=== PATIENT | male | born 1950 | race Caucasian/White ===

== ENCOUNTER 2018-06-24 17:09 | Emergency (ER) | payer MEDICARE, SELFPAY ==
--- NOTE | 2018-06-24 17:18 | DI.RPTCT_ITS ---
SYMPTOM/DIAGNOSIS: ABDOMINAL PAIN, R/O ACUTE PROCESS CT ABDOMEN AND PELVIS: Comparison is made with 29 May 2018. Images were performed from the lung bases through the ischial tuberosities without IV and following oral contrast. Oral contrast is seen in the stomach proximal to mid small bowel. The distal ileum and colon are not yet opacified. Again noted is mild dilatation of loops of small bowel in the right mid abdomen. The bowel is less distended when compared with the previous exam. No focal transition point is seen. No bowel wall thickening is seen. Diverticulosis is again noted in the sigmoid and lower descending colon. There is a small amount of fluid in the low pelvis. Fluid is also seen within a right inguinal hernia, unchanged from the previous exam. The lung bases are clear. Gallstones are noted. There is no gallbladder wall thickening or biliary dilatation. The liver, spleen, pancreas, kidneys and adrenals are unremarkable. The aorta is normal in diameter. Hardware is noted from L3 through L5. There are degenerative changes greatest at L2-3. IMPRESSION: Mild dilatation of loops of small bowel in the right and mid abdomen without definite transition point. The findings could represent continued mild partial small bowel obstruction.
--- NOTE | 2018-06-24 17:18 | DI.REPORT_ITS ---
SYMPTOM/DIAGNOSIS: ABD PAIN, R/O ACUTE DISEASE. AP AND LATERAL CHEST: Comparison is made with 12 Oct 2016. The heart size is normal. The lungs are clear. No infiltrate, effusion or pneumothorax is seen. Osteophytes are noted in the thoracic spine. IMPRESSION: No acute abnormality.
[2018-06-24 17:35] VITALS: BP 162/84; PULSE 84; RESP 18; TEMP 36.9; O2SAT 98
--- NOTE | 2018-06-24 17:58 | ED.GENADUL ---
Disposition Clinical Impression: Abdominal cramping, Epigastric pain Disposition: STILL A PATIENT Condition: Stable Medical Decision Making - Lab Data Laboratory Tests - EKG Data -: EKG Interpreted by Me 06/24/18 1724: 80 bpm. Sinus. Left anterior fascicular block. No acute change compared to previous. - Medical Decision Making 68-year-old male with history of hernia surgery, diabetes, chronic intermittent epigastric and periumbilical abdominal pain for the past few months who was admitted here a few weeks ago for small bowel obstruction and evaluated by surgery and eventually diet was advanced as tolerated and he was discharged home. Patient also has a history of GI bleeding and chronic iron deficiency anemia and had recommended a capsule endoscopy which patient has at [facility] next month. Patient denied any rectal bleeding today. Patient is still taking his MiraLAX and Nexium. Patient has mild distention and minimal epigastric tenderness palpation. He is declining pain medication. Will place an IV, labs and CT abdomen with p.o. contrast as we do not have IV contrast scan are available. 2000: Case endorsed to Dr. Vyas to f/u on labs and imaging. History of Present Illness - General Chief complaint: Abd Prob Stated complaint: SANCHEZ Time Seen by Provider: 06/24/18 17:15 Source: patient Mode of arrival: EMS Limitations: no limitations - History of Present Illness Initial comments: Patient is a 68-year-old male with history of diabetes, hypertension, hyperlipidemia, GERD with a history of chronic abdominal pain for several months who presents for acute worsening of his chronic epigastric abdominal pain today. Patient states the pain has been intermittent, sharp, no relief with Nexium and no aggravating factors. Patient denies fever. Patient states his last bowel movement was this morning and normal. He has been eating and drinking normally. He denies vomiting, diarrhea, shortness of breath, urinary symptoms or chest pain. - Related Data Blood Sugar Diagnostic [One Touch Ultra Test Strips] 1 strip MC DAILY #100 strip 02/05/13 Lancets [Onetouch Delica] 1 each ID DAILY #100 each 02/05/13 Albuterol Sulfate [Proventil Hfa] 2 puff IH QID PRN #1 inhaler 03/30/13 Fluticasone Propionate [Flonase] 2 sprays NS DAILY #3 script 07/12/17 Lisinopril [Prinivil] 20 mg PO DAILY #90 tab-cap 11/27/17 Metoprolol Succinate 50 mg AD HS #90 tab-cap 01/25/18 Esomeprazole [NexIUM] 40 mg PO DAILY #90 tab-cap 02/13/18 Acetaminophen with Codeine [Tylenol with Codeine #4 Tablet] 1 each PO TID #90 tab 04/25/18 Docusate Sodium [Colace] 100 mg PO BID PRN 05/10/18 Iron Polysaccharide Complex [Ferric X-150] 150 mg PO BID #60 cap 05/23/18 Polyethylene Glycol 3350 [Miralax] 17 gm PO DAILY #30 packet 06/01/18 Senna [Senokot] 1 each PO HS #30 tab 06/01/18 Allergies Allergy/AdvReac Type Severity Reaction Status Date / Time Influenza Virus Vaccines Allergy Severe ? allergic Unverified 06/24/18 17:44 reaction to flu vaccine pravastatin AdvReac Intermediate Muscle and Unverified 06/24/18 17:44 joint pain Review of Systems Constitutional: denies: chills, fever Eyes: denies: eye pain ENT: denies: ear pain, dental pain Respiratory: denies: cough, shortness of breath Cardiovascular: denies: chest pain, dyspnea on exertion Gastrointestinal: abdominal pain. denies: nausea, vomiting, diarrhea Genitourinary: denies: urgency, dysuria, frequency Musculoskeletal: denies: back pain Skin: denies: rash, lesions Neurological: denies: headache, weakness, numbness Past Medical History - Past Medical History Medical history: asthma, diabetes, GERD, hyperlipidemia, hypertension Carpal tunnel release Surgical history: herniorraphy, other (Back fusion, Left below the knee amputation ) - Social History Smoking status: never smoker Alcohol use: occasionally Drug use: none General Exam - General Limitations: no limitations General appearance: alert, in no apparent distress - Eye Eye exam: Present: EOMI - Respiratory Respiratory exam: Present: normal lung sounds bilaterally. Absent: respiratory distress, wheezes, rales, rhonchi, stridor - Cardiovascular Cardiovascular Exam: Present: regular rate, normal rhythm. Absent: bradycardia, tachycardia - GI/Abdominal GI/Abdominal exam: Present: soft, distended (Mild), tenderness (Minimal epigastric tenderness), normal bowel sounds. Absent: guarding, rebound, rigid - Extremities Exam Extremities exam: Present: other (Left BKA. Right leg no lower extremity edema) - Neurological Exam Neurological exam: Present: alert, oriented X3 - Psychiatric Psychiatric exam: Present: normal affect - Skin Skin exam: Present: warm, dry, intact Course Vital Signs - 24 hr 06/24/18 17:35 Temperature 98.4 F Pulse 84 Respiratory 18 Rate Blood Pressure 162/84 Pulse Oximetry 98
[2018-06-24] MEDS: Omnipaque 350 MG/ML 50 ML BTL PO (18:13)
[2018-06-24] MEDS: Breeza Beverage 473 ML BTL PO ×2 (18:14→18:15)
[2018-06-24 18:22] LABS: ALT 27 U/L (12-78); AST 25 U/L (15-37); Albumin 3.9 g/dL (3.4-5.0); Alkaline Phosphatase 91 U/L (46-116); Anion Gap 11.3 mmol/L (3-11); BUN 15 mg/dL (7-18); Bilirubin, Total 0.3 mg/dL (0.2-1.0); CO2 24.7 mmol/L (21.0-32.0); CREATININE 1.03 mg/dL (0.70-1.30); Chloride 104 mmol/L (98-107); Glucose 159 mg/dL (70-100); Potassium 4.2 mmol/L (3.5-5.1); Sodium 140 mmol/L (136-145); Total Protein 7.7 g/dL (6.4-8.2)
[2018-06-24 18:23] LABS: Abs Immature Grans 0.03 k/cumm (0.0-0.09); Absolute Basophil Count 0.01 k/cumm (0.0-0.2); Absolute Eosinophil Count 0.06 k/cumm (0.0-0.7); Absolute Lymphocyte Count 0.81 k/cumm (1.2-3.4); Absolute Monocyte Count 0.54 k/cumm (0.11-0.7); Absolute Neutrophil Count 12.35 k/cumm (1.2-6.7); Basophils % 0.1; Eosinophils % 0.4; HCT 36.7 % (40.0-50.0); HGB 11.3 g/dL (13.5-17.5); Immature Grans % 0.2; Lymphocytes % 5.9; Mean Corp. HGB Concentration 30.8 g/dL (32.0-36.0); Mean Corpuscular Hemoglobin 23.3 pg (27.0-33.0); Mean Corpuscular Volume 75.7 fL (80-95); Mean Platelet Volume 11.4 fL (8.0-11.0); Monocytes % 3.9; Neutrophils % 89.5; Platelet Count 323 x1000/uL (130-400); RBC 4.85 m/cumm (4.50-6.00); RBC Distribution Width 20.6 % (11.8-14.1)
[2018-06-24 18:33] LABS: Troponin I < 0.02 ng/mL (0.00-0.06)
[2018-06-24 19:01] LABS: Anisocytosis 3+; Diff Comment RBC Morph Reviewed; Hypochromasia 2+; Microcytosis 2+
[2018-06-24 19:04] LABS: Bilirubin Negative (Negative); Blood Negative (Negative); Clarity Clear; Glucose Negative (Negative); Ketones Negative (Negative); Leukocyte Esterase Negative (Negative); Nitrite Negative (Negative); Specific Gravity 1.015 (1.005-1.025); Urobilinogen 0.2 EU/dL (Up TO 0.2); pH 5.5 (5-8)
--- NOTE | 2018-06-24 19:57 | DI.VRAD_ITS ---
EXAM: XR Chest, 2 Views CLINICAL HISTORY: 68 years old, male; Pain; Chest pain; Type not specified; Additional info: R/O acute process TECHNIQUE: Frontal and lateral views of the chest. COMPARISON: CR - ABD FLAT UPRIGHT PA CHEST 2018-05-31 09:57 FINDINGS: Lungs: Unremarkable. No consolidation. Pleural space: Unremarkable. No pneumothorax. Heart: Unremarkable. No cardiomegaly. Mediastinum: Unremarkable. Bones/joints: Degenerative spondylosis of the thoracic spine. Degenerative arthrosis of both acromioclavicular joints. Soft tissues: Surgical clips within the right lower neck. IMPRESSION: No acute findings. Dictated and Authenticated by: Sinan Collado MD. Ordering:DREW MENDOZA MD
--- NOTE | 2018-06-24 20:11 | DI.VRAD_ITS ---
EXAM: CT Abdomen and Pelvis Without Intravenous Contrast CLINICAL HISTORY: 68 years old, male; Pain; Abdominal pain; Generalized; Prior surgery; Additional info: R/O acute process TECHNIQUE: Axial computed tomography images of the abdomen and pelvis without intravenous contrast. Coronal and sagittal reformatted images were created and reviewed. COMPARISON: CT - ABD PELVIS WITH CONTRAST 2018-05-29 21:31 FINDINGS: Lung bases: Minimal dependent atelectasis in the lung bases. ABDOMEN: Liver: Unremarkable. Gallbladder and bile ducts: Numerous tiny calcified stones within the gallbladder. No gallbladder wall thickening or pericholecystic inflammation. No ductal dilation. Pancreas: Unremarkable. No ductal dilation. Spleen: Unremarkable. No splenomegaly. Adrenals: Unremarkable. No mass. Kidneys and ureters: Unremarkable. No obstructing stones. No hydronephrosis. Stomach and bowel: Diverticulosis of the descending and sigmoid colon. No diverticulitis. No colitis. No obstruction. PELVIS: Appendix: No findings to suggest acute appendicitis. Bladder: Unremarkable. No stones. Reproductive: Unremarkable as visualized. ABDOMEN and PELVIS: Intraperitoneal space: Unremarkable. No free air. No significant fluid collection. Bones/joints: Degenerative spondylosis throughout the visualized spine. Posterior spinal decompression and posterior spinal fusion from L3-L5. No dislocation. Soft tissues: Bilateral inguinal hernias, right larger than left. The right hernia contains fat and a small amount of fluid and the left hernia contains a small amount of fat. Vasculature: Mild atherosclerosis of the abdominal aorta. No aneurysm. Lymph nodes: Unremarkable. No enlarged lymph nodes. IMPRESSION: 1. Cholelithiasis. 2. Colonic diverticulosis. Dictated and Authenticated by: Sinan Collado MD. Ordering:DREW MENDOZA MD
[2018-06-24 21:06] LABS: Troponin I < 0.02 ng/mL (0.00-0.06)
--- NOTE | 2018-06-24 21:27 | ED.FU ---
Disposition Clinical Impression: Abdominal cramping, Epigastric pain Disposition: HOME Condition: Stable Instructions: Epigastric Pain (ED) Additional Instructions: Follow up with your primary care provider this week if pain returns and doesn't go away, or is a lot worse, or you have persistent vomit or difficulty breathing return to the emergency department Prescriptions: Ondansetron ODT [Zofran Odt] 4 mg PO Q8H PRN PRN #30 tabef PRN Reason: Nausea / Vomiting Medical Decision Making - Lab Data Laboratory Tests 06/24/18 06/24/18 06/24/18 17:18 17:30 17:30 WBC 13.80 H RBC 4.85 Hgb 11.3 L Hct 36.7 L MCV 75.7 L MCH 23.3 L MCHC 30.8 L RDW 20.6 H Plt Count 323 MPV 11.4 H Immature Gran % 0.2 Neutrophils % 89.5 Lymphocytes % 5.9 Monocytes % 3.9 Eosinophils % 0.4 Basophils % 0.1 Absolute Neutrophils 12.35 H Absolute Lymphocytes 0.81 L Absolute Monocytes 0.54 Absolute Eosinophils 0.06 Absolute Basophils 0.01 Differential Comment Rbc morph reviewed RBC Morphology See below Hypochromasia 2+ Anisocytosis 3+ Microcytosis 2+ Sodium Cancelled 140 Potassium Cancelled 4.2 Chloride Cancelled 104 Carbon Dioxide Cancelled 24.7 Anion Gap Cancelled 11.3 H BUN Cancelled 15 Creatinine Cancelled 1.03 Estimated GFR/1.73 m2 Cancelled >= 60.00 Glucose Cancelled 159 H Calcium Cancelled 9.0 Magnesium 2.0 Total Bilirubin Cancelled 0.3 AST Cancelled 25 ALT Cancelled 27 Alkaline Phosphatase Cancelled 91 Troponin I < 0.02 Total Protein Cancelled 7.7 Albumin Cancelled 3.9 Urine Color Urine Clarity Urine pH Ur Specific [place] Urine Protein Urine Ketones Urine Blood Urine Nitrite Urine Bilirubin Urine Urobilinogen Ur Leukocyte Esterase Urine Glucose 06/24/18 06/24/18 18:35 20:22 WBC RBC Hgb Hct MCV MCH MCHC RDW Plt Count MPV Immature Gran % Neutrophils % Lymphocytes % Monocytes % Eosinophils % Basophils % Absolute Neutrophils Absolute Lymphocytes Absolute Monocytes Absolute Eosinophils Absolute Basophils Differential Comment RBC Morphology Hypochromasia Anisocytosis Microcytosis Sodium Potassium Chloride Carbon Dioxide Anion Gap BUN Creatinine Estimated GFR/1.73 m2 Glucose Calcium Magnesium Total Bilirubin AST ALT Alkaline Phosphatase Troponin I < 0.02 Total Protein Albumin Urine Color Yellow Urine Clarity Clear Urine pH 5.5 Ur Specific [place] 1.015 Urine Protein Negative Urine Ketones Negative Urine Blood Negative Urine Nitrite Negative Urine Bilirubin Negative Urine Urobilinogen 0.2 Ur Leukocyte Esterase Negative Urine Glucose Negative Results reviewed for labs ordered during visit: Yes - Radiology Data Radiology results: report reviewed, image reviewed Care Signed Out By:: Dr. Lyman - Vital Signs Recent Vitals - 8H: Vital Signs - 8 hr 06/24/18 17:35 Temperature 98.4 F Pulse 84 Respiratory 18 Rate Blood Pressure 162/84 Pulse Oximetry 98 - Continuation of Care Continuation of Care Plan: Pt's repeat troponin negative, hsi imaging showed no acute findings. He states his cramping adominal attack that was in the mid abdomen has resolved and he has no pain now and no n/v. Unclear what caused his symptoms earlier but given he has no symptoms now and has reassuring imaging and labs feel he is stable for d/c and will have him f/u with his pcp, return precautions given
[2018-06-24 21:50] VITALS: BP 162/84; PULSE 84; RESP 18; TEMP 36.9; O2SAT 98
--- NOTE | 2018-06-25 08:47 | PDOC.ERCMPRO ---
Care Management Progress Note 06/25-Yesica LYLES requested assistance with a PCP (Yin RUVALCABA) this week for epigastric pain. Referral faxed to [facility] this am.
[2018-06-26 10:55] LABS: Lyme Ab w Rflx to Lyme Confirm Negative
[2018-06-26 22:12] LABS: Anaplasma phagocytophilum Negative (Negative); B. miyamotoi PCR Negative (Negative); Babesia divergens/MO-1 Negative (Negative); Babesia duncani Negative (Negative); Babesia microti Negative (Negative); Ehrlichia chaffeensis Negative (Negative); Ehrlichia ewingii/canis Negative (Negative); Ehrlichia muris eauclairensis Negative (Negative)
== END 2018-06-24 21:48 | disposition still patient (30) ==
PROVIDERS: Physician Assistant; Emergency Provider Emergency Medicine; PCP Internal Medicine
DX: R10.13 Epigastric pain (principal); R10.33 Periumbilical pain; I10 Essential (primary) hypertension; E11.9 Type 2 diabetes mellitus without complications
CPT/HCPCS: 71046; 74176; 93005; 99285 ×2; Q9967; 36410; 36415; 80053; 81003; 83735; 84484; 85025; 86618; 87798; 93010

== ENCOUNTER 2018-07-01 06:08 | Inpatient (IN) | payer MEDICARE, SELFPAY ==
[2018-07-01] VITALS (7 sets, daily range): BP systolic 131–170; BP diastolic 71–104; PULSE 63–106; RESP 16–20; TEMP 36.5–37.2; O2SAT 97–98
--- NOTE | 2018-07-01 06:31 | ED.GENADUL ---
Disposition Disposition: STILL A PATIENT Medical Decision Making - Lab Data Laboratory Results - last 24 hr 07/01/18 07/01/18 06:35 06:35 WBC 11.37 H RBC 4.97 Hgb 11.8 L Hct 38.2 L MCV 76.9 L MCH 23.7 L MCHC 30.9 L RDW 20.2 H Plt Count 302 MPV 10.8 Immature Gran % 0.2 Neutrophils % 88.0 Lymphocytes % 6.8 Monocytes % 4.5 Eosinophils % 0.4 Basophils % 0.1 Absolute Neutrophils 10.01 H Absolute Lymphocytes 0.77 L Absolute Monocytes 0.51 Absolute Eosinophils 0.05 Absolute Basophils 0.01 Sodium 140 Potassium 4.1 Chloride 103 Carbon Dioxide 26.4 Anion Gap 10.6 BUN 18 Creatinine 1.03 Estimated GFR/1.73 m2 >= 60.00 Glucose 156 H Calcium 9.3 Magnesium 1.7 L Total Bilirubin 0.3 AST 26 ALT 28 Alkaline Phosphatase 89 Troponin I < 0.02 Total Protein 8.0 Albumin 4.1 Lipase 140 - EKG Data EKG shows normal: sinus rhythm 07/01/18 06:40 Normal sinus rhythm with intraventricular conduction delay and repolarization abnormality that is similar to that present on tracing from June 24. - Medical Decision Making 68-year-old male presents emergency department today complaining of the gradual onset over hours of abdominal distention and pain associated with nausea and vomiting. He is afebrile, mildly tachycardic and slightly hypertensive. His recent past medical history is notable for workup on June [address] scan that showed question partial small bowel obstruction. Review of records also reveals admission June 01 for partial small bowel obstruction. 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 Today differential diagnosis includes complete versus partial small bowel obstruction, ileus, enteritis. IV placed, patient given parenteral medications for pain and nausea, referred for laboratory testing CT with contrast. Labs: White count 11, hematocrit 38, platelets 302. Sodium 140, potassium 4.1, chloride 103, bicarb 26, BUN 18, creatinine 1.0. LFTs within normal limits, troponin negative, lipase 140. She has had some improvement with parenteral analgesic and antiemetic. At the time of dictation, he is awaiting CT imaging and the case will be signed out to Dr. Vyas pending review of the imaging studies and final disposition. Please see his note. History of Present Illness - General Chief complaint: Nausea/Vomit/Diar Stated complaint: STOMACH PAINS/CAMERA? Time Seen by Provider: 07/01/18 06:21 Source: patient, family, RN notes reviewed Mode of arrival: ambulatory Limitations: no limitations - History of Present Illness Initial comments: Abdominal pain: 68-year-old male states that he developed the gradual onset of abdominal distention, bloating, crampy moderate pain it is located in the mid abdomen. It was associated with nausea and one episode of emesis tonight. Similar to previous. No exacerbating or ameliorating factors. He states that this is been occurring intermittently over 3 months time since April. He has been worked up at [facility] including recent capsule endoscopy that he has yet the past. He states that 3 weeks ago he was admitted for partial small bowel obstruction. - Related Data Blood Sugar Diagnostic [One Touch Ultra Test Strips] 1 strip MC DAILY #100 strip 02/05/13 Lancets [Onetouch Delica] 1 each ID DAILY #100 each 02/05/13 Albuterol Sulfate [Proventil Hfa] 2 puff IH QID PRN #1 inhaler 03/30/13 Fluticasone Propionate [Flonase] 2 sprays NS DAILY #3 script 07/12/17 Lisinopril [Prinivil] 20 mg PO DAILY #90 tab-cap 11/27/17 Metoprolol Succinate 50 mg AD HS #90 tab-cap 01/25/18 Esomeprazole [NexIUM] 40 mg PO DAILY #90 tab-cap 02/13/18 Acetaminophen with Codeine [Tylenol with Codeine #4 Tablet] 1 each PO TID #90 tab 04/25/18 Docusate Sodium [Colace] 100 mg PO BID PRN 05/10/18 Polyethylene Glycol 3350 [Miralax] 17 gm PO DAILY #30 packet 06/01/18 Senna [Senokot] 1 each PO HS #30 tab 06/01/18 Allergies Allergy/AdvReac Type Severity Reaction Status Date / Time Influenza Virus Vaccines Allergy Severe ? allergic Unverified 07/01/18 06:15 reaction to flu vaccine pravastatin AdvReac Intermediate Muscle and Unverified 07/01/18 06:15 joint pain Review of Systems Other: 8 systems reviewed, otherwise negative Past Medical History - Past Medical History Medical history: asthma, diabetes, GERD, hyperlipidemia, hypertension Carpal tunnel release Surgical history: herniorraphy, other (Back fusion, Left below the knee amputation ) - Social History Alcohol use: occasionally Drug use: none General Exam - General Limitations: no limitations General appearance: alert, in no apparent distress - Head Head exam: Present: atraumatic, normocephalic - Eye Eye exam: Present: PERRL, EOMI - ENT ENT exam: Present: normal exam, mucous membranes dry - Neck Neck exam: Present: normal inspection, full ROM - Respiratory Respiratory exam: Present: normal lung sounds bilaterally. Absent: respiratory distress, chest wall tenderness - Cardiovascular Cardiovascular Exam: Present: regular rate, normal rhythm. Absent: systolic murmur - GI/Abdominal GI/Abdominal exam: Present: soft, distended, tenderness, diminished bowel sounds, other (Distended, tender, mildly tympanitic. There is no guarding or rebound) - Rectal Rectal exam: Present: deferred - Extremities Exam Extremities exam: Present: normal inspection, normal capillary refill - Neurological Exam Neurological exam: Present: alert, oriented X3 - Psychiatric Psychiatric exam: Present: normal affect, normal mood - Skin Skin exam: Present: warm, dry, intact Course Vital Signs - 24 hr 07/01/ 06:12 Temperature 36.5 C Pulse 106 H Respiratory 20 Rate Blood Pressure 156/104 Pulse Oximetry 97
[2018-07-01] MEDS: Normal Saline Flush 10 ML SYR IVP ×5 (06:44→22:59)
[2018-07-01] MEDS: Ondansetron 4 MG/2 ML VIAL IVP (06:44)
[2018-07-01] MEDS: MORPHine 10 MG/ML VIAL 4 MG IVP (06:44)
[2018-07-01 06:45] LABS: Abs Immature Grans 0.02 k/cumm (0.0-0.09); Absolute Basophil Count 0.01 k/cumm (0.0-0.2); Absolute Lymphocyte Count 0.77 k/cumm (1.2-3.4); Absolute Monocyte Count 0.51 k/cumm (0.11-0.7); Basophils % 0.1; Eosinophils % 0.4; HCT 38.2 % (40.0-50.0); HGB 11.8 g/dL (13.5-17.5); Immature Grans % 0.2; Lymphocytes % 6.8; Mean Corp. HGB Concentration 30.9 g/dL (32.0-36.0); Mean Corpuscular Hemoglobin 23.7 pg (27.0-33.0); Mean Corpuscular Volume 76.9 fL (80-95); Mean Platelet Volume 10.8 fL (8.0-11.0); Monocytes % 4.5; Platelet Count 302 x1000/uL (130-400); RBC 4.97 m/cumm (4.50-6.00); RBC Distribution Width 20.2 % (11.8-14.1); White Blood Cell Count 11.37 k/cumm (4.4-10.8)
[2018-07-01] MEDS: Normal Saline 1,000 ML 150 ML IV (06:45)
[2018-07-01 06:46] LABS: Absolute Eosinophil Count 0.05 k/cumm (0.0-0.7); Absolute Neutrophil Count 10.01 k/cumm (1.2-6.7)
[2018-07-01 07:01] LABS: ALT 28 U/L (12-78); AST 26 U/L (15-37); Albumin 4.1 g/dL (3.4-5.0); Alkaline Phosphatase 89 U/L (46-116); Anion Gap 10.6 mmol/L (3-11); BUN 18 mg/dL (7-18); Bilirubin, Total 0.3 mg/dL (0.2-1.0); CO2 26.4 mmol/L (21.0-32.0); CREATININE 1.03 mg/dL (0.70-1.30); Calcium 9.3 mg/dL (8.5-10.1); Chloride 103 mmol/L (98-107); Glucose 156 mg/dL (70-100); Lipase 140 U/L (73-393); Magnesium 1.7 mg/dL (1.8-2.4); Potassium 4.1 mmol/L (3.5-5.1); Sodium 140 mmol/L (136-145)
[2018-07-01 07:02] LABS: Troponin I < 0.02 ng/mL (0.00-0.06)
--- NOTE | 2018-07-01 07:02 | DI.RPTCT_ITS ---
SYMPTOMS/DIAGNOSIS: HX OF PARTIAL SMALL BOWEL OBSTRUCTION, DISTENTION AND PAIN , VOMITING CT OF THE ABDOMEN AND PELVIS: Comparison is made with [id number]. The liver again shows fatty infiltration. There is a tiny amount of ascites seen posterior to the liver, unchanged. There is no biliary dilatation. Stones are noted at the dependent portion of the gallbladder. There is no gallbladder wall thickening. The spleen is normal in size. The pancreas, adrenals and kidneys are unremarkable. There is diverticulosis but no evidence of diverticulitis. A metallic density is seen in the small bowel which is mildly dilated on the right side of the abdomen. There is no bowel wall thickening. IMPRESSION: Mild small bowel dilatation in the right side of the abdomen. Ingested electronic device. Clinical correlation is recommended.
[2018-07-01] MEDS: Omnipaque 350 MG/ML 50 ML BTL PO (07:08)
[2018-07-01] MEDS: Breeza Beverage 473 ML BTL PO ×2 (07:09→07:10)
[2018-07-01] MEDS: Omnipaque 350 MG/ML 100 ML BTL IJ (08:14)
[2018-07-01 08:38] LABS: Bilirubin Negative (Negative); Blood Negative (Negative); Clarity Clear; Glucose Negative (Negative); Ketones Negative (Negative); Leukocyte Esterase Negative (Negative); Nitrite Negative (Negative); Urobilinogen 0.2 EU/dL (Up TO 0.2); pH 5.5 (5-8)
--- NOTE | 2018-07-01 08:45 | DI.VRAD_ITS ---
EXAM: CT Abdomen and Pelvis With Intravenous Contrast EXAM DATE/TIME: Exam ordered 07/01/2018 7:03 AM CLINICAL HISTORY: 68 years old, male; Signs and symptoms; Other: History of partial small bowel obstruction, distention and pain, vomit; Additional info: Pt unable to tolerate all of oral contrast TECHNIQUE: Axial computed tomography images of the abdomen and pelvis with intravenous contrast. All CT scans at this facility use at least one of these dose optimization techniques: automated exposure control; mA and/or kV adjustment per patient size (includes targeted exams where dose is matched to clinical indication); or iterative reconstruction. Coronal and sagittal reformatted images were created and reviewed. CONTRAST: 100 mL of omnipaque 350 administered intravenously. COMPARISON: CT - ABD PELVIS WITH CONTRAST 2018-05-29 21:31 FINDINGS: Lung bases: Unremarkable. No mass. No consolidation. ABDOMEN: Liver: Enlarged, fatty liver. Gallbladder and bile ducts: Cholelithiasis. Pancreas: Unremarkable. Spleen: Unremarkable. Adrenals: Unremarkable. Kidneys and ureters: Stable left renal parapelvic cysts. No stones or hydronephrosis. Stomach and bowel: There are dilated loops of small bowel in the lower abdomen to 3 cm with a transition zone in the right lower quadrant consistent with obstruction. There is a 1.2 cm foreign body in the more proximal right lower quadrant small bowel which may be an endoscopic camera. Correlate clinically. Colonic diverticulosis. PELVIS: Appendix: No signs to suggest appendicitis. Bladder: Unremarkable. Reproductive: Unremarkable as visualized. ABDOMEN and PELVIS: Intraperitoneal space: No free air. Mild ascites. Bones/joints: Degenerative changes throughout the spine and post surgical changes in the lower lumbar region. Soft tissues: Small fat and fluid containing right inguinal hernia. Vasculature: Atherosclerotic aorta without aneurysm. Lymph nodes: No pathologic size nodes. IMPRESSION: Small bowel obstruction with transition zone in the right lower quadrant, possibly related to adhesions. Colonic diverticulosis. 1.2 cm metallic foreign body in the distal small bowel proximal to the site of obstruction which may be an endoscopic camera. Correlate clinically. Small fat and fluid containing right inguinal hernia. Cholelithiasis. Fatty, enlarged liver. Dictated and Authenticated by: Theresa Hernández MD. Ordering:CLARITZA SAMANIEGO MD
--- NOTE | 2018-07-01 09:04 | ED.FU ---
Disposition Clinical Impression: Small bowel obstruction Disposition: [facility]PAT[facility] Condition: Stable Medical Decision Making - Lab Data Laboratory Tests 07/01/18 07/01/18 07/01/18 06:35 06:35 08:32 WBC 11.37 H RBC 4.97 Hgb 11.8 L Hct 38.2 L MCV 76.9 L MCH 23.7 L MCHC 30.9 L RDW 20.2 H Plt Count 302 MPV 10.8 Immature Gran % 0.2 Neutrophils % 88.0 Lymphocytes % 6.8 Monocytes % 4.5 Eosinophils % 0.4 Basophils % 0.1 Absolute Neutrophils 10.01 H Absolute Lymphocytes 0.77 L Absolute Monocytes 0.51 Absolute Eosinophils 0.05 Absolute Basophils 0.01 Sodium 140 Potassium 4.1 Chloride 103 Carbon Dioxide 26.4 Anion Gap 10.6 BUN 18 Creatinine 1.03 Estimated GFR/1.73 m2 >= 60.00 Glucose 156 H Calcium 9.3 Magnesium 1.7 L Total Bilirubin 0.3 AST 26 ALT 28 Alkaline Phosphatase 89 Troponin I < 0.02 Total Protein 8.0 Albumin 4.1 Lipase 140 Urine Color Yellow Urine Clarity Clear Urine pH 5.5 Ur Specific [place] 1.020 Urine Protein Negative Urine Ketones Negative Urine Blood Negative Urine Nitrite Negative Urine Bilirubin Negative Urine Urobilinogen 0.2 Ur Leukocyte Esterase Negative Urine Glucose Negative Results reviewed for labs ordered during visit: Yes - Radiology Data Radiology results: report reviewed, image reviewed Care Signed Out By:: dr narayanan - Vital Signs Recent Vitals - 8H: Vital Signs - 8 hr 07/01/18 06:12 Temperature 97.7 F Pulse 106 H Respiratory 20 Rate Blood Pressure 156/104 Pulse Oximetry 97 - Continuation of Care Continuation of Care Plan: Patient remains stable at this time, still has some pain so given additional dose of morphine with good relief. He has an sbo on ct with transition piont in right lower quadrant, metallic foreign body is the endoscopic camera that he swallowed . Spoke with Dr. Casiano who is going to come in and admit the patient and asks an ng tube to be placed which nursing will place
--- NOTE | 2018-07-01 09:27 | DI.REPORT_ITS ---
SYMPTOM/DIAGNOSIS: CONFIRM NG TUBE PLACEMENT PORTABLE SEMI-ERECT CHEST: Comparison is made with 24 Jun 2018. Nasogastric tube has been inserted. The tip lies at the level of the diaphragm , at the G-E junction. The side hole is in the lower esophagus. The lungs appear clear. The heart size is within normal limits. IMPRESSION: Nasogastric tube lies in the distal esophagus.
[2018-07-01] MEDS: Benzocaine 20% 60 ML CAN (09:28)
[2018-07-01] MEDS: Lidocaine 2% Viscous 15 ML CUP (09:28)
--- NOTE | 2018-07-01 09:52 | PDOC.HP ---
Date of Service: 07/01/18 Time of Service: 09:45 Assessment/Plan - Assessment/Plan (1) Small bowel obstruction Assessment: SBO, status post capsule endoscopy. Capsule is above the obstruction. Minimal output from the Ng tube except air. Abdomen is soft, no guarding or rebound Plan: Awaiting call back from Gastroenterology regrading case. May benefit from transfer but will see what they recommend. GI recommends admission for 24 hours with NG decompression. AXR and CXR in am to see if things have improved. If no improvement then will need surgery to remove the small bowel and capsule. This was discussed with the patient and his . Their questions have been answered and they agree with the plan. Will discuss case with anesthesia tomorrow as well for possible surgery. (2) Cardiomyopathy Assessment: Mild Cardiomyopathy. Last ECHO done a few months ago showed EF of 40-45%. NO chest pain or shortness of breath at this time Plan: Continue Cardiac meds as soon as able to eat and drink. Will give IV Lopressor as needed for Hypertension History of Present Illness - History of Present Illness Chief Complaint: Small bowel obsruction after capsule endoscopy History of Present Illness: Mr. Ledezma is known to me from a few months ago. He developed a partial small bowel obstruction and was also noted to be anemic. After the obstruction resolved he underwent a Colonoscopy and Upper endoscopy which showed no source of bleeding. Patient was referred to Gastroenterology and he was set up for capsule endoscopy. He swallowed the capsule on . Last night he developed acute abdominal pain, nausea and vomiting and came to the ED. CT scan showed small bowel obstruction with transition zone in the RLQ as well as the capsule above it. NG tube was placed to decompress his abdomen. NO fluid from NG tube just air. He states his abdomen feels better since the NG tube was placed. Patient had soft BM at 4:30 this am - Past Medical History Cardiac: CAD, HTN, Hyperlipidemia, Other (EF 45%) Pulmonary: Asthma GRAPE GROWER: Carpal Tunnel Syndrome Gastrointestinal: Diverticulosis, GERD, Other (Hx of PSBO, Hx of colon polyp 2014) Heme/Onc: Iron deficiency anemia Musculoskeletal: Chronic low back pain Renal/: Benign prostatic enlarg. 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 Dyspnea, Edema, Light Headedness, Other Gastrointestinal: Nausea, Vomiting, Abdominal Pain. denies: Diarrhea, Constipation, Melena, Hematochezia, Other Genitourinary: denies: Dysuria, Frequency, Incontinence, Hematuria, Retention, Other Musculoskeletal: denies: Neck Pain, Shoulder Pain, Arm Pain, Back Pain, Hand Pain, Leg Pain, Foot Pain, Other Skin: denies: Rash, Lesions, Ted, Bruising, Other Neurological: denies: Weakness, Numbness, Incoordination, Change in Speech, Confusion, Seizures, Other - Medications/Allergies Allergies/Adverse Reactions: Allergies Allergy/AdvReac Type Severity Reaction Status Date / Time Influenza Virus Vaccines Allergy Severe ? allergic Unverified 07/01/18 06:15 reaction to flu vaccine pravastatin AdvReac Intermediate Muscle and Unverified 07/01/18 06:15 joint pain Medications: Current Medications Benzocaine (Hurricaine 20%) Confirm Administered Dose 60 ml .ROUTE .DM PRN Last Admin: 07/01/18 09:28 Dose: 2 sprays Sodium Chloride (Saline 1000ml Bag) 1,000 mls @ 150 mls/hr IV INFUSION [facility] Last Admin: 07/01/18 06:45 Dose: 150 mls/hr IV Miscellaneous Supplies () [address] [facility] Lidocaine HCl (Xylocaine Viscous 2%) Confirm Administered Dose 15 ml .ROUTE .DM PRN Last Admin: 07/01/18 09:28 Dose: 15 ml Miscellaneous Medication (Breeza Tropical Fruit Flavor) [address] [facility] Last Admin: 07/01/18 07:10 Dose: 473 ml Sodium Chloride (Saline Flush 10 Ml Syringe) 0 ml IVP PRN PRN Last Admin: 07/01/18 06:44 Dose: 30 ml Objective - Exam Vitals and I&O: Vital Signs Temp 36.5 C 08/19/18 06:12 Pulse 106 H 07/01/18 06:12 Resp 20 07/01/18 06:12 BP 156/104 07/01/18 06:12 Pulse Ox 97 07/01/18 06:12 Intake & Output 06/30/18 06/30/18 07/01/18 11:59 23:59 11:59 Weight 90.718 kg Other: Stool Size Moderate Stool Characteristics Soft Brown Emesis Description None General: Alert, Oriented x3, Cooperative, No acute distress HEENT: Atraumatic, PERRLA Neck: Supple Lungs: Clear to auscultation, Normal air movement Cardiovascular: Regular rate. denies: Murmurs, Gallops, Rubs Abdomen: Soft, Other (Non-tender, hyperactive BS) Psych/Mental Status: Mental status NL Results - Laboratory Data Result Diagrams: 07/01/18 06:35 07/01/18 06:35 Laboratory Results: Laboratory Tests 07/01/18 07/01/18 07/01/18 06:35 06:35 08:32 WBC 11.37 H RBC 4.97 Hgb 11.8 L Hct 38.2 L MCV 76.9 L MCH 23.7 L MCHC 30.9 L RDW 20.2 H Plt Count 302 MPV 10.8 Immature Gran % 0.2 Neutrophils % 88.0 Lymphocytes % 6.8 Monocytes % 4.5 Eosinophils % 0.4 Basophils % 0.1 Absolute Neutrophils 10.01 H Absolute Lymphocytes 0.77 L Absolute Monocytes 0.51 Absolute Eosinophils 0.05 Absolute Basophils 0.01 Sodium 140 Potassium 4.1 Chloride 103 Carbon Dioxide 26.4 Anion Gap 10.6 BUN 18 Creatinine 1.03 Estimated GFR/1.73 m2 >= 60.00 Glucose 156 H Calcium 9.3 Magnesium 1.7 L Total Bilirubin 0.3 AST 26 ALT 28 Alkaline Phosphatase 89 Troponin I < 0.02 Total Protein 8.0 Albumin 4.1 Lipase 140 Urine Color Yellow Urine Clarity Clear Urine pH 5.5 Ur Specific [place] 1.020 Urine Protein Negative Urine Ketones Negative Urine Blood Negative Urine Nitrite Negative Urine Bilirubin Negative Urine Urobilinogen 0.2 Ur Leukocyte Esterase Negative Urine Glucose Negative
--- NOTE | 2018-07-01 09:56 | PDOC.HP_ITS ---
Date of Service: 07/01/18 Time of Service: 09:45 Assessment/Plan - Assessment/Plan (1) Small bowel obstruction Assessment: SBO, status post capsule endoscopy. Capsule is above the obstruction. Minimal output from the Ng tube except air. Abdomen is soft, no guarding or rebound Plan: Awaiting call back from Gastroenterology regrading case. May benefit from transfer but will see what they recommend. GI recommends admission for 24 hours with NG decompression. AXR and CXR in am to see if things have improved. If no improvement then will need surgery to remove the small bowel and capsule. This was discussed with the patient and his . Their questions have been answered and they agree with the plan. Will discuss case with anesthesia tomorrow as well for possible surgery. (2) Cardiomyopathy Assessment: Mild Cardiomyopathy. Last ECHO done a few months ago showed EF of 40-45%. NO chest pain or shortness of breath at this time Plan: Continue Cardiac meds as soon as able to eat and drink. Will give IV Lopressor as needed for Hypertension History of Present Illness - History of Present Illness Chief Complaint: Small bowel obsruction after capsule endoscopy History of Present Illness: Mr. Ledezma is known to me from a few months ago. He developed a partial small bowel obstruction and was also noted to be anemic. After the obstruction resolved he underwent a Colonoscopy and Upper endoscopy which showed no source of bleeding. Patient was referred to Gastroenterology and he was set up for capsule endoscopy. He swallowed the capsule on . Last night he developed acute abdominal pain, nausea and vomiting and came to the ED. CT scan showed small bowel obstruction with transition zone in the RLQ as well as the capsule above it. NG tube was placed to decompress his abdomen. NO fluid from NG tube just air. He states his abdomen feels better since the NG tube was placed. 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 Dyspnea, Edema, Light Headedness, Other Gastrointestinal: Nausea, Vomiting, Abdominal Pain. denies: Diarrhea, Constipation, Melena, Hematochezia, Other Genitourinary: denies: Dysuria, Frequency, Incontinence, Hematuria, Retention, Other Musculoskeletal: denies: Neck Pain, Shoulder Pain, Arm Pain, Back Pain, Hand Pain, Leg Pain, Foot Pain, Other Skin: denies: Rash, Lesions, Ted, Bruising, Other Neurological: denies: Weakness, Numbness, Incoordination, Change in Speech, Confusion, Seizures, Other - Medications/Allergies Allergies/Adverse Reactions: Allergies Allergy/AdvReac Type Severity Reaction Status Date / Time Influenza Virus Vaccines Allergy Severe ? allergic Unverified 07/01/18 06:15 reaction to flu vaccine pravastatin AdvReac Intermediate Muscle and Unverified 07/01/18 06:15 joint pain Medications: Current Medications Benzocaine (Hurricaine 20%) Confirm Administered Dose 60 ml .ROUTE .DM PRN Last Admin: 07/01/18 09:28 Dose: 2 sprays Sodium Chloride (Saline 1000ml Bag) 1,000 mls @ 150 mls/hr IV [facility] Last Admin: 07/01/18 06:45 Dose: 150 mls/hr IV Miscellaneous Supplies () 1 each IV [facility] Lidocaine HCl (Xylocaine Viscous 2%) Confirm Administered Dose 15 ml .ROUTE .DM PRN Last Admin: 07/01/18 09:28 Dose: 15 ml Miscellaneous Medication (Breeza Tropical Fruit Flavor) 473 ml PO [facility] Last Admin: 07/01/18 07:10 Dose: 473 ml Sodium Chloride (Saline Flush 10 Ml Syringe) 0 ml IVP PRN PRN Last Admin: 07/01/18 06:44 Dose: 30 ml Objective - Exam Vitals and I&O: Vital Signs Temp 36.5 C 08/19/18 06:12 Pulse 106 H 07/01/18 06:12 Resp 20 07/01/18 06:12 BP 156/104 07/01/18 06:12 Pulse Ox 97 07/01/18 06:12 Intake & Output 06/30/18 06/30/18 07/01/18 11:59 23:59 11:59 Weight 90.718 kg Other: Stool Size Moderate Stool Characteristics Soft Brown Emesis Description None General: Alert, Oriented x3, Cooperative, No acute distress HEENT: Atraumatic, PERRLA Neck: Supple Lungs: Clear to auscultation, Normal air movement Cardiovascular: Regular rate. denies: Murmurs, Gallops, Rubs Abdomen: Soft, Other (Non-tender, hyperactive BS) Psych/Mental Status: Mental status NL Results - Laboratory Data Result Diagrams: 07/01/18 06:35 07/01/18 06:35 Laboratory Results: Laboratory Tests 07/01/18 07/01/18 07/01/18 06:35 06:35 08:32 WBC 11.37 H RBC 4.97 Hgb 11.8 L Hct 38.2 L MCV 76.9 L MCH 23.7 L MCHC 30.9 L RDW 20.2 H Plt Count 302 MPV 10.8 Immature Gran % 0.2 Neutrophils % 88.0 Lymphocytes % 6.8 Monocytes % 4.5 Eosinophils % 0.4 Basophils % 0.1 Absolute Neutrophils 10.01 H Absolute Lymphocytes 0.77 L Absolute Monocytes 0.51 Absolute Eosinophils 0.05 Absolute Basophils 0.01 Sodium 140 Potassium 4.1 Chloride 103 Carbon Dioxide 26.4 Anion Gap 10.6 BUN 18 Creatinine 1.03 Estimated GFR/1.73 m2 >= 60.00 Glucose 156 H Calcium 9.3 Magnesium 1.7 L Total Bilirubin 0.3 AST 26 ALT 28 Alkaline Phosphatase 89 Troponin I < 0.02 Total Protein 8.0 Albumin 4.1 Lipase 140 Urine Color Yellow Urine Clarity Clear Urine pH 5.5 Ur Specific [place] 1.020 Urine Protein Negative Urine Ketones Negative Urine Blood Negative Urine Nitrite Negative Urine Bilirubin Negative Urine Urobilinogen 0.2 Ur Leukocyte Esterase Negative Urine Glucose Negative
--- NOTE | 2018-07-01 10:59 | DI.VRAD_ITS ---
EXAM: XR Chest, 1 View EXAM DATE/TIME: 07/01/2018 9:29 AM CLINICAL HISTORY: 68 years old, male; Signs and symptoms; Other: Confirm ng tube placement TECHNIQUE: Frontal view of the chest. COMPARISON: CR - CHEST 2 VIEWS PA,LAT 2018-06-24 17:48 FINDINGS: Lungs: The lungs are clear. Pleural space: Unremarkable. No pneumothorax. Heart: Unremarkable. No cardiomegaly. Mediastinum: Unremarkable. Bones/joints: Surgical clips in the right neck.There is no evidence of acute fracture. Tubes, lines and devices: Tracheostomy tube in place. ET tube is at the EG junction with the proximal sidehole in the distal esophagus, 7 cm above the diaphragm. IMPRESSION: NG tube is high in position in the distal esophagus and tip at the EG junction. Dictated and Authenticated by: Marielos Scott MD. Ordering:AFTAB WISDOM MD
[2018-07-01] MEDS: Pantoprazole 40 MG VIAL IVP (12:03)
[2018-07-01] MEDS: Enoxaparin 30 MG/0.3 ML SYR SC (12:04)
[2018-07-01] MEDS: MAGNESIUM SULFATE 2 GM/50 ML BAG IVPB (12:05)
[2018-07-01] MEDS: Ketorolac 15 MG/ML VIAL IVP ×2 (12:42→19:21)
--- NOTE | 2018-07-01 12:54 | PDOC.CMIN ---
Date of Service: 07/01/18 Time of Service: 12:55 Care Management Initial Assess REASON FOR HOSPITALIZATION:: Small bowel obstruction, retained capsule. PAST MEDICAL HISTORY/PAST SURGICAL HISTORY:: Asthma, diabetes, hyperlipidemia, hypertension, carpal tunnel release. Surgical hernirraphy, back fusion, left BKA. PREVIOUS FUNCTIONAL STATUS/SOCIAL/FAMILY SUPPORTS:: Warren lives in his own home in [place] with his , Yoko. He has one adult child who resides locally. 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 He is independent with his ADLs and transportation. CURRENT FUNCTIONAL STATUS:: Warren is sitting at the edge of his bed when CM visits this afternoon. He is engaged in conversation, makes good eye contact and is talkative. Pt is familiar to CM as he was a patient on 05/30 for a SBO. He reports moderate pain and has a NG tube in place. He is NPO and recieving IV fluids. Warren reports that there is a question of whether he will have surgery at [facility] tomorrow or transfer to [facility]. ADVANCE DIRECTIVES:: On file at [facility]. Has patient been provided with information about the portal?: No Did the patient sign up for the portal?: No CODE STATUS:: Full Code INSURANCE COVERAGE / FINANCIAL ISSUES:: Medicare, Financial Asst. 100. CURRENT HOME/COMMUNITY SERVICES/EQUIPMENT:: No current services. Pt utilizes a cane and walker for ambulation at home. PRIMARY CARE PHYSICIAN:: Yoko Esqueda. POTENTIAL DISCHARGE NEEDS:: Follow up appointment with primary care provider. PATIENT/FAMILY EDUCATION NEEDS:: Discharge education, limitations and follow up plan of care. Ask Me Three discussion. ANTICIPATED BARRIERS TO DISCHARGE:: No anticipated barriers to discharge. TRANSPORTATION:: Warren will transport via private vehicle with , Yoko. PLAN:: Question regarding transfer to [facility] or OR at [facility]. CM will continue to provide support to patient, family and care team regarding discharge planning and disposition.
--- NOTE | 2018-07-01 13:18 | INITIAL_ITS ---
Date of Service: 07/01/18 Time of Service: 12:55 Care Management Initial Assess REASON FOR HOSPITALIZATION:: Small bowel obstruction, retained capsule. PAST MEDICAL HISTORY/PAST SURGICAL HISTORY:: Asthma, diabetes, hyperlipidemia, hypertension, carpal tunnel release. Surgical hernirraphy, back fusion, left BKA. PREVIOUS FUNCTIONAL STATUS/SOCIAL/FAMILY SUPPORTS:: Warren lives in his own home in [place] with his , Yoko. He has one adult child who resides locally. 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 He is independent with his ADLs and transportation. CURRENT FUNCTIONAL STATUS:: Warren is sitting at the edge of his bed when CM visits this afternoon. He is engaged in conversation, makes good eye contact and is talkative. Pt is familiar to CM as he was a patient on 05/30 for a SBO. He reports moderate pain and has a NG tube in place. He is NPO and recieving IV fluids. Warren reports that there is a question of whether he will have surgery at [facility] tomorrow or transfer to [facility]. ADVANCE DIRECTIVES:: On file at [facility]. Has patient been provided with information about the portal?: No Did the patient sign up for the portal?: No CODE STATUS:: Full Code INSURANCE COVERAGE / FINANCIAL ISSUES:: Medicare, Financial Asst. 100. CURRENT HOME/COMMUNITY SERVICES/EQUIPMENT:: No current services. Pt utilizes a cane and walker for ambulation at home. PRIMARY CARE PHYSICIAN:: Yoko Esqueda. POTENTIAL DISCHARGE NEEDS:: Follow up appointment with primary care provider. PATIENT/FAMILY EDUCATION NEEDS:: Discharge education, limitations and follow up plan of care. Ask Me Three discussion. ANTICIPATED BARRIERS TO DISCHARGE:: No anticipated barriers to discharge. TRANSPORTATION:: Warren will transport via private vehicle with , Yoko. PLAN:: Question regarding transfer to [facility] or OR at [facility]. CM will continue to provide support to patient, family and care team regarding discharge planning and disposition.
[2018-07-01] MEDS: ACETAMINOPHEN 1,000 MG/100 ML BTL 400 MG IVPB ×2 (15:14→22:59)
[2018-07-01] MEDS: Normal Saline 1,000 ML 125 ML IV (20:57)
[2018-07-02] VITALS (12 sets, daily range): BP systolic 145–174; BP diastolic 80–96; PULSE 61–77; RESP 16–18; TEMP 36.7–37; O2SAT 97–100
[2018-07-02] MEDS: Ondansetron 4 MG/2 ML VIAL IVP (02:47)
[2018-07-02] MEDS: Ketorolac 15 MG/ML VIAL IVP ×3 (02:47→15:34)
[2018-07-02] MEDS: Normal Saline Flush 10 ML SYR IVP ×3 (02:48→15:33)
[2018-07-02] MEDS: Normal Saline 1,000 ML 125 ML IV ×2 (05:02→13:23)
--- NOTE | 2018-07-02 06:00 | DI.REPORT_ITS ---
SYMPTOM/DIAGNOSIS: F/U SBO/RETAINED CAPSULE (SEE CT SCAN) PA CHEST, FLAT AND UPRIGHT VIEWS OF THE ABDOMEN: A nasogastric tube has been advanced slightly now with the tip in the fundus of the stomach. The side hole is positioned in the lower esophagus. The lungs are clear. No free air is seen. There is contrast in the colon as well as bladder related to previous CT scan. No significant bowel dilatation is seen. IMPRESSION: No acute abnormality.
[2018-07-02 06:59] LABS: Abs Immature Grans 0.02 k/cumm (0.0-0.09); Absolute Basophil Count 0.02 k/cumm (0.0-0.2); Absolute Monocyte Count 0.52 k/cumm (0.11-0.7); Basophils % 0.3; Eosinophils % 1.7; HCT 31.2 % (40.0-50.0); HGB 9.2 g/dL (13.5-17.5); Immature Grans % 0.3; Lymphocytes % 18.2; Mean Corp. HGB Concentration 29.5 g/dL (32.0-36.0); Mean Corpuscular Hemoglobin 23.4 pg (27.0-33.0); Mean Corpuscular Volume 79.4 fL (80-95); Mean Platelet Volume 11.8 fL (8.0-11.0); Monocytes % 8.6; Neutrophils % 70.9; Platelet Count 245 x1000/uL (130-400); RBC 3.93 m/cumm (4.50-6.00); RBC Distribution Width 19.8 % (11.8-14.1); White Blood Cell Count 6.06 k/cumm (4.4-10.8)
[2018-07-02 07:13] LABS: Anion Gap 3.9 mmol/L (3-11); BUN 16 mg/dL (7-18); CO2 26.1 mmol/L (21.0-32.0); CREATININE 0.92 mg/dL (0.70-1.30); Chloride 109 mmol/L (98-107); Glucose 101 mg/dL (70-100); Potassium 4.2 mmol/L (3.5-5.1); Sodium 139 mmol/L (136-145)
--- NOTE | 2018-07-02 07:18 | DI.VRAD_ITS ---
EXAM: XR Abdomen 2 Views with XR Chest 1 View EXAM DATE/TIME: 07/02/2018 12:00 AM CLINICAL HISTORY: 68 years old, male; Pain; Other: Anemia; Patient HX: F/u sbo - retained capsult see CT scan. Anemia psbo no surgery; Additional info: Must be done before 0630 so plan for possible surgery. TECHNIQUE: XR of the abdomen (2 views) with XR chest (1 view). COMPARISON: CR - CHEST 2 VIEWS PA,LAT 2018-06-24 17:48 FINDINGS: Tubes, lines and devices: Termination of feeding tube in the proximal stomach. Lungs: Mild interstitial prominence. Pleural space: No significant pleural effusion. Heart/Mediastinum: Borderline cardiomegaly. Gastrointestinal tract: Prominent stool without significant bowel dilatation. Enteric contrast in the right colon. Organs: Residual contrast in the bladder. Bones/joints: Postoperative change in the lumbar spine. Soft tissues: Surgical clips overlying the right thyroid. IMPRESSION: 1. Prominent stool without significant bowel dilatation. 2. No acute airspace or pleural disease. Dictated and Authenticated by: Rod Bermudez MD. Ordering:IZABEL GARNICA MD
[2018-07-02 07:34] LABS: Anisocytosis 2+; Diff Comment RBC Morph Reviewed
[2018-07-02 07:35] LABS: Hypochromasia 2+; Microcytosis 2+
[2018-07-02] MEDS: Calcium Carbonate *TUMS* 500 MG CHEW PO (07:37)
--- NOTE | 2018-07-02 08:19 | PDOC.PROG ---
Date of Service: 07/02/18 Time of Service: 07:00 Assessment/Plan - Assessment/Plan (1) Small bowel obstruction Assessment: Doing well. I think he is opening up Plan: XRAY showes no bowel dilatation but a lot of stool Will Clamp NG and if residuals are low then will remove and start patient on clears. (2) Anemia Assessment: Continued Anemia. S/P [place]?EGD and capsule endoscopy. NO bleeding source on [place]/EGD. Do not know results of Capsule endoscopy. Plan: Watch and follow up with PCP as outpatient History of Present Illness - History of Present Illness Chief Complaint: PAD #1 History of Present Illness: Doing OK this am. Complains of heart burn and the NG tube hurting. No abdominal pain. had some flatus last night. ? BM last night XRAY this am showes no bowel dilatation and they do not see the capsule. Review of Systems - Medications/Allergies Allergies/Adverse Reactions: Allergies Allergy/AdvReac Type Severity Reaction Status Date / Time Influenza Virus Vaccines Allergy Severe ? allergic Unverified 07/01/18 06:15 reaction to flu vaccine pravastatin AdvReac Intermediate Muscle and Unverified 07/01/18 06:15 joint pain Medications: Current Medications Albuterol Sulfate (Ventolin Hfa) 2 puff IH QID PRN PRN Benzocaine/Menthol (Cepacol Sugar Free) 1 each SUC Q6H PRN PRN Last Admin: 07/01/18 19:22 Dose: 1 each Calcium Carbonate (Tums) 500 mg PO QID PRN PRN Enoxaparin Sodium (Lovenox) 30 mg SC Q24H [facility] Last Admin: 07/01/18 12:04 Dose: 30 mg Fluticasone Propionate (Flonase) 0 gm NS DAILY [facility] Last Admin: 07/02/18 07:39 Dose: Not Given Sodium Chloride (Saline 1000ml Bag) 1,000 mls @ 125 mls/hr IV INFUSION [facility] Last Admin: 07/02/18 05:02 Dose: 125 mls/hr Acetaminophen (Ofirmev) 1,000 mg in 100 mls @ 400 mls/hr IVPB Q6H PRN PRN Last Admin: 07/01/18 22:59 Dose: 400 mls/hr IV Miscellaneous Supplies () 1 each IV DIRECTED [facility] Ketorolac Tromethamine (Toradol Injection) 15 mg IVP Q6H PRN PRN Stop: 07/06/18 11:04 Last Admin: 07/02/18 08:00 Dose: 15 mg Metoprolol Tartrate (Lopressor Injection) 5 mg IVP Q6H PRN PRN Ondansetron HCl (Zofran Injection) 0 mg IVP Q4H PRN PRN Last Admin: 07/02/18 02:47 Dose: 4 mg Pantoprazole Sodium (Protonix Injection) 40 mg IVP Q24H [facility] Last Admin: 07/01/18 12:03 Dose: 40 mg Sodium Chloride (Saline Flush 10 Ml Syringe) 0 ml IVP PRN PRN Last Admin: 07/02/18 02:48 Dose: 10 ml Objective - Exam Vitals and I&O: Vital Signs Temp 36.7 C 07/02/18 08:00 Pulse 77 07/02/18 08:00 Resp 18 07/02/18 08:00 BP 154/80 07/02/18 08:00 Pulse Ox 97 07/02/18 08:00 Intake & Output 07/01/18 07/01/18 07/02/18 11:59 23:59 11:59 Intake Total 1048 1046 Output Total 100 450 500 Balance -100 598 546 Weight 90.718 kg Intake: IV 1048 1036 Oral 10 Output: Gastric Drainage 100 300 Right Nare 300 Urine 450 200 Other: Urine Color Yellow Urine Appearance Clear Clear Comment pt voided independently in urinal. Voiding Methods Urinal Urinal General: Alert, Oriented x3, Cooperative, No acute distress Lungs: Clear to auscultation Cardiovascular: Regular rate Abdomen: Normal bowel sounds, Soft - Results Results: Laboratory Results WBC 6.06 k/cumm (4.4-10.8) D 07/02/18 06:25 RBC 3.93 m/cumm (4.50-6.00) L 07/02/18 06:25 Hgb 9.2 g/dL (13.5-17.5) L D 07/02/18 06:25 Hct 31.2 % (40.0-50.0) L 07/02/18 06:25 MCV 79.4 fL (80-95) L 07/02/18 06:25 MCH 23.4 pg (27.0-33.0) L 07/02/18 06:25 MCHC 29.5 g/dL (32.0-36.0) L 07/02/18 06:25 RDW 19.8 % (11.8-14.1) H 07/02/18 06:25 Plt Count 245 x1000/uL (130-400) 07/02/18 06:25 MPV 11.8 fL (8.0-11.0) H 07/02/18 06:25 Immature Gran % 0.3 07/02/18 06:25 Neutrophils % 70.9 07/02/18 06:25 Lymphocytes % 18.2 07/02/18 06:25 Monocytes % 8.6 07/02/18 06:25 Eosinophils % 1.7 07/02/18 06:25 Basophils % 0.3 07/02/18 06:25 Absolute Neutrophils 4.30 k/cumm (1.2-6.7) 07/02/18 06:25 Absolute Lymphocytes 1.10 k/cumm (1.2-3.4) L 07/02/18 06:25 Absolute Monocytes 0.52 k/cumm (0.11-0.7) 07/02/18 06:25 Absolute Eosinophils 0.10 k/cumm (0.0-0.7) 07/02/18 06:25 Absolute Basophils 0.02 k/cumm (0.0-0.2) 07/02/18 06:25 Differential Comment Rbc morph reviewed 07/02/18 06:25 RBC Morphology See below 07/02/18 06:25 Hypochromasia 2+ 07/02/18 06:25 Anisocytosis 2+ 07/02/18 06:25 Microcytosis 2+ 07/02/18 06:25 Sodium 139 mmol/L (136-145) 07/02/18 06:25 Potassium 4.2 mmol/L (3.5-5.1) 07/02/18 06:25 Chloride 109 mmol/L (98-107) H 07/02/18 06:25 Carbon Dioxide 26.1 mmol/L (21.0-32.0) 07/02/18 06:25 Anion Gap 3.9 mmol/L (3-11) 07/02/18 06:25 BUN 16 mg/dL (7-18) 07/02/18 06:25 Creatinine 0.92 mg/dL (0.70-1.30) 07/02/18 06:25 Estimated GFR/1.73 m2 >= 60.00 (mL/min/1.73m2) 07/02/18 06:25 Glucose 101 mg/dL (70-100) H D 07/02/18 06:25 Calcium 8.0 mg/dL (8.5-10.1) L 07/02/18 06:25 Magnesium 2.0 mg/dL (1.8-2.4) 07/02/18 06:25 Total Bilirubin 0.3 mg/dL (0.2-1.0) 07/01/18 06:35 AST 26 U/L (15-37) 07/01/18 06:35 ALT 28 U/L (12-78) 07/01/18 06:35 Alkaline Phosphatase 89 U/L (46-116) 07/01/18 06:35 Troponin I < 0.02 ng/mL (0.00-0.06) 07/01/18 06:35 Total Protein 8.0 g/dL (6.4-8.2) 07/01/18 06:35 Albumin 4.1 g/dL (3.4-5.0) 07/01/18 06:35 Lipase 140 U/L (73-393) 07/01/18 06:35 Urine Color Yellow (Yellow) 07/01/18 08:32 Urine Clarity Clear 07/01/18 08:32 Urine pH 5.5 (5-8) 07/01/18 08:32 Ur Specific [place] 1.020 (1.005-1.025) 07/01/18 08:32 Urine Protein Negative mg/dL (Negative) 07/01/18 08:32 Urine Ketones Negative mg/dL (Negative) 07/01/18 08:32 Urine Blood Negative (Negative) 07/01/18 08:32 Urine Nitrite Negative (Negative) 07/01/18 08:32 Urine Bilirubin Negative (Negative) 07/01/18 08:32 Urine Urobilinogen 0.2 EU/dL (Up TO 0.2) 07/01/18 08:32 Ur Leukocyte Esterase Negative (Negative) 07/01/18 08:32 Urine Glucose Negative mg/dL (Negative) 07/01/18 08:32
--- NOTE | 2018-07-02 08:22 | PDOC.PROG_ITS ---
Date of Service: 07/02/18 Time of Service: 07:00 Assessment/Plan - Assessment/Plan (1) Small bowel obstruction Assessment: Doing well. I think he is opening up Plan: XRAY showes no bowel dilatation but a lot of stool Will Clamp NG and if residuals are low then will remove and start patient on clears. (2) Anemia Assessment: Continued Anemia. S/P [place]?EGD and capsule endoscopy. NO bleeding source on [place]/EGD. Do not know results of Capsule endoscopy. Plan: Watch and follow up with PCP as outpatient History of Present Illness - History of Present Illness Chief Complaint: PAD #1 History of Present Illness: Doing OK this am. Complains of heart burn and the NG tube hurting. No abdominal pain. had some flatus last night. ? BM last night XRAY this am showes no bowel dilatation and they do not see the capsule. Review of Systems - Medications/Allergies Allergies/Adverse Reactions: Allergies Allergy/AdvReac Type Severity Reaction Status Date / Time Influenza Virus Vaccines Allergy Severe ? allergic Unverified 07/01/18 06:15 reaction to flu vaccine pravastatin AdvReac Intermediate Muscle and Unverified 07/01/18 06:15 joint pain Medications: Current Medications Albuterol Sulfate (Ventolin Hfa) 2 puff IH QID PRN PRN Benzocaine/Menthol (Cepacol Sugar Free) 1 each SUC Q6H PRN PRN Last Admin: 07/01/18 19:22 Dose: 1 each Calcium Carbonate (Tums) 500 mg PO QID PRN PRN Enoxaparin Sodium (Lovenox) 30 mg SC Q24H [facility] Last Admin: 07/01/18 12:04 Dose: 30 mg Fluticasone Propionate (Flonase) 0 gm NS DAILY [facility] Last Admin: 07/02/18 07:39 Dose: Not Given Sodium Chloride (Saline 1000ml Bag) 1,000 mls @ 125 mls/hr IV INFUSION [facility] Last Admin: 07/02/18 05:02 Dose: 125 mls/hr Acetaminophen (Ofirmev) 1,000 mg in 100 mls @ 400 mls/hr IVPB Q6H PRN PRN Last Admin: 07/01/18 22:59 Dose: 400 mls/hr IV Miscellaneous Supplies () 1 each IV DIRECTED [facility] Ketorolac Tromethamine (Toradol Injection) 15 mg IVP Q6H PRN PRN Stop: 07/06/18 11:04 Last Admin: 07/02/18 08:00 Dose: 15 mg Metoprolol Tartrate (Lopressor Injection) 5 mg IVP Q6H PRN PRN Ondansetron HCl (Zofran Injection) 0 mg IVP Q4H PRN PRN Last Admin: 07/02/18 02:47 Dose: 4 mg Pantoprazole Sodium (Protonix Injection) 40 mg IVP Q24H [facility] Last Admin: 07/01/18 12:03 Dose: 40 mg Sodium Chloride (Saline Flush 10 Ml Syringe) 0 ml IVP PRN PRN Last Admin: 07/02/18 02:48 Dose: 10 ml Objective - Exam Vitals and I&O: Vital Signs Temp 36.7 C 07/02/18 08:00 Pulse 77 07/02/18 08:00 Resp 18 07/02/18 08:00 BP 154/80 07/02/18 08:00 Pulse Ox 97 07/02/18 08:00 Intake & Output 07/01/18 07/01/18 07/02/18 11:59 23:59 11:59 Intake Total 1048 1046 Output Total 100 450 500 Balance -100 598 546 Weight 90.718 kg Intake: IV 1048 1036 Oral 10 Output: Gastric Drainage 100 300 Right Nare 300 Urine 450 200 Other: Urine Color Yellow Urine Appearance Clear Clear Comment pt voided independently in urinal. Voiding Methods Urinal Urinal General: Alert, Oriented x3, Cooperative, No acute distress Lungs: Clear to auscultation Cardiovascular: Regular rate Abdomen: Normal bowel sounds, Soft - Results Results: Laboratory Results WBC 6.06 k/cumm (4.4-10.8) D 07/02/18 06:25 RBC 3.93 m/cumm (4.50-6.00) L 07/02/18 06:25 Hgb 9.2 g/dL (13.5-17.5) L D 07/02/18 06:25 Hct 31.2 % (40.0-50.0) L 07/02/18 06:25 MCV 79.4 fL (80-95) L 07/02/18 06:25 MCH 23.4 pg (27.0-33.0) L 07/02/18 06:25 MCHC 29.5 g/dL (32.0-36.0) L 07/02/18 06:25 RDW 19.8 % (11.8-14.1) H 07/02/18 06:25 Plt Count 245 x1000/uL (130-400) 07/02/18 06:25 MPV 11.8 fL (8.0-11.0) H 07/02/18 06:25 Immature Gran % 0.3 07/02/18 06:25 Neutrophils % 70.9 07/02/18 06:25 Lymphocytes % 18.2 07/02/18 06:25 Monocytes % 8.6 07/02/18 06:25 Eosinophils % 1.7 07/02/18 06:25 Basophils % 0.3 07/02/18 06:25 Absolute Neutrophils 4.30 k/cumm (1.2-6.7) 07/02/18 06:25 Absolute Lymphocytes 1.10 k/cumm (1.2-3.4) L 07/02/18 06:25 Absolute Monocytes 0.52 k/cumm (0.11-0.7) 07/02/18 06:25 Absolute Eosinophils 0.10 k/cumm (0.0-0.7) 07/02/18 06:25 Absolute Basophils 0.02 k/cumm (0.0-0.2) 07/02/18 06:25 Differential Comment Rbc morph reviewed 07/02/18 06:25 RBC Morphology See below 07/02/18 06:25 Hypochromasia 2+ 07/02/18 06:25 Anisocytosis 2+ 07/02/18 06:25 Microcytosis 2+ 07/02/18 06:25 Sodium 139 mmol/L (136-145) 07/02/18 06:25 Potassium 4.2 mmol/L (3.5-5.1) 07/02/18 06:25 Chloride 109 mmol/L (98-107) H 07/02/18 06:25 Carbon Dioxide 26.1 mmol/L (21.0-32.0) 07/02/18 06:25 Anion Gap 3.9 mmol/L (3-11) 07/02/18 06:25 BUN 16 mg/dL (7-18) 07/02/18 06:25 Creatinine 0.92 mg/dL (0.70-1.30) 07/02/18 06:25 Estimated GFR/1.73 m2 >= 60.00 (mL/min/1.73m2) 07/02/18 06:25 Glucose 101 mg/dL (70-100) H D 07/02/18 06:25 Calcium 8.0 mg/dL (8.5-10.1) L 07/02/18 06:25 Magnesium 2.0 mg/dL (1.8-2.4) 07/02/18 06:25 Total Bilirubin 0.3 mg/dL (0.2-1.0) 07/01/18 06:35 AST 26 U/L (15-37) 07/01/18 06:35 ALT 28 U/L (12-78) 07/01/18 06:35 Alkaline Phosphatase 89 U/L (46-116) 07/01/18 06:35 Troponin I < 0.02 ng/mL (0.00-0.06) 07/01/18 06:35 Total Protein 8.0 g/dL (6.4-8.2) 07/01/18 06:35 Albumin 4.1 g/dL (3.4-5.0) 07/01/18 06:35 Lipase 140 U/L (73-393) 07/01/18 06:35 Urine Color Yellow (Yellow) 07/01/18 08:32 Urine Clarity Clear 07/01/18 08:32 Urine pH 5.5 (5-8) 07/01/18 08:32 Ur Specific [place] 1.020 (1.005-1.025) 07/01/18 08:32 Urine Protein Negative mg/dL (Negative) 07/01/18 08:32 Urine Ketones Negative mg/dL (Negative) 07/01/18 08:32 Urine Blood Negative (Negative) 07/01/18 08:32 Urine Nitrite Negative (Negative) 07/01/18 08:32 Urine Bilirubin Negative (Negative) 07/01/18 08:32 Urine Urobilinogen 0.2 EU/dL (Up TO 0.2) 07/01/18 08:32 Ur Leukocyte Esterase Negative (Negative) 07/01/18 08:32 Urine Glucose Negative mg/dL (Negative) 07/01/18 08:32
[2018-07-02] MEDS: ACETAMINOPHEN 1,000 MG/100 ML BTL 400 MG IVPB (09:02)
[2018-07-02] MEDS: Metoprolol 5 MG/5 ML VIAL IVP (09:17)
--- NOTE | 2018-07-02 10:08 | PDOC.CMPRO ---
Date of Service: 07/02/18 Time of Service: 10:09 Care Management Progress Note S/O: Warren was sitting at the edge of his bed when CM visited this morning. He is engaged in conversation and is talkative. Warren reports that he is feeling a little better today but wants the NG tube out. Plan is to clamp the tube this morning and discontinue later today. Warren remains NPO and will be started on clears today. A: 68 year old male admitted with small bowel obstruction and retained capsule. P: Warren will discharge home when medically ready per MD. Anticipate pt will discharge with no services and follow up with his PCP and plan of care. Warren will transport via private vehicle with , [facility]. CM will continue to provide support to patient, family and careteam regarding discharge planning and disposition.
[2018-07-02] MEDS: Enoxaparin 30 MG/0.3 ML SYR SC (11:24)
[2018-07-02] MEDS: Pantoprazole 40 MG VIAL IVP (11:24)
[2018-07-02] MEDS: Lisinopril 20 MG TAB PO (11:31)
--- NOTE | 2018-07-02 15:06 | PROG.BLANK ---
Progress Note PAD #1 S: Doing well. Passed some flatus and had a BM. No pain. No N/V O: VSS AFeb ABdo: soft, ND, NTTP, good BS XRAY- shows stool in the colon. No small bowel dilatation. Capsule is no longer visible A: SBO and retention of capsule Anemia P: Clear liquids, advance as tolerated Home meds restarted Repeat H/H tomorrow D/C home when tolerating a diet
--- NOTE | 2018-07-02 15:37 | PHARADMIT ---
Admission Pharmacy Clinical Review small bowel obstruction/ retained capsule Code Status Full Code Current Weight 90.718 kg Renally Cleared and Narrow Therapeutic Index Meds Crcl ~77.00 mL/min current meds okay QTc Value / Action Taken QTc 507 has ondansetron and albuterol ordered PRN BP Control, Fever BP 165/89 afebrile Electrolytes reviewed Cl 109 DVT Prophylaxis enoxaparin Opiate Usage / Scheduled Bowel Regimen Ordered prn/prn Plt/SCr for Heparin / Enoxaparin plt 245 SCr 0.92 INR for Warfarin n/a H/H stable, WBC/Bands h/h 9.2/31.2 WBC 6.06 Antibiotic appropriateness n/a Cultures and Sensitivities n/a Surgical ABX d/c within 24 hr n/a DM control / Insulin Dosing BG 101 n/a Heart Failure (Check EF%) (DEISI's, B-Block, Diuretics) lisinopril, metoprolol IV to PO Switch n/a Home Meds Reviewed yes Home Meds Not Ordered esomeprazole (has pantoprazole ordered) Comments
[2018-07-02] MEDS: Acetaminophen 325 MG TAB 650 MG PO (21:09)
[2018-07-02] MEDS: Senna TAB 1 TAB PO (21:09)
[2018-07-02] MEDS: Metoprolol CR 50 MG TABCR PO (21:09)
[2018-07-02] MEDS: Melatonin 3 MG TAB PO (21:09)
[2018-07-03 02:27] VITALS: BP 158/65; PULSE 58; RESP 18; TEMP 36.7; O2SAT 94
--- NOTE | 2018-07-03 07:01 | PDOC.PROG ---
Assessment/Plan - Assessment/Plan (1) Small bowel obstruction Assessment: resolved ? stricture Plan: Advance diet to soft. if he tolerates that then will D/C home (2) Anemia Assessment: recheck today H/H pending if decreased again then will talk to PCP about possible Hematology consult History of Present Illness - History of Present Illness Chief Complaint: PAD #2 History of Present Illness: Doing well. No complaints. Tolerated a clear liquid diet. Passing flatus and having soft BM's Review of Systems - Review of Systems Constitutional: denies: Fever, Chills, Sweats, Weakness, Malaise, Other - Medications/Allergies Allergies/Adverse Reactions: Allergies Allergy/AdvReac Type Severity Reaction Status Date / Time Influenza Virus Vaccines Allergy Severe ? allergic Unverified 07/01/18 06:15 reaction to flu vaccine pravastatin AdvReac Intermediate Muscle and Unverified 07/01/18 06:15 joint pain Medications: Current Medications Acetaminophen (Tylenol) 650 mg PO Q6H PRN PRN Last Admin: 07/02/18 21:09 Dose: 650 mg Acetaminophen/Codeine Phosphate (Tylenol W/Codeine #3 Tablet) 1 tab PO Q6H PRN PRN Albuterol Sulfate (Ventolin Hfa) 2 puff IH QID PRN PRN Calcium Carbonate (Tums) 500 mg PO QID PRN PRN Docusate Sodium (Colace) 100 mg PO BID PRN PRN Enoxaparin Sodium (Lovenox) 30 mg SC Q24H [facility] Last Admin: 07/02/18 11:24 Dose: 30 mg Fluticasone Propionate (Flonase) 0 gm NS DAILY [facility] Last Admin: 07/02/18 07:39 Dose: Not Given IV Miscellaneous Supplies () 1 each IV DIRECTED [facility] Ketorolac Tromethamine (Toradol Injection) 15 mg IVP Q6H PRN PRN Stop: 07/06/18 11:04 Last Admin: 07/02/18 15:34 Dose: 15 mg Lisinopril (Prinivil) 20 mg PO DAILY [facility] Last Admin: 07/02/18 11:31 Dose: 20 mg Melatonin () 3 mg PO [facility] Last Admin: 07/02/18 21:09 Dose: 3 mg Metoprolol Succinate (Toprol Xl) 50 mg PO [facility] Last Admin: 07/02/18 21:09 Dose: 50 mg Ondansetron HCl (Zofran Injection) 0 mg IVP Q4H PRN PRN Last Admin: 07/02/18 02:47 Dose: 4 mg Pantoprazole Sodium (Protonix Injection) 40 mg IVP Q24H [facility] Last Admin: 07/02/18 11:24 Dose: 40 mg Polyethylene Glycol (Miralax) 17 gm PO DAILY [facility] Sennosides (Senokot) 1 tab PO HS [facility] Last Admin: 07/02/18 21:09 Dose: 1 tab Sodium Chloride (Saline Flush 10 Ml Syringe) 0 ml IVP PRN PRN Last Admin: 07/02/18 15:33 Dose: 10 ml Objective - Exam Vitals and I&O: Vital Signs Temp 36.7 C 07/03/18 02:27 Pulse 58 L 07/03/18 02:27 Resp 18 07/03/18 02:27 BP 158/65 07/03/18 02:27 Pulse Ox 94 L 07/03/18 02:27 Intake & Output 07/02/18 07/02/18 07/03/18 11:59 23:59 11:59 Intake Total 1046 2318 Output Total 1503 250 750 Balance -457 2068 -750 Intake: IV 1036 1028 Oral 10 1290 Output: Gastric Drainage 303 Right Nare 303 Urine 1200 250 750 Other: Urine Color Yellow Yellow Yellow Urine Appearance Clear Clear Clear Urine Odor None Stool Size Small Stool Characteristics Soft Brown Voiding Methods Urinal Bedside Commode Urinal General: Alert, Oriented x3, Cooperative, No acute distress Lungs: Clear to auscultation Cardiovascular: Regular rate Abdomen: Normal bowel sounds, Soft - Results Results: Laboratory Results WBC 6.06 k/cumm (4.4-10.8) D 07/02/18 06:25 RBC 3.93 m/cumm (4.50-6.00) L 07/02/18 06:25 Hgb 9.2 g/dL (13.5-17.5) L D 07/02/18 06:25 Hct 31.2 % (40.0-50.0) L 07/02/18 06:25 MCV 79.4 fL (80-95) L 07/02/18 06:25 MCH 23.4 pg (27.0-33.0) L 07/02/18 06:25 MCHC 29.5 g/dL (32.0-36.0) L 07/02/18 06:25 RDW 19.8 % (11.8-14.1) H 07/02/18 06:25 Plt Count 245 x1000/uL (130-400) 07/02/18 06:25 MPV 11.8 fL (8.0-11.0) H 07/02/18 06:25 Immature Gran % 0.3 07/02/18 06:25 Neutrophils % 70.9 07/02/18 06:25 Lymphocytes % 18.2 07/02/18 06:25 Monocytes % 8.6 07/02/18 06:25 Eosinophils % 1.7 07/02/18 06:25 Basophils % 0.3 07/02/18 06:25 Absolute Neutrophils 4.30 k/cumm (1.2-6.7) 07/02/18 06:25 Absolute Lymphocytes 1.10 k/cumm (1.2-3.4) L 07/02/18 06:25 Absolute Monocytes 0.52 k/cumm (0.11-0.7) 07/02/18 06:25 Absolute Eosinophils 0.10 k/cumm (0.0-0.7) 07/02/18 06:25 Absolute Basophils 0.02 k/cumm (0.0-0.2) 07/02/18 06:25 Differential Comment Rbc morph reviewed 07/02/18 06:25 RBC Morphology See below 07/02/18 06:25 Hypochromasia 2+ 07/02/18 06:25 Anisocytosis 2+ 07/02/18 06:25 Microcytosis 2+ 07/02/18 06:25 Sodium 139 mmol/L (136-145) 07/02/18 06:25 Potassium 4.2 mmol/L (3.5-5.1) 07/02/18 06:25 Chloride 109 mmol/L (98-107) H 07/02/18 06:25 Carbon Dioxide 26.1 mmol/L (21.0-32.0) 07/02/18 06:25 Anion Gap 3.9 mmol/L (3-11) 07/02/18 06:25 BUN 16 mg/dL (7-18) 07/02/18 06:25 Creatinine 0.92 mg/dL (0.70-1.30) 07/02/18 06:25 Estimated GFR/1.73 m2 >= 60.00 (mL/min/1.73m2) 07/02/18 06:25 Glucose 101 mg/dL (70-100) H D 07/02/18 06:25 Calcium 8.0 mg/dL (8.5-10.1) L 07/02/18 06:25 Magnesium 2.0 mg/dL (1.8-2.4) 07/02/18 06:25 Total Bilirubin 0.3 mg/dL (0.2-1.0) 07/01/18 06:35 AST 26 U/L (15-37) 07/01/18 06:35 ALT 28 U/L (12-78) 07/01/18 06:35 Alkaline Phosphatase 89 U/L (46-116) 07/01/18 06:35 Troponin I < 0.02 ng/mL (0.00-0.06) 07/01/18 06:35 Total Protein 8.0 g/dL (6.4-8.2) 07/01/18 06:35 Albumin 4.1 g/dL (3.4-5.0) 07/01/18 06:35 Lipase 140 U/L (73-393) 07/01/18 06:35 Urine Color Yellow (Yellow) 07/01/18 08:32 Urine Clarity Clear 07/01/18 08:32 Urine pH 5.5 (5-8) 07/01/18 08:32 Ur Specific [place] 1.020 (1.005-1.025) 07/01/18 08:32 Urine Protein Negative mg/dL (Negative) 07/01/18 08:32 Urine Ketones Negative mg/dL (Negative) 07/01/18 08:32 Urine Blood Negative (Negative) 07/01/18 08:32 Urine Nitrite Negative (Negative) 07/01/18 08:32 Urine Bilirubin Negative (Negative) 07/01/18 08:32 Urine Urobilinogen 0.2 EU/dL (Up TO 0.2) 07/01/18 08:32 Ur Leukocyte Esterase Negative (Negative) 07/01/18 08:32 Urine Glucose Negative mg/dL (Negative) 07/01/18 08:32
--- NOTE | 2018-07-03 07:04 | PDOC.PROG_ITS ---
Assessment/Plan - Assessment/Plan (1) Small bowel obstruction Assessment: resolved ? stricture Plan: Advance diet to soft. if he tolerates that then will D/C home (2) Anemia Assessment: recheck today H/H pending if decreased again then will talk to PCP about possible Hematology consult History of Present Illness - History of Present Illness Chief Complaint: PAD #2 History of Present Illness: Doing well. No complaints. Tolerated a clear liquid diet. Passing flatus and having soft BM's Review of Systems - Review of Systems Constitutional: denies: Fever, Chills, Sweats, Weakness, Malaise, Other - Medications/Allergies Allergies/Adverse Reactions: Allergies Allergy/AdvReac Type Severity Reaction Status Date / Time Influenza Virus Vaccines Allergy Severe ? allergic Unverified 07/01/18 06:15 reaction to flu vaccine pravastatin AdvReac Intermediate Muscle and Unverified 07/01/18 06:15 joint pain Medications: Current Medications Acetaminophen (Tylenol) 650 mg PO Q6H PRN PRN Last Admin: 07/02/18 21:09 Dose: 650 mg Acetaminophen/Codeine Phosphate (Tylenol W/Codeine #3 Tablet) 1 tab PO Q6H PRN PRN Albuterol Sulfate (Ventolin Hfa) 2 puff IH QID PRN PRN Calcium Carbonate (Tums) 500 mg PO QID PRN PRN Docusate Sodium (Colace) 100 mg PO BID PRN PRN Enoxaparin Sodium (Lovenox) 30 mg SC Q24H [facility] Last Admin: 07/02/18 11:24 Dose: 30 mg Fluticasone Propionate (Flonase) 0 gm NS DAILY [facility] Last Admin: 07/02/18 07:39 Dose: Not Given IV Miscellaneous Supplies () 1 each IV DIRECTED [facility] Ketorolac Tromethamine (Toradol Injection) 15 mg IVP Q6H PRN PRN Stop: 07/06/18 11:04 Last Admin: 07/02/18 15:34 Dose: 15 mg Lisinopril (Prinivil) 20 mg PO DAILY [facility] Last Admin: 07/02/18 11:31 Dose: 20 mg Melatonin () 3 mg PO [facility] Last Admin: 07/02/18 21:09 Dose: 3 mg Metoprolol Succinate (Toprol Xl) 50 mg PO [facility] Last Admin: 07/02/18 21:09 Dose: 50 mg Ondansetron HCl (Zofran Injection) 0 mg IVP Q4H PRN PRN Last Admin: 07/02/18 02:47 Dose: 4 mg Pantoprazole Sodium (Protonix Injection) 40 mg IVP Q24H [facility] Last Admin: 07/02/18 11:24 Dose: 40 mg Polyethylene Glycol (Miralax) 17 gm PO DAILY [facility] Sennosides (Senokot) 1 tab PO HS [facility] Last Admin: 07/02/18 21:09 Dose: 1 tab Sodium Chloride (Saline Flush 10 Ml Syringe) 0 ml IVP PRN PRN Last Admin: 07/02/18 15:33 Dose: 10 ml Objective - Exam Vitals and I&O: Vital Signs Temp 36.7 C 07/03/18 02:27 Pulse 58 L 07/03/18 02:27 Resp 18 07/03/18 02:27 BP 158/65 07/03/18 02:27 Pulse Ox 94 L 07/03/18 02:27 Intake & Output 07/02/18 07/02/18 07/03/18 11:59 23:59 11:59 Intake Total 1046 2318 Output Total 1503 250 750 Balance -457 2068 -750 Intake: IV 1036 1028 Oral 10 1290 Output: Gastric Drainage 303 Right Nare 303 Urine 1200 250 750 Other: Urine Color Yellow Yellow Yellow Urine Appearance Clear Clear Clear Urine Odor None Stool Size Small Stool Characteristics Soft Brown Voiding Methods Urinal Bedside Commode Urinal General: Alert, Oriented x3, Cooperative, No acute distress Lungs: Clear to auscultation Cardiovascular: Regular rate Abdomen: Normal bowel sounds, Soft - Results Results: Laboratory Results WBC 6.06 k/cumm (4.4-10.8) D 07/02/18 06:25 RBC 3.93 m/cumm (4.50-6.00) L 07/02/18 06:25 Hgb 9.2 g/dL (13.5-17.5) L D 07/02/18 06:25 Hct 31.2 % (40.0-50.0) L 07/02/18 06:25 MCV 79.4 fL (80-95) L 07/02/18 06:25 MCH 23.4 pg (27.0-33.0) L 07/02/18 06:25 MCHC 29.5 g/dL (32.0-36.0) L 07/02/18 06:25 RDW 19.8 % (11.8-14.1) H 07/02/18 06:25 Plt Count 245 x1000/uL (130-400) 07/02/18 06:25 MPV 11.8 fL (8.0-11.0) H 07/02/18 06:25 Immature Gran % 0.3 07/02/18 06:25 Neutrophils % 70.9 07/02/18 06:25 Lymphocytes % 18.2 07/02/18 06:25 Monocytes % 8.6 07/02/18 06:25 Eosinophils % 1.7 07/02/18 06:25 Basophils % 0.3 07/02/18 06:25 Absolute Neutrophils 4.30 k/cumm (1.2-6.7) 07/02/18 06:25 Absolute Lymphocytes 1.10 k/cumm (1.2-3.4) L 07/02/18 06:25 Absolute Monocytes 0.52 k/cumm (0.11-0.7) 07/02/18 06:25 Absolute Eosinophils 0.10 k/cumm (0.0-0.7) 07/02/18 06:25 Absolute Basophils 0.02 k/cumm (0.0-0.2) 07/02/18 06:25 Differential Comment Rbc morph reviewed 07/02/18 06:25 RBC Morphology See below 07/02/18 06:25 Hypochromasia 2+ 07/02/18 06:25 Anisocytosis 2+ 07/02/18 06:25 Microcytosis 2+ 07/02/18 06:25 Sodium 139 mmol/L (136-145) 07/02/18 06:25 Potassium 4.2 mmol/L (3.5-5.1) 07/02/18 06:25 Chloride 109 mmol/L (98-107) H 07/02/18 06:25 Carbon Dioxide 26.1 mmol/L (21.0-32.0) 07/02/18 06:25 Anion Gap 3.9 mmol/L (3-11) 07/02/18 06:25 BUN 16 mg/dL (7-18) 07/02/18 06:25 Creatinine 0.92 mg/dL (0.70-1.30) 07/02/18 06:25 Estimated GFR/1.73 m2 >= 60.00 (mL/min/1.73m2) 07/02/18 06:25 Glucose 101 mg/dL (70-100) H D 07/02/18 06:25 Calcium 8.0 mg/dL (8.5-10.1) L 07/02/18 06:25 Magnesium 2.0 mg/dL (1.8-2.4) 07/02/18 06:25 Total Bilirubin 0.3 mg/dL (0.2-1.0) 07/01/18 06:35 AST 26 U/L (15-37) 07/01/18 06:35 ALT 28 U/L (12-78) 07/01/18 06:35 Alkaline Phosphatase 89 U/L (46-116) 07/01/18 06:35 Troponin I < 0.02 ng/mL (0.00-0.06) 07/01/18 06:35 Total Protein 8.0 g/dL (6.4-8.2) 07/01/18 06:35 Albumin 4.1 g/dL (3.4-5.0) 07/01/18 06:35 Lipase 140 U/L (73-393) 07/01/18 06:35 Urine Color Yellow (Yellow) 07/01/18 08:32 Urine Clarity Clear 07/01/18 08:32 Urine pH 5.5 (5-8) 07/01/18 08:32 Ur Specific [place] 1.020 (1.005-1.025) 07/01/18 08:32 Urine Protein Negative mg/dL (Negative) 07/01/18 08:32 Urine Ketones Negative mg/dL (Negative) 07/01/18 08:32 Urine Blood Negative (Negative) 07/01/18 08:32 Urine Nitrite Negative (Negative) 07/01/18 08:32 Urine Bilirubin Negative (Negative) 07/01/18 08:32 Urine Urobilinogen 0.2 EU/dL (Up TO 0.2) 07/01/18 08:32 Ur Leukocyte Esterase Negative (Negative) 07/01/18 08:32 Urine Glucose Negative mg/dL (Negative) 07/01/18 08:32
[2018-07-03 07:11] LABS: HCT 31.6 % (40.0-50.0); HGB 9.7 g/dL (13.5-17.5)
--- NOTE | 2018-07-03 07:14 | DISCHARGE ---
Discharge - Discharge Orders Referrals: Yoko Esqueda MD [Primary Care Provider] - 07/11/18 1:20 pm - Discharge Plan Disposition: HOME Condition: Stable Diet:: As Tolerated Equipment/Supplies:: No Equipment Needed Activity:: Activity as Tolerated - Instructions Micromedex Instructions: Soft Diet (DC), Bowel Obstruction (DC) Additional Instructions: Follow up with your PCP Diet: soft diet. Stay away from insoluble fibers for 1 week. Activity as tolerated Medications: Continue Home medications. No new Medications
--- NOTE | 2018-07-03 07:15 | PDOC.DCSUM ---
Mr. Noel was admitted on 07/01/18 with a SBo and retained capsule from an endoscopic capsule endoscopy. GI was called at [facility] and they recommended NG decompression and bowel rest with follow up XRAY. he started passing flatus on 07/01 and had a BM. XRAY the next day showed no dilated small bowel and no capsule was identified. He was started on a clear liquid diet and advanced to a soft diet which he tolerated. patient is discharged home. he was noted to be anemic again although this may be partly due to the hydration we gave him. Follow up with your PCP Diet: Soft diet. Stay away from insoluble fibers for 1 week. Activity as tolerated Medications: Continue Home medications. No new Medications Discharge Summary - Revised Admission Date: 07/01/18 Discharge Date: 07/03/18 Diagnosis: Small bowel obstruction/ retained capsule/ Anemia Procedure: none Admitting Physician: Corey Miles MD
--- NOTE | 2018-07-03 07:20 | PDOC.DCSUM_ITS ---
Mr. Noel was admitted on 07/01/18 with a SBo and retained capsule from an endoscopic capsule endoscopy. GI was [place] [facility] [place] they recommended NG decompression and bowel rest with follow up XRAY. he started passing flatus on 07/01 and had a BM. XRAY the next day showed no dilated small bowel and no capsule was identified. He was started on a clear liquid diet and advanced to a soft diet which he tolerated. patient is discharged home. he was noted to be anemic again although this may be partly due to the hydration we gave him. Follow up with your PCP Diet: Soft diet. Stay away from insoluble fibers for 1 week. Activity as tolerated Medications: Continue Home medications. No new Medications Discharge Summary - Revised Admission Date: 07/01/18 Discharge Date: 07/03/18 Diagnosis: Small bowel obstruction/ retained capsule/ Anemia Procedure: none Admitting Physician: Corey Miles MD
[2018-07-03 07:30] VITALS: BP 149/70; PULSE 61; RESP 18; TEMP 36.6; O2SAT 98
[2018-07-03 07:40] VITALS: O2SAT 96
[2018-07-03] MEDS: Lisinopril 20 MG TAB PO (08:28)
[2018-07-03] MEDS: Polyethylene Glycol 3350 17 GM PACKET PO (08:28)
[2018-07-03 11:30] VITALS: BP 162/78; PULSE 72; RESP 18; TEMP 37; O2SAT 97
--- NOTE | 2018-07-03 12:04 | PDOC.CMDIS ---
Date of Service: 07/03/18 Time of Service: 12:04 LACE Index Scoring Tool - Questions: Length of Stay (in days): 3 Acuity (Admit via E.D.?): Yes E.D. Visits: 4 - Answers: Total Score: 10 Risk of Readmission: High Risk Care Management Discharge Reason for Hospitalization: Small bowel obstruction, retained capsule. Discharge Plan: Warren will discharge home when medically clear per MD. Anticipate pt will discharge with no services and follow up with PCP and plan of care. Warren will transport via private vehicle with his , Yoko. Patient/Family Education Needs: Review discharge instructions, any limitations and follow up plan of care. Ask Me Three discussion.
[2018-07-03] MEDS: Pantoprazole 40 MG VIAL IVP (13:17)
[2018-07-03] MEDS: Normal Saline Flush 10 ML SYR IVP (13:17)
[2018-07-03] MEDS: Enoxaparin 30 MG/0.3 ML SYR SC (13:17)
--- NOTE | 2018-07-03 14:04 | CHAPLAIN ---
Warren was pleasant and engaged in a conversation telling me he anticipates being discharged home soon.
--- NOTE | 2018-07-03 14:57 | NS.NUTBLAN_ITS ---
Instructed pt on fiber restricted nutrition therapy. Provided written materials with my contact information. Pt. and his verbalized a very good understanding of the information.
== END 2018-07-03 14:46 | disposition home or self-care (01) | DRG 394 ==
LOC: ER 12-12 14:19 → MS 05-02 15:01
PROVIDERS: Emergency Medicine; Admitting Provider Surgery; Emergency Provider Emergency Medicine; PCP Internal Medicine; Visit Provider Surgery
DX: T18.3XXA Foreign body in small intestine, initial encounter (principal); K91.30 Postprocedural intestinal obstruction, unspecified as to partial versus complete; I42.9 Cardiomyopathy, unspecified; I10 Essential (primary) hypertension; I25.10 Atherosclerotic heart disease of native coronary artery without angina pectoris; E78.5 Hyperlipidemia, unspecified; D50.9 Iron deficiency anemia, unspecified
CPT/HCPCS: 36415 ×3; 80048; 80053; 83735 ×2; 83690; 84484; 85025 ×2; 85014; 85018; 81003; 74022; 71045; 74177; 99284; 96374; 96361 ×2; 96375; 96376; 93010; J1650 ×3; J1885 ×5; J2270; J2405; Q9967; 93005; 99223; 99232; 99238; 99285; J0131; J3490

== ENCOUNTER → 2018-07-10 14:49 | Outpatient (CLI) | payer MEDICARE, SELFPAY ==
[2018-07-10 15:15] LABS: Abs Immature Grans 0.01 k/cumm (0.0-0.09); Absolute Basophil Count 0.06 k/cumm (0.0-0.2); Absolute Eosinophil Count 0.16 k/cumm (0.0-0.7); Absolute Lymphocyte Count 1.75 k/cumm (1.2-3.4); Absolute Monocyte Count 0.66 k/cumm (0.11-0.7); Absolute Neutrophil Count 4.49 k/cumm (1.2-6.7); Basophils % 0.8; Eosinophils % 2.2; HCT 33.7 % (40.0-50.0); HGB 10.3 g/dL (13.5-17.5); Immature Grans % 0.1; Lymphocytes % 24.5; Mean Corp. HGB Concentration 30.6 g/dL (32.0-36.0); Mean Corpuscular Hemoglobin 23.7 pg (27.0-33.0); Mean Corpuscular Volume 77.5 fL (80-95); Mean Platelet Volume 10.8 fL (8.0-11.0); Monocytes % 9.3; Neutrophils % 63.1; Platelet Count 278 x1000/uL (130-400); RBC 4.35 m/cumm (4.50-6.00); RBC Distribution Width 18.7 % (11.8-14.1); White Blood Cell Count 7.13 k/cumm (4.4-10.8)
== END ==
PROVIDERS: PCP Internal Medicine; Visit Provider Internal Medicine
DX: D64.9 Anemia, unspecified (principal)
CPT/HCPCS: 36415; 85025

== ENCOUNTER 2018-07-18 18:54 | Observation (INO) | payer MEDICARE, SELFPAY ==
[2018-07-18] VITALS (39 sets, daily range): BP systolic 112–154; BP diastolic 51–80; PULSE 84–119; RESP 10–24; TEMP 36.8; O2SAT 89–99
--- NOTE | 2018-07-18 20:00 | DI.CT_ITS ---
SYMPTOMS/DIAGNOSIS: KNOWN STRICTURES, H/O OBSTRUCTIONS, NOW BLOATING CT OF THE ABDOMEN AND PELVIS: Comparison is made with June,. Images were performed from the lung bases through the ischial tuberosities after IV and oral contrast. The oral contrast is seen within the stomach and proximal to mid small bowel. The stomach and proximal small bowel are unremarkable. There is wall thickening and dilatation of loops of small bowel in the lower abdomen toward the left. There are a few loops of decompressed small bowel. Again noted is a metallic device causing some streak artifact. It appears to be located somewhat more distally in the small bowel, to the left of midline at the level of the umbilicus. There is dilatation of the bowel distal to this metallic device, which shows feculent material. There is an apparent transition point just distal to this area. The colon again shows diverticulosis. There are no inflammatory changes. The prostate again appears small, which could be status post prostatectomy. The bladder is unremarkable. Degenerative and postsurgical changes are again noted in the spine. Stones are noted in the dependent portion of the gallbladder. There is stable mild biliary dilatation. The pancreas is mildly atrophic. The spleen, kidneys and adrenals are unremarkable. IMPRESSION: Continued bowel obstruction, now with increased dilatation and wall thickening in loops of bowel in the left lower quadrant.
[2018-07-18 20:17] LABS: Abs Immature Grans 0.01 k/cumm (0.0-0.09); Absolute Basophil Count 0.03 k/cumm (0.0-0.2); Absolute Eosinophil Count 0.07 k/cumm (0.0-0.7); Absolute Lymphocyte Count 0.91 k/cumm (1.2-3.4); Absolute Monocyte Count 0.57 k/cumm (0.11-0.7); Basophils % 0.3; Eosinophils % 0.7; HCT 36.4 % (40.0-50.0); HGB 11.2 g/dL (13.5-17.5); Immature Grans % 0.1; Lymphocytes % 9.6; Mean Corp. HGB Concentration 30.8 g/dL (32.0-36.0); Mean Corpuscular Hemoglobin 23.6 pg (27.0-33.0); Mean Corpuscular Volume 76.8 fL (80-95); Mean Platelet Volume 11.6 fL (8.0-11.0); Neutrophils % 83.3; Platelet Count 299 x1000/uL (130-400); RBC 4.74 m/cumm (4.50-6.00); RBC Distribution Width 18.9 % (11.8-14.1); White Blood Cell Count 9.49 k/cumm (4.4-10.8)
[2018-07-18] MEDS: MORPHine 10 MG/ML VIAL 4 MG IVP (20:18)
[2018-07-18] MEDS: Ondansetron 4 MG/2 ML VIAL IVP (20:19)
[2018-07-18] MEDS: Normal Saline 1,000 ML 500 ML IV (20:19)
[2018-07-18 20:37] LABS: Diff Comment RBC Morph Reviewed; Lipase 105 U/L (73-393); Magnesium 1.8 mg/dL (1.8-2.4)
[2018-07-18 20:38] LABS: Anisocytosis 1+
[2018-07-18 20:40] LABS: ALT 27 U/L (12-78); AST 24 U/L (15-37); Albumin 3.9 g/dL (3.4-5.0); Alkaline Phosphatase 88 U/L (46-116); Anion Gap 7.6 mmol/L (3-11); BUN 18 mg/dL (7-18); Bilirubin, Total 0.3 mg/dL (0.2-1.0); CO2 24.4 mmol/L (21.0-32.0); CREATININE 0.91 mg/dL (0.70-1.30); Calcium 8.5 mg/dL (8.5-10.1); Chloride 104 mmol/L (98-107); Glucose 140 mg/dL (70-100); Potassium 3.9 mmol/L (3.5-5.1); Sodium 136 mmol/L (136-145)
--- NOTE | 2018-07-18 21:04 | W.ED.GENAD ---
Discharge Plan Discharge Details Chief Complaint: Abd Prob Clinical Impression: Partial small bowel obstruction Primary Care Provider: Yoko Esqueda ED Provider: Fermín Johnson Disposition Patient Disposition: [facility] Condition: Stable Home Meds and New Rx's Prescriptions: No Action blood sugar diagnostic [OneTouch Ultra Test] 1 EACH strip 1 strip Miscellaneous DAILY Qty: 100 RF: 4 lancets [OneTouch Delica Lancets] 1 EACH misc 1 ea Intradermal DAILY Qty: 100 RF: 4 albuterol sulfate [Proventil HFA] 6.7 GM HFA aerosol inhaler 2 puff Inhalation QID PRNQty: 1 RF: 11 fluticasone 16 GM spray,suspension 2 spry NS DAILY Qty: 3 RF: 3 lisinopril 20 MG tablet 20 mg PO DAILY Qty: 90 RF: 3 Metoprolol Succinate 50 MG TAB.ER.24H 50 mg AD HS Qty: 90 RF: 3 esomeprazole magnesium [Nexium] 40 MG capsule,delayed release(DR/EC) 40 mg PO DAILY Qty: 90 RF: 3 acetaminophen-codeine [Tylenol-Codeine #4] 1 EACH tablet 1 ea PO TID Qty: 90 RF: 0 sennosides [Senokot] 1 TAB tablet 1 ea PO HS Qty: 30 RF: 0 polyethylene glycol 3350 17 GM powder in packet 17 gm PO DAILY Qty: 30 RF: 0 Medical Decision Making MDM Narrative Medical decision making narrative: This is a 68-year-old male with a past medical history of multiple obstructions, who presents today for abdominal pain distention which he states feels like his previous obstructions. The patient has a history of a stricture which he has been seen at [facility] for and has surgery scheduled within the next 5 days. He was seen at [facility] today, however after he left he had some mild abdominal pain, and distention which continued to worsen throughout the day. He has not had any vomiting or diarrhea or bowel movement since early this morning. He has had no flatus since this morning. Physical exam demonstrates minimally distended abdomen with hypertympanic bowel sounds. We will get a CT scan with contrast to evaluate for any new or acute pathology, he did have an x-ray earlier this morning at [facility] which showed no signs of severe obstruction per the patient. We will control the patient's pain, give Zofran. 12:06 AM Laboratory workup has returned and is relatively benign. No significant potassium or severe electrolyte abnormality. No significant leukocytosis. The patient's pain is improved with morphine and Dilaudid as well as Zofran. CT scans have returned there is evidence per virtual radiology of a density that is identified in the lumen of the lower jejunal small intestinal tract in the left lower quadrant, this could possibly represent the capsular endoscopy. There is also mild mucosal wall edematous thickening and fluid-filled slightly dilated loops of small intestine are seen proximally this density which may indicate partial clinical obstruction. There is concern for mechanical obstruction with this secondary to this patient's stricture, I did contact [facility] and discussed the case with him, and they state that since the patient does not require immediate surgery that they do not have room for transfer. I did contact Dr. Akins and discussed the case with him, he agrees that the patient requires a NG tube, for his SBO. He is agreed to accept the patient for admission. NG tube will be placed. I have extensively reviewed the treatment plan with the patient. I have addressed all patient concerns at this time. I have also discussed the plan with the admitting physician and they agree with the current assessment and plan and have agreed to assume responsibility for the patient. All parties demonstrate verbal understanding and agreement with our assessment and plan at this time. Lab Data Lab Results 07/18/18 07/18/18 07/18/18 Range/Units 20:05 20:05 20:05 WBC 9.49 (4.4-10.8) k/cumm RBC 4.74 (4.50-6.00) m/cumm Hgb 11.2 L (13.5-17.5) g/dL Hct 36.4 L (40.0-50.0) % MCV 76.8 L (80-95) fL MCH 23.6 L (27.0-33.0) pg MCHC 30.8 L (32.0-36.0) g/dL RDW 18.9 H (11.8-14.1) % Plt Count 299 (130-400) x1000/uL MPV 11.6 H (8.0-11.0) fL Immature Gran % 0.1 Neutrophils % 83.3 Lymphocytes % 9.6 Monocytes % 6.0 Eosinophils % 0.7 Basophils % 0.3 Absolute Neutrophils 7.90 H (1.2-6.7) k/cumm Absolute Lymphocytes 0.91 L (1.2-3.4) k/cumm Absolute Monocytes 0.57 (0.11-0.7) k/cumm Absolute Eosinophils 0.07 (0.0-0.7) k/cumm Absolute Basophils 0.03 (0.0-0.2) k/cumm Differential Comment Rbc morph reviewed RBC Morphology See below Anisocytosis 1+ Sodium 136 (136-145) mmol/L Potassium 3.9 (3.5-5.1) mmol/L Chloride 104 (98-107) mmol/L Carbon Dioxide 24.4 (21.0-32.0) mmol/L Anion Gap 7.6 (3-11) mmol/L BUN 18 (7-18) mg/dL Creatinine 0.91 (0.70-1.30) mg/dL Estimated GFR/1.73 m2 >= 60.00 (mL/min/1.73m2) Glucose 140 H (70-100) mg/dL Calcium 8.5 (8.5-10.1) mg/dL Magnesium 1.8 (1.8-2.4) mg/dL Total Bilirubin 0.3 (0.2-1.0) mg/dL AST 24 (15-37) U/L ALT 27 (12-78) U/L Alkaline Phosphatase 88 (46-116) U/L Total Protein 8.0 (6.4-8.2) g/dL Albumin 3.9 (3.4-5.0) g/dL Lipase 105 (73-393) U/L HPI - General Adult General Date/Time Provider Initiated Documentation: 07/18/18 19:47. HPI Narrative: This is a 68-year-old male with a past medical history of left leg amputation, hyperlipidemia, and multiple small bowel obstructions. He was recently referred to department where he had a pill swallow study for evaluation of his SBO's. Unfortunately the pill got stuck in a stricture. He was seen and assessed at [facility] today with a set up for surgery on Monday which is in roughly 5 days. This morning he has had mild abdominal pain, he has had worsening abdominal pain throughout the day, as well as bloating and nausea but no vomiting or diarrhea. He has had no flatulence or bowel movement since early this morning. He called [facility] and described his symptoms and they recommended he come to the nearest ER for further evaluation. The patient has not been eating anything since then. He denies any aggravating or relieving factors. There is no radiation of his abdominal distention or nausea. He denies any other complaints. He denies any chest pain, shortness of breath, dysuria, vomiting or numbness, tingling, weakness. He denies any blood thinner use. Past surgical history is also positive for left lower inguinal surgery, he denies IV or illicit drug use. He denies a pertinent family history. Related Data Home Medications Medication Instructions Recorded Confirmed blood sugar diagnostic [OneTouch #100 strip 02/05/13 07/01/18 Ultra Test] lancets [OneTouch Delica Lancets] #100 ea 02/05/13 07/01/18 albuterol sulfate [Proventil HFA] 2 puff INHALATION QID PRN #1 03/30/13 07/18/18 inhaler Allergies Allergy/AdvReac Type Severity Reaction Status Date / Time Influenza Virus Vaccines Allergy Severe ? allergic Unverified 07/09/18 15:52 reaction to flu vaccine pravastatin AdvReac Intermediate Muscle and Unverified 07/09/18 15:52 joint pain General Stated Complaint: Abd Prob BRENT: 3 Review of Systems Review of Systems 10 point review of systems was performed, pertinent positives and negatives are noted in the history of present illness. PFSH Medical History Actinic keratosis Asthma BPH (benign prostatic hyperplasia) Carpal tunnel syndrome Chronic pain syndrome Depression GERD (gastroesophageal reflux disease) Hearing loss Hypercholesterolemia Hypertension Tubular adenoma of colon Social History Smoking/Tobacco Use Status: Former Tobacco Use Surgical History BACK/NECK SURGERY Colonoscopy - MAC EGD - MAC (05/14/18) left below knee amputation Exam Narrative Exam Narrative: 1.Const: Well-nourished, Well-developed, appearing stated age 2.Eyes: PERRL, no conjunctival injection, and symmetrical lids. 3.ENT: Atraumatic external nose and ears. Moist MM. Neck: Symmetric, trachea midline, No thyromegaly. 4.CVS: +S1/S2, No murmurs or gallops. Peripheral pulses 2+ and equal in all extremities. Brisk capillary refill in all extremities. 5.RESP: Unlabored respiratory effort. Clear to auscultation bilaterally. No wheezes rales or rhonchi 6.GI: Soft, Nontender minimal distention, No hepatosplenomegaly. No guarding or rebound. Bowel sounds are present. Hypertympanic. No pain at McBurney's point, negative Maurice sign 7.MSK: Normocephalic/Atraumatic, Extremities w/o deformity or ttp No cyanosis or clubbing, Normal movement of all extremities 8.Skin: Warm, Dry. No rashes or lesions. 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 Sensation grossly intact, no focal neurologic deficits. 10.Psych: (AAO) x3. Appropriate mood and affect Course Vital Signs Respiratory Rate 12 07/18/18 19:02 Pulse Oximetry 97 07/18/18 19:02 Temperature 36.8 C 07/18/18 19:03 Pulse 94 H 07/18/18 20:46 Respiratory Rate 21 07/18/18 20:50 Blood Pressure 132/51 L 07/18/18 20:46 Pulse Oximetry 98 07/18/18 20:50 Lab/Test Results Lab/Test Results: Laboratory Tests 07/18/18 07/18/18 07/18/18 20:05 20:05 20:05 WBC 9.49 RBC 4.74 Hgb 11.2 L Hct 36.4 L MCV 76.8 L MCH 23.6 L MCHC 30.8 L RDW 18.9 H Plt Count 299 MPV 11.6 H Immature Gran % 0.1 Neutrophils % 83.3 Lymphocytes % 9.6 Monocytes % 6.0 Eosinophils % 0.7 Basophils % 0.3 Absolute Neutrophils 7.90 H Absolute Lymphocytes 0.91 L Absolute Monocytes 0.57 Absolute Eosinophils 0.07 Absolute Basophils 0.03 Differential Comment Rbc morph reviewed RBC Morphology See below Anisocytosis 1+ Sodium 136 Potassium 3.9 Chloride 104 Carbon Dioxide 24.4 Anion Gap 7.6 BUN 18 Creatinine 0.91 Estimated GFR/1.73 m2 >= 60.00 Glucose 140 H Calcium 8.5 Magnesium 1.8 Total Bilirubin 0.3 AST 24 ALT 27 Alkaline Phosphatase 88 Total Protein 8.0 Albumin 3.9 Lipase 105
[2018-07-18] MEDS: Breeza Beverage 473 ML BTL PO ×2 (21:37→21:38)
[2018-07-18] MEDS: Omnipaque 350 MG/ML 50 ML BTL PO (21:38)
[2018-07-18] MEDS: Omnipaque 350 MG/ML 100 ML BTL IV (21:38)
[2018-07-18] MEDS: HYDROmorphone 2 MG/ML VIAL 1 MG IVP (22:22)
--- NOTE | 2018-07-18 22:46 | DI.VRAD_ITS ---
EXAM: CT Abdomen and Pelvis With Intravenous Contrast EXAM DATE/TIME: 07/18/2018 8:04 PM CLINICAL HISTORY: 68 years old, male; Signs and symptoms; Other: Bloating; H/o of obstructions; Known strictures TECHNIQUE: Axial computed tomography images of the abdomen and pelvis with intravenous contrast. All CT scans at this facility use at least one of these dose optimization techniques: automated exposure control; mA and/or kV adjustment per patient size (includes targeted exams where dose is matched to clinical indication); or iterative reconstruction. Coronal and sagittal reformatted images were created and reviewed. CONTRAST: 100 ml of omnipaque 350 administered intravenously. COMPARISON: CT - ABD PELVIS WITH CONTRAST 07/01/2018 8:00 AM FINDINGS: Lower thorax: No acute findings. ABDOMEN: Liver: There is some diffuse hepatic steatosis present. Gallbladder and bile ducts: There is tiny gravel collected within the dependent gallbladder lumen again demonstrated. Pancreas: Normal. No ductal dilation. Spleen: Normal. No splenomegaly. Adrenals: Normal. No mass. Kidneys and ureters: Normal. No hydronephrosis. Stomach and bowel: Streak artifact arises from a radiopaque density within the lumen of the small intestine in the left lower quadrant, thought possibly consistent with capsular endoscopy versus ingested radiopaque foreign body. Correlation with past known GI history is recommended. Some loops of fluid-filled small intestine in the left lower jejunum demonstrate mucosal edematous thickening, measuring up to 2.9 cm transversely. In fact, the described radiopaque density in the lumen of the small intestinal tract appears to be causing partial obstruction of the preceding small intestine. This finding is demonstrated in the coronal reconstructed series 9; specifically images #[id number]. Diverticulosis coli is present; most numerous within the sigmoid region. No associated acute diverticulitis is detected. Appendix: No evidence of appendicitis. PELVIS: Bladder: Unremarkable as visualized. Reproductive: Unremarkable as visualized. ABDOMEN and PELVIS: Intraperitoneal space: Normal. No free air. No significant fluid collection. Bones/joints: There has been previous surgical fusion at L3-L4-L5 utilizing bilateral pedicle screws. There is evidence of advanced degenerative disc disease at L1-2. Marginal osteophytic spurring is present throughout the lumbar vertebrae. Soft tissues: Small bilateral inguinal hernias are identified which each contain fat; slightly more prominent on the right. Vasculature: Moderate atherosclerotic vascular plaquing is present. Lymph nodes: Normal. No enlarged lymph nodes. IMPRESSION: 1. A radiopaque density is identified in the lumen of the lower jejunal small intestinal tract in the left lower quadrant. This could possibly represent capsular endoscopy or ingested foreign body. 2. Mild mucosal wall edematous thickening and fluid filled slightly dilated loops of small intestine are seen proximal to this density which may indicate partial conical obstruction. Dictated and Authenticated by: Dave Leigh MD. Ordering:LINSEY REAL MD
--- NOTE | 2018-07-18 23:54 | NUR.NOTE ---
Nursing Note: Education provided about NG tube insertion and rationale. Education given to pt and family. All questions answered at this time and pt and family updated about plan of care.
[2018-07-19] VITALS (26 sets, daily range): BP systolic 106–148; BP diastolic 50–115; PULSE 63–100; RESP 11–24; TEMP 36.2–37.1; O2SAT 90–136
[2018-07-19] MEDS: Ondansetron 4 MG/2 ML VIAL IVP ×2 (01:40→19:03)
[2018-07-19] MEDS: Lidocaine 2% Viscous 15 ML CUP PO (01:41)
--- NOTE | 2018-07-19 02:05 | DI.RAD_ITS ---
SYMPTOM/DIAGNOSIS: S/P NG TUBE PLACEMENT PORTABLE CHEST: Comparison is made with 07/01/18 and chest and abdomen of 07/02/18. A nasogastric tube is again noted in the stomach. The lungs are suboptimally inflated. No gross infiltrate or effusion is seen. The heart size remains normal. IMPRESSION: No acute abnormality. Nasogastric tube.
--- NOTE | 2018-07-19 02:17 | DI.VRAD_ITS ---
EXAM: XR Chest, 1 View EXAM DATE/TIME: 07/19/2018 1:59 AM CLINICAL HISTORY: 68 years old, male; Device placement; Ng tube; Patient HX: Ng tube placement TECHNIQUE: XR of the chest, 1 view. COMPARISON: CR - ABD FLAT UPRIGHT PA CHEST 07/02/2018 6:30 AM FINDINGS: Tubes, catheters and devices: A nasogastric tube is present with its distal tip in the left upper quadrant in the body of the stomach. A radiopaque density overlies the left lateral lower abdomen thought to represent an endoscopic capsule. Lungs: Unremarkable. No consolidation. Pleural space: Unremarkable. No pleural effusion. No pneumothorax. Heart/Mediastinum: Unremarkable. No cardiomegaly. Upper abdomen: Unremarkable. Bones/joints: Unremarkable for patient's age. IMPRESSION: 1. A nasogastric tube is present which has distal tip in the region of the body of the stomach. 2. A radiopaque density overlies the left lower abdomen thought to represent an endoscopic capsule. Dictated and Authenticated by: Dave Leigh MD. Ordering:LINSEY REAL MD
[2018-07-19] MEDS: Benzocaine 20% 60 ML CAN 10 ML TP (02:31)
[2018-07-19] MEDS: MORPHine 10 MG/ML VIAL IV ×3 (04:27→22:25)
[2018-07-19] MEDS: Pantoprazole 40 MG VIAL IVP (04:31)
[2018-07-19] MEDS: Metoprolol 5 MG/5 ML VIAL IVP ×2 (04:32→11:12)
[2018-07-19] MEDS: Normal Saline Flush 10 ML SYR IVP ×4 (04:38→19:04)
[2018-07-19 07:17] LABS: Platelet Count 301 x1000/uL (130-400)
--- NOTE | 2018-07-19 08:25 | RESPIRATORY ---
Breath sounds clear, declines MDI
[2018-07-19] MEDS: Enoxaparin 40 MG/0.4 ML SYR SC (08:50)
--- NOTE | 2018-07-19 12:08 | PHARADMIT ---
Admission Pharmacy Clinical Review Small Bowel Obstruction Code Status Full Code Current Weight Wgt- 92 kg Renally Cleared and Narrow Therapeutic Index Meds CrCl~ 75 mL/min Meds-OK QTc Value / Action Taken Program na BP Control, Fever BP-148/87 Tmax- 36.8C Electrolytes reviewed Na- 136 K+3.9 Mag-1.8 DVT Prophylaxis Lovenox Opiate Usage / Scheduled Bowel Regimen Ordered Yes No Plt/SCr for Heparin / Enoxaparin Plts- 301 SCr-0.91 INR for Warfarin na H/H stable, WBC/Bands H&H-11.2/36.4 WBC- 9.49 Antibiotic appropriateness none Cultures and Sensitivities none Surgical ABX d/c within 24 hr NA DM control / Insulin Dosing BG- 140 Heart Failure (Check EF%) (DEISI's, B-Block, Diuretics) Lopressor-IV, IV to PO Switch No Home Meds Reviewed Yes Home Meds Not Ordered Lisinopril, Miralax, Senna Comments
--- NOTE | 2018-07-19 15:05 | W.PM.HP.N ---
Assessment and Plan (1) Partial small bowel obstruction: Current visit: Yes Status: Acute A\\ SBO vs PSBO again. He is scheduled for surgery on Monday to look for a stricture and remove the small bowel that is affected. P\\ Patient is passing flatus NG: removed Diet: start sips of clears Ambulation: up and walking TID IV fluids : will reduce once taking good po Message left for Dr. High regarding patient. Mr. Noel is a pleasant 68 year old who was admitted early this am with a SBO again. He had a capsule endoscopy done a few weeks ago and the capsule it still in the distal small bowel. The patient is scheduled for surgery on Monday with Dr. High [place] [facility] [place] The ED attempted to transfer the patient to [facility] but were told there were no beds. Patient has had an NG tube in since admission. He is now passing flatus. NG out put is down to 100 cc in 8 hours. The discharge is bilious. He is feeling better, although frustrated. He has had no N/V this time around. No BM yet. Review of Systems Constitutional Reports system reviewed and no additional complaints, except as docu Cardiovascular Reports system reviewed and no additional complaints, except as docu Respiratory Reports system reviewed and no additional complaints, except as docu Gastrointestinal Reports as per [facility] Genitourinary Reports system reviewed and no additional complaints, except as docu Neurologic Reports system reviewed and no additional complaints, except as docu Endocrine Reports system reviewed and no additional complaints, except as docu Hematologic/Lymphatic Reports system reviewed and no additional complaints, except as docu PFSH Medical History Actinic keratosis Asthma BPH (benign prostatic hyperplasia) Carpal tunnel syndrome Chronic pain syndrome Depression GERD (gastroesophageal reflux disease) Hearing loss Hypercholesterolemia Hypertension Tubular adenoma of colon Social History Smoking/Tobacco Use Status: Former Tobacco Use Surgical History BACK/NECK SURGERY Colonoscopy - MAC EGD - MAC (05/14/18) left below knee amputation Meds Home Medications Medication Instructions Recorded Confirmed Type blood sugar diagnostic [OneTouch #100 strip 02/05/13 07/01/18 History Ultra Test] lancets [OneTouch Delica Lancets] #100 ea 02/05/13 07/01/18 History albuterol sulfate [Proventil HFA] 2 puff INHALATION QID PRN #1 03/30/13 07/18/18 History inhaler fluticasone 2 spry NS DAILY #3 script 07/12/17 07/18/18 Clinic lisinopril 20 mg PO DAILY #90 tab-cap 11/27/17 07/18/18 Clinic Metoprolol Succinate 50 mg AD HS #90 tab-cap 01/25/18 07/18/18 Clinic esomeprazole magnesium [Nexium] 40 mg PO DAILY #90 tab-cap 02/13/18 07/18/18 Clinic acetaminophen-codeine 1 ea PO TID #90 tab 04/25/18 07/18/18 Clinic [Tylenol-Codeine #4] polyethylene glycol 3350 17 gm PO DAILY #30 packet 07/09/18 07/18/18 Clinic sennosides [Senokot] 1 ea PO HS #30 tab 07/09/18 07/18/18 Clinic Allergies Allergy/AdvReac Type Severity Reaction Status Date / Time Influenza Virus Vaccines Allergy Severe ? allergic Unverified 07/09/18 15:52 reaction to flu vaccine pravastatin AdvReac Intermediate Muscle and Unverified 07/09/18 15:52 joint pain Exam Const General: healthy appearing and no acute distress Resp Auscultation: clear to auscultation bilaterally Cardio Rate: regular rate Rhythm: regular rhythm Heart Sounds: no gallops, no murmurs and no rubs GI Auscultation: normoactive bowel sounds Results Labs : 07/19/18 06:24 07/18/18 20:05 Abnormal lab results 07/18/18 07/18/18 Range/Units 20:05 20:05 Hgb 11.2 L (13.5-17.5) g/dL Hct 36.4 L (40.0-50.0) % MCV 76.8 L (80-95) fL MCH 23.6 L (27.0-33.0) pg MCHC 30.8 L (32.0-36.0) g/dL RDW 18.9 H (11.8-14.1) % MPV 11.6 H (8.0-11.0) fL Absolute Neutrophils 7.90 H (1.2-6.7) k/cumm Absolute Lymphocytes 0.91 L (1.2-3.4) k/cumm Glucose 140 H (70-100) mg/dL Diabetes panel 07/18/18 Range/Units 20:05 Sodium 136 (136-145) mmol/L Potassium 3.9 (3.5-5.1) mmol/L Chloride 104 (98-107) mmol/L Carbon Dioxide 24.4 (21.0-32.0) mmol/L BUN 18 (7-18) mg/dL Creatinine 0.91 (0.70-1.30) mg/dL Glucose 140 H (70-100) mg/dL Calcium 8.5 (8.5-10.1) mg/dL AST 24 (15-37) U/L ALT 27 (12-78) U/L Alkaline Phosphatase 88 (46-116) U/L Total Protein 8.0 (6.4-8.2) g/dL Albumin 3.9 (3.4-5.0) g/dL Calcium panel 07/18/18 Range/Units 20:05 Calcium 8.5 (8.5-10.1) mg/dL Albumin 3.9 (3.4-5.0) g/dL Pituitary panel 07/18/18 Range/Units 20:05 Sodium 136 (136-145) mmol/L Potassium 3.9 (3.5-5.1) mmol/L Chloride 104 (98-107) mmol/L Carbon Dioxide 24.4 (21.0-32.0) mmol/L BUN 18 (7-18) mg/dL Creatinine 0.91 (0.70-1.30) mg/dL Glucose 140 H (70-100) mg/dL Calcium 8.5 (8.5-10.1) mg/dL Adrenal panel 07/18/18 Range/Units 20:05 Sodium 136 (136-145) mmol/L Potassium 3.9 (3.5-5.1) mmol/L Chloride 104 (98-107) mmol/L Carbon Dioxide 24.4 (21.0-32.0) mmol/L BUN 18 (7-18) mg/dL Creatinine 0.91 (0.70-1.30) mg/dL Glucose 140 H (70-100) mg/dL Calcium 8.5 (8.5-10.1) mg/dL Total Bilirubin 0.3 (0.2-1.0) mg/dL AST 24 (15-37) U/L ALT 27 (12-78) U/L Alkaline Phosphatase 88 (46-116) U/L Total Protein 8.0 (6.4-8.2) g/dL Albumin 3.9 (3.4-5.0) g/dL Laboratory Tests 07/18/18 07/18/18 07/18/18 20:05 20:05 20:05 WBC 9.49 RBC 4.74 Hgb 11.2 L Hct 36.4 L MCV 76.8 L MCH 23.6 L MCHC 30.8 L RDW 18.9 H Plt Count 299 MPV 11.6 H Immature Gran % 0.1 Neutrophils % 83.3 Lymphocytes % 9.6 Monocytes % 6.0 Eosinophils % 0.7 Basophils % 0.3 Absolute Neutrophils 7.90 H Absolute Lymphocytes 0.91 L Absolute Monocytes 0.57 Absolute Eosinophils 0.07 Absolute Basophils 0.03 Differential Comment Rbc morph reviewed RBC Morphology See below Anisocytosis 1+ Sodium 136 Potassium 3.9 Chloride 104 Carbon Dioxide 24.4 Anion Gap 7.6 BUN 18 Creatinine 0.91 Estimated GFR/1.73 m2 >= 60.00 Glucose 140 H Calcium 8.5 Magnesium 1.8 Total Bilirubin 0.3 AST 24 ALT 27 Alkaline Phosphatase 88 Total Protein 8.0 Albumin 3.9 Lipase 105 07/19/18 06:24 WBC RBC Hgb Hct MCV MCH MCHC RDW Plt Count 301 MPV Immature Gran % Neutrophils % Lymphocytes % Monocytes % Eosinophils % Basophils % Absolute Neutrophils Absolute Lymphocytes Absolute Monocytes Absolute Eosinophils Absolute Basophils Differential Comment RBC Morphology Anisocytosis Sodium Potassium Chloride Carbon Dioxide Anion Gap BUN Creatinine Estimated GFR/1.73 m2 Glucose Calcium Magnesium Total Bilirubin AST ALT Alkaline Phosphatase Total Protein Albumin Lipase
--- NOTE | 2018-07-19 15:08 | HPE_ITS ---
Assessment and Plan (1) Partial small bowel obstruction: Current visit: Yes Status: Acute A\\ SBO vs PSBO again. He is scheduled for surgery on Monday to look for a stricture and remove the small bowel that is affected. P\\ Patient is passing flatus NG: removed Diet: start sips of clears Ambulation: up and walking TID IV fluids : will reduce once taking good po Message left for Dr. High regarding patient. Mr. Noel is a pleasant 68 year old who was admitted early this am with a SBO again. He had a capsule endoscopy done a few weeks ago and the capsule it still in the distal small bowel. The patient is scheduled for [place] on Monday with [place]. [place] [facility] [place] ED attempted to [place] the patient [place] [facility] [place] were told [place] were no beds. Patient has had an NG tube in since admission. He is now passing flatus. NG out put is down to 100 cc in 8 hours. The discharge is bilious. He is feeling better, although frustrated. He has had no N/V this time around. No BM yet. Review of Systems Constitutional Reports system reviewed and no additional complaints, except as docu Cardiovascular Reports system reviewed and no additional complaints, except as docu Respiratory Reports system reviewed and no additional complaints, except as docu Gastrointestinal Reports as per [facility] Genitourinary Reports system reviewed and no additional complaints, except as docu Neurologic Reports system reviewed and no additional complaints, except as docu Endocrine Reports system reviewed and no additional complaints, except as docu Hematologic/Lymphatic Reports system reviewed and no additional complaints, except as docu PFSH Medical History Actinic keratosis Asthma BPH (benign prostatic hyperplasia) Carpal tunnel syndrome Chronic pain syndrome Depression GERD (gastroesophageal reflux disease) Hearing loss Hypercholesterolemia Hypertension Tubular adenoma of colon Social History Smoking/Tobacco Use Status: Former Tobacco Use Surgical History BACK/NECK SURGERY Colonoscopy - MAC EGD - MAC (05/14/18) left below knee amputation Meds Home Medications Medication Instructions Recorded Confirmed Type blood sugar diagnostic [OneTouch #100 strip 02/05/13 07/01/18 History Ultra Test] lancets [OneTouch Delica Lancets] #100 ea 02/05/13 07/01/18 History albuterol sulfate [Proventil HFA] 2 puff INHALATION QID PRN #1 03/30/13 History inhaler fluticasone 2 spry NS DAILY #3 script 07/12/17 07/18/18 Clinic lisinopril 20 mg PO DAILY #90 tab-cap 11/27/17 07/18/18 Clinic Metoprolol Succinate 50 mg AD HS #90 tab-cap 01/25/18 07/18/18 Clinic esomeprazole magnesium [Nexium] 40 mg PO DAILY #90 tab-cap 02/13/18 07/18/18 Clinic acetaminophen-codeine 1 ea PO TID #90 tab 04/25/18 07/18/18 Clinic [Tylenol-Codeine #4] polyethylene glycol 3350 17 gm PO DAILY #30 packet 07/09/18 07/18/18 Clinic sennosides [Senokot] 1 ea PO HS #30 tab 07/09/18 07/18/18 Clinic Allergies Allergy/AdvReac Type Severity Reaction Status Date / Time Influenza Virus Vaccines Allergy Severe ? allergic Unverified 07/09/18 15:52 reaction to flu vaccine pravastatin AdvReac Intermediate Muscle and Unverified 07/09/18 15:52 joint pain Exam Const General: healthy appearing and no acute distress Resp Auscultation: clear to auscultation bilaterally Cardio Rate: regular rate Rhythm: regular rhythm Heart Sounds: no gallops, no murmurs and no rubs GI Auscultation: normoactive bowel sounds Results Labs : 07/19/18 06:24 07/18/18 20:05 Abnormal lab results 07/18/18 07/18/18 Range/Units 20:05 20:05 Hgb 11.2 L (13.5-17.5) g/dL Hct 36.4 L (40.0-50.0) % MCV 76.8 L (80-95) fL MCH 23.6 L (27.0-33.0) pg MCHC 30.8 L (32.0-36.0) g/dL RDW 18.9 H (11.8-14.1) % MPV 11.6 H (8.0-11.0) fL Absolute Neutrophils 7.90 H (1.2-6.7) k/cumm Absolute Lymphocytes 0.91 L (1.2-3.4) k/cumm Glucose 140 H (70-100) mg/dL Diabetes panel 07/18/18 Range/Units 20:05 Sodium 136 (136-145) mmol/L Potassium 3.9 (3.5-5.1) mmol/L Chloride 104 (98-107) mmol/L Carbon Dioxide 24.4 (21.0-32.0) mmol/L BUN 18 (7-18) mg/dL Creatinine 0.91 (0.70-1.30) mg/dL Glucose 140 H (70-100) mg/dL Calcium 8.5 (8.5-10.1) mg/dL AST 24 (15-37) U/L ALT 27 (12-78) U/L Alkaline Phosphatase 88 (46-116) U/L Total Protein 8.0 (6.4-8.2) g/dL Albumin 3.9 (3.4-5.0) g/dL Calcium panel 07/18/18 Range/Units 20:05 Calcium 8.5 (8.5-10.1) mg/dL Albumin 3.9 (3.4-5.0) g/dL Pituitary panel 07/18/18 Range/Units 20:05 Sodium 136 (136-145) mmol/L Potassium 3.9 (3.5-5.1) mmol/L Chloride 104 (98-107) mmol/L Carbon Dioxide 24.4 (21.0-32.0) mmol/L BUN 18 (7-18) mg/dL Creatinine 0.91 (0.70-1.30) mg/dL Glucose 140 H (70-100) mg/dL Calcium 8.5 (8.5-10.1) mg/dL Adrenal panel 07/18/18 Range/Units 20:05 Sodium 136 (136-145) mmol/L Potassium 3.9 (3.5-5.1) mmol/L Chloride 104 (98-107) mmol/L Carbon Dioxide 24.4 (21.0-32.0) mmol/L BUN 18 (7-18) mg/dL Creatinine 0.91 (0.70-1.30) mg/dL Glucose 140 H (70-100) mg/dL Calcium 8.5 (8.5-10.1) mg/dL Total Bilirubin 0.3 (0.2-1.0) mg/dL AST 24 (15-37) U/L ALT 27 (12-78) U/L Alkaline Phosphatase 88 (46-116) U/L Total Protein 8.0 (6.4-8.2) g/dL Albumin 3.9 (3.4-5.0) g/dL Laboratory Tests 07/18/18 07/18/18 07/18/18 20:05 20:05 20:05 WBC 9.49 RBC 4.74 Hgb 11.2 L Hct 36.4 L MCV 76.8 L MCH 23.6 L MCHC 30.8 L RDW 18.9 H Plt Count 299 MPV 11.6 H Immature Gran % 0.1 Neutrophils % 83.3 Lymphocytes % 9.6 Monocytes % 6.0 Eosinophils % 0.7 Basophils % 0.3 Absolute Neutrophils 7.90 H Absolute Lymphocytes 0.91 L Absolute Monocytes 0.57 Absolute Eosinophils 0.07 Absolute Basophils 0.03 Differential Comment Rbc morph reviewed RBC Morphology See below Anisocytosis 1+ Sodium 136 Potassium 3.9 Chloride 104 Carbon Dioxide 24.4 Anion Gap 7.6 BUN 18 Creatinine 0.91 Estimated GFR/1.73 m2 >= 60.00 Glucose 140 H Calcium 8.5 Magnesium 1.8 Total Bilirubin 0.3 AST 24 ALT 27 Alkaline Phosphatase 88 Total Protein 8.0 Albumin 3.9 Lipase 105 07/19/18 06:24 WBC RBC Hgb Hct MCV MCH MCHC RDW Plt Count 301 MPV Immature Gran % Neutrophils % Lymphocytes % Monocytes % Eosinophils % Basophils % Absolute Neutrophils Absolute Lymphocytes Absolute Monocytes Absolute Eosinophils Absolute Basophils Differential Comment RBC Morphology Anisocytosis Sodium Potassium Chloride Carbon Dioxide Anion Gap BUN Creatinine Estimated GFR/1.73 m2 Glucose Calcium Magnesium Total Bilirubin AST ALT Alkaline Phosphatase Total Protein Albumin Lipase
--- NOTE | 2018-07-19 16:42 | PDOC.CMIN ---
Care Management Initial Assess REASON FOR HOSPITALIZATION:: SBO PAST MEDICAL HISTORY/PAST SURGICAL HISTORY:: Actinic keratosis. Asthma. BPH (benign prostatic hyperplasia). Carpal tunnel syndrome. Chronic pain syndrome. Depression. GERD (gastroesophageal reflux disease). Hearing loss, Hypercholesterolemia, Hypertension, Tubular adenoma of colon, BACK/NECK SURGERY, Colonoscopy - MAC, EGD - MAC (05/14/18), left below knee amputation PREVIOUS FUNCTIONAL STATUS/SOCIAL/FAMILY SUPPORTS:: Warren resides in [place] with his , Yoko. He reports his adult daughter also resides locally. 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 He is independent with his ADLs and transportation. CURRENT FUNCTIONAL STATUS:: Warren is washing up and brushing his teeth when CM meets with him. He reports being tired, but is pleasant in interaction and open to conversation. ADVANCE DIRECTIVES:: On file at [facility]. Has patient been provided with information about the portal?: Yes Did the patient sign up for the portal?: No CODE STATUS:: Full Code INSURANCE COVERAGE / FINANCIAL ISSUES:: Medicare, Financial Asst. 100. CURRENT HOME/COMMUNITY SERVICES/EQUIPMENT:: No current services. Pt utilizes a cane and walker for ambulation at home. PRIMARY CARE PHYSICIAN:: Yoko Esqueda. POTENTIAL DISCHARGE NEEDS:: Follow up appointment with primary care provider, Warren reports f/u at [facility] on Monday; CM notified Lluvia; RNCC. PATIENT/FAMILY EDUCATION NEEDS:: Review of discharge instructions, discuss Ask Me Three. ANTICIPATED BARRIERS TO DISCHARGE:: None identified. TRANSPORTATION:: Via private vehicle with his , Yoko. PLAN:: CM will continue to monitor clincial progress and support discharge planning considerations. Warren is scheduled for surgical intervention at [facility] on Monday, he is currently be monitored-undetermined if he will discharge or remain inpatient until surgical appt at [facility]. Readmission - Within the Past 30 Days Yes or No: Y - Date of First Admission Date of 1st Admission: 08/01/18 - Date of this Admission Date of Admission: 07/19/18 This admission was: Through ED - Office Visit Since 1st Admission Have you seen your PCP in the office since discharge?: No Had an appointment Been Scheduled?: Yes Date of Scheduled Appointment: 07/10/18 - Speicalist Appointments Have you seen any other specialist since your 1st Admission?: No - I. Interview patient and/or Family Difficulty reaching your doctor or getting an office appt?: No Have you had trouble purchasing/ or taking medication?: No Have you had trouble with getting meals at home?: No Did you feel ready for discharge when you left the last time: Yes - If the patient had a VNA ordered Did the patient have a VNA order?: No - Ask the Care Team Members: What do you think caused the patient to be readmitted: Recurrent SBO while awaiting surgical intervention at [facility] scheduled for 07/23/18. - ED visits How many ED visits in the past 12 months: 5 - Assessment for Readmission Summary of readmission circumstances, based upon interviews: Recurrent SBO while awaiting surgical intervention at [facility] scheduled for 07/23/18.
--- NOTE | 2018-07-19 16:58 | INITIAL_ITS ---
Care Management Initial Assess REASON FOR HOSPITALIZATION:: SBO PAST MEDICAL HISTORY/PAST SURGICAL HISTORY:: Actinic keratosis. Asthma. BPH ( benign prostatic hyperplasia). Carpal tunnel syndrome. Chronic pain syndrome. Depression. GERD (gastroesophageal reflux disease). Hearing loss, Hypercholesterolemia, Hypertension, Tubular adenoma of colon, BACK/NECK SURGERY , Colonoscopy - MAC, EGD - MAC (05/14/18), left below knee amputation PREVIOUS FUNCTIONAL STATUS/SOCIAL/FAMILY SUPPORTS:: Warren resides in [place] with his , Yoko. He reports his adult daughter also resides locally. 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 He is independent with his ADLs and transportation. CURRENT FUNCTIONAL STATUS:: Warren is washing up and brushing his teeth when CM meets with him. He reports being tired, but is pleasant in interaction and open to conversation. ADVANCE DIRECTIVES:: On file at [facility]. Has patient been provided with information about the portal?: Yes Did the patient sign up for the portal?: No CODE STATUS:: Full Code INSURANCE COVERAGE / FINANCIAL ISSUES:: Medicare, Financial Asst. 100. CURRENT HOME/COMMUNITY SERVICES/EQUIPMENT:: No current services. Pt utilizes a cane and walker for ambulation at home. PRIMARY CARE PHYSICIAN:: Yoko Esqueda. POTENTIAL DISCHARGE NEEDS:: Follow up appointment with primary care provider, Warren reports f/u at [facility] on Monday; CM notified Lluvia; RNCC. PATIENT/FAMILY EDUCATION NEEDS:: Review of discharge instructions, discuss Ask Me Three. ANTICIPATED BARRIERS TO DISCHARGE:: None identified. TRANSPORTATION:: Via private vehicle with his , Yoko. PLAN:: CM will continue to monitor clincial progress and support discharge planning considerations. Warren is scheduled for surgical intervention at [facility] on Monday, he is currently be monitored-undetermined if he will discharge or remain inpatient until surgical appt at [facility]. Readmission - Within the Past 30 Days Yes or No: Y - Date of First Admission Date of 1st Admission: 08/01/18 - Date of this Admission Date of Admission: 07/19/18 This admission was: Through ED - Office Visit Since 1st Admission Have you seen your PCP in the office since discharge?: No Had an appointment Been Scheduled?: Yes Date of Scheduled Appointment: 07/10/18 - Speicalist Appointments Have you seen any other specialist since your 1st Admission?: No - I. Interview patient and/or Family Difficulty reaching your doctor or getting an office appt?: No Have you had trouble purchasing/ or taking medication?: No Have you had trouble with getting meals at home?: No Did you feel ready for discharge when you left the last time: Yes - If the patient had a VNA ordered Did the patient have a VNA order?: No - Ask the Care Team Members: What do you think caused the patient to be readmitted: Recurrent SBO while awaiting surgical intervention at [facility] scheduled for . - ED visits How many ED visits in the past 12 months: 5 - Assessment for Readmission Summary of readmission circumstances, based upon interviews: Recurrent SBO while awaiting surgical intervention at [facility] scheduled for .
[2018-07-19] MEDS: Metoprolol CR 50 MG TABCR PO (22:28)
[2018-07-20 02:31] VITALS: BP 128/60; PULSE 71; RESP 16; TEMP 36.2; O2SAT 98
[2018-07-20] MEDS: MORPHine 10 MG/ML VIAL IV ×2 (02:36→09:14)
[2018-07-20] MEDS: Pantoprazole 40 MG VIAL IVP (03:52)
[2018-07-20 08:06] VITALS: BP 114/63; PULSE 94; RESP 17; TEMP 37.3; O2SAT 98
[2018-07-20] MEDS: Lisinopril 20 MG TAB PO (08:17)
[2018-07-20] MEDS: Enoxaparin 40 MG/0.4 ML SYR SC (08:18)
[2018-07-20] MEDS: Normal Saline Flush 10 ML SYR IVP (09:14)
[2018-07-20 09:41] VITALS: PULSE 95
--- NOTE | 2018-07-20 11:30 | W.PM.DS.N ---
DS: Diagnosis Discharge Diagnosis (1) Partial small bowel obstruction: Status: Resolved Asessment and Plan: 68 y/o male with recurrent intermittent PSBO (partial small bowel obstruction). He has a retained endoscopy capsule in his small bowel and a reported stricture. He is scheduled for surgery at [facility] on 07/23/[address] High. His symptoms have resolved at this time. He is instructed to stay on a liquid and low residue diet until his surgery on 07/23/18. Exam Const General: cooperative, healthy appearing, comfortable, no acute distress and well developed Nutritional Appearance: well nourished Orientation: alert and oriented x3 HENMT Head: normal to inspection and no acral cyanosis Eyes Sclera: sclerae normal Resp Effort & Inspection: normal respiratory effort and able to speak in complete sentences GI Inspection: non-distended Palpation: soft, no guarding and nontender Skin General skin exam: no rashes or lesions noted and no jaundice Neuro General: alert, awake and oriented x3 Speech: speech normal DS: Data Completed studies during hospitalization [Text1]: Vital Signs Temp 37.3 C 07/20/18 08:06 Pulse 95 H 07/20/18 09:41 Resp 17 07/20/18 08:06 BP 114/63 07/20/18 08:06 Pulse Ox 98 07/20/18 08:06 Intake & Output 07/19/18 07/19/18 07/20/18 11:59 23:59 11:59 Intake Total 80 / 80 490 / 490 600 / 600 Output Total 800 / 800 Balance -720 / -720 490 / 490 600 / 600 Weight 92.079 kg Intake: IV 80 / 80 40 / 40 20 / 20 Oral 450 / 450 580 / 580 Output: Gastric Drainage 600 / 600 Right Nare 600 / 600 Urine 200 / 200 Other: Urine Color Yellow Yellow Urine Appearance Clear Clear Urine Odor Normal Normal Comment Void x1 in the toilet. Stool Size Small Stool Characteristics Soft Formed Brown Gastric Occult Blood Right Nare Negative Voiding Methods Urinal Toilet Toilet Date of service: 07/20/18 Time of Service: 11:31
[2018-07-20 11:31] VITALS: PULSE 97
--- NOTE | 2018-07-20 11:31 | PDOC.CMDIS ---
- If Service Date Differs Date of service: 07/20/18 Time of Service: 11:31 LACE Index Scoring Tool - Questions: Length of Stay (in days): 2 Acuity (Admit via E.D.?): Yes E.D. Visits: 5 - Answers: Total Score: 9 Risk of Readmission: Low Risk Care Management Discharge Reason for Hospitalization: SBO Discharge Plan: Warren will return home when ready per MD. Pt will discharge with no services and follow up with [facility] per MD on 07/23. He will transport via private vehicle with his , Yoko. Patient/Family Education Needs: Review discharge instructions and any limitations. Ask Me Three discussion.
--- NOTE | 2018-07-20 11:34 | CMDISCH_ITS ---
- If Service Date Differs Date of service: 07/20/18 Time of Service: 11:31 LACE Index Scoring Tool - Questions: Length of Stay (in days): 2 Acuity (Admit via E.D.?): Yes E.D. Visits: 5 - Answers: Total Score: 9 Risk of Readmission: Low Risk Care Management Discharge Reason for Hospitalization: SBO Discharge Plan: Warren will return home when ready per MD. Pt will discharge with no services and follow up with [facility] per MD on 07/23. He will transport via private vehicle with his , Yoko. Patient/Family Education Needs: Review discharge instructions and any limitations. Ask Me Three discussion.
--- NOTE | 2018-07-20 11:39 | DSE_ITS ---
DS: Diagnosis Discharge Diagnosis (1) Partial small bowel obstruction: Status: Resolved Asessment and Plan: 68 y/o male with recurrent intermittent PSBO (partial small bowel obstruction). He has a retained endoscopy capsule in his small bowel and a reported stricture. He is scheduled for surgery at [facility] on 08/[address] High. His symptoms have resolved at this time. He is instructed to stay on a liquid and low residue diet until his surgery on . Exam Const General: cooperative, healthy appearing, comfortable, no acute distress and well developed Nutritional Appearance: well nourished Orientation: alert and oriented x3 HENMT Head: normal to inspection and no acral cyanosis Eyes Sclera: sclerae normal Resp Effort & Inspection: normal respiratory effort and able to speak in complete sentences GI Inspection: non-distended Palpation: soft, no guarding and nontender Skin General skin exam: no rashes or lesions noted and no jaundice Neuro General: alert, awake and oriented x3 Speech: speech normal DS: Data Completed studies during hospitalization [Text1]: Vital Signs Temp 37.3 C 07/20/18 08:06 Pulse 95 H 07/20/18 09:41 Resp 17 07/20/18 08:06 BP 114/63 07/20/18 08:06 Pulse Ox 98 07/20/18 08:06 Intake & Output 07/19/18 07/19/18 07/20/18 11:59 23:59 11:59 Intake Total 80 / 80 490 / 490 600 / 600 Output Total 800 / 800 Balance -720 / -720 490 / 490 600 / 600 Weight 92.079 kg Intake: IV 80 / 80 40 / 40 20 / 20 Oral 450 / 450 580 / 580 Output: Gastric Drainage 600 / 600 Right Nare 600 / 600 Urine 200 / 200 Other: Urine Color Yellow Yellow Urine Appearance Clear Clear Urine Odor Normal Normal Comment Void x1 in the toilet. Stool Size Small Stool Characteristics Soft Formed Brown Gastric Occult Blood Right Nare Negative Voiding Methods Urinal Toilet Toilet Date of service: 07/20/18 Time of Service: 11:31
[2018-07-20 11:43] VITALS: BP 158/65; PULSE 97; RESP 18; TEMP 38.1; O2SAT 98
[2018-07-20 12:46] VITALS: BP 148/57; PULSE 60; TEMP 37
== END 2018-07-20 14:10 | disposition home or self-care (01) ==
LOC: ER 07-19 01:44 → MS 07-19 02:42
PROVIDERS: Surgery; Admitting Provider Surgery; Emergency Provider Student in an Organized Health Care Education/Training Program; PCP Internal Medicine; Visit Provider Surgery
DX: K56.690 Other partial intestinal obstruction (principal); T18.3XXA Foreign body in small intestine, initial encounter; Y83.8 Other surgical procedures as the cause of abnormal reaction of the patient, or of later complication, without mention of misadventure at the time of the procedure
CPT/HCPCS: 36415; 71045; 77001; 80053; 83690; 96361; 96374; 96375; 96376; 99217; 99219; 99222; 99285; J1650; 74177; 83735; 85025; 85049; G0378; J2270; J2405; J3490; Q9967

== ENCOUNTER 2018-08-23 14:27 | Outpatient (CLI) | payer MEDICARE, SELFPAY ==
[2018-08-23 15:20] LABS: HCT 32.8 % (40.0-50.0); HGB 10.3 g/dL (13.5-17.5); Mean Corp. HGB Concentration 31.4 g/dL (32.0-36.0); Mean Corpuscular Hemoglobin 24.1 pg (27.0-33.0); Mean Corpuscular Volume 76.8 fL (80-95); Mean Platelet Volume 11.4 fL (8.0-11.0); Platelet Count 218 x1000/uL (130-400); RBC 4.27 m/cumm (4.50-6.00); RBC Distribution Width 16.2 % (11.8-14.1); White Blood Cell Count 7.34 k/cumm (4.4-10.8)
[2018-08-23 17:05] LABS: Iron 25 ug/dL (50-175); Total Iron Binding Capacity 382 ug/dL (250-450); Transferrin Sat 7 % (20-55)
[2018-08-23 17:44] LABS: Folate 18.8 ng/mL (8.6-20.0); Vitamin B12 373 pg/mL (193-986)
== END 2018-08-23 14:47 ==
PROVIDERS: PCP Internal Medicine; Visit Provider Internal Medicine
DX: D64.9 Anemia, unspecified (principal)
CPT/HCPCS: 36415; 85027; 82607; 82746; 83540; 83550

== ENCOUNTER 2018-09-06 00:56 | Outpatient (RCR) | payer MEDICARE, SELFPAY ==
[2018-09-06] MEDS: Normal Saline Flush 10 ML SYR IVP (13:06)
[2018-09-06] MEDS: IRON SUCROSE COMPLEX 200 MG in Normal Saline 100 ML 110 MG IVPB (13:06)
== END 2018-09-12 23:59 | disposition home or self-care (01) ==
LOC: INF 00:56
PROVIDERS: PCP Internal Medicine; Visit Provider Internal Medicine
DX: D50.9 Iron deficiency anemia, unspecified (principal)
CPT/HCPCS: 96365; J1756

== ENCOUNTER 2018-09-26 01:20 | Outpatient (RCR) | payer MEDICARE, SELFPAY ==
[2018-09-13] MEDS: IRON SUCROSE COMPLEX 200 MG in Normal Saline 100 ML 110 MG IVPB (13:37)
[2018-09-13] MEDS: Normal Saline Flush 10 ML SYR IVP (13:37)
[2018-09-19] MEDS: Normal Saline Flush 10 ML SYR IVP (13:40)
[2018-09-19] MEDS: IRON SUCROSE COMPLEX 200 MG in Normal Saline 100 ML 110 MG IVPB (13:57)
[2018-09-26] MEDS: Normal Saline Flush 10 ML SYR IVP (13:30)
[2018-09-26] MEDS: IRON SUCROSE COMPLEX 200 MG in Normal Saline 100 ML 110 MG IVPB (13:36)
== END 2018-10-12 23:59 | disposition home or self-care (01) ==
LOC: INF 01:20
PROVIDERS: PCP Internal Medicine; Visit Provider Internal Medicine
DX: D50.9 Iron deficiency anemia, unspecified (principal)
CPT/HCPCS: 96365; J1756

== ENCOUNTER 2018-10-10 14:27 | Outpatient (CLI) | payer MEDICARE, SELFPAY ==
[2018-10-10 14:53] LABS: HCT 43.9 % (40.0-50.0); HGB 14.1 g/dL (13.5-17.5); Mean Corp. HGB Concentration 32.1 g/dL (32.0-36.0); Mean Corpuscular Hemoglobin 26.5 pg (27.0-33.0); Mean Corpuscular Volume 82.5 fL (80-95); Mean Platelet Volume 11.7 fL (8.0-11.0); Platelet Count 257 x1000/uL (130-400); RBC 5.32 m/cumm (4.50-6.00); RBC Distribution Width 20.9 % (11.8-14.1); White Blood Cell Count 8.49 k/cumm (4.4-10.8)
[2018-10-10 15:39] LABS: Hemoglobin A1C 5.6 % (4.5-6.2)
[2018-10-10 15:42] LABS: Iron 77 ug/dL (50-175); Total Iron Binding Capacity 359 ug/dL (250-450); Transferrin Sat 21 % (20-55)
[2018-10-10 15:53] LABS: ALT 24 U/L (12-78); AST 21 U/L (15-37); Albumin 4.1 g/dL (3.4-5.0); Alkaline Phosphatase 91 U/L (46-116); BUN 22 mg/dL (7-18); Bilirubin, Total 0.5 mg/dL (0.2-1.0); CREATININE 1.23 mg/dL (0.70-1.30); Calcium 9.4 mg/dL (8.5-10.1); Chloride 105 mmol/L (98-107); Estimated GFR 58.17 (mL/min/1.73m2); Ferritin 111 ng/mL (8-388); Glucose 120 mg/dL (70-100); Potassium 4.6 mmol/L (3.5-5.1); Sodium 141 mmol/L (136-145); Total Protein 7.6 g/dL (6.4-8.2)
== END 2018-10-10 14:47 ==
PROVIDERS: PCP Internal Medicine; Visit Provider Internal Medicine
DX: D50.9 Iron deficiency anemia, unspecified (principal); R73.9 Hyperglycemia, unspecified; K56.600 Partial intestinal obstruction, unspecified as to cause
CPT/HCPCS: 36415; 80053; 85027; 82728; 83036; 83540; 83550

== ENCOUNTER → 2018-12-19 10:24 | Outpatient (BNVA) | payer MEDICARE, SELFPAY | PROVIDERS: PCP Internal Medicine; Visit Provider Student in an Organized Health Care Education/Training Program | DX: R69 Illness, unspecified (principal) ==

== ENCOUNTER 2018-12-19 11:14 | Outpatient (CLI) | payer MEDICARE, SELFPAY | END 2018-12-19 11:34 | PROVIDERS: PCP Internal Medicine; Visit Provider Student in an Organized Health Care Education/Training Program | DX: I20.9 Angina pectoris, unspecified (principal); I42.9 Cardiomyopathy, unspecified; I48.92 Unspecified atrial flutter; I10 Essential (primary) hypertension | CPT/HCPCS: 36415; 80048; 80076; 85027; 99205; 99215; 83735; 84443; 93005; 93010 ==

== ENCOUNTER 2018-12-19 11:55 | Outpatient (CLI) | payer MEDICARE, SELFPAY ==
[2018-12-19 12:42] LABS: HCT 43.5 % (40.0-50.0); HGB 14.2 g/dL (13.5-17.5); Mean Corp. HGB Concentration 32.6 g/dL (32.0-36.0); Mean Corpuscular Hemoglobin 27.2 pg (27.0-33.0); Mean Corpuscular Volume 83.2 fL (80-95); Mean Platelet Volume 11.2 fL (8.0-11.0); Platelet Count 238 x1000/uL (130-400); RBC 5.23 m/cumm (4.50-6.00); White Blood Cell Count 7.02 k/cumm (4.4-10.8)
[2018-12-19 13:16] LABS: ALT 34 U/L (12-78); AST 33 U/L (15-37); Albumin 4.1 g/dL (3.4-5.0); Alkaline Phosphatase 89 U/L (46-116); Anion Gap 10.7 mmol/L (3-11); BUN 17 mg/dL (7-18); Bilirubin, Direct 0.11 mg/dL (0.00-0.20); Bilirubin, Total 0.4 mg/dL (0.2-1.0); CO2 26.3 mmol/L (21.0-32.0); CREATININE 1.08 mg/dL (0.70-1.30); Calcium 9.8 mg/dL (8.5-10.1); Chloride 104 mmol/L (98-107); Glucose 110 mg/dL (70-100); Magnesium 1.6 mg/dL (1.8-2.4); Potassium 4.6 mmol/L (3.5-5.1); Sodium 141 mmol/L (136-145); Total Protein 7.9 g/dL (6.4-8.2)
== END 2018-12-19 12:15 ==
PROVIDERS: PCP Internal Medicine; Visit Provider Student in an Organized Health Care Education/Training Program
DX: I42.9 Cardiomyopathy, unspecified (principal); I10 Essential (primary) hypertension; I48.92 Unspecified atrial flutter; I20.9 Angina pectoris, unspecified
CPT/HCPCS: 36415; 80048; 80076; 85027; 83735; 84443

== ENCOUNTER 2018-12-24 00:30 | Outpatient (CLI) | payer MEDICARE, SELFPAY ==
--- NOTE | 2018-12-24 07:09 | MERGEMPI_ITS ---
*[facility]* *[facility]* [address] [place] [address] Myocardial Perfusion Imaging - SPECT Regadenoson Date of study: 12/24/2018 *PATIENT PRESENTATION* Height: 1780.5cm (701in) Blood Pressure: Weight: 95.5kg (210lb) BSA: 5.47m^2 Referring physician: Gurvinder Gordillo Ordering physician: Marcus Bautista Impressions: - Normal perfusion by Tc99m Sestamibi Imaging. - Abnormal contraction consistent with cardiomyopathy. Summary: 1. Myocardial perfusion imaging: No myocardial perfusion defects noted. 2. The calculated left ventricular ejection fraction after stress: 34%. LV global systolic function is moderate to severely reduced. There is hypokinesis involving the septal wall(s) of the left ventricle. Recommendations: Correlate EF with echo. Indication: R07.89, I42.9. History: REASON FOR TESTING: PATIENT HAS BEEN HAVING CHEST PRESSURE SINCE APRIL OF 2018. HE DESCRIBES HAVING CHEST PRESSURE MOST OF THE TIME. TODAY HE REPORTS MILD CHEST PRESSURE. SIGNIFICANT PAST MEDICAL HISTORY: CARDIOMYOPATHY, PAROXYSMAL ATRIAL FLUTTER. SMOKING STATUS: QUIT 1978. SMOKED FOR 20 YEARS, ONE PPD HISTORY. EXERCISE ROUTINE: NO DAILY EXERCISE. PMH: Asthma. Risk factors: Family history of coronary artery disease. Hypertension. Dyslipidemia. Cholesterol: 197mg/dl. HDL: 55mg/dl. LDL: 129mg/dl. Triglycerides: 73mg/dl. ALLERGIES: INFLUENZA VIRUS VACCINE, PRAVASTATIN. MEDICATIONS: ACETAMINOPHEN/CODEINE PRN, AMLODIPINE 5 MG DAILY, NEXIUM 40 MG DAILY, FLUTICASONE NASAL SPRAY DAILY, LISINOPRIL 20 MG DAILY, METOPROLOL SUCCINATE 50 MG DAILY, POLYETHYLENE GLYCOL 17 GM DAILY, TRAMADOL 40 MG PRN. Imaging Technique: Protocol: Regadenoson. Acquisition: Gated SPECT; 1 day - rest/stress. The patient was imaged in the supine position. Attenuation correction used. Isotope administration: - Rest. Tc[99m]-sestamibi. Dose: 10.3mCi. Injection time: 09:20 AM. Injection to stress time: 00:45. - Stress. Tc[99m]-sestamibi. Dose: 31.7mCi. Injection time: 11:47 AM. 1-2 min before end of exercise Baseline ECG: FIRST DEGREE HEART BLOCK. HR 84. LEFT BBB. Stress protocol: +--------+---+ + + !Stage !HR !BP (mmHg) !Comments ! +--------+---+ + + !Baseline!84 !160/96 (117)! ! +--------+---+ + + !1 min !108!170/70 (103)!Inject Regadenoson.! +--------+---+ + + !3 min !103!150/80 (103)! ! +--------+---+ + + !6 min !99 !170/90 (117)! ! +--------+---+ + + * Stress results: LEXISCAN STRESS TEST ENDED IN 7 MINUTES 4 SECONDS. NORMAL HEART RATE AND BLOOD PRESSURE RESPONSE TO LEXISCAN INJECTION. FREQUENT PVC'S THROUGHOUT TEST, WITH OCCASIONAL VENTRICULAR COUPLETS. CHEST PRESSURE 1 MINUTES POST LEXISCAN INJECTION. CHEST JABBING PAIN AT 3 MINUTES POST LEXISCAN INJECTION. CHEST PRESSURE/JABBING SUBSIDED BY 7 MINUTES POST LEXISCAN INJECTION. LEFT BBB AT BASELINE, DIFFICULT TO ASSESS ANY ST SEGMENT CHANGES. The rate-pressure product for the peak heart rate and blood pressure was 18533sc Hg/min. Myocardial perfusion: Imaging information: gated. Left ventricular size is normal. No myocardial perfusion defects noted. Ventricular Function (Wall Motion): The calculated left ventricular ejection fraction after stress: 34%. LV global systolic function is moderate to severely reduced. There is hypokinesis involving the septal wall(s) of the left ventricle. Study data: Gurvinder Gordillo MD supervised and was readily available during the procedure. This study was interpreted by [facility]. Study status: Routine. Consent: The risks, benefits, and alternatives to the procedure were explained to the patient and informed consent was obtained. Procedure: Initial setup. A baseline ECG was recorded. Surface ECG leads and manual cuff blood pressure measurements were monitored. Heart sounds: Normal. Lung sounds: Normal. Regadenoson stress test. Stress testing was performed, with regadenoson by intravenous bolus, for a total dose of 0.4mgover 10.00sec, followed by a 5ml saline flush. The infusion was terminated due to per protocol. The patient was unable to exercise due to left bundle branch block. The patient was unable to exercise due to BKA. Study completion: All catheters inserted during the procedure were removed. The patient tolerated the procedure well and was discharged from the lab. Discharge: The patient left the laboratory in stable condition. Birthdate: Patient birthdate: 1950. Sex: Gender: male. Study date: Study date: 12/24/2018. Study time: 00:01 AM. Signature Documentation: - The imaging portion of this study was interpreted by Nuclear Asbestos Brake Lining Finisher Gurvinder Gordillo MD. - The imaging portion of this study was interpreted by Nuclear Radiologist Sean Chinchilla MD. - The Stress ECG portion of this study was interpreted by Gurvinder Gordillo MD. Electronically signed by Gurvinder Gordillo 12/24/2018 15:07
[2018-12-24] MEDS: Regadenoson 0.4 MG/5 ML SYR IVP (12:31)
== END 2018-12-24 00:50 ==
PROVIDERS: PCP Internal Medicine; Visit Provider Student in an Organized Health Care Education/Training Program
DX: R07.89 Other chest pain (principal); I42.9 Cardiomyopathy, unspecified; I48.0 Paroxysmal atrial fibrillation; I10 Essential (primary) hypertension; E78.5 Hyperlipidemia, unspecified; Z87.891 Personal history of nicotine dependence; Z82.49 Family history of ischemic heart disease and other diseases of the circulatory system
CPT/HCPCS: 78452; 93016; 93018; 93017; J2785

== ENCOUNTER → 2018-12-26 13:39 | Outpatient (BNVA) | payer MEDICARE, SELFPAY | PROVIDERS: PCP Internal Medicine; Visit Provider Student in an Organized Health Care Education/Training Program | DX: I20.8 Other forms of angina pectoris (principal); I42.9 Cardiomyopathy, unspecified; I48.0 Paroxysmal atrial fibrillation; I10 Essential (primary) hypertension | CPT/HCPCS: 99214 ==

== ENCOUNTER 2018-12-26 18:37 | Observation (INO) | payer MEDICARE, SELFPAY ==
[2018-12-26] VITALS (43 sets, daily range): BP systolic 150–198; BP diastolic 72–91; PULSE 64–96; RESP 11–27; TEMP 36.9; O2SAT 92–100
[2018-12-26] MEDS: Normal Saline Flush 10 ML SYR IVP (19:10)
[2018-12-26] MEDS: Aspirin 81 MG CHEW (19:29)
[2018-12-26 19:34] LABS: Abs Immature Grans 0.01 k/cumm (0.0-0.09); Absolute Basophil Count 0.03 k/cumm (0.0-0.2); Absolute Eosinophil Count 0.07 k/cumm (0.0-0.7); Absolute Monocyte Count 0.79 k/cumm (0.11-0.7); Basophils % 0.4; Eosinophils % 0.8; HCT 41.2 % (40.0-50.0); HGB 13.7 g/dL (13.5-17.5); Immature Grans % 0.1; Lymphocytes % 16.9; Mean Corp. HGB Concentration 33.3 g/dL (32.0-36.0); Mean Corpuscular Hemoglobin 27.7 pg (27.0-33.0); Mean Corpuscular Volume 83.2 fL (80-95); Mean Platelet Volume 11.2 fL (8.0-11.0); Monocytes % 9.5; Neutrophils % 72.3; Platelet Count 234 x1000/uL (130-400); RBC 4.95 m/cumm (4.50-6.00); RBC Distribution Width 14.6 % (11.8-14.1)
[2018-12-26] MEDS: Metoprolol 50 MG TAB (19:38)
[2018-12-26 19:50] LABS: PTT Activated 23.8 sec (21.0-31.4); Prothrombin Time 9.9 sec (9.3-11.0)
--- NOTE | 2018-12-26 19:54 | DI.RAD_ITS ---
SYMPTOM/DIAGNOSIS: CHEST PAIN PA AND LATERAL CHEST: The heart is normal in size. The lungs are clear. The mediastinal structures and pleura appear intact. CONCLUSION: Normal chest.
[2018-12-26 19:55] LABS: ALT 25 U/L (12-78); AST 22 U/L (15-37); Albumin 3.7 g/dL (3.4-5.0); Alkaline Phosphatase 90 U/L (46-116); Anion Gap 7.5 mmol/L (3-11); BUN 21 mg/dL (7-18); Bilirubin, Total 0.2 mg/dL (0.2-1.0); CO2 28.5 mmol/L (21.0-32.0); CREATININE 1.14 mg/dL (0.70-1.30); Chloride 103 mmol/L (98-107); Glucose 132 mg/dL (70-100); Magnesium 1.8 mg/dL (1.8-2.4); NT-proBNP 641 pg/mL; Potassium 4.1 mmol/L (3.5-5.1); Sodium 139 mmol/L (136-145); Total Protein 7.9 g/dL (6.4-8.2)
[2018-12-26 19:56] LABS: Troponin I < 0.02 ng/mL (0.00-0.06)
--- NOTE | 2018-12-26 20:19 | DI.VRAD_ITS ---
EXAM: XR Chest, 2 Views EXAM DATE/TIME: 12/26/2018 7:55 PM CLINICAL HISTORY: 68 years old, male; Pain; Chest pain; Type not specified TECHNIQUE: XR of the chest, 2 views. COMPARISON: SC XR line placement PICC/CVA 07/19/2018 2:02 AM FINDINGS: Lungs: Surgical clips project superior to the right lung apex. Pleural space: Unremarkable. No pleural effusion. No pneumothorax. Heart/Mediastinum: Unremarkable. No cardiomegaly. Bones/joints: Multilevel degenerative changes of the thoracic spine are noted. No acute skeletal abnormality. IMPRESSION: Negative for acute thoracic pathology. Dictated and Authenticated by: Jim Ricketts MD. Ordering:ELICEO Sweeney MD
--- NOTE | 2018-12-26 21:12 | ED.GENADUL_ITS ---
Discharge Plan Disposition Patient Disposition: [facility] INPATIENT Condition: Stable Discharge Details Chief Complaint: Chest Pain Clinical Impression: Angina pectoris, unstable Primary Care Provider: Yoko Esqueda ED Provider: Shahriar Vyas Home Meds and New Rx's Prescriptions: No Action fluticasone 50 mcg/actuation spray,suspension 2 spray NS DAILY Qty: 3 RF: 3 metoprolol succinate 50 mg tablet extended release 24 hr 50 mg PO DAILY Qty: 90 RF: 3 amlodipine 10 mg tablet 10 mg PO DAILY Qty: 90 RF: 3 OneTouch Ultra Test 1 EACH strip 1 strip Miscellaneous DAILY Qty: 100 RF: 4 lancets [OneTouch Delica Lancets] 1 EACH misc 1 ea Intradermal DAILY Qty: 100 RF: 4 lisinopril 20 mg tablet 20 mg PO DAILY Qty: 90 RF: 3 esomeprazole magnesium [Nexium] 40 mg capsule,delayed release(DR/EC) 40 mg PO DAILY Qty: 90 RF: 3 Proventil HFA 90 mcg/actuation HFA aerosol inhaler 2 puff Inhalation QID PRN (Reason: shortness of breath or wheezing) Qty: 1 RF: 4 acetaminophen-codeine [Tylenol-Codeine #4] 300-60 mg tablet 1 tab PO TID Qty: 90 RF: 0 tramadol 50 mg tablet 50 mg PO QID PRN (Reason: pain) Qty: 60 RF: 0 polyethylene glycol 3350 17 gram powder in packet 17 gm PO DAILY PRNRF: 0 Medical Decision Making <Patel Nicole NP - Last Filed: 12/27/18 00:07> Patient reports approximately 2 hours prior to arrival he was sitting in a chair reading when he began having significant chest pressure, near syncope, and flushness to his face. He states this persisted causing him to have his bring him to the emergency department just prior to arrival to the emergency department he states that the chest pressure seemed to let up but is still present. He states some mild nausea which is also resolved. Patient denies any focal weakness, headache, numbness or tingling. Physical exam is nondiagnostic except for noting some generalized weakness. Concern for ACS versus arrhythmia. Stat EKG performed and reviewed with Dr. Santos. Shows left bundle branch block with elevation in V2 V3 V4 that is been present on previous EKGs. Patient states recent stress test and perfusion testing and was recommended during today's visit with cardiology for cardiac catheterization at [facility] next week. Pending results patient given his nightly metoprolol which he normally takes but has not had yet along with 324mg of aspirin Initial labs were reviewed and show no significant electrolyte abnormalities, negative troponin, no worrisome findings on CBC. Patient also has negative chest x-ray. Pending second troponin I spoke with [facility] Cardiology Dr. May. After extensive review of previous EKGs recent stress test labs and patient condition, which is improving, she does not feel that this is an acute STEMI but patient would benefit from cardiac catheterization. She did recommend that if patient has elevated troponin or become symptomatic for patient to receive 300 of Plavix along with heparin drip and to consult them on a emergent basis. Otherwise she did recommend patient to receive morning echo, EKG in the a.m. as long as asymptomatic, q. 6-hour troponins, and for provider to call back tomorrow [facility] for arrangement of transportation and accepting physician. Patient was informed that [facility] would not be able to accept patient this evening and that we had no beds at [facility] which [facility] was also aware of. Patient is agreeable along with Dr. Ken to continue to observe patient in emergency department pending transfer to [facility] cardiology. Second troponin was reviewed. Pending further observation and repeat troponins patient was signed out to Dr. Ken. Patient in stable condition with no active symptoms currently. Lab Data Lab results reviewed: Yes I reviewed the patient's lab results. ECG Data Attestation: I personally reviewed and interpreted this ECG (s) as follows: Prior ECG tracings: available for review Interpretation: Sinus rhythm, rate of 85, findings consistent with left bundle branch block that does not seem to be significantly changed from previous EKG. <Shahriar Vyas MD - Last Filed: 12/27/18 17:11> ECG Data Attestation: I personally reviewed and interpreted this ECG (s) as follows: Prior ECG tracings: available for review Interpretation: ekg on 12/27/18 at 1706 shows rate of 102, pr 200, pvc's, no acute st t wave ischemic findings HPI <Patel Nicole NP - Last Filed: 12/27/18 00:07> General Date/Time Provider Initiated Documentation: 12/26/18 19:04 . Limitations to Documentation: no limitations . Information obtained by: patient, family and RN notes reviewed . History of Present Illness 68 year old M presents to the emergency department with the chief complaint of Chest pain, near sink, described as moderate, with intensity rated at 5. Quality is described as other (Pressure), and is localized to the chest. Patient neck. Patient started experiencing this hour(s) (2) and it has been constant. No relieving factors improve symptom(s), No exacerbating factors reported . Patient notes no other symptoms.. Patient did receive the following treatments prior to arrival, none Related Data Home Medications Medication Instructions Recorded Confirmed [place] [employer] Ultra Test #100 strip 02/05/13 12/26/18 lancets [OneTouch Delica Lancets] #100 ea 02/05/13 12/26/18 fluticasone 50 mcg/actuation nasal 2 spray NS DAILY #3 gm 08/23/18 12/26/18 spray,suspension acetaminophen 300 mg-codeine 60 mg 1 tab PO TID #90 tab 11/23/18 12/26/18 tablet albuterol sulfate HFA 90 2 puff INHALATION QID PRN #1 11/23/18 12/26/18 mcg/actuation aerosol inhaler inhaler esomeprazole magnesium 40 mg 40 mg PO DAILY #90 tab-cap 11/23/18 12/26/18 capsule,delayed release lisinopril 20 mg tablet 20 mg PO DAILY #90 tab-cap 11/23/18 12/26/18 tramadol 50 mg tablet 50 mg PO QID PRN #60 tab 11/23/18 12/26/18 amlodipine 10 mg tablet 10 mg PO DAILY #90 tab 12/26/18 12/26/18 metoprolol succinate ER 50 mg 50 mg PO DAILY #90 tab 12/26/18 12/26/18 tablet,extended release 24 hr polyethylene glycol 3350 17 gm PO DAILY PRN 12/26/18 12/26/18 Previous Rx's Medication Instructions Recorded fluticasone 50 mcg/actuation nasal 2 spray NS DAILY #3 gm 08/23/18 spray,suspension acetaminophen 300 mg-codeine 60 mg 1 tab PO TID #90 tab 11/23/18 tablet albuterol sulfate HFA 90 2 puff INHALATION QID PRN #1 11/23/18 mcg/actuation aerosol inhaler inhaler esomeprazole magnesium 40 mg 40 mg PO DAILY #90 tab-cap 11/23/18 capsule,delayed release lisinopril 20 mg tablet 20 mg PO DAILY #90 tab-cap 11/23/18 tramadol 50 mg tablet 50 mg PO QID PRN #60 tab 11/23/18 amlodipine 10 mg tablet 10 mg PO DAILY #90 tab 12/26/18 metoprolol succinate ER 50 mg 50 mg PO DAILY #90 tab 12/26/18 tablet,extended release 24 hr Allergies Allergy/AdvReac Type Severity Reaction Status Date / Time Influenza Virus Vaccines Allergy Severe ? allergic Unverified 12/26/18 19:25 reaction to flu vaccine pravastatin AdvReac Intermediate Muscle and Unverified 12/26/18 19:25 joint pain General Stated Complaint: Chest Pain BRENT: 2 Review of Systems <Patel Nicole NP - Last Filed: 12/27/18 00:07> Constitutional Denies chills, Denies fever(s), Reports malaise and Reports weakness Cardiovascular Reports as per HPI, Reports chest pain, Reports chest pain at rest, Reports diaphoresis, Denies syncope, Denies irregular heart rhythm, Denies palpitations and Denies dyspnea Respiratory Denies cough, Denies hemoptysis and Denies dyspnea Gastrointestinal Denies abdominal pain, Denies nausea and Denies vomiting Neurologic Denies syncope and Reports weakness Psychiatric Denies anxiety Endocrine Denies cold intolerance, Denies heat intolerance and Denies palpitations PFSH <Patel Nicole NP - Last Filed: 12/27/18 00:07> Medical History Actinic keratosis Asthma BPH (benign prostatic hyperplasia) Carpal tunnel syndrome Chronic pain syndrome Depression GERD (gastroesophageal reflux disease) Hearing loss Hypercholesterolemia Hypertension Tubular adenoma of colon Surgical History BACK/NECK SURGERY Colonoscopy - MAC EGD - MAC (05/14/18) left below knee amputation Social History household members: significant other Smoking and Tabacco status: Former Tobacco Use alcohol intake: current alcohol intake frequency: a few times a month substance use type: does not use Exam <Patel Nicole NP - Last Filed: 12/27/18 00:07> Const General: cooperative, healthy appearing, comfortable, no acute distress, not diaphoretic and not ill appearing Nutritional Appearance: average body habitus Orientation: alert, awake and oriented x3 Limitations: mental status not altered Neck Neck: normal visual inspection, full ROM, trachea midline, supple and no anterior neck swelling Thyroid: thyroid normal Carotids: normal carotid upstroke and no bruits Chest Chest: normal inspection of the chest Resp Effort & Inspection: normal respiratory effort and able to speak in complete sentences Auscultation: clear to auscultation bilaterally Cardio Jugular venous pressure: no JVD Palpation: normal PMI Rate: regular rate Rhythm: regular rhythm Heart Sounds: S1 normal, S2 normal, no click, no gallops, no murmurs and no rubs Bruits: no abdominal aortic bruits and no carotid bruits Pulses: radial pulses present bilaterally 3+ GI Inspection: normal to inspection Palpation: soft, no aortic enlargement, no pulsatile masses and nontender Auscultation: normal bowel sounds Skin General skin exam: no rashes or lesions noted Neuro General: alert, awake, oriented x3, tone normal and moves all extremities Course <Patel Nicole NP - Last Filed: 12/27/18 00:07> Vital Signs Pulse 79 12/26/18 19:01 Respiratory Rate 15 12/26/18 19:01 Blood Pressure 183/82 H 12/26/18 19:01 Pulse Oximetry 97 12/26/18 19:01 Temperature 36.9 C 12/26/18 19:02 Temperature Source Skin 12/26/18 19:02 Pulse 77 12/26/18 20:31 Pulse 74 12/26/18 20:40 Respiratory Rate 14 12/26/18 20:40 Respiratory Effort Non-Labored 12/26/18 20:46 Blood Pressure 154/77 H 12/26/18 20:31 Blood Pressure Mean 94 12/26/18 20:31 Blood Pressure Position Sitting 12/26/18 19:02 Pulse Oximetry 97 12/26/18 20:40 Oxygen Delivery Method Room Air 12/26/18 19:02 Oxygen Flow Rate 0 12/26/18 19:02 Pain Level 5 12/26/18 19:02 Comment 12/26/18 19:02 Lab/Test Results Lab/Test Results: Laboratory Tests Range/Units 12/26/18 12/26/18 12/26/18 19:10 19:10 19:10 WBC (4.4-10.8) k/cumm 8.30 RBC (4.50-6.00) m/cumm 4.95 Hgb (13.5-17.5) g/dL 13.7 Hct (40.0-50.0) % 41.2 MCV (80-95) fL 83.2 MCH (27.0-33.0) pg 27.7 MCHC (32.0-36.0) g/dL 33.3 RDW (11.8-14.1) % 14.6 H Plt Count (130-400) x1000/uL 234 MPV (8.0-11.0) fL 11.2 H Immature Gran % 0.1 Neutrophils % 72.3 Lymphocytes % 16.9 Monocytes % 9.5 Eosinophils % 0.8 Basophils % 0.4 Absolute Neutrophils (1.2-6.7) k/cumm 6.00 Absolute Lymphocytes (1.2-3.4) k/cumm 1.40 Absolute Monocytes (0.11-0.7) k/cumm 0.79 H Absolute Eosinophils (0.0-0.7) k/cumm 0.07 Absolute Basophils (0.0-0.2) k/cumm 0.03 PT (9.3-11.0) sec 9.9 INR (0.9-1.1) 1.0 APTT (21.0-31.4) sec 23.8 Sodium (136-145) mmol/L 139 Potassium (3.5-5.1) mmol/L 4.1 Chloride (98-107) mmol/L 103 Carbon Dioxide (21.0-32.0) mmol/L 28.5 Anion Gap (3-11) mmol/L 7.5 BUN (7-18) mg/dL 21 H Creatinine (0.70-1.30) mg/dL 1.14 Estimated GFR/1.73 m2 (mL/min/1.73m2) >= 60.00 Glucose (70-100) mg/dL 132 H Calcium (8.5-10.1) mg/dL 9.0 Magnesium (1.8-2.4) mg/dL 1.8 Total Bilirubin (0.2-1.0) mg/dL 0.2 AST (15-37) U/L 22 ALT (12-78) U/L 25 Alkaline Phosphatase (46-116) U/L 90 Troponin I (0.00-0.06) ng/mL < 0.02 NT-Pro-B Natriuret Pep ( - 299) pg/mL 641 H Total Protein (6.4-8.2) g/dL 7.9 Albumin (3.4-5.0) g/dL 3.7 Sign Out <Patel Nicole NP - Last Filed: 12/27/18 00:07> Sign Out Data: Sign Out Comment: Patient signed out to Dr. Ken pending further observation, repeat troponins, any interventions as needed and disposition with plan of care for patient to be transferred to [facility] cardiology team for cardiac catheterization tomorrow. Last updated by Patel Nicole NP at 12/27/18 00:00 Sign Out Comment: Followup transfer to [facility] Last updated by Schuyler Ken MD at 12/27/18 07:42 Post-Handoff Eval: pt pending transfer to [facility], remains stable here. [facility] expects a bed to likely open today and accepting provider is Dr. Melendez. Will remain in ED until bed opens up and if none today and bed opens up here will admit patient remains well, [facility] [place] today but likely tomorrow, will admit here on tele until bed becomes avaiable for his catherization
[2018-12-26 23:29] LABS: Troponin I < 0.02 ng/mL (0.00-0.06)
[2018-12-26] MEDS: amLODIPine 10 MG TAB PO (23:36)
[2018-12-26] MEDS: Esomeprazole 40 MG CAPCR PO (23:36)
[2018-12-27] VITALS (212 sets, daily range): BP systolic 111–168; BP diastolic 58–114; PULSE 52–133; RESP 10–33; TEMP 36.6; O2SAT 92–100
--- NOTE | 2018-12-27 02:24 | NUR.NOTE ---
Nursing Note: Pt awake and complaining of pain, has chronic pain and takes Tylenol #4 at home. Has not had any pain medications today. Pt medicated with 2 tabs of Tylenol #3, resting quietly at this time.
[2018-12-27 05:38] LABS: Troponin I < 0.02 ng/mL (0.00-0.06)
--- NOTE | 2018-12-27 05:48 | W.ED.GENAD ---
Discharge Plan Disposition Patient Disposition: [facility] INPATIENT Condition: Stable Discharge Details Chief Complaint: Chest Pain Clinical Impression: Angina pectoris, unstable Primary Care Provider: Yoko Esqueda ED Provider: Shahriar Vyas Home Meds and New Rx's Prescriptions: No Action fluticasone 50 mcg/actuation spray,suspension 2 spray NS DAILY Qty: 3 RF: 3 metoprolol succinate 50 mg tablet extended release 24 hr 50 mg PO DAILY Qty: 90 RF: 3 amlodipine 10 mg tablet 10 mg PO DAILY Qty: 90 RF: 3 OneTouch Ultra Test 1 EACH strip 1 strip Miscellaneous DAILY Qty: 100 RF: 4 lancets [OneTouch Delica Lancets] 1 EACH misc 1 ea Intradermal DAILY Qty: 100 RF: 4 lisinopril 20 mg tablet 20 mg PO DAILY Qty: 90 RF: 3 esomeprazole magnesium [Nexium] 40 mg capsule,delayed release(DR/EC) 40 mg PO DAILY Qty: 90 RF: 3 Proventil HFA 90 mcg/actuation HFA aerosol inhaler 2 puff Inhalation QID PRN (Reason: shortness of breath or wheezing) Qty: 1 RF: 4 acetaminophen-codeine [Tylenol-Codeine #4] 300-60 mg tablet 1 tab PO TID Qty: 90 RF: 0 tramadol 50 mg tablet 50 mg PO QID PRN (Reason: pain) Qty: 60 RF: 0 polyethylene glycol 3350 17 gram powder in packet 17 gm PO DAILY PRNRF: 0 Medical Decision Making <Schuyler Ken MD - Last Filed: 12/27/18 05:50> Received signout from Mr. Nicole. Please see his note regarding details of the history, presentation, plan of care. 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 He will be signed out to Dr. Vyas pending final disposition to [facility] as per the previous plan. HPI <Schuyler Ken MD - Last Filed: 12/27/18 05:50> General Date/Time Provider Initiated Documentation: 12/26/18 19:04. Limitations to Documentation: no limitations. Information obtained by: patient, family and RN notes reviewed. History of Present Illness with intensity rated at 5. Quality is described as other (Pressure), and is localized to the chest. No relieving factors improve symptom(s), No exacerbating factors reported . Patient notes no other symptoms.. Patient did receive the following treatments prior to arrival, none Related Data Home Medications Medication Instructions Recorded Confirmed OneTouch Ultra Test #100 strip 02/05/13 12/26/18 lancets [OneTouch Delica Lancets] #100 ea 02/05/13 12/26/18 fluticasone 50 mcg/actuation nasal 2 spray NS DAILY #3 gm 08/23/18 12/26/18 spray,suspension acetaminophen 300 mg-codeine 60 mg 1 tab PO TID #90 tab 11/23/18 12/26/18 tablet albuterol sulfate HFA 90 2 puff INHALATION QID PRN #1 11/23/18 12/26/18 mcg/actuation aerosol inhaler inhaler esomeprazole magnesium 40 mg 40 mg PO DAILY #90 tab-cap 11/23/18 12/26/18 capsule,delayed release lisinopril 20 mg tablet 20 mg PO DAILY #90 tab-cap 11/23/18 12/26/18 tramadol 50 mg tablet 50 mg PO QID PRN #60 tab 11/23/18 12/26/18 amlodipine 10 mg tablet 10 mg PO DAILY #90 tab 12/26/18 12/26/18 metoprolol succinate ER 50 mg 50 mg PO DAILY #90 tab 12/26/18 12/26/18 tablet,extended release 24 hr polyethylene glycol 3350 17 gm PO DAILY PRN 12/26/18 12/26/18 Previous Rx's Medication Instructions Recorded fluticasone 50 mcg/actuation nasal 2 spray NS DAILY #3 gm 08/23/18 spray,suspension acetaminophen 300 mg-codeine 60 mg 1 tab PO TID #90 tab 11/23/18 tablet albuterol sulfate HFA 90 2 puff INHALATION QID PRN #1 11/23/18 mcg/actuation aerosol inhaler inhaler esomeprazole magnesium 40 mg 40 mg PO DAILY #90 tab-cap 11/23/18 capsule,delayed release lisinopril 20 mg tablet 20 mg PO DAILY #90 tab-cap 11/23/18 tramadol 50 mg tablet 50 mg PO QID PRN #60 tab 11/23/18 amlodipine 10 mg tablet 10 mg PO DAILY #90 tab 12/26/18 metoprolol succinate ER 50 mg 50 mg PO DAILY #90 tab 12/26/18 tablet,extended release 24 hr Allergies Allergy/AdvReac Type Severity Reaction Status Date / Time Influenza Virus Vaccines Allergy Severe ? allergic Unverified 12/26/18 19:25 reaction to flu vaccine pravastatin AdvReac Intermediate Muscle and Unverified 12/26/18 19:25 joint pain General Stated Complaint: Chest Pain BRENT: 2 PFSH <Schuyler Ken MD - Last Filed: 12/27/18 05:50> Medical History Actinic keratosis Asthma BPH (benign prostatic hyperplasia) Carpal tunnel syndrome Chronic pain syndrome Depression GERD (gastroesophageal reflux disease) Hearing loss Hypercholesterolemia Hypertension Tubular adenoma of colon Surgical History BACK/NECK SURGERY Colonoscopy - MAC EGD - MAC (05/14/18) left below knee amputation Social History household members: significant other Smoking and Tabacco status: Former Tobacco Use alcohol intake: current alcohol intake frequency: a few times a month substance use type: does not use Course <Schuyler Ken MD - Last Filed: 12/27/18 05:50> Vital Signs Pulse 79 12/26/18 19:01 Respiratory Rate 15 12/26/18 19:01 Blood Pressure 183/82 H 12/26/18 19:01 Pulse Oximetry 97 12/26/18 19:01 Temperature 36.9 C 12/26/18 19:02 Temperature Source Skin 12/26/18 19:02 Pulse 57 L 12/27/18 04:01 Pulse 57 L 12/27/18 04:20 Respiratory Rate 15 12/27/18 04:20 Respiratory Effort Non-Labored 12/26/18 20:46 Respiratory Depth Normal 12/26/18 19:15 Respiratory Pattern Normal 12/26/18 19:15 Blood Pressure 120/58 L 12/27/18 04:01 Blood Pressure Mean 75 12/27/18 04:01 Blood Pressure Position Sitting 12/26/18 19:02 Pulse Oximetry 96 12/27/18 04:20 Oxygen Delivery Method Room Air 12/26/18 19:02 Oxygen Flow Rate 0 12/26/18 19:02 Pain Level 5 12/26/18 19:02 Comment 12/26/18 19:02 Lab/Test Results Lab/Test Results: Laboratory Tests Range/Units 12/26/18 12/26/18 12/26/18 19:10 19:10 19:10 WBC (4.4-10.8) k/cumm 8.30 RBC (4.50-6.00) m/cumm 4.95 Hgb (13.5-17.5) g/dL 13.7 Hct (40.0-50.0) % 41.2 MCV (80-95) fL 83.2 MCH (27.0-33.0) pg 27.7 MCHC (32.0-36.0) g/dL 33.3 RDW (11.8-14.1) % 14.6 H Plt Count (130-400) x1000/uL 234 MPV (8.0-11.0) fL 11.2 H Immature Gran % 0.1 Neutrophils % 72.3 Lymphocytes % 16.9 Monocytes % 9.5 Eosinophils % 0.8 Basophils % 0.4 Absolute Neutrophils (1.2-6.7) k/cumm 6.00 Absolute Lymphocytes (1.2-3.4) k/cumm 1.40 Absolute Monocytes (0.11-0.7) k/cumm 0.79 H Absolute Eosinophils (0.0-0.7) k/cumm 0.07 Absolute Basophils (0.0-0.2) k/cumm 0.03 PT (9.3-11.0) sec 9.9 INR (0.9-1.1) 1.0 APTT (21.0-31.4) sec 23.8 Sodium (136-145) mmol/L 139 Potassium (3.5-5.1) mmol/L 4.1 Chloride (98-107) mmol/L 103 Carbon Dioxide (21.0-32.0) mmol/L 28.5 Anion Gap (3-11) mmol/L 7.5 BUN (7-18) mg/dL 21 H Creatinine (0.70-1.30) mg/dL 1.14 Estimated GFR/1.73 m2 (mL/min/1.73m2) >= 60.00 Glucose (70-100) mg/dL 132 H Calcium (8.5-10.1) mg/dL 9.0 Magnesium (1.8-2.4) mg/dL 1.8 Total Bilirubin (0.2-1.0) mg/dL 0.2 AST (15-37) U/L 22 ALT (12-78) U/L 25 Alkaline Phosphatase (46-116) U/L 90 Troponin I (0.00-0.06) ng/mL < 0.02 NT-Pro-B Natriuret Pep ( - 299) pg/mL 641 H Total Protein (6.4-8.2) g/dL 7.9 Albumin (3.4-5.0) g/dL 3.7 Range/Units 12/26/18 12/26/18 12/27/18 22:07 23:09 05:15 WBC (4.4-10.8) k/cumm RBC (4.50-6.00) m/cumm Hgb (13.5-17.5) g/dL Hct (40.0-50.0) % MCV (80-95) fL MCH (27.0-33.0) pg MCHC (32.0-36.0) g/dL RDW (11.8-14.1) % Plt Count (130-400) x1000/uL MPV (8.0-11.0) fL Immature Gran % Neutrophils % Lymphocytes % Monocytes % Eosinophils % Basophils % Absolute Neutrophils (1.2-6.7) k/cumm Absolute Lymphocytes (1.2-3.4) k/cumm Absolute Monocytes (0.11-0.7) k/cumm Absolute Eosinophils (0.0-0.7) k/cumm Absolute Basophils (0.0-0.2) k/cumm PT (9.3-11.0) sec INR (0.9-1.1) APTT (21.0-31.4) sec Sodium (136-145) mmol/L Potassium (3.5-5.1) mmol/L Chloride (98-107) mmol/L Carbon Dioxide (21.0-32.0) mmol/L Anion Gap (3-11) mmol/L BUN (7-18) mg/dL Creatinine (0.70-1.30) mg/dL Estimated GFR/1.73 m2 (mL/min/1.73m2) Glucose (70-100) mg/dL Calcium (8.5-10.1) mg/dL Magnesium (1.8-2.4) mg/dL Total Bilirubin (0.2-1.0) mg/dL AST (15-37) U/L ALT (12-78) U/L Alkaline Phosphatase (46-116) U/L Troponin I (0.00-0.06) ng/mL Cancelled < 0.02 < 0.02 NT-Pro-B Natriuret Pep ( - 299) pg/mL Total Protein (6.4-8.2) g/dL Albumin (3.4-5.0) g/dL Sign Out <Schuyler Ken MD - Last Filed: 12/27/18 05:50> Sign Out Data: Sign Out Comment: Patient signed out to Dr. Ken pending further observation, repeat troponins, any interventions as needed and disposition with plan of care for patient to be transferred to [facility] cardiology team for cardiac catheterization tomorrow. Last updated by Patel Nicole NP at 12/27/18 00:00 Sign Out Comment: Followup transfer [place] [facility] [place] Last updated by Schuyler Ken MD at 12/27/18 07:42 Post-Handoff Eval: pt pending transfer to [facility] [place], remains stable here. [facility] expects a bed to likely open today and accepting provider is Dr. Melendez. Will remain in ED until bed opens up and if none today and bed opens up here will admit patient remains well, [facility] [place] today but likely tomorrow, will admit here on tele until bed becomes avaiable for his catherization
--- NOTE | 2018-12-27 08:45 | MERGE_ITS ---
*[facility]* *[facility]* [address] [place] [address] Date of study: 12/27/2018 Transthoracic Echocardiography M-mode, complete 2D, complete spectral Doppler, and color Doppler *STUDY CONCLUSIONS* Summary: 1. Left ventricle: The cavity size was normal. Wall thickness was increased in a pattern of mild LVH. Systolic function was mildly reduced. The estimated ejection fraction was 45-50%. Hypokinesis of the inferior and inferoseptal myocardium. 2. Right ventricle: The cavity size was normal. Systolic function was normal. 3. Ventricular septum: Septal motion showed paradoxical motion consistent with Bundle Branch Block. 4. Left atrium: The atrium was mildly dilated. 5. Inferior vena cava: The vessel was normal in size. The respirophasic diameter changes were in the normal range (greater than or equal to 50%), consistent with normal central venous pressure. *PATIENT PRESENTATION* Height: 177.8cm ((70in) ) S/D Pressure: 125 / 65 Weight: 98kg ((215.5lb) ) BSA: 2.23m^2 Test start time: 09:00 AM. Test stop time: 10:00 AM. PERFORMING Unknown PERFORMING Nv CONSULTING Yoko Esqueda [employer] Whit Matos RT (R)(CT), [facility] ORDERING Patel Nicole REFERRING Patel Nicole *PROCEDURE DATA* Procedure information: The patient was identified by two identifiers. This study was interpreted by [facility]. Pertinent images and digital data are archived for permanent storage and are available for subsequent review. Comparison was made to the study of 05/09/2018. Study status: STAT. Transthoracic echocardiography. M-mode, complete 2D, complete spectral Doppler, and color Doppler. A Transthoracic Echocardiogram was performed. Scanning was performed from the parasternal, apical, subcostal, and suprasternal notch acoustic windows. Images were obtained using an [id number] cardiac ultrasound machine. Image quality was adequate. Study completion: The patient tolerated the procedure well. There were no complications. History: PMH: Chest pain. *CARDIAC ANATOMY* Left ventricle: The cavity size was normal. Wall thickness was increased in a pattern of mild LVH. Systolic function was mildly reduced. The estimated ejection fraction was 45-50%. Regional wall motion abnormalities: Hypokinesis of the inferior and inferoseptal myocardium. Findings consistent with diastolic dysfunction. There was no evidence of elevated ventricular filling pressure by Doppler parameters. Aortic valve: Trileaflet; normal thickness leaflets. Mobility was not restricted. Doppler: Transvalvular velocity was within the normal range. There was no stenosis. There was no significant regurgitation. VTI ratio of LVOT to aortic valve: 0.83. Valve area (VTI): 3.1cm^2. Indexed valve area (VTI): 1.4cm^2/m^2. Peak velocity ratio of LVOT to aortic valve: 0.73. Valve area (Vmax): 2.7cm^2. Indexed valve area (Vmax): 1.2cm^2/m^2. Mean velocity ratio of LVOT to aortic valve: 0.74. Valve area (Vmean): 2.7cm^2. Indexed valve area (Vmean): 1.2cm^2/m^2. Mean gradient (S): 3.4mm Hg. Peak gradient (S): 6mm Hg. Aorta: Aortic root: The aortic root was normal in size. Ascending aorta: The ascending aorta was normal in size. Mitral valve: Mildly thickened leaflets. Mobility was not restricted. Doppler: Transvalvular velocity was within the normal range. There was no evidence for stenosis. There was mild regurgitation. Valve area by pressure half-time: 4.1cm^2. Indexed valve area by pressure half-time: 1.8cm^2/m^2. Peak gradient (D): 2.1mm Hg. Left atrium: The atrium was mildly dilated. Right ventricle: The cavity size was normal. Systolic function was normal. Ventricular septum: Septal motion showed paradoxical motion consistent with Bundle Branch Block. Pulmonic valve: Poorly visualized. Doppler: Transvalvular velocity was within the normal range. There was no evidence for stenosis. There was trivial regurgitation. Tricuspid valve: Structurally normal valve. Doppler: Transvalvular velocity was within the normal range. There was no evidence for stenosis. There was no significant regurgitation. Pulmonary artery: Poorly visualized. Systolic pressure could not be accurately estimated. Right atrium: The atrium was normal in size. Pericardium: There was no pericardial effusion. Systemic veins: Inferior vena cava: Well visualized. The vessel was normal in size. The respirophasic diameter changes were in the normal range (greater than or equal to 50%), consistent with normal central venous pressure. Measurements Left ventricle Value 05/07/2018 Reference LV ID, ED, PLAX 5.8 cm 5.2 3.5 - 6.0 LV ID, ES, PLAX (H) 4.3 cm 4.1 2.1 - 4.0 LV PW thickness, ED, PLAX 1.2 cm 1.2 LV end-diastolic volume, 101 ml 108 1-p A2C LV ejection fraction, 1-p 48 % 45 A2C LV end-diastolic volume, 116 ml 122 1-p A4C LV ejection fraction, 1-p 42 % 37 A4C LV e', lateral 0.083 m/sec 0.137 LV E/e', lateral 9 10 LV e', medial 0.059 m/sec 0.121 LV E/e', medial 12 12 LV e', average 0.071 m/sec 0.129 LV E/e', average 10 11 Ventricular septum Value 05/07/2018 Reference IVS thickness, ED, PLAX 1.2 cm 1.2 LVOT Value 05/07/2018 Reference LVOT ID, A-P 2.2 cm 2.1 LVOT area 3.7 cm^2 3.6 LVOT peak velocity, S 0.89 m/sec 0.87 LVOT mean velocity, S 0.66 m/sec 0.65 LVOT VTI, S 18.3 cm 19.2 LVOT peak gradient, S 3.1 mm Hg 3 LVOT mean gradient, S 1.9 mm Hg 1.9 Stroke volume (SV), LVOT 67 ml 68 DP Stroke index (SV/bsa), 30 ml/m^2 33 LVOT DP Aortic valve Value 05/07/2018 Reference Aortic valve peak 1.2 m/sec 1.5 velocity, S Aortic valve mean 0.89 m/sec 1.09 velocity, S Aortic valve VTI, S 22.0 cm 28.9 Aortic mean gradient, S 3.4 mm Hg 5.3 Aortic peak gradient, S 6 mm Hg 9.3 VTI ratio, LVOT/AV 0.83 0.66 Aortic valve area, VTI 3.1 cm^2 2.4 Velocity ratio, peak, 0.73 0.57 LVOT/AV Aortic valve area, peak 2.7 cm^2 2 velocity Velocity ratio, mean, 0.74 0.6 LVOT/AV Aortic valve area, mean 2.7 cm^2 2.1 velocity Aortic valve area/bsa, 1.2 cm^2/m^2 1 mean velocity Aorta Value 05/07/2018 Reference Aortic root ID, ED 3.1 cm 3.2 Ascending aorta ID, A-P, S 3.4 cm 3.4 Left atrium Value 05/07/2018 Reference LA ID, A-P, ES 3.8 cm 4.5 LA ID/bsa, A-P 1.7 cm/m^2 2.1 <=2.2 LA area, ES, A4C (H) 24.7 cm^2 22.4 8.8 - 23.4 LA area, ES, A2C 22 cm^2 24 LA volume/bsa, ES, 1-p A4C 39 ml/m^2 36 LA volume, ES, 2-p 77 ml 72 LA volume/bsa, ES, 2-p 35 ml/m^2 35 LA/aortic root ratio 1.25 1.4 Mitral valve Value 05/07/2018 Reference Mitral E-wave peak 0.73 m/sec 1.41 velocity Mitral A-wave peak 1.23 m/sec velocity Mitral deceleration time 185 ms 129 150 - 230 Mitral pressure half-time 54 ms 37 Mitral peak gradient, D 2.1 mm Hg 7.9 Mitral E/A ratio, peak 0.59 Mitral valve area, PHT, DP 4.1 cm^2 5.9 Pulmonary veins Value 05/07/2018 Reference Pulmonary vein peak 0.61 m/sec 0.6 velocity, S Pulmonary vein peak 0.41 m/sec 0.4 velocity, D Pulmonary vein velocity 1.48 1.52 ratio, peak, S/D Pulmonary vein A-wave 0.36 m/sec reversal peak velocity Tricuspid valve Value 05/07/2018 Reference Tricuspid regurg peak 2.5 m/sec 2.2 velocity Tricuspid peak RV-RA 24.1 mm Hg 19.6 gradient Right atrium Value 05/07/2018 Reference RA area, ES, A4C 16.6 cm^2 16.5 8.3 - 19.5 Legend: (L) and (H) adam values outside specified reference range. I have personally reviewed the images and have reviewed and edited the reported findings. Electronically signed by Gurvinder Gordillo 12/27/2018 11:32
--- NOTE | 2018-12-27 11:26 | NUR.NOTE ---
Nursing Note: Spoke with TO Norris from the unit at [facility] [place] that the patient is being transferred to. She stated that if the patient was stable, the troponin was flat, and there was no guarantee of when the patient will be transferred. Asked if we could feed the patient and she stated that it would fine. Dr. Vyas aware and if the patient asks we will feed the patient. Chelsea Motta.
[2018-12-27] MEDS: Acetaminophen 500 MG TAB (11:45)
--- NOTE | 2018-12-27 12:00 | NUR.NOTE ---
Nursing Note: Assumed care of patient. Pt is chest pain free at this time. pending [place] [facility] [place]. no further needs. will continue to monitor.
--- NOTE | 2018-12-27 14:05 | NUR.NOTE ---
Nursing Note:Pt continues to wait in bed for placement to [facility] [place]. no acute changes. family at bedside. will continue to monitor.
--- NOTE | 2018-12-27 15:18 | NUR.NOTE ---
Nursing Note: Pt able to eat food. still awaiting bed placement. no new changes. no pain. pleasant and cooperative with care.
[2018-12-27 16:51] LABS: Troponin I < 0.02 ng/mL (0.00-0.06)
[2018-12-27] MEDS: amLODIPine 10 MG TAB PO (17:26)
[2018-12-27] MEDS: Lisinopril 20 MG TAB PO (17:26)
[2018-12-27] MEDS: Esomeprazole 40 MG CAPCR PO (17:26)
--- NOTE | 2018-12-27 17:34 | NUR.NOTE ---
Nursing Note: Per family and patient request daily po meds of lisinopril, nexium and amlodipine given. Pt resting in bed, possible bed placement upstairs in patient . will continue to monitor.
--- NOTE | 2018-12-27 18:10 | NUR.NOTE ---
Nursing Note: Awaiting call for report. no further needs.
[2018-12-27] MEDS: Metoprolol CR 50 MG TABCR (18:50)
[2018-12-27] MEDS: traMADol 50 MG TAB PO (20:50)
[2018-12-27] MEDS: Aspirin E.C. 325 MG TABEC PO (20:50)
[2018-12-27] MEDS: Enoxaparin 40 MG/0.4 ML SYR SC (20:50)
[2018-12-27] MEDS: Atorvastatin 40 MG TAB PO (22:12)
--- NOTE | 2018-12-27 22:15 | W.PM.HP.N ---
Date of service: 12/27/18 Time of Service: 22:15 Assessment and Plan (1) Unstable angina pectoris: Current visit: Yes Status: Acute Patient's sx of stable class 2 angina has progressed to the point that he says that he can not walk 10 feet w/out dysnea and chest tightness. His presenting sx of CP at rest are concerning and his recent echo showing mild LVD w/ LVEF 45-50% along w/ regional wall motion abnormalities of inferior and inferoseptal hypokinesis are concerning for ischemic basis of his cardiomyopathy and progression of CAD (although his pharmacologic stress MPI did not show ischemia). The patient needs definitive evaluation for CAD including cardiac catheterization. I spoke w/ Dr. Shahriar Vyas about heparinizing and plavix and he indicated that per Patel Nicole's discussion w/ [facility] rebrander they did not recommend heparinizing or beginning plavix unless he shows ischemic EKG changes w/ chest pain or his troponins start to rise. I did not add nitrates to his regimen tonght as he has been pain free. I continued his metoprolol XL and ASA and added a statin (atorvastatin) with the understanding with the patient that we would watch for any signs of intolerance. If he can not tolerate atorvastatin then crestor (rosuvastatin) should be tried and if he is still intolerant then he ought to be put on Repatha. (2) Cardiomyopathy: Current visit: No Status: Chronic His repeat echo today actually shows improvement over his calculated LVEF from his MPI study (LVEF 34%), patient on DEISI inhibitor (lisinopril 20 mg daily), BB (metoprolol XL 50 mg daily) but not currently on any spironolactone or other diuretics (he appears to be euvolemic). Cardiac cath is needed to determine if his CM is on an ischemic basis or not as revascularization may improve his LVEF further. Qualifiers: Cardiomyopathy type: ischemic Qualified Code(s): I25.5 - Ischemic cardiomyopathy (3) Hypercholesterolemia: Current visit: No Status: Chronic Patient is not currently on a statin. His allergy list included pravachol and he believes that other statins have been tried. He will be put on atorvastatin and if he is intolerant to this then one other statin should be tried before going to Repatha. (4) Paroxysmal atrial flutter: Current visit: No Status: Chronic no sx of palpitations with his admission symtoms however prior outpatient workup has shown sustained flutter up to 6 hrs. It is concerning that he is not anticoagulated. According to Dr. Bautista's note he calculated the patient with a [id number] score of 2 however by my calculation his score should be 3 which is high risk w/ 3.2% annual risk of stroke and ought to be on oral anticoagulation. However, I will await his cardiac cath before starting anticoagulation. I did put him on DVT prophylaxis lovenox 40 mg SC daily. (5) Gastroesophageal reflux disease with esophagitis: Current visit: No Status: Chronic continue PPI particularly in light of prior GI bleeds. (6) Hypertension: Current visit: No Status: Chronic BP has not historically been well controlled. HIs outpatient readings have been 150-160/90's. His lisinopril dose could be increased to 40 mg daily. He is on norvasc 10 mg daily. If a long acting nitrate is added then his bp will probably come down further. However, I will await his cardiac cath. also addition of spironolactone may bring this down further but again I will await cath results and allow his rebrander to decide his course of treatment. Qualifiers: Hypertension type: essential hypertension Qualified Code(s): I10 - Essential (primary) hypertension (7) Asthma: Current visit: No Status: Chronic stable. no sx of cough or wheezing. History of Present Illness Chief Complaint: chest pain Narrative: 68 yr old male w/ PMH asthma, HTN, paroxysmal atrial flutter, cardiomyopathy (probably ischemic basis) stage B CHF, HLD, GERD, tubular adenoma, prior GI bleed of undetermined origin (negative EGD, c-scope, capsule endoscopy) and stable exertional angina CCS II who has had recent pharmacologic stress MPI demonstrating moderate to severely depressed LV function w/ global systolic dysfunction w/ LVEF 34%, but no regional ischemia but hypokinesis of septal LV (however the patient has a LBBB on his EKG). The patient recently saw Dr. Bautista, cardiology for follow up on 12/26/2018 who recommended cardiac catheterization to evaluate his cardiomyopathy as he suspected ischemic basis due to patient's symptoms of exertional angina that had been improved w/ adjustment of his metoprolol. However, after leaving Dr. Bautista's office the patient developed severe substernal chest tightness along w/ nausea, dizziness and flushing and headache. This lasted for couple hours but subsided when his finallly convinced him to come to the ER. In the ER serial EKG and troponins were obtained. The EKG showed NSR w/ LBBB (not new), occasional PVC, J poiint elevation and peaked T waves across the precordial chest leads which were unchanged compared to prior ECG from Dec.19. Troponin levels were negative x 4 sets. Patel Nicole NP saw the patient and spoke w/ Dr. May from cardiology at [facility] who after review of the hx, labs, EKG's and prior echo and stress MPI agreed that the patient needed a cardiac cath however, [facility] had no open beds yesterday but Dr. May recommended hospitalizing overnight and indicated that they would probably take the patient in the morning. Because [facility] had no beds available on the night of 12/26 and no other [facility] the patient was housed in the ER. However, [facility] still did not take the patient today and now the patient is admitted to ICU as med/surg overflow telemetry bed patient on an observation status awaiting transfer to tertiary care facility for cardiac cath. Patient has remained pain free since admission although he had some fleeting sharp chest pains in the afternoon on 12/27 while in the ER necessitating repeat EKG and troponin levels which were negative and no changes on his EKG. Review of Systems Review of Systems All systems reviewed & are unremarkable except as noted in HPI and below PFSH Medical History Exertional angina (Chronic) Statin intolerance (Chronic) Impaired glucose tolerance (Chronic) Paroxysmal atrial flutter (Chronic) Tubular adenoma of colon (Chronic) Numbness and tingling in right hand (Chronic 04/18/16) Hypertension (Chronic 07/09/14) Hyperplasia of prostate (Chronic) Hypercholesterolemia (Chronic 04/01/13) Hearing loss (Chronic 10/04/13) Gastroesophageal reflux disease with esophagitis (Chronic 04/01/13) Depressive disorder (Chronic 04/01/13) Chronic pain syndrome (Chronic 04/01/13) Carpal tunnel syndrome (Chronic 10/16/12) Asthma (Chronic 10/04/13) Actinic keratosis (Chronic) Partial small bowel obstruction (Resolved) Constipation (Chronic) Iron deficiency anemia (Chronic) Cardiomyopathy (Chronic) Actinic keratosis Asthma BPH (benign prostatic hyperplasia) Carpal tunnel syndrome Chronic pain syndrome Depression GERD (gastroesophageal reflux disease) Hearing loss Hypercholesterolemia Hypertension Tubular adenoma of colon Surgical History 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) BACK/NECK SURGERY Colonoscopy - MAC EGD - MAC (05/14/18) left below knee amputation Social History household members: significant other Smoking and Tabacco status: Former Tobacco Use alcohol intake: current alcohol intake frequency: a few times a month substance use type: does not use Meds Home Medications Medication Instructions Recorded Confirmed Type [employer] Ultra Test #100 strip 02/05/13 12/26/18 History lancets [[employer] Delica Lancets] #100 ea 02/05/13 12/26/18 History fluticasone 50 mcg/actuation nasal 2 spray NS DAILY #3 gm 08/23/18 12/26/18 Rx spray,suspension acetaminophen 300 mg-codeine 60 mg 1 tab PO TID #90 tab 11/23/18 12/26/18 Rx tablet albuterol sulfate HFA 90 2 puff INHALATION QID PRN #1 11/23/18 12/26/18 Rx mcg/actuation aerosol inhaler inhaler esomeprazole magnesium 40 mg 40 mg PO DAILY #90 tab-cap 11/23/18 12/26/18 Rx capsule,delayed release lisinopril 20 mg tablet 20 mg PO DAILY #90 tab-cap 11/23/18 12/26/18 Rx tramadol 50 mg tablet 50 mg PO QID PRN #60 tab 11/23/18 12/26/18 Rx amlodipine 10 mg tablet 10 mg PO DAILY #90 tab 12/26/18 12/26/18 Rx metoprolol succinate ER 50 mg 50 mg PO DAILY #90 tab 12/26/18 12/26/18 Rx tablet,extended release 24 hr polyethylene glycol 3350 17 gm PO DAILY PRN 12/26/18 12/26/18 History Allergies Allergy/AdvReac Type Severity Reaction Status Date / Time Influenza Virus Vaccines Allergy Severe ? allergic Unverified 12/26/18 19:25 reaction to flu vaccine pravastatin AdvReac Intermediate Muscle and Unverified 12/26/18 19:25 joint pain Exam Const General: cooperative, healthy appearing and no acute distress Orientation: alert, awake and oriented x3 [facility] Head: normal to inspection, normocephalic and atraumatic Mouth: oral mucosae normal Eyes General: appearance normal, both eyes and all related structures Visual Wan: normal visual wan by confrontation Alignment and Position: alignment normal and position normal Eyelids: eyelids normal Sclera: sclerae normal Cornea: corneas normal Pupils: PERRL EOM: EOM intact bilaterally Neck Neck: normal visual inspection, full ROM, no lymphadenopathy, trachea midline, supple and no JVD Thyroid: thyroid normal Carotids: normal carotid upstroke Lymphatic: no lymphadenopathy noted Chest Chest: normal inspection of the chest and normal palpation of entire chest wall Resp Effort & Inspection: normal respiratory effort and able to speak in complete sentences Auscultation: clear to auscultation bilaterally Percussion: percussion normal Cardio Jugular venous pressure: no JVD Palpation: normal PMI Rate: regular rate Rhythm: regular rhythm Heart Sounds: S1 normal, S2 normal and normal, physiologic split S2 Bruits: no abdominal aortic bruits, no carotid bruits, no femoral bruits and no renal bruits GI Inspection: normal to inspection Palpation: soft and no hepatosplenomegaly Percussion: normal to percussion Auscultation: normal bowel sounds Skin General skin exam: no rashes or lesions noted and turgor normal Lesions: no lesions Rashes: no rashes Wounds: no wounds Hair: normal Nails: normal Neuro General: alert, awake, oriented x3, gait normal, tone normal, moves all extremities and no focal motor deficits Cognition: normal cognition Speech: speech normal Gait: normal gait Motor: muscle tone normal throughout Sensory Exam: no sensory deficits noted Extrem General: normal to inspection, full ROM, normal capillary refill, no joint enlargement, no clubbing, cyanosis or edema and no calf tenderness Left lower extremity: lower leg Details: other (s/p BKA) Psych Appearance: grossly normal and well kempt Mental Status: mental status grossly normal Speech and Movement: speech and movement normal Mood: congruent mood Affect: normal affect Attitude: cooperative Thought Process: normal Thought Content: normal Insight: insight good Judgment: judgment good Results Imaging Chest x-ray: report reviewed (Exam(s) a RAD:XR chest 2V PA & lateral SYMPTOM/DIAGNOSIS: CHEST PAIN PA AND LATERAL CHEST: The heart is normal in size. The lungs are clear. The mediastinal structures and pleura appear intact. CONCLUSION: Normal chest. Ordered By: Patel Nicole NP CC: ) EKG: image reviewed Labs : 12/26/18 19:10 12/26/18 19:10 Laboratory Results - last 24 hr 12/26/18 12/26/18 12/27/18 22:07 23:09 05:15 Troponin I Cancelled < 0.02 < 0.02 12/27/18 16:25 Troponin I < 0.02 Last Vital Signs Temp 36.6 C 12/27/18 20:17 Pulse 110 H 12/27/18 20:17 Resp 19 12/27/18 20:30 BP 145/91 H 12/27/18 19:39 Pulse Ox 96 12/27/18 20:17
--- NOTE | 2018-12-27 22:32 | HPE_ITS ---
Date of service: 12/27/18 Time of Service: 22:15 Assessment and Plan (1) Unstable angina pectoris: Current visit: Yes Status: Acute Patient's sx of stable class 2 angina has progressed to the point that he says that he can not walk 10 feet w/out dysnea and chest tightness. His presenting sx of CP at rest are concerning and his recent echo showing mild LVD w/ LVEF 45-50% along w/ regional wall motion abnormalities of inferior and inferoseptal hypokinesis are concerning for ischemic basis of his cardiomyopathy and progression of CAD (although his pharmacologic stress MPI did not show ischemia). The patient needs definitive evaluation for CAD including cardiac catheterization. I spoke w/ Dr. Shahriar Vyas about heparinizing and plavix and he indicated that per Patel Nicole's discussion w/ [facility] impregnator operator they did not recommend heparinizing or beginning plavix unless he shows ischemic EKG changes w/ chest pain or his troponins start to rise. I did not add nitrates to his regimen tonght as he has been pain free. I continued his metoprolol XL and ASA and added a statin (atorvastatin) with the understanding with the patient that we would watch for any signs of intolerance. If he can not tolerate atorvastatin then crestor (rosuvastatin) should be tried and if he is still intolerant then he ought to be put on Repatha. (2) Cardiomyopathy: Current visit: No Status: Chronic His repeat echo today actually shows improvement over his calculated LVEF from his MPI study (LVEF 34%), patient on DEISI inhibitor (lisinopril 20 mg daily), BB (metoprolol XL 50 mg daily) but not currently on any spironolactone or other diuretics (he appears to be euvolemic). Cardiac cath is needed to determine if his CM is on an ischemic basis or not as revascularization may improve his LVEF further. Qualifiers: Cardiomyopathy type: ischemic Qualified Code(s): I25.5 - Ischemic cardiomyopathy (3) Hypercholesterolemia: Current visit: No Status: Chronic Patient is not currently on a statin. His allergy list included pravachol and he believes that other statins have been tried. He will be put on atorvastatin and if he is intolerant to this then one other statin should be tried before going to Repatha. (4) Paroxysmal atrial flutter: Current visit: No Status: Chronic no sx of palpitations with his admission symtoms however prior outpatient workup has shown sustained flutter up to 6 hrs. It is concerning that he is not anticoagulated. According to Dr. Bautista's note he calculated the patient with a [id number] score of 2 however by my calculation his score should be 3 which is high risk w/ 3.2% annual risk of stroke and ought to be on oral anticoagulation. However, I will await his cardiac cath before starting anticoagulation. I did put him on DVT prophylaxis lovenox 40 mg SC daily. (5) Gastroesophageal reflux disease with esophagitis: Current visit: No Status: Chronic continue PPI particularly in light of prior GI bleeds. (6) Hypertension: Current visit: No Status: Chronic BP has not historically been well controlled. HIs outpatient readings have been 150-160/90's. His lisinopril dose could be increased to 40 mg daily. He is on norvasc 10 mg daily. If a long acting nitrate is added then his bp will probably come down further. However, I will await his cardiac cath. also addition of spironolactone may bring this down further but again I will await cath results and allow his impregnator operator to decide his course of treatment. Qualifiers: Hypertension type: essential hypertension Qualified Code(s): I10 - Essential (primary) hypertension (7) Asthma: Current visit: No Status: Chronic stable. no sx of cough or wheezing. History of Present Illness Chief Complaint: chest pain Narrative: 68 yr old male w/ PMH asthma, HTN, paroxysmal atrial flutter, cardiomyopathy (probably ischemic basis) stage B CHF, HLD, GERD, tubular adenoma, prior GI bleed of undetermined origin (negative EGD, c-scope, capsule endoscopy) and stable exertional angina CCS II who has had recent pharmacologic stress MPI demonstrating moderate to severely depressed LV function w/ global systolic dysfunction w/ LVEF 34%, but no regional ischemia but hypokinesis of septal LV (however the patient has a LBBB on his EKG). The patient recently saw Dr. Bautista, cardiology for follow up on 12/26/2018 who recommended cardiac catheterization to evaluate his cardiomyopathy as he suspected ischemic basis due to patient's symptoms of exertional angina that had been improved w/ adjustment of his metoprolol. However, after leaving Dr. Jonathan reyes's office the patient developed severe substernal chest tightness along w/ nausea, dizziness and flushing and headache. This lasted for couple hours but subsided when his finallly convinced him to come to the ER. In the ER serial EKG and troponins were obtained. The EKG showed NSR w/ LBBB (not new), occasional PVC, J poiint elevation and peaked T waves across the precordial chest leads which were unchanged compared to prior ECG from Dec.19. Troponin levels were negative x 4 sets. Patel Nicole NP saw the patient and spoke w/ Dr. May from cardiology at [facility] who after review of the hx, labs, EKG's and prior echo and stress MPI agreed that the patient needed a cardiac cath however, [facility] had no open beds yesterday but Dr. May recommended hospitalizing overnight and indicated that they would probably take the patient in the morning. Because [facility] had no beds available on the night of 12/26 and no other [facility] had any open beds the patient was housed in the ER. However, [facility] still did not take the patient today and now the patient is admitted to ICU as med/surg overflow telemetry bed patient on an observation status awaiting transfer to tertiary care facility for cardiac cath. Patient has remained pain free since admission although he had some fleeting sharp chest pains in the afternoon on 12/27 while in the ER necessitating repeat EKG and troponin levels which were negative and no changes on his EKG. Review of Systems Review of Systems All systems reviewed & are unremarkable except as noted in HPI and below PFSH Medical History Exertional angina (Chronic) Statin intolerance (Chronic) Impaired glucose tolerance (Chronic) Paroxysmal atrial flutter (Chronic) Tubular adenoma of colon (Chronic) Numbness and tingling in right hand (Chronic 04/18/16) Hypertension (Chronic 07/09/14) Hyperplasia of prostate (Chronic) Hypercholesterolemia (Chronic 04/01/13) Hearing loss (Chronic 10/04/13) Gastroesophageal reflux disease with esophagitis (Chronic 04/01/13) Depressive disorder (Chronic 04/01/13) Chronic pain syndrome (Chronic 04/01/13) Carpal tunnel syndrome (Chronic 10/16/12) Asthma (Chronic 10/04/13) Actinic keratosis (Chronic) Partial small bowel obstruction (Resolved) Constipation (Chronic) Iron deficiency anemia (Chronic) Cardiomyopathy (Chronic) Actinic keratosis Asthma BPH (benign prostatic hyperplasia) Carpal tunnel syndrome Chronic pain syndrome Depression GERD (gastroesophageal reflux disease) Hearing loss Hypercholesterolemia Hypertension Tubular adenoma of colon Surgical History 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) BACK/NECK SURGERY Colonoscopy - MAC EGD - MAC (05/14/18) left below knee amputation Social History household members: significant other Smoking and Tabacco status: Former Tobacco Use alcohol intake: current alcohol intake frequency: a few times a month substance use type: does not use Meds Home Medications Medication Instructions Recorded Confirmed Type Tab [employer] Ultra Test #100 strip 02/05/13 12/26/18 History lancets [[employer] Delica Lancets] #100 ea 02/05/13 12/26/18 History fluticasone 50 mcg/actuation nasal 2 spray NS DAILY #3 gm 08/23/18 12/26/18 Rx spray,suspension acetaminophen 300 mg-codeine 60 mg 1 tab PO TID #90 tab 11/23/18 12/26/18 Rx tablet albuterol sulfate HFA 90 2 puff INHALATION QID PRN #1 11/23/18 12/26/18 Rx mcg/actuation aerosol inhaler inhaler esomeprazole magnesium 40 mg 40 mg PO DAILY #90 tab-cap 11/23/18 12/26/18 Rx capsule,delayed release lisinopril 20 mg tablet 20 mg PO DAILY #90 tab-cap 11/23/18 12/26/18 Rx tramadol 50 mg tablet 50 mg PO QID PRN #60 tab 11/23/18 12/26/18 Rx amlodipine 10 mg tablet 10 mg PO DAILY #90 tab 12/26/18 12/26/18 Rx metoprolol succinate ER 50 mg 50 mg PO DAILY #90 tab 12/26/18 12/26/18 Rx tablet,extended release 24 hr polyethylene glycol 3350 17 gm PO DAILY PRN 12/26/18 12/26/18 History Allergies Allergy/AdvReac Type Severity Reaction Status Date / Time Influenza Virus Vaccines Allergy Severe ? allergic Unverified 12/26/18 19:25 reaction to flu vaccine pravastatin AdvReac Intermediate Muscle and Unverified 12/26/18 19:25 joint pain Exam Const General: cooperative, healthy appearing and no acute distress Orientation: alert, awake and oriented x3 [facility] Head: normal to inspection, normocephalic and atraumatic Mouth: oral mucosae normal Eyes General: appearance normal, both eyes and all related structures Visual Wan: normal visual wan by confrontation Alignment and Position: alignment normal and position normal Eyelids: eyelids normal Sclera: sclerae normal Cornea: corneas normal Pupils: PERRL EOM: EOM intact bilaterally Neck Neck: normal visual inspection, full ROM, no lymphadenopathy, trachea midline, supple and no JVD Thyroid: thyroid normal Carotids: normal carotid upstroke Lymphatic: no lymphadenopathy noted Chest Chest: normal inspection of the chest and normal palpation of entire chest wall Resp Effort & Inspection: normal respiratory effort and able to speak in complete sentences Auscultation: clear to auscultation bilaterally Percussion: percussion normal Cardio Jugular venous pressure: no JVD Palpation: normal PMI Rate: regular rate Rhythm: regular rhythm Heart Sounds: S1 normal, S2 normal and normal, physiologic split S2 Bruits: no abdominal aortic bruits, no carotid bruits, no femoral bruits and no renal bruits GI Inspection: normal to inspection Palpation: soft and no hepatosplenomegaly Percussion: normal to percussion Auscultation: normal bowel sounds Skin General skin exam: no rashes or lesions noted and turgor normal Lesions: no lesions Rashes: no rashes Wounds: no wounds Hair: normal Nails: normal Neuro General: alert, awake, oriented x3, gait normal, tone normal, moves all extremities and no focal motor deficits Cognition: normal cognition Speech: speech normal Gait: normal gait Motor: muscle tone normal throughout Sensory Exam: no sensory deficits noted Extrem General: normal to inspection, full ROM, normal capillary refill, no joint enlargement, no clubbing, cyanosis or edema and no calf tenderness Left lower extremity: lower leg Details: other (s/p BKA) Psych Appearance: grossly normal and well kempt Mental Status: mental status grossly normal Speech and Movement: speech and movement normal Mood: congruent mood Affect: normal affect Attitude: cooperative Thought Process: normal Thought Content: normal Insight: insight good Judgment: judgment good Results Imaging Chest x-ray: report reviewed (Exam(s) a RAD:XR chest 2V PA & lateral SYMPTOM/DIAGNOSIS: CHEST PAIN PA AND LATERAL CHEST: The heart is normal in size. The lungs are clear. The mediastinal structures and pleura appear intact. CONCLUSION: Normal chest. Ordered By: Patel Nicole NP CC: ) EKG: image reviewed Labs : 12/26/18 19:10 12/26/18 19:10 Laboratory Results - last 24 hr 12/26/18 12/26/18 12/27/18 22:07 23:09 05:15 Troponin I Cancelled < 0.02 < 0.02 12/27/18 16:25 Troponin I < 0.02 Last Vital Signs Temp 36.6 C 12/27/18 20:17 Pulse 110 H 12/27/18 20:17 Resp 19 12/27/18 20:30 BP 145/91 H 12/27/18 19:39 Pulse Ox 96 12/27/18 20:17
[2018-12-28] VITALS (58 sets, daily range): BP systolic 103–150; BP diastolic 49–76; PULSE 54–92; RESP 12–36; TEMP 36.5–37.3; O2SAT 96–98
[2018-12-28] MEDS: Normal Saline Flush 10 ML SYR IVP (04:00)
[2018-12-28] MEDS: Acetaminophen 325 MG TAB PO ×2 (04:32→13:38)
[2018-12-28 07:30] LABS: Cholesterol 222 mg/dL (50-200); HDL Cholesterol 40 mg/dL (40-60); LDL CHOLESTEROL 161 mg/dL (<100); Triglyceride 128 mg/dL (30-150)
[2018-12-28 07:47] LABS: Hemoglobin A1C 6.5 % (4.5-6.2)
[2018-12-28] MEDS: amLODIPine 10 MG TAB PO (09:14)
[2018-12-28] MEDS: Esomeprazole 40 MG CAPCR PO (09:14)
[2018-12-28] MEDS: Lisinopril 20 MG TAB PO (09:15)
[2018-12-28] MEDS: Metoprolol CR 50 MG TABCR PO (09:15)
[2018-12-28] MEDS: Aspirin E.C. 325 MG TABEC PO (09:15)
--- NOTE | 2018-12-28 09:17 | PDOC.CMIN ---
- If Service Date Differs Date of service: 12/28/18 Time of Service: 09:17 Care Management Initial Assess REASON FOR HOSPITALIZATION:: Chest Pain PAST MEDICAL HISTORY/PAST SURGICAL HISTORY:: Actinic keratosis. Asthma. BPH (benign prostatic hyperplasia). Carpal tunnel syndrome. Chronic pain syndrome. Depression. GERD (gastroesophageal reflux disease). Hearing loss, Hypercholesterolemia, Hypertension, Tubular adenoma of colon, BACK/NECK SURGERY, Colonoscopy - MAC, EGD - MAC (05/14/18), left below knee amputation PREVIOUS FUNCTIONAL STATUS/SOCIAL/FAMILY SUPPORTS:: Warren resides in [place] with his , Yoko. He reports his adult daughter also resides locally. 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 He is independent with his ADLs and transportation. CURRENT FUNCTIONAL STATUS:: Warren is sitting up on the side of the bed he states he currently is not having chest pain. Warren's is present they have questions related to benefits and hospital transfer which CM reviewed. Warren makes good eye contact he is engaged with CM during assessment. ADVANCE DIRECTIVES:: On file Has patient been provided with information about the portal?: Yes Did the patient sign up for the portal?: No (Already enrolled) CODE STATUS:: Full Code INSURANCE COVERAGE / FINANCIAL ISSUES:: Medicare, Financial asst 100 CURRENT HOME/COMMUNITY SERVICES/EQUIPMENT:: [employer]. No current services at this time. PRIMARY CARE PHYSICIAN:: Yoko Esqueda POTENTIAL DISCHARGE NEEDS:: [place] [facility] [place] [facility] pending bed availability. PATIENT/FAMILY EDUCATION NEEDS:: Eduation related to transition to [facility]. ANTICIPATED BARRIERS TO DISCHARGE:: Bed availability at [facility]. TRANSPORTATION:: [facility] at time of transfer coordinated by RN non destructive testing supervisor. PLAN:: Warren was admitted to observation related to chest pain. Warren is awaiting transfer to [facility]. CM to continue to provide support to patient and family.
--- NOTE | 2018-12-28 09:37 | INITIAL_ITS ---
- If Service Date Differs Date of service: 12/28/18 Time of Service: 09:17 Care Management Initial Assess REASON FOR HOSPITALIZATION:: Chest Pain PAST MEDICAL HISTORY/PAST SURGICAL HISTORY:: Actinic keratosis. Asthma. BPH (benign prostatic hyperplasia). Carpal tunnel syndrome. Chronic pain syndrome. Depression. GERD (gastroesophageal reflux disease). Hearing loss, Hypercholesterolemia, Hypertension, Tubular adenoma of colon, BACK/NECK SURGERY, Colonoscopy - MAC, EGD - MAC (05/14/18), left below knee amputation PREVIOUS FUNCTIONAL STATUS/SOCIAL/FAMILY SUPPORTS:: Warren resides in [place] with his , Yoko. He reports his adult daughter also resides locally. 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 He is independent with his ADLs and transportation. CURRENT FUNCTIONAL STATUS:: Warren is sitting up on the side of the bed he states he currently is not having chest pain. Warren's is present they have questions related to benefits and hospital transfer which CM reviewed. Warren makes good eye contact he is engaged with CM during assessment. ADVANCE DIRECTIVES:: On file Has patient been provided with information about the portal?: Yes Did the patient sign up for the portal?: No (Already enrolled) CODE STATUS:: Full Code INSURANCE COVERAGE / FINANCIAL ISSUES:: Medicare, Financial asst 100 CURRENT HOME/COMMUNITY SERVICES/EQUIPMENT:: [employer]. No current services at this time. PRIMARY CARE PHYSICIAN:: Yoko Esqueda POTENTIAL DISCHARGE NEEDS:: Warren will be transfered [place] tertiary [place] [facility] [place] [facility] pending bed availability. PATIENT/FAMILY EDUCATION NEEDS:: Eduation related to transition to [facility]. ANTICIPATED BARRIERS TO DISCHARGE:: Bed availability at [facility]. TRANSPORTATION:: [facility] at time of transfer coordinated by RN coremaker supervisor. PLAN:: Warren was admitted to observation related to chest pain. Warren is awaiting transfer to [facility]. CM to continue to provide support to patient and family.
--- NOTE | 2018-12-28 11:46 | PHARADMIT ---
Admission Pharmacy Clinical Review CHEST PAIN Code Status Full Code Current Weight Wgt- 98.2 kg Renally Cleared and Narrow Therapeutic Index Meds CrCl~62 mL/min Meds-OK QTc Value / Action Taken QTc-498 ( Tramadol, Nexium (home meds) BP Control, Fever BP- 150/65 Tmax-37C Electrolytes reviewed Na- 139 K+4.1 Mag-1.8 DVT Prophylaxis Lovenox Opiate Usage / Scheduled Bowel Regimen Ordered Yes Yes Plt/SCr for Heparin / Enoxaparin Plts- 234 SCr-1.14 INR for Warfarin inr-1.0 H/H stable, WBC/Bands H&H- 13.7/41.2 WBC- 8.30 Antibiotic appropriateness none Cultures and Sensitivities none Surgical ABX d/c within 24 hr na DM control / Insulin Dosing BG- 132 JaP3d-8.5 Heart Failure (Check EF%) (DEISI's, B-Block, Diuretics) Norvasc, Lisinopril, NTG, Toprol-XL IV to PO Switch No Home Meds Reviewed Yes Home Meds Not Ordered Senna, Comments
--- NOTE | 2018-12-28 13:51 | DSE_ITS ---
Date of service: 12/28/18 Time of Service: 13:49 DS: Diagnosis Discharge Diagnosis (1) Unstable angina pectoris: Status: Acute (2) Cardiomyopathy: Status: Chronic (3) Hypercholesterolemia: Status: Chronic (4) Paroxysmal atrial flutter: Status: Chronic (5) Gastroesophageal reflux disease with esophagitis: Status: Chronic (6) Hypertension: Status: Chronic (7) Asthma: Status: Chronic Discharge Plan Disposition Patient Disposition: [facility] Condition: Stable Discharge Details Reason For Visit: chest pain Admit Date/Time: 12/27/18 17:53 Admit Provider: Bharat Simeon Attending Provider: Bharat Simeon Primary Care Provider: Yoko Esqueda Hospital Course Hospital Course: 68 yr old male w/ PMH asthma, HTN, paroxysmal atrial flutter, cardiomyopathy (probably ischemic basis) stage B CHF, HLD, GERD, tubular adenoma, prior GI bleed of undetermined origin (negative EGD, c-scope, capsule endoscopy) and stable exertional angina CCS II who has had recent pharmacologic stress MPI demonstrating moderate to severely depressed LV function w/ global systolic dysfunction w/ LVEF 34%, but no regional ischemia but hypokinesis of septal LV (however the patient has a LBBB on his EKG). The patient recently saw Dr. Bautista, cardiology for follow up on 12/26/2018 who recommended cardiac catheterization to evaluate his cardiomyopathy as he suspected ischemic basis due to patient's symptoms of exertional angina that had been improved w/ adjustment of his metoprolol. However, after leaving Dr. Bautista's office the patient developed severe substernal chest tightness along w/ nausea, dizziness and flushing and headache. This lasted for couple hours but subsided when his finallly convinced him to come to the ER. In the ER serial EKG and troponins were obtained. The EKG showed NSR w/ LBBB (not new), occasional PVC, J poiint elevation and peaked T waves across the precordial chest leads which were unchanged compared to prior ECG from Dec.19. Troponin levels were negative x 4 sets. Patel Nicole NP saw the patient and spoke w/ Dr. May [place] [facility] [place] after review of the hx, labs, EKG's and prior echo and stress MPI agreed that the patient needed a cardiac cath however, [facility] [place] no open beds yesterday but Dr. May recommended hospitalizing overnight and indicated that they would probably take the patient in the morning. Because [facility] had no beds available on the night of 12/26 and no other [facility] had any [facility] beds the patient was housed in the ER. However, [facility] [place] not [place] the patient on 12/27 due to ongoing bed issues, he was admitted to ICU as med/surg overflow telemetry bed patient on an observation status awaiting transfer to tertiary care facility for cardiac cath. Patient has remained pain free since admission although he had some fleeting sharp chest pains in the afternoon on 12/27 while in the ER necessitating repeat EKG and troponin levels which were negative and no changes on his EKG. Hospital Course: (1) Unstable angina pectoris: Current visit: Yes Status: Acute Patient's sx of stable class 2 angina has progressed to the point that he says that he can not walk 10 feet w/out dysnea and chest tightness. His presenting sx of CP at rest are concerning and his recent echo showing mild LVD w/ LVEF 45-50% along w/ regional wall motion abnormalities of inferior and inferoseptal hypokinesis are concerning for ischemic basis of his cardiomyopathy and progression of CAD (although his pharmacologic stress MPI did not show ischemia). The patient needs definitive evaluation for CAD including cardiac catheterization. I spoke w/ Dr. Shahriar Vyas about heparinizing and plavix and he indicated that per Patel Nicole's discussion w/ [facility] glue jointer operator they did not recommend heparinizing or beginning plavix unless he shows ischemic EKG changes w/ chest pain or his troponins start to rise. Nitrates were not added to his regimen as he has been chest pain free. He was maintained on his metoprolol XL and ASA, with added statin (atorvastatin) with the understanding with the patient that we would watch for any signs of intolerance. If he can not tolerate atorvastatin then crestor (rosuvastatin) should be tried and if he is still intolerant then he ought to be put on Repatha. (2) Cardiomyopathy: Current visit: No Status: Chronic His repeat echo today actually shows improvement over his calculated LVEF from his MPI study (LVEF 34%), patient on DEISI inhibitor (lisinopril 20 mg daily), BB (metoprolol XL 50 mg daily) but not currently on any spironolactone or other diuretics (he appears to be euvolemic). Cardiac cath is needed to determine if his CMP is on an ischemic basis or not as revascularization may improve his LVEF further. (3) Hypercholesterolemia: Current visit: No Status: Chronic Patient is not currently on a statin. His allergy list included pravachol and he believes that other statins have been tried. Placed on Atorvastatin as above. (4) Paroxysmal atrial flutter: No sx of palpitations with his admission symtoms however prior outpatient workup has shown sustained flutter up to 6 hrs. It is concerning that he is not anticoagulated. According to Dr. Bautista's note he calculated the patient with a [id number] score of 2, but may be as high as 3. Anticoagulation will pend on results of cardiac cath. Also with history of GI Bleed with unknown source that may alter decision. (5) Gastroesophageal reflux disease with esophagitis: Current visit: No Status: Chronic continue PPI particularly in light of prior GI bleeds. (6) Hypertension: Current visit: No Status: Chronic BP has not historically been well controlled. HIs outpatient readings have been 150-160/90's. His lisinopril dose could be increased to 40 mg daily. He is on norvasc 10 mg daily. If a long acting nitrate is added then his bp will probably come down further. Further med management will wait for results of cardiac cad. May also consider spironolactone given cardiomyopathy, although wit h LVEF >35%. (7) Asthma: Appears Quiescent. Home Meds and New Rx's Prescriptions: No Action fluticasone 50 mcg/actuation spray,suspension 2 spray NS DAILY Qty: 3 RF: 3 metoprolol succinate 50 mg tablet extended release 24 hr 50 mg PO DAILY Qty: 90 RF: 3 amlodipine 10 mg tablet 10 mg PO DAILY Qty: 90 RF: 3 OneTouch Ultra Test 1 EACH strip 1 strip Miscellaneous DAILY Qty: 100 RF: 4 lancets [OneTouch Delica Lancets] 1 EACH misc 1 ea Intradermal DAILY Qty: 100 RF: 4 lisinopril 20 mg tablet 20 mg PO DAILY Qty: 90 RF: 3 esomeprazole magnesium [Nexium] 40 mg capsule,delayed release(DR/EC) 40 mg PO DAILY Qty: 90 RF: 3 Proventil HFA 90 mcg/actuation HFA aerosol inhaler 2 puff Inhalation QID PRN (Reason: shortness of breath or wheezing) Qty: 1 RF: 4 acetaminophen-codeine [Tylenol-Codeine #4] 300-60 mg tablet 1 tab PO TID Qty: 90 RF: 0 tramadol 50 mg tablet 50 mg PO QID PRN (Reason: pain) Qty: 60 RF: 0 polyethylene glycol 3350 17 gram powder in packet 17 gm PO DAILY PRNRF: 0 Discharge Instructions Activity:: bedrest Equipment/Supplies:: No Equipment Needed Diet:: Heart Healthy Discharge Orders Discharge Orders: Discharge Order (Routine); Ordered 12/28/18 Ordered By: Manuel Pratt DS: Data Vitals/I&O Vitals and I&O: Vital Signs Temperature 37.3 C 12/28/18 12:55 Temperature Source Temporal Artery Scan 12/28/18 12:55 Pulse 80 12/28/18 12:31 Pulse 85 12/28/18 12:31 Respiratory Rate 14 12/28/18 10:33 Respiratory Effort Non-Labored 12/28/18 12:55 Respiratory Depth Normal 12/28/18 12:55 Respiratory Pattern Normal 12/28/18 12:55 Blood Pressure 145/67 H 12/28/18 12:31 Blood Pressure Mean 86 12/28/18 12:31 Blood Pressure Position Sitting 12/28/18 12:55 Pulse Oximetry 97 12/28/18 12:55 Oxygen Delivery Method Room Air 12/28/18 12:55 Oxygen Flow Rate 0 12/28/18 12:55 Pain Level 0 12/28/18 07:38 Comment 12/26/18 19:02 Intake & Output 12/27/18 12/28/18 12/28/18 23:59 11:59 23:59 Output Total 250 / 250 210 / 210 Balance -250 / -250 -210 / -210 Weight 98 kg Output: Urine 250 / 250 210 / 210 Other: Urine Color Light Candida Yellow Urine Appearance Clear Clear Urine Odor Normal Normal Stool Occult Blood Negative Stool Size Large Stool Characteristics Soft Completed studies during hospitalization [Text1]: Exam(s) a NM:NM MPI rest & stress grp Myocardial Perfusion Imaging - SPECT Regadenoson Date of study: 12/24/2018 *PATIENT PRESENTATION* Height: 1780.5cm (701in) Blood Pressure: Weight: 95.5kg (210lb) BSA: 5.47m^2 Referring physician: Gurvinder Gordillo Ordering physician: Marcus Bautista Impressions: - Normal perfusion by Tc99m Sestamibi Imaging. - Abnormal contraction consistent with cardiomyopathy. Summary: 1. Myocardial perfusion imaging: No myocardial perfusion defects noted. 2. The calculated left ventricular ejection fraction after stress: 34%. LV global systolic function is moderate to severely reduced. There is hypokinesis involving the septal wall(s) of the left ventricle. Recommendations: Correlate EF with echo. Exam(s) 12/26 a RAD:XR chest 2V PA & lateral SYMPTOM/DIAGNOSIS: CHEST PAIN PA AND LATERAL CHEST: The heart is normal in size. The lungs are clear. The mediastinal structures and pleura appear intact. CONCLUSION: Normal chest. Exam(s) a US:US echocardiogram Date of study: 12/27/2018 Transthoracic Echocardiography M-mode, complete 2D, complete spectral Doppler, and color Doppler *STUDY CONCLUSIONS* Summary: 1. Left ventricle: The cavity size was normal. Wall thickness was increased in a pattern of mild LVH. Systolic function was mildly reduced. The estimated ejection fraction was 45-50%. Hypokinesis of the inferior and inferoseptal myocardium. 2. Right ventricle: The cavity size was normal. Systolic function was normal. 3. Ventricular septum: Septal motion showed paradoxical motion consistent with Bundle Branch Block. 4. Left atrium: The atrium was mildly dilated. 5. Inferior vena cava: The vessel was normal in size. The respirophasic diameter changes were in the normal range (greater than or equal to 50%), consistent with normal central venous pressure. Labs on day of discharge: Labs from last 24 hours 12/28/18 12/28/18 02 06:15 06:15 16:25 Hemoglobin A1c 6.5 H Troponin I < 0.02 Triglycerides 128 Total Cholesterol 222 H LDL Cholesterol Direct 161 H HDL Cholesterol 40 PFSH Medical History Exertional angina (Chronic) Statin intolerance (Chronic) Impaired glucose tolerance (Chronic) Paroxysmal atrial flutter (Chronic) Tubular adenoma of colon (Chronic) Numbness and tingling in right hand (Chronic 04/18/16) Hypertension (Chronic 07/09/14) Hyperplasia of prostate (Chronic) Hypercholesterolemia (Chronic 04/01/13) Hearing loss (Chronic 10/04/13) Gastroesophageal reflux disease with esophagitis (Chronic 04/01/13) Depressive disorder (Chronic 04/01/13) Chronic pain syndrome (Chronic 04/01/13) Carpal tunnel syndrome (Chronic 10/16/12) Asthma (Chronic 10/04/13) Actinic keratosis (Chronic) Partial small bowel obstruction (Resolved) Constipation (Chronic) Iron deficiency anemia (Chronic) Cardiomyopathy (Chronic) Actinic keratosis Asthma BPH (benign prostatic hyperplasia) Carpal tunnel syndrome Chronic pain syndrome Depression GERD (gastroesophageal reflux disease) Hearing loss Hypercholesterolemia Hypertension Tubular adenoma of colon Surgical History 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) BACK/NECK SURGERY Colonoscopy - MAC EGD - MAC (05/14/18) left below knee amputation Social History household members: significant other Smoking and Tabacco status: Former Tobacco Use alcohol intake: current alcohol intake frequency: a few times a month substance use type: does not use
== END 2018-12-28 14:50 | disposition short-term general hospital (02) ==
LOC: ER 12-27 18:52 → ICU 12-28 13:51
PROVIDERS: Nurse Practitioner Family; Admitting Provider Internal Medicine; Emergency Provider Emergency Medicine; PCP Internal Medicine; Visit Provider Internal Medicine
DX: I20.0 Unstable angina (principal); I42.9 Cardiomyopathy, unspecified; I50.41 Acute combined systolic (congestive) and diastolic (congestive) heart failure; I48.92 Unspecified atrial flutter; I11.0 Hypertensive heart disease with heart failure; I44.7 Left bundle-branch block, unspecified; E78.00 Pure hypercholesterolemia, unspecified; K21.0 Gastro-esophageal reflux disease with esophagitis; J45.909 Unspecified asthma, uncomplicated; Z75.1 Person awaiting admission to adequate facility elsewhere
CPT/HCPCS: 36415; 80053; 80061; 83721; 93005; 93306; 99214; 99220; 99238; 99285; J1650; 71046; 83036; 83735; 83880; 84484; 85025; 85610; 85730; 93010; 99217; G0378

== ENCOUNTER 2019-01-17 14:13 | Outpatient (CLI) | payer MEDICARE, SELFPAY ==
[2019-01-17 14:34] LABS: Abs Immature Grans 0.02 k/cumm (0.0-0.09); Absolute Basophil Count 0.03 k/cumm (0.0-0.2); Absolute Eosinophil Count 0.19 k/cumm (0.0-0.7); Absolute Lymphocyte Count 1.28 k/cumm (1.2-3.4); Absolute Monocyte Count 0.55 k/cumm (0.11-0.7); Absolute Neutrophil Count 4.15 k/cumm (1.2-6.7); Basophils % 0.5; Eosinophils % 3.1; HCT 36.7 % (40.0-50.0); HGB 12.3 g/dL (13.5-17.5); Immature Grans % 0.3; Lymphocytes % 20.6; Mean Corp. HGB Concentration 33.5 g/dL (32.0-36.0); Mean Corpuscular Hemoglobin 28.3 pg (27.0-33.0); Mean Corpuscular Volume 84.6 fL (80-95); Mean Platelet Volume 11.1 fL (8.0-11.0); Monocytes % 8.8; Neutrophils % 66.7; Platelet Count 269 x1000/uL (130-400); RBC 4.34 m/cumm (4.50-6.00); RBC Distribution Width 13.8 % (11.8-14.1); White Blood Cell Count 6.22 k/cumm (4.4-10.8)
[2019-01-17 15:32] LABS: Iron 69 ug/dL (50-175); Total Iron Binding Capacity 258 ug/dL (250-450); Transferrin Sat 27 % (20-55)
[2019-01-17 15:45] LABS: ALT 23 U/L (12-78); AST 23 U/L (15-37); Albumin 3.8 g/dL (3.4-5.0); Alkaline Phosphatase 86 U/L (46-116); Anion Gap 6.9 mmol/L (3-11); BUN 19 mg/dL (7-18); Bilirubin, Total 0.4 mg/dL (0.2-1.0); CO2 29.1 mmol/L (21.0-32.0); CREATININE 1.06 mg/dL (0.70-1.30); Calcium 9.3 mg/dL (8.5-10.1); Chloride 104 mmol/L (98-107); Cholesterol 137 mg/dL (50-200); Ferritin 47 ng/mL (8-388); Glucose 106 mg/dL (70-100); HDL Cholesterol 39 mg/dL (40-60); LDL CHOLESTEROL 78 mg/dL (<100); Potassium 4.3 mmol/L (3.5-5.1); Sodium 140 mmol/L (136-145); Triglyceride 118 mg/dL (30-150)
== END 2019-01-17 14:33 ==
PROVIDERS: PCP Internal Medicine; Visit Provider Internal Medicine
DX: D50.9 Iron deficiency anemia, unspecified (principal); E78.00 Pure hypercholesterolemia, unspecified; I10 Essential (primary) hypertension; R73.02 Impaired glucose tolerance (oral); I20.8 Other forms of angina pectoris; I48.92 Unspecified atrial flutter
CPT/HCPCS: 36415; 80053; 80061; 83721; 82728; 83540; 83550; 85025

== ENCOUNTER → 2019-02-20 13:06 | Outpatient (BNVA) | payer MEDICARE, SELFPAY | PROVIDERS: PCP Internal Medicine; Visit Provider Student in an Organized Health Care Education/Training Program | DX: I20.8 Other forms of angina pectoris (principal); I25.5 Ischemic cardiomyopathy; I48.92 Unspecified atrial flutter; I10 Essential (primary) hypertension; M79.10 Myalgia, unspecified site; D50.9 Iron deficiency anemia, unspecified | CPT/HCPCS: 99215 ==

== ENCOUNTER 2019-02-20 14:22 | Outpatient (CLI) | payer MEDICARE, SELFPAY ==
[2019-02-20 14:56] LABS: Abs Immature Grans 0.01 k/cumm (0.0-0.09); Absolute Basophil Count 0.03 k/cumm (0.0-0.2); Absolute Lymphocyte Count 1.47 k/cumm (1.2-3.4); Absolute Monocyte Count 0.63 k/cumm (0.11-0.7); Absolute Neutrophil Count 4.53 k/cumm (1.2-6.7); Basophils % 0.4; Eosinophils % 2.9; HCT 34.2 % (40.0-50.0); HGB 11.4 g/dL (13.5-17.5); Immature Grans % 0.1; Lymphocytes % 21.4; Mean Corp. HGB Concentration 33.3 g/dL (32.0-36.0); Mean Corpuscular Hemoglobin 29.4 pg (27.0-33.0); Mean Corpuscular Volume 88.1 fL (80-95); Monocytes % 9.2; Platelet Count 200 x1000/uL (130-400); RBC 3.88 m/cumm (4.50-6.00); RBC Distribution Width 15.5 % (11.8-14.1); White Blood Cell Count 6.87 k/cumm (4.4-10.8)
[2019-02-20 16:12] LABS: ALT 48 U/L (12-78); AST 43 U/L (15-37); Albumin 3.5 g/dL (3.4-5.0); Alkaline Phosphatase 86 U/L (46-116); Anion Gap 9.6 mmol/L (3-11); BUN 18 mg/dL (7-18); Bilirubin, Total 0.5 mg/dL (0.2-1.0); CO2 26.4 mmol/L (21.0-32.0); Calcium 8.7 mg/dL (8.5-10.1); Chloride 107 mmol/L (98-107); Estimated GFR 59.86 (mL/min/1.73m2); Ferritin 24 ng/mL (8-388); Glucose 129 mg/dL (70-100); Magnesium 1.7 mg/dL (1.8-2.4); Potassium 4.2 mmol/L (3.5-5.1); Sodium 143 mmol/L (136-145); TSH (W/Ref FT4) 1.25 uIU/mL (0.358-3.74); Total Protein 6.5 g/dL (6.4-8.2); Vitamin B12 420 pg/mL (193-986)
[2019-02-20 16:29] LABS: Bilirubin, Direct 0.15 mg/dL (0.00-0.20); Creatine Kinase 706 U/L (39-308)
[2019-02-21 06:10] LABS: Vitamin D 25 Total 14.3 ng/ml (30-100)
[2019-02-21 12:18] LABS: Transferrin 207 mg/dL (201-352)
== END 2019-02-20 14:42 ==
PROVIDERS: PCP Internal Medicine; Visit Provider Student in an Organized Health Care Education/Training Program
DX: I25.10 Atherosclerotic heart disease of native coronary artery without angina pectoris (principal); D50.9 Iron deficiency anemia, unspecified; I10 Essential (primary) hypertension; I42.9 Cardiomyopathy, unspecified; I20.8 Other forms of angina pectoris; I25.5 Ischemic cardiomyopathy; I48.92 Unspecified atrial flutter; M79.10 Myalgia, unspecified site
CPT/HCPCS: 80048; 80076; 82306; 82550; 99215; 82607; 82728; 83735; 84443; 84466; 85025

== ENCOUNTER 2019-03-02 12:55 | Emergency (ER) | payer MEDICARE, SELFPAY ==
[2019-03-02] VITALS (43 sets, daily range): BP systolic 129–181; BP diastolic 41–94; PULSE 37–48; RESP 11–22; TEMP 36.7; O2SAT 94–100
--- NOTE | 2019-03-02 13:22 | W.ED.GENAD ---
Discharge Plan Discharge Details Chief Complaint: Palpitatns Primary Care Provider: Yoko Esqueda ED Provider: Kit Hayden Home Meds and New Rx's Prescriptions: No Action fluticasone propionate 50 mcg/actuation spray,suspension 2 spray NS DAILY Qty: 3 RF: 3 clopidogrel [Plavix] 75 mg tablet 75 mg PO DAILY RF: 0 nitroglycerin 0.4 mg tablet, sublingual 0.4 mg SL Q5-15M PRNRF: 0 tramadol 50 mg tablet 50 mg PO QID PRN (Reason: pain) Qty: 120 RF: 0 acetaminophen-codeine [Tylenol-Codeine #4] 300-60 mg tablet 1 tab PO TID Qty: 90 RF: 0 metoprolol succinate 50 mg tablet extended release 24 hr 25 mg PO DAILY Qty: 90 RF: 3 amlodipine 10 mg tablet 10 mg PO DAILY Qty: 90 RF: 3 OneTouch Ultra Test 1 EACH strip 1 strip Miscellaneous DAILY Qty: 100 RF: 4 lancets [OneTouch Delica Lancets] 1 EACH misc 1 ea Intradermal DAILY Qty: 100 RF: 4 lisinopril 20 mg tablet 20 mg PO DAILY Qty: 90 RF: 3 esomeprazole magnesium [Nexium] 40 mg capsule,delayed release(DR/EC) 40 mg PO DAILY Qty: 90 RF: 3 albuterol sulfate [Proventil HFA] 90 mcg/actuation HFA aerosol inhaler 2 puff Inhalation QID PRN (Reason: shortness of breath or wheezing) Qty: 1 RF: 4 Eliquis 5 mg tablet 5 mg PO BID Qty: 60 RF: 11 cholecalciferol (vitamin D3) 5,000 unit capsule 5,000 unit PO DAILY Qty: 30 RF: 11 polyethylene glycol 3350 17 gram powder in packet 17 gm PO DAILY PRNRF: 0 Discharge Data Discharge Date/Time-TO BE ENTERED AT DEPARTURE: 03/02/19 17:05 Medical Decision Making 13:28 -- 68-year-old male with chemical chemo cardia myopathy, paroxysmal atrial flutter, here with symptomatic bradycardia, worse despite decreased dose of metoprolol 10 days ago. ECG reviewed and interpreted by me: Atrial fibrillation with presumed heart block with ventricular escape rhythm of 48 bpm. Patient is currently hypertensive. Pacer pads placed. Will check electrolytes and TSH. -- Labs reviewed. Mild hypomag noted. Will give mag 1g IV. 14:20 -- Called [facility] [place] center to request transfer. Cardiology not immediately available and backed up with multiple calls. Transfer center also notes likely no bed availability. Call to [facility]. Awaiting return call. 14:28 -- Spoke with Dr. Rand at [facility]. He will accept patient in transfer. HPI General Mode of arrival: ambulatory. Date/Time Provider Initiated Documentation: 03/02/19 13:12. Limitations to Documentation: no limitations. Information obtained by: patient. HPI Narrative: 68yo m with history of ischemic cardiomyopathy, heart failure with mid range ejection fraction stage B, LV function improved after revascularization with EF 50% as of December 2018, paroxysmal atrial flutter, hypertension, currently on metoprolol 25 mg that was decreased from 50 mg 10 days ago for bradycardia in the 50s noted at cardiology visit, here with concern that his heart rate is slow. Patient notes his heart rates been slow over the past 3 days. He notes worsening fatigue amd winded especially with any exertion over the past few days. Patient notes his heart rate has been as low as in the 30s. Symptoms are moderate to severe. His heart rate stays in the 30s or 40s and does not elevate further. He feels like it should be going faster. No associated chest pain. Related Data Home Medications Medication Instructions Recorded Confirmed Ruby RibbonTouch Ultra Test #100 strip 02/05/13 02/20/19 lancets [OneTouch Delica Lancets] #100 ea 02/05/13 02/20/19 fluticasone propionate 50 2 spray NS DAILY #3 gm 08/23/18 03/02/19 mcg/actuation nasal spray,suspension albuterol sulfate HFA 90 2 puff INHALATION QID PRN #1 11/23/18 02/20/19 mcg/actuation aerosol inhaler inhaler esomeprazole magnesium 40 mg 40 mg PO DAILY #90 tab-cap 11/23/18 03/02/19 capsule,delayed release lisinopril 20 mg tablet 20 mg PO DAILY #90 tab-cap 11/23/18 03/02/19 amlodipine 10 mg tablet 10 mg PO DAILY #90 tab 12/26/18 03/02/19 polyethylene glycol 3350 17 gm PO DAILY PRN 12/26/18 03/02/19 acetaminophen 300 mg-codeine 60 mg 1 tab PO TID #90 tab 01/09/19 03/02/19 tablet clopidogrel 75 mg tablet 75 mg PO DAILY 01/09/19 03/02/19 nitroglycerin 0.4 mg sublingual 0.4 mg SL Q5-15M PRN 01/09/19 03/02/19 tablet tramadol 50 mg tablet 50 mg PO QID PRN #120 tab 01/09/19 03/02/19 metoprolol succinate ER 50 mg 25 mg PO DAILY #90 tab 02/20/19 03/02/19 tablet,extended release 24 hr apixaban 5 mg tablet 5 mg PO BID #60 tab 02/22/19 03/02/19 cholecalciferol (vitamin D3) 5,000 5,000 unit PO DAILY #30 cap 02/22/19 03/02/19 unit capsule Previous Rx's Medication Instructions Recorded fluticasone propionate 50 2 spray NS DAILY #3 gm 08/23/18 mcg/actuation nasal spray,suspension albuterol sulfate HFA 90 2 puff INHALATION QID PRN #1 11/23/18 mcg/actuation aerosol inhaler inhaler esomeprazole magnesium 40 mg 40 mg PO DAILY #90 tab-cap 11/23/18 capsule,delayed release lisinopril 20 mg tablet 20 mg PO DAILY #90 tab-cap 11/23/18 amlodipine 10 mg tablet 10 mg PO DAILY #90 tab 12/26/18 acetaminophen 300 mg-codeine 60 mg 1 tab PO TID #90 tab 01/09/19 tablet tramadol 50 mg tablet 50 mg PO QID PRN #120 tab 01/09/19 metoprolol succinate ER 50 mg 25 mg PO DAILY #90 tab 02/20/19 tablet,extended release 24 hr apixaban 5 mg tablet 5 mg PO BID #60 tab 02/22/19 cholecalciferol (vitamin D3) 5,000 5,000 unit PO DAILY #30 cap 02/22/19 unit capsule Allergies Allergy/AdvReac Type Severity Reaction Status Date / Time Influenza Virus Vaccines Allergy Severe ? allergic Unverified 03/02/19 13:12 reaction to flu vaccine pravastatin AdvReac Intermediate Muscle and Unverified 03/02/19 13:12 joint pain General Stated Complaint: Palpitatns BRENT: 2 Review of Systems Review of Systems All systems reviewed & are unremarkable except as noted in HPI and below Constitutional Denies body ache(s) and Denies fever(s) Cardiovascular Denies chest pain, Denies syncope, Denies edema and Reports dyspnea on exertion Respiratory Denies cough and Reports dyspnea on exertion Neurologic Denies syncope [facility] Medical History Exertional angina (Chronic) Statin intolerance (Chronic) Impaired glucose tolerance (Chronic) Paroxysmal atrial flutter (Chronic) Tubular adenoma of colon (Chronic) Numbness and tingling in right hand (Chronic 04/18/16) Hypertension (Chronic 07/09/14) Hyperplasia of prostate (Chronic) Hypercholesterolemia (Chronic 04/01/13) Hearing loss (Chronic 10/04/13) Gastroesophageal reflux disease with esophagitis (Chronic 04/01/13) Depressive disorder (Chronic 04/01/13) Chronic pain syndrome (Chronic 04/01/13) Carpal tunnel syndrome (Chronic 10/16/12) Asthma (Chronic 10/04/13) Actinic keratosis (Chronic) Partial small bowel obstruction (Resolved) Constipation (Chronic) Iron deficiency anemia (Chronic) Cardiomyopathy (Chronic) Actinic keratosis Asthma BPH (benign prostatic hyperplasia) Carpal tunnel syndrome Chronic pain syndrome Depression GERD (gastroesophageal reflux disease) Hearing loss Hypercholesterolemia Hypertension Tubular adenoma of colon Surgical History 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) BACK/NECK SURGERY Colonoscopy - MAC EGD - MAC (05/14/18) left below knee amputation Social History Smoking/Tobacco Use Status: Former Tobacco Use Alcohol Intake: current Alcohol Intake frequency: a few times a month Drug use: Never Substance use type: does not use Household members: significant other Do you feel safe at home: Yes Do you feel safe in your relationship?: Yes Exam Const General: cooperative and no acute distress HENMT Head: normocephalic Mouth: moist mucous membranes Eyes Conjunctivae: normal conjunctivae Sclera: normal sclerae Neck Neck: trachea midline, supple and no JVD Resp Auscultation: clear to auscultation bilaterally, no rales, no rhonchi and no wheezes Cardio Jugular venous pressure: no JVD Rate: bradycardic and not tachycardic Rhythm: regular rhythm GI Palpation: soft, not firm, no guarding, no masses, not rigid and nontender Skin General skin exam: no rashes or lesions noted Neuro General: alert, awake, oriented x3 and tone normal Extrem General: no calf tenderness bilaterally (right) and no edema Left lower extremity: lower leg (BKA) Psych Appearance: grossly normal Course Vital Signs Temperature 36.7 C 03/02/19 13:08 Pulse 40 L 03/02/19 13:08 Respiratory Rate 14 03/02/19 13:08 Blood Pressure 173/60 H 03/02/19 13:08 Pulse Oximetry 97 03/02/19 13:08 Temperature 36.7 C 03/02/19 13:08 Temperature Source Temporal Artery Scan 03/02/19 13:08 Pulse 40 L 03/02/19 13:08 Respiratory Rate 14 03/02/19 13:08 Blood Pressure 173/60 H 03/02/19 13:08 Pulse Oximetry 97 03/02/19 13:08 Oxygen Delivery Method Room Air 03/02/19 13:08 Oxygen Flow Rate 0 03/02/19 13:08
--- NOTE | 2019-03-02 13:30 | ED.GENADUL_ITS ---
Discharge Plan Discharge Details Chief Complaint: Palpitatns Primary Care Provider: Yoko Esqueda ED Provider: Kit Hayden Home Meds and New Rx's Prescriptions: No Action fluticasone propionate 50 mcg/actuation spray,suspension 2 spray NS DAILY Qty: 3 RF: 3 clopidogrel [Plavix] 75 mg tablet 75 mg PO DAILY RF: 0 nitroglycerin 0.4 mg tablet, sublingual 0.4 mg SL Q5-15M PRNRF: 0 tramadol 50 mg tablet 50 mg PO QID PRN (Reason: pain) Qty: 120 RF: 0 acetaminophen-codeine [Tylenol-Codeine #4] 300-60 mg tablet 1 tab PO TID Qty: 90 RF: 0 metoprolol succinate 50 mg tablet extended release 24 hr 25 mg PO DAILY Qty: 90 RF: 3 amlodipine 10 mg tablet 10 mg PO DAILY Qty: 90 RF: 3 OneTouch Ultra Test 1 EACH strip 1 strip Miscellaneous DAILY Qty: 100 RF: 4 lancets [OneTouch Delica Lancets] 1 EACH misc 1 ea Intradermal DAILY Qty: 100 RF: 4 lisinopril 20 mg tablet 20 mg PO DAILY Qty: 90 RF: 3 esomeprazole magnesium [Nexium] 40 mg capsule,delayed release(DR/EC) 40 mg PO DAILY Qty: 90 RF: 3 albuterol sulfate [Proventil HFA] 90 mcg/actuation HFA aerosol inhaler 2 puff Inhalation QID PRN (Reason: shortness of breath or wheezing) Qty: 1 RF: 4 Eliquis 5 mg tablet 5 mg PO BID Qty: 60 RF: 11 cholecalciferol (vitamin D3) 5,000 unit capsule 5,000 unit PO DAILY Qty: 30 RF: 11 polyethylene glycol 3350 17 gram powder in packet 17 gm PO DAILY PRNRF: 0 Discharge Data Discharge Date/Time-TO BE ENTERED AT DEPARTURE: 03/02/19 17:05 Medical Decision Making 13:28 -- 68-year-old male with chemical chemo cardia myopathy, paroxysmal atrial flutter, here with symptomatic bradycardia, worse despite decreased dose of metoprolol 10 days ago. ECG reviewed and interpreted by me: Atrial fibrillation with presumed heart block with ventricular escape rhythm of 48 bpm. Patient is currently hypertensive. Pacer pads placed. Will check electrolytes and TSH. -- Labs reviewed. Mild hypomag noted. Will give mag 1g IV. 14:20 -- Called [facility] [place] transfer center to request transfer. Cardiology not immediately available and backed up with multiple calls. Transfer center also notes likely no bed availability. Call to [facility]. Awaiting return call. 14:28 -- Spoke with Dr. Rand at [facility]. He will accept patient in transfer. HPI General Mode of arrival: ambulatory . Date/Time Provider Initiated Documentation: 03/02/19 13:12 . Limitations to Documentation: no limitations . Information obtained by: patient . HPI Narrative: 68yo m with history of ischemic cardiomyopathy, heart failure with mid range ejection fraction stage B, LV function improved after revascularization with EF 50% as of December 2018, paroxysmal atrial flutter, hypertension, currently on metoprolol 25 mg that was decreased from 50 mg 10 days ago for bradycardia in the 50s noted at cardiology visit, here with concern that his heart rate is slow. Patient notes his heart rates been slow over the past 3 days. He notes worsening fatigue amd winded especially with any exertion over the past few days. Patient notes his heart rate has been as low as in the 30s. Symptoms are moderate to severe. His heart rate stays in the 30s or 40s and does not elevate further. He feels like it should be going faster. No associated chest pain. Related Data Home Medications Medication Instructions Recorded Confirmed IMayGouTouch Ultra Test #100 strip 02/05/13 02/20/19 lancets [OneTouch Delica Lancets] #100 ea 02/05/13 02/20/19 fluticasone propionate 50 2 spray NS DAILY #3 gm 08/23/18 03/02/19 mcg/actuation nasal spray,suspension albuterol sulfate HFA 90 2 puff INHALATION QID PRN #1 11/23/18 02/20/19 mcg/actuation aerosol inhaler inhaler esomeprazole magnesium 40 mg 40 mg PO DAILY #90 tab-cap 11/23/18 03/02/19 capsule,delayed release lisinopril 20 mg tablet 20 mg PO DAILY #90 tab-cap 11/23/18 03/02/19 amlodipine 10 mg tablet 10 mg PO DAILY #90 tab 12/26/18 03/02/19 polyethylene glycol 3350 17 gm PO DAILY PRN 12/26/18 03/02/19 acetaminophen 300 mg-codeine 60 mg 1 tab PO TID #90 tab 01/09/19 03/02/19 tablet clopidogrel 75 mg tablet 75 mg PO DAILY 01/09/19 03/02/19 nitroglycerin 0.4 mg sublingual 0.4 mg SL Q5-15M PRN 01/09/19 03/02/19 tablet tramadol 50 mg tablet 50 mg PO QID PRN #120 tab 01/09/19 03/02/19 metoprolol succinate ER 50 mg 25 mg PO DAILY #90 tab 02/20/19 03/02/19 tablet,extended release 24 hr apixaban 5 mg tablet 5 mg PO BID #60 tab 02/22/19 03/02/19 cholecalciferol (vitamin D3) 5,000 5,000 unit PO DAILY #30 cap 02/22/19 03/02/19 unit capsule Previous Rx's Medication Instructions Recorded fluticasone propionate 50 2 spray NS DAILY #3 gm 08/23/18 mcg/actuation nasal spray,suspension albuterol sulfate HFA 90 2 puff INHALATION QID PRN #1 11/23/18 mcg/actuation aerosol inhaler inhaler esomeprazole magnesium 40 mg 40 mg PO DAILY #90 tab-cap 11/23/18 capsule,delayed release lisinopril 20 mg tablet 20 mg PO DAILY #90 tab-cap 11/23/18 amlodipine 10 mg tablet 10 mg PO DAILY #90 tab 12/26/18 acetaminophen 300 mg-codeine 60 mg 1 tab PO TID #90 tab 01/09/19 tablet tramadol 50 mg tablet 50 mg PO QID PRN #120 tab 01/09/19 metoprolol succinate ER 50 mg 25 mg PO DAILY #90 tab 02/20/19 tablet,extended release 24 hr apixaban 5 mg tablet 5 mg PO BID #60 tab 02/22/19 cholecalciferol (vitamin D3) 5,000 5,000 unit PO DAILY #30 cap 02/22/19 unit capsule Allergies Allergy/AdvReac Type Severity Reaction Status Date / Time Influenza Virus Vaccines Allergy Severe ? allergic Unverified 03/02/19 13:12 reaction to flu vaccine pravastatin AdvReac Intermediate Muscle and Unverified 03/02/19 13:12 joint pain General Stated Complaint: Palpitatns BRENT: 2 Review of Systems Review of Systems All systems reviewed & are unremarkable except as noted in HPI and below Constitutional Denies body ache(s) and Denies fever(s) Cardiovascular Denies chest pain, Denies syncope, Denies edema and Reports dyspnea on exertion Respiratory Denies cough and Reports dyspnea on exertion Neurologic Denies syncope [facility] Medical History Exertional angina (Chronic) Statin intolerance (Chronic) Impaired glucose tolerance (Chronic) Paroxysmal atrial flutter (Chronic) Tubular adenoma of colon (Chronic) Numbness and tingling in right hand (Chronic 04/18/16) Hypertension (Chronic 07/09/14) Hyperplasia of prostate (Chronic) Hypercholesterolemia (Chronic 04/01/13) Hearing loss (Chronic 10/04/13) Gastroesophageal reflux disease with esophagitis (Chronic 04/01/13) Depressive disorder (Chronic 04/01/13) Chronic pain syndrome (Chronic 04/01/13) Carpal tunnel syndrome (Chronic 10/16/12) Asthma (Chronic 10/04/13) Actinic keratosis (Chronic) Partial small bowel obstruction (Resolved) Constipation (Chronic) Iron deficiency anemia (Chronic) Cardiomyopathy (Chronic) Actinic keratosis Asthma BPH (benign prostatic hyperplasia) Carpal tunnel syndrome Chronic pain syndrome Depression GERD (gastroesophageal reflux disease) Hearing loss Hypercholesterolemia Hypertension Tubular adenoma of colon Surgical History 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) BACK/NECK SURGERY Colonoscopy - MAC EGD - MAC (05/14/18) left below knee amputation Social History Smoking/Tobacco Use Status: Former Tobacco Use Alcohol Intake: current Alcohol Intake frequency: a few times a month Drug use: Never Substance use type: does not use Household members: significant other Do you feel safe at home: Yes Do you feel safe in your relationship?: Yes Exam Const General: cooperative and no acute distress HENMT Head: normocephalic Mouth: moist mucous membranes Eyes Conjunctivae: normal conjunctivae Sclera: normal sclerae Neck Neck: trachea midline, supple and no JVD Resp Auscultation: clear to auscultation bilaterally, no rales, no rhonchi and no wheezes Cardio Jugular venous pressure: no JVD Rate: bradycardic and not tachycardic Rhythm: regular rhythm GI Palpation: soft, not firm, no guarding, no masses, not rigid and nontender Skin General skin exam: no rashes or lesions noted Neuro General: alert, awake, oriented x3 and tone normal Extrem General: no calf tenderness bilaterally (right) and no edema Left lower extremity: lower leg (BKA) Psych Appearance: grossly normal Course Vital Signs Temperature 36.7 C 03/02/19 13:08 Pulse 40 L 03/02/19 13:08 Respiratory Rate 14 03/02/19 13:08 Blood Pressure 173/60 H 03/02/19 13:08 Pulse Oximetry 97 03/02/19 13:08 Temperature 36.7 C 03/02/19 13:08 Temperature Source Temporal Artery Scan 03/02/19 13:08 Pulse 40 L 03/02/19 13:08 Respiratory Rate 14 03/02/19 13:08 Blood Pressure 173/60 H 03/02/19 13:08 Pulse Oximetry 97 03/02/19 13:08 Oxygen Delivery Method Room Air 03/02/19 13:08 Oxygen Flow Rate 0 03/02/19 13:08
[2019-03-02 13:47] LABS: Absolute Basophil Count 0.02 k/cumm (0.0-0.2); Absolute Eosinophil Count 0.11 k/cumm (0.0-0.7); Absolute Lymphocyte Count 1.07 k/cumm (1.2-3.4); Absolute Monocyte Count 0.55 k/cumm (0.11-0.7); Absolute Neutrophil Count 5.31 k/cumm (1.2-6.7); Basophils % 0.3; Eosinophils % 1.6; HCT 34.3 % (40.0-50.0); HGB 11.3 g/dL (13.5-17.5); Lymphocytes % 15.2; Mean Corp. HGB Concentration 32.9 g/dL (32.0-36.0); Mean Corpuscular Hemoglobin 29.3 pg (27.0-33.0); Mean Corpuscular Volume 88.9 fL (80-95); Mean Platelet Volume 12.9 fL (8.0-11.0); Monocytes % 7.8; Neutrophils % 75.1; Platelet Count 196 x1000/uL (130-400); RBC 3.86 m/cumm (4.50-6.00); RBC Distribution Width 15.1 % (11.8-14.1); White Blood Cell Count 7.06 k/cumm (4.4-10.8)
[2019-03-02 13:49] LABS: Bilirubin Negative (Negative); Blood Negative (Negative); Clarity Clear; Glucose Negative (Negative); Ketones Negative (Negative); Leukocyte Esterase Negative (Negative); Nitrite Negative (Negative); Specific Gravity <= 1.005 (1.005-1.025); Urobilinogen 0.2 EU/dL (Up TO 0.2)
[2019-03-02 14:14] LABS: ALT 57 U/L (12-78); AST 36 U/L (15-37); Albumin 3.7 g/dL (3.4-5.0); Alkaline Phosphatase 99 U/L (46-116); Anion Gap 9.2 mmol/L (3-11); BUN 15 mg/dL (7-18); Bilirubin, Total 0.7 mg/dL (0.2-1.0); CO2 24.8 mmol/L (21.0-32.0); CREATININE 0.91 mg/dL (0.70-1.30); Calcium 8.9 mg/dL (8.5-10.1); Chloride 105 mmol/L (98-107); Glucose 123 mg/dL (70-100); Magnesium 1.7 mg/dL (1.8-2.4); NT-proBNP 3348 pg/mL; Potassium 3.9 mmol/L (3.5-5.1); Sodium 139 mmol/L (136-145); TSH (W/Ref FT4) 2.18 uIU/mL (0.358-3.74); Total Protein 7.1 g/dL (6.4-8.2); Troponin I 0.02 ng/mL (0.00-0.06)
[2019-03-02] MEDS: MAGNESIUM SULFATE 1 GM/100 ML BAG IVPB (14:39)
== END 2019-03-02 17:05 ==
LOC: ER 14:00
PROVIDERS: Emergency Provider Student in an Organized Health Care Education/Training Program; PCP Internal Medicine
DX: R00.1 Bradycardia, unspecified (principal); I48.92 Unspecified atrial flutter; I11.0 Hypertensive heart disease with heart failure; I42.2 Other hypertrophic cardiomyopathy; E83.42 Hypomagnesemia; I50.9 Heart failure, unspecified
CPT/HCPCS: 36415; 80053; 93005; 96365; 96366; 99285; 81003; 83735; 83880; 84443; 84484; 85025; 93010; 99284; J3475

== ENCOUNTER → 2019-03-19 11:23 | Outpatient (BNVA) | payer MEDICARE, SELFPAY | PROVIDERS: PCP Internal Medicine; Visit Provider Nurse Practitioner Family | DX: Z48.89 Encounter for other specified surgical aftercare (principal); Z95.0 Presence of cardiac pacemaker; I10 Essential (primary) hypertension | CPT/HCPCS: 99212 ==

== ENCOUNTER 2019-04-02 13:40 | Outpatient (CLI) | payer MEDICARE, SELFPAY ==
[2019-04-02 14:07] LABS: HCT 35.5 % (40.0-50.0); HGB 11.6 g/dL (13.5-17.5); Mean Corp. HGB Concentration 32.7 g/dL (32.0-36.0); Mean Corpuscular Volume 85.5 fL (80-95); Mean Platelet Volume 11.9 fL (8.0-11.0); Platelet Count 209 x1000/uL (130-400); RBC 4.15 m/cumm (4.50-6.00); RBC Distribution Width 13.6 % (11.8-14.1); White Blood Cell Count 7.35 k/cumm (4.4-10.8)
[2019-04-02 15:23] LABS: Iron 37 ug/dL (50-175); Total Iron Binding Capacity 323 ug/dL (250-450); Transferrin Sat 11 % (20-55)
[2019-04-02 15:46] LABS: Ferritin 25 ng/mL (8-388)
== END 2019-04-02 14:00 ==
PROVIDERS: PCP Internal Medicine; Visit Provider Internal Medicine
DX: D50.9 Iron deficiency anemia, unspecified (principal); I48.92 Unspecified atrial flutter; I10 Essential (primary) hypertension; I25.10 Atherosclerotic heart disease of native coronary artery without angina pectoris; Z45.010 Encounter for checking and testing of cardiac pacemaker pulse generator [battery]
CPT/HCPCS: 36415; 85027; 93288; 93289; 82728; 83540; 83550; 99213

== ENCOUNTER → 2019-05-02 08:44 | Outpatient (BNVA) | payer MEDICARE, SELFPAY | PROVIDERS: PCP Internal Medicine; Visit Provider Student in an Organized Health Care Education/Training Program | DX: I20.8 Other forms of angina pectoris (principal); Z95.5 Presence of coronary angioplasty implant and graft; I48.92 Unspecified atrial flutter; R00.1 Bradycardia, unspecified; Z95.0 Presence of cardiac pacemaker; I10 Essential (primary) hypertension; D50.9 Iron deficiency anemia, unspecified; I25.10 Atherosclerotic heart disease of native coronary artery without angina pectoris | CPT/HCPCS: 99214 ==

== ENCOUNTER 2019-05-13 14:06 | Outpatient (CLI) | payer MEDICARE, SELFPAY ==
[2019-05-13 15:21] LABS: Abs Immature Grans 0.01 k/cumm (0.0-0.09); Absolute Basophil Count 0.03 k/cumm (0.0-0.2); Absolute Lymphocyte Count 1.51 k/cumm (1.2-3.4); Absolute Monocyte Count 0.67 k/cumm (0.11-0.7); Basophils % 0.4; Eosinophils % 1.4; HCT 32.8 % (40.0-50.0); HGB 10.7 g/dL (13.5-17.5); Immature Grans % 0.1; Lymphocytes % 21.5; Mean Corp. HGB Concentration 32.6 g/dL (32.0-36.0); Mean Corpuscular Hemoglobin 27.2 pg (27.0-33.0); Mean Corpuscular Volume 83.5 fL (80-95); Mean Platelet Volume 11.7 fL (8.0-11.0); Monocytes % 9.5; Neutrophils % 67.1; Platelet Count 248 x1000/uL (130-400); RBC 3.93 m/cumm (4.50-6.00); RBC Distribution Width 13.3 % (11.8-14.1); White Blood Cell Count 7.02 k/cumm (4.4-10.8)
[2019-05-13 16:09] LABS: Iron 26 ug/dL (50-175); Total Iron Binding Capacity 376 ug/dL (250-450); Transferrin Sat 7 % (20-55)
[2019-05-13 16:22] LABS: Ferritin 14 ng/mL (8-388)
== END 2019-05-13 14:26 ==
PROVIDERS: PCP Internal Medicine; Visit Provider Internal Medicine
DX: D45 Polycythemia vera (principal); R50.9 Fever, unspecified; D50.9 Iron deficiency anemia, unspecified
CPT/HCPCS: 36415; 82728; 83540; 83550; 85025

== ENCOUNTER 2019-06-06 01:42 | Outpatient (RCR) | payer MEDICARE, SELFPAY ==
[2019-05-23] MEDS: IRON SUCROSE COMPLEX 200 MG in Normal Saline 100 ML 110 MG IVPB (13:13)
[2019-05-23] MEDS: Normal Saline Flush 10 ML SYR IVP (13:14)
[2019-05-30] MEDS: IRON SUCROSE COMPLEX 200 MG in Normal Saline 100 ML 220 MG IVPB (13:10)
[2019-05-30] MEDS: Normal Saline Flush 10 ML SYR IVP (13:11)
[2019-06-06] MEDS: IRON SUCROSE COMPLEX 200 MG in Normal Saline 100 ML 220 MG IVPB (13:18)
[2019-06-06] MEDS: Normal Saline Flush 10 ML SYR IVP (13:19)
== END 2019-06-12 23:59 | disposition home or self-care (01) ==
LOC: INF 01:42
PROVIDERS: PCP Internal Medicine; Visit Provider Internal Medicine
DX: D50.9 Iron deficiency anemia, unspecified (principal)
CPT/HCPCS: 96365; J1756

== ENCOUNTER 2019-06-14 03:37 | Outpatient (RCR) | payer MEDICARE, SELFPAY ==
[2019-06-14] MEDS: Normal Saline Flush 10 ML SYR IVP (13:24)
== END 2019-07-13 23:59 | disposition home or self-care (01) ==
LOC: INF 03:37
PROVIDERS: PCP Internal Medicine; Visit Provider Internal Medicine
DX: D50.9 Iron deficiency anemia, unspecified (principal)
CPT/HCPCS: 96365; J1756

== ENCOUNTER → 2019-06-25 12:47 | Outpatient (BNVA) | payer MEDICARE, SELFPAY | PROVIDERS: PCP Internal Medicine; Visit Provider Nurse Practitioner Primary Care | DX: I48.92 Unspecified atrial flutter (principal); E78.00 Pure hypercholesterolemia, unspecified; Z45.010 Encounter for checking and testing of cardiac pacemaker pulse generator [battery]; I10 Essential (primary) hypertension; I25.10 Atherosclerotic heart disease of native coronary artery without angina pectoris | CPT/HCPCS: 93280; 99214 ==

== ENCOUNTER 2019-07-03 13:29 | Outpatient (CLI) | payer MEDICARE, SELFPAY ==
[2019-07-03 14:08] LABS: Abs Immature Grans 0.01 k/cumm (0.0-0.09); Absolute Basophil Count 0.03 k/cumm (0.0-0.2); Absolute Eosinophil Count 0.08 k/cumm (0.0-0.7); Absolute Monocyte Count 0.59 k/cumm (0.11-0.7); Absolute Neutrophil Count 4.67 k/cumm (1.2-6.7); Basophils % 0.4; Eosinophils % 1.1; HCT 38.2 % (40.0-50.0); HGB 12.4 g/dL (13.5-17.5); Immature Grans % 0.1; Mean Corp. HGB Concentration 32.5 g/dL (32.0-36.0); Mean Corpuscular Hemoglobin 27.8 pg (27.0-33.0); Mean Corpuscular Volume 85.7 fL (80-95); Mean Platelet Volume 11.5 fL (8.0-11.0); Monocytes % 8.3; Neutrophils % 66.1; Platelet Count 270 x1000/uL (130-400); RBC 4.46 m/cumm (4.50-6.00); RBC Distribution Width 17.1 % (11.8-14.1); White Blood Cell Count 7.08 k/cumm (4.4-10.8)
[2019-07-03 14:41] LABS: Iron 71 ug/dL (50-175); Total Iron Binding Capacity 302 ug/dL (250-450); Transferrin Sat 24 % (20-55)
[2019-07-03 14:56] LABS: Ferritin 104 ng/mL (8-388)
== END 2019-07-03 13:49 ==
PROVIDERS: PCP Internal Medicine; Visit Provider Internal Medicine
DX: D45 Polycythemia vera (principal); R50.9 Fever, unspecified; D50.9 Iron deficiency anemia, unspecified
CPT/HCPCS: 36415; 82728; 83540; 83550; 85025

== ENCOUNTER → 2019-07-30 13:14 | Outpatient (BNVA) | payer MEDICARE, SELFPAY | PROVIDERS: PCP Internal Medicine; Visit Provider Nurse Practitioner Primary Care | DX: I25.10 Atherosclerotic heart disease of native coronary artery without angina pectoris (principal); Z95.0 Presence of cardiac pacemaker; I48.92 Unspecified atrial flutter; I10 Essential (primary) hypertension | CPT/HCPCS: 99213 ==

== ENCOUNTER 2019-08-05 13:36 | Outpatient (CLI) | payer MEDICARE, SELFPAY ==
[2019-08-05 14:07] LABS: Abs Immature Grans 0.02 k/cumm (0.0-0.09); Absolute Basophil Count 0.05 k/cumm (0.0-0.2); Absolute Eosinophil Count 0.15 k/cumm (0.0-0.7); Absolute Lymphocyte Count 1.59 k/cumm (1.2-3.4); Absolute Monocyte Count 0.53 k/cumm (0.11-0.7); Absolute Neutrophil Count 3.79 k/cumm (1.2-6.7); Basophils % 0.8; Eosinophils % 2.4; HCT 36.3 % (40.0-50.0); Immature Grans % 0.3; Lymphocytes % 25.9; Mean Corp. HGB Concentration 33.1 g/dL (32.0-36.0); Mean Corpuscular Hemoglobin 28.2 pg (27.0-33.0); Mean Corpuscular Volume 85.2 fL (80-95); Mean Platelet Volume 11.1 fL (8.0-11.0); Monocytes % 8.6; Platelet Count 267 x1000/uL (130-400); RBC 4.26 m/cumm (4.50-6.00); RBC Distribution Width 15.9 % (11.8-14.1); White Blood Cell Count 6.13 k/cumm (4.4-10.8)
[2019-08-05 14:55] LABS: Iron 67 ug/dL (50-175); Total Iron Binding Capacity 306 ug/dL (250-450); Transferrin Sat 22 % (20-55)
[2019-08-05 14:58] LABS: ALT 25 U/L (16-63); AST 20 U/L (15-37); Albumin 3.8 g/dL (3.4-5.0); Alkaline Phosphatase 82 U/L (46-116); BUN 15 mg/dL (7-18); Bilirubin, Total 0.4 mg/dL (0.2-1.0); CREATININE 1.17 mg/dL (0.70-1.30); Chloride 104 mmol/L (98-107); Ferritin 29 ng/mL (8-388); Glucose 113 mg/dL (70-100); Potassium 4.2 mmol/L (3.5-5.1); Sodium 140 mmol/L (136-145)
== END 2019-08-05 13:56 ==
PROVIDERS: PCP Internal Medicine; Visit Provider Internal Medicine
DX: D45 Polycythemia vera (principal); D50.9 Iron deficiency anemia, unspecified; R50.9 Fever, unspecified; I10 Essential (primary) hypertension; K92.2 Gastrointestinal hemorrhage, unspecified; Z95.0 Presence of cardiac pacemaker
CPT/HCPCS: 80053; 82728; 83540; 83550; 85025

== ENCOUNTER → 2019-09-05 10:05 | Outpatient (BNVA) | payer MEDICARE, SELFPAY | PROVIDERS: PCP Internal Medicine; Referring Provider Internal Medicine; Visit Provider Internal Medicine Cardiovascular Disease | DX: I25.10 Atherosclerotic heart disease of native coronary artery without angina pectoris (principal); I48.92 Unspecified atrial flutter; Z95.0 Presence of cardiac pacemaker; Z78.9 Other specified health status; I10 Essential (primary) hypertension; Z79.01 Long term (current) use of anticoagulants | CPT/HCPCS: 99204; 99215 ==

== ENCOUNTER 2019-10-02 14:01 | Outpatient (CLI) | payer MEDICARE, SELFPAY ==
[2019-10-02 14:26] LABS: Abs Immature Grans 0.01 k/cumm (0.0-0.09); Absolute Basophil Count 0.03 k/cumm (0.0-0.2); Absolute Eosinophil Count 0.09 k/cumm (0.0-0.7); Absolute Lymphocyte Count 1.95 k/cumm (1.2-3.4); Absolute Monocyte Count 0.73 k/cumm (0.11-0.7); Absolute Neutrophil Count 5.54 k/cumm (1.2-6.7); Basophils % 0.4; Eosinophils % 1.1; HGB 12.9 g/dL (13.5-17.5); Immature Grans % 0.1; Lymphocytes % 23.4; Mean Corp. HGB Concentration 33.1 g/dL (32.0-36.0); Mean Corpuscular Hemoglobin 28.1 pg (27.0-33.0); Monocytes % 8.7; Neutrophils % 66.3; Platelet Count 261 x1000/uL (130-400); RBC 4.59 m/cumm (4.50-6.00); White Blood Cell Count 8.35 k/cumm (4.4-10.8)
[2019-10-02 15:20] LABS: Iron 82 ug/dL (65-175); Total Iron Binding Capacity 340 ug/dL (250-450); Transferrin Sat 24 % (20-55)
== END 2019-10-02 14:21 ==
PROVIDERS: PCP Internal Medicine; Visit Provider Internal Medicine
DX: D50.9 Iron deficiency anemia, unspecified (principal); R50.9 Fever, unspecified
CPT/HCPCS: 36415; 83540; 83550; 85025

== ENCOUNTER 2019-11-27 14:45 | Outpatient (CLI) | payer MEDICARE, SELFPAY ==
[2019-11-27 16:03] LABS: Abs Immature Grans 0.01 k/cumm (0.0-0.09); Absolute Basophil Count 0.05 k/cumm (0.0-0.2); Absolute Lymphocyte Count 2.13 k/cumm (1.2-3.4); Absolute Monocyte Count 0.77 k/cumm (0.11-0.7); Absolute Neutrophil Count 5.25 k/cumm (1.2-6.7); Basophils % 0.6; Eosinophils % 1.2; HCT 37.4 % (40.0-50.0); HGB 12.3 g/dL (13.5-17.5); Immature Grans % 0.1 %; Lymphocytes % 25.6; Mean Corp. HGB Concentration 32.9 g/dL (32.0-36.0); Mean Corpuscular Volume 85.2 fL (80-95); Mean Platelet Volume 11.5 fL (8.0-11.0); Monocytes % 9.3; Neutrophils % 63.2; Platelet Count 285 x1000/uL (130-400); RBC 4.39 m/cumm (4.50-6.00); RBC Distribution Width 13.6 % (11.8-14.1); White Blood Cell Count 8.31 k/cumm (4.4-10.8)
[2019-11-27 16:13] LABS: Iron 52 ug/dL (65-175); Total Iron Binding Capacity 365 ug/dL (250-450); Transferrin Sat 14 % (20-55)
== END 2019-11-27 15:05 ==
PROVIDERS: PCP Internal Medicine; Visit Provider Internal Medicine
DX: D50.9 Iron deficiency anemia, unspecified (principal); R50.9 Fever, unspecified
CPT/HCPCS: 36415; 83540; 83550; 85025

== ENCOUNTER 2020-01-23 14:01 | Outpatient (CLI) | payer MEDICARE, SELFPAY ==
[2020-01-23 14:38] LABS: Abs Immature Grans 0.02 k/cumm (0.0-0.09); Absolute Basophil Count 0.05 k/cumm (0.0-0.2); Absolute Lymphocyte Count 1.51 k/cumm (1.2-3.4); Absolute Monocyte Count 0.59 k/cumm (0.11-0.7); Absolute Neutrophil Count 4.18 k/cumm (1.2-6.7); Basophils % 0.8; Eosinophils % 1.6; HCT 33.9 % (40.0-50.0); HGB 10.8 g/dL (13.5-17.5); Immature Grans % 0.3 %; Lymphocytes % 23.4; Mean Corp. HGB Concentration 31.9 g/dL (32.0-36.0); Mean Corpuscular Hemoglobin 26.7 pg (27.0-33.0); Mean Corpuscular Volume 83.9 fL (80-95); Monocytes % 9.1; Neutrophils % 64.8; Platelet Count 279 x1000/uL (130-400); RBC 4.04 m/cumm (4.50-6.00); RBC Distribution Width 13.2 % (11.8-14.1); White Blood Cell Count 6.45 k/cumm (4.4-10.8)
[2020-01-23 15:05] LABS: Iron 30 ug/dL (65-175); Total Iron Binding Capacity 396 ug/dL (250-450); Transferrin Sat 8 % (20-55)
[2020-01-23 15:19] LABS: Ferritin 14 ng/mL (26-388)
== END 2020-01-23 14:21 ==
PROVIDERS: PCP Internal Medicine; Visit Provider Internal Medicine
DX: D45 Polycythemia vera (principal); R50.9 Fever, unspecified; K92.2 Gastrointestinal hemorrhage, unspecified
CPT/HCPCS: 36415; 82728; 83540; 83550; 85025

== ENCOUNTER 2020-02-07 03:51 | Outpatient (RCR) | payer MEDICARE, SELFPAY ==
[2020-02-07] MEDS: IRON SUCROSE COMPLEX 200 MG in Normal Saline 100 ML 440 MG IVPB (13:22)
[2020-02-07] MEDS: Normal Saline Flush 10 ML SYR IVP (13:22)
== END 2020-02-11 23:59 | disposition home or self-care (01) ==
LOC: INF 03:51
PROVIDERS: PCP Family Medicine; Visit Provider Internal Medicine
DX: D50.9 Iron deficiency anemia, unspecified (principal)
CPT/HCPCS: 96365; J1756

== ENCOUNTER 2020-02-28 13:00 | Outpatient (RCR) | payer MEDICARE, SELFPAY ==
[2020-02-14] MEDS: IRON SUCROSE COMPLEX 200 MG in Normal Saline 100 ML 440 MG IVPB (13:05)
[2020-02-14] MEDS: Normal Saline Flush 10 ML SYR IVP (13:05)
[2020-02-21] MEDS: Normal Saline Flush 10 ML SYR IVP (13:03)
[2020-02-21] MEDS: IRON SUCROSE COMPLEX 200 MG in Normal Saline 100 ML 440 MG IVPB (13:03)
[2020-02-28] MEDS: Normal Saline Flush 10 ML SYR IVP (13:12)
[2020-02-28] MEDS: IRON SUCROSE COMPLEX 200 MG in Normal Saline 100 ML 440 MG IVPB (13:12)
== END 2020-03-12 23:59 | disposition home or self-care (01) ==
LOC: INF 13:00
PROVIDERS: PCP Family Medicine; Visit Provider Family Medicine
DX: D50.9 Iron deficiency anemia, unspecified (principal)
CPT/HCPCS: 96365; 96374; J1756

== ENCOUNTER → 2020-03-05 14:36 | Outpatient (BNVA) | payer MEDICARE, SELFPAY | PROVIDERS: PCP Family Medicine; Referring Provider Internal Medicine; Visit Provider Internal Medicine Cardiovascular Disease | DX: I25.10 Atherosclerotic heart disease of native coronary artery without angina pectoris (principal); I48.92 Unspecified atrial flutter; E78.00 Pure hypercholesterolemia, unspecified; I10 Essential (primary) hypertension | CPT/HCPCS: 99442; 99213 ==

== ENCOUNTER → 2020-04-15 13:48 | Outpatient (BNVA) | payer MEDICARE, SELFPAY | PROVIDERS: PCP Family Medicine; Referring Provider Internal Medicine; Visit Provider Internal Medicine Cardiovascular Disease | DX: I48.0 Paroxysmal atrial fibrillation (principal); Z45.018 Encounter for adjustment and management of other part of cardiac pacemaker | CPT/HCPCS: 93280; 99212 ==

== ENCOUNTER 2020-04-15 14:21 | Outpatient (CLI) | payer MEDICARE, SELFPAY | END 2020-04-15 14:41 | PROVIDERS: PCP Family Medicine; Visit Provider Internal Medicine Cardiovascular Disease | DX: I25.10 Atherosclerotic heart disease of native coronary artery without angina pectoris (principal); I48.0 Paroxysmal atrial fibrillation; Z95.0 Presence of cardiac pacemaker | CPT/HCPCS: 93280; 99212; 93005; 93010 ==

== ENCOUNTER 2020-05-21 01:34 | Outpatient (CLI) | payer MEDICARE, SELFPAY ==
[2020-05-21 09:32] LABS: HCT 39.7 % (40.0-50.0); HGB 13.4 g/dL (13.5-17.5); Mean Corp. HGB Concentration 33.8 g/dL (32.0-36.0); Mean Corpuscular Hemoglobin 28.8 pg (27.0-33.0); Mean Corpuscular Volume 85.4 fL (80-95); Mean Platelet Volume 10.5 fL (8.0-11.0); Platelet Count 243 x1000/uL (130-400); RBC 4.65 m/cumm (4.50-6.00); RBC Distribution Width 15.2 % (11.8-14.1); White Blood Cell Count 6.91 k/cumm (4.4-10.8)
[2020-05-21 10:00] LABS: Hemoglobin A1C 5.9 % (3.8-5.6)
[2020-05-21 10:45] LABS: ALT 30 U/L (16-63); AST 23 U/L (15-37); Albumin 3.9 g/dL (3.4-5.0); Alkaline Phosphatase 82 U/L (46-116); Anion Gap 10.6 mmol/L (3-11); BUN 15 mg/dL (7-18); Bilirubin, Total 0.5 mg/dL (0.2-1.0); CO2 25.4 mmol/L (21.0-32.0); CREATININE 0.93 mg/dL (0.70-1.30); Calcium 9.4 mg/dL (8.5-10.1); Calculated LDL 161 mg/dL (<100); Chloride 104 mmol/L (98-107); Cholesterol 244 mg/dL (<200); Glucose 110 mg/dL (74-106); HDL Cholesterol 54 mg/dL (40-60); Potassium 4.2 mmol/L (3.5-5.1); Sodium 140 mmol/L (136-145); Total Protein 7.4 g/dL (6.4-8.2); Triglyceride 149 mg/dL (<150)
== END 2020-05-21 01:54 ==
PROVIDERS: PCP Family Medicine; Visit Provider Family Medicine
DX: E78.00 Pure hypercholesterolemia, unspecified (principal); R73.02 Impaired glucose tolerance (oral); I10 Essential (primary) hypertension
CPT/HCPCS: 36415; 80053; 80061; 85027; 83036

== ENCOUNTER → 2020-09-01 11:03 | Outpatient (BNVA) | payer MEDICARE, MEDICAID, SELFPAY | PROVIDERS: PCP Family Medicine; Referring Provider Family Medicine; Visit Provider Internal Medicine Cardiovascular Disease | DX: I25.10 Atherosclerotic heart disease of native coronary artery without angina pectoris (principal); Z95.0 Presence of cardiac pacemaker; I10 Essential (primary) hypertension | CPT/HCPCS: 99214 ==

== ENCOUNTER 2020-10-17 11:04 | Emergency (ER) | payer MEDICARE, MEDICAID, SELFPAY ==
[2020-10-17] VITALS (21 sets, daily range): BP systolic 94–131; BP diastolic 63–101; PULSE 70–131; RESP 12–27; TEMP 36.4; O2SAT 96–99
--- NOTE | 2020-10-17 11:23 | ED.GENADUL_ITS ---
Discharge Plan Disposition Patient Disposition: HOME Condition: Stable Discharge Details Clinical Impression: Urinary tract infection, Fall, Acute hip pain, Dehydration Primary Care Provider: Monica Hooker ED Provider: Shahriar Vyas Home Meds and New Rx's Prescriptions: New levofloxacin 750 mg tablet 750 mg PO DAILY Qty: 5 RF: 0 Continued nitroglycerin 0.4 mg tablet, sublingual 0.4 mg SL Q5-15M PRNRF: 0 lisinopril 20 mg tablet 20 mg PO DAILY Qty: 90 RF: 3 metoprolol succinate 25 mg tablet extended release 24 hr 25 mg PO DAILY Qty: 90 RF: 6 (DME) blood sugar diagnostic [[employer] Ultra Test] 1 EACH strip 1 strip Miscellaneous DAILY Qty: 100 RF: 4 (DME) lancets [[employer] Delica Lancets] 1 EACH misc 1 ea Intradermal DAILY Qty: 100 RF: 4 albuterol sulfate [Proventil HFA] 90 mcg/actuation HFA aerosol inhaler 2 puff Inhalation QID PRN (Reason: shortness of breath or wheezing) Qty: 1 RF: 4 Eliquis 5 mg tablet 5 mg PO BID Qty: 60 RF: 11 polyethylene glycol 3350 17 gram powder in packet 17 gm PO DAILY PRN (Reason: constipation) Qty: 30 RF: 0 fluticasone propionate 50 mcg/actuation spray,suspension 2 spray NS DAILY Qty: 3 RF: 3 amlodipine 10 mg tablet 10 mg PO DAILY Qty: 90 RF: 3 Venofer 200 mg iron/10 mL solution 200 mg IV QWEEK Qty: 50 RF: 3 cholecalciferol (vitamin D3) 125 mcg (5,000 unit) capsule 5,000 unit PO DAILY Qty: 90 RF: 3 esomeprazole magnesium 40 mg capsule,delayed release(DR/EC) 40 mg PO DAILY Qty: 90 RF: 3 rosuvastatin 5 mg tablet 5 mg PO DAILY Qty: 90 RF: 3 acetaminophen-codeine 300-60 mg tablet 1 tab PO TID PRN (Reason: pain) Qty: 90 RF: 0 tramadol 50 mg tablet 50 mg PO Q6H PRN (Reason: pain) Qty: 120 RF: 5 aspirin 81 mg Tablet 81 mg PO DAILY RF: 0 Discharge Instructions Instructions: Dehydration (ED), Urinary Tract Infection in Men (ED) Additional Instructions: your workup showed dehydration and a urinary tract infection, no bones were broken follow up as scheduled with your primary care provider and you should be contacted with an appointment with urology if you feel more ill, have severe worsening pain or fevers return to the emergency department Medical Decision Making 70 yo male with hx of htn, aflutter on eliquis, hld, pacemaker, who comes in after he fell on Monday on his way to the bathroom. He states he has been having general weakness for months now and gets iron infusions intermittently. He states he tripped and couldn't catch himself, no head trauma or loc. He has had left hip and flank pain so came here for an evaluation. He also notes blood in his urine that has been going on weeks now, no dysuria . He does have b ruising over the left hip and can fully range the hip. No distal leg pain and normal sensation and pulses. Suspect contusion but will image to evaluate for fx and given the hematuria obtain renal colic ct to evaluate for kidney stone vs possible kidney tumor. No headache and no midline neck pain and full rom. He has no chest pain, dyspnea or abdominal pain. He declines pain meds at this time, took tylenol with codeine prior to arrival. labs show mild increase in anion gap and creatinine likely from dehydration. His ct shows no fracture does have nonspecific inflammation of anterior bladder wall which could be from a uti. He has no ruq pain or tenderness. Advised of ct findings and he feels well enough to be discharged and has f/u with pcp . Also will refer to urology for bladder findings and reported blood in his urine though has none here. Return precautions given Differential Diagnosis Differential Diagnosis: contusion, hematuria, kidney stone Medical Records Medical records reviewed: Yes I reviewed the patient's medical records. Imaging Data Radiologic Study: Attestation: I personally reviewed and interpreted this imaging study as follows: Imaging: CT Scan Radiologist's impression: IMPRESSION: 1. Multiple gallstones in the gallbladder. 2. There is no evidence of renal or ureteral calcifications.. 3. Diverticulosis of the rectosigmoid. No diverticulitis.. 4. Anterior bladder wall measures 14 mm. This is nonspecific and may represent inflammation or infection. Neoplastic process and neurogenic bladder are included in the differential. 5. Umbilical hernia contains bowel. Series 2, image 89. No bowel obstruction.. Lab Data Lab results reviewed: Yes I reviewed the patient's lab results. HPI General Mode of arrival: ambulatory . Date/Time Provider Initiated Documentation: 10/17/20 11:06 . Limitations to Documentation: no limitations . Information obtained by: patient . History of Present Illness 70 year old M presents to the emergency department with the chief complaint of left hip pain, described as moderate, Patient started experiencing this day(s) (3) and it has been constant. No relieving factors improve symptom(s), No exacerbating factors reported . Related Data Home Medications Medication Instructions Recorded Confirmed blood sugar diagnostic [OneTouch #100 strip 02/05/13 05/12/20 Ultra Test] lancets [[employer] Lancets] #100 ea 02/05/13 05/12/20 albuterol sulfate 90 mcg/actuation 2 puff INHALATION QID PRN #1 11/23/18 10/17/20 aerosol inhaler inhaler nitroglycerin 0.4 mg sublingual 0.4 mg SL Q5-15M PRN 01/09/19 10/17/20 tablet apixaban 5 mg tablet 5 mg PO BID #60 tab 02/22/19 10/17/20 polyethylene glycol 3350 17 gram 17 gm PO DAILY PRN #30 each 08/08/19 10/17/20 oral powder packet fluticasone propionate 50 2 spray NS DAILY #3 gm 10/16/19 10/17/20 mcg/actuation nasal spray,suspension lisinopril 20 mg tablet 20 mg PO DAILY #90 tab-cap 11/11/19 10/17/20 amlodipine 10 mg tablet 10 mg PO DAILY #90 tab 12/24/19 10/17/20 iron sucrose 200 mg iron/10 mL 200 mg IV QWEEK #50 ml 01/29/20 10/17/20 intravenous solution cholecalciferol (vitamin D3) 125 5,000 unit PO DAILY #90 cap 02/21/20 10/17/20 mcg (5,000 unit) capsule esomeprazole magnesium 40 mg 40 mg PO DAILY #90 cap 03/04/20 10/17/20 capsule,delayed release metoprolol succinate 25 mg 25 mg PO DAILY #90 tab 03/05/20 10/17/20 tablet,extended release 24 hr rosuvastatin 5 mg tablet 5 mg PO DAILY #90 tab 06/02/20 10/17/20 acetaminophen 300 mg-codeine 60 mg 1 tab PO TID PRN #90 tab 08/05/20 10/17/20 tablet tramadol 50 mg tablet 50 mg PO Q6H PRN #120 tab 08/05/20 10/17/20 aspirin 81 mg PO DAILY 10/17/20 10/17/20 levofloxacin 750 mg PO DAILY #5 tab 10/17/20 Previous Rx's Medication Instructions Recorded albuterol sulfate 90 mcg/actuation 2 puff INHALATION QID PRN #1 11/23/18 aerosol inhaler inhaler apixaban 5 mg tablet 5 mg PO BID #60 tab 02/22/19 polyethylene glycol 3350 17 gram 17 gm PO DAILY PRN #30 each 08/08/19 oral powder packet fluticasone propionate 50 2 spray NS DAILY #3 gm 10/16/19 mcg/actuation nasal spray,suspension lisinopril 20 mg tablet 20 mg PO DAILY #90 tab-cap 11/11/19 amlodipine 10 mg tablet 10 mg PO DAILY #90 tab 12/24/19 iron sucrose 200 mg iron/10 mL 200 mg IV QWEEK #50 ml 01/29/20 intravenous solution cholecalciferol (vitamin D3) 125 5,000 unit PO DAILY #90 cap 02/21/20 mcg (5,000 unit) capsule esomeprazole magnesium 40 mg 40 mg PO DAILY #90 cap 03/04/20 capsule,delayed release metoprolol succinate 25 mg 25 mg PO DAILY #90 tab 03/05/20 tablet,extended release 24 hr rosuvastatin 5 mg tablet 5 mg PO DAILY #90 tab 06/02/20 acetaminophen 300 mg-codeine 60 mg 1 tab PO TID PRN #90 tab 08/05/20 tablet tramadol 50 mg tablet 50 mg PO Q6H PRN #120 tab 08/05/20 levofloxacin 750 mg PO DAILY #5 tab 10/17/20 Allergies Allergy/AdvReac Type Severity Reaction Status Date / Time Influenza Virus Vaccines Allergy Severe ? allergic Verified 10/17/20 11:14 reaction to flu vaccine pravastatin AdvReac Intermediate Muscle and Verified 10/17/20 11:14 joint pain atorvastatin AdvReac myalgias Verified 10/17/20 11:14 General Stated Complaint: GenMedical BRENT: 3 Review of Systems All systems reviewed & are unremarkable except as noted in HPI and below Constitutional Constitutional: Denies chills, Denies fever(s) and Denies weakness Cardiovascular Cardiovascular: Denies chest pain and Denies dyspnea Respiratory Respiratory: Denies cough and Denies dyspnea Gastrointestinal Gastrointestinal: Denies abdominal pain, Denies nausea and Denies vomiting Genitourinary Genitourinary: Denies dysuria Musculoskeletal Musculoskeletal: Denies joint swelling Neurologic Neurologic: Denies weakness Psychiatric Psychiatric: Denies depression [facility] Medical History (Updated 10/17/20 @ 12:39 by Shahriar Vyas MD) Actinic keratosis Actinic keratosis Asthma Asthma (10/04/13) BPH (benign prostatic hyperplasia) Cardiomyopathy Echocardiogram April 2018 Lvef 40-45%, (was 45-50% in 2016), mild LVH, severe hypokinesis of inferior septal and inferior edwards, mild to moderate mitral regurgitation, LA enlargement, normal RV size and function, possible very small PFO, pulm. systolic pressure 15-25 mm. Pharmacologic stress MPI Dec 2018 normal perfusion but depressed LVEF 34% Carpal tunnel syndrome Carpal tunnel syndrome (10/16/12) Chronic pain syndrome Chronic pain syndrome (04/01/13) s/p neck surgery s/p back surgery CONTRACT 04/13/15 07/26/17-CONTROLLED SUBSTANCE AGREEMENT~RENEWED Constipation Depression Depressive disorder (04/01/13) Exertional angina CCS class II, stable, improved on higher dose metoprolol Gastroesophageal reflux disease with esophagitis (04/01/13) GERD (gastroesophageal reflux disease) Hearing loss Hearing loss (10/04/13) This is chronic and nothing to do about it Hypercholesterolemia Hypercholesterolemia (04/01/13) statin intolerance Hyperplasia of prostate Hypertension Hypertension (07/09/14) He does not need a refill on his pain meds today Impaired glucose tolerance Iron deficiency anemia secondary to GI bleed of unknown source April 2018 (negative EGD, capsule endoscopy, colonoscopy) we will check new iron level and may need re-infusion with iron.. Still undetermined source for GI bleed. Numbness and tingling in right hand (04/18/16) suspected carpal tunnel Paroxysmal atrial flutter Zio patch Jul 2018 2% atrial flutter w/ longest episode at 6 hr. Partial small bowel obstruction s/p resection 2017 Statin intolerance Tubular adenoma of colon Tubular adenoma of colon 12/08/14; DR. DUONG Surgical History Amputated left leg (07/09/14) BACK/NECK SURGERY Colonoscopy - MAC 12/08/14 EGD - MAC (05/14/18) left below knee amputation at age 16 Social History Smoking/Tobacco Use Status: Former Tobacco Use Quit Date: 11/13/80 Smoking risk assessment performed?: Yes Alcohol Intake: current Alcohol Intake frequency: a few times a month Drug use: Never Substance use type: does not use Household members: significant other Do you feel safe at home: Yes Do you feel safe in your relationship?: Yes Exam Const General: no acute distress Orientation: alert HENMT Head: normal to inspection Ears: external ears normal General nose exam: external nose normal Mouth: moist mucous membranes Eyes General: appearance normal, both eyes and all related structures Neck Neck: normal visual inspection Resp Effort & Inspection: normal respiratory effort and able to speak in complete sentences Cardio Rate: regular rate Skin General skin exam: no rashes or lesions noted Neuro General: patient alert and patient oriented x3 Extrem General: full ROM and capillary refill normal Psych Mental Status: mental status grossly normal Course Vital Signs Vital signs: Vital Signs Temperature 36.4 C L 10/17/20 11:08 Pulse 96 H 10/17/20 11:08 Respiratory Rate 22 10/17/20 11:08 Blood Pressure 131/66 10/17/20 11:08 Pulse Oximetry 98 10/17/20 11:08 Temperature 36.4 C L 10/17/20 11:08 Temperature Source Skin 10/17/20 11:08 Pulse 96 H 10/17/20 11:08 Respiratory Rate 22 10/17/20 11:08 Respiratory Effort Non-Labored 10/17/20 11:19 Blood Pressure 131/66 10/17/20 11:08 Blood Pressure Position Sitting 10/17/20 11:08 Pulse Oximetry 98 10/17/20 11:08 Oxygen Delivery Method Room Air 10/17/20 11:08 Oxygen Flow Rate 0 10/17/20 11:08 Pain Level 6 10/17/20 11:08
[2020-10-17 11:33] LABS: Bilirubin Moderate (Negative); Blood Negative (Negative); Clarity Clear (Clear); Glucose Negative (Negative); Ketones 15 mg/dL (Negative); Leukocyte Esterase Negative (Negative); Nitrite Negative (Negative); Specific Gravity 1.025 (1.005-1.025); pH 5.5 (5-8)
[2020-10-17 11:39] LABS: Abs Immature Grans 0.04 10^3/uL (0.0-0.06); Absolute Basophil Count 0.07 10^3/uL (0.0-0.2); Absolute Eosinophil Count 0.04 10^3/uL (0.0-0.7); Absolute Lymphocyte Count 1.45 10^3/uL (1.2-3.4); Absolute Monocyte Count 0.65 10^3/uL (0.1-0.8); Basophils % 0.6; Eosinophils % 0.3; HCT 42.1 % (40.0-50.0); HGB 13.9 g/dL (13.5-17.5); Immature Grans % 0.3; Lymphocytes % 12.1; MCH 29.3 pg (27.0-33.0); MCV 88.8 fL (80-95); MPV 11.6 fL (8.0-11.0); Monocytes % 5.4; Neutrophils % 81.3; Nucleated RBC 0 %; Platelet Count 256 10^3/uL (130-400); RBC 4.74 10^6/uL (4.36-5.78); RDW-SD 45.1 fL; WBC 11.95 10^3/uL (4.4-10.8)
[2020-10-17 11:45] LABS: Absolute Neutrophil Count 9.72 10^3/uL (1.2-6.7)
[2020-10-17 11:50] LABS: Bacteria Moderate HPF (Negative); Casts 5-10 Hyaline LPF (Negative); Crystals Negative HPF (Negative); Epithelial Cells Few HPF (Negative); Mucus Moderate (Negative); RBC Negative HPF (0-2)
[2020-10-17 11:51] LABS: C & S Indicated? Yes
--- NOTE | 2020-10-17 11:52 | DI.CT_ITS ---
EXAM: CT RENAL COLIC WO INDICATION: left flank pain and hip pain. TECHNIQUE: CT examination was performed without contrast administration. FINDINGS: There are probable left parapelvic renal cysts. Images obtained through the lung bases are unremarka ble. Prior lower lumbar laminectomy and fusion noted with Davison rods in place from L3 through L5. Gomez rdware appears intact. Cardiac pacer wires noted in position. Prior small bowel anastomosis noted in the right lower quadrant. Visualized portions of the liver and spleen appear intact except for nonspecific splenic calcificatio ns.. Visualized portions of the pancreas are unremarkable. There are apparent gallstones without evidence of biliary dilatation. No gallbladder wall thickening or pericholecystic fluid collection. Abdominal aorta is of normal diameter. There is an umbilical hernia with a widely patent orifice which contains loop of unremarkable appeari ng small bowel. No significant abdominal or pelvic adenopathy. Adrenals appear normal bilaterally. The kidneys are normal in size and shape. There is no evidence of a renal mass, hydronephrosis, or n ephrolithiasis. No ureteral dilatation or calcification identified. Urinary bladder is essentially empty and cannot be adequately evaluated. Questionable wall thickening of urinary bladder. Appendix appears normal. There is no evidence of diverticulitis or bowel obstruction. IMPRESSION: No evidence of acute intra-abdominal process. Cholelithiasis noted. RADIATION DOSE DELIVERED: 1,001mGy.cm Total DLP
[2020-10-17 11:54] LABS: INR 1.1 (0.9-1.1); PTT Activated 29.2 sec (21.0-27.5); Prothrombin Time 11.5 sec (9.3-11.0)
[2020-10-17 12:00] LABS: ALT 28 U/L (16-63); AST 40 U/L (15-37); Alkaline Phosphatase 86 U/L (46-116); Anion Gap 12.9 mmol/L (3-11); BUN 17 mg/dL (7-18); Bilirubin, Total 1.4 mg/dL (0.2-1.0); CO2 23.1 mmol/L (21.0-32.0); CREATININE 1.55 mg/dL (0.70-1.30); Calcium 9.5 mg/dL (8.5-10.1); Chloride 99 mmol/L (98-107); Glucose 141 mg/dL (74-106); Potassium 3.4 mmol/L (3.5-5.1); Sodium 135 mmol/L (136-145); Total Protein 7.9 g/dL (6.4-8.2)
--- NOTE | 2020-10-17 12:17 | DI.VRAD_ITS ---
PROCEDURE INFORMATION: Exam: CT Abdomen And Pelvis Without Contrast Exam date and time: 10/17/2020 11:23 AM Age: 70 years old Clinical indication: Abdominal pain; Patient HX: Left flank pain TECHNIQUE: Imaging protocol: Computed tomography of the abdomen and pelvis without contrast. Radiation optimization: All CT scans at this facility use at least one of these dose optimization techniques: automated exposure control; mA and/or kV adjustment per patient size (includes targeted exams where dose is matched to clinical indication); or iterative reconstruction. COMPARISON: CT Abdomen^ROUTINE ABDOMEN PELVIS WITH CONTRAST (Adult) 07/18/2018 9:29 PM FINDINGS: Tubes, catheters and devices: Transvenous pacemaker leads in the heart Liver: Normal. No mass. Gallbladder and bile ducts: Multiple gallstones in the gallbladder. Pancreas: Normal. No ductal dilation. Spleen: Normal. No splenomegaly. Adrenal glands: Normal. No mass. Kidneys and ureters: Simple pararenal cysts in the left kidney There is no evidence of renal or ureteral calcifications.. Stomach and bowel: Diverticulosis of the rectosigmoid. No diverticulitis.. Appendix: No evidence of appendicitis. Intraperitoneal space: Unremarkable. No free air. No significant fluid collection. Vasculature: Unremarkable. No abdominal aortic aneurysm. Lymph nodes: Unremarkable. No enlarged lymph nodes. Urinary bladder: Anterior bladder wall measures 14 mm. This is nonspecific and may represent inflammation or infection. Neoplastic process and neurogenic bladder are included in the differential. Reproductive: Unremarkable as visualized. Bones/joints: Internal fixation device L3 through L5 Soft tissues: Umbilical hernia contains bowel. Series 2, image 89. No bowel obstruction.. IMPRESSION: 1. Multiple gallstones in the gallbladder. 2. There is no evidence of renal or ureteral calcifications.. 3. Diverticulosis of the rectosigmoid. No diverticulitis.. 4. Anterior bladder wall measures 14 mm. This is nonspecific and may represent inflammation or infection. Neoplastic process and neurogenic bladder are included in the differential. 5. Umbilical hernia contains bowel. Series 2, image 89. No bowel obstruction.. Dictated and Authenticated by: Noelle James MD. Ordering:AFTAB Bess MD
[2020-10-17] MEDS: Normal Saline 1,000 ML 1000 ML IV (12:24)
[2020-10-17] MEDS: Normal Saline Flush 10 ML SYR IVP (12:34)
[2020-10-17] MEDS: Ketorolac 15 MG/ML VIAL IVP (12:34)
[2020-10-17] MEDS: levoFLOXacin 500 MG, levoFLOXacin 250 MG 750 MG PO (12:35)
--- NOTE | 2020-10-17 12:39 | NUR.NOTE ---
Referral faxed to [facility].Nursing Note:
== END 2020-10-17 13:07 | disposition home or self-care (01) ==
PROVIDERS: Emergency Provider Emergency Medicine; PCP Family Medicine
DX: E86.0 Dehydration (principal); N39.0 Urinary tract infection, site not specified; M25.552 Pain in left hip; W19.XXXA Unspecified fall, initial encounter; Z79.01 Long term (current) use of anticoagulants; I10 Essential (primary) hypertension
CPT/HCPCS: 36415; 80053; 96361; 96374; 99284; 74176; 81003; 81015; 85025; 85610; 85730; 87086; 99285; J1885

== ENCOUNTER → 2020-11-18 10:43 | Outpatient (BNVA) | payer MEDICARE, MEDICAID, SELFPAY | PROVIDERS: PCP Family Medicine; Referring Provider Family Medicine; Visit Provider Nurse Practitioner Gerontology | DX: N40.0 Benign prostatic hyperplasia without lower urinary tract symptoms (principal); R31.0 Gross hematuria; I10 Essential (primary) hypertension; Z87.891 Personal history of nicotine dependence | CPT/HCPCS: 99204; 99215 ==

== ENCOUNTER 2020-11-18 18:41 | Outpatient (REF) | payer MEDICARE, MEDICAID, SELFPAY ==
[2020-11-18 22:00] LABS: PSA, Screening 0.3 ng/mL (0.0-6.5)
== END 2020-11-18 19:01 ==
LOC: LBN 18:41
PROVIDERS: PCP Family Medicine; Visit Provider Nurse Practitioner Gerontology
DX: N40.0 Benign prostatic hyperplasia without lower urinary tract symptoms (principal); Z12.5 Encounter for screening for malignant neoplasm of prostate
CPT/HCPCS: 84153

== ENCOUNTER → 2020-11-23 10:40 | Outpatient (BNVA) | payer MEDICARE, MEDICAID, SELFPAY | PROVIDERS: PCP Family Medicine; Referring Provider Family Medicine; Visit Provider Urology | DX: R31.0 Gross hematuria (principal); Z79.01 Long term (current) use of anticoagulants | CPT/HCPCS: 52000; 99213 ==

== ENCOUNTER → 2021-03-09 12:55 | Outpatient (BNVA) | payer MEDICARE, MEDICAID, SELFPAY | PROVIDERS: PCP Family Medicine; Referring Provider Family Medicine; Visit Provider Internal Medicine Cardiovascular Disease | DX: I25.10 Atherosclerotic heart disease of native coronary artery without angina pectoris (principal); I48.92 Unspecified atrial flutter; I10 Essential (primary) hypertension; Z79.01 Long term (current) use of anticoagulants; Z95.0 Presence of cardiac pacemaker | CPT/HCPCS: 99214; 99213 ==

== ENCOUNTER 2021-04-14 12:58 | Outpatient (CLI) | payer MEDICARE, MEDICAID, SELFPAY ==
--- NOTE | 2021-04-14 13:15 | RT.EKG_ITS ---
APPROVED REPORT Exam: Resting ECG Reason for Exam: device Patient Location: O HR:108 bpm ECG Measurements Heart Rate 108 AXIS OK 156 P [id number] QRSd 137 QRS -23 QT 379 T 214 QTc 508 Conclusion A-V dual-paced complexes w/ some inhibition...other complexes also detected No further analysis attempted due to paced rhythm
== END 2021-04-14 12:59 | disposition home or self-care (01) ==
PROVIDERS: PCP Family Medicine; Referring Provider Family Medicine; Visit Provider Internal Medicine Cardiovascular Disease
DX: I20.0 Unstable angina (principal)
CPT/HCPCS: 93010

== ENCOUNTER → 2021-04-14 12:58 | Outpatient (BNVA) | payer MEDICARE, MEDICAID, SELFPAY | PROVIDERS: PCP Family Medicine; Referring Provider Family Medicine; Visit Provider Internal Medicine Cardiovascular Disease | DX: I42.9 Cardiomyopathy, unspecified (principal); Z45.018 Encounter for adjustment and management of other part of cardiac pacemaker | CPT/HCPCS: 93005; 93280 ==

== ENCOUNTER 2021-04-26 16:16 | Outpatient (REF) | payer MEDICARE, MEDICAID, SELFPAY ==
[2021-04-26 18:41] LABS: ALT 22 U/L (16-63); AST 20 U/L (15-37); Albumin 3.9 g/dL (3.4-5.0); Alkaline Phosphatase 75 U/L (46-116); Anion Gap 7.8 mmol/L (3-11); BUN 17 mg/dL (7-18); Bilirubin, Total 0.5 mg/dL (0.2-1.0); CO2 27.2 mmol/L (21.0-32.0); Calculated LDL 80 mg/dL (<100); Chloride 106 mmol/L (98-107); Cholesterol 163 mg/dL (<200); Glucose 117 mg/dL (74-106); HDL Cholesterol 62 mg/dL (40-60); Potassium 4.5 mmol/L (3.5-5.1); Sodium 141 mmol/L (136-145); Triglyceride 107 mg/dL (<150)
== END 2021-04-26 16:17 | disposition home or self-care (01) ==
LOC: LBN 16:16
PROVIDERS: PCP Family Medicine; Visit Provider Family Medicine
DX: I25.10 Atherosclerotic heart disease of native coronary artery without angina pectoris (principal); I10 Essential (primary) hypertension
CPT/HCPCS: 80053; 80061

== ENCOUNTER → 2021-07-14 12:52 | Outpatient (BNVA) | payer MEDICARE, MEDICAID, SELFPAY | PROVIDERS: PCP Family Medicine; Visit Provider Internal Medicine Cardiovascular Disease | DX: I20.0 Unstable angina (principal); R00.0 Tachycardia, unspecified; R53.83 Other fatigue; Z45.018 Encounter for adjustment and management of other part of cardiac pacemaker | CPT/HCPCS: 93280; 99213 ==

== ENCOUNTER 2021-07-22 18:18 | Outpatient (REF) | payer MEDICARE, MEDICAID, SELFPAY ==
[2021-07-22 19:54] LABS: HCT 37.6 % (40.0-50.0); HGB 12.3 g/dL (13.5-17.5); MCH 28.1 pg (27.0-33.0); MCHC 32.7 % (32.0-36.0); MPV 12.1 fL (8.0-11.0); Platelet Count 220 10^3/uL (130-400); RBC 4.37 10^6/uL (4.36-5.78); RDW 15.8 % (11.8-14.1); RDW-SD 49.6 fL; WBC 6.08 10^3/uL (4.4-10.8)
[2021-07-22 20:41] LABS: Magnesium 1.8 mg/dL (1.8-2.4)
[2021-07-22 20:52] LABS: ALT 28 U/L (16-63); AST 28 U/L (15-37); Albumin 3.6 g/dL (3.4-5.0); Alkaline Phosphatase 80 U/L (46-116); Anion Gap 9.9 mmol/L (3-11); BUN 19 mg/dL (7-18); Bilirubin, Total 0.4 mg/dL (0.2-1.0); CO2 25.1 mmol/L (21.0-32.0); Calcium 8.7 mg/dL (8.5-10.1); Chloride 107 mmol/L (98-107); Glucose 88 mg/dL (74-106); Potassium 4.1 mmol/L (3.5-5.1); Sodium 142 mmol/L (136-145); TSH (W/Ref FT4) 2.13 uIU/mL (0.36-3.74); Total Protein 6.8 g/dL (6.4-8.2)
== END 2021-07-22 18:19 | disposition home or self-care (01) ==
LOC: LBN 18:18
PROVIDERS: PCP Family Medicine; Visit Provider Family Medicine
DX: R00.0 Tachycardia, unspecified (principal)
CPT/HCPCS: 80053; 85027; 83735; 84443

== ENCOUNTER → 2021-09-06 12:58 | Outpatient (BNVA) | payer MEDICARE, MEDICAID, SELFPAY | PROVIDERS: PCP Family Medicine; Referring Provider Family Medicine; Visit Provider Internal Medicine Cardiovascular Disease | DX: I25.10 Atherosclerotic heart disease of native coronary artery without angina pectoris (principal); I48.92 Unspecified atrial flutter; I25.5 Ischemic cardiomyopathy; Z95.0 Presence of cardiac pacemaker | CPT/HCPCS: 99214; 99213 ==

== ENCOUNTER → 2022-01-12 12:56 | Outpatient (BNVA) | payer MEDICARE, MEDICAID, SELFPAY | PROVIDERS: PCP Family Medicine; Referring Provider Family Medicine; Visit Provider Internal Medicine Cardiovascular Disease | DX: Z95.0 Presence of cardiac pacemaker (principal); I20.0 Unstable angina | CPT/HCPCS: 93280 ==

== ENCOUNTER → 2022-03-11 13:53 | Outpatient (BNVA) | payer MEDICARE, MEDICAID, SELFPAY | PROVIDERS: PCP Family Medicine; Visit Provider Internal Medicine Cardiovascular Disease | DX: I25.10 Atherosclerotic heart disease of native coronary artery without angina pectoris (principal); I25.5 Ischemic cardiomyopathy; I48.92 Unspecified atrial flutter; Z95.0 Presence of cardiac pacemaker | CPT/HCPCS: 99214; 99213 ==

== ENCOUNTER → 2022-07-20 12:52 | Outpatient (BNVA) | payer MEDICARE, MEDICAID, SELFPAY | PROVIDERS: PCP Family Medicine; Visit Provider Internal Medicine Cardiovascular Disease | DX: Z95.0 Presence of cardiac pacemaker (principal); I20.0 Unstable angina | CPT/HCPCS: 93280 ==

== ENCOUNTER → 2022-09-06 13:35 | Outpatient (BNVA) | payer MEDICARE, MEDICAID, SELFPAY | PROVIDERS: PCP Family Medicine; Visit Provider Internal Medicine Cardiovascular Disease | DX: I25.10 Atherosclerotic heart disease of native coronary artery without angina pectoris (principal); I25.5 Ischemic cardiomyopathy; I10 Essential (primary) hypertension; Z95.0 Presence of cardiac pacemaker | CPT/HCPCS: 99214 ==

== ENCOUNTER 2022-11-03 12:27 | Emergency (ER) | payer MEDICARE, MEDICAID, SELFPAY ==
[2022-11-03 12:26] VITALS: BP 130/67; PULSE 63; RESP 16; TEMP 36.6; O2SAT 95
--- NOTE | 2022-11-03 12:37 | ED.GENADUL_ITS ---
Discharge Plan Disposition Patient Disposition: Home Condition: Improving Discharge Details Clinical Impression: Cellulitis of right lower extremity Primary Care Provider: Monica Hooker ED Provider: Bharat Cano Home Meds and New Rx's Prescriptions: New cephalexin 500 mg capsule 500 mg PO Q6H 10 Days Qty: 40 0RF oxycodone-acetaminophen [Percocet] 5-325 mg tablet 1 tab PO Q8H PRNQty: 8 0RF Continued albuterol sulfate [Proventil HFA] 90 mcg/actuation HFA aerosol inhaler 2 puff Inhalation QID PRN (Reason: shortness of breath or wheezing) Qty: 1 4RF Rx Instructions: SWITCH TO ALTERNATIVE IF COVERED BY INSURANCE,PRO AIR,XOPENEX, ETC amlodipine 10 mg tablet 10 mg PO DAILY Qty: 90 3RF fluticasone propionate 50 mcg/actuation spray,suspension 2 spray NS DAILY Qty: 15.8 8RF tramadol 50 mg tablet 50 mg PO DAILY PRN (Reason: pain) Qty: 90 3RF lorazepam 1 mg tablet 1 mg PO QHS PRN (Reason: sleep) Qty: 90 1RF metoprolol succinate 25 mg tablet extended release 24 hr 25 mg PO DAILY Qty: 90 6RF nitroglycerin 0.4 mg tablet, sublingual 0.4 mg SL Q5-15M PRN (Reason: angina) Qty: 25 10RF Rx Instructions: sildenafil 100 mg tablet 100 mg PO DAILY PRN (Reason: sexual activity) Qty: 7 4RF Rx Instructions: administer 30 minutes to 4 hours before activity gabapentin 100 mg capsule 100 mg PO TID Qty: 90 4RF naloxone [Narcan] 4 mg/actuation spray,non-aerosol 1 spray intranasal Q2-3M PRN (Reason: opioid overdose) Qty: 2 0RF Rx Instructions: spray 1 dose into ONE nostril; alternate nostrils w each dose until help arrives. Use if you are somnolent after taking tramadol and lorazepam cholecalciferol (vitamin D3) 125 mcg (5,000 unit) capsule 5,000 unit PO DAILY Qty: 90 3RF esomeprazole magnesium 40 mg capsule,delayed release(DR/EC) 40 mg PO DAILY Qty: 90 3RF rosuvastatin 5 mg tablet 5 mg PO DAILY Qty: 90 3RF Eliquis 5 mg tablet 5 mg PO BID Qty: 180 11RF lisinopril 20 mg Tablet 20 mg PO DAILY aspirin 81 mg Tablet 81 mg PO DAILY Discharge Instructions Instructions: Cellulitis (ED) Additional Instructions: Keflex as directed. Rest, elevate, cool and/or warm compresses every 2 hours for 20 minutes. As we discussed your uric acid level is normal but this does not exclude the diagnosis of gout. Plenty of fluids as this could potentially help with any uric acid crystals. I am providing you 8 tablets of Percocet for your breakthrough pain, take sparingly, this medication can cause drowsiness and can compound the drowsiness with tramadol. It may also cause constipation, you may want to consider [id number] stool softeners while on this medication. Please watch for new or worsening symptoms and return to the ER for any concerns. Lastly, please contact your primary care provider later today or t omorrow to discuss your ER visit need for outpatient reevaluation as we discussed if symptoms or not improving then needle aspiration of your ankle may eventually be indicated. Discharge Data Discharge Date/Time-TO BE ENTERED AT DEPARTURE: 11/03/22 15:57 Medical Decision Making This is a 72-year-old gentleman, past medical history of cardiomyopathy, left below the knee amputation, chronic pain syndrome, GERD, hypertension, proximal atrial fibrillation, on apixaban, CAD, asthma, depression, no history of gout, presents to the ER for right lower extremity redness and pain. Patient states that this began as a small dot to the inside of his right ankle and over the past 3 days has now expanded. Denies fever. Denies calf pain. Denies chest pain or shortness of breath. Denies any obvious injury. Clinically this appears to be cellulitis. Extremely low suspicion for toxicity, DVT, gout, septic joint. This appears to be soft tissue in nature and extends well outside of the joint space range. Patient does report significant discomfort. Will obtain IV access, laboratory values including a uric acid, and an x-ray. We will provide 4 mg IV morphine Pt does have a pain contract for his chronic pain. He is prescribed tramadol. He states he is been taking his tramadol without relief of his new right leg pain. Given 4 of IV morphine moderate improvement of the symptoms. Laboratory values reveal mild leukocytosis of 12.37. Absolute neutrophils of 10.58. Electrolytes unremarkable, creatinine 1.1 with a GFR of 70.44. Uric acid within normal range of 7.2. X-ray reveals soft tissue swelling, no acute bony abnormality. Discussed work-up with patient and family. Diagnosis most likely is that of cellulitis. We did discuss that definitive diagnosis of gout would be with joint aspiration. At this time no evidence of septic joint. I see no clear indication for joint aspiration at this time especially in the setting of needing to go through cellulitis and potentially infecting the joint. I did explain to the patient and family that if symptoms not improving with conservative measures that this may eventually become indicated. Plan to provide a single dose of antibiotics now. I will also provide 8 tablets of Percocet for his acute pain in his right leg as the tramadol is not helping. We did discuss that he is on a pain contract and that any additional pain medication would need to be provided through his PCP. Standard discharge and return precautions were provided. Patient understands, is agreeable to this plan, and has no additional questions or concerns upon discharge. This documentation was generated using [employer] system, please disregard any oddities of phrase or misspellings. Medical Records Medical records reviewed: Yes I reviewed the patient's medical records. Imaging Data Radiologic Study: Attestation: I personally reviewed and interpreted this imaging study as follows: Imaging: X-Ray Radiologist's impression: Exam(s) XR ANKLE RT COMPLETE EXAM: XR ANKLE RT COMPLETE CLINICAL HISTORY: pain. TECHNIQUE: 2D digital imaging was performed. Three views. COMPARISON: CR LEFT TIB/FIB from 11/16/2009 FINDINGS: BONES: No acute fracture is present. No bony destructive lesion is seen. Smoothly marginated bony densities are noted beneath the tip of the medial malleolus. JOINTS: The ankle mortise is normally aligned. SOFT TISSUE: Marked swelling. IMPRESSION: Soft tissue swelling around the malleoli. Lab Data Lab results reviewed: Yes I reviewed the patient's lab results. Labs: Laboratory Tests Range/Units 11/03/22 11/03/22 11/03/22 12:57 12:57 12:57 WBC (4.4-10.8) 10^3/uL 12.37 H RBC (4.36-5.78) 10^6/uL 4.79 Hgb (13.5-17.5) g/dL 13.8 Hct (40.0-50.0) % 42.2 MCV (80-95) fL 88 MCH (27.0-33.0) pg 28.8 MCHC (32.0-36.0) % 32.7 RDW (11.8-14.1) % 13.1 Plt Count (130-400) 10^3/uL 236 MPV (8.0-11.0) fL 11.1 H Immature Gran % 0.4 Neutrophils % 84.7 Lymphocytes % 5.7 Monocytes % 8.7 Eosinophils % 0.1 Basophils % 0.4 Nucleated RBC % (0.0-0.3) % 0.0 Absolute Neutrophils (1.2-6.7) 10^3/uL 10.48 H Absolute Lymphocytes (1.2-3.4) 10^3/uL 0.71 L Absolute Monocytes (0.1-0.8) 10^3/uL 1.08 H Absolute Eosinophils (0.0-0.7) 10^3/uL 0.01 Absolute Basophils (0.0-0.2) 10^3/uL 0.05 Sodium (136-145) mmol/L 136 Potassium (3.5-5.1) mmol/L 4.2 Chloride (98-107) mmol/L 100 Carbon Dioxide (21.0-32.0) mmol/L 26.1 Anion Gap (3-11) mmol/L 9.9 BUN (7-18) mg/dL 14 Creatinine (0.70-1.30) mg/dL 1.1 Est GFR (CKD-EPI 2020) (mL/min/1.73m2) 70.44 Glucose (74-106) mg/dL 136 H Hemoglobin A1c (<5.7) % Uric Acid (3.5-7.2) mg/dL 7.2 Calcium (8.5-10.1) mg/dL 9.3 Total Bilirubin (0.2-1.0) mg/dL 0.9 AST (15-37) U/L 24 ALT (16-63) U/L 26 Alkaline Phosphatase (46-116) U/L 73 Total Protein (6.4-8.2) g/dL 8.0 Albumin (3.4-5.0) g/dL 3.8 Triglycerides (<150) mg/dL 66 Total Cholesterol (<200) mg/dL 155 LDL Cholesterol, Calc (<100) mg/dL 64 HDL Cholesterol (40-60) mg/dL 78 Vitamin B12 (193-986) pg/mL 293 Range/Units 11/03/22 12:57 WBC (4.4-10.8) 10^3/uL RBC (4.36-5.78) 10^6/uL Hgb (13.5-17.5) g/dL Hct (40.0-50.0) % MCV (80-95) fL MCH (27.0-33.0) pg MCHC (32.0-36.0) % RDW (11.8-14.1) % Plt Count (130-400) 10^3/uL MPV (8.0-11.0) fL Immature Gran % Neutrophils % Lymphocytes % Monocytes % Eosinophils % Basophils % Nucleated RBC % (0.0-0.3) % Absolute Neutrophils (1.2-6.7) 10^3/uL Absolute Lymphocytes (1.2-3.4) 10^3/uL Absolute Monocytes (0.1-0.8) 10^3/uL Absolute Eosinophils (0.0-0.7) 10^3/uL Absolute Basophils (0.0-0.2) 10^3/uL Sodium (136-145) mmol/L Potassium (3.5-5.1) mmol/L Chloride (98-107) mmol/L Carbon Dioxide (21.0-32.0) mmol/L Anion Gap (3-11) mmol/L BUN (7-18) mg/dL Creatinine (0.70-1.30) mg/dL Est GFR (CKD-EPI 2020) (mL/min/1.73m2) Glucose (74-106) mg/dL Hemoglobin A1c (<5.7) % 6.0 H Uric Acid (3.5-7.2) mg/dL Calcium (8.5-10.1) mg/dL Total Bilirubin (0.2-1.0) mg/dL AST (15-37) U/L ALT (16-63) U/L Alkaline Phosphatase (46-116) U/L Total Protein (6.4-8.2) g/dL Albumin (3.4-5.0) g/dL Triglycerides (<150) mg/dL Total Cholesterol (<200) mg/dL LDL Cholesterol, Calc (<100) mg/dL HDL Cholesterol (40-60) mg/dL Vitamin B12 (193-986) pg/mL HPI General Mode of arrival: EMS . Date/Time Provider Initiated Documentation: 11/03/22 12:31 . Limitations to Documentation: no limitations . Information obtained by: patient and family . History of Present Illness 72 year old M presents to the emergency department with the chief complaint of R ankle pain, described as severe, with intensity rated at 8. Quality is described as aching, and is localized to the right and lower extremity. Patient reports no radiation. Patient started experiencing this day(s) (3) and it has been other (worsening). No relieving factors improve symptom(s), Movement worsens symptoms . Patient notes no other symptoms.. Patient did receive the following treatments prior to arrival, none Related Data Home Medications Medication Instructions Recorded Confirmed aspirin 81 mg tablet 81 mg PO DAILY 10/17/20 11/03/22 nitroglycerin 0.4 mg sublingual 0.4 mg sublingual Q5-15M PRN 10/22/20 11/03/22 tablet angina #25 tabs sildenafil 100 mg tablet 100 mg PO DAILY PRN sexual 10/14/21 09/06/22 activity #7 tabs naloxone 4 mg/actuation nasal 1 spray intranasal Q2-3M PRN 11/16/21 09/06/22 spray (Narcan) opioid overdose #2 ea albuterol sulfate 90 mcg/actuation 2 puff inhalation QID PRN 12/07/21 09/06/22 aerosol inhaler (Proventil HFA) shortness of breath or wheezing ##1 cholecalciferol (vitamin D3) 125 5,000 unit PO DAILY #90 caps 03/07/22 11/03/22 mcg (5,000 unit) capsule esomeprazole magnesium 40 mg 40 mg PO DAILY #90 caps 03/07/22 11/03/22 capsule,delayed release gabapentin 100 mg capsule 100 mg PO TID #90 caps 05/23/22 09/06/22 rosuvastatin 5 mg tablet 5 mg PO DAILY #90 tabs 09/08/22 11/03/22 apixaban 5 mg tablet (Eliquis) 5 mg PO BID #180 tabs 09/28/22 11/03/22 amlodipine 10 mg tablet 10 mg PO DAILY #90 tabs 10/11/22 11/03/22 fluticasone propionate 50 2 spray NS DAILY #15.8 mL 10/11/22 11/03/22 mcg/actuation nasal spray,suspension lorazepam 1 mg tablet 1 mg PO QHS PRN sleep #90 tabs 10/11/22 11/03/22 metoprolol succinate 25 mg 25 mg PO DAILY #90 tabs 10/11/22 11/03/22 tablet,extended release 24 hr tramadol 50 mg tablet 50 mg PO DAILY PRN pain #90 tabs 10/11/22 11/03/22 cephalexin 500 mg capsule 500 mg PO Q6H 10 days #40 caps 11/03/22 lisinopril 20 mg tablet 20 mg PO DAILY 11/03/22 11/03/22 oxycodone-acetaminophen 5 mg-325 1 tab PO Q8H PRN #8 tabs 11/03/22 mg tablet (Percocet) Previous Rx's Medication Instructions Recorded nitroglycerin 0.4 mg sublingual 0.4 mg sublingual Q5-15M PRN 10/22/20 tablet angina #25 tabs sildenafil 100 mg tablet 100 mg PO DAILY PRN sexual 10/14/21 activity #7 tabs naloxone 4 mg/actuation nasal 1 spray intranasal Q2-3M PRN 11/16/21 spray (Narcan) opioid overdose #2 ea albuterol sulfate 90 mcg/actuation 2 puff inhalation QID PRN 12/07/21 aerosol inhaler (Proventil HFA) shortness of breath or wheezing ##1 cholecalciferol (vitamin D3) 125 5,000 unit PO DAILY #90 caps 03/07/22 mcg (5,000 unit) capsule esomeprazole magnesium 40 mg 40 mg PO DAILY #90 caps 03/07/22 capsule,delayed release gabapentin 100 mg capsule 100 mg PO TID #90 caps 05/23/22 rosuvastatin 5 mg tablet 5 mg PO DAILY #90 tabs 09/08/22 apixaban 5 mg tablet (Eliquis) 5 mg PO BID #180 tabs 09/28/22 amlodipine 10 mg tablet 10 mg PO DAILY #90 tabs 10/11/22 fluticasone propionate 50 2 spray NS DAILY #15.8 mL 10/11/22 mcg/actuation nasal spray,suspension lorazepam 1 mg tablet 1 mg PO QHS PRN sleep #90 tabs 10/11/22 metoprolol succinate 25 mg 25 mg PO DAILY #90 tabs 10/11/22 tablet,extended release 24 hr tramadol 50 mg tablet 50 mg PO DAILY PRN pain #90 tabs 10/11/22 cephalexin 500 mg capsule 500 mg PO Q6H 10 days #40 caps 11/03/22 oxycodone-acetaminophen 5 mg-325 1 tab PO Q8H PRN #8 tabs 11/03/22 mg tablet (Percocet) Allergies Allergy/AdvReac Type Severity Reaction Status Date / Time Influenza Virus Vaccines Allergy Severe ? allergic Verified 11/03/22 12:31 reaction to flu vaccine pravastatin AdvReac Intermediate Muscle and Verified 11/03/22 12:31 joint pain atorvastatin AdvReac myalgias Verified 11/03/22 12:31 General Stated Complaint: Cellulitis BRENT: 3 Review of Systems Constitutional Constitutional: Denies fever(s) and Denies weakness Cardiovascular Cardiovascular: Denies chest pain and Denies dyspnea Respiratory Respiratory: Denies dyspnea Musculoskeletal Musculoskeletal: Reports arthralgias, Reports joint swelling, Denies numbness, Reports stiffness and Denies tingling Integumentary/Breasts Skin/Breast: Reports erythema Neurologic Neurologic: Denies numbness, Denies tingling and Denies weakness Hematologic/Lymphatic Hematologic/Lymphatic: Reports easy bleeding and Reports easy bruising PFSH All Active Problems (Updated 11/03/22 @ 15:15 by RAFAL Cardenas) Cellulitis of right lower extremity (Acute) Actinic keratosis (Acute) Erectile disorder due to medical condition in male (Acute) Tachycardia (Acute) Sensorineural hearing loss of both ears (Acute) Gross hematuria (Acute) DNR (do not resuscitate) (Acute) Physician orders for life-sustaining treatment (POLST) form indicates patient wish for [id number] status (Acute) GI bleed (Chronic) CAD (coronary artery disease) (Chronic) Pacemaker (Acute) Biotronic Amputated left leg (Acute 10/04/13) History of neck surgery (Acute) History of spinal surgery (Acute) Unstable angina pectoris (Acute) Exertional angina (Chronic) CCS class II, stable, improved on higher dose metoprolol Statin intolerance (Chronic) Impaired glucose tolerance (Chronic) Paroxysmal atrial flutter (Chronic) Zio patch Jul 2018 2% atrial flutter w/ longest episode at 6 hr. Tubular adenoma of colon (Chronic) 12/08/14; DR. DUONG Numbness and tingling in right hand (Chronic 04/18/16) suspected carpal tunnel Hypertension (Chronic 07/09/14) He does not need a refill on his pain meds today Hyperplasia of prostate (Chronic) Hypercholesterolemia (Chronic 04/01/13) statin intolerance Hearing loss (Chronic 10/04/13) Gastroesophageal reflux disease with esophagitis (Chronic 04/01/13) Depressive disorder (Chronic 04/01/13) Chronic pain syndrome (Chronic 04/01/13) s/p neck surgery s/p back surgery CONTRACT 04/13/15 07/26/17-CONTROLLED SUBSTANCE AGREEMENT~RENEWED Carpal tunnel syndrome (Chronic 10/16/12) Asthma (Chronic 10/04/13) 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) Actinic keratosis (Chronic) Constipation (Chronic) Iron deficiency anemia (Chronic) secondary to GI bleed of unknown source April 2018 (negative EGD, capsule endoscopy, colonoscopy) we will check new iron level and may need re-infusion with iron.. Still undetermined source for GI bleed. Cardiomyopathy (Chronic) Echocardiogram April 2018 Lvef 40-45%, (was 45-50% in 2016), mild LVH, severe hypokinesis of inferior septal and inferior edwards, mild to moderate mitral regurgitation, LA enlargement, normal RV size and function, possible very small PFO, pulm. systolic pressure 15-25 mm. Pharmacologic stress MPI Dec 2018 normal perfusion but depressed LVEF 34% Medical History Actinic keratosis Asthma BPH (benign prostatic hyperplasia) Carpal tunnel syndrome Chronic pain syndrome Depression GERD (gastroesophageal reflux disease) Hearing loss Hypercholesterolemia Hypertension Tubular adenoma of colon Surgical History BACK/NECK SURGERY Colonoscopy - [facility] 12/08/14 EGD - [facility] (05/14/18) left below knee amputation at age 16 Social History Smoking/Tobacco Use Status: Never Smoking risk assessment performed?: Yes Alcohol Intake: current Alcohol Intake frequency: a few times a month Alcohol type: beer Drug use: Never Substance use type: does not use Household members: significant other What type of physical activity do you participate in: additional Details: yard work Do you feel safe at home: Yes Do you feel safe in your relationship?: Yes Exam Const General: cooperative, healthy appearing, comfortable and no acute distress Orientation: alert, awake and oriented x3 HENMT Head: normal to inspection, normocephalic and atraumatic Face and sinus: normal facial exam Mouth: moist mucous membranes Eyes General: appearance normal, both eyes and all related structures Conjunctivae: conjunctivae normal Neck Neck: normal visual inspection, full ROM, no meningeal signs, trachea midline and supple Resp Effort & Inspection: normal respiratory effort and able to speak in complete sentences Auscultation: clear to auscultation bilaterally Cardio Rate: regular rate Rhythm: regular rhythm Skin General skin exam: erythema Neuro General: patient alert, patient awake, patient oriented x3, moves all extremities and no focal motor deficits Cognition: normal cognition Speech: speech normal Gait: antalgic Motor: muscle tone normal throughout Sensory Exam: no sensory deficits noted Extrem Ankle/foot/toe images: 1. None circumferential tender macular erythema with warmth. It extends to superior of the malleolus and into the mid foot. Skin is intact. Neuro, vascular, tendon intact. Noncircumferential. Negative Homans' sign. Other: Left below the knee amputation. Right pedal pulse and capillary refill unremarkable. Psych Appearance: grossly normal Mental Status: mental status grossly normal Course Vital Signs Vital signs: Vital Signs Temperature 36.6 C 11/03/22 12:26 Pulse 63 11/03/22 12:26 Respiratory Rate 16 11/03/22 12:26 Blood Pressure 130/67 11/03/22 12:26 Pulse Oximetry 95 11/03/22 12:26 Temperature 36.6 C 11/03/22 12:26 Temperature Source Oral 11/03/22 12:26 Pulse 63 11/03/22 12:26 Respiratory Rate 16 11/03/22 12:26 Respiratory Effort Non-Labored 11/03/22 12:34 Blood Pressure 130/67 11/03/22 12:26 Blood Pressure Position Supine 11/03/22 12:26 Pulse Oximetry 95 11/03/22 12:26 Oxygen Delivery Method Room Air 11/03/22 12:26 Oxygen Flow Rate 0 11/03/22 12:26 Pain Level 9 11/03/22 12:26 PAWSS Have you Been Recently Intoxicated or Drunk Within the Last 30 days?: No Have you Ever Experienced Previous Episodes of Alcohol Withdrawal?: No Have you ever Experienced Withdrawal Seizures?: No Have you ever Experienced Delirium Tremens(DT)s?: No Have you ever undergone Alcohol Rehabilitation Treatment (i.e, inpt ot outpatient treatment programs)?: No Have you ever Experienced Blackouts?: No Have you ever Combined Alcohol with other Downers within the last 90 days?: No Have you ever Combined Alcohol with any other Substance of Abuse during the last 90 days?: No Positive Blood Alcohol level on Presentation? [PCS.BAL]: No Evidence of Increased Autonomic Activity (i.e. HR>120, tremor, sweating, agitation, nausea)?: No Result: 0
[2022-11-03 13:05] LABS: Abs Immature Grans 0.05 10^3/uL (0.0-0.06); Absolute Basophil Count 0.05 10^3/uL (0.0-0.2); Absolute Eosinophil Count 0.01 10^3/uL (0.0-0.7); Absolute Monocyte Count 1.08 10^3/uL (0.1-0.8); Absolute Neutrophil Count 10.48 10^3/uL (1.2-6.7); Basophils % 0.4; Eosinophils % 0.1; HCT 42.2 % (40.0-50.0); HGB 13.8 g/dL (13.5-17.5); Immature Grans % 0.4; Lymphocytes % 5.7; MCH 28.8 pg (27.0-33.0); MCHC 32.7 % (32.0-36.0); MCV 88 fL (80-95); MPV 11.1 fL (8.0-11.0); Monocytes % 8.7; Neutrophils % 84.7; Platelet Count 236 10^3/uL (130-400); RBC 4.79 10^6/uL (4.36-5.78); RDW 13.1 % (11.8-14.1); RDW-SD 42.5 fL; WBC 12.37 10^3/uL (4.4-10.8)
[2022-11-03 13:08] LABS: Absolute Lymphocyte Count 0.71 10^3/uL (1.2-3.4)
[2022-11-03 13:47] LABS: ALT 26 U/L (16-63); AST 24 U/L (15-37); Albumin 3.8 g/dL (3.4-5.0); Alkaline Phosphatase 73 U/L (46-116); Anion Gap 9.9 mmol/L (3-11); BUN 14 mg/dL (7-18); Bilirubin, Total 0.9 mg/dL (0.2-1.0); CO2 26.1 mmol/L (21.0-32.0); CREATININE 1.1 mg/dL (0.70-1.30); Calcium 9.3 mg/dL (8.5-10.1); Chloride 100 mmol/L (98-107); Estimated GFR 70.44 (mL/min/1.73m2); Glucose 136 mg/dL (74-106); Potassium 4.2 mmol/L (3.5-5.1); Sodium 136 mmol/L (136-145); Uric Acid 7.2 mg/dL (3.5-7.2)
[2022-11-03 14:13] LABS: Calculated LDL 64 mg/dL (<100); Cholesterol 155 mg/dL (<200); HDL Cholesterol 78 mg/dL (40-60); Triglyceride 66 mg/dL (<150); Vitamin B12 293 pg/mL (193-986)
--- NOTE | 2022-11-03 14:26 | DI.RAD_ITS ---
Exam(s) XR ANKLE RT COMPLETE EXAM: XR ANKLE RT COMPLETE CLINICAL HISTORY: pain. TECHNIQUE: 2D digital imaging was performed. Three views. COMPARISON: CR LEFT TIB/FIB from 11/16/2009 FINDINGS: BONES: No acute fracture is present. No bony destructive lesion is seen. Smoothly marginated bony de nsities are noted beneath the tip of the medial malleolus. JOINTS: The ankle mortise is normally aligned. SOFT TISSUE: Marked swelling. IMPRESSION: Soft tissue swelling around the malleoli. DATA REPOSITORY: RADIATION DOSE DELIVERED:
[2022-11-03] MEDS: MORPHine 4 MG/ML SYR IVP (14:34)
[2022-11-03] MEDS: Cephalexin 500 MG CAP PO (15:34)
[2022-11-03 15:46] VITALS: BP 152/82; PULSE 64; RESP 18; TEMP 37; O2SAT 93
== END 2022-11-03 15:57 | disposition home or self-care (01) ==
PROVIDERS: Emergency Provider Physician Assistant; PCP Family Medicine
DX: L03.115 Cellulitis of right lower limb (principal); I10 Essential (primary) hypertension; I48.91 Unspecified atrial fibrillation; I25.10 Atherosclerotic heart disease of native coronary artery without angina pectoris; J45.909 Unspecified asthma, uncomplicated; D72.829 Elevated white blood cell count, unspecified; G89.4 Chronic pain syndrome; Z79.82 Long term (current) use of aspirin; Z79.01 Long term (current) use of anticoagulants; Z89.512 Acquired absence of left leg below knee; Z79.899 Other long term (current) drug therapy
CPT/HCPCS: 80053; 80061; 96374; 99284; 73610; 82607; 83036; 84550; 85025; J2270

== ENCOUNTER 2023-02-02 03:53 | Outpatient (CLI) | payer MEDICARE, SELFPAY ==
--- NOTE | 2023-02-02 10:30 | DI.US_ITS ---
APPROVED REPORT EXAM: Comprehensive 2D, Doppler, and color-flow Echocardiogram Patient Location: Out-Patient Roofer: Susan Shahid RDCS (AE) Indications: Check LV function, Cardiomyopathy, HTN, Pacer Other Information Study Quality: Adequate Conclusion Normal left ventricular wall thickness and chamber size. Estimated ejection fraction is 40%. There is global hypokinesis Normal right ventricular size and systolic function Both atria are normal in size Device lead noted in the right heart Aortic valve is sclerotic without stenosis or regurgitation Mildly thickened mitral leaflets, mild mitral regurgitation Normal tricuspid valve with mild regurgitation. Estimated right ventricular systolic pressure is 33 mmHg Wall motion Left Ventricle The left ventricle is upper normal size. Left ventricular systolic function is moderately decreased. There is normal left ventricular wall thickness. There is global hypokinesis of the left ventricle. T here is no ventricular septal defect visualized. LVEF is 40%. Right Ventricle The right ventricle is normal size. The right ventricular systolic function is normal. The RVSP is 33 .2 mmHg. Pacemaker lead is present in the right ventricle. Atria The left atrium size is normal. The right atrium size is normal. The interatrial septum is intact wit h no evidence for an atrial septal defect. Aortic Valve The Aortic valve is sclerotic. Aortic valve is trileaflet. There is no aortic valvular stenosis. No a ortic regurgitation is present. Mitral Valve Mildly thickened mitral leaflets No evidence of mitral valve stenosis. Mild mitral regurgitation. Tricuspid Valve The tricuspid valve is normal in structure. There is no tricuspid valve stenosis. Mild tricuspid regu rgitation. Pulmonic Valve The pulmonary valve is normal in structure. There is no pulmonic valvular stenosis. Trace pulmonic re gurgitation. Great Vessels The aortic root is normal in size. The ascending aorta is normal in size. Aortic arch is not well vis ualized. IVC is normal in size and collapses >50% with inspiration. Pericardium There is no pericardial effusion. 2D Dimensions IVSD d PLAX 0.95 cm M: 0.6-1.2 LV Vol A2C d MOD 133.6 mL LVPW d PLAX 0.96 cm M: 0.6 - 1.2 LV Vol A4C d MOD 158.1 mL LVID d PLAX 5.68 cm M: 4.2 - 5.8 LA vol/ BSA A2C s A-L 31.6 mL/m2 LVDs 4.45 cm M: 2.5 - 4.0 LA vol/ BSA A4C s A-L 35.3 mL/m2 Ao Root d 3.16 cm M: 3.1 - 3.7 LA Vol/ BSA Biplane s A-L 34.9 mL/m2 RA Area A4C 10.56 cm2 LA Area A4C s MOD 23.57 cm2 RA Vol/ BSA A4C s A-L 10.6 mL/m2 LA Area A2C s MOD 21.40 cm2 Ao Asc Diam d 3.45 cm M: 2.6 - 3.4 LV EF A4C MOD 40.1 % LV EF Teichholz 42.5 % LV EF A2C MOD 40.7 % LVEF (Borrego's) 41.61 % M: 52 - 72 LV EF Biplane MOD 41.6 % LV Volume 109.49 mL M: 62 - 150 SV 61.93 mL LV Volume Index 51.64 mL/m2 M: 34 - 74 SV Index 29.18 mL/m2 LV Vol Biplane MOD 148.8 mL FS 21.20 % M-Mode TAPSE 2.75 cm (M/F) >1.7 LV Diastology MV E' medial 0.056 (>0.07 m/s) E/A Ratio 0.9 LV E/e MED 15.10 (<14) MV E Vmax 0.85 (0.4-1.3 m/s) MV E' lateral 0.087 (>0.1 m/s) MV A Vmax 1.00 (0.4-1.3 m/s) LV E/e LAT 9.75 (<14) MV E/A Ratio 0.83 MV E/E' medial 15.11 MV E/E' lateral 9.79 Aortic Valve LVOT Area 3.67 cm2 AoV Area Vmax 2.74 cm2 LVOT Vmax 1.09 m/s AoV Area/ BSA (Vmax) 1.29 cm2/m2 LVOT Mean Carlos. 0.70 m/s JOE Mean Carlos. 2.41 cm2 LVOT Peak Grad 4.8 mmHg JOE Mean Carlos. Index 1.13 cm2/m2 LVOT Mean Grad 2.3 mmHg LVOT VTI 0.198 m LVOT Diam s 2.15 cm AoV Vmax 1.46 m/s Velocity Ratio 0.75 AoV Mean Carlos. 1.07 m/s AoV Peak Grad 8.5 mmHg LVOT SV 72.77 mL AoV Mean Grad 5.2 mmHg AoV VTI 0.291 m AoV Area VTI 2.50 cm2 AoV Area/ BSA (VTI) 1.18 cm/m2 Mitral Valve MV DT 217 (160-240 msec) MV PHT 63 msec MV Area PHT 3.50 cm2 MV VTI 0.353 m MV Area VTI 2.06 (4.0-6.0 cm2) Pulmonary Valve PV Vmax 1.11 (0.5-1.5 m/s) RVOT Peak Gr. 3.66 mmHg PV Peak Grad 4.9 mmHg RVOT Mean Gr. 1.75 mmHg PV Mean Grad 2.3 mmHg RVOT VTI 0.185 m PV VTI 0.192 m RVOT Vmax 0.96 m/s Tricuspid Valve TR Peak Grad 30.2 mmHg TR Vmax 2.75 m/s RA Pressure 3.00 mmHg RVSP (TR) 33.2 mmHg
== END 2023-02-02 04:13 ==
PROVIDERS: PCP Family Medicine; Visit Provider Internal Medicine Cardiovascular Disease
DX: I42.9 Cardiomyopathy, unspecified (principal); I10 Essential (primary) hypertension
CPT/HCPCS: 93306

== ENCOUNTER 2023-03-07 07:59 | Outpatient (CLI) | payer MEDICARE, SELFPAY ==
--- NOTE | 2023-03-07 07:45 | RT.EKG_ITS ---
APPROVED REPORT Exam: Resting ECG Reason for Exam: afib, tachycardia Patient Location: O HR:86 bpm ECG Measurements Heart Rate 86 AXIS OR 241 P 62 QRSd 134 QRS -86 QT 411 T 75 QTc 492 Conclusion Sinus rhythm...normal P axis, V-rate 50- 99 Multiple ventricular premature complexes...V complexes w/ short R-R intervls Prolonged OR interval...OR >220, V-rate 50- 90 Probable left atrial enlargement...P >50mS, <-0.10mV V1 LBBB
== END 2023-03-07 08:00 | disposition home or self-care (01) ==
LOC: DI.CARD 08:00
PROVIDERS: PCP Family Medicine; Visit Provider Internal Medicine Cardiovascular Disease
DX: I25.10 Atherosclerotic heart disease of native coronary artery without angina pectoris (principal); I48.92 Unspecified atrial flutter; R00.0 Tachycardia, unspecified
CPT/HCPCS: 93010

== ENCOUNTER → 2023-03-07 13:27 | Outpatient (BNVA) | payer MEDICARE, SELFPAY | PROVIDERS: PCP Family Medicine; Visit Provider Internal Medicine Cardiovascular Disease | DX: I25.10 Atherosclerotic heart disease of native coronary artery without angina pectoris (principal); Z95.0 Presence of cardiac pacemaker; I25.5 Ischemic cardiomyopathy; I48.92 Unspecified atrial flutter; Z79.01 Long term (current) use of anticoagulants; I10 Essential (primary) hypertension | CPT/HCPCS: 93005; 99214 ==

== ENCOUNTER 2023-07-19 12:45 | Outpatient (CLI) | payer MEDICARE, SELFPAY ==
--- NOTE | 2023-07-19 13:00 | RT.EKG_ITS ---
APPROVED REPORT Exam: Resting ECG Reason for Exam: arrhythmia, atrial fibrillation Patient Location: O HR:99 bpm ECG Measurements Heart Rate 99 AXIS IL 133 P 0 QRSd 140 QRS -16 QT 408 T 161 QTc 524 Conclusion Artifact Probably atrial and ventricular paced rhythm with PVC Baseline wander in lead(s) V1,V2,V5,V6
== END 2023-07-19 12:46 | disposition home or self-care (01) ==
LOC: DI.CARD 13:08
PROVIDERS: PCP Family Medicine; Visit Provider Internal Medicine Cardiovascular Disease
DX: I20.8 Other forms of angina pectoris (principal); I42.9 Cardiomyopathy, unspecified
CPT/HCPCS: 93005; 93010; 93280

== ENCOUNTER → 2023-07-19 12:45 | Outpatient (BNVA) | payer MEDICARE, SELFPAY | PROVIDERS: PCP Family Medicine; Visit Provider Internal Medicine Cardiovascular Disease | DX: I20.8 Other forms of angina pectoris (principal); I25.5 Ischemic cardiomyopathy; Z95.0 Presence of cardiac pacemaker | CPT/HCPCS: 93005; 93280 ==

== ENCOUNTER → 2023-09-04 13:04 | Outpatient (BNVA) | payer MEDICARE, SELFPAY | PROVIDERS: PCP Family Medicine; Visit Provider Internal Medicine Cardiovascular Disease | DX: I48.91 Unspecified atrial fibrillation (principal); Z79.01 Long term (current) use of anticoagulants; I25.5 Ischemic cardiomyopathy; Z95.0 Presence of cardiac pacemaker; I10 Essential (primary) hypertension | CPT/HCPCS: 99214 ==

== ENCOUNTER → 2024-02-27 03:05 | Outpatient (CLI) | payer MEDICARE, SELFPAY ==
--- NOTE | 2024-02-27 12:30 | DI.US_ITS ---
APPROVED REPORT EXAM: Comprehensive 2D, Doppler, and color-flow Echocardiogram Patient Location: Out-Patient [facility] Worker: Susan Shahid RDCS (AE) Indications: Check LV function, Cardiomyopathy, Atrial fibrillation, Pacemaker Other Information Study Quality: Adequate. Technically limited study due to body habitus. Conclusion Normal left ventricular wall thickness, top normal chamber size. EF 35-40% with moderately dysynchron ous contraction Normal right ventricular size and function Both atria are mildly dilated Device lead in the right heart Aortic valve sclerosis without stenosis or regurgitation RVSP is 26 mmHg Wall motion Left Ventricle The left ventricle is normal size. Left ventricular systolic function is moderately decreased. There is normal left ventricular wall thickness. There is global hypokinesis of the left ventricle. There i s no ventricular septal defect visualized. LVEF is 35- 40%. Right Ventricle The right ventricle is normal size. The right ventricular systolic function is normal. Pacemaker lead is present in the right ventricle. Atria Left atrium is mildly dilated. Right atrium is mildly dilated. The interatrial septum is intact with no evidence for an atrial septal defect. Aortic Valve The Aortic valve is sclerotic. Aortic valve is trileaflet. There is no aortic valvular stenosis. No a ortic regurgitation is present. Mitral Valve The mitral valve is normal in structure. No evidence of mitral valve stenosis. Trace to mild mitral r egurgitation. Tricuspid Valve The tricuspid valve is normal in structure. There is no tricuspid valve stenosis. Mild tricuspid regu rgitation. The RVSP is 25.7 mmHg. Pulmonic Valve The pulmonary valve is normal in structure. There is no pulmonic valvular stenosis. Trace pulmonic re gurgitation. Great Vessels The aortic root is normal in size. The ascending aorta is normal in size. Aortic arch is not well vis ualized. IVC is normal in size and collapses >50% with inspiration. Pericardium There is no pericardial effusion. 2D Dimensions IVSD d PLAX 0.90 cm M: 0.6-1.2 Ao Root d 2.98 cm M: 3.1 - 3.7 LVPW d PLAX 0.90 cm M: 0.6 - 1.2 Ao Asc Diam d 2.88 cm M: 2.6 - 3.4 LVID d PLAX 5.47 cm M: 4.2 - 5.8 LVDs 4.38 cm M: 2.5 - 4.0 LV EF Teichholz 40.3 % FS 19.88 % LV EDV (Teich) 145.6 mL LV ESV (Teich) 86.9 mL Auto EF LV EDV A4C 102.2 mL LV EDV A2C 123.9 mL LV EDV BP 112.7 mL LV ESV A4C 64.3 mL LV ESV A2C 70.2 mL LV ESV BP 68.1 mL LVEF(%) A4C 37.1 % LVEF(%) A2C 43.3 % LVEF(%) BP 39.6 % LV SV A4C 37.9 ml LV SV A2C 53.7 ml LV SV BP 44.6 ml LV CO A4C 2.6 L/min LV CO A2C 3.7 L/min LV CO BP 3.2 L/min HR A4C 69.10 BPM HR A2C 69.36 BPM LV EDV Index (BP) LV Strain Long Pk Overal Avg (s) 12.17 LA Volume LA Length A4C 5.4 cm LA Length A2C 5.1 cm LA Area A4C s 17.12 cm2 LA Area A2C s 18.27 cm2 LA Vol A4C A-L 45.88 mL LA Vol A2C A-L 55.34 mL LA Vol Biplane A-L 51.8 mL LA Vol/BSA A4C A-L LA Vol/BSA A2C A-L LA Vol/BSA BP A-L 25.5 mL/m2 LA Vol A4C MOD 40.5 mL LA Vol A2C MOD 53.5 mL LA Vol BP MOD 47.6 mL RA Volume RA Area A4C 15.5 cm2 RA ESV A4C (A-L) 43.2mL RA Vol/BSA A4C A-L RA Length A4C 4.7 cm RA ESV A4C (MOD) 41.4mL LV Diastology MV E' medial 0.097 (>0.07 m/s) MV E Vmax 1.07 (0.4-1.3 m/s) MV E/E' MED 10.96 (<14) MV A Vmax 0.50 (0.4-1.3 m/s) MV E' lateral 0.113 (>0.1 m/s) E/A Ratio 2.1 MV E/E' LAT 9.41 (<14) MV E' Average 0.105 m/s MV E/E'(average) 10.12 Aortic Valve AoV Vmax 1.15 m/s LVOT Vmax 0.83 m/s AoV Peak Grad 5.3 mmHg LVOT Peak Grad 2.7 mmHg AoV Area (Vmax) 2.22 cm2 LVOT VTI 0.178 m AoV VTI 0.257 m LVOT Mean Grad 1.5 mmHg AoV Mean Carlos. 0.80 m/s LVOT SV 55.10 mL AoV Mean Grad 3.0 mmHg LVOT Diam s 1.95 cm AoV Area (VTI) 2.14 cm2 Velocity Ratio 0.72 Mitral Valve MV DT 124 (160-240 msec) MV Vmax TIPS 1.03 m/s MV Mean Grad 1.8 (<2mmHg) MV VTI 0.323 m Pulmonary Valve PV Vmax 0.87 (0.5-1.5 m/s) RVOT Vmax 0.68 m/s PV Peak Grad 3.0 mmHg RVOT Peak Gr. 1.8 mmHg PV Mean Carlos 0.55 m/s RVOT VTI 0.139 m PV Mean Grad 1.5 mmHg RVOT Mean Gr. 1.0 mmHg Tricuspid Valve RA Pressure 3.00 mmHg TR Vmax 2.38 m/s TV S' 0.15 m/s TR Peak Grad 22.7 mmHg RVSP (TR) 25.7 mmHg
== END ==
PROVIDERS: PCP Family Medicine; Visit Provider Internal Medicine Cardiovascular Disease
DX: I48.91 Unspecified atrial fibrillation (principal); I42.9 Cardiomyopathy, unspecified
CPT/HCPCS: 93306

== ENCOUNTER 2024-02-27 13:23 | Outpatient (CLI) | payer MEDICARE, SELFPAY ==
[2024-02-27 12:58] LABS: HCT 47.7 % (40.0-50.0); MCH 30.9 pg (27.0-33.0); MCHC 33.5 % (32.0-36.0); MCV 92 fL (80-95); MPV 10.8 fL (8.0-11.0); Platelet Count 258 10^3/uL (130-400); RBC 5.18 10^6/uL (4.36-5.78); RDW 13.4 % (11.8-14.1); WBC 9.56 10^3/uL (4.4-10.8)
[2024-02-27 13:56] LABS: ALT 41 U/L (16-63); AST 34 U/L (15-37); Albumin 4.1 g/dL (3.4-5.0); Alkaline Phosphatase 97 U/L (46-116); BUN 16 mg/dL (7-18); CREATININE 1.1 mg/dL (0.70-1.30); Chloride 105 mmol/L (98-107); Estimated GFR 70.01 (mL/min/1.73m2); Glucose 118 mg/dL (74-106); Sodium 144 mmol/L (136-145); Total Protein 8.3 g/dL (6.4-8.2)
[2024-02-27 13:59] LABS: Hemoglobin A1C 5.8 % (<5.7)
[2024-02-27 14:07] LABS: Calcium 9.2 mg/dL (8.5-10.1)
== END 2024-02-27 13:24 | disposition home or self-care (01) ==
LOC: LBO 13:24
PROVIDERS: PCP Family Medicine; Visit Provider Family Medicine
DX: I10 Essential (primary) hypertension (principal); Z79.01 Long term (current) use of anticoagulants; E11.9 Type 2 diabetes mellitus without complications
CPT/HCPCS: 36415; 80053; 85027; 93306; 83036

== ENCOUNTER → 2024-03-07 13:11 | Outpatient (BNVA) | payer MEDICARE, SELFPAY | PROVIDERS: PCP Family Medicine; Visit Provider Internal Medicine Cardiovascular Disease | DX: I48.0 Paroxysmal atrial fibrillation (principal); I25.5 Ischemic cardiomyopathy; Z95.0 Presence of cardiac pacemaker | CPT/HCPCS: 99213 ==

== ENCOUNTER → 2024-04-17 12:46 | Outpatient (BNVA) | payer MEDICARE, SELFPAY | PROVIDERS: PCP Family Medicine; Referring Provider Family Medicine; Visit Provider Internal Medicine Cardiovascular Disease | DX: Z95.810 Presence of automatic (implantable) cardiac defibrillator (principal) | CPT/HCPCS: 93280 ==

== ENCOUNTER → 2024-09-05 13:31 | Outpatient (BNVA) | payer MEDICARE, SELFPAY | PROVIDERS: PCP Family Medicine; Visit Provider Internal Medicine Cardiovascular Disease | DX: I48.0 Paroxysmal atrial fibrillation (principal); I25.5 Ischemic cardiomyopathy | CPT/HCPCS: 99213 ==

== ENCOUNTER 2024-12-13 01:00 | Outpatient (CLI) | payer MEDICARE, SELFPAY ==
--- OUTSIDE RECORDS SUMMARY | 2024-12-13 01:21 | XMS_ITS | Encounter Summary ---
[place] [address] Care Team Providers Care Dryland Farmer Name Role Phone Yoko Dhaliwal MD Primary Care Provider Elias virk Encounter Details Date Type Department Care Team (Latest Contact Info) Description 06/17/2023 10:00 AM EDT - 06/17/2023 11:59 PM EDT Hospital Encounter [place] [address] Discharge Disposition: Home Social History Tobacco Use Types Packs/Day Years Used Date Smoking Tobacco: Former Cigarettes Q uit: 07/18/1983 Smokeless Tobacco: Never Alcohol Use Standard Drinks/Week Comments Yes 0 (1 standard drink = 0.6 oz pur e alcohol) social Sex and Gender Information Value Date Recorded Sex Assigned at Not on file Gender Identity Not on file Sexual Orientation Not on file documented as of this encounter Medications at Time of Discharge Medication Sig Dispensed Refills Start Date End Date traMADol (ULTRAM) 50 mg Tablet 05/13/2019 albuterol 90 mcg/actuation HFA Aerosol Inhaler Inhale 2 puffs into the lungs Every 6 hours as needed. UNABLE TO FIND Besylate 10 mg daily ELIQUIS 5 mg Tablet 05/23/2019 aspirin 81 mg Tablet, Delayed Release (E.C.) Take 1 tablet by mouth daily. 30 tablet 3 01/01/2019 atorvastatin (LIPITOR) 80 mg Tablet Take 1 tablet by mouth every evening. 90 tablet 3 01/01/2019 clopidogrel (PLAVIX) 75 mg Tablet Take 1 tablet by mouth daily. 90 tablet 3 01/01/2019 nitroGLYcerin (NITROSTAT) 0.4 mg Tablet, Sublingual Place 1 tablet under the tongue every 5 minutes as needed for Chest pain. 90 tablet 12 01/01/2019 amLODIPine (NORVASC) 10 mg Tablet Take 10 mg by mouth daily. pediatric multivitamin with iron Tablet, Chewable Take 1 tablet by mouth daily. acetaminophen-codeine (TYLENOL #3) 300-30 mg Tablet Take 2 tablets by mouth every 6 hours as needed for Pain. 40 tablet 07/25/2018 polyethylene glycol (MIRALAX) 17 gram Powder in Packet Take 17 g by mouth daily. docusate sodium (COLACE) 100 mg Capsule TAKE ONE CAPSULE BY MOUTH TWICE A DAY 0 04/28/2018 esomeprazole (NEXIUM) 40 mg Capsule, Delayed Release(E.C.) TAKE ONE CAPSULE BY MOUTH EVERY DAY 3 05/17/2018 SENNA LAXATIVE 8.6 mg Tablet TAKE 1 TABLET BY MOUTH AT BEDTIME 0 06/02/2018 fluticasone (FLONASE) 50 mcg/actuation [place], Suspension USE 2 SPRAYS NASALLY DAILY 3 04/27/2018 lisinopril (PRINIVIL;ZESTRIL) 20 mg Tablet Take 20 mg by mouth daily. CIS Free Text Med - Albuterol 2 Puff(s), Inh, Four times daily PRN 06/22/2006 metoprolol succinate (TOPROL-XL) 50 mg Tablet Sustained Release 24 hr TAKE ONE TABLET BY MOUTH AT BEDTIME 3 04/27/2018 07/19/2023 documented as of this encounter Plan of Treatment Upcoming Encounters Date Type Department Care Team (Late st Contact Info) Description 03/08/2025 10:00 AM EDT Hospital Encounter [place] [address] Arrived documented as of this encounter Procedures Procedure Name Priority Date/Time Associated Diagnosis Comments PRO PM INTERROGATION REMOTE UP TO 90 DAYS Routine 04/19/2023 3:57 AM EDT documented in this encounter Results * Cardiac Device Check - Remote (04/19/2023 3:57 AM EDT) Anatomical Region Laterality Modality Other 04/19/2023 3:57 AM EDT Pk Darnell MD IMPLANTABLE CARDIAC DEVICE documented in this encounter Visit Diagnoses Not on filedocumented in this encounter Care Teams Dryland Farmer Relationship Specialty Start Date End Date Yoko Dhaliwal MD PCP - General Internal Medicine 06/25/18 11/21/24 documented as of this encounter
--- OUTSIDE RECORDS SUMMARY | 2024-12-13 01:21 | XMS_ITS | Encounter Summary ---
Author Organization [place] [id number] Care Team Providers Care Supervisor Home Restoration Service Name Role Phone Yoko Dhaliwal MD Primary Care Provider Elias virk Encounter Details Date Type Department Care Team (Late st Contact Info) Description 08/21/2023 Telephone Cardiology at [address] [phone] Rachell Turpin Social History Tobacco Use Types Packs/Day Years [...] on file documented as of this encounter Miscellaneous Notes * Telephone Encounter - Rachell Turpin - 08/21/2023 9:37 AM EDT Pt is followed by Dr. Pk Darnell (EP) at [facility]. Last appt with Dr. Darnell was 07/19/23. Rachell Turpin Sr. Clinical Procedure Associate Engineer/Force Adjustment Supervisor documented in this encounter Plan of Treatment Upcoming Encounters Date Type Department Care Team (Late st Contact Info) Description 03/08/2025 10:00 AM EDT Hospital Encounter Non-Invasive [place] [phone] Arrived documented as of this encounter Visit Diagnoses Not on filedocumented in this encounter Care Teams Supervisor Home Restoration Service Relationship Specialty Start Date End Date Yoko Dhaliwal MD PCP - General Internal Medicine 06/25/18 11/21/24 documented as of this encounter
--- OUTSIDE RECORDS SUMMARY | 2024-12-13 01:21 | XMS_ITS | Encounter Summary ---
[place] [address] Care Team Providers Care Burial Vault Deliverer And Installer Name Role Phone Yoko Dhaliwal MD Primary Care Provider Elias virk Encounter Details Date Type Department Care Team (Latest Contact Info) Description 03/19/2023 10:00 AM EDT - 03/19/2023 11:59 PM EDT Hospital Encounter Non-Invasive [place] [address] Discharge Disposition: Home Social History [...] BEDTIME 0 06/02/2018 fluticasone (FLONASE) 50 mcg/actuation [place], Suspension USE 2 SPRAYS NASALLY DAILY 3 [...] AM EDT Hospital Encounter Non-Invasive [place] [address] Arrived documented as of this encounter Procedures Procedure Name Priority Date/Time Associated Diagnosis Comments PRO PM INTERROGATION REMOTE UP TO 90 DAYS Routine 01/19/2023 3:31 AM EST documented in this encounter Results * Cardiac Device Check - Remote (01/19/2023 3:31 AM EST) Anatomical Region Laterality Modality Other 01/19/2023 3:31 AM EST Mikhail Florence MD IMPLANTABLE CARDIAC DEVICE documented in this encounter Visit Diagnoses Not on filedocumented in this encounter Care Teams Burial Vault Deliverer And Installer Relationship Specialty Start Date End Date Yoko Dhaliwal MD PCP - General Internal Medicine 06/25/18 11/21/24 documented as of this encounter
--- OUTSIDE RECORDS SUMMARY | 2024-12-13 01:21 | XMS_ITS | Encounter Summary ---
[place] [address] Care Team Providers Care Principal Developer Name Role Phone Inactive, Pcp External Primary Care Provider Nunu vailable Encounter Details Date Type Department Care Team (Latest Contact Info) Description 12/08/2024 10:00 AM EST - 12/08/2024 11:59 PM EST Hospital Encounter Non-[place] [address] Arrived Discharge Disposition: Home Social History Tobacco Use [...] Sig Dispensed Refills Start Date End Date metoprolol succinate XL (Toprol-XL) 50 mg ER 24 hr tabletIndications:Cardiom yopathy, unspecified type Take 1 tablet by mouth nightly. 90 tablet 2 07/19/2023 traMADol (ULTRAM) 50 mg Tablet 05/13/2019 albuterol [...] BEDTIME 0 06/02/2018 fluticasone (FLONASE) 50 mcg/actuation [place], Suspension USE 2 SPRAYS NASALLY DAILY 3 04/27/2018 lisinopril (PRINIVIL;ZESTRIL) 20 mg Tablet Take 20 mg by mouth daily. CIS Free Text Med - Albuterol 2 Puff(s), Inh, Four times daily PRN 06/22/2006 documented as of this encounter Plan of Treatment Upcoming Encounters Date Type Department Care Team (Late st Contact Info) Description 03/08/2025 10:00 AM EDT Hospital Encounter Non-[place] [address] Arrived documented as of this encounter Procedures Procedure Name Priority Date/Time Associated Diagnosis Comments PRO PM INTERROGATION REMOTE UP TO 90 DAYS Routine 10/14/2024 3:30 AM EST documented in this encounter Results * Cardiac Device Check - Remote (10/14/2024 3:30 AM EST) Anatomical Region Laterality Modality Other 10/14/2024 3:30 AM EST Sean Mclaughlin MD IMPLANTABLE CARDIAC DEVICE documented in this encounter Visit Diagnoses Not on filedocumented in this encounter Care Teams Principal Developer Relationship Specialty Start Date End Date Inactive, Pcp External PCP - General 11/29/24 documented as of this encounter
--- OUTSIDE RECORDS SUMMARY | 2024-12-13 01:21 | XMS_ITS | Encounter Summary ---
[place] [address] Care Team Providers Care Methods Study Analyst Name Role Phone Yoko Dhaliwal MD Primary Care Provider Elias virk Encounter Details Date Type Department Care Team (Latest Contact Info) Description 09/09/2024 10:00 AM EDT - 09/09/2024 11:59 PM EDT Hospital Encounter Non-Invasive [place] [address] Discharge Disposition: Home Social History [...] BEDTIME 0 06/02/2018 fluticasone (FLONASE) 50 mcg/actuation [place], Suspension USE 2 SPRAYS NASALLY DAILY 3 04/27/2018 lisinopril (PRINIVIL;ZESTRIL) 20 mg Tablet Take 20 mg by mouth daily. CIS Free Text Med - Albuterol 2 Puff(s), Inh, Four times daily PRN 06/22/2006 documented as of this encounter Plan of Treatment Upcoming Encounters Date Type Department Care Team (Late st Contact Info) Description 03/08/2025 10:00 AM EDT Hospital Encounter Non-Invasive [place] [phone] Arrived documented as of this encounter Procedures Procedure Name Priority Date/Time Associated Diagnosis Comments PRO PM INTERROGATION REMOTE UP TO 90 DAYS Routine 07/15/2024 5:06 AM EDT documented in this encounter Results * Cardiac Device Check - Remote (07/15/2024 5:06 AM EDT) Anatomical Region Laterality Modality Other 07/15/2024 5:06 AM EDT Mikhail Florence MD IMPLANTABLE CARDIAC DEVICE documented in this encounter Visit Diagnoses Not on filedocumented in this encounter Care Teams Methods Study Analyst Relationship Specialty Start Date End Date Yoko Dhaliwal MD PCP - General Internal Medicine 06/25/18 11/21/24 documented as of this encounter
--- OUTSIDE RECORDS SUMMARY | 2024-12-13 01:21 | XMS_ITS | Encounter Summary ---
Author Organization [facility] [place] [address] Care Team Providers Care Condenser Winder Name Role Phone Yoko Dhaliwal MD Primary Care Provider Unavaila ble Encounter Details Date Type Department Care Team (Late st Contact Info) Description 09/27/2022 Orders Only Cardiology at [address] [phone] Dontrell Vickers PA [facility] [place] [address] Social History Tobacco Use Types Packs/Day Years [...] on file documented as of this encounter Plan of Treatment Upcoming Encounters Date Type Department Care Team (Late st Contact Info) Description 03/08/2025 10:00 AM EDT Hospital Encounter [place] [phone] Arrived documented as of this encounter Procedures Procedure Name Priority Date/Time Associated Diagnosis Comments PRO PM INTERROGATION REMOTE UP TO 90 DAYS Routine 10/21/2022 4:06 AM EST CARDIAC DEVICE CHECK - REMOTE Routine 09/27/2022 4:15 AM EST documented in this encounter Results * Cardiac Device Check - Remote (10/21/2022 4:06 AM EST) Anatomical Region Laterality Modality Other 10/21/2022 4:06 AM EST Pk Darnell MD IMPLANTABLE CARDIAC DEVICE * Cardiac Device Check - Remote (09/27/2022 4:15 AM EST) Anatomical Region Laterality Modality Other 09/27/2022 4:15 AM EST Dontrell LYLES IMPLANTABLE CARDIAC DEVICE documented in this encounter Visit Diagnoses Not on filedocumented in this encounter Care Teams Condenser Winder Relationship Specialty Start Date End Date Yoko Dhaliwal MD PCP - General Internal Medicine 06/25/18 11/21/24 documented as of this encounter
--- OUTSIDE RECORDS SUMMARY | 2024-12-13 01:21 | XMS_ITS | Encounter Summary ---
[place] [address] Care Team Providers Care Lithograph Press Operator Tinware Name Role Phone Yoko Dhaliwal MD Primary Care Provider Elias virk Encounter Details Date Type Department Care Team (Latest Contact Info) Description 12/19/2022 10:00 AM EST - 12/19/2022 11:59 PM EST Hospital Encounter Non-[place] [address] Discharge Disposition: Home Social History [...] BEDTIME 0 06/02/2018 fluticasone (FLONASE) 50 mcg/actuation [place], Suspension USE 2 SPRAYS NASALLY DAILY 3 [...] AM EDT Hospital Encounter Non-[place]vasive [place] [address] Arrived documented as of this encounter Procedures Procedure Name Priority Date/Time Associated Diagnosis Comments CARDIAC DEVICE CHECK - REMOTE Routine 11/19/2022 3:54 AM EST documented in this encounter Results * Cardiac Device Check - Remote (11/19/2022 3:54 AM EST) Anatomical Region Laterality Modality Other 11/19/2022 3:54 AM EST Yoko Francisco APRN IMPLANTABLE CARDIAC DEVICE documented in this encounter Visit Diagnoses Not on filedocumented in this encounter Care Teams Lithograph Press Operator Tinware Relationship Specialty Start Date End Date Yoko Dhaliwal MD PCP - General Internal Medicine 06/25/18 11/21/24 documented as of this encounter
--- OUTSIDE RECORDS SUMMARY | 2024-12-13 01:21 | XMS_ITS | Encounter Summary ---
[place] [address] Care Team Providers Care Clinical Education Assistant Name Role Phone Yoko Dhaliwal MD Primary Care Provider Elias virk Encounter Details Date Type Department Care Team (Late st Contact Info) Description 12/27/2023 Telephone Cardiology at [address] [phone] Rachell Turpin Social History Tobacco [...] * Telephone Encounter - Rachell Turpin - 12/27/2023 8:54 AM EST Message sent to Arian Smallwood RN at [facility] with pt cherry and 12/18/23 remote download. She will begetting pt scheduled with Dr. Carie bernard at [facility]. Rachell Turpin Sr. Clinical Procedure Lincoln/Welder Fabricator documented in this encounter Plan of Treatment Upcoming Encounters Date Type Department Care Team (Late st Contact Info) Description 03/08/2025 10:00 AM EDT Hospital Encounter Non-[place] [address] Arrived documented as of this encounter Visit Diagnoses Not on filedocumented in this encounter Care Teams Clinical Education Assistant Relationship Specialty Start Date End Date Yoko Dhaliwal MD PCP - General Internal Medicine 06/25/18 11/21/24 documented as of this encounter
--- OUTSIDE RECORDS SUMMARY | 2024-12-13 01:21 | XMS_ITS | Encounter Summary ---
[place] [address] Care Team Providers Care Live Hanger Name Role Phone Yoko Dhaliwal MD Primary Care Provider Unavaila ble Encounter Details Date Type Department Care Team (Late st Contact Info) Description 01/24/2023 Telephone Cardiology at [address] [phone] Rachell Turpin Social History Tobacco [...] * Telephone Encounter - Rachell Turpin - 01/24/2023 11:07 AM EDT 01/19/23 remote pacemaker download faxed to Dr. Yoko Dhaliwal (PCP) at [phone]. Rachell Turpin EP Scheduling/Rod Mill Tender documented in this encounter Plan of Treatment Upcoming Encounters Date Type Department Care Team (Late st Contact Info) Description 03/08/2025 10:00 AM EDT Hospital Encounter Non-[place] [address] Arrived documented as of this encounter Visit Diagnoses Not on filedocumented in this encounter Care Teams Live Hanger Relationship Specialty Start Date End Date Yoko Dhaliwal MD PCP - General Internal Medicine 06/25/18 11/21/24 documented as of this encounter
--- OUTSIDE RECORDS SUMMARY | 2024-12-13 01:21 | XMS_ITS | Encounter Summary ---
Author Organization [facility] [place] [address] Care Team Providers Care Microwave Engineer Name Role Phone Yoko Dhaliwal MD Primary Care Provider Sona ble Encounter Details Date Type Department Care Team (Late st Contact Info) Description 07/19/2023 Orders Only Cardiology at [address] [phone] Pk Darnell MD [facility] [place] [address] Cardiomyopathy, unspecified type Social History Tobacco Use Types Packs/Day Years [...] AM EDT Hospital Encounter Non-Invasive [place] [phone] Arrived documented as of this encounter Visit Diagnoses Diagnosis Cardiomyopathy, unspecified type documented in this encounter Care Teams Microwave Engineer Relationship Specialty Start Date End Date Yoko Dhaliwal MD PCP - General Internal Medicine 06/25/18 11/21/24 documented as of this encounter
--- OUTSIDE RECORDS SUMMARY | 2024-12-13 01:21 | XMS_ITS | Encounter Summary ---
[place] [address] Care Team Providers Care Warehouse Lead Name Role Phone Yoko Dhaliwal MD Primary Care Provider Elias virk Encounter Details Date Type Department Care Team (Latest Contact Info) Description 06/11/2024 10:00 AM EDT - 06/11/2024 11:59 PM EDT Hospital Encounter Non[place] [address] Discharge Disposition: Home Social History [...] BEDTIME 0 06/02/2018 fluticasone (FLONASE) 50 mcg/actuation [place], Suspension USE 2 SPRAYS NASALLY DAILY 3 04/27/2018 lisinopril (PRINIVIL;ZESTRIL) 20 mg Tablet Take 20 mg by mouth daily. CIS Free Text Med - Albuterol 2 Puff(s), Inh, Four times daily PRN 06/22/2006 documented as of this encounter Plan of Treatment Upcoming Encounters Date Type Department Care Team (Late st Contact Info) Description 03/08/2025 10:00 AM EDT Hospital Encounter Non-[place] [phone] Arrived documented as of this encounter Procedures Procedure Name Priority Date/Time Associated Diagnosis Comments PRO PM INTERROGATION REMOTE UP TO 90 DAYS Routine 04/15/2024 3:57 AM EDT documented in this encounter Results * Cardiac Device Check - Remote (04/15/2024 3:57 AM EDT) Anatomical Region Laterality Modality Other 04/15/2024 3:57 AM EDT Fabian Nieves MD IMPLANTABLE CARDIAC DEVICE documented in this encounter Visit Diagnoses Not on filedocumented in this encounter Care Teams Warehouse Lead Relationship Specialty Start Date End Date Yoko Dhaliwal MD PCP - General Internal Medicine 06/25/18 11/21/24 documented as of this encounter
--- OUTSIDE RECORDS SUMMARY | 2024-12-13 01:21 | XMS_ITS | Clinical Summary ---
Author Organization [facility] Address [facility] [place] [address] Care Team Providers Care Barge Master Name Role Phone Inactive, Pcp External Primary Care Provider Nunu vailable Allergies Active Allergy Reactions Criticality Noted Date Comments Influenza Virus Vaccine Bivalent Anaphylaxis High Medications Medication Sig Dispensed Refills Start Date End Date Status CIS Free Text Med - Albuterol 2 Puff(s), Inh, Four times daily PRN 06/22/2006 Active docusate sodium (COLACE) 100 mg Capsule TAKE ONE CAPSULE BY MOUTH TWICE A DAY 0 04/28/2018 Active esomeprazole (NEXIUM) 40 mg Capsule, Delayed Release(E.C.) TAKE ONE CAPSULE BY MOUTH EVERY DAY 3 05/17/2018 Active SENNA LAXATIVE 8.6 mg Tablet TAKE 1 TABLET BY MOUTH AT BEDTIME 0 06/02/2018 Active fluticasone (FLONASE) 50 mcg/actuation [place], Suspension USE 2 SPRAYS NASALLY DAILY 3 04/27/2018 Active lisinopril (PRINIVIL;ZESTRIL) 20 mg Tablet Take 20 mg by mouth daily. Active polyethylene glycol (MIRALAX) 17 gram Powder in Packet Take 17 g by mouth daily. Active acetaminophen-codein e (TYLENOL #3) 300-30 mg Tablet Take 2 tablets by mouth every 6 hours as needed for Pain. 40 tablet 07/25/2018 Active pediatric multivitamin with iron Tablet, Chewable Take 1 tablet by mouth daily. Active amLODIPine (NORVASC) 10 mg Tablet Take 10 mg by mouth daily. Active aspirin 81 mg Tablet, Delayed Release (E.C.) Take 1 tablet by mouth daily. 30 tablet 3 01/01/2019 Active atorvastatin (LIPITOR) 80 mg Tablet Take 1 tablet by mouth every evening. 90 tablet 3 01/01/2019 Active clopidogrel (PLAVIX) 75 mg Tablet Take 1 tablet by mouth daily. 90 tablet 3 01/01/2019 Active nitroGLYcerin (NITROSTAT) 0.4 mg Tablet, Sublingual Place 1 tablet under the tongue every 5 minutes as needed for Chest pain. 90 tablet 12 01/01/2019 Active Additional Information Patient not taking.Reported on 06/03/2019 traMADol (ULTRAM) 50 mg Tablet 05/13/2019 Active albuterol 90 mcg/actuation HFA Aerosol Inhaler Inhale 2 puffs into the lungs Every 6 hours as needed. Active UNABLE TO FIND Besylate 10 mg daily Active ELIQUIS 5 mg Tablet 05/23/2019 Activ e metoprolol succinate XL (Toprol-XL) 50 mg ER 24 hr tabletIndications:Ca rdiomyopathy, unspecified type Take 1 tablet by mouth nightly. 90 tablet 2 07/19/2023 Active Active Problems Problem Noted Date Diagnosed Date Pacemaker - Biotronik dual lead pacemaker 2020 Overview (01/28/2021): Biotronik Gina 8 KEZNIE #[id number] RA RV Unstable angina 12/31/2018 Angina pectoris 12/28/2018 Overview (12/28/2018): CCS III (20 feet) Started in Fall of 12/2018: NST at OSH without ischemia 12/2018: TTE at OSH LVEF 45-50% with inferoseptal/inferior HK Essential hypertension 12/28/2018 HLD (hyperlipidemia) 12/28/2018 Gastroesophageal reflux 12/28/2018 GIB (gastrointestinal bleeding), history of 12/14 Overview (12/28/2018): Workup: negative EGD, colonoscopy, capsule endoscopy Typical atrial flutter 12/28/2018 Overview (12/28/2018): 6 hours on prior workup. No palpitations in a while Not on OAC per outpatient visual c developer, awaiting cath Chest pain 12/28/2018 Foreign body in small intestine 07/18/2018 Encounters Date Type Department Care Team Description 12/08/2024 10:00 AM EST - 12/08/2024 11:59 PM EST Hospital Encounter Non-Invasive [place] [phone] Arrived Discharge Disposition: Home from Last 3 Months Immunizations Name Administration Dates Next Due Influenza Vaccine, Whole 09/15/2005 Social History Tobacco Use Types Packs/Day Years Used Date Smoking Tobacco: Former Cigarettes Q uit: 07/18/1983 Smokeless Tobacco: Never Alcohol Use Standard Drinks/Week Comments Yes 0 (1 standard drink = 0.6 oz pur e alcohol) social Sex and Gender Information Value Date Recorded Sex Assigned at Not on file Gender Identity Not on file Sexual Orientation Not on file Last Filed Vital Signs Vital Sign Reading Time Taken Comments Blood Pressure 132/58 06/03/2019 2:03 PM EDT Pulse 89 06/03/2019 2:03 PM EDT Temperature 37 ??C (98.6 ??F) 06/03/2019 2:03 PM EDT Respiratory Rate 16 06/03/2019 2:03 PM EDT Oxygen Saturation 98% 06/03/2019 2:03 PM EDT Inhaled Oxygen Concentration - - Weight 90.2 kg (198 lb 12.8 oz) 06/03/2019 2:03 PM EDT Height 172.8 cm (5' 8.03) 06/03/2019 2:03 PM ED T Body Mass Index 30.2 06/03/2019 2:03 PM EDT Plan of Treatment Upcoming Encounters Date Type Department Care Team (Late st Contact Info) Description 03/08/2025 10:00 AM EDT Hospital Encounter Non-Invasive [place] [address] Arrived Health Maintenance Due Date Last Done Comments Hepatitis C Screening 1968 Tetanus/Diphtheria/Pertussis Vaccines (1 - Tdap) 05/09 Pneumoccocal Vaccine: 50+ (1 of 1 - PCV) 1998 Zoster vaccine (1 of 2) 1998 RSV Vaccine (1 - 1-dose 75+ series) 2023 Covid-19 Vaccine ( season) 2024 Influenza (Flu) vaccine (1 o f 1 - Influenza standard series) 07/14/2024 09/15/2005 Procedures Procedure Name Priority Date/Time Associated Diagnosis Comments PRO PM INTERROGATION REMOTE UP TO 90 DAYS Routine 10/14/2024 3:30 AM EST from Last 3 Months Results * Cardiac Device Check - Remote (10/14/2024 3:30 AM EST) Anatomical Region Laterality Modality Other 10/14/2024 3:30 AM EST Sean Mclaughlin MD IMPLANTABLE CARDIAC DEVICE from Last 3 Months Advance Directives Documents on File Type Date Recorded Patient Lawn Mower Repairer Expl anation Personal Lawn Mower Repairer 07/24/2018 10:07 AM yoko frias Advance Directives and Livin g Will 01/11/2011 4:18 PM * Full Code (Latest Code Status on File) Date Activated Date Inactivated Comments 12/28/2018 6:28 PM 01/01/2019 4:23 PM Question Answer Comments Does patient have capacity to make decision: Yes * Full Code Date Activated Date Inactivated Comments 07/23/2018 11:46 AM 07/25/2018 3:32 PM Question Answer Comments Does patient have capacity to make decision: Yes * Full Code Date Activated Date Inactivated Comments 07/23/2018 7:21 AM 07/23/2018 11:46 AM Question Answer Comments Does patient have capacity to make decision: Yes Healthcare Agents on File Name Relationship Healthcare Agent Relationshi p Communication Yoko Frias Spouse Health Care Agent Care Teams Barge Master Relationship Specialty Start Date End Date Inactive, Pcp External PCP - General 11/29/24
--- OUTSIDE RECORDS SUMMARY | 2024-12-13 01:21 | XMS_ITS | Encounter Summary ---
[place] [address] Care Team Providers Care Alligator Shear Operator Name Role Phone Yoko Dhaliwal MD Primary Care Provider Elias virk Encounter Details Date Type Department Care Team (Latest Contact Info) Description 09/15/2023 10:00 AM EDT - 09/15/2023 11:59 PM EDT Hospital Encounter Non-Invasive [place] [address] Discharge Disposition: Home Social History [...] BEDTIME 0 06/02/2018 fluticasone (FLONASE) 50 mcg/actuation [place], Suspension USE 2 SPRAYS NASALLY DAILY 3 04/27/2018 lisinopril (PRINIVIL;ZESTRIL) 20 mg Tablet Take 20 mg by mouth daily. CIS Free Text Med - Albuterol 2 Puff(s), Inh, Four times daily PRN 06/22/2006 documented as of this encounter Plan of Treatment Upcoming Encounters Date Type Department Care Team (Late st Contact Info) Description 03/08/2025 10:00 AM EDT Hospital Encounter Non-Invasive [place] [phone] Arrived documented as of this encounter Procedures Procedure Name Priority Date/Time Associated Diagnosis Comments PRO PM INTERROGATION REMOTE UP TO 90 DAYS Routine 07/19/2023 3:22 AM EDT documented in this encounter Results * Cardiac Device Check - Remote (07/19/2023 3:22 AM EDT) Anatomical Region Laterality Modality Other 07/19/2023 3:22 AM EDT Glory Cardona MD IMPLANTABLE CARDIAC DEVICE documented in this encounter Visit Diagnoses Not on filedocumented in this encounter Care Teams Alligator Shear Operator Relationship Specialty Start Date End Date Yoko Dhaliwal MD PCP - General Internal Medicine 06/25/18 11/21/24 documented as of this encounter
--- OUTSIDE RECORDS SUMMARY | 2024-12-13 01:21 | XMS_ITS | Encounter Summary ---
[place] [address] Care Team Providers Care Belt And Link Shop Supervisor Name Role Phone Yoko Dhaliwal MD Primary Care Provider Elias virk Encounter Details Date Type Department Care Team (Latest Contact Info) Description 12/14/2023 10:00 AM EST - 12/14/2023 11:59 PM EST Hospital Encounter Non-Invasive [place] [address] Discharge Disposition: Home Social History [...] BEDTIME 0 06/02/2018 fluticasone (FLONASE) 50 mcg/actuation [place], Suspension USE 2 SPRAYS NASALLY DAILY 3 04/27/2018 lisinopril (PRINIVIL;ZESTRIL) 20 mg Tablet Take 20 mg by mouth daily. CIS Free Text Med - Albuterol 2 Puff(s), Inh, Four times daily PRN 06/22/2006 documented as of this encounter Plan of Treatment Upcoming Encounters Date Type Department Care Team (Late st Contact Info) Description 03/08/2025 10:00 AM EDT Hospital Encounter Non-Invasive [place] [address] Arrived documented as of this encounter Procedures Procedure Name Priority Date/Time Associated Diagnosis Comments PRO PM INTERROGATION REMOTE UP TO 90 DAYS Routine 10/16/2023 4:07 AM EST documented in this encounter Results * Cardiac Device Check - Remote (10/16/2023 4:07 AM EST) Anatomical Region Laterality Modality Other 10/16/2023 4:07 AM EST Fabian Nieves MD IMPLANTABLE CARDIAC DEVICE documented in this encounter Visit Diagnoses Not on filedocumented in this encounter Care Teams Belt And Link Shop Supervisor Relationship Specialty Start Date End Date Yoko Dhaliwal MD PCP - General Internal Medicine 06/25/18 11/21/24 documented as of this encounter
--- OUTSIDE RECORDS SUMMARY | 2024-12-13 01:21 | XMS_ITS | Encounter Summary ---
[place] [address] Care Team Providers Care Analytics Developer Name Role Phone Yoko Dhaliwal MD Primary Care Provider Elias virk Encounter Details Date Type Department Care Team (Latest Contact Info) Description 03/13/2024 10:00 AM EDT - 03/13/2024 11:59 PM EDT Hospital Encounter Non[place] [address] Discharge Disposition: Home Social History [...] BEDTIME 0 06/02/2018 fluticasone (FLONASE) 50 mcg/actuation [place], Suspension USE 2 SPRAYS NASALLY DAILY 3 04/27/2018 lisinopril (PRINIVIL;ZESTRIL) 20 mg Tablet Take 20 mg by mouth daily. CIS Free Text Med - Albuterol 2 Puff(s), Inh, Four times daily PRN 06/22/2006 documented as of this encounter Plan of Treatment Upcoming Encounters Date Type Department Care Team (Late st Contact Info) Description 03/08/2025 10:00 AM EDT Hospital Encounter Non-[place] [phone] Arrived documented as of this encounter Procedures Procedure Name Priority Date/Time Associated Diagnosis Comments PRO PM INTERROGATION REMOTE UP TO 90 DAYS Routine 01/17/2024 3:31 AM EST CARDIAC DEVICE CHECK - REMOTE Routine 12/18/2023 3:42 AM EST documented in this encounter Results * Cardiac Device Check - Remote (01/17/2024 3:31 AM EST) Anatomical Region Laterality Modality Other 01/17/2024 3:31 AM EST Pk Darnell MD IMPLANTABLE CARDIAC DEVICE * Cardiac Device Check - Remote (12/18/2023 3:42 AM EST) Anatomical Region Laterality Modality Other 12/18/2023 3:42 AM EST Jennifer LYLES IMPLANTABLE CARDIAC DEVICE documented in this encounter Visit Diagnoses Not on filedocumented in this encounter Care Teams Analytics Developer Relationship Specialty Start Date End Date Yoko Dhaliwal MD PCP - General Internal Medicine 06/25/18 11/21/24 documented as of this encounter
--- OUTSIDE RECORDS SUMMARY | 2024-12-13 01:22 | XMS_ITS | Encounter Summary ---
[place] [address] Care Team Providers Care Ventilating Equipment Installer Name Role Phone Yoko Dhaliwal MD Primary Care Provider Elias virk Encounter Details Date Type Department Care Team (Late st Contact Info) Description 11/15/2019 External Results Cardiology at [address] [phone] Social History Tobacco Use Types Packs/Day Years [...] AM EDT Hospital Encounter [place] [address] Arrived documented as of this encounter Procedures Procedure Name Priority Date/Time Associated Diagnosis Comments EP DEVICE SCAN Routine 09/23/2019 documented in this encounter Results * Scan Doc: EP Device (09/23/2019) Anatomical Region Laterality Modality Other Historical Provider MD MEDIA MGR SCAN EX T ORDR/RSLT documented in this encounter Visit Diagnoses Not on filedocumented in this encounter Care Teams Ventilating Equipment Installer Relationship Specialty Start Date End Date Yoko Dhaliwal MD PCP - General Internal Medicine 06/25/18 11/21/24 documented as of this encounter
--- OUTSIDE RECORDS SUMMARY | 2024-12-13 01:22 | XMS_ITS | Encounter Summary ---
Author Organization [facility] [place] [address] Care Team Providers Care Channel Program Manager Name Role Phone Yoko Dhaliwal MD Primary Care Provider Elias virk Encounter Details Date Type Department Care Team (Latest Contact Info) Description 02/02/2021 2:38 PM EDT - 02/02/2021 11:59 PM EDT Hospital Encounter Non[place] [phone] Pk Darnell MD [facility] ELECTROPHYSI[place] [address] Atrial fibrillation, unspecified type Discharge Disposition: Home Social History Tobacco Use [...] BEDTIME 0 06/02/2018 fluticasone (FLONASE) 50 mcg/actuation [place], Suspension USE 2 SPRAYS NASALLY DAILY 3 [...] AM EDT Hospital Encounter Non-[place] [address] Arrived documented as of this encounter Procedures Procedure Name Priority Date/Time Associated Diagnosis Comments PCM INTERROGATION 3 MONTH Routine 02/02/2021 2:38 PM EDT Atrial fibrillation, unspecified type documented in this encounter Results * PCM INTERROGATION 3 MONTH (02/02/2021 2:38 PM EDT) Anatomical Region Laterality Modality Other Narrative 02/04/2021 2:20 PM EDT BTK DDD PPM remote reviewed. Normal device function. Pk Darnell MD [facility] Cardiac Electrophysiology 02/04/2021 2:18 PM Pk Darnell MD IMPLANTABLE CARDIAC DEVICE documented in this encounter Visit Diagnoses Diagnosis Atrial fibrillation, unspecified type documented in this encounter Care Teams Channel Program Manager Relationship Specialty Start Date End Date Yoko Dhaliwal MD PCP - General Internal Medicine 06/25/18 11/21/24 documented as of this encounter
--- OUTSIDE RECORDS SUMMARY | 2024-12-13 01:22 | XMS_ITS | Encounter Summary ---
[place] [address] Care Team Providers Care Environmental Intern Name Role Phone Yoko Dhaliwal MD Primary Care Provider Unavaila ble Encounter Details Date Type Department Care Team (Late st Contact Info) Description 03/13/2019 Telephone [place] [phone] Felicitas Alfaro Social History Tobacco Use Types Packs/Day Years [...] AM EDT Hospital Encounter Non[place] [address] Arrived documented as of this encounter Visit Diagnoses Not on filedocumented in this encounter Care Teams Environmental Intern Relationship Specialty Start Date End Date Yoko Dhaliwal MD PCP - General Internal Medicine 06/25/18 11/21/24 documented as of this encounter
--- OUTSIDE RECORDS SUMMARY | 2024-12-13 01:22 | XMS_ITS | Encounter Summary ---
Author Organization [facility] Address [facility] [place] [address] Care Team Providers Care Homogenizer Operator Name Role Phone Yoko Dhaliwal MD Primary Care Provider Elias virk Encounter Details Date Type Department Care Team (Late st Contact Info) Description 08/14/2020 Notes Only Cardiology at [address] [phone] Dave Vargas PA [facility] [place] [address] Social History Tobacco Use Types Packs/Day Years [...] on file documented as of this encounter Progress Notes * Dave Vargas PA - 08/14/2020 8:04 AM EDT Cardiac Electrophysiology Cardiac Implantable Electronic Device Remote Monitoring Interpretation Warren Noel [id number] Transmission Date: 08/14/2020 Device Type: Pacemaker Generator: Biotronik [id number] Gina ESPINO Implanted: 03/04/2019 Battery Status: OK, 80% Atrial lead status: Amplitude: 0.4 / 0.3 mV Impedance: 468 ? Threshold: Not measured Right ventricular lead status: Amplitude: 12.4 / 8.4 mV Impedance: 351 ? Threshold: Not measured Atrial Pacin% Ventricular Pacin% Alerts: RA sensing amplitude (daily mean) below limit (0.5mV) Physiologic Monitoring: Patient activity level 16% Impression: Patient is in and out of AF. Low amplitude readings over the last month have been concurrent with mode switched events. It is likely that these low amplitudes are being measured when there are no good p-waves to measure due to atrial fibrillation. Normally functioning device Dave Vargas PA-C 08/14/2020 Pager [phone] documented in this encounter Plan of Treatment Upcoming Encounters Date Type Department Care Team (Late st Contact Info) Description 03/08/2025 10:00 AM EDT Hospital Encounter Non[place] [phone] Arrived documented as of this encounter Visit Diagnoses Not on filedocumented in this encounter Care Teams Homogenizer Operator Relationship Specialty Start Date End Date Yoko Dhaliwal MD PCP - General Internal Medicine 06/25/18 11/21/24 documented as of this encounter
--- OUTSIDE RECORDS SUMMARY | 2024-12-13 01:22 | XMS_ITS | Encounter Summary ---
Author Organization [facility] Address [facility] [place] [address] Care Team Providers Care Disability Insurance Claim Examiner Name Role Phone Yoko Dhaliwal MD Primary Care Provider Elias virk Encounter Details Date Type Department Care Team (Late st Contact Info) Description 01/28/2021 Notes Only Cardiology at [address] [phone] Dave Mcnulty PA [facility] [place] [address] Social History Tobacco Use Types Packs/Day Years [...] of this encounter Progress Notes * Dave Mcnulty PA - 01/28/2021 8:12 AM EDT Cardiac Electrophysiology Cardiac Implantable Electronic Device Remote Monitoring Interpretation Transmission Date: 01/28/2021 Device Piano Mechanic Apprentice and Type: Biotronik Gina ESPINO #[id number] Battery Status: OK; 75% Atrial lead status: good Right ventricular lead status: good Pacin% Atrial pacing 89% Ventricular pacing Events/Arrhythmias noted since last reset : 01/27 NSVT, 11 beats, 2s @ [id number] Impression: Normally functioning dual lead Biotronik pacemaker LVEF 50% 01/01/2019 Taking metoprolol 50mg daily Provider: RAFAL Franco EP Consult attending physician: Jose J Darnell MD documented in this encounter Plan of Treatment Upcoming Encounters Date Type Department Care Team (Late st Contact Info) Description 03/08/2025 10:00 AM EDT Hospital Encounter Non-[place] [address] Arrived documented as of this encounter Visit Diagnoses Diagnosis Pacemaker - Biotronik dual lead pacemaker Cardiac pacemaker in situ documented in this encounter Care Teams Disability Insurance Claim Examiner Relationship Specialty Start Date End Date Yoko Dhaliwal MD PCP - General Internal Medicine 06/25/18 11/21/24 documented as of this encounter
--- OUTSIDE RECORDS SUMMARY | 2024-12-13 01:22 | XMS_ITS | Encounter Summary ---
Author Organization Counts Include [facility] At [facility] [address] Care Team Providers Care Business Operations Director Name Role Phone Yoko Dhaliwal MD Primary Care Provider Elias virk Encounter Details Date Type Department Care Team (Late st Contact Info) Description 03/02/2019 [place] [phone] Sumit Dunaway MD [facility] [place] [address] Social History Tobacco Use Types Packs/Day Years [...] encounter Miscellaneous Notes * Telephone Encounter - Sumit Dunaway - 03/02/2019 3:21 PM EDT Patient followed by Dr. Clay; history of flutter on metoprolol - has been having bradycardia so metoprolol halved, now having symptoms of lightheadedness and not feeling like his HR is getting up. In flutter with bradycardic ventricular response. Stable. Recommended stopping metoprolol - we have no beds right now but patient would prefer transfer here; we will accept if a bed becomes available. Sumit Dunaway MD Char Filter Operator documented in this encounter Plan of Treatment Upcoming Encounters Date Type Department Care Team (Late st Contact Info) Description 03/08/2025 10:00 AM EDT Hospital Encounter Non-Invasive [place] [address] Arrived documented as of this encounter Visit Diagnoses Not on filedocumented in this encounter Care Teams Business Operations Director Relationship Specialty Start Date End Date Yoko Dhaliwal MD PCP - General Internal Medicine 06/25/18 11/21/24 documented as of this encounter
--- OUTSIDE RECORDS SUMMARY | 2024-12-13 01:22 | XMS_ITS | Encounter Summary ---
[place] [address] Care Team Providers Care Frozen Meat Cutter Name Role Phone Yoko Dhaliwal MD Primary Care Provider Sona ble Encounter Details Date Type Department Care Team (Late st Contact Info) Description 03/02/2019 External Results [facility] [address] [place] [phone] Social History Tobacco Use Types Packs/Day Years [...] AM EDT Hospital Encounter Non-Invasive [place] [address] Arrived documented as of this encounter Procedures Procedure Name Priority Date/Time Associated Diagnosis Comments ECG SCAN Routine 03/02/2019 ECG SCAN Routine 03/02/2019 documented in this encounter Results * Scan Doc: ECG (03/02/2019) Historical Provider MD MEDIA MGR SCAN EX T ORDR/RSLT * Scan Doc: ECG (03/02/2019) Historical Provider MEDIA MGR SCAN EX T ORDR/RSLT documented in this encounter Visit Diagnoses Not on filedocumented in this encounter Care Teams Frozen Meat Cutter Relationship Specialty Start Date End Date Yoko Dhaliwal MD PCP - General Internal Medicine 06/25/18 11/21/24 documented as of this encounter
--- OUTSIDE RECORDS SUMMARY | 2024-12-13 01:22 | XMS_ITS | Encounter Summary ---
Author Organization [facility] [place] [address] Care Team Providers Care Machine Operator Picker Name Role Phone Yoko Dhaliwal MD Primary Care Provider Elias virk Encounter Details Date Type Department Care Team (Latest Contact Info) Description 06/08/2022 5:54 PM EDT - 06/08/2022 11:59 PM EDT Hospital Encounter Non-[place] [phone] Pk Darnell MD [facility] ELECTROP[place] [address] Atrial fibrillation, unspecified type Discharge Disposition: Home [...] BEDTIME 0 06/02/2018 fluticasone (FLONASE) 50 mcg/actuation [place], Suspension USE 2 SPRAYS NASALLY DAILY 3 [...] AM EDT Hospital Encounter Non-[place] [address] Arrived Pending Results Name Type Priority Associated Diagnoses Date /Time Cardiac Device Check - Remote Scheduled Implantable Cardiac Device Routine Atrial fibrillation, unspecified type 06/13/2022 3:28 PM EDT Scheduled Orders Name Type Priority Associated Diagnoses Order Schedule Cardiac Device Check - Remote Scheduled Implantable Cardiac Device Routine Atrial fibrillation, unspecified type 1 Occurrences starting 06/13/2022 until 06/13/2022 documented as of this encounter Visit Diagnoses Diagnosis Atrial fibrillation, unspecified type documented in this encounter Care Teams Machine Operator Picker Relationship Specialty Start Date End Date Yoko Dhaliwal MD PCP - General Internal Medicine 06/25/18 11/21/24 documented as of this encounter
--- OUTSIDE RECORDS SUMMARY | 2024-12-13 01:22 | XMS_ITS | Encounter Summary ---
Author Organization [facility] [place] [address] Care Team Providers Care Price Checker Name Role Phone Luis Dhaliwal MD Primary Care Provider Unavaila ble Reason for Visit * Auth/Cert Specialty Diagnoses / Procedures Referred By Contleena t Referred To Contact Diagnoses Chest pain CP Referral ID Status Reason Start Date Expiration Date Visits Re quested Visits Authorized [id number] 1 1 Encounter Details Date Type Department Care Team (Latest Contact Info) Description 12/28/2018 4:11 PM EST - 01/01/2019 2:22 PM [facility] Hospital Encounter Intermediate [place] [address] Gurvinder Melendez MD [facility] [place] [address] Francisco Javier Whitaker MD [facility] [place] [address] Chest pain, unspecified type Discharge Disposition: Home Social History [...] on file documented as of this encounter Last Filed Vital Signs Vital Sign Reading Time Taken Comments Blood Pressure 140/75 01/01/2019 12:21 PM EST Pulse 73 01/01/2019 4:50 AM EST Temperature 36.6 ??C (97.9 ??F) 01/01/2019 12:[address] Respiratory Rate 17 01/01/2019 12:21 PM EST Oxygen Saturation 99% 01/01/2019 12:21 PM EST Inhaled Oxygen Concentration - - Weight 88.5 kg (195 lb 1.7 oz) 01/01/2019 5:47 A M EST Height 177.8 cm (5' 10) 12/28/2018 4:22 PM EST Body Mass Index 27.99 12/28/2018 4:22 PM EST documented in this encounter Discharge Summaries * Chey Locke - 01/01/2019 12:22 PM EST Inpatient - Discharge Summary Patient Name: Bindu Perla Patient Age: 68 y.o. Birthdate: 1950 Admit date: 12/28/2018 Discharge date and time: 01/01/2019 Attending Physician: Francisco Javier Whitaker MD Code Status: Full Code ID: Bindu Perla is a 68 y.o. man with a history of hypertension, hyperlipidemia, gastric esophageal reflux disease, gastrointestinal bleed (thought to be secondary to inflammatory bowel disease),remote history of atrial flutter who presents in transfer from [facility] for further evaluation of unstable angina and new cardiomyopathy. Follow-up Recommendations for Providers: ?? Received DESx1 to proximal OM1 on 12/31/2018. Please ensure patient continues DAPT with ASA81 andclopidogrel for at least 1 year. ?? Up-titrate lisinopril and metoprolol as able to maximize cardiac benefits. New Medications: ASA81 Clopidogrel 75 mg daily Atorvastatin 80 mg daily SL NTG Medications Stopped: None New dosing of prior medications: None Discharge Diagnoses (Hospital Problems) and Secondary Diagnoses (Chronic Problems): Active Hospital Problems Diagnosis ??? Unstable angina ??? Angina pectoris CCS III (20 feet) Started in Fall of 12/2018: NST at OSH without ischemia 12/2018: TTE at OSH LVEF 45-50% with inferoseptal/inferior HK ??? Essential hypertension ??? HLD (hyperlipidemia) ??? Gastroesophageal reflux ??? GIB (gastrointestinal bleeding), history of Workup: negative EGD, colonoscopy, capsule endoscopy ??? Typical atrial flutter 6 hours on prior workup. No palpitations in a while Not on OAC per outpatient safety leader, awaiting cath ??? Chest pain Resolved Hospital Problems No resolved problems to display. Active Non-Hospital Problems Diagnosis ??? Foreign body in small intestine Procedures: Procedure(s) with comments: CARDIAC CATHETERIZATION - Procedure: Coronary Angiography +/- PCI History of Presentation (per 12/28/2018 Admission H&P): 68 M with hx as above presents on transfer from [facility] with chest pain that occurred at rest on Monday whilst reading a newspaper. Of note, he had an NST 12/24 which demonstrated an LVEF of 34%, without e/o ischemia. Of note, he had recently increased the norvasc to 10 and toprol to 50. He followedup with Dr. Bautista on 12/26, and discussed possibility of cardiac cath. Shortly after leaving the office, he developed SSCP elephant on chest, n/v, diaphoresis, and presyncope. It lasted until the patient was situated in their ED. EKG demonstrated LBBB without Sgarbossa's criteria, and serial enzymes were negative. An echo obtained demonstrated LVEF 45% and wmas in the inferior/inferoseptum. Because of this and continued chest pain not relieved with OMT, he was arranged for transfer for cardiac cath. ?? He has been having exertional angina since the Fall, and states he develops chest pain at about 20 feet of walking, goes away with rest in a minute. ?? It appears he had a GIB in April 2018, but with an unremarkable evaluation as above. He had a colonoscopy in 2014 which demonstrated diverticulosis and a rectal polyp. He reports no further bleeding since Summer 2017. Hospital Course: # Unstable Angina # Undifferentiated Cardiomyopathy # History of GI bleeding Aspirin was continued, but due to significant history of GI bleeding, plavix and heparin were held in the absence of chest pain. GI was consulted regarding safety for catheterization and felt given the absence of bleeding on recent workup (negative EGD and colonoscopy in summer 2017, stable hemoglobin while admitted) that benefits outweighed risks. Cardiac cath on 12/31/2018 revealed high grade proximal OM1 lesion for which DESx1 was placed and LVEDP 9 (rest of report below). The procedure went without complications. Post cath, patient was treated with goal directed therapy including ASA81, clopidogrel, atorvastatin, metoprolol, and lisinopril. TTE performed post cath showed LVEF 50% with mild concentric LVH, normal RVH, and no hemodynamically significant valvular disease (see report below). # Hypertension Home lisinopril and amlodipine were continued. ?? # GERD Home esomeprazole was substituted with pantoprazole while admitted. ?? # Reactive Airway Disease Home fluticasone was continued. Important Studies and Lab Data: Recent Labs 01/01/19 0450 12/31/18 0844 12/30/18 0423 WBC 7.8 7.0 7.7 HGB 12.9* 13.5* 14.0 HCT 39.0* 40.6 41.9 PLATELET 211 240 233 Recent Labs 01/01/19 0450 12/31/18 0844 12/30/18 0423 NA 144 143 140 K 3.7 3.9 4.0 CL 110* 108* 105 CO2 19* 21* 22 BUN 19 23* 21* CREATININE 0.84 0.89 1.03 No results for input(s): BILITOT, BILIDIR, AST, ALT, ALKPHOS in the last 168 hours. No results for input(s): INR, PTT in the last 168 hours. Pertinent radiology/diagnostic studies: 12/31/2018 Cardiac Catheterization: Formal report pending at time of discharge. Preliminary findings: high grade proximal OM1 lesion, moderate mid LAD lesion, otherwise minor/non-obstructive CAD with co-dominant circulation. LVEDP 9. Single stent to OM1 without difficulty. ?? The patient tolerated the procedures smoothly and was transferred from the cardiac catheterization lab to the next level of care in stable condition. No evident early complications. Loaded with clopidogrel on table. ?? Full report to follow. 01/01/2019 TTE: SUMMARY: ?? 1. The left ventricular chamber size is normal. Mild concentric left ventricular hypertrophy is observed. There are left ventricular segmental wall motion abnormalities present, as shown in the diagram below. Global left ventricular systolic function is mildly reduced. Ejection fraction is estimated to be 50%. 2. Right ventricular chamber size, wall thickness, and systolic function are within normal limits. 3. There is no hemodynamically significant valve disease. 4. See remainder of report for additional findings. Discharge Conditions/Prognosis: Stable; Good Functional and Cognitive Status: Upon discharge the patient is hemodynamically stable, fully ambulatory without requiring supplemental oxygen, afebrile and pain free. Discharge to: home Discharge Medications: Your Medications New Medications Dose Details aspirin 81 mg Tbec Take 1 tablet by mouth daily. 81 mg Quantity: 30 tablet Refills: 3 atorvastatin 80 mg Tab Commonly known as: LIPITOR Take 1 tablet by mouth every evening. 80 mg Quantity: 90 tablet Refills: 3 clopidogrel 75 mg Tab Commonly known as: PLAVIX Take 1 tablet by mouth daily. 75 mg Quantity: 90 tablet Refills: 3 nitroGLYcerin 0.4 mg Subl Commonly known as: NITROSTAT Place 1 tablet under the tongue every 5 minutes as needed for Chest pain. 0.4 mg Quantity: 90 tablet Refills: 12 Continued medications, unchanged Dose Details acetaminophen-codeine 300-30 mg Tab Commonly known as: TYLENOL #3 Take 2 tablets by mouth every 6 hours as needed for Pain. 2 tablet Quantity: 40 tablet Refills: 0 amLODIPine 10 mg Tab Commonly known as: NORVASC Take 10 mg by mouth daily. 10 mg Refills: 0 CIS FREE TEXT MED 2 Puff(s), Inh, Four times daily PRN Refills: 0 docusate sodium 100 mg Cap Commonly known as: COLACE TAKE ONE CAPSULE BY MOUTH TWICE A DAY Refills: 0 esomeprazole 40 mg Cpdr Commonly known as: NexIUM TAKE ONE CAPSULE BY MOUTH EVERY DAY Refills: 3 fluticasone 50 mcg/actuation Spsn Commonly known as: FLONASE USE 2 SPRAYS NASALLY DAILY Refills: 3 lisinopril 20 mg Tab Commonly known as: PRINIVIL;ZESTRIL Take 20 mg by mouth daily. 20 mg Refills: 0 metoprolol succinate 50 mg Tablet sr Commonly known as: TOPROL-XL TAKE ONE TABLET BY MOUTH AT BEDTIME Refills: 3 pediatric multivitamin with iron Chew Take 1 tablet by mouth daily. 1 tablet Refills: 0 polyethylene glycol 17 gram Pwpk Commonly known as: MIRALAX Take 17 g by mouth daily. 17 g Refills: 0 SENNA LAXATIVE 8.6 mg Tab TAKE 1 TABLET BY MOUTH AT BEDTIME Generic drug: senna Refills: 0 Updated Allergies/ADRs: Allergies Allergen Reactions ??? Influenza Virus Vaccine Bivalent Anaphylaxis Instructions Given to Patient at Discharge: Patient Instructions Instructions after leaving the hospital Why you were hospitalized: Chest pain. You were found to have a blockage in one of the blood vessels supplying blood to your heart and had 1 stent placed to open that blockage. Call your doctor or seek medical attention if you develop the following: chest pain, shortness of breath, feeling dizzy upon standing, passing out, diarrhea, constipation lasting longer than 2 days, fevers (temperature over 100.3), chills, abdominal pain, vomiting, difficulty or discomfort when urinating, bloody or black bowel movements, or any other acute or concerning symptom. Activity level: as tolerated Diet: low sodium (<2 grams daily) Shower/Bath: no restrictions Specific instructions related to your condition: New important heart medications: ?? Aspirin 81 mg daily (blood thinning medication known as an anti-platelet; important to continue to prevent stent from clotting off) ?? Clopidogrel 75 mg daily (blood thinning medication known as an anti- platelet; important to continue to prevent stent from clotting off) ?? Atorvastatin 80 mg daily (cholesterol lowering medication) ?? Nitroglycerin 0.4 mg (1 tablet) under the tongue every 5 minutes as needed if you have chest pain. If you use this medication, please seek medical attention. Follow-Up Appointments 01/09/2019 1:[address] Dhaliwal (PCP) Hospital follow up appointment (your original previously scheduled appointment with Dr. Dhaliwal at 10:40am on 01/09 was cancelled to allow for a longer appointment time at 1:20pm) Please ensure you see your safety leader (heart doctor), Dr. Bautista, within 4-6 weeks of discharge.Please call their office at [phone] to schedule an appointment. Your Inpatient Doctor(s) at [facility]: Francisco Javier Whitaker MD Attending Physician General Instructions None Provider Contact Information: Luis Dhaliwal MD [place] [address] / [place] [address] Discharge References/Attachments: Discharge References/Attachments None documented in this encounter Discharge Instructions * Patient Instructions* Chey Locke - 01/01/2019 7:45 AM EST Instructions after leaving the hospital Why you were hospitalized: Chest pain. You were found to have a blockage in one of the blood vessels supplying blood to your heart and had 1 stent placed to open that blockage. Call your doctor or seek medical attention if you develop the following: chest pain, shortness of breath, feeling dizzy upon standing, passing out, diarrhea, constipation lasting longer than 2 days, fevers (temperature over 100.3), chills, abdominal pain, vomiting, difficulty or discomfort when urinating, bloody or black bowel movements, or any other acute or concerning symptom. Activity level: as tolerated Diet: low sodium (<2 grams daily) Shower/Bath: no restrictions Specific instructions related to your condition: New important heart medications: ?? Aspirin 81 mg daily (blood thinning medication known as an anti-platelet; important to continue to prevent stent from clotting off) ?? Clopidogrel 75 mg daily (blood thinning medication known as an anti- platelet; important to continue to prevent stent from clotting off) ?? Atorvastatin 80 mg daily (cholesterol lowering medication) ?? Nitroglycerin 0.4 mg (1 tablet) under the tongue every 5 minutes as needed if you have chest pain. If you use this medication, please seek medical attention. Follow-Up Appointments 01/09/2019 1:[address] Dhaliwal (PCP) Hospital follow up appointment (your original previously scheduled appointment with Dr. Dhaliwal at 10:40am on 01/09 was cancelled to allow for a longer appointment time at 1:20pm) Please ensure you see your safety leader (heart doctor), Dr. Bautista, within 4-6 weeks of discharge.Please call their office at [phone] to schedule an appointment. Your Inpatient Doctor(s) at [facility]: Francisco Javier Whitaker MD Attending Physician documented in this encounter Medications at Time of Discharge Medication Sig Dispensed Refills Start Date End Date aspirin 81 mg Tablet, Delayed Release (E.C.) [...] BEDTIME 0 06/02/2018 fluticasone (FLONASE) 50 mcg/actuation Eleanor, Suspension USE 2 SPRAYS NASALLY DAILY 3 04/27/2018 lisinopril (PRINIVIL;ZESTRIL) 20 mg Tablet Take 20 mg by mouth daily. CIS Free Text Med - Albuterol 2 Puff(s), Inh, Four times daily PRN 06/22/2006 metoprolol succinate (TOPROL-XL) 50 mg Tablet Sustained Release 24 hr TAKE ONE TABLET BY MOUTH AT BEDTIME 3 04/27/2018 07/19/2023 documented as of this encounter Progress Notes * Jenna Smith, RN - 01/01/2019 1:58 PM EST Pt had a good day. A+O. Ambulated around unit independently. No complaints of chest pain or sob. 5 bt run of vta, team aware. Discharge teaching provided. Discontinued IVs and tele. No further questions at this time. DC to home with . * Chey Locke - 01/01/2019 5:21 AM EST Inpatient Cardiology Progress Note Patient Name: Bindu Perla Date of Admission: 12/28/2018 ( Hospital Day 1 day ) Service: S1 ID: Bindu Perla is a 68 y.o. male with a history of hypertension, hyperlipidemia, gastric esophageal reflux disease, gastrointestinal bleed (thought to be secondary to inflammatory bowel disease), remote history of atrial flutter who presents with unstable angina and new cardiomyopathy. Active Problems: Unstable angina Undifferentiated cardiomyopathy 24 hr events: NAEO Cath yday with DESx1 to high grade lesion of proximal OM1. Post cath check unremarkable. ROS: No CP, palpitations, LE swelling or pain, n/v, abd pain Telemetry: SR 66-105 Meds: Continuous Infusions: Scheduled Meds: ??? clopidogrel 75 mg Oral Daily ??? atorvastatin 80 mg Oral QPM ??? pantoprazole 40 mg Oral Daily ??? fluticasone 1 spray Each Nare Daily ??? lisinopril 20 mg Oral Daily ??? metoprolol succinate 50 mg Oral Daily ??? amLODIPine 10 mg Oral Daily ??? aspirin 81 mg Oral Daily ??? sodium chloride 0.9 % 5 mL Intravenous BID ??? enoxaparin 40 mg Subcutaneous Nightly PRN Meds:.calcium carbonate, sodium chloride 0.9 %, lidocaine, nitroGLYcerin, acetaminophen Physical Exam: Last value Range last 24 hrs Temperature Temp: 36.8 ??C (98.2 ??F) Temp: [36.3 ??C (97.3 ??F)-36.8 ??C (98.2 ??F)] Heart Rate Heart Rate: 73 Heart Rate: [73-104] Blood Pressure BP: 135/57 BP: (119-161)/(57-90) Respiratory Rate Resp: 16 Resp: [13-21] SpO2 SpO2: 90 % SpO2: [90 %-99 %] Intake/Output Summary (Last 24 hours) at 01/01/2019 05 Last data filed at 01/01/2019 0451 Gross per 24 hour Intake 600 ml Output 950 ml Net -350 ml cumulative I/O's since admission: +645 cc Patient Vitals for the past 168 hrs: Weight 12/31/18 0555 92.4 kg (203 lb 11.3 oz) 12/30/18 0646 92 kg (202 lb 13.2 oz) 12/29/18 0647 92.6 kg (204 lb 2.3 oz) 12/28/18 1622 93.3 kg (205 lb 11 oz) Admit wt: 93.3 kg (205 lbs) Gen: sitting up in bed in NAD; alert, oriented, interactive CV: RRR, S1S2, no m/r/g Resp: CTAB, no crackles Abd: nondistended, soft, NT, +BS, Ext: LLL prosthesis, WWP, 2+ DP pulses, no LE edema, R wrist cath site benign appearing, no bruising/hematoma Neuro: grossly intact Labs Recent Labs 01/01/19 0450 12/31/18 0844 12/30/18 0423 WBC 7.8 7.0 7.7 HGB 12.9* 13.5* 14.0 HCT 39.0* 40.6 41.9 PLATELET 211 240 233 Recent Labs 12/31/18 0844 12/30/18 0423 12/29/18 0643 NA 143 140 139 K 3.9 4.0 3.9 CL 108* 105 104 CO2 21* 22 20* BUN 23* 21* 25* CREATININE 0.89 1.03 0.90 Recent Labs 12/31/18 0844 12/30/18 0423 12/29/18 0643 CALCIUM 9.1 9.6 9.2 No results for input(s): INR, PT, PTT in the last 168 hours. Recent Labs 12/29/18 0643 12/29/18 0027 12/28/18 1730 TROPONINT <0.01 <0.01 <0.01 Imaging/Studies: No new in last 24 hours Cardiac Catheterization: Report pending DESx1 to high grade lesion of proximal OM1 TTE: pending Assessment: 68 y.o. man with a history of hypertension, hyperlipidemia, gastric esophageal reflux disease, gastrointestinal bleed (thought to be secondary to inflammatory bowel disease), remote history of atrial flutter who presents with unstable angina and new cardiomyopathy. Cardiac cath yday with DESx1. Will check TTE today for cardiac function s/p cath. Otherwise will make appropriate f/u, discharge with GDMT and work on discharge planning. Plan: # Unstable Angina # Undifferentiated Cardiomyopathy # CAD s/p ABELARDO x1 to high grade lesion of proximal OM1 (12/31) - Continue Aspirin - Hold Clopidogrel - Hold Heparin - Continue Atorvastatin - Continue Metoprolol succinate - Continue Lisinopril 20 mg - Cardiac Catheterization on 12/31 # Hypertension - Continue Lisinopril - Continue Amlodipine # GERD - Continue Pantoprazole # Reactive Airway Disease - Continue Fluticasone - Continue Albuterol PRN # Routine - DVT ppx: - GI ppx: Pantoprazole - Diet: Daily Healthy Menu Choices/Cardiac diet ([facility]-Diet) - Access: PIV - Consults: None - Dispo:Home today - Code status: Full Code Chey Locke MD, PGY-1 Cardiology S1, Pager [phone] Associated attestation - Francisco Javier Whitaker MD - 01/01/2019 12:32 PM EST Cardiology Attending Note I interviewed and examined the patient during comprehensive bedside rounds. I concur with the summary of interval events, active hospital-focused problem list and plan of care as described in the note below. I personally reviewed the medications, laboratory results, treatment decisions and updated the patient. Francisco Javier Whitaker MD, FACP, FACC Section of Cardiovascular Medicine [facility] [employer] or blood bank technician [facility] This patient meets or has met medical criteria to require an inpatient level of care, i.e. a minimum of two midnights in the hospital with multiple complex problems. * ChuckyChey Yaz - 12/31/2018 5:04 PM EST Post Cath Note S: No chest pain, dyspnea. Has chronic numbness of R hand due to carpal tunnel that feels no different than usual. No new weakness or tremor of R hand. Dressing clean and dry, no signs of infection, no bleeding from R radial access site. O: Most Recent Vitals: 12/31/18 1604 BP: 119/59 Pulse: Resp: 18 Temp: 36.7 ??C (98.1 ??F) SpO2: 98% General: Sitting up in bed in NAD. Ext: R radial access site covered with dressing c/d/i, warm, normal finger movement and sensation, 2+ radial pulse proximal and distal to cath site. A/P: s/p cath with benign appearing right radial access site. * Cynthia Stiles RN - 12/31/2018 3:52 PM EST 12/31/18 1500 Vascular Hematoma Assessment Extremity Right;Arm Hematoma present No Excessive bleeding No Hemostasis method (dressing intact, ++ pulse, wnl) Care assumed 6500-7702, patient a+O x4, denies cp, no difficulty voiding. * Wade Hernández RN - 12/31/2018 2:19 PM EST TR band off per protocol * Nicholas Gonzalez - 12/31/2018 7:42 AM EST Pre Cardiac Catheterization Note 68 y.o. male presents with chest pain at rest > 48 hours prior to arrival. None since. History of stable angina pectoris, uptitrating medications without effect on angina. Outpatient safety leader (Michele) desires cath Has been on ASA here- no up-front second anti-platelet. GI commented that reasonable to pursue cath(hx of GIB in 04/2018, none since), no issues with bleeding as they can foresee Denies planned upcoming surgeries. Denies recent or ongoing bleeding events. BP 132/80 (BP Location (NBP): Left arm) Pulse 77 Temp 36.6 ??C (97.9 ??F) (Oral) Resp 18 Ht177.8 cm (5' 10) Wt 92.4 kg (203 lb 11.3 oz) SpO2 97% BMI 29.23 kg/m?? Gen: Pleasant male in no apparent distress, able to lay flat Cor: rrr, s1/s2 of nl character and amplitude, no m/r/g. jvp not elevated Pulm: CTAB Ext: Bilateral Glynn's Test positive (both the radial and ulnar arteries alone provide ample circulation to the hand arcade). Femoral arteries are with adequate upstroke and without overlying evidence of infection. DP/PT ++ Neuro: sans focal deficit ASA: II Mallampati: II Last 3 wbc, hgb, hct plt Recent Labs 12/30/18 0423 12/29/18 0643 08/13/18 1442 WBC 7.7 8.6 7.1 HGB 14.0 13.8 11.0* HCT 41.9 42.7 36.7* PLATELET 233 224 286 Last 3 Lytes Recent Labs 12/30/18 0423 12/29/18 0643 07/25/18 0442 NA 140 139 141 K 4.0 3.9 3.9 CL 105 104 105 CO2 22 20* 24 BUN 21* 25* 19 CREATININE 1.03 0.90 0.97 Previous Catheterization: none The indications, expected benefits, and potential risks of heart catheterization were reviewed in detail with the patient. The potential for , heart attack, stroke, kidney failure, hemorrhage, allergic reaction, vascular complications and infection were reviewed in detail. The possibility of stenting and other percutaneous intervention, with associated risk, was reviewed. The possible need for emergent coronary artery bypass surgery was reviewed. Alternatives were discussed and the patient's questions were answered in full. Following this discussion, the patient consented to the procedure and signed a form attesting to this, which is in the chart. Plan/ Coronary Angio via RRA or RFA, per glue spreading machine operator preference No C/I to long-term DAPT Moderate Sedation OK Nicholas Gonzalez MD * Chey Locke - 12/31/2018 6:05 AM EST Inpatient Cardiology Progress Note Patient Name: Bindu Perla Date of Admission: 12/28/2018 ( Hospital Day 0 days ) Service: S1 ID: Bindu Perla is a 68 y.o. male with a history of hypertension, hyperlipidemia, gastric esophageal reflux disease, gastrointestinal bleed (thought to be secondary to inflammatory bowel disease), remote history of atrial flutter who presents with unstable angina and new cardiomyopathy. Active Problems: Unstable angina Undifferentiated cardiomyopathy 24 hr events: YEHUDA Feels well this morning. ROS: No palpitations, LE swelling or pain, n/v, abd pain Telemetry: SR 56-91, some PVCs/PACs Meds: Continuous Infusions: Scheduled Meds: ??? pantoprazole 40 mg Oral Daily ??? fluticasone 1 spray Each Nare Daily ??? lisinopril 20 mg Oral Daily ??? metoprolol succinate 50 mg Oral Daily ??? amLODIPine 10 mg Oral Daily ??? aspirin 81 mg Oral Daily ??? sodium chloride 0.9 % 5 mL Intravenous BID ??? enoxaparin 40 mg Subcutaneous Nightly PRN Meds:.sodium chloride 0.9 %, lidocaine, nitroGLYcerin, acetaminophen Physical Exam: Last value Range last 24 hrs Temperature Temp: 36.9 ??C (98.4 ??F) Temp: [36.6 ??C (97.9 ??F)-37 ??C (98.6 ??F)] Heart Rate Heart Rate: 70 Heart Rate: [70-87] Blood Pressure BP: 147/76 BP: (126-147)/(65-83) Respiratory Rate Resp: 18 Resp: [17-19] SpO2 SpO2: 97 % SpO2: [96 %-98 %] Intake/Output Summary (Last 24 hours) at 12/31/2018 0606 Last data filed at 12/31/2018 0555 Gross per 24 hour Intake 0 ml Output 200 ml Net -200 ml cumulative I/O's since admission: +645 cc Patient Vitals for the past 168 hrs: Weight 12/31/18 0555 92.4 kg (203 lb 11.3 oz) 12/30/18 0646 92 kg (202 lb 13.2 oz) 12/29/18 0647 92.6 kg (204 lb 2.3 oz) 12/28/18 1622 93.3 kg (205 lb 11 oz) Admit wt: 93.3 kg (205 lbs) Gen: sitting up in bed in NAD; alert, oriented, interactive CV: RRR, S1S2, no m/r/g Resp: CTAB, no crackles Abd: nondistended, soft, NT, +BS, Ext: LLL prosthesis, WWP, 2+ DP pulses, no LE edema Neuro: grossly intact Labs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 chronic low back pain. Pt has refused heating pad to low back. TR band site WNL. 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 Surveillance [continuous indirect monitoring]: hourly purposeful rounding, telemetry Patient-specific fall prevention interventions for sensory deficits provided, if applicable: n/a CPG GOAL OUTCOME EVALUATION: Goal: Individualization & Mutuality Outcome: Ongoing (Interventions Implemented as Appropriate) 01/01/19 0022 Individualization Patient Specific Goals I'd like to get to sleep!. Patient Specific Interventions Care clustered to minimizeawakenings. Goal: Fall Prevention-Safe Patient Handling Outcome: Ongoing (Interventions Implemented as Appropriate) 12/30/18202912/31/18 0255 12/31/18 1950 Daily Care Interventions Self-Care Promotion -- independence encouraged -- Pimentel Fall Risk History of Falling -- -- 25 Secondary Diagnosis -- -- 15 Ambulatory Aids -- -- 15 Intravenous Therapy/Heparin/Saline Lock -- -- 20 Gait/Transferring -- -- 10 Mental Status -- -- 0 Score -- -- 85 OTHER Pimentel Fall Risk -- -- High Restraint Interventions Safety Promotion/Fall Prevention -- -- -- Positioning Body Position -- -- independent Activity Activity Type -- -- ambulated in room Activity Assistance Provided -- -- independent Assistive Device Utilized none -- -- 01/01/19 0005 Daily Care Interventions Self-Care Promotion -- Pimentel Fall Risk History of Falling -- Secondary Diagnosis -- Ambulatory Aids -- Intravenous Therapy/Heparin/Saline Lock -- Gait/Transferring -- Mental Status -- Score -- OTHER Pimentel Fall Risk -- Restraint Interventions Safety Promotion/Fall Prevention safety round/check completed;fall prevention program maintained Positioning Body Position -- Activity Activity Type -- Activity Assistance Provided -- Assistive Device Utilized -- Goal: Infection Control Outcome: Ongoing (Interventions Implemented as Appropriate) 12/31/18 1950 01/01/19 0005 Safety Interventions Isolation Precautions -- standard precautions maintained Infection Prevention -- environmental surveillance performed;personal protective equipment utilized;rest/sleep promoted Coping Strategies Supportive Measures active listening utilized;decision-making supported;positive reinforcement provided;self-care encouraged;self-responsibility promoted;verbalization of feelings encouraged -- Goal: Discharge Needs Assessment Outcome: Ongoing (Interventions Implemented as Appropriate) 01/01/19 0022 Discharge Needs Assessment Concerns To Be Addressed denies needs/concerns at this time Readmission Within The Last 30 Days no previous admission in last 30 days Equipment Needed After Discharge prosthesis Current Discharge Risk chronically ill Discharge Disposition still a patient Current Health Anticipated Changes Related to Illness none Activity/Self Care Review of Systems Equipment Currently Used at Home prosthesis Goal: Interdisciplinary Rounds/Family Conf Outcome: Ongoing (Interventions Implemented as Appropriate) 12/29/18 0541 Interdisciplinary Rounds/Family Conf Participants nursing;patient;physician * Initial Assessments - Jennifer Inman RN - 12/31/2018 3:38 PM EST Office of Care Management Initial Assessment Jennifer Inman, TO reviewed record and discussed patient with Care Team. Source of Information: Cardiology Team, bedside nurse, chart review, interviewing patient and theirfamily. Introduced self/reviewed role; services accepted. Reason for Hospitalization: chest pain No past medical history on file. Hospitalizations Within the Past 30 Days: no Anticipated Length Of Stay (If known): 1-2 days Current Decision-Making Capacity: alert and oriented, able to make independent decisions. Advance Care Planning: on file. Spouse Luis is DPOA Current Coping/Education/Information Needs: feels updated on the current plan of care from the medical team Current Functional Ability: SBA, ambulated in the room Functional Status Prior to Admission: SBA, uses cane to ambulate, has artificial leg. Patient is independent with ADLs, driving, retired. Home Environment: lives in one level house with 2 steps to enter, no issues with stairs per patient. Social & Family Supports/Community Resources: lives with Spouse luis who identified herself asa caregiver, have several family members who live nearby. Behavioral Health History: denies Substance Use/Abuse: denies Other Pertinent/Service Specific Information: Health/Prescription Coverage: Primary Insurance: MEDICARE Secondary Insurance: FINANCIAL ASSISTANCE Prescription Coverage: Yes Preferred Pharmacy: [facility] [place] Other: Primary Care Provider: Luis Dhaliwal MD [phone] Patient/Caregiver Goals of Treatment: Return home when medically ready Potential Needs for Transition of Care: Rehab/SNF: no Home Health: no DME: owns cane and walker Dialysis: no Community Resources: n/a Transportation: car. family Other: Anticipated Barriers to Discharge/Special Considerations: none Assessment: patient is admitted to cardiology service for chest pain, anticipated to dc home when medically ready, no needs anticipated at discharge. Plan: A member of the Care Management team will continue to monitor progress, follow for continuity of care and assist with transition of care planning. Jennifer Inman RN Pager: [phone] * Brief Op Note - Reagan Medina MD - 12/31/2018 11:37 AM EST Preliminary Cardiac Catheterization Procedure Note: Patient Name: Bindu Perla : [id number] MR#: [id number] Case Date: 12/31/2018 Operators: * Reagan Medina MD - Primary * Jairo Drake MD - Fellow-Interventional Preoperative diagnosis: unstable angina Postoperative diagnosis: same Procedure(s) performed: coronary angiography, left heart cath, PCI with drug- eluting stent to OM1 Access: 6 SL R radial => TR band A time-out was conducted prior to the start of the procedure to verify the correct patient and procedure, procedure location, and all relevant critical information. Preliminary findings: high grade proximal OM1 lesion, moderate mid LAD lesion, otherwise minor/non-obstructive CAD with co-dominant circulation. LVEDP 9. Single stent to OM1 without difficulty. The patient tolerated the procedures smoothly and was transferred from the cardiac catheterization lab to the next level of care in stable condition. No evident early complications. Loaded with clopidogrel on table. Full report to follow. REAGAN MEDINA MD * Plan of Care - Calvin Dubois RN - 12/31/2018 3:08 AM EST Problem: Skin Integrity Impairment, Risk/Actual (Adult) Goal: Identify Related Risk Factors and Signs and Symptoms Related risk factors and signs and symptoms are identified upon initiation of Human Response Clinical Practice Guideline (CPG) Outcome: Ongoing (Interventions Implemented as Appropriate) 12/31/18254 Skin Integrity Impairment, Risk/Actual Skin Integrity Impairment, Risk/Actual: Related Risk Factors traumatic injury Signs and Symptoms (Skin Integrity Impairment) other (see comments) (BKA) Goal: Skin Integrity/Wound Healing Patient will demonstrate the desired outcomes by discharge/transition of care. Outcome: Ongoing (Interventions Implemented as Appropriate) 12/31/18254 Skin Integrity Impairment, Risk/Actual (Adult) Skin Integrity/Wound Healing making progress toward outcome Problem: Patient Care Overview Goal: Plan of Care Review Outcome: Ongoing (Interventions Implemented as Appropriate) 12/31/18254 Coping/Psychosocial Plan Of Care Reviewed With patient Plan of Care Review Progress progress toward functional goals as expected OUTCOME EVALUATION NOTE: OUTCOME SUMMARY: Pt had uneventful night. A&O. No c/o CP or dyspnea. Pt had c/o low back pain (chronic issue; relieved with rest and med; pt awaiting heating pad). Pt has baseline numbness/tingling R leg (L leg prosthesis BKA). See tele and v/s reports PLAN MOVING FORWARD: NPO for cath today INDIVIDUALIZED FALL PREVENTION INTERVENTIONS: Patient-specific fall risk factors per assessment: [current deficits]: IV sites, tele cords, BKA L leg Assistance [level of assistance required for transfers and ambulation]: SBA Supervision [direct monitoring required during toileting and ADLs]: Eyes/hands on, callbell within reach Surveillance [continuous indirect monitoring]: Telemetry, rounding Patient-specific fall prevention interventions for sensory deficits provided, if applicable: [X] Yes CPG GOAL OUTCOME EVALUATION: Goal: Fall Prevention-Safe Patient Handling Outcome: Ongoing (Interventions Implemented as Appropriate) 12/30/18202912/31/18 0255 Daily Care Interventions Self-Care Promotion -- independence encouraged Pimentel Fall Risk History of Falling 25 -- Secondary Diagnosis 15 -- Ambulatory Aids 15 -- Intravenous Therapy/Heparin/Saline Lock 20 -- Gait/Transferring 10 -- Mental Status 0 -- Score 85 -- OTHER Pimentel Fall Risk High -- Restraint Interventions Safety Promotion/Fall Prevention activity supervised;fall prevention program maintained;nonskid shoes/slippers when out of bed;safety round/check completed -- Positioning Body Position independent -- Activity Activity Type activity adjusted per tolerance -- Activity Assistance Provided assistance, stand-by -- Assistive Device Utilized none -- Goal: Infection Control Outcome: Ongoing (Interventions Implemented as Appropriate) 12/30/182029 Safety Interventions Isolation Precautions standard precautions maintained Infection Prevention environmental surveillance performed;rest/sleep promoted Coping Strategies Supportive Measures active listening utilized;self-care encouraged;positive reinforcement provided * Plan of Care - Amanda Vang RN - 12/30/2018 5:39 PM EST Problem: Patient Care Overview Goal: Plan of Care Review 12/30/18 9362 Coping/Psychosocial Plan Of Care Reviewed With patient OUTCOME EVALUATION NOTE: OUTCOME SUMMARY: Pt up ad prerna in room and in porras, tolerated well. Good appetite. Complained of some hip and back pain after sitting in bed during a visit by his and sister in law, ambulated around the unit and stated that his discomfort was relieved by walking. 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 Encouraged pt to take tylenol as ordered in order to maintain comfort. PLAN MOVING FORWARD: Possible cath tomorrow. INDIVIDUALIZED FALL PREVENTION INTERVENTIONS: Patient-specific fall risk factors per assessment: [current deficits]: BKA. Assistance [level of assistance required for transfers and ambulation]: Independent, steady on feet. Supervision [direct monitoring required during toileting and ADLs]: Hourly rounding. Surveillance [continuous indirect monitoring]: Telemetry. Patient-specific fall prevention interventions for sensory deficits provided, if applicable: [X] Yes CPG GOAL OUTCOME EVALUATION: * Plan of Care - Marina Brown RN - 12/30/2018 3:44 AM EST Problem: Patient Care Overview Goal: Plan of Care Review Outcome: Ongoing (Interventions Implemented as Appropriate) 12/29/18 0542 Coping/Psychosocial Plan Of Care Reviewed With patient Plan of Care Review Progress progress toward functional goals as expected OUTCOME EVALUATION NOTE: OUTCOME SUMMARY: A&Ox4. VSS. Pt was complaining of 6/10 lower back pain. PRN tylenol was given- had no effect. After attempts of repositioning and rest. Md was notified and 25mg Tramadol was ordered as a one-timedose. Medication worked with good effect. Pt was able to then get some sleep. Pt's HR went from NSRto A flutter and was elevated when going to the restroom in beginning of shift- MD was notified. HR dropped back to regular rate with rest but remained in a fib. Pt has been NPO since 1 am per orders. Clarified with night MD- pretty sure cardiac cath wont be until Monday- but will remain NPO until clarified by Day time team. No acute events. Will continue to monitor. PLAN MOVING FORWARD: NPO Cardiac cath 12/30 or 12/31 Pain management INDIVIDUALIZED FALL PREVENTION INTERVENTIONS: Patient-specific fall risk factors per assessment: [current deficits]: Prosthetic LLE, generalized weakness Assistance [level of assistance required for transfers and ambulation]: SBA Supervision [direct monitoring required during toileting and ADLs]: Eyes on Surveillance [continuous indirect monitoring]: Room near unit station, purposeful rounding, call renner in reach Patient-specific fall prevention interventions for sensory deficits provided, if applicable: [X] Yes CPG GOAL OUTCOME EVALUATION: * Plan of Care - Opal Cannon RN - 12/29/2018 5:44 AM EST Problem: Patient Care Overview Goal: Plan of Care Review Outcome: Revised Date Met: 12/29/18 12/29/18 0542 Coping/Psychosocial Plan Of Care Reviewed With patient Plan of Care Review Progress progress toward functional goals as expected OUTCOME EVALUATION NOTE: OUTCOME SUMMARY: A/OX4. Calm and cooperative. Appeared to rest comfortably between care. C/O 03/22 chronic low back pain. PRN Tylenol given X2 (see MAR). Good effect. VSS. SBA. Will cont to monitor and report w/ changes. 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 INDIVIDUALIZED FALL PREVENTION INTERVENTIONS: Patient-specific fall risk factors per assessment: [current deficits]: Lines/tubing. Unfamiliar environment. Assistance [level of assistance required for transfers and ambulation]: SBA. Supervision [direct monitoring required during toileting and ADLs]: Able to make needs known. Surveillance [continuous indirect monitoring]: Purposeful rounding, room near nurses' station. Patient-specific fall prevention interventions for sensory deficits provided, if applicable: [X] N/A CPG GOAL OUTCOME EVALUATION: documented in this encounter Plan of Treatment Upcoming Encounters Date Type Department Care Team (Late st Contact Info) Description 03/08/2025 10:00 AM EDT Hospital Encounter Non-[place] [address] Arrived documented as of this encounter Procedures Procedure Name Priority Date/Time Associated Diagnosis Comments ECHO COMPLETE W CONTRAST Routine 01/01/2019 12:07 PM EST Chest pain, unspecified type HEMOGRAM Routine 01/01/2019 4:50 AM EST DIFFERENTIAL, AUTOMATED Routine 01/01/20 4:50 AM EST CBC (WITH DIFF) Routine 01/01/2019 4:50 AM EST BASIC METABOLIC PANEL Routine 01/01/2019 4:50 AM EST EKG 12-LEAD Routine 12/31/2018 11:55 AM EST Chest pain, unspecified type CARDIAC CATHETERIZATION Routine 12/31/19 11:32 AM EST HEMOGRAM Routine 12/31/2018 8:44 AM EST DIFFERENTIAL, AUTOMATED Routine 12/31/19 8:44 AM EST CBC (WITH DIFF) Routine 12/31/2018 8:44 AM EST BASIC METABOLIC PANEL Routine 12/31/2018 8:44 AM EST EKG 12-LEAD STAT 12/30/2018 7:36 AM EST Chest pain, unspecified type HEMOGRAM Routine 12/30/2018 4:23 AM EST DIFFERENTIAL, AUTOMATED Routine 12/30/19 4:23 AM EST CBC (WITH DIFF) Routine 12/30/2018 4:23 AM EST BASIC METABOLIC PANEL Routine 12/30/2018 4:23 AM EST HEMOGRAM Routine 12/29/2018 6:43 AM EST DIFFERENTIAL, AUTOMATED Routine 12/29/19 6:43 AM EST CBC (WITH DIFF) Routine 12/29/2018 6:43 AM EST TROPONIN STAT 12/29/2018 6:43 AM EST BASIC METABOLIC PANEL Routine 12/29/2018 6:43 AM EST TROPONIN STAT 12/29/2018 12:27 AM EST TROPONIN STAT 12/28/2018 5:30 PM EST EKG 12-LEAD Routine 12/28/2018 4:47 PM EST Chest pain, unspecified type documented in this encounter Results * ECHO COMPLETE W CONTRAST (01/01/2019 12:07 PM EST) EF 50 HEARTLAB SYSTEM Anatomical Region Laterality Modality Other 01/01/2019 Narrative 01/01/2019 12:16 PM EST Procedure: ?Transthoracic Echocardiogram Patient: ?MINDA Guevara ? (Age): 1950(68y) Med Rec#: ? [id number] ?Sex: ?M ? [place] Loc: ? [facility] [place]Ht / Wt: ??178(cm)/89(kg) Pt. Loc: ?Adult Floor ? BSA: ?2.07 Study Date: ?? 01/01/2019 ?Pt. Type: Inpatient Tape: ? Referring: Francisco Javier Whitaker ([id number]) Referring: ROBERTA Reading: Bindu Aragon ([id number]) Superintendent Sales: Lluvia George BA, [facility] Diagnosis: *Chest pain, unspecified (R07.9) Rhythm: ? A-Flutter BP: ? 135/57 SUMMARY: 1. The left ventricular chamber size is normal. Mild concentric left ventricular hypertrophy is observed. There are left ventricular segmental wall motion abnormalities present, as shown in the diagram below. ??Global left ventricular systolic function is mildly reduced. Ejection fraction is estimated to be 50%. 2. Right ventricular chamber size, wall thickness, and systolic function are within normal limits. 3. There is no hemodynamically significant valve disease. 4. See remainder of report for additional findings. Findings ? : Study Quality: ? Technically limited Left Ventricle: ? The left ventricular chamber size is normal. ?Mild concentric left ventricular hypertrophy is observed. ?There is no evidence of LVOT obstruction. ?Global left ventricular systolic function is mildly reduced. Ejection fraction is estimated to be 50%. ?There are left ventricular segmental wall motion abnormalities present, as shown in the diagram below. ?Left sided filling pressure could not be assessed by Doppler. ?The ??mid inferior, mid inferoseptal, and ??apical inferior wall segments are hypokinetic (score 2). ?The ??basal inferior, and ??basal inferoseptal wall segments are akinetic (score 3). ?Overall wallmotion score index is ??1.44 Left Atrium: ? The left atrium is normal in size. (26 ml/m2 by volume index) Right Ventricle: ? Right ventricular chamber size, wall thickness, and systolic function are within normal limits. ?Pulmonary artery hypertension could not be assessed due to inadequate tricuspid regurgitation jet. Right Atrium: ? The right atrium appears normal. Aortic Valve: ? The aortic valve is tricuspid. ?The non coronary cusp of the aortic valve is thickened. ?There is aortic annular calcification. ?There is no evidence of aortic valve stenosis. ?There is no evidence of aortic regurgitation. Mitral Valve: ? The mitral valve appears normal in structure and function. ?There is trace mitral regurgitation present. Tricuspid Valve: ? The tricuspid valve appears normal in structure and function. ?There is trace tricuspid regurgitation present. Pulmonic Valve: ? The pulmonic valve appears normal in structure and function. Pericardium: ? The pericardium appears normal and there is no evidence of a pericardial effusion. Aorta: ? The aortic root is normal in size. Pulmonary Artery: ? The main pulmonary artery appears normal. Venous: ? The inferior vena cava appears normal in size. ?There is a greater than 50% respiratory change in the inferior vena cava dimension. Misc: ? Two-dimensional echo, spectral Doppler and color Doppler performed. ?Optison contrast (one 3 ml vial) was used to enhance endocardial definition. Excess contrast was discarded. Chambers 2D ?Value ?Units (Range) ? IVSd (2D) ? 1.3 ?cm ? LVPWd (2D) ?1.3 ?cm ? IVS:LVPW ratio (2D) 1 ?ratio ? RWT (2D) ?0.6 ?ratio ? RWT PW (2D) ? 0.6 ?ratio ? LVIDd (2D) ?4.4 ?cm ? LVIDs (2D) ?2.9 ?cm ? LVIDd (2D) index ?2.1 ?cm/m2 ? LVIDs (2D) index ?1.4 ?cm/m2 ? LV FS (2D) ?34 ? % ? EF Teichholz (2D) ?? 63 ? % ? Ao root diameter (2D3.3 ?cm (2.1 - 3.6) ? Ascending Ao ?2.9 ?cm (2 - 3.5) ? Volumes/Mass ?Value ?Units (Range) ? LA Area 4 CH ?16.2 ? cm2 (<21) ? RA AREA 4CH ? 15 ? cm2 ? LA ESV BP (MOD) inde25.5 ? ml/m2 ? LV ESV SP 4CH (MOD) 36.3 ? ml ? LV ESV SP 2CH (MOD) 58.1 ? ml ? LV EDV BP ? 90.9 ? ml ? LV ESV BP ? 48.8 ? ml ? LV EDV BP index ? 43.9 ? ml/m2 ? LV ESV BP index ? 23.6 ? ml/m2 ? BP EF (MOD) ? 46 ? % ? LV mass (2D) ?211.7 ?g ? LV mass (2D) index ??102.3 ?g/m2 ? Diastolic/Systolic Function ?Value ?Units (Range) ? MV E-wave Vmax ?0.5 ?m/sec ? LV E:e' septal ratio8.8 ?ratio ? Tricuspid Valve ?Value ?Units (Range) ? TAPSE ? 2.5 ?cm ? Wall Motion: Segment Name ?Rest ? Base-Anteroseptal ?? Normal ? Base-Anterior ? Normal ? Base-Anterolateral ??Normal ? Base-Posterolateral Normal ? Base-Inferior ? Akinetic ? Base-Inferoseptal ?? Akinetic ? Mid-Anteroseptal ?Normal ? Mid-Anterior ?Normal ? Mid-Anterolateral ?? Normal ? Mid-Posterolateral ??Normal ? Mid-Inferior ?Hypokinetic ? Mid-Inferoseptal ?Hypokinetic ? [place]-Septal ? Normal ? [place]-Anterior ? Normal ? [place]-Lateral ?Normal ? [place]-Inferior ? Hypokinetic ? [place]-Tip ?Normal ? This report has been electronically signed by: Bindu Aragon MD ? 01/01/2019 12:15:50 Images reviewed and interpretation verified [facility] Cardiac Ultrasound Laboratory Procedure Note Bindu Aragon MD - 01/01/2019 Procedure: Transthoracic Echocardiogram Patient: MINDA Guevara (Age): 1950(68y) Med Rec#: [id number] Sex: M [place] Loc[place] [facility] [place] Ht / Wt: 178(cm)/89(kg) Pt. Loc: Adult Floor BSA: 2.07 Study Date: 01/01/2019 Pt. Type: Inpatient Tape: Referring: Francisco Javier Whitaker ([id number]) Referring: ROBERTA Reading: Bindu Aragon ([id number]) Superintendent Sales: Lluvia George BA, [facility] Diagnosis: *Chest pain, unspecified (R07.9) Rhythm: A-Flutter BP: 135/57 SUMMARY: 1. The left ventricular chamber size is normal. Mild concentric left ventricular hypertrophy is observed. There are left ventricular segmental wall motion abnormalities present, as shown in the diagram below. Global left ventricular systolic function is mildly reduced. Ejection fraction is estimated to be 50%. 2. Right ventricular chamber size, wall thickness, and systolic function are within normal limits. 3. There is no hemodynamically significant valve disease. 4. See remainder of report for additional findings. Findings : Study Quality: Technically limited Left Ventricle: The left ventricular chamber size is normal. Mild concentric left ventricular hypertrophy is observed. There is no evidence of LVOT obstruction. Global left ventricular systolic function is mildly reduced. Ejection fraction is estimated to be 50%. There are left ventricular segmental wall motion abnormalities present, as shown in the diagram below. Left sided filling pressure could not be assessed by Doppler. The mid inferior, mid inferoseptal, and apical inferior wall segments are hypokinetic (score 2). The basal inferior, and basal inferoseptal wall segments are akinetic (score 3). Overall wallmotion score index is 1.44 Left Atrium: The left atrium is normal in size. (26 ml/m2 by volume index) Right Ventricle: Right ventricular chamber size, wall thickness, and systolic function are within normal limits. Pulmonary artery hypertension could not be assessed due to inadequate tricuspid regurgitation jet. Right Atrium: The right atrium appears normal. Aortic Valve: The aortic valve is tricuspid. The non coronary cusp of the aortic valve is thickened. There is aortic annular calcification. There is no evidence of aortic valve stenosis. There is no evidence of aortic regurgitation. Mitral Valve: The mitral valve appears normal in structure and function. There is trace mitral regurgitation present. Tricuspid Valve: The tricuspid valve appears normal in structure and function. There is trace tricuspid regurgitation present. Pulmonic Valve: The pulmonic valve appears normal in structure and function. Pericardium: The pericardium appears normal and there is no evidence of a pericardial effusion. Aorta: The aortic root is normal in size. Pulmonary Artery: The main pulmonary artery appears normal. Venous: The inferior vena cava appears normal in size. There is a greater than 50% respiratory change in the inferior vena cava dimension. Misc: Two-dimensional echo, spectral Doppler and color Doppler performed. Optison contrast (one 3 ml vial) was used to enhance endocardial definition. Excess contrast was discarded. Chambers 2D Value Units (Range) IVSd (2D) 1.3 cm LVPWd (2D) 1.3 cm IVS:LVPW ratio (2D) 1 ratio RWT (2D) 0.6 ratio RWT PW (2D) 0.6 ratio LVIDd (2D) 4.4 cm LVIDs (2D) 2.9 cm LVIDd (2D) index 2.1 cm/m2 LVIDs (2D) index 1.4 cm/m2 LV FS (2D) 34 % EF Teichholz (2D) 63 % Ao root diameter (2D3.3 cm (2.1 - 3.6) Ascending Ao 2.9 cm (2 - 3.5) Volumes/Mass Value Units (Range) LA Area 4 CH 16.2 cm2 (<21) RA AREA 4CH 15 cm2 LA ESV BP (MOD) inde25.5 ml/m2 LV ESV SP 4CH (MOD) 36.3 ml LV ESV SP 2CH (MOD) 58.1 ml LV EDV BP 90.9 ml LV ESV BP 48.8 ml LV EDV BP index 43.9 ml/m2 LV ESV BP index 23.6 ml/m2 BP EF (MOD) 46 % LV mass (2D) 211.7 g LV mass (2D) index 102.3 g/m2 Diastolic/Systolic Function Value Units (Range) MV E-wave Vmax 0.5 m/sec LV E:e' septal ratio8.8 ratio Tricuspid Valve Value Units (Range) TAPSE 2.5 cm Wall Motion: Segment Name Rest Base-Anteroseptal Normal Base-Anterior Normal Base-Anterolateral Normal Base-Posterolateral Normal Base-Inferior Akinetic Base-Inferoseptal Akinetic Mid-Anteroseptal Normal Mid-Anterior Normal Mid-Anterolateral Normal Mid-Posterolateral Normal Mid-Inferior Hypokinetic Mid-Inferoseptal Hypokinetic [place]-Septal Normal [place]-Anterior Normal [place]-Lateral Normal [place]-Inferior Hypokinetic [place]-Tip Normal This report has been electronically signed by: Bindu Aragon MD 01/01/2019 12:15:50 Images reviewed and interpretation verified [facility] Cardiac Ultrasound Laboratory Francisco Javier Whitaker MD ECHO ORDERABLES * Differential, Automated (01/01/2019 4:50 AM EST) Neutrophil % 66.0 % [facility] Neutrophil Absolute 5.17 1.70 - 6.10 x10(3)/[facility] Lymph % 22.8 % [facility] Lymphocytes Abs 1.8 0.9 - 3.2 x10(3)/[facility] Monocyte % 9.0 % [facility] Monocyte Abs 0.7 0.3 - 0.9 x10(3)/[facility] Eos % 1.2 % [facility] Eosinophils Abs 0.1 0.0 - 0.4 x10(3)/[facility] Basophil % 0.6 % [facility] Baso Absolute 0.0 0.0 - 0.1 x10(3)/[facility] Immature Gran % 0.40 % [facility] Comment: Immature granulocytes(IG's)percentage and absolute count will include metamyelocytes, myelocytes, and promyelocytes. Blood smears from CBCs yielding IG's will be scanned manually for concordance. If this scan disagrees with the automated IG or if promyelocytes are noted, a manual differential will be performed. Immature Gran Absolute 0.03 0.00 - 0.04 x10(3)/[facility] Blood specimen (specimen) 01/01/2019 4:50 AM EST 01/01/2019 4:57 AM EST Narrative Resulting Agency Comment Spec In Lab Nicholas Gonzalez MD HEMATOLOGY ORDERABLE S [facility] [place] [address] * (ABNORMAL) Hemogram (01/01/2019 4:50 AM EST) White Blood Cell 7.8 4.0 - 9.5 x10(3)/mc L [facility] Red Blood Cell 4.73 4.58 - 5.54 x10(6)/mc L [facility] Hemoglobin 12.9(L) 13.7 - 16.5 gm/dL [facility] Hematocrit 39.0(L) 40.5 - 48.5 % [facility] Mean Cell Volume 82.5(L) 82.9 - 93.1 fL [facility] Mean Cell Hemoglobin 27.3(L) 27.5 - 32.1 pg [facility] Mean Cell Hemoglobin Concentration 33.1 32.0 - 35.7 gm/dL [facility] Platelet 211 145 - 357 x10(3)/mc L [facility] RDW Standard Deviation 41.1 36.0 - 45.0 [facility] RDW coefficient of variation 13.8 11.4 - 13.8 % [facility] Mean Platelet Volume 10.7 7.6 - 12.9 fL [facility] NRBC% auto 0.0 % [facility] NRBC Absolute 0.000 0.000 - 0.000 x10(3)/mc L [facility] Blood specimen (specimen) 01/01/2019 4:50 AM EST 01/01/2019 4:57 AM EST Narrative Resulting Agency Comment Spec In Lab Nicholas Gonzalez MD HEMATOLOGY ORDERABLE S [facility] [place] [address] * (ABNORMAL) Basic Metabolic Panel (non-fasting) (01/01/2019 4:50 AM EST) Glucose 112 65 - 199 mg/dL [facility] Comment:Diabetes: >=200 mg/d L plus symptoms Blood Urea Nitrogen 19 10 - 20 mg/dL [facility] Creatinine 0.84 0.80 - 1.50 mg/dL [facility] Sodium 144 135 - 145 mmol/L [facility] Potassium 3.7 3.5 - 5.0 mmol/L [facility] Comment: Please note: ??Patients with WBC >100,000 may have falsely elevated Potassium levels. ??For accurate Potassium quantification in these patients send serum separator tube (gold top) for subsequent determinations. ??Contact the Clinical Chemistry Laboratory if there are any questions. Chloride 110(H) 98 - 107 mmol/L [facility] Carbon Dioxide 19(L) 22 - 31 mmol/L [facility] Anion Gap 15 5 - 15 mmol/L [facility] Calcium 9.3 8.5 - 10.5 mg/dL [facility] Est Glomerular Filtration Rate 89 >=60 mL/min/1. 73 m?? [facility] Comment: The eGFR was calculated using the CKD-EPI equation. As with all creatinine based estimates of kidney function, eGFR values calculated with the CKD-EPI equation are not accurate in patients with acute kidney failure, extremes of body mass or the acutely ill. [email or web address] eGFR 103 >=60 mL/min/1. 73 m?? [facility] Comment: The eGFR was calculated using the CKD-EPI equation. As with all creatinine based estimates of kidney function, eGFR values calculated with the CKD-EPI equation are not accurate in patients with acute kidney failure, extremes of body mass or the acutely ill. [email or web address] Blood specimen (specimen) 01/01/2019 4:50 AM EST 01/01/2019 4:57 AM EST Narrative Resulting Agency Comment Spec In Lab Gurvinder Melendez MD CHEMISTRY ORDERABLES Performing Organization Address [facility] Co de Phone Number [facility] [place] [address] * EKG 12 Lead (12/31/2018 11:55 AM EST) Ventricular rate 75 BPM MUSE SYSTEM Atrial Rate 75 BPM MUSE SYSTEM P-R Interval 198 ms MUSE SYSTEM QRS Duration 142 ms MUSE SYSTEM Q-T Interval 442 ms MUSE SYSTEM QTC Calculated (Bezet) 493 ms MUSE SYSTEM Calculated P Hiram 58 degrees MUSE SYSTEM Calculated R Hiram -94 degrees MUSE SYSTEM Calculated T Hiram 89 degrees MUSE SYSTEM INTERPRETATION Normal sinus rhythm Non-specific intra-ventricu lar conduction block Anterolateral infarct (cited on or before 28-DEC-2018) Abnormal ECG When compared with ECG of 30-DEC-2018 07:36, No significant change was found Confirmed by MD CARLOTA, ABDELRAHMAN ([id number]) on 12/31/2018 6:07:14 PM MUSE SYSTEM 12/31/2018 11:5 5 AM EST 12/31/2018 6:07 PM EST Reagan Medina MD ECG ORDERABLES Performing Organization Address [facility] Co de Phone Number MUSE SYSTEM * CARDIAC CATHETERIZATION (12/31/2018 11:32 AM EST) Anatomical Region Laterality Modality Other Narrative 01/10/2019 4:09 PM EST ?[facility] ? Cardiac Catheterization/Intervention Report ? Patient Name: MINDA, JASON. ? Procedure Date: 12/31/2018 ? A #: [id number] ? Primary Physician: Reagan Medina ? Case #: [id number] ? File Name: [id number] ? Catheterization Order Number: [id number] ? [facility] ? Final Report [place], [place] ? Patient Name: ? JASON. MINDA ? ID#: ?[id number] ? : ?1950 ? Procedure Date: ? December 31, 2018 ?Case #: ? [id number] ? Room: ? 5 ? Case Physician: ? Reagan Medina M.D. ? Start: ?10:10 ?Fellow: ? Jairo Drake M.D. ?Admission: ??12/28/2018 ? Discharge: ??01/01/2019 ? Referring Physician: ??Marcus Bautista M.D. ? Procedures: ?* Coronary Angiography ?* Left Heart Catheterization ?* Coronary Stent Insertion ? History ?BINDU PERLA is a 68 year old man. The patient's smoking status is ?Former. The patient also has a history of atrial fibrillation/atrial ?flutter. Prior to the initiation of this procedure, the patient was ?designated as ASA Class III. The CSHA clinical frailty scale is 4: ?Vulnerable. ? Diagnostic Tests: ?Prior Coronary Angiography: ? LV ejection fraction within 6 months is 45%. ?Electrocardiography: ? EKG was assessed by ECG. EKG was Abnormal. EKG showed other ? abnormality. ?Medications Prior to Procedure: ? ASA, Beta Sis and Calcium Channel Blocking Agent. ? Indications for Diagnostic Cath: ?The priority of the diagnostic procedure was Urgent. 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 Chest pain symptom assessment was: ?Atypical Angina. ? Technique: ?A 6 SLFr sheath was inserted in the right radial artery utilizing the ?Seldinger technique. The right coronary artery was injected utilizing a ?6Fr JR 4 catheter. A 6Fr JL 3.5 catheter was used to inject the left ?coronary artery. Left ventricular pressure was performed with a 6Fr JR 4 ?catheter. Coronary stent insertion was performed and the equipment ?utilized will be described in the intervention summary section. 5,000 ?units of heparin were administered. A total of 200cc of Omnipaque were ?opened, 135cc of Omnipaque were administered and 65cc of Omnipaque were ?wasted. Radiation: Fluoro time was 13.8 minutes, dose area product was ?77,241 mGYcm2 and air kerma was 1,935 mGY. See the case log for ?additional details. ?The patient received the following medications prior to and during the ?procedure: ? Low Molecular Weight Heparin, Unfractionated Heparin and ? Clopidogrel. ? Hemodynamics: ?Left Heart Pressures ? Resting: ? Syst Diast ? EDP ?a ?v ? m ?Ao 136 ?? 68 ?96 ?LV 128 ? 9 ? Coronary Angiography: ?Dominance: Co-dominant ?Left Main ? The left main was normal, free of disease. ?Left Anterior Descending ? There was a 40% long segmental stenosis of the mid segment of the ? left anterior descending artery (LAD). ??This lesion involved ? bifurcation. ?Left Circumflex ? There was mild diffuse (<=25% stenosis) disease of the ostial ? segment of the left circumflex artery (LCX). ? There was an 85% eccentric single discrete stenosis of the proximal ? segment of the first obtuse marginal branch (OM1) of the LCX. ??The ? OM1 was moderate in size. ??The mid 1 segment of the OM1 had mild ? diffuse (<=25% stenosis) disease. ??There also was a 40% long ? segmental stenosis of the mid 2 segment of the OM1. ?Right Coronary Artery ? There was mild diffuse (<=25% stenosis) disease of the proximal ? segment of the right coronary artery (RCA). ??The mid segment of the ? RCA had mild diffuse (<=25% stenosis) disease and it was also ? tortuous. ? Indication for Intervention: ?Coronary intervention was indicated for treatment of unstable angina. The ?priority for the procedure was Urgent. The NCDR indication for the ?procedure was NSTE-ACS. LVEF within one week was 45%. Syntax Score was ?Low. ? Intervention Summary: ?First Obtuse Marginal Branch of the LCX ? Proximal 85% ? Stent insertion was performed on the 85% stenosis in the ? proximal segment of the OM1. This was a de meron lesion. ? According to the ACC/AHA classification system, this lesion ? was a type B1 moderate risk lesion. Primary prevention of ? restenosis was the indication for stent insertion. This was ? the culprit lesion. A guidewire was placed across this lesion. ? Vessel flow pre intervention was ALLIE 3. Lesion length was ? 10mm. ? Stent insertion was accomplished through a 6 Fr. EBU 3.5 ? guide. ??The lesion was predilated with a 2.00mm EUPHORA 15 MM ? balloon with a maximum inflation pressure of 8 atmospheres. ??A ? premounted 2.50 x 18 mm Resolute THA ??(ABELARDO) was deployed with ? a maximum inflation pressure of 14 atmospheres. ??Following ? stent deployment, the lesion was dilated using a 2.50mm NC ? EUPHORA 08 MM balloon with a maximum inflation pressure of 18 ? atmospheres. ? The final outcome was defined as successful. There was no ? residual stenosis following this intervention. The final ALLIE ? flow was 3. ? Vascular Access: ?Vascular Access Management: ? Mechanical Compression of the right radial artery access site was ? performed. ? Dual Antiplatelet (DAPT) Recommendations: ?Drug eluting stent (ABELARDO) inserted. ?P2Y12 Loading dose Clopidogrel 600 mg PO given in lab. ?Recommend continuing clopidogrel 75 mg PO daily for 12 months. ??Recommend ?continuing aspirin 81 mg unless intolerant. ? Conclusions: ?* One vessel coronary artery disease (LCX) ?* Successful stent insertion of the proximal OM1 lesion ?* Recommend continuing clopidogrel 75 mg PO daily for 12 months (see DAPT ?Recommendations above for more information.) ? Complications/Events: ?The patient had no complications during these procedures. ?The attending physician was present for the entire procedure. ?Dr. Reagan Medina M.D. was present during the moderate sedation ?intraservice time as documented by the sedation nurse. ??Case time = 01:16. ?Dr. Reagan Medina M.D. performed the coronary angiography, left heart ?catheterization and stent insertion-coronary. ? Reagan Medina M.D. ? Electronically Signed by: Reagan Medina M.D. ? Report Finalized: 12/31/2018 ??11:52 ? Report Last Ammended: 10/24/2019 ??13:22 ? Procedure Note Reagan Medina MD - 10/24/2019 [facility] Cardiac Catheterization/Intervention Report Patient Name: BINDU PERLA Procedure Date: 12/31/2018 A #: [id number] Primary Physician: Reagan Medina Case #: [id number] File Name: [id number] Catheterization Order Number: [id number] [facility] FinalReport [place], [place] Patient Name: BINDU PERLA ID#:[id number] :1950 Procedure Date: December 31, 2018 Case #: [id number] Room: 5 Case Physician: Reagan Medina M.D. Start: 10:10 Fellow: Jairo Drake M.D. Admission:12/28/2018 Discharge:01/01/2019 Referring Physician: Marcus Bautista M.D. Procedures: * Coronary Angiography * Left Heart Catheterization * Coronary Stent Insertion History BINDU PERLA is a 68 year old man. The patient's smoking statusis Former. The patient also has a history of atrial fibrillation/atrial flutter. Prior to the initiation of this procedure, the patient was designated as ASA Class III. The [facility] clinical frailty scale is 4: Vulnerable. Diagnostic Tests: Prior Coronary Angiography: LV ejection fraction within 6 months is 45%. Electrocardiography: EKG was assessed by ECG. EKG was Abnormal. EKG showed other abnormality. Medications Prior to Procedure: ASA, Beta Sis and Calcium Channel Blocking Agent. Indications for Diagnostic Cath: The priority of the diagnostic procedure was Urgent. 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 Chest pain symptom assessment was: Atypical Angina. Technique: A 6 SLFr sheath was inserted in the right radial artery utilizingthe Seldinger technique. The right coronary artery was injectedutilizing a 6Fr JR 4 catheter. A 6Fr JL 3.5 catheter was used to inject the left coronary artery. Left ventricular pressure was performed with a 6FrJR 4 catheter. Coronary stent insertion was performed and the equipment utilized will be described in the intervention summary section.5,000 units of heparin were administered. A total of 200cc of Omnipaquewere opened, 135cc of Omnipaque were administered and 65cc of Omnipaquewere wasted. Radiation: Fluoro time was 13.8 minutes, dose area productwas 77,241 mGYcm2 and air kerma was 1,935 mGY. See the case log for additional details. The patient received the following medications prior to and duringthe procedure: Low Molecular Weight Heparin, Unfractionated Heparin and Clopidogrel. Hemodynamics: Left Heart Pressures Resting: Syst Diast EDP a v m Ao 136 68 96 LV 128 9 Coronary Angiography: Dominance: Co-dominant Left Main The left main was normal, free of disease. Left Anterior Descending There was a 40% long segmental stenosis of the mid segment ofthe left anterior descending artery (LAD). This lesion involved bifurcation. Left Circumflex There was mild diffuse (<=25% stenosis) disease of the ostial segment of the left circumflex artery (LCX). There was an 85% eccentric single discrete stenosis of theproximal segment of the first obtuse marginal branch (OM1) of the LCX.The OM1 was moderate in size. The mid 1 segment of the OM1 hadmild diffuse (<=25% stenosis) disease. There also was a 40% long segmental stenosis of the mid 2 segment of the OM1. Right Coronary Artery There was mild diffuse (<=25% stenosis) disease of the proximal segment of the right coronary artery (RCA). The mid segment ofthe RCA had mild diffuse (<=25% stenosis) disease and it was also tortuous. Indication for Intervention: Coronary intervention was indicated for treatment of unstableangina. The priority for the procedure was Urgent. The NCDR indication for the procedure was NSTE-ACS. LVEF within one week was 45%. Syntax Scorewas Low. Intervention Summary: First Obtuse Marginal Branch of the LCX Proximal 85% Stent insertion was performed on the 85% stenosis in the proximal segment of the OM1. This was a de meron lesion. According to the ACC/AHA classification system, thislesion was a type B1 moderate risk lesion. Primary prevention of restenosis was the indication for stent insertion. Thiswas the culprit lesion. A guidewire was placed across thislesion. Vessel flow pre intervention was ALLIE 3. Lesion lengthwas 10mm. Stent insertion was accomplished through a 6 Fr. EBU 3.5 guide. The lesion was predilated with a 2.00mm [id number] MM balloon with a maximum inflation pressure of 8atmospheres. A premounted 2.50 x 18 mm Resolute THA (ABELARDO) was deployedwith a maximum inflation pressure of 14 atmospheres.Following stent deployment, the lesion was dilated using a 2.50mmNC EUPHORA 08 MM balloon with a maximum inflation pressureof 18 atmospheres. The final outcome was defined as successful. There was no residual stenosis following this intervention. The finalTIMI flow was 3. Vascular Access: Vascular Access Management: Mechanical Compression of the right radial artery access sitewas performed. Dual Antiplatelet (DAPT) Recommendations: Drug eluting stent (ABELARDO) inserted. P2Y12 Loading dose Clopidogrel 600 mg PO given in lab. Recommend continuing clopidogrel 75 mg PO daily for 12 months.Recommend continuing aspirin 81 mg unless intolerant. Conclusions: * One vessel coronary artery disease (LCX) * Successful stent insertion of the proximal OM1 lesion * Recommend continuing clopidogrel 75 mg PO daily for 12 months (seeDAPT Recommendations above for more information.) Complications/Events: The patient had no complications during these procedures. The attending physician was present for the entire procedure. Dr. Reagan Medina M.D. was present during the moderate sedation intraservice time as documented by the sedation nurse. Case time =01:16. Dr. Reagan Medina M.D. performed the coronary angiography, left heart catheterization and stent insertion-coronary. Reagan Medina M.D. Electronically Signed by: Reagan Medina M.D. Report Finalized: 12/31/2018 11:52 Report Last Ammended: 10/24/2019 13:22 Francisco Javier Whitaker MD CARDIAC CATH ORDER ADRIEN * Differential, Automated (12/31/2018 8:44 AM EST) Neutrophil % 67.7 % [facility] Neutrophil Absolute 4.76 1.70 - 6.10 x10(3)/[facility] Lymph % 22.2 % [facility] Lymphocytes Abs 1.6 0.9 - 3.2 x10(3)/[facility] Monocyte % 8.0 % [facility] Monocyte Abs 0.6 0.3 - 0.9 x10(3)/[facility] Eos % 1.0 % [facility] Eosinophils Abs 0.1 0.0 - 0.4 x10(3)/[facility] Basophil % 0.7 % [facility] Baso Absolute 0.0 0.0 - 0.1 x10(3)/[facility] Immature Gran % 0.40 % [facility] Comment: Immature granulocytes(IG's)percentage and absolute count will include metamyelocytes, myelocytes, and promyelocytes. Blood smears from CBCs yielding IG's will be scanned manually for concordance. If this scan disagrees with the automated IG or if promyelocytes are noted, a manual differential will be performed. Immature Gran Absolute 0.03 0.00 - 0.04 x10(3)/[facility] Blood specimen (specimen) 12/31/2018 8:44 AM EST 12/31/2018 9:00 AM EST Narrative Resulting Agency Comment Spec In Lab Nicholas Gonzalez MD HEMATOLOGY ORDERABLE S Performing Organization Address City/State/[facility] Co de Phone Number [facility] [place] [address] * (ABNORMAL) Hemogram (12/31/2018 8:44 AM EST) White Blood Cell 7.0 4.0 - 9.5 x10(3)/mc L [facility] Red Blood Cell 4.95 4.58 - 5.54 x10(6)/mc L [facility] Hemoglobin 13.5(L) 13.7 - 16.5 gm/dL [facility] Hematocrit 40.6 40.5 - 48.5 % [facility] Mean Cell Volume 82.0(L) 82.9 - 93.1 fL [facility] Mean Cell Hemoglobin 27.3(L) 27.5 - 32.1 pg [facility] Mean Cell Hemoglobin Concentration 33.3 32.0 - 35.7 gm/dL [facility] Platelet 240 145 - 357 x10(3)/mc L [facility] RDW Standard Deviation 40.7 36.0 - 45.0 fL [facility] RDW coefficient of variation 13.8 11.4 - 13.8 % [facility] Mean Platelet Volume 11.0 7.6 - 12.9 fL [facility] NRBC% auto 0.0 % [facility] NRBC Absolute 0.000 0.000 - 0.000 x10(3)/mc L [facility] Blood specimen (specimen) 12/31/2018 8:44 AM EST 12/31/2018 9:00 AM EST Narrative Resulting Agency Comment Spec In Lab Nicholas Gonzalez MD HEMATOLOGY ORDERABLE S [facility] [place] [address] * (ABNORMAL) Basic Metabolic Panel (non-fasting) (12/31/2018 8:44 AM EST) Glucose 127 65 - 199 mg/dL [facility] Comment:Diabetes: >=200 mg/d L plus symptoms Blood Urea Nitrogen 23(H) 10 - 20 mg/dL [facility] Creatinine 0.89 0.80 - 1.50 mg/dL [facility] Sodium 143 135 - 145 mmol/L [facility] Potassium 3.9 3.5 - 5.0 mmol/L [facility] Comment: Please note: ??Patients with WBC >100,000 may have falsely elevated Potassium levels. ??For accurate Potassium quantification in these patients send serum separator tube (gold top) for subsequent determinations. ??Contact the Clinical Chemistry Laboratory if there are any questions. Chloride 108(H) 98 - 107 mmol/L [facility] Carbon Dioxide 21(L) 22 - 31 mmol/L [facility] Anion Gap 14 5 - 15 mmol/L [facility] Calcium 9.1 8.5 - 10.5 mg/dL [facility] Est Glomerular Filtration Rate 87 >=60 mL/min/1. 73 m?? [facility] Comment: The eGFR was calculated using the CKD-EPI equation. As with all creatinine based estimates of kidney function, eGFR values calculated with the CKD-EPI equation are not accurate in patients with acute kidney failure, extremes of body mass or the acutely ill. [email or web address] eGFR 100 >=60 mL/min/1. 73 m?? [facility] Comment: The eGFR was calculated using the CKD-EPI equation. As with all creatinine based estimates of kidney function, eGFR values calculated with the CKD-EPI equation are not accurate in patients with acute kidney failure, extremes of body mass or the acutely ill. [email or web address] Blood specimen (specimen) 12/31/2018 8:44 AM EST 12/31/2018 9:00 AM EST Narrative Resulting Agency Comment Spec In Lab Gurvinder Melendez MD CHEMISTRY ORDERABLES Performing Organization Address City/State/[facility] Co de Phone Number [facility] [place] [address] * EKG 12 Lead (12/30/2018 7:36 AM EST) Ventricular rate 83 BPM MUSE SYSTEM Atrial Rate 83 BPM MUSE SYSTEM P-R Interval 208 ms MUSE SYSTEM QRS Duration 134 ms MUSE SYSTEM Q-T Interval 420 ms MUSE SYSTEM QTC Calculated (Bezet) 493 ms MUSE SYSTEM Calculated P Hiram 65 degrees MUSE SYSTEM Calculated R Hiram -101 degrees MUSE SYSTEM Calculated T Hiram 79 degrees MUSE SYSTEM INTERPRETATION Sinus rhythm with PVC Possible Left atrial enlargement Non-specific intra-ventricu lar conduction block Anterolateral infarct (cited on or before 28-DEC-2018) Abnormal ECG When compared with ECG of 28-DEC-2018 16:47, (unconfirmed) Premature ventricular complexes are no longer Present Aberrant conduction is now Present Confirmed by MD Carie, Pk ([id number]) on 01/02/2019 10:55:36 AM MUSE SYSTEM 12/30/2018 7:36 AM EST 01/02/2019 10:55 AM EST Francisco Javier Whitaker MD ECG ORDERABLES MUSE SYSTEM * Differential, Automated (12/30/2018 4:23 AM EST) Neutrophil % 59.3 % [facility] Neutrophil Absolute 4.56 1.70 - 6.10 x10(3)/[facility] Lymph % 29.0 % [facility] Lymphocytes Abs 2.2 0.9 - 3.2 x10(3)/[facility] Monocyte % 9.4 % [facility] Monocyte Abs 0.7 0.3 - 0.9 x10(3)/[facility] Eos % 1.2 % [facility] Eosinophils Abs 0.1 0.0 - 0.4 x10(3)/[facility] Basophil % 0.7 % [facility] Baso Absolute 0.0 0.0 - 0.1 x10(3)/[facility] Immature Gran % 0.40 % [facility] Comment: Immature granulocytes(IG's)percentage and absolute count will include metamyelocytes, myelocytes, and promyelocytes. Blood smears from CBCs yielding IG's will be scanned manually for concordance. If this scan disagrees with the automated IG or if promyelocytes are noted, a manual differential will be performed. Immature Gran Absolute 0.03 0.00 - 0.04 x10(3)/[facility] Blood specimen (specimen) 12/30/2018 4:23 AM EST 12/30/2018 4:34 AM EST Narrative Resulting Agency Comment Spec In Lab Nicholas Gonzalez MD HEMATOLOGY ORDERABLE S Performing Organization Address City/[facility]/ZIP Co de Phone Number [facility] [place] [address] * (ABNORMAL) Hemogram (12/30/2018 4:23 AM EST) White Blood Cell 7.7 4.0 - 9.5 x10(3)/mc L [facility] Red Blood Cell 5.12 4.58 - 5.54 x10(6)/mc L [facility] Hemoglobin 14.0 13.7 - 16.5 gm/dL [facility] Hematocrit 41.9 40.5 - 48.5 % [facility] Mean Cell Volume 81.8(L) 82.9 - 93.1 fL [facility] Mean Cell Hemoglobin 27.3(L) 27.5 - 32.1 pg [facility] Mean Cell Hemoglobin Concentration 33.4 32.0 - 35.7 gm/dL [facility] Platelet 233 145 - 357 x10(3)/mc L [facility] RDW Standard Deviation 40.5 36.0 - 45.0 [facility] RDW coefficient of variation 13.8 11.4 - 13.8 % [facility] Mean Platelet Volume 11.0 7.6 - 12.9 fL [facility] NRBC% auto 0.0 % [facility] NRBC Absolute 0.000 0.000 - 0.000 x10(3)/mc L [facility] Blood specimen (specimen) 12/30/2018 4:23 AM EST 12/30/2018 4:34 AM EST Narrative Resulting Agency Comment Spec In Lab Nicholas Gonzalez MD HEMATOLOGY ORDERABLE S Performing Organization Address City/[facility]/ZIP Co de Phone Number [facility] [place] [address] * (ABNORMAL) Basic Metabolic Panel (non-fasting) (12/30/2018 4:23 AM EST) Glucose 124 65 - 199 mg/dL [facility] Comment:Diabetes: >=200 mg/d L plus symptoms Blood Urea Nitrogen 21(H) 10 - 20 mg/dL [facility] Creatinine 1.03 0.80 - 1.50 mg/dL [facility] Sodium 140 135 - 145 mmol/L [facility] Potassium 4.0 3.5 - 5.0 mmol/L [facility] Comment: Please note: ??Patients with WBC >100,000 may have falsely elevated Potassium levels. ??For accurate Potassium quantification in these patients send serum separator tube (gold top) for subsequent determinations. ??Contact the Clinical Chemistry Laboratory if there are any questions. Chloride 105 98 - 107 mmol/L [facility] Carbon Dioxide 22 22 - 31 mmol/L [facility] Anion Gap 13 5 - 15 mmol/L [facility] Calcium 9.6 8.5 - 10.5 mg/dL [facility] Est Glomerular Filtration Rate 73 >=60 mL/min/1. 73 m?? [facility] Comment: The eGFR was calculated using the CKD-EPI equation. As with all creatinine based estimates of kidney function, eGFR values calculated with the CKD-EPI equation are not accurate in patients with acute kidney failure, extremes of body mass or the acutely ill. [email or web address] eGFR 85 >=60 mL/min/1. 73 m?? [facility] Comment: The eGFR was calculated using the CKD-EPI equation. As with all creatinine based estimates of kidney function, eGFR values calculated with the CKD-EPI equation are not accurate in patients with acute kidney failure, extremes of body mass or the acutely ill. [email or web address] Blood specimen (specimen) 12/30/2018 4:23 AM EST 12/30/2018 4:34 AM EST Narrative Resulting Agency Comment Spec In Lab Gurvinder Melendez MD CHEMISTRY ORDERABLES Performing Organization Address [facility]/ZIP Co de Phone Number [facility] [place] [address] * Troponin (12/29/2018 6:43 AM EST) [facility] Troponin-T <0.01 0.00 - 0.00 ng/mL [facility] Comment: The 99th percentile for Troponin T is less than 0.01 ng/mL, any detectable cTnT concentration using this assay should be considered elevated. According to the third universal definition of myocardial infarction the following criteria with a clinical presentation consistent with acute myocardial ischemia meets the diagnosis for a myocardial infarction ([place]). Detection of a rise and/or fall of cTnT, with at least one value greater than the 99th percentile (> or = 0.01) and with at least one of the following ?? Symptoms of ischemia ?? New or presumed new significant LR-zfgspqd-U wave (ST-T) changes or new left bundle branch block (LBBB) ?? Development of pathologic Q waves in the ECG ?? Imaging evidence of new loss of viable myocardium or new regional wall motion abnormality ?? Identification of an intracoronary thrombus by angiography or autopsy Samples for cTnT testing should be obtained serially upon first assessment and again 3 to 6 hours later. If the clinical suspicion is high and previous samples have been negative an additional sample may be indicated. Reference: Third [place] Definition of Myocardial Infarction. Journal of the [place] [employer] 2012;60:1581-98 Blood specimen (specimen) 12/29/2018 6:43 AM EST 12/29/2018 7:23 AM EST Narrative Resulting Agency Comment Spec In Lab Francisco Javier Whitaker MD CHEMISTRY ORDERABL ES Performing Organization Address [facility]/ZIP Co de Phone Number [facility] [place] [address] * Differential, Automated (12/29/2018 6:43 AM EST) [facility] Neutrophil % 67.0 % [facility] Neutrophil Absolute 5.74 1.70 - 6.10 x10(3)/mcL [facility] Lymph % 21.5 % [facility] Lymphocytes Abs 1.8 0.9 - 3.2 x10(3)/[facility] Monocyte % 9.2 % [facility] Monocyte Abs 0.8 0.3 - 0.9 x10(3)/[facility] Eos % 1.1 % [facility] Eosinophils Abs 0.1 0.0 - 0.4 x10(3)/[facility] Basophil % 0.7 % [facility] Baso Absolute 0.1 0.0 - 0.1 x10(3)/[facility] Immature Gran % 0.50 % [facility] Comment: Immature granulocytes(IG's)percentage and absolute count will include metamyelocytes, myelocytes, and promyelocytes. Blood smears from CBCs yielding IG's will be scanned manually for concordance. If this scan disagrees with the automated IG or if promyelocytes are noted, a manual differential will be performed. Immature Gran Absolute 0.04 0.00 - 0.04 x10(3)/[facility] Blood specimen (specimen) 12/29/2018 6:43 AM EST 12/29/2018 7:23 AM EST Narrative Resulting Agency Comment Spec In Lab Nicholas Gonzalez MD HEMATOLOGY ORDERABLE S [facility] [place] [place] [address] * (ABNORMAL) Hemogram (12/29/2018 6:43 AM EST) White Blood Cell 8.6 4.0 - 9.5 x10(3)/[facility] Red Blood Cell 5.10 4.58 - 5.54 x10(6)/[facility] Hemoglobin 13.8 13.7 - 16.5 gm/dL [facility] Hematocrit 42.7 40.5 - 48.5 % [facility] Mean Cell Volume 83.7 82.9 - 93.1 fL [facility] Mean Cell Hemoglobin 27.1(L) 27.5 - 32.1 pg [facility] Mean Cell Hemoglobin Concentration 32.3 32.0 - 35.7 gm/dL [facility] Platelet 224 145 - 357 x10(3)/mc L [facility] RDW Standard Deviation 41.9 36.0 - 45.0 fL [facility] RDW coefficient of variation 13.8 11.4 - 13.8 % [facility] Mean Platelet Volume 11.3 7.6 - 12.9 fL [facility] NRBC% auto 0.0 % [facility] NRBC Absolute 0.000 0.000 - 0.000 x10(3)/mc L [facility] Blood specimen (specimen) 12/29/2018 6:43 AM EST 12/29/2018 7:23 AM EST Narrative Resulting Agency Comment Spec In Lab Nicholas Gonzalez MD HEMATOLOGY ORDERABLE S [facility] [place] [address] * (ABNORMAL) Basic Metabolic Panel (non-fasting) (12/29/2018 6:43 AM EST) Glucose 133 65 - 199 mg/dL [facility] Comment:Diabetes: >=200 mg/d L plus symptoms Blood Urea Nitrogen 25(H) 10 - 20 mg/dL [facility] Creatinine 0.90 0.80 - 1.50 mg/dL [facility] Sodium 139 135 - 145 mmol/L [facility] Potassium 3.9 3.5 - 5.0 mmol/L [facility] Comment: Please note: ??Patients with WBC >100,000 may have falsely elevated Potassium levels. ??For accurate Potassium quantification in these patients send serum separator tube (gold top) for subsequent determinations. ??Contact the Clinical Chemistry Laboratory if there are any questions. Chloride 104 98 - 107 mmol/L [facility] Carbon Dioxide 20(L) 22 - 31 mmol/L [facility] Anion Gap 15 5 - 15 mmol/L [facility] Calcium 9.2 8.5 - 10.5 mg/dL [facility] Est Glomerular Filtration Rate 86 >=60 mL/min/1. 73 m?? [facility] Comment: The eGFR was calculated using the CKD-EPI equation. As with all creatinine based estimates of kidney function, eGFR values calculated with the CKD-EPI equation are not accurate in patients with acute kidney failure, extremes of body mass or the acutely ill. [email or web address] eGFR 100 >=60 mL/min/1. 73 m?? [facility] Comment: The eGFR was calculated using the CKD-EPI equation. As with all creatinine based estimates of kidney function, eGFR values calculated with the CKD-EPI equation are not accurate in patients with acute kidney failure, extremes of body mass or the acutely ill. [email or web address] Blood specimen (specimen) 12/29/2018 6:43 AM EST 12/29/2018 7:23 AM EST Narrative Resulting Agency Comment Spec In Lab Gurvinder Melendez MD CHEMISTRY ORDERABLES [facility] [place] [address] * Troponin (12/29/2018 12:27 AM EST) Troponin-T <0.01 0.00 - 0.00 ng/mL [facility] Comment: The 99th percentile for Troponin T is less than 0.01 ng/mL, any detectable cTnT concentration using this assay should be considered elevated. According to the third universal definition of myocardial infarction the following criteria with a clinical presentation consistent with acute myocardial ischemia meets the diagnosis for a myocardial infarction ([place]). Detection of a rise and/or fall of cTnT, with at least one value greater than the 99th percentile (> or = 0.01) and with at least one of the following ?? Symptoms of ischemia ?? New or presumed new significant UF-bakjmdy-F wave (ST-T) changes or new left bundle branch block (LBBB) ?? Development of pathologic Q waves in the ECG ?? Imaging evidence of new loss of viable myocardium or new regional wall motion abnormality ?? Identification of an intracoronary thrombus by angiography or autopsy Samples for cTnT testing should be obtained serially upon first assessment and again 3 to 6 hours later. If the clinical suspicion is high and previous samples have been negative an additional sample may be indicated. Reference: Third [place] Definition of Myocardial Infarction. Journal of the [place] [employer] 2012;60:1581-98 Blood specimen (specimen) 12/29/2018 12:27 AM EST 12/29/2018 12:48 AM EST Narrative Resulting Agency Comment Spec In Lab Francisco Javier Whitaker MD CHEMISTRY ORDERABL ES [facility] [place] [address] * Troponin (12/28/2018 5:30 PM EST) Troponin-T <0.01 0.00 - 0.00 ng/mL [facility] Comment: The 99th percentile for Troponin T is less than 0.01 ng/mL, any detectable cTnT concentration using this assay should be considered elevated. According to the third universal definition of myocardial infarction the following criteria with a clinical presentation consistent with acute myocardial ischemia meets the diagnosis for a myocardial infarction ([place]). Detection of a rise and/or fall of cTnT, with at least one value greater than the 99th percentile (> or = 0.01) and with at least one of the following ?? Symptoms of ischemia ?? New or presumed new significant ZR-aapdkol-X wave (ST-T) changes or new left bundle branch block (LBBB) ?? Development of pathologic Q waves in the ECG ?? Imaging evidence of new loss of viable myocardium or new regional wall motion abnormality ?? Identification of an intracoronary thrombus by angiography or autopsy Samples for cTnT testing should be obtained serially upon first assessment and again 3 to 6 hours later. If the clinical suspicion is high and previous samples have been negative an additional sample may be indicated. Reference: Third [place] Definition of Myocardial Infarction. Journal of the [place] [employer] 2012;60:1581-98 Blood specimen (specimen) 12/28/2018 5:30 PM EST 12/28/2018 5:42 PM EST Narrative Resulting Agency Comment Spec In Lab Francisco Javier Whitaker MD CHEMISTRY ORDERABL ES Performing Organization Address City/[facility]/ZIP Co de Phone Number [facility] [place] [address] * EKG 12 Lead (12/28/2018 4:47 PM EST) Ventricular rate 75 BPM MUSE SYSTEM Atrial Rate 75 BPM MUSE SYSTEM P-R Interval 196 ms MUSE SYSTEM QRS Duration 132 ms MUSE SYSTEM Q-T Interval 432 ms MUSE SYSTEM QTC Calculated (Bezet) 482 ms MUSE SYSTEM Calculated P Hiram 62 degrees MUSE SYSTEM Calculated R Hiram -85 degrees MUSE SYSTEM Calculated T Hiram 92 degrees MUSE SYSTEM INTERPRETATION Sinus rhythm Occasional Premature ventricular complexes Possible Left atrial enlargement Left axis deviation Non-specific intra-ventricul ar conduction block Anterior infarct Abnormal ECG When compared with ECG of 29-JAN-1993 16:07, Premature ventricular complexes are now Present Questionable change in QRS duration Minimal criteria for Anteroseptal infarct are now Present Confirmed by MD Sherman, Francisco Javier Barney ([id number]) on 12/30/2018 3:24:11 PM MUSE SYSTEM 12/28/2018 4:47 PM EST 12/30/2018 3:24 PM EST Francisco Javier Whitaker MD ECG ORDERABLES Performing Organization Address City/[facility]/ZIP Co de Phone Number MUSE SYSTEM documented in this encounter Visit Diagnoses Diagnosis Chest pain, unspecified type Angina pectoris Other and unspecified angina pectoris Essential hypertension Unspecified essential hypertension HLD (hyperlipidemia) Other and unspecified hyperlipidemia Gastroesophageal reflux Esophageal reflux GIB (gastrointestinal bleeding), history of Hemorrhage of gastrointestinal tract, unspecified Typical atrial flutter Atrial flutter Chest pain Chest pain, unspecified Unstable angina Intermediate coronary syndrome documented in this encounter Admitting Diagnoses Diagnosis Chest pain Chest pain, unspecified Unstable angina Intermediate coronary syndrome documented in this encounter Administered Medications Inactive Administered Medications - up to 3 most recent administrations Medication Order MAR Action Action Date Dose Rate Site acetaminophen (TYLENOL) tablet 650 mg 650 mg, Oral, EVERY 4 HOURS PRN, Starting on Mon12/28/18 at 2019, Until Mon01/01/19 at 1623, Pain, for back pain, Maximum dose of acetaminophen is 4000 mg from all sources in 24 hours., Routine Given 12/31/2018 8:38 PM EST 650 mg Given 12/30/2018 8:48 PM EST 650 mg Given 12/30/2018 4:29 PM EST 650 mg amLODIPine (NORVASC) tablet 10 mg 10 mg, Oral, DAILY, First dose on Mon12/29/18 at 0900, Until Discontinued, Routine Given 01/01/2019 9:28 AM EST 10 mg Given 12/31/2018 8:07 AM EST 10 mg Given 12/30/2018 9:25 AM EST 10 mg aspirin EC tablet 81 mg 81 mg, Oral, DAILY, First dose on Mon12/29/18 at 0900, Until Discontinued, Routine Given 01/01/2019 9:28 AM EST 81 mg Given 12/31/2018 8:07 AM EST 81 mg Given 12/30/2018 9:25 AM EST 81 mg atorvastatin (LIPITOR) tablet 80 mg 80 mg, Oral, EVERY EVENING, First dose on Mon12/31/18 at 1700, Until Discontinued, Routine Given 12/31/2018 4:32 PM EST 80 mg calcium carbonate (TUMS) chewable tablet 500 mg 500 mg, Oral, 3 TIMES DAILY PRN, Starting on Mon12/31/18 at 1346, Until Mon01/01/19 at 1623, Heartburn, Routine Given 12/31/2018 6:50 PM EST 500 mg Given 12/31/2018 2:00 PM EST 500 mg clopidogrel (PLAVIX) tablet 75 mg 75 mg, Oral, DAILY, First dose on Mon01/01/19 at 0900, Until Discontinued, Recovery (Recovery-Hospital Unit), Routine Given 01/01/2019 9:28 AM EST 75 mg enoxaparin (LOVENOX) injection 40 mg 40 mg, Subcutaneous, NIGHTLY, First dose on Mon12/28/18 at 2100, Until Discontinued, Routine Given 12/31/2018 8:38 PM EST 40 mg Given 12/30/2018 8:47 PM EST 40 mg Given 12/29/2018 8:37 PM EST 40 mg fluticasone (FLONASE) 50 mcg/actuation nasal spray 1 spray 1 spray, Each Nare, DAILY, First dose on 12/29/18 at 0900, Until Discontinued, Routine Given 01/01/2019 9:26 AM EST 1 spray Given 12/31/2018 8:06 AM EST 1 spray Given 12/30/2018 9:27 AM EST 1 spray lisinopril (PRINIVIL;ZESTRIL) tablet 20 mg 20 mg, Oral, DAILY, First dose on Mon12/29/18 at 0900, Until Discontinued, Routine Given 01/01/2019 9:28 AM EST 20 mg Given 12/31/2018 8:06 AM EST 20 mg Given 12/30/2018 9:25 AM EST 20 mg metoprolol succinate (TOPROL-XL) XL tablet 50 mg 50 mg, Oral, DAILY, First dose on 12/29/18 at 0900, Until Discontinued, DO NOT CRUSH OR OPEN, Routine Given 01/01/2019 9:28 AM EST 50 mg Given 12/31/2018 8:07 AM EST 50 mg Given 12/30/2018 9:25 AM EST 50 mg pantoprazole (PROTONIX) tablet 40 mg 40 mg, Oral, DAILY, First dose on Mon12/28/18 at 2000, Until Discontinued Given 01/01/2019 9:28 AM EST 40 mg Given 12/31/2018 8:07 AM EST 40 mg Given 12/30/2018 9:25 AM EST 40 mg perflutren protein-A microspheres (OPTISON) 0.22 mg/mL injection 0.3 mL 0.3 mL, Intravenous, ONCE PRN, 1 dose, Starting on Mon01/01/19 at 1207, Until Mon01/01/19 at 1207, for enhancement of sub-optimal echo images, Echo Lab (Intra-Procedure), Routine Given 01/01/2019 12:07 PM EST 0.3 mLs potassium chloride (K-DUR/KLOR-CON) extended release tablet 30 mEq 30 mEq, Oral, ONCE, 1 dose, On Mon01/01/19 at 0600, Routine Given 01/01/2019 6:29 AM EST 30 mEq sodium chloride 0.9 % flush 5 mL 5 mL, Intravenous, 2 TIMES DAILY, First dose on Mon12/28/18 at 2100, Until Discontinued, Routine Given 01/01/2019 9:30 AM EST 5 mLs Given 12/31/2018 8:38 PM EST 5 mLs Given 12/31/2018 9:00 AM EST 5 mLs sodium chloride 0.9% infusion 100 mL/hr, Intravenous, CONTINUOUS, Starting on Mon12/31/18 at 1200, Until Mon12/31/18 at 1459, Recovery (Recovery-Hospital Unit) New Bag 12/31/2018 12:00 PM EST 100 mL/hr 100 m L/hr traMADol (ULTRAM) tablet 25 mg 25 mg, Oral, ONCE, 1 dose, On 12/30/18 at 0030, Routine Given 12/30/2018 12:30 AM EST 25 mg documented in this encounter Active and Recently Administered Medications Times are shown in EST. Scheduled Medication Order 12/30/2018 12/31/2018 01/01/2019 amLODIPine (NORVASC) tablet 10 mg 10 mg, Oral, DAILY, First dose on 12/29/18 at 0900, Until Discontinued, Routine 0925 (Given - Provider: Amanda Vang RN) 0807 (Given - Provider: Wade Hernández RN)0946 (JAN Hold - Provider: Admin Adt - Reason: Transfer to a Procedural area)1249 (JAN Unhold - Provider: Admin Adt) 0928 (Given - Provider: Jenna Smith RN) aspirin EC tablet 81 mg 81 mg, Oral, DAILY, First dose on 12/29/18 at 0900, Until Discontinued, Routine 0925 (Given - Provider: Amanda Vang RN) 0807 (Given - Provider: Wade Hernández, TO)0946 (JAN Hold - Provider: Admin Adt - Reason: Transfer to a Procedural area)1249 (JAN Unhold - Provider: Admin Adt) 0928 (Given - Provider: Jenna Smith, TO) atorvastatin (LIPITOR) tablet 80 mg 80 mg, Oral, EVERY EVENING, First dose on Mon12/31/18 at 1700, Until Discontinued, Routine 1632 (Given - Provider: Cynthia Stiles RN) clopidogrel (PLAVIX) tablet 75 mg 75 mg, Oral, DAILY, First dose on 01/01/19 at 0900, Until Discontinued, Recovery (Recovery-Hospital Unit), Routine 0928 (Given - Provider: Jenna M Luis, RN) enoxaparin (LOVENOX) injection 40 mg 40 mg, Subcutaneous, NIGHTLY, First dose on Mon12/28/18 at 2100, Until Discontinued, Routine 2046 (Given - Provider: Calvin Dubois RN) 0946 (JAN Hold - Provider: Admin Adt - Reason: Transfer to a Procedural area)1249 ([facility] Unhold - Provider: Admin Adt)2037 (Given - Provider: Ashlyn Prado RN) fluticasone (FLONASE) 50 mcg/actuation nasal spray 1 spray 1 spray, Each Nare, DAILY, First dose on 12/29/18 at 0900, Until Discontinued, Routine 926 (Given - Provider: Amanda Vang RN) 08 (Given - Provider: Wade Hernández, TO)0946 (JAN Hold - Provider: Admin Adt - Reason: Transfer to a Procedural area)124 ([facility] Unhold - Provider: Admin Adt) 09 (Given - Provider: Jenna Smith, RN) lisinopril (PRINIVIL;ZESTRIL) tablet 20 mg 20 mg, Oral, DAILY, First dose on 12/29/18 at 0900, Until Discontinued, Routine 924 (Given - Provider: Amanda Vang RN) 0806 (Given - Provider: Wade Hernández, TO)0946 (JAN Hold - Provider: Admin Adt - Reason: Transfer to a Procedural area)124 ([facility] Unhold - Provider: Admin Adt) 0928 (Given - Provider: Jenna Smith, RN) metoprolol succinate (TOPROL-XL) XL tablet 50 mg 50 mg, Oral, DAILY, First dose on 12/29/18 at 0900, Until Discontinued, DO NOT CRUSH OR OPEN, Routine 09 (Given - Provider: Amanda Vang RN) 0807 (Given - Provider: Wade Hernández, TO)0946 (JAN Hold - Provider: Admin Adt - Reason: Transfer to a Procedural area)124 ([facility] Unhold - Provider: Admin Adt) 0928 (Given - Provider: Jenna Smith, TO) pantoprazole (PROTONIX) tablet 40 mg 40 mg, Oral, DAILY, First dose on Mon12/28/18 at 2000, Until Discontinued 09 (Given - Provider: Amanda Vang RN) 0807 (Given - Provider: Wade Hernández, TO)0946 (JAN Hold - Provider: Admin Adt - Reason: Transfer to a Procedural area)1249 (JAN Unhold - Provider: Admin Adt) 0928 (Given - Provider: Jenna Smith, TO) potassium chloride (K-DUR/KLOR-CON) extended release tablet 30 mEq (COMPLETED) 30 mEq, Oral, ONCE, 1 dose, On Mon01/01/19 at 0600, Routine 0629 (Given - Provider: Ashlyn Prado, TO) sodium chloride 0.9 % flush 5 mL 5 mL, Intravenous, 2 TIMES DAILY, First dose on Mon12/28/18 at 2100, Until Discontinued, Routine 0929 (Given - Provider: Amanda Vang RN)2051 (Given - Provider: Calvin Dubois RN) 0900 (Given - Provider: Wade Hernández, TO)0946 (JAN Hold - Provider: Admin Adt - Reason: Transfer to a Procedural area)1249 (JAN Unhold - Provider: Admin Adt)2037 (Given - Provider: Ashlyn Prado, TO) 0930 (Given - Provider: Jenna Smith, TO) traMADol (ULTRAM) tablet 25 mg (COMPLETED) 25 mg, Oral, ONCE, 1 dose, On Mon12/30/18 at 0030, Routine 0030 (Given - Provider: Marina Brown RN) Continuous Medication Order 12/30/2018 12/31/2018 01/01/2019 sodium chloride 0.9% infusion () 100 mL/hr, Intravenous, CONTINUOUS, Starting on Mon12/31/18 at 1200, Until Mon12/31/18 at 1459, Recovery (Recovery-Hospital Unit) 1200 (New Bag - Provider: Wesley Hernández, TO) PRN Medication Order 12/30/2018 12/31/2018 01/01/2019 acetaminophen (TYLENOL) tablet 650 mg 650 mg, Oral, EVERY 4 HOURS PRN, Starting on Mon12/28/18 at 2019, Until Mon01/01/19 at 1623, Pain, for back pain, Maximum dose of acetaminophen is 4000 mg from all sources in 24 hours., Routine 0054 (Given - Provider: Marina Brown RN)1246 (Given - Provider: Amanda Vang RN)1629 (Given - Provider: Amanda Vang RN)2048 (Given - Provider: Calvin Dubois RN) 0946 (JAN Hold - Provider: Admin Adt - Reason: Transfer to a Procedural area)1249 (JAN Unhold - Provider: Admin Adt)2037 (Given - Provider: Ashlyn Prado RN - Comment: low back pain) alum-mag hydroxide-simeth (MAALOX) 200-200-20 mg/5 mL oral suspension (CANCELED) ONCE PRN, Starting on Mon12/31/18 at 1134, Until Mon12/31/18 at 1142, Cath (Intra-Procedure), Routine 1134 (Given - Provider: Kaylen Valencia RN) calcium carbonate (TUMS) chewable tablet 500 mg 500 mg, Oral, 3 TIMES DAILY PRN, Starting on Mon12/31/18 at 1346, Until Mon01/01/19 at 1623, Heartburn, Routine 1400 (Given - Provider: Wade Hernández RN)1850 (Given - Provider: Cynthia Stiles RN) clopidogrel (PLAVIX) tablet (CANCELED) ONCE PRN, Starting on Mon12/31/18 at 1059, Until Mon12/31/18 at 1249, Intra-Operative (Intra-Procedure), Routine 1059 (Given - Provider: Kaylen Valencia RN) fentaNYL 50 mcg/mL multi-dose injection (CANCELED) ONCE PRN, Starting on Mon12/31/18 at 1003, Until Mon12/31/18 at 1142, Cath (Intra-Procedure), Routine 1003 (Given - Provider: Susan De La Cruz RN)1018 (Given - Provider: Kaylen Valencia RN)1048 (Given - Provider: Kaylen Valencia RN) heparin (porcine) injection (CANCELED) ONCE PRN, Starting on Mon12/31/18 at 1031, Until Mon12/31/18 at 1142, Cath (Intra-Procedure), Routine 1031 (Given - Provider: Kaylen Valencia RN)1100 (Given - Provider: Susan De La Cruz RN) lidocaine (XYLOCAINE) 10 mg/mL (1 %) injection 3 mg 3 mg (0.3 mL), Subcutaneous, ONCE PRN, 1 dose, Starting on Mon12/28/18 at 1828, Until Mon01/01/19 at 1623, for discomfort with PIV insertion, Routine 0946 ([facility] Hold - Provider: Admin Adt - Reason: Transfer to a Procedural area)1249 ([facility] Unhold - Provider: Admin Adt) midazolam (PF) (VERSED) multi-dose injection (CANCELED) ONCE PRN, Starting on Mon12/31/18 at 1003, Until Mon12/31/18 at 1142, Cath (Intra-Procedure), Routine 1003 (Given - Provider: Susan De La Cruz RN)1018 (Given - Provider: Kaylen Valencia RN) nitroGLYcerin (NITROSTAT) SL tablet 0.4 mg 0.4 mg, Sublingual, EVERY 5 MIN PRN, Starting on Mon12/28/18 at 1828, Until Mon01/01/19 at 1623, Chest pain, May repeat every 5 minutes for a total of three doses. Notify provider if chest pain not relieved with nitroglycerin. Do not administer nitroglycerin if the patient has received or taken phosphodiesterase (PDE-5) inhibitors such as sildenafil, tadalafil or vardenafil within the last 24 to 72 hours., Routine 0946 ([facility] Hold - Provider: Admin Adt - Reason: Transfer to a Procedural area)1249 ([facility] Unhold - Provider: Admin Adt) nitroGLYcerin 100 mcg/mL intracoronary dilution (CANCELED) ONCE PRN, Starting on Mon12/31/18 at 1029, Until Mon12/31/18 at 1142, Cath (Intra-Procedure), Routine 1029 (Given - Provider: Reagan Medina MD)1118 (Given - Provider: Reagan Medina MD) perflutren protein-A microspheres (OPTISON) 0.22 mg/mL injection 0.3 mL (COMPLETED) 0.3 mL, Intravenous, ONCE PRN, 1 dose, Starting on Mon01/01/19 at 1207, Until Mon01/01/19 at 1207, for enhancement of sub-optimal echo images, Echo Lab (Intra-Procedure), Routine 1207 (Given - Provider: Lluvia George) sodium chloride 0.9 % flush 5-20 mL 5-20 mL, Intravenous, EVERY 1 MIN PRN, Starting on Mon12/28/18 at 1828, Until Mon01/01/19 at 1623, flush, Flush pertains to all indwelling lines. Flush per protocol found in the job aid using the link provided on this medication record., Routine 0946 (JAN Hold - Provider: Admin Adt - Reason: Transfer to a Procedural area)1249 (JAN Unhold - Provider: Admin Adt) verapamil (ISOPTIN) injection (CANCELED) ONCE PRN, Starting on Mon12/31/18 at 1029, Until Mon12/31/18 at 1138, Administer over 2 Minutes, Cath (Intra-Procedure) 1029 (Given - Provider: Reagan Medina MD) documented in this encounter Care Teams Price Checker Relationship 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
--- OUTSIDE RECORDS SUMMARY | 2024-12-13 01:22 | XMS_ITS | Encounter Summary ---
Author Organization [facility] Address [facility] [place] [address] Care Team Providers Care Clinical Application Consultant Name Role Phone Yoko Dhaliwal MD Primary Care Provider Sona ble Encounter Details Date Type Department Care Team (Late st Contact Info) Description 03/24/2020 Notes Only Cardiology at [address] [phone] Pk Darnell MD [facility] [place] [address] Social History Tobacco Use Types Packs/Day Years [...] as of this encounter Progress Notes * Pk Darnell MD - 03/24/2020 4:31 PM EDT Biotronik DDD PPM remote reviewed. AF detected with 16 hour episode. Elevated, stable RV pace threshold. documented in this encounter Plan of Treatment Upcoming Encounters Date Type Department Care Team (Late st Contact Info) Description 03/08/2025 10:00 AM EDT Hospital Encounter Non[place] [address] Arrived documented as of this encounter Visit Diagnoses Not on filedocumented in this encounter Care Teams Clinical Application Consultant Relationship Specialty Start Date End Date Yoko Dhaliwal MD PCP - General Internal Medicine 06/25/18 11/21/24 documented as of this encounter
--- OUTSIDE RECORDS SUMMARY | 2024-12-13 01:22 | XMS_ITS | Encounter Summary ---
Author Organization [facility] [address] Care Team Providers Care Clay Artisan Name Role Phone Yoko Dhaliwal MD Primary Care Provider Elias virk Encounter Details Date Type Department Care Team (Latest Contact Info) Description 11/08/2021 2:29 PM EST - 11/08/2021 11:59 PM EST Hospital Encounter Non-[place] [phone] Glory Cardona MD [facility] [place] [address] Atrial fibrillation, unspecified type Discharge Disposition: Home [...] BEDTIME 0 06/02/2018 fluticasone (FLONASE) 50 mcg/actuation [place], Suspension USE 2 SPRAYS NASALLY DAILY 3 [...] AM EDT Hospital Encounter Non-[place]vasive [place] [address] Arrived documented as of this encounter Procedures Procedure Name Priority Date/Time Associated Diagnosis Comments PCM INTERROGATION 3 MONTH Routine 11/08/2021 2:29 PM EST Atrial fibrillation, unspecified type documented in this encounter Results * PCM INTERROGATION 3 MONTH (11/08/2021 2:29 PM EST) Anatomical Region Laterality Modality Other Narrative 11/10/2021 3:49 PM EST Outpatient remote interrogation report: See full report as a linked pdf document Date of transmission: 11/08/2021 Device forms designer: BTK Device type: DC PM Pacing: AP 7% ANIMAL CONTROL SUPERVISOR 8% Battery: OK, 70% Episodes: 12% AT/AF Stable lead trends. Activity OK Glory Cardona MD 11/10/2021 3:47 PM Glory Cardona MD IMPLANTABLE CARDIAC DEVICE documented in this encounter Visit Diagnoses Diagnosis Atrial fibrillation, unspecified type documented in this encounter Care Teams Clay Artisan Relationship Specialty Start Date End Date Yoko Dhaliwal MD PCP - General Internal Medicine 06/25/18 11/21/24 documented as of this encounter
--- OUTSIDE RECORDS SUMMARY | 2024-12-13 01:22 | XMS_ITS | Encounter Summary ---
[place] [address] Care Team Providers Care Superannuation Clerk Name Role Phone Yoko Dhaliwal MD Primary Care Provider Unavaila ble Encounter Details Date Type Department Care Team (Late st Contact Info) Description 02/11/2020 External Results Cardiology at [address] [phone] Yoko Dhaliwal MD Social History Tobacco Use Types Packs/Day Years [...] AM EDT Hospital Encounter Non-[place] [address] Arrived documented as of this encounter Procedures Procedure Name Priority Date/Time Associated Diagnosis Comments EP DEVICE SCAN Routine 01/30/2020 documented in this encounter Results * Scan Doc: EP Device (01/30/2020) Anatomical Region Laterality Modality Other Yoko Dhaliwal MD MEDIA MGR SCAN EXT O RDR/RSLT documented in this encounter Visit Diagnoses Not on filedocumented in this encounter Care Teams Superannuation Clerk Relationship Specialty Start Date End Date Yoko Dhaliwal MD PCP - General Internal Medicine 06/25/18 11/21/24 documented as of this encounter
--- OUTSIDE RECORDS SUMMARY | 2024-12-13 01:22 | XMS_ITS | Encounter Summary ---
Author Organization [place] [id number] Care Team Providers Care Operations Intelligence Superintendent Name Role Phone Yoko Dhaliwal MD Primary Care Provider Unavaila ble Encounter Details Date Type Department Care Team (Late st Contact Info) Description 03/13/2019 Telephone [place] [phone] Felicitas Alfaro Social History Tobacco [...] encounter Miscellaneous Notes * Telephone Encounter - Felicitas Alfaro - 03/13/2019 10:[address] Yoko Hemphill contacted the office this morning requesting to schedule a colonoscopy for the patient VICENTE stating he is actively bleeding again. There is a referral in the system for the patient tohave an office visit. Per Stoney Alcaraz, the patient is safe to come into the office for a colonoscopy prior to having an office visit. Clinic team will be informed. I contacted Dr. Hemphill's office to confirm the procedure. Prescription and prep instructions have been faxed to [facility] per the patient's request documented in this encounter Plan of Treatment Upcoming Encounters Date Type Department Care Team (Late st Contact Info) Description 03/08/2025 10:00 AM EDT Hospital Encounter Non-Invasive [place] [phone] Arrived documented as of this encounter Visit Diagnoses Not on filedocumented in this encounter Care Teams Operations Intelligence Superintendent Relationship Specialty Start Date End Date Yoko Dhaliwal MD PCP - General Internal Medicine 06/25/18 11/21/24 documented as of this encounter
--- OUTSIDE RECORDS SUMMARY | 2024-12-13 01:22 | XMS_ITS | Encounter Summary ---
Author Organization [facility] Address [facility] [place] [address] Care Team Providers Care Field Examiner Name Role Phone Yoko Dhaliwal MD Primary Care Provider Elias virk Encounter Details Date Type Department Care Team (Late st Contact Info) Description 04/23/2021 Notes Only Cardiology at [address] [phone] Dave Vargas PA [facility] [place] [address] Social History Tobacco Use Types Packs/Day Years [...] Progress Notes * Dave Vargas PA - 04/23/2021 4:33 PM EDT Cardiac Electrophysiology Cardiac Implantable Electronic Device Remote Monitoring Interpretation Warren Noel [id number] Transmission Date: 04/23/2021 Device Type: Pacemaker Generator: Biotronik Gina ESPINO #[id number] Battery Status: OK, 70% Atrial Pacin% Ventricular Pacin% Alerts: AT episode April 22, 2021; 08:37 AT 2h 53 min 58 sec Impression: Mr Noel experienced three hours of possible atrial flutter today. His overall burden is 7% sinceApril 15. He has a history of flutter and is anticoagulated on apixaban. Normally functioning device Dave Vargas PA-C 04/23/2021 Pager [phone] documented in this encounter Plan of Treatment Upcoming Encounters Date Type Department Care Team (Late st Contact Info) Description 03/08/2025 10:00 AM EDT Hospital Encounter Non-[place]vasive [place] [phone] Arrived documented as of this encounter Visit Diagnoses Not on filedocumented in this encounter Care Teams Field Examiner Relationship Specialty Start Date End Date Yoko Dhaliwal MD PCP - General Internal Medicine 06/25/18 11/21/24 documented as of this encounter
--- OUTSIDE RECORDS SUMMARY | 2024-12-13 01:22 | XMS_ITS | Encounter Summary ---
Author Organization [facility] [place] [address] Care Team Providers Care Nipple Maker Name Role Phone Yoko Dhaliwal MD Primary Care Provider Elias virk Encounter Details Date Type Department Care Team (Late st Contact Info) Description 07/31/2020 Notes [place] [phone] Dontrell Vickers PA [facility] [place] [address] Social History Tobacco Use Types Packs/Day Years [...] as of this encounter Progress Notes * Dontrell Vickers PA - 07/31/2020 11:59 PM EDT REMOTE DEVICE DOWNLOAD 07/31/2020 DEVICE: BIOTRONIK EDORA PACEMAKER BATTERY: OK ALERTS: RA sensing amplitude below limit EVENTS: 12% AF burden since April 16, 2020 with mostly rate-controlled ventricular response; in AFib at time of download IMPRESSION: Normal device function. Low RA sensing amplitude in setting of atrial fibrillation. Chronically elevated RV pacing threshold. 12% AF burden with acceptable rate control on metoprolol; anticoagulated on Eliquis. PLAN: Follow-up in device clinic as previously arranged. documented in this encounter Plan of Treatment Upcoming Encounters Date Type Department Care Team (Late st Contact Info) Description 03/08/2025 10:00 AM EDT Hospital Encounter [place] [address] Arrived documented as of this encounter Visit Diagnoses Not on filedocumented in this encounter Care Teams Nipple Maker Relationship Specialty Start Date End Date Yoko Dhaliwal MD PCP - General Internal Medicine 06/25/18 11/21/24 documented as of this encounter
--- OUTSIDE RECORDS SUMMARY | 2024-12-13 01:22 | XMS_ITS | Encounter Summary ---
Author Organization [facility] [place] [address] Care Team Providers Care Courtesy Clerk Name Role Phone Yoko Dhaliwal MD Primary Care Provider Elias virk Encounter Details Date Type Department Care Team (Latest Contact Info) Description 10/28/2020 10:47 AM EST - 10/28/2020 11:59 PM EST Hospital Encounter [place] [phone] Mikhail Florence MD [facility] [place] [address] Atrial fibrillation, unspecified type Discharge Disposition: Home [...] BEDTIME 0 06/02/2018 fluticasone (FLONASE) 50 mcg/actuation [place], Suspension USE 2 SPRAYS NASALLY DAILY 3 [...] AM EDT Hospital Encounter Non[place] [address] Arrived documented as of this encounter Procedures Procedure Name Priority Date/Time Associated Diagnosis Comments PCM INTERROGATION 3 MONTH Routine 10/28/2020 10:48 AM EST Atrial fibrillation, unspecified type documented in this encounter Results * PCM INTERROGATION 3 MONTH (10/28/2020 10:48 AM EST) Anatomical Region Laterality Modality Other Narrative 10/29/2020 8:55 AM EST Cardiac Device Remote Monitoring Report Summary [employer] [facility] 10/29/20 Device: Pacemaker Model: EDORA Battery: Okay, 80% Pacing percentage: Atrial paced 5%, ventricular paced 88% Events: 3 atrial tachycardia/atrial fibrillation episodes, reasonable ventricular rates Impression Normal device function Follow Up As per schedule - in-clinic and remote MIKHAIL FLORENCE MD Mikhail Florence MD IMPLANTABLE CARDIAC DEVICE documented in this encounter Visit Diagnoses Diagnosis Atrial fibrillation, unspecified type documented in this encounter Care Teams Courtesy Clerk Relationship Specialty Start Date End Date Yoko Dhaliwal MD PCP - General Internal Medicine 06/25/18 11/21/24 documented as of this encounter
--- OUTSIDE RECORDS SUMMARY | 2024-12-13 01:22 | XMS_ITS | Encounter Summary ---
[place] [address] Care Team Providers Care Manager Event Name Role Phone Yoko Dhaliwal MD Primary Care Provider Elias virk Encounter Details Date Type Department Care Team (Late st Contact Info) Description 05/22/2019 Telephone Gastroenterology at [place] [phone] Holly Burrows Social History Tobacco Use Types Packs/Day Years [...] encounter Miscellaneous Notes * Telephone Encounter - Holly Burrows - 05/22/2019 12:04 PM EDT Warren Noel [id number] Diagnosis: [place] 1. Have you ever had a colonoscopy before? [x] YES [] NO If Yes, Date of Last [place]:__06/07/18 ([facility]) If yes, did you have any problems with the procedure? [] YES [x] NO Explain: What type of sedation was used: 2. Do you take any Blood Thinners? [x] YES [] NO If Yes, type: _Eliquis & Plavix 3. Do you have a Pacemaker or Defibrillator device? [x] YES [] No Pacemaker If Yes send inSoCloz message to [facility] DEVICE CHECK 4. Are you a diabetic? [] YES [x] NO If yes, controlled by meds or diet? 5. Do you have any Allergies to Eggs, Latex or Medications? [x] YES [] NO If Yes, what:See ED 6. Do you take any Oral Iron Supplements (Including multi vitamins)? [x] YES [] NO Iron Infusions 7. Do you have a history of three or more abdominal surgeries? [] YES [x] NO 8. Have you had a problem with sedation or anesthesia? [] YES [x] NO 9. Do you have a c-pap machine or oxygen tank? [] C-PAP [] Oxygen [] NO 10. Do you take prescription narcotic pain medications? [x] YES [] NO Tyenol 4 & tramadol 11. You must have a responsible democrat stay at the facility during your procedure and drive you home? [x] YES 12. Is there any other information you would like to give us to aid in scheduling? Height: _5'10__ Weight:_200__ BMI: _28.7___ Age:69 y.o. documented in this encounter Plan of Treatment Upcoming Encounters Date Type Department Care Team (Late st Contact Info) Description 03/08/2025 10:00 AM EDT Hospital Encounter Non[place] [address] Arrived documented as of this encounter Visit Diagnoses Not on filedocumented in this encounter Care Teams Manager Event Relationship Specialty Start Date End Date Yoko Dhaliwal MD PCP - General Internal Medicine 06/25/18 11/21/24 documented as of this encounter
--- OUTSIDE RECORDS SUMMARY | 2024-12-13 01:22 | XMS_ITS | Encounter Summary ---
[place] [address] Care Team Providers Care Table Keeper Name Role Phone Yoko Dhaliwal MD Primary Care Provider Elias virk Encounter Details Date Type Department Care Team (Late st Contact Info) Description 12/02/2019 External Results Cardiology at [address] [phone] Social History Tobacco Use Types Packs/Day Years [...] AM EDT Hospital Encounter Non-[place]vasive [place] [address] Arrived documented as of this encounter Procedures Procedure Name Priority Date/Time Associated Diagnosis Comments EP DEVICE SCAN Routine 11/14/2019 documented in this encounter Results * Scan Doc: EP Device (11/14/2019) Anatomical Region Laterality Modality Other Historical Provider MD MEDIA MGR SCAN EX T ORDR/RSLT documented in this encounter Visit Diagnoses Not on filedocumented in this encounter Care Teams Table Keeper Relationship Specialty Start Date End Date Yoko Dhaliwal MD PCP - General Internal Medicine 06/25/18 11/21/24 documented as of this encounter
--- OUTSIDE RECORDS SUMMARY | 2024-12-13 01:22 | XMS_ITS | Encounter Summary ---
[place] [address] Care Team Providers Care Boarding Room Fixer Name Role Phone Yoko Dhaliwal MD Primary Care Provider Elias ble Encounter Details Date Type Department Care Team (Late st Contact Info) Description 01/27/2020 Telephone [place] [phone] Concetta Retana Social History Tobacco Use Types Packs/Day Years [...] encounter Miscellaneous Notes * Telephone Encounter - Concetta Retana - 01/27/2020 1:[address] Yoko Dhaliwal called to speak to someone about pt who is currently out pt. She has a concern due to iron levels. Would like to speak to someone. She would like a call back on her cell [phone] documented in this encounter Plan of Treatment Upcoming Encounters Date Type Department Care Team (Late st Contact Info) Description 03/08/2025 10:00 AM EDT Hospital Encounter Non-[place]vasive [place] [phone] Arrived documented as of this encounter Visit Diagnoses Not on filedocumented in this encounter Care Teams Boarding Room Fixer Relationship Specialty Start Date End Date Yoko Dhaliwal MD PCP - General Internal Medicine 06/25/18 11/21/24 documented as of this encounter
--- OUTSIDE RECORDS SUMMARY | 2024-12-13 01:22 | XMS_ITS | Encounter Summary ---
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 Name Role Phone Luis Dhaliwal MD Primary Care Provider Unavaila ble Reason for Visit * Auth/Cert Specialty Diagnoses / Procedures Referred By Eric t Referred To Contact Diagnoses Chest pain CP Referral ID Status Reason Start Date Expiration Date Visits Re quested Visits Authorized [id number] 1 1 Encounter Details Date Type Department Care Team (Late st Contact Info) Description 12/31/2018 1:00 PM EST - 12/31/2018 2:00 PM EST Surgery [place] [phone] Reagan Medina MD [facility] [place] [address] CARDIAC CATHETERIZATION Social History Tobacco Use Types Packs/Day Years [...] Sign Reading Time Taken Comments Blood Pressure 136/70 12/31/2018 12:51 PM EST Pulse 104 12/31/2018 12:30 PM EST Temperature 36.3 ??C (97.3 ??F) 12/31/2018 1 2:51 PM EST Respiratory Rate 18 12/31/2018 12:5 1 PM EST Oxygen Saturation 96% 12/31/2018 12: 51 PM EST Inhaled Oxygen Concentration - - Weight 92.4 kg (203 lb 11.3 oz) 12/31/2018 5:55 AM EST Height 177.8 cm (5' 10) 12/28/2018 [...] atrial flutter who presents in transfer from [facility] for further evaluation of unstable angina and [...] a while Not on OAC per outpatient furnace repairer helper, awaiting cath ??? Chest pain Resolved Hospital Problems No resolved problems to display. Active Non-Hospital Problems Diagnosis ??? Foreign body in small intestine Procedures: Procedure(s) with comments: CARDIAC CATHETERIZATION - Procedure: Coronary Angiography +/- PCI History of Presentation (per 12/28/2018 Admission H&P): 68 M with hx as above presents on transfer from [facility] with chest pain that occurred at rest [...] at 1:20pm) Please ensure you see your furnace repairer helper (heart doctor), Dr. Bautista, within 4-6 weeks of discharge.Please call their office at [phone] to schedule an appointment. Your Inpatient Doctor(s) at [facility]: Francisco Javier Whitaker MD Attending Physician General Instructions None Provider Contact Information: Luis Dhaliwal MD [address] / [place] [address] Discharge References/Attachments: Discharge References/Attachments None documented in [...] at 1:20pm) Please ensure you see your furnace repairer helper (heart doctor), Dr. Bautista, within 4-6 weeks of discharge.Please call their office at [phone] to schedule an appointment. Your Inpatient Doctor(s) at [facility]: Francisco Javier Whitaker MD Attending Physician documented [...] BEDTIME 0 06/02/2018 fluticasone (FLONASE) 50 mcg/actuation [place], Suspension USE 2 SPRAYS NASALLY DAILY 3 [...] pain or sob. 5 bt run of [facility], team aware. Discharge teaching provided. Discontinued IVs [...] Intake/Output Summary (Last 24 hours) at 01/01/2019 0522 Last data filed at 01/01/2019 0451 Gross [...] - Diet: Daily Healthy Menu Choices/Cardiac diet ([facility]-Diet) - Access: PIV - Consults: None - Dispo:Home today - Code status: Full Code Chey Locke MD, PGY-1 Cardiology S1, Pager [phone] Associated attestation - Francisco Javier Whitaker MD [...] MD, FACP, FACC Section of Cardiovascular Medicine [facility] [employer] Processor[employer] truing inspector [facility] This patient meets or has met medical criteria to require an inpatient level of care, i.e. a minimum of two midnights in the hospital with multiple complex problems. * Chey Locke Yaz - 12/31/2018 5:04 PM EST Post [...] (dressing intact, ++ pulse, wnl) Care assumed [id number], patient a+O x4, denies cp, no difficulty voiding. * Wade Hernández RN - 12/31/2018 2:19 PM EST TR band off per protocol * Nicholas Gonzalez - 12/31/2018 7:42 AM EST Pre Cardiac Catheterization Note 68 y.o. male presents with chest pain at rest > 48 hours prior to arrival. None since. History of stable angina pectoris, uptitrating medications without effect on angina. 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 ROS: No palpitations, [...] Chey Locke MD, PGY-1 Cardiology S1, Pager [phone] Associated attestation - Francisco Javier Whitaker MD [...] MD, FACP, FACC Section of Cardiovascular Medicine [facility] [employer] truing inspector [facility] This patient meets or has met medical criteria to require an inpatient level of care, i.e. a minimum of two midnights in the hospital with multiple complex problems. * Verna Hernández RN - 12/30/2018 3:32 PM EST Office of Care Management Progress Note Notified by [facility] Utilization Management (UM) Department that the patient's [...] patient. The couple was offered copies of [facility] publications; Are You a Hospital Inpatient or Outpatient? and Medicare Rights and Protections. Copy of letter to be scanned into patient's medical record. The team was notified that the notification was completed. Alana Hernández RNCM Pager: [phone] * Chey Locke - 12/30/2018 6:51 AM [...] 21* 25* CREATININE 1.03 0.90 Recent Labs 12/30/183 12/29/18 0643 CALCIUM 9.6 9.2 No results [...] (Give Meds) Daily Healthy Menu Choices/Cardiac diet ([facility]Diet) - Access: PIV - Consults: None - Dispo:Home - Code status: Full Code Chey Locke MD, PGY-1 Cardiology S1, Pager [phone] Associated attestation - Francisco Javier Whitaker MD [...] transferred for coronary angiography by his local furnace repairer helper. Unfortunately, the on-call interventional team has been extremely busy doing emergent cases. Therefore, given his clinical stability, his cardiac cath will likely happen during the week. We will continue to treat him medically and will reconsider the timing of angiography should his clinicalsituation change. Francisco Javier Whitaker MD, FACP, FACC Section of Cardiovascular Medicine [facility] [employer] truing inspector [facility] This patient meets or has met medical [...] Nicholas Lopez DO, PGY-2 Cardiology S1, Pager [phone] Associated attestation - Francisco Javier Whitaker MD [...] MD, FACP, FACC Section of Cardiovascular Medicine [facility] [employer] truing inspector [facility] This patient meets or has met medical criteria to require an inpatient level of care, i.e. a minimum of two midnights in the hospital with multiple complex problems. documented in this encounter H&P Notes * Nicholas Gonzalez - 12/28/2018 5:34 PM EST Cardiology Admission [...] a while Not on OAC per outpatient furnace repairer helper, awaiting cath ??? Chest pain Resolved Hospital Problems No resolved problems to display. History of Present Illness: HPI 68 M with hx as above presents on transfer from [facility] with chest pain that occurred at rest [...] 0.17) performed by Eliza High MD at [facility] MAIN OR ? ? PRG GI TRACT IMAGING, INTRALUMINAL, ESOPHAGUS THROUGH ILEUM, W INTERP & REPORT N/A 06/28/2018 VIDEO CAPSULE ENDOSCOPY performed by Rafa Leslie MD at [facility] ENDOSCOPY ? ? PRO LAP, SURG, ENTERECTOMY, RESECT & ANAST N/A 07/23/2018 @LAPAROSCOPIC ASSISTED SM. BOWEL RESECTION, SINGLE (WRVU 23.39) performed by Eliza High MDat [facility] MA[facility] Significant Family History: No family [...] 0 Taking ??? 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 Participation in an outpatient cardiac rehabilitation program at [facility] was discussed. Patient declines a referral to [...] Review Outcome: Ongoing (Interventions Implemented as Appropriate) 12/31/1825412/31/18 0700 Coping/Psychosocial Plan Of Care Reviewed With [...] Handling Outcome: Ongoing (Interventions Implemented as Appropriate) 12/30/18202912/31/1825412/31/18 1950 Daily Care Interventions Self-Care Promotion -- independence encouraged -- Margarito Fall Risk History of Falling -- -- [...] of Care Management Initial Assessment Jennifer Inman, RN reviewed record and discussed patient with Care [...] Other: Primary Care Provider: Luis Dhaliwal MD [phone] Patient/Caregiver Goals of Treatment: Return home when [...] of care planning. Jennifer Inman RN Pager: [phone] * Brief Op Note - Reagan Medina MD - 12/31/2018 11:37 AM EST Preliminary Cardiac Catheterization Procedure Note: Patient Name: Bindu Perla : [id number] MR#: [id number] Case Date: 12/31/2018 Operators: * Reagan Medina [...] Ongoing (Interventions Implemented as Appropriate) 12/31/18 0255 Coping/Psychosocial Plan Of Care Reviewed With patient [...] Overview Goal: Plan of Care Review 12/30/18 3683 Coping/Psychosocial Plan Of Care Reviewed With patient [...] concern regarding ability to sleep well tonight, validation intern aware, heating pad ordered. Encouraged pt to [...] Appeared to rest comfortably between care. C/O 5/10 chronic low back pain. PRN Tylenol given X2 (see MAR). Good effect. VSS. SBA. Will cont to monitor and report w/ changes. PLAN MOVING FORWARD: NPO for laboratory technical specialist today. Q6h trops/AM labs. INDIVIDUALIZED FALL PREVENTION [...] AM EDT Hospital Encounter Non-[place] [phone] Arrived documented as of this encounter Procedures [...] Guevara ? (Age): 1950(68y) Med Rec#: ? [id number] ?Sex: ?M ? Site Loc: ? [facility] ?Ht / Wt: ??178(cm)/89(kg) Pt. Loc: ?Adult Floor ? BSA: ?2.07 Study Date: ?? 01/01/2019 ?Pt. Type: Inpatient Tape: ? Referring: Francisco Javier Whitaker ([id number]) Referring: ROBERTA Reading: Bindu Aragon ([id number]) Size Tester: Lluvia George BA, [facility] Diagnosis: *Chest pain, unspecified (R07.9) Rhythm: ? [...] ? Mid-Inferior ?Hypokinetic ? Mid-Inferoseptal ?Hypokinetic ? Doucette-Septal ? Normal ? Doucette-Anterior ? Normal ? Doucette-Lateral ?Normal ? Doucette-Inferior ? Hypokinetic ? Doucette-Tip ?Normal ? This report has been electronically signed by: Bindu Aragon MD ? 01/01/2019 12:15:50 Images reviewed and interpretation verified [facility] Procedure Note Bindu Aragon MD - 01/01/2019 Procedure: Transthoracic Echocardiogram Patient: MINDA BINDU Guevara (Age): 1950(68y) Med Rec#: [id number] Sex: M Site Loc: [facility] Ht / Wt: 178(cm)/89(kg) Pt. Loc: Adult Floor BSA: 2.07 Study Date: 01/01/2019 Pt. Type: Inpatient Tape: Referring: Francisco Javier Whitaker ([id number]) Referring: ROBERTA Reading: Bindu Aragon ([id number]) Size Tester: Lluvia George BA [facility] Diagnosis: *Chest pain, unspecified (R07.9) Rhythm: A-Flutter [...] Normal Mid-Posterolateral Normal Mid-Inferior Hypokinetic Mid-Inferoseptal Hypokinetic Doucette-Septal Normal Doucette-Anterior Normal Doucette-Lateral Normal Doucette-Inferior Hypokinetic Doucette-Tip Normal This report has been electronically signed by: Miriam Aragon MD 01/01/2019 12:15:50 Images reviewed and interpretation verified [facility] Francisco Javier Whitaker MD ECHO ORDERABLES * Differential, Automated (01/01/2019 4:50 AM EST) Neutrophil % 66.0 % [facility] Neutrophil Absolute 5.17 1.70 - 6.10 x10(3)/[facility] LABORATORY Lymph % 22.8 % [facility] Lymphocytes Abs 1.8 0.9 - 3.2 x10(3)/[facility] LABORATORY Monocyte % 9.0 % [facility] Monocyte Abs 0.7 0.3 - 0.9 x10(3)/[facility] LABORATORY Eos % 1.2 % [facility] Eosinophils Abs 0.1 0.0 - 0.4 x10(3)/[facility] LABORATORY Basophil % 0.6 % [facility] Baso Absolute 0.0 0.0 - 0.1 x10(3)/[facility] LABORATORY Immature Gran % 0.40 % [facility] Comment: Immature granulocytes(IG's)percentage and absolute count will include metamyelocytes, myelocytes, and promyelocytes. Blood smears from CBCs yielding IG's will be scanned manually for concordance. If this scan disagrees with the automated IG or if promyelocytes are noted, a manual differential will be performed. Immature Gran Absolute 0.03 0.00 - 0.04 x10(3)/[facility] LABORATORY Blood specimen (specimen) 01/01/2019 4:50 AM EST 01/01/2019 4:57 AM EST Narrative Resulting Agency Comment Spec In Lab Nicholas Gonzalez MD HEMATOLOGY ORDERABLE S [facility] [place] [id number] * (ABNORMAL) Hemogram (01/01/2019 4:50 AM EST) [facility] White Blood Cell 7.8 4.0 - 9.5 x10(3)/[facility] LABOR[facility] Red Blood Cell 4.73 4.58 - 5.54 x10(6)/[facility] LAB[facility]ORY Hemoglobin 12.9(L) 13.7 - 16.5 gm/dL [facility] Hematocrit 39.0(L) 40.5 - 48.5 % [facility] Mean Cell Volume 82.5(L) 82.9 - 93.1 fL [facility] Mean Cell Hemoglobin 27.3(L) 27.5 - 32.1 pg [facility] Mean Cell Hemoglobin Concentration 33.1 32.0 - 35.7 gm/dL [facility] Platelet 211 145 - 357 x10(3)/[facility] LABORATORY RDW Standard Deviation 41.1 36.0 - 45.0 [facility] LABORATORY RDW coefficient of variation 13.8 11.4 - 13.8 % [facility] Mean Platelet Volume 10.7 7.6 - 12.9 [facility] LABORATORY NRBC% auto 0.0 % [facility] NRBC Absolute 0.000 0.000 - 0.000 x10(3)/[facility] LAB[facility] Blood specimen (specimen) 01/01/2019 4:50 AM EST 01/01/2019 4:57 AM EST Narrative Resulting Agency Comment Spec In Lab Nicholas Gonzalez MD HEMATOLOGY ORDERABLE S [facility] [place] [address] * (ABNORMAL) Basic Metabolic Panel (non-fasting) (01/01/2019 4:50 AM EST) [facility] Glucose 112 65 - 199 mg/dL [facility] Comment:Diabetes: >=200 mg/d L plus symptoms Blood Urea Nitrogen 19 10 - 20 mg/dL [facility] Creatinine 0.84 0.80 - 1.50 mg/dL [facility] Sodium 144 135 - 145 mmol/L [facility] Potassium 3.7 3.5 - 5.0 mmol/L [facility] Comment: Please note: ??Patients with WBC >100,000 may have falsely elevated Potassium levels. ??For accurate Potassium quantification in these patients send serum separator tube (gold top) for subsequent determinations. ??Contact the Clinical Chemistry Laboratory if there are any questions. Chloride 110(H) 98 - 107 mmol/L [facility] Carbon Dioxide 19(L) 22 - 31 mmol/L [facility] Anion Gap 15 5 - 15 mmol/L [facility] Calcium 9.3 8.5 - 10.5 mg/dL [facility] Est Glomerular Filtration Rate 89 >=60 mL/min/1. 73 m?? [facility] Comment: The eGFR was calculated using the CKD-EPI equation. As with all creatinine based estimates of kidney function, eGFR values calculated with the CKD-EPI equation are not accurate in patients with acute kidney failure, extremes of body mass or the acutely ill. [email or web address]/[facility] eGFR 103 >=60 mL/min/1. 73 m?? [facility] Comment: The eGFR was calculated using the CKD-EPI equation. As with all creatinine based estimates of kidney function, eGFR values calculated with the CKD-EPI equation are not accurate in patients with acute kidney failure, extremes of body mass or the acutely ill. [email or web address] Blood specimen (specimen) 01/01/2019 4:50 AM EST 01/01/2019 4:57 AM EST Narrative Resulting Agency Comment Spec In Lab Gurvinder Melnedez MD CHEMISTRY ORDERABLES [facility] [place] [address] * EKG 12 Lead (12/31/2018 11:55 AM EST) Ventricular rate 75 BPM MUSE SYSTEM Atrial Rate 75 BPM MUSE SYSTEM P-R Interval 198 ms MUSE SYSTEM QRS Duration 142 ms MUSE SYSTEM Q-T Interval 442 ms MUSE SYSTEM QTC Calculated (Bezet) 493 ms MUSE SYSTEM Calculated P [place] 58 degrees MUSE SYSTEM Calculated R [place] -94 degrees MUSE SYSTEM Calculated T [place] 89 degrees MUSE SYSTEM INTERPRETATION Normal sinus rhythm Non-specific intra-ventricu lar conduction block Anterolateral infarct (cited on or before 28-DEC-2018) Abnormal ECG When compared with ECG of 30-DEC-2018 07:36, No significant change was found Confirmed by MD CARLOTA, ABDELRAHMAN ([id number]) on 12/31/2018 6:07:14 PM MUSE SYSTEM 12/31/2018 11:5 5 AM EST 12/31/2018 6:07 PM EST Reagan Medina MD ECG ORDERABLES MUSE SYSTEM * CARDIAC CATHETERIZATION (12/31/2018 11:32 AM EST) Anatomical Region Laterality Modality Other Narrative 01/10/2019 4:09 PM EST ?[facility] ? Cardiac Catheterization/Intervention Report ? Patient Name: MINDA, BINDU Guevara. ? Procedure Date: 12/31/2018 ? A #: [id number] ? Primary Physician: Reagan Medina ? Case #: [id number] ? File Name: [id number] ? Catheterization Order Number: [id number] ? [facility] ? Final Report [place], [place] ? Patient Name: ? JASON. MINDA ? ID#: ?[id number] ? : ?1950 ? Procedure Date: ? December 31, 2018 ?Case #: ? [id number] ? Room: ? 5 ? Case Physician: [...] was ?designated as ASA Class III. The [facility] clinical frailty scale is 4: ?Vulnerable. ? [...] procedure was Urgent. The indication for ?the laboratory technical specialist visit is new onset angina less than [...] Procedure Note Reagan Medina MD - 10/24/2019 [facility] Cardiac Catheterization/Intervention Report Patient Name: BINDU PERLA Procedure Date: 12/31/2018 A #: [id number] Primary Physician: Reagan Medina Case #: [id number] File Name: [id number] Catheterization Order Number: [id number] [facility] FinalReport [place], [place] Patient Name: BINDU PERLA ID#:[id number] :1950 Procedure Date: December 31, 2018 Case [...] was designated as ASA Class III. The [facility] clinical frailty scale is 4: Vulnerable. Diagnostic Tests: Prior Coronary Angiography: LV ejection fraction within 6 months is 45%. Electrocardiography: EKG was assessed by ECG. EKG was Abnormal. EKG showed other abnormality. Medications Prior to Procedure: ASA, Beta Sis and Calcium Channel Blocking Agent. Indications for Diagnostic Cath: The priority of the diagnostic procedure was Urgent. The indicationfor the laboratory technical specialist visit is new onset angina less than [...] The lesion was predilated with a 2.00mm YAKDEAC10 MM balloon with a maximum inflation pressure [...] 8:44 AM EST) Neutrophil % 67.7 % [facility] Neutrophil Absolute 4.76 1.70 - 6.10 x10(3)/[facility] LABORATORY Lymph % 22.2 % [facility] Lymphocytes Abs 1.6 0.9 - 3.2 x10(3)/[facility] LABORATORY Monocyte % 8.0 % [facility] Monocyte Abs 0.6 0.3 - 0.9 x10(3)/[facility] LABORATORY Eos % 1.0 % [facility] Eosinophils Abs 0.1 0.0 - 0.4 x10(3)/[facility] LABORATORY Basophil % 0.7 % [facility] Baso Absolute 0.0 0.0 - 0.1 x10(3)/[facility] LABORATORY Immature Gran % 0.40 % [facility] Comment: Immature granulocytes(IG's)percentage and absolute count will include metamyelocytes, myelocytes, and promyelocytes. Blood smears from CBCs yielding IG's will be scanned manually for concordance. If this scan disagrees with the automated IG or if promyelocytes are noted, a manual differential will be performed. Immature Gran Absolute 0.03 0.00 - 0.04 x10(3)/[facility] LABORATORY Blood specimen (specimen) 12/31/2018 8:44 AM EST 12/31/2018 9:00 AM EST Narrative Resulting Agency Comment Spec In Lab Nicholas Gonzalez MD HEMATOLOGY ORDERABLE S [facility] [place] [address] * (ABNORMAL) Hemogram (12/31/2018 8:44 AM EST) White Blood Cell 7.0 4.0 - 9.5 x10(3)/mc L [facility] Red Blood Cell 4.95 4.58 - 5.54 x10(6)/mc L [facility] Hemoglobin 13.5(L) 13.7 - 16.5 gm/dL [facility] Hematocrit 40.6 40.5 - 48.5 % [facility] Mean Cell Volume 82.0(L) 82.9 - 93.1 fL [facility] Mean Cell Hemoglobin 27.3(L) 27.5 - 32.1 pg [facility] Mean Cell Hemoglobin Concentration 33.3 32.0 - 35.7 gm/dL [facility] Platelet 240 145 - 357 x10(3)/mc L [facility] RDW Standard Deviation 40.7 36.0 - 45.0 [facility] LABORATORY RDW coefficient of variation 13.8 11.4 - 13.8 % [facility] Mean Platelet Volume 11.0 7.6 - 12.9 [facility] LABORATORY NRBC% auto 0.0 % [facility] NRBC Absolute 0.000 0.000 - 0.000 x10(3)/mc L [facility] Blood specimen (specimen) 12/31/2018 8:44 AM EST 12/31/2018 9:00 AM EST Narrative Resulting Agency Comment Spec In Lab Nicholas Gonzalez MD HEMATOLOGY ORDERABLE S Performing Organization Address City/State/[facility] Co de Phone Number [facility] [place] [address] * (ABNORMAL) Basic Metabolic Panel (non-fasting) (12/31/2018 8:44 AM EST) Glucose 127 65 - 199 mg/dL [facility] Comment:Diabetes: >=200 mg/d L plus symptoms Blood Urea Nitrogen 23(H) 10 - 20 mg/dL [facility] Creatinine 0.89 0.80 - 1.50 mg/dL [facility] Sodium 143 135 - 145 mmol/L [facility] Potassium 3.9 3.5 - 5.0 mmol/L [facility] Comment: Please note: ??Patients with WBC >100,000 may have falsely elevated Potassium levels. ??For accurate Potassium quantification in these patients send serum separator tube (gold top) for subsequent determinations. ??Contact the Clinical Chemistry Laboratory if there are any questions. Chloride 108(H) 98 - 107 mmol/L [facility] Carbon Dioxide 21(L) 22 - 31 mmol/L [facility] Anion Gap 14 5 - 15 mmol/L [facility] Calcium 9.1 8.5 - 10.5 mg/dL [facility] Est Glomerular Filtration Rate 87 >=60 mL/min/1. 73 m?? [facility] Comment: The eGFR was calculated using the CKD-EPI equation. As with all creatinine based estimates of kidney function, eGFR values calculated with the CKD-EPI equation are not accurate in patients with acute kidney failure, extremes of body mass or the acutely ill. http://SeeToo/[facility] eGFR 100 >=60 mL/min/1. 73 m?? [facility] Comment: The eGFR was calculated using the CKD-EPI equation. As with all creatinine based estimates of kidney function, eGFR values calculated with the CKD-EPI equation are not accurate in patients with acute kidney failure, extremes of body mass or the acutely ill. [email or web address] Blood specimen (specimen) 12/31/2018 8:44 AM EST 12/31/2018 9:00 AM EST Narrative Resulting Agency Comment Spec In Lab Gurvinder Melendez MD CHEMISTRY ORDERABLES [facility] [place] [address] * EKG 12 Lead (12/30/2018 7:36 AM EST) Ventricular rate 83 BPM MUSE SYSTEM Atrial Rate 83 BPM MUSE SYSTEM P-R Interval 208 ms MUSE SYSTEM QRS Duration 134 ms MUSE SYSTEM Q-T Interval 420 ms MUSE SYSTEM QTC Calculated (Bezet) 493 ms MUSE SYSTEM Calculated P [place] 65 degrees MUSE SYSTEM Calculated R [place] -101 degrees MUSE SYSTEM Calculated T [place] 79 degrees MUSE SYSTEM INTERPRETATION Sinus rhythm [...] 4:23 AM EST) Neutrophil % 59.3 % [facility] Neutrophil Absolute 4.56 1.70 - 6.10 x10(3)/[facility] LAB[facility]ATORY Lymph % 29.0 % [facility] Lymphocytes Abs 2.2 0.9 - 3.2 x10(3)/[facility]ORATORY Monocyte % 9.4 % [facility] Monocyte Abs 0.7 0.3 - 0.9 x10(3)/[facility]ORATORY Eos % 1.2 % [facility] Eosinophils Abs 0.1 0.0 - 0.4 x10(3)/[facility]ORATORY Basophil % 0.7 % [facility] Baso Absolute 0.0 0.0 - 0.1 x10(3)/[facility] LABORATORY Immature Gran % 0.40 % [facility] Comment: Immature granulocytes(IG's)percentage and absolute count will include metamyelocytes, myelocytes, and promyelocytes. Blood smears from CBCs yielding IG's will be scanned manually for concordance. If this scan disagrees with the automated IG or if promyelocytes are noted, a manual differential will be performed. Immature Gran Absolute 0.03 0.00 - 0.04 x10(3)/[facility] LABORATORY Blood specimen (specimen) 12/30/2018 4:23 AM EST 12/30/2018 4:34 AM EST Narrative Resulting Agency Comment Spec In Lab Nicholas Gonzalez MD HEMATOLOGY ORDERABLE S Performing Organization Address City/[facility]/ZIP Co de Phone Number [facility] [place] [address] * (ABNORMAL) Hemogram (12/30/2018 4:23 AM EST) White Blood Cell 7.7 4.0 - 9.5 x10(3)/[facility] LAB[facility] Red Blood Cell 5.12 4.58 - 5.54 x10(6)/ L [facility] Hemoglobin 14.0 13.7 - 16.5 gm/dL [facility] Hematocrit 41.9 40.5 - 48.5 % [facility] Mean Cell Volume 81.8(L) 82.9 - 93.1 [facility]ORY Mean Cell Hemoglobin 27.3(L) 27.5 - 32.1 pg [facility] Mean Cell Hemoglobin Concentration 33.4 32.0 - 35.7 gm/dL [facility] Platelet 233 145 - 357 x10(3)/[facility] LABOR[facility]ORY RDW Standard Deviation 40.5 36.0 - 45.0 [facility]ORY RDW coefficient of variation 13.8 11.4 - 13.8 % [facility] Mean Platelet Volume 11.0 7.6 - 12.9 [facility] LABORATORY NRBC% auto 0.0 % [facility] NRBC Absolute 0.000 0.000 - 0.000 x10(3)/[facility] LAB[facility]ORY Blood specimen (specimen) 12/30/2018 4:23 AM EST 12/30/2018 4:34 AM EST Narrative Resulting Agency Comment Spec In Lab Nicholas Gonzalez MD HEMATOLOGY ORDERABLE S [facility] [place] [address] * (ABNORMAL) Basic Metabolic Panel (non-fasting) (12/30/2018 4:23 AM EST) Glucose 124 65 - 199 mg/dL [facility] Comment:Diabetes: >=200 mg/d L plus symptoms Blood Urea Nitrogen 21(H) 10 - 20 mg/dL [facility] Creatinine 1.03 0.80 - 1.50 mg/dL [facility] Sodium 140 135 - 145 mmol/L [facility] Potassium 4.0 3.5 - 5.0 mmol/L [facility] Comment: Please note: ??Patients with WBC >100,000 may have falsely elevated Potassium levels. ??For accurate Potassium quantification in these patients send serum separator tube (gold top) for subsequent determinations. ??Contact the Clinical Chemistry Laboratory if there are any questions. Chloride 105 98 - 107 mmol/L [facility] Carbon Dioxide 22 22 - 31 mmol/L [facility] Anion Gap 13 5 - 15 mmol/L [facility] Calcium 9.6 8.5 - 10.5 mg/dL [facility] Est Glomerular Filtration Rate 73 >=60 mL/min/1. 73 m?? [facility] Comment: The eGFR was calculated using the CKD-EPI equation. As with all creatinine based estimates of kidney function, eGFR values calculated with the CKD-EPI equation are not accurate in patients with acute kidney failure, extremes of body mass or the acutely ill. http://[email or web address] eGFR 85 >=60 mL/min/1. 73 m?? [facility] Comment: The eGFR was calculated using the CKD-EPI equation. As with all creatinine based estimates of kidney function, eGFR values calculated with the CKD-EPI equation are not accurate in patients with acute kidney failure, extremes of body mass or the acutely ill. [email or web address] Blood specimen (specimen) 12/30/2018 4:23 AM EST 12/30/2018 4:34 AM EST Narrative Resulting Agency Comment Spec In Lab Gurvinder Melendez MD CHEMISTRY ORDERABLES [facility] [place] [address] * Troponin (12/29/2018 6:43 AM EST) [facility] Troponin-T <0.01 0.00 - 0.00 ng/mL [facility] Comment: The 99th percentile for Troponin T is less than 0.01 ng/mL, any detectable cTnT concentration using this assay should be considered elevated. According to the third universal definition of myocardial infarction the following criteria with a clinical presentation consistent with acute myocardial ischemia meets the diagnosis for a myocardial infarction (CO). Detection of a rise and/or fall of cTnT, with at least one value greater than the 99th percentile (> or = 0.01) and with at least one of the following ?? Symptoms of ischemia ?? New or presumed new significant TQ-bloqqeh-E wave (ST-T) changes or new left bundle [...] additional sample may be indicated. Reference: Third [place] Definition of Myocardial Infarction. Journal of the [place] [employer] 2012;60:1581-98 Blood specimen (specimen) 12/29/2018 6:43 AM EST 12/29/2018 7:23 AM EST Narrative Resulting Agency Comment Spec In Lab Francisco Javier Whitaker MD CHEMISTRY ORDERABL ES [facility] [place] [address] * Differential, Automated (12/29/2018 6:43 AM EST) [facility] Neutrophil % 67.0 % [facility] Neutrophil Absolute 5.74 1.70 - 6.10 x10(3)/[facility] LABORATORY Lymph % 21.5 % [facility] Lymphocytes Abs 1.8 0.9 - 3.2 x10(3)/[facility]ORATORY Monocyte % 9.2 % [facility] Monocyte Abs 0.8 0.3 - 0.9 x10(3)/[facility]ORATORY Eos % 1.1 % [facility] Eosinophils Abs 0.1 0.0 - 0.4 x10(3)/[facility]ORY Basophil % 0.7 % [facility] Baso Absolute 0.1 0.0 - 0.1 x10(3)/[facility] LABORATORY Immature Gran % 0.50 % [facility] Comment: Immature granulocytes(IG's)percentage and absolute count will include metamyelocytes, myelocytes, and promyelocytes. Blood smears from CBCs yielding IG's will be scanned manually for concordance. If this scan disagrees with the automated IG or if promyelocytes are noted, a manual differential will be performed. Immature Gran Absolute 0.04 0.00 - 0.04 x10(3)/[facility]ORY Blood specimen (specimen) 12/29/2018 6:43 AM EST 12/29/2018 7:23 AM EST Narrative Resulting Agency Comment Spec In Lab Nicholas Gonzalez MD HEMATOLOGY ORDERABLE S [facility] [place] [address] * (ABNORMAL) Hemogram (12/29/2018 6:43 AM EST) White Blood Cell 8.6 4.0 - 9.5 x10(3)/mc L [facility] Red Blood Cell 5.10 4.58 - 5.54 x10(6)/mc L [facility] Hemoglobin 13.8 13.7 - 16.5 gm/dL [facility] Hematocrit 42.7 40.5 - 48.5 % [facility] Mean Cell Volume 83.7 82.9 - 93.1 fL [facility] Mean Cell Hemoglobin 27.1(L) 27.5 - 32.1 pg [facility] Mean Cell Hemoglobin Concentration 32.3 32.0 - 35.7 gm/dL [facility] Platelet 224 145 - 357 x10(3)/mc L [facility] RDW Standard Deviation 41.9 36.0 - 45.0 fL [facility] RDW coefficient of variation 13.8 11.4 - 13.8 % [facility] Mean Platelet Volume 11.3 7.6 - 12.9 fL [facility] NRBC% auto 0.0 % [facility] NRBC Absolute 0.000 0.000 - 0.000 x10(3)/mc L [facility] Blood specimen (specimen) 12/29/2018 6:43 AM EST 12/29/2018 7:23 AM EST Narrative Resulting Agency Comment Spec In Lab Nicholas Gonzalez MD HEMATOLOGY ORDERABLE S [facility] [place] [address] * (ABNORMAL) Basic Metabolic Panel (non-fasting) (12/29/2018 6:43 AM EST) Glucose 133 65 - 199 mg/dL [facility] Comment:Diabetes: >=200 mg/d L plus symptoms Blood Urea Nitrogen 25(H) 10 - 20 mg/dL [facility] Creatinine 0.90 0.80 - 1.50 mg/dL [facility] Sodium 139 135 - 145 mmol/L [facility] Potassium 3.9 3.5 - 5.0 mmol/L [facility] Comment: Please note: ??Patients with WBC >100,000 may have falsely elevated Potassium levels. ??For accurate Potassium quantification in these patients send serum separator tube (gold top) for subsequent determinations. ??Contact the Clinical Chemistry Laboratory if there are any questions. Chloride 104 98 - 107 mmol/L [facility] Carbon Dioxide 20(L) 22 - 31 mmol/L [facility] Anion Gap 15 5 - 15 mmol/L [facility] Calcium 9.2 8.5 - 10.5 mg/dL [facility] Est Glomerular Filtration Rate 86 >=60 mL/min/1. 73 m?? [facility] Comment: The eGFR was calculated using the CKD-EPI equation. As with all creatinine based estimates of kidney function, eGFR values calculated with the CKD-EPI equation are not accurate in patients with acute kidney failure, extremes of body mass or the acutely ill. [email or web address] eGFR 100 >=60 mL/min/1. 73 m?? [facility] Comment: The eGFR was calculated using the CKD-EPI equation. As with all creatinine based estimates of kidney function, eGFR values calculated with the CKD-EPI equation are not accurate in patients with acute kidney failure, extremes of body mass or the acutely ill. [email or web address] Blood specimen (specimen) 12/29/2018 6:43 AM EST 12/29/2018 7:23 AM EST Narrative Resulting Agency Comment Spec In Lab Gurvinder Melendez MD CHEMISTRY ORDERABLES [facility] [place] [address] * Troponin (12/29/2018 12:27 AM EST) Troponin-T <0.01 0.00 - 0.00 ng/mL [facility] Comment: The 99th percentile for Troponin T is less than 0.01 ng/mL, any detectable cTnT concentration using this assay should be considered elevated. According to the third universal definition of myocardial infarction the following criteria with a clinical presentation consistent with acute myocardial ischemia meets the diagnosis for a myocardial infarction (CO). Detection of a rise and/or fall of cTnT, with at least one value greater than the 99th percentile (> or = 0.01) and with at least one of the following ?? Symptoms of ischemia ?? New or presumed new significant GL-nwtbwgo-K wave (ST-T) changes or new left bundle [...] additional sample may be indicated. Reference: Third [place] Definition of Myocardial Infarction. Journal of the [place] [employer] 2012;60:1581-98 Blood specimen (specimen) 12/29/2018 12:27 AM EST 12/29/2018 12:48 AM EST Narrative Resulting Agency Comment Spec In Lab Francisco Javier Whitaker MD CHEMISTRY ORDERABL ES [facility] [place] [address] * Troponin (12/28/2018 5:30 PM EST) Troponin-T <0.01 0.00 - 0.00 ng/mL [facility] Comment: The 99th percentile for Troponin T is less than 0.01 ng/mL, any detectable cTnT concentration using this assay should be considered elevated. According to the third universal definition of myocardial infarction the following criteria with a clinical presentation consistent with acute myocardial ischemia meets the diagnosis for a myocardial infarction (CO). Detection of a rise and/or fall of cTnT, with at least one value greater than the 99th percentile (> or = 0.01) and with at least one of the following ?? Symptoms of ischemia ?? New or presumed new significant QU-rhccdec-Y wave (ST-T) changes or new left bundle [...] additional sample may be indicated. Reference: Third [place] Definition of Myocardial Infarction. Journal of the [place] [employer] 2012;60:1581-98 Blood specimen (specimen) 12/28/2018 5:30 PM EST 12/28/2018 5:42 PM EST Narrative Resulting Agency Comment Spec In Lab Francisco Javier Whitaker MD CHEMISTRY ORDERABL ES [facility] [place] [address] * EKG 12 Lead (12/28/2018 4:47 PM EST) Ventricular rate 75 BPM MUSE SYSTEM Atrial Rate 75 BPM MUSE SYSTEM P-R Interval 196 ms MUSE SYSTEM QRS Duration 132 ms MUSE SYSTEM Q-T Interval 432 ms MUSE SYSTEM QTC Calculated (Bezet) 482 ms MUSE SYSTEM Calculated P [place] 62 degrees MUSE SYSTEM Calculated R [place] -85 degrees MUSE SYSTEM Calculated T [place] 92 degrees MUSE SYSTEM INTERPRETATION Sinus rhythm Occasional Premature ventricular complexes Possible Left atrial enlargement Left axis deviation Non-specific intra-ventricul ar conduction block Anterior infarct Abnormal ECG When compared with ECG of 29-JAN-1993 16:07, Premature ventricular complexes are now Present Questionable change in QRS duration Minimal criteria for Anteroseptal infarct are now Present Confirmed by MD Sherman, Francisco Javier Barney ([id number]) on 12/30/2018 3:24:11 PM MUSE SYSTEM 12/28/2018 4:47 PM EST 12/30/2018 3:24 PM EST Francisco Javier Whitaker MD ECG ORDERABLES Performing Organization Address [facility] Co de Phone Number MUSE SYSTEM documented in this encounter Visit Diagnoses Not on filedocumented in this encounter Admitting Diagnoses Diagnosis Chest [...] Given 12/30/2018 4:29 PM EST 650 mg alum-mag hydroxide-simeth (MAALOX) 200-200-20 mg/5 mL oral suspension ONCE PRN, Starting on Mon12/31/18 at 1134, Until Mon12/31/18 at 1142, Cath (Intra-Procedure), Routine Given 12/31/2018 11:34 AM EST 10 mLs amLODIPine (NORVASC) tablet 10 mg 10 mg, [...] Unit), Routine Given 01/01/2019 9:28 AM EST 7 5 mg clopidogrel (PLAVIX) tablet ONCE PRN, Starting on Mon12/31/18 at 1059, Until Mon12/31/18 at 1249, Intra-Operative (Intra-Procedure), Routine Given 12/31/2018 10:59 AM EST 600 mg enoxaparin (LOVENOX) injection 40 mg 40 mg, Subcutaneous, NIGHTLY, First dose on Mon12/28/18 at 2100, Until Discontinued, Routine Given 12/31/2018 8:38 PM EST 40 mg Given 12/30/2018 8:47 PM EST 40 mg Given 12/29/2018 8:37 PM EST 40 mg fentaNYL 50 mcg/mL multi-dose injection ONCE PRN, Starting on Mon12/31/18 at 1003, Until Mon12/31/18 at 1142, Cath (Intra-Procedure), Routine Given 12/31/2018 10:48 AM EST 25 mcg Given 12/31/2018 10:18 AM EST 25 mcg Given 12/31/2018 10:03 AM EST 25 mcg fluticasone (FLONASE) 50 mcg/actuation nasal spray 1 spray 1 spray, Each Nare, DAILY, First dose on 12/29/18 at 0900, Until Discontinued, Routine Given 01/01/2019 9:26 AM EST 1 spray Given 12/31/2018 8:06 AM EST 1 spray Given 12/30/2018 9:27 AM EST 1 spray heparin (porcine) injection ONCE PRN, Starting on Mon12/31/18 at 1031, Until Mon12/31/18 at 1142, Cath (Intra-Procedure), Routine Given 12/31/2018 11:00 AM EST 3,500 Units Given 12/31/2018 10:31 AM EST 5,000 Units lisinopril (PRINIVIL;ZESTRIL) tablet 20 mg 20 mg, [...] Given 12/30/2018 9:25 AM EST 50 mg midazolam (PF) (VERSED) multi-dose injection ONCE PRN, Starting on Mon12/31/18 at 1003, Until Mon12/31/18 at 1142, Cath (Intra-Procedure), Routine Given 12/31/2018 10:18 AM EST 1 mg Given 12/31/2018 10:03 AM EST 1 mg nitroGLYcerin 100 mcg/mL intracoronary dilution ONCE PRN, Starting on Mon12/31/18 at 1029, Until Mon12/31/18 at 1142, Cath (Intra-Procedure), Routine Given 12/31/2018 11:18 AM EST 200 mcg Given 12/31/2018 10:29 AM EST 200 mcg pantoprazole (PROTONIX) tablet 40 mg 40 mg, Oral, DAILY, First dose on Mon12/28/18 at 2000, Until Discontinued Given 01/01/2019 9:28 AM EST 40 mg Given 12/31/2018 8:07 AM EST 40 mg Given 12/30/2018 9:25 AM EST 40 mg sodium chloride 0.9 % flush 5 mL 5 mL, Intravenous, 2 TIMES DAILY, First dose on Mon12/28/18 at 2100, Until Discontinued, Routine Given 01/01/2019 9:30 AM EST 5 mLs Given 12/31/2018 8:38 PM EST 5 mLs Given 12/31/2018 9:00 AM EST 5 mLs verapamil (ISOPTIN) injection ONCE PRN, Starting on Mon12/31/18 at 1029, Until Mon12/31/18 at 1138, Administer over 2 Minutes, Cath (Intra-Procedure) Given 12/31/2018 10:29 AM EST 2.5 mg documented in this encounter Active and Recently Administered Medications Times are shown in EST. Scheduled Medication Order 12/30/2018 12/31/2018 01/01/2019 amLODIPine (NORVASC) tablet 10 mg 10 mg, Oral, DAILY, First dose on 12/29/18 at 0900, Until Discontinued, Routine 0925 (Given - Provider: Amanda Vang RN) 0807 (Given - Provider: Wade Hernández, TO)0946 ([facility] Hold - Provider: Admin Adt - Reason: Transfer to a Procedural area)1249 ([facility] Unhold - Provider: Admin Adt) 0928 (Given - Provider: Jenna Smith, RN) aspirin EC tablet 81 mg 81 mg, Oral, DAILY, First dose on 12/29/18 at 0900, Until Discontinued, Routine 0925 (Given - Provider: Amanda Vang RN) 0807 (Given - Provider: Wade Hernández, RN)0946 ([facility] Hold - Provider: Admin Adt - Reason: Transfer to a Procedural area)1249 ([facility] Unhold - Provider: Admin Adt) 0928 (Given - Provider: Jenna Smith, RN) atorvastatin (LIPITOR) tablet 80 mg 80 mg, Oral, EVERY EVENING, First dose on Mon12/31/18 at 1700, Until Discontinued, Routine 1632 (Given - Provider: Cynthia Stiles RN) clopidogrel (PLAVIX) tablet 75 mg 75 mg, Oral, DAILY, First dose on Tu01/01/19 at 0900, Until Discontinued, Recovery (Recovery-Hospital Unit), Routine 09 (Given - Provider: Jenna Smith, TO) enoxaparin (LOVENOX) injection 40 mg 40 mg, [...] on 12/29/18 at 0900, Until Discontinued, Routine 09 (Given - Provider: Amanda Vang RN) 0806 (Given - Provider: Wade Hernández, RN)0946 ([facility] Hold - Provider: Admin Adt - Reason: Transfer to a Procedural area)1249 ([facility] Unhold - Provider: Admin Adt) 0926 (Given - Provider: Jenna Smith, TO) lisinopril (PRINIVIL;ZESTRIL) tablet 20 mg 20 mg, Oral, DAILY, First dose on 12/29/18 at 0900, Until Discontinued, Routine 0925 (Given - Provider: Amanda Vang RN) 0806 (Given - Provider: Wade Hernández, RN)0946 ([facility] Hold - Provider: Admin Adt - Reason: Transfer to a Procedural area)1249 ([facility] Unhold - Provider: Admin Adt) 0928 (Given - Provider: Jenna Smith, TO) metoprolol succinate (TOPROL-XL) XL tablet 50 mg 50 mg, Oral, DAILY, First dose on 12/29/18 at 0900, Until Discontinued, DO NOT CRUSH OR OPEN, Routine 0925 (Given - Provider: Amanda Vang RN) 0807 (Given - Provider: Wade Hernández, TO)0946 ([facility] Hold - Provider: Admin Adt - Reason: Transfer to a Procedural area)1249 ([facility] Unhold - Provider: Admin Adt) 0928 (Given - Provider: Jenna Smith, TO) pantoprazole (PROTONIX) tablet 40 mg 40 mg, Oral, DAILY, First dose on Mon12/28/18 at 2000, Until Discontinued 0925 (Given - Provider: Amanda Vang RN) [...] 0600, Routine 0629 (Given - Provider: Ashlyn Prado RN) sodium chloride 0.9 % flush 5 mL 5 mL, Intravenous, 2 TIMES DAILY, First dose on Mon12/28/18 at 2100, Until Discontinued, Routine 0929 (Given - Provider: Amanda Vang RN)205 (Given - Provider: Calvin Dubois RN) 0900 (Given - Provider: Wade Hernández, TO)0946 ([facility] Hold - Provider: Admin Adt - Reason: Transfer to a Procedural area)1249 ([facility] Unhold - Provider: Admin Adt)2037 (Given - Provider: Ashlyn Prado RN) 0930 (Given - Provider: Jenna Smith, TO) [...] - Reason: Transfer to a Procedural area)1249 ([facility] Unhold - Provider: Admin Adt)2037 (Given - [...] RN)1100 (Given - Provider: Susan De La Cruz, TO) lidocaine (XYLOCAINE) 10 mg/mL (1 %) injection 3 mg 3 mg (0.3 mL), Subcutaneous, ONCE PRN, 1 dose, Starting on Mon12/28/18 at 1828, Until Mon01/01/19 at 1623, for discomfort with PIV insertion, Routine 0946 ([facility] Hold - Provider: Admin Adt - Reason: Transfer to a Procedural area)1249 ([facility] Unhold - Provider: Admin Adt) midazolam (PF) [...] last 24 to 72 hours., Routine 0946 ([facility] Hold - Provider: Admin Adt - Reason: Transfer to a Procedural area)1249 ([facility] Unhold - Provider: Admin Adt) nitroGLYcerin 100 [...] provided on this medication record., Routine 0946 ([facility] Hold - Provider: Admin Adt - Reason: Transfer to a Procedural area)1249 ([facility] Unhold - Provider: Admin Adt) verapamil (ISOPTIN) injection (CANCELED) ONCE PRN, Starting on Mon12/31/18 at 1029, Until Mon12/31/18 at 1138, Administer over 2 Minutes, Cath (Intra-Procedure) 1029 (Given - Provider: Reagan Medina MD) documented in this encounter 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
--- OUTSIDE RECORDS SUMMARY | 2024-12-13 01:22 | XMS_ITS | Encounter Summary ---
Author Organization [facility] Address [facility] [place] [address] Care Team Providers Care Director Athletic Name Role Phone Yoko Dhaliwal MD Primary Care Provider Unavaila ble Reason for Visit * Reason Comments Advice Only * Consultation (Routine) - Closed Specialty Diagnoses / Procedures Referred By Contleena t Referred To Contact Hematology and Oncology Diagnoses Iron deficiency anemia, unspecified IRON DEFICIENCY Yoko Dhaliwal MD [address] [place] [address] [place] [address] [facility] [address] [place] [address] Referral ID Status Reason Start Date Expiration Date V isits Requested Visits Authorized [id number] Closed Consult, [facility] PCP Updated and/or Approved 05/20/2019 05/19/2020 1 1 Encounter Details Date Type Department Care Team (Late st Contact Info) Description 06/03/2019 2:15 PM EDT Office Visit [place]ology [place] [address] Dominik Stubbs MD [facility] [address] HEMATOLOGY [place] [address] Jennifer Fraga, TERRITORY REPRESENTATIVE Iron deficiency anemia due to chronic blood loss Social History Tobacco Use Types Packs/Day Years [...] Mass Index 30.2 06/03/2019 2:03 PM EDT documented in this encounter Progress Notes * Dominik Stubbs MD - 06/03/2019 2:15 PM EDT Subjective: Patient ID: Bindu Perla is a 69 y.o. male. HPI The patient is a 69-year-old man referred by Dr. Hemphill for consultation regarding iron deficiency anemia. I have had a chance to review his records both here at [facility] and the ones provided by Dr. Hemphill. He did have a history of a GI bleed last year and became anemic. He received red cell transfusionsacutely and then iron infusions afterwards and he did normalize his hemoglobin. This year he again developed anemia with a ferritin of 14. He has started on iron infusions and feels like he is improving. Of note he did have a GI work-up which did not reveal a source of blood loss. He did have stents placed and is currently on 2 blood thinners. He has not seen active blood loss. He is scheduled for a colonoscopy but it may need to be delayed because he is not supposed to stop his blood thinners. I am unclear as to how much IV iron he is currently receiving as those records were not provided tous. In review of his blood counts from last year he was anemic but normalized his hemoglobin after ironadministration. His white count and platelet count were essentially normal. Patient Active Problem List Diagnosis Code ??? Foreign body in small intestine T18.3XXA ??? Angina pectoris I20.9 ??? Essential hypertension I10 ??? HLD (hyperlipidemia) E78.5 ??? Gastroesophageal reflux K21.9 ??? GIB (gastrointestinal bleeding), history of K92.2 ??? Typical atrial flutter I48.3 ??? Chest pain R07.9 ??? Unstable angina I20.0 Current Outpatient Medications: ??? traMADol (ULTRAM) 50 mg Tablet, , Disp: , Rfl: ??? albuterol 90 mcg/actuation HFA Aerosol Inhaler, Inhale 2 puffs into the lungs Every 6 hours as needed., Disp: , Rfl: ??? UNABLE TO FIND, Besylate 10 mg daily, Disp: , Rfl: ??? ELIQUIS 5 mg Tablet, , Disp: , Rfl: ??? aspirin 81 mg Tablet, Delayed Release (E.C.), Take 1 tablet by mouth daily., Disp: 30 tablet, Rfl: 3 ??? atorvastatin (LIPITOR) 80 mg Tablet, Take 1 tablet by mouth every evening., Disp: 90 tablet, Rfl: 3 ??? clopidogrel (PLAVIX) 75 mg Tablet, Take 1 tablet by mouth daily., Disp: 90 tablet, Rfl: 3 ??? amLODIPine (NORVASC) 10 mg Tablet, Take 10 mg by mouth daily., Disp: , Rfl: ??? pediatric multivitamin with iron Tablet, Chewable, Take 1 tablet by mouth daily., Disp: , Rfl: ??? acetaminophen-codeine (TYLENOL #3) 300-30 mg Tablet, Take 2 tablets by mouth every 6 hours as needed for Pain., Disp: 40 tablet, Rfl: 0 ??? esomeprazole (NEXIUM) 40 mg Capsule, Delayed Release(E.C.), TAKE ONE CAPSULE BY MOUTH EVERY DAY, Disp: , Rfl: 3 ??? fluticasone (FLONASE) 50 mcg/actuation [place], Suspension, USE 2 SPRAYS NASALLY DAILY, Disp: , Rfl: 3 ??? metoprolol succinate (TOPROL-XL) 50 mg Tablet Sustained Release 24 hr, TAKE ONE TABLET BY MOUTHAT BEDTIME, Disp: , Rfl: 3 ??? lisinopril (PRINIVIL;ZESTRIL) 20 mg Tablet, Take 20 mg by mouth daily., Disp: , Rfl: ??? CIS Free Text Med - Albuterol, 2 Puff(s), Inh, Four times daily PRN, Disp: , Rfl: ??? nitroGLYcerin (NITROSTAT) 0.4 mg Tablet, Sublingual, Place 1 tablet under the tongue every 5 minutes as needed for Chest pain. (Patient not taking: Reported on 06/03/2019), Disp: 90 tablet, Rfl: 12 ??? polyethylene glycol (MIRALAX) 17 gram Powder in Packet, Take 17 g by mouth daily., Disp: , Rfl: ??? docusate sodium (COLACE) 100 mg Capsule, TAKE ONE CAPSULE BY MOUTH TWICE A DAY, Disp: , Rfl: 0 ??? SENNA LAXATIVE 8.6 mg Tablet, TAKE 1 TABLET BY MOUTH AT BEDTIME, Disp: , Rfl: 0 Allergies Allergen Reactions ??? Influenza Virus Vaccine Bivalent Anaphylaxis Social History Socioeconomic History ??? Marital status: Spouse name: Not on file ??? Number of children: Not on file ??? Years of education: Not on file ??? Highest education level: Not on file Occupational History ??? Not on file Social Needs ??? Financial resource strain: Not on file ??? Food insecurity: Worry: Not on file Inability: Not on file ??? Transportation needs: Medical: Not on file Non-medical: Not on file Tobacco Use ??? Smoking status: Former Smoker Types: Cigarettes Last attempt to quit: 07/18/1983 Years since quittin.9 ??? Smokeless tobacco: Never Used Substance and Sexual Activity ??? Alcohol use: Yes Comment: social ??? Drug use: No ??? Sexual activity: Not on file Lifestyle ??? Physical activity: Days per week: Not on file Minutes per session: Not on file ??? Stress: Not on file Relationships ??? Social connections: Talks on phone: Not on file Gets together: Not on file Attends alevism service: Not on file Active member of club or organization: Not on file Attends meetings of clubs or organizations: Not on file Relationship status: Not on file ??? Intimate partner violence: Fear of current or ex partner: Not on file Emotionally abused: Not on file Physically abused: Not on file Forced sexual activity: Not on file Other Topics Concern ??? Not on file Social History Narrative ??? Not on file No family history on file. Review of Systems Constitutional: Positive for fatigue. Negative for fever and unexpected weight change. HENT: Negative for nosebleeds. Respiratory: Negative for cough and shortness of breath. Cardiovascular: Negative for chest pain and palpitations. Gastrointestinal: Negative for abdominal pain and diarrhea. Musculoskeletal: Negative for back pain. Skin: Negative for rash. Neurological: Negative for speech difficulty. Hematological: Negative for adenopathy. Does not bruise/bleed easily. All other systems reviewed and are negative. Objective: Physical Exam Constitutional: He is oriented to person, place, and time. He appears well- nourished. No distress. HENT: Head: Normocephalic. Eyes: Conjunctivae are normal. No scleral icterus. Cardiovascular: Normal rate and regular rhythm. Pulmonary/Chest: Effort normal. Musculoskeletal: He exhibits deformity (L AKA). He exhibits no edema. Neurological: He is oriented to person, place, and time. Skin: No rash noted. Psychiatric: He has a normal mood and affect. Results for BINDU PERLA J ( ) as of 06/04/2019 07:54 Ref. Range 07/24/2018 05:33 07/25/2018 04:42 08/13/2018 14:42 12/29/2018 06:43 12/30/2018 04:23 12/31/2018 08:44 01/01/2019 04:50 WBC Latest Ref Range: 4.0 - 9.5 x10(3)/mcL 10.8 (H) 8.7 7.1 8.6 7.7 7.0 7.8 Hemoglobin Latest Ref Range: 13.7 - 16.5 gm/dL 9.1 (L) 9.0 (L) 11.0 (L) 13.8 14.0 13.5 (L) 12.9 (L) Hematocrit Latest Ref Range: 40.5 - 48.5 % 29.6 (L) 29.9 (L) 36.7 (L) 42.7 41.9 40.6 39.0 (L) Platelets Latest Ref Range: 145 - 357 x10(3)/mcL 288 304 286 224 233 240 211 Assessment and Plan: This 69-year-old man has a pure iron deficiency anemia. I do not see any other contributing factorsto his recurrent anemia. His white count and platelet count have remained normal and when he was provided adequate iron he completely normalized his hemoglobin. I suspect that he does have intermittent GI blood loss which is likely worsened over the last 6 months since he has had his stents placed and has required anticoagulation. I agree with intravenous iron. He will likely need 4329-3484 total milligrams of intravenous iron to normalize his hemoglobin and provide adequate storage iron as reflected by a ferritin. I would recommend continuing his iron infusions until he normalizes his hemoglobin and gets his ferritin up around 100 or so. Subsequent follow-up should include CBCs with a ferritin and if his ferritin gets below 30 he should be treated again with more intravenous iron. The question is whether his losses can be stopped. It is not uncommon for patients with GI blood loss to have intermittent bleeding and at the time of scopes they do not see any active bleeding. Thisdoes not mean that the GI tract is not the source of the blood loss. My own practice has been to be sure a patient like this does not have a GI malignancy by scoping and then only get more aggressive with scoping if it difficult to keep up with the iron losses and we need to try to cauterize some lesion, typically an AVM, to decrease the losses. If he only needs iron infusions once a year or twice a year it may be reasonable just to keep up with it with intermittent iron infusions until he can get off his blood thinners at which time his losses will probably decrease. I did discuss these issues with the patient and his . I reassured them that I saw no signs of any other issue other than the iron deficiency. I did offer continued follow-up here in the hematology clinic but they are comfortable returning to the primary care doctor. Thank you for allowing me to care for this pleasant gentleman. documented in this encounter Plan of Treatment Upcoming Encounters Date Type Department Care Team (Late st Contact Info) Description 03/08/2025 10:00 AM EDT Hospital Encounter Non[place] [address] Arrived documented as of this encounter Visit Diagnoses Diagnosis Iron deficiency anemia due to chronic blood loss Iron deficiency anemia secondary to blood loss (chronic) documented in this encounter Care Teams Director Athletic Relationship Specialty Start Date End Date Yoko Dhaliwal MD PCP - General Internal Medicine 06/25/18 11/21/24 documented as of this encounter
--- OUTSIDE RECORDS SUMMARY | 2024-12-13 01:22 | XMS_ITS | Encounter Summary ---
[place] [address] Care Team Providers Care Film Historian Name Role Phone Yoko Dhaliwal MD Primary Care Provider Unavaila ble Reason for Visit * Reason Comments Medication Refill Encounter Details Date Type Department Care Team (Late st Contact Info) Description 12/23/2019 Refill Intermediate [place] [phone] Nicholas Lopez DO Social History Tobacco Use Types Packs/Day Years [...] AM EDT Hospital Encounter Non[place] [phone] Arrived documented as of this encounter Visit Diagnoses Not on filedocumented in this encounter Care Teams Film Historian Relationship Specialty Start Date End Date Yoko Dhaliwal MD PCP - General Internal Medicine 06/25/18 11/21/24 documented as of this encounter
--- OUTSIDE RECORDS SUMMARY | 2024-12-13 01:22 | XMS_ITS | Encounter Summary ---
Author Organization [facility] Address [facility] [place] [address] Care Team Providers Care Imaging Account Manager Name Role Phone Yoko Dhaliwal MD Primary Care Provider Unavaila ble Encounter Details Date Type Department Care Team (Late st Contact Info) Description 01/24/2022 Notes Only Cardiology at [address] [phone] Jennifer Michael PA [facility] [place] [address] Social History Tobacco Use Types Packs/Day Years [...] as of this encounter Progress Notes * Jennifer Michael PA - 01/24/2022 10:40 AM EDT Outpatient remote interrogation report: See full report as a linked pdf document Date of transmission: 01/24/22 Device instructional design consultant: [employer] Device type: PPM AP 5% PULP HOUSE SUPERVISOR 7% Battery: 65% Episodes: 1 AF 01/21/22 AT Episode of AT. Anticoagulated with Eliquis RAFAL Stewart 01/24/2022 10:40 AM documented in this encounter Plan of Treatment Upcoming Encounters Date Type Department Care Team (Late st Contact Info) Description 03/08/2025 10:00 AM EDT Hospital Encounter Non-Invasive [place] [phone] Arrived documented as of this encounter Visit Diagnoses Not on filedocumented in this encounter Care Teams Imaging Account Manager Relationship Specialty Start Date End Date Yoko Dhaliwal MD PCP - General Internal Medicine 06/25/18 11/21/24 documented as of this encounter
--- OUTSIDE RECORDS SUMMARY | 2024-12-13 01:23 | XMS_ITS | Encounter Summary ---
Author Organization [place] [id number] Care Team Providers Care Wireless Retail Manager Name Role Phone Yoko Dhaliwal MD Primary Care Provider Elias virk Encounter Details Date Type Department Care Team (Late st Contact Info) Description 07/27/2018 Telephone [place] [address] Maisha José, RN Social History Tobacco Use Types Packs/Day Years [...] encounter Miscellaneous Notes * Telephone Encounter - Maisha Escamilla RN - 07/27/2018 9:59 AM EDT Patient is S/P hospital stay including Hospital Course: Warren Noel is a 68 y.o. male who was admitted on 07/23/2018 for laparoscopic assisted small bowel resection with fluoroscopy. The operative course was uneventful. On POD#1 he wasstarted on sips and chips. When he tolerated that he was advanced to a clear liquid diet later in the day, and on POD# 2 he was advanced to a regular diet. He was changed to oral pain medications andthe I O PSYCHOLOGIST was discontinued on POD# 1. He was voiding small amounts without difficulty, and stated this is his normal. Later in the day of POD# 1 the urine output volume increased appropriately. On POD#1 -2 the dressings were dry and intact and the wounds were benign. He did have a bowel movement prior to discharge and was passing flatus and taking PO without difficulty. Prior to discharge on POD# 2 Warren Noel was afebrile, with stable vital signs. On POD# 2, he was discharged to home in stable condition. Phoned patient to check in after recent hospitalization. Patient is doing very well. Pain is wellcontrolled, eating and drinking, bowel and bladder are at baseline. Afebrile with no S/S of infection. Patient and are aware of the on-call contact information if they need anything over the weekend. documented in this encounter Plan of Treatment Upcoming Encounters Date Type Department Care Team (Late st Contact Info) Description 03/08/2025 10:00 AM EDT Hospital Encounter Non[place] [address] Arrived documented as of this encounter Visit Diagnoses Not on filedocumented in this encounter Care Teams Wireless Retail Manager Relationship Specialty Start Date End Date Yoko Dhaliwal MD PCP - General Internal Medicine 06/25/18 11/21/24 documented as of this encounter
--- OUTSIDE RECORDS SUMMARY | 2024-12-13 01:23 | XMS_ITS | Encounter Summary ---
Author Organization [facility] [place] [address] Care Team Providers Care Ecommerce Merchandising Manager Name Role Phone Yoko Dhaliwal MD Primary Care Provider Unavaila ble Reason for Visit * Reason Comments Establish Care * Consultation (Routine) - Closed Specialty Diagnoses / Procedures Referred By Eric jackson Referred To Contact Gastroenterology Diagnoses Small bowel stricture Eliza High MD [facility] [place] [address] [facility] [address] [place] [address] Referral ID Status Reason Start Date Expiration Date V isits Requested Visits Authorized [id number] Closed Consult, Test & Treat 07/30/2018 07/30/2019 1 1 Encounter Details Date Type Department Care Team (Late st Contact Info) Description 08/13/2018 1:00 PM EDT Office Visit [place] [address] Yaz Ferrera MD [facility] [place] [address] Anemia, unspecified type Social History Tobacco Use Types [...] Sign Reading Time Taken Comments Blood Pressure 120/68 08/13/2018 12:58 PM EDT Pulse 93 08/13/2018 12:58 PM EDT Temperature - - Respiratory Rate - - Oxygen Saturation - - Inhaled Oxygen Concentration - - Weight 93 kg (205 lb) 08/13/2018 12:58 PM EDT with shoes Height 177.8 cm (5' 10) 08/13/2018 12: 58 PM EDT patient reported Body Mass Index 29.41 08/13/2018 12:58 PM EDT documented in this encounter Patient Instructions * Patient Instructions* Susi Olivia MD - 08/13/2018 1:00 PM EDT # obtain upper endoscopy report # CBC, iron studies, TTG/IgA to evaluate for causes of low iron # If iron deficiency on labs from today, then would recommend IV Iron infusions # Colonoscopy in approximately 5 months to look at the surgical site # Avoiding foods with a lot of roughage. Low residue diet to help prevent blockages documented in this encounter Progress Notes * Susi Olivia MD - 08/13/2018 1:00 PM EDT [facility] Division of Gastroenterology and Hepatology Outpatient Consultation Reason for Visit: ? New diagnosis of Crohn's disease Referred by Eliza High History of Present Illness: Warren Noel is a 68 y.o. male with PMH significant for HTN, reflux who is seen in consultation for possible new diagnosis of Crohn's disease. When he was younger, he always felt like he needed to be close to a bathroom. These change in bowelhabits came about when he was about 48 years old. Hamburger and georgian fries or other greasy foods would also worsening his symptoms about 1 hour later. He would have gas, bloating, distended and diarrhea. He was then prescribed tylenol codeine for his back pain and that significantly improved his symptoms of diarrhea. Sometimes, this would cause constipation if he took too much codeine. He did not have any weight loss. He feels like he has seen rectal bleeding off and on thought to be related to hemorrhoids. It was back earlier in April that he was told he was anemic. He went for a routine check up. His yoko noted that he was more tired over the winter and he had a routine blood draw that informed him that he was anemia. He saw rectal bleeding once or twice, but he cannot contribute the amount of blood that he saw to requiring two units of PRBC. In April, he required two transfusions. This is what prompted further evaluation. He underwent a colonoscopy and endoscopy that were unremarkable for causes of anemia. Therefore he was referred for a capsule endoscopy. The capsule was unremarkable, but it was an unremarkable study other than not reaching the cecum. He had multiple obstructions, his mentions 3 admissions to [facility]. He then was transferred here and subsequently underwent a small bowel resection. He has never had radiation therapy to his abdomen. He has not had any travel recently. He does not take any significant amount of NSAIDs. He has not taking them for a very long time. He takes a children's multivitamin with iron. Regular iron made him feel worse. Overall, he is recovering from surgery well. Review of Systems: Constitutional: No weight loss HEENT: No visual changes, URI symptoms Cardio: No chest pain Resp: No cough, no SOB Hem/Lymph: no new lumps or bumps on body GI: see HPI : no dysuria Skin: no new rashes Musculoskeletal: no new joint pains Neuro: no new numbness, weakness in extremities All other systems negative except as above in HPI PMH: HTN GERD Patient Active Problem List Diagnosis ??? Foreign body in small intestine No past medical history on file. Past Surgical History: Procedure Laterality Date ??? PRG FLUOROSCOPE EXAMINATION N/A 07/23/2018 FLUROSCOPY:UP TO ONE HOUR (WRVU 0.17) performed by Eliza High MD at [facility] ? ? PRG GI TRACT IMAGING, INTRALUMINAL, ESOPHAGUS THROUGH ILEUM, W INTERP & REPORT N/A 06/28/2018 VIDEO CAPSULE ENDOSCOPY performed by Rafa Leslie MD at [facility] ENDOSCOPY ? ? PRO LAP, SURG, ENTERECTOMY, RESECT & ANAST N/A 07/23/2018 @LAPAROSCOPIC ASSISTED SM. BOWEL RESECTION, SINGLE (WRVU 23.39) performed by Eliza High MDat [facility] Social History: reports that he quit smoking about 35 years ago. His smoking use included Cigarettes. He has never used smokeless tobacco. He reports that he drinks alcohol. He reports that he does not use illicit drugs. 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 Family History: No FH of Crohn's disease. No FH of celiac disease. No FH of GI malignancies. Current Outpatient Prescriptions Medication Sig Dispense Refill ??? pediatric multivitamin with iron Tablet, Chewable Take 1 tablet by mouth daily. ??? acetaminophen-codeine (TYLENOL #3) 300-30 mg Tablet Take 2 tablets by mouth every 6 hours as needed for Pain. 40 tablet 0 ??? polyethylene glycol (MIRALAX) 17 gram Powder in Packet Take 17 g by mouth daily. ??? esomeprazole (NEXIUM) 40 mg Capsule, Delayed Release(E.C.) TAKE ONE CAPSULE BY MOUTH EVERY DAY 3 ??? SENNA LAXATIVE 8.6 mg Tablet TAKE 1 TABLET BY MOUTH AT BEDTIME 0 ??? fluticasone (FLONASE) 50 mcg/actuation [place], Suspension USE 2 SPRAYS NASALLY DAILY 3 ??? metoprolol succinate (TOPROL-XL) 50 mg Tablet Sustained Release 24 hr TAKE ONE TABLET BY MOUTH AT BEDTIME 3 ??? lisinopril (PRINIVIL;ZESTRIL) 20 mg Tablet Take 20 mg by mouth daily. ??? docusate sodium (COLACE) 100 mg Capsule TAKE ONE CAPSULE BY MOUTH TWICE A DAY 0 ??? CIS Free Text Med - Albuterol 2 Puff(s), Inh, Four times daily PRN (Patient not taking: No sig reported) No current facility-administered medications for this visit. Allergies Allergen Reactions ??? Influenza Virus Vaccine Bivalent Anaphylaxis Physical Examination: BP 120/68 Pulse 93 Ht 177.8 cm (5' 10) Comment: patient reported Wt 93 kg (205 lb) Comment: with shoes BMI 29.41 kg/m2 General:Pleasant, cooperative, NAD HEENT: NC/AT, MMM Eyes: anicteric sclera Labs: Reviewed in EDH/Scan Docs Lab Results Component Value Date WBC 8.7 07/25/2018 HGB 9.0 (L) 07/25/2018 HCT 29.9 (L) 07/25/2018 MCV 78.7 (L) 07/25/2018 PLATELET 304 07/25/2018 Chemistry Component Value Date/Time NA 141 07/25/2018 0442 K 3.9 07/25/2018 0442 CL 105 07/25/2018 0442 CO2 24 07/25/2018 0442 BUN 19 07/25/2018 0442 CREATININE 0.97 07/25/2018 0442 Component Value Date/Time CALCIUM 8.9 07/25/2018 0442 No results found for: ALT, AST, GGT, ALKPHOS, BILITOT Additional Testing: Reviewed available labs, imaging and endoscopy results in EDH/CIS as well as Scan Docs tab. IMPRESSION: Warren Noel is a 68 y.o. 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 His case is challenging to give him a diagnosis of Crohn's disease as he had 2 focal strictures found on surgical pathology without any evidence of active inflammation. From reading the operative note, does not appear that there was significant creeping fat that was suggestive of active inflammation. Additionally, his capsule endoscopy and colonoscopy performed by Dr. Miles did not show any evidence of inflammation suggestive of IBD. The differential for diagnoses that cause focal stricturingis limited. He does not have a history of prior NSAID use, radiation exposure, or infectious causesi.e. TB, Crohn's disease. Regardless, if he were to have a diagnosis of Crohn's disease, he presented at age 68 with stricturing phenotype. Therefore he has a low risk and would not start him on Crohn's directed therapy at this time. Would recommend close monitoring with a colonoscopy in 4-6 monthspostoperatively to assess for disease recurrence at the surgical site. The results of this procedure would be helpful in determining whether or not to pursue Crohn's directed therapy. In terms of his anemia, he had a upper endoscopy (report not available so unknown whether or not duodenal biopsies for celiac disease were obtained) and unremarkable colonoscopy. The limited view on the capsule endoscopy did not show a reason for iron deficiency. He has been taking children's multivitamin with iron. This most likely is not sufficient to replace his iron. We will check iron studies and hemoglobin today. If this still shows iron deficiency anemia would recommend IV iron. RECOMMENDATIONS:These recommendations were printed out for the patient: # obtain upper endoscopy report # CBC, iron studies, TTG/IgA # If iron deficiency on labs from today, then would recommend IV Iron infusions # Colonoscopy with anesthesia in approximately 5 months to look at the surgical site # Avoiding foods with a lot of roughage. Low residue diet Follow up after colonoscopy. He was seen with Dr. Ferrera. Susi Olivia [place] [address] P: [phone] F: [phone] ATTENDING ADDENDUM I interviewed and examined Warren Noel with Dr. Olivia in clinic today. Please see her note for details. In short, he had some diarrhea dating back 20 years, but this is been relatively mild and stable. This past summer, he developed paroxysms of pain consistent with obstructive episodes.Eventually, he came to laparotomy and was found to have 2 discrete stenoses with fibrosis but a relative lack of inflammation. There is not a significant history of NSAID use. There is no family history of intestinal disease, including IBD and celiac disease. There is no dysplasia seen on the pathology specimen nor any evidence of neoplasia PHYSICAL EXAMINATION: Most Recent Vitals: 08/13/18 1258 BP: 120/68 Pulse: 93 PainSc: 0 - No pain Wt Readings from Last 3 Encounters: 08/13/18 93 kg (205 lb) 07/23/18 93 kg (205 lb) 07/18/18 93 kg (205 lb) Body mass index is 29.41 kg/(m^2). GEN: Healthy-appearing in no acute distress. Appears stated age. Cooperative and answers questions appropriately. SKIN: No rashes or abnormal lesions. NECK: No adenopathy and no thyromegaly. HEENT: PERRL, EOMI, MANAGER LEGAL and OP clear without ulceration or lesions. LUNGS: Clear to auscultation bilaterally. COR: Regular, normal S1 and S2 without murmurs ABD: Normal active bowel sounds. Soft and non-distended. No tenderness to deep palpation in all 4 quadrants. No hepatosplenomegaly. Healed midline incision and small laparoscopic incision in the right upper quadrant. EXT: No cyanosis, clubbing or edema. This is a very atypical presentation for ileal fibrostenosis. While Crohn's disease of the possibilities seems most likely, fibrosis without any evidence of chronic inflammation is an atypical initial presentation. However, this is most likely parsimonious explanation for the obstruction as well asiron deficiency anemia. To be thorough, we will obtain a TTG IgA antibody today to evaluate for celiac disease with the low likelihood of ulcerative enteritis. We discussed repeating colonoscopy in approximately 5 months to evaluate for recurrent small bowel inflammation. In the meantime, he will avoid NSAIDs and stick to a low residue diet. Also recommended considering IV iron infusions given his degree of anemia and intolerance of oral supplements. He will follow-up with Dr. Dhaliwal to discuss this as it could be done locally. Isaac Ferrera MD Data Architect Managermuffle worker Co-Director, [facility] Section of Gastroenterology and [place] [address] documented in this encounter Plan of Treatment Upcoming Encounters Date Type Department Care Team (Late st Contact Info) Description 03/08/2025 10:00 AM EDT Hospital Encounter Non-[place] [address] Arrived documented as of this encounter Results * Tissue transglutaminase, IgA (08/13/2018 2:42 PM EDT) TTG IgA Ab <1.2 <4.0 (Negative) unit/mL [facility] Comment: Test Performed by: [address] [address] Blood specimen (specimen) 08/13/2018 2:42 PM EDT 08/14/2018 8:39 AM EDT Narrative Resulting Agency Comment Spec In Lab Susi Olivia MD IMMUNOLOGY ORDER ADRIEN Performing Organization Address City/[facility]/ZIP Co de Phone Number [facility] [place] [address] * IgA (08/13/2018 2:42 PM EDT) IgA 139 70 - 400 mg/dL [facility] Blood specimen (specimen) 08/13/2018 2:42 PM EDT 08/13/2018 2:57 PM EDT Narrative Resulting Agency Comment Spec In Lab Susi Olivia MD CHEMISTRY ORDERA BLES Performing Organization Address [facility] Co de Phone Number [facility] [place] [address] * (ABNORMAL) Ferritin (08/13/2018 2:42 PM EDT) [facility] Ferritin 18(L) 30 - 400 ng/mL [facility] Comment: Pediatric reference ranges not verified at [facility], interpret with caution. Reference ranges for females greater than 50 years of age approach values for men, i.e., 30-400 ng/mL. Blood specimen (specimen) 08/13/2018 2:42 PM EDT 08/13/2018 2:57 PM EDT Narrative Resulting Agency Comment Spec In Lab Susi Olivia MD CHEMISTRY ORDERA BLES Performing Organization Address [facility] Co de Phone Number [facility] [place] [address] * (ABNORMAL) Iron and TIBC (08/13/2018 2:42 PM EDT) Iron 40(L) 45 - 160 mcg/dL [facility] TIBC 374 250 - 450 mcg/dL [facility] Iron Saturation 11(L) 20 - 50 % [facility] Blood specimen (specimen) 08/13/2018 2:42 PM EDT 08/13/2018 2:57 PM EDT Narrative Resulting Agency Comment Spec In Lab Susi Olivia MD CHEMISTRY ORDERA BLES Performing Organization Address City/[facility]/[place] [address] * (ABNORMAL) Hemogram (08/13/2018 2:42 PM EDT) White Blood Cell 7.1 4.0 - 9.5 x10(3)/[facility] Red Blood Cell 4.70 4.58 - 5.54 x10(6)/[facility] Hemoglobin 11.0(L) 13.7 - 16.5 gm/dL [facility] Hematocrit 36.7(L) 40.5 - 48.5 % [facility] Mean Cell Volume 78.1(L) 82.9 - 93.1 fL [facility] Mean Cell Hemoglobin 23.4(L) 27.5 - 32.1 pg [facility] Mean Cell Hemoglobin Concentration 30.0(L) 32.0 - 35.7 gm/dL [facility] Platelet 286 145 - 357 x10(3)/[facility] RDW Standard Deviation 45.0 36.0 - 45.0 [facility] RDW coefficient of variation 15.9(H) 11.4 - 13.8 % [facility] Mean Platelet Volume 11.4 7.6 - 12.9 [facility] NRBC% auto 0.0 % [facility] NRBC Absolute 0.000 0.000 - 0.000 x10(3)/[facility] Blood specimen (specimen) 08/13/2018 2:42 PM EDT 08/13/2018 2:57 PM EDT Narrative Resulting Agency Comment Spec In Lab Susi Olivia MD HEMATOLOGY ORDER ADRIEN Performing Organization Address City/[facility]/ZIP Co de [place] [address] documented in this encounter Visit Diagnoses Diagnosis Anemia, unspecified type documented in this encounter Care Teams Ecommerce Merchandising Manager Relationship Specialty Start Date End Date Yoko Dhaliwal MD PCP - General Internal Medicine 06/25/18 11/21/24 documented as of this encounter
--- OUTSIDE RECORDS SUMMARY | 2024-12-13 01:23 | XMS_ITS | Encounter Summary ---
[place] [address] Care Team Providers Care Joint Setter Name Role Phone Yoko Dhaliwal MD Primary Care Provider Unavaila ble Encounter Details Date Type Department Care Team (Late st Contact Info) Description 06/28/2018 7:30 AM EDT - 06/28/2018 8:00 AM EDT Surgery [place] [id number] Rafa Leslie MD [facility] [place] [address] VIDEO CAPSULE ENDOSCOPY (WRVU 2.24) Social History Tobacco Use Types Packs/Day Years Used Date Smoking Tobacco: Never Assessed Sex and Gender Information Value Date Recorded Sex Assigned at Not on file Gender Identity Not on file Sexual Orientation Not on file documented as of this encounter Medications at Time of Discharge Medication Sig Dispensed Refills Start Date End Date docusate sodium (COLACE) 100 mg Capsule TAKE ONE CAPSULE BY MOUTH TWICE A DAY 0 04/28/2018 esomeprazole (NEXIUM) 40 mg Capsule, Delayed Release(E.C.) TAKE ONE CAPSULE BY MOUTH EVERY DAY 3 05/17/2018 SENNA LAXATIVE 8.6 mg Tablet TAKE 1 TABLET BY MOUTH AT BEDTIME 0 06/02/2018 fluticasone (FLONASE) 50 mcg/actuation [place], Suspension USE 2 SPRAYS NASALLY DAILY 3 04/27/2018 CIS Free Text Med - Albuterol 2 Puff(s), Inh, Four times daily PRN 06/22/2006 metoprolol succinate (TOPROL-XL) 50 mg Tablet Sustained Release 24 hr TAKE ONE TABLET BY MOUTH AT BEDTIME 3 04/27/2018 07/19/2023 sildenafil (VIAGRA) 50 mg tablet 10/31/2006 07/18/2018 simvastatin (ZOCOR) 80 mg tablet 80MG, PO, Once daily 06/22/2006 018 terbinafine (LAMISIL) 1 % cream 1 Appl(s), Top, TID 06/22/2006 07/18/20 18 naproxen sodium (ALEVE) 220 mg tablet 06/22/2006 08/13/2018 acetaminophen-codeine (TYLENOL-CODEINE #4) 300-60 mg per tablet 1 Tablet(s), PO, Twice daily 06/22/2006 07/25/2018 documented as of this encounter Plan of Treatment Upcoming Encounters Date Type Department Care Team (Late st Contact Info) Description 03/08/2025 10:00 AM EDT Hospital Encounter Non[place] [address] Arrived documented as of this encounter Procedures Procedure Name Priority Date/Time Associated Diagnosis Comments VIDEO CAPSULE ENDOSCOPY Routine 06/28/2018 12:47 PM EDT VIDEO CAPSULE ENDOSCOPY (WRVU 2.24) 06/28/2018 7:30 AM EDT anemia documented in this encounter Results * VIDEO CAPSULE ENDOSCOPY (06/28/2018 12:47 PM EDT) VIDEO CAPSULE ENDOSCOPY [facility] Endoscopy Procedure Date: 06/28/2018 12:47 PM ? Patient Name: Warren Noel ? Date of : 1950 ? Age: 68 ? Order #: [id number] ? Instrument Name: ? Procedure: ? Video capsule endoscopy Indications: ? GI bleeding source not documented by ? previous EGD and colonoscopy Providers: ? Rafa Leslie MD Referring : ?Yoko Dhaliwal MD Medicines: ? None Complications: ? No immediate complications. ? Potential retained capsule Procedure: ? The video capsule endoscopy was ? accomplished without difficulty. The ? SensorArray was applied to the ? patient's abdomen with adhesive pads ? and connected to the DataRecorder ? around the waist. The DataRecorder ? was checked to ensure green light was ? flashing. The patient was then ? instructed to ingest the M2A capsule ? and provided a glass of water. This ? was accomplished without difficulty. ? The patient was then given ? instructions for eating and drinking ? and was instructed to periodically ? monitor the DataRecorder throughout ? the day to insure proper transmission. ? Approximately eight hours later the ? patient returned for removal of the ? SensorArray. ? Findings: ? The gastric passage time was 50 minutes. ? At the end of the 8 hour video the capsule was still ? within the small bowel, it did not reach cecum. ? No intrinsic abnormalities noted ? Images of the esophagus, stomach and small bowel were ? obtained from the swallowed capsule and reviewed. ? The duodenum was normal. ? The jejunum was normal. ? The portion of visualized ileum was normal. ? Moderate Sedation: ? Not applicable, no sedation required. Impression: ?- Normal duodenum. ? - Normal jejunum. ? - Normal ileum, portion of ileum not ? visualized. Recommendation: ?check KUB in two weeks to assure ? passage of the capsule ? Attending Participation: ? I personally performed the entire procedure. ? __ Rafa Leslie MD 06/29/2018 12:54:05 PM This report has been signed electronically. Number of Addenda: 0 Note Initiated On: 06/29/2018 12:47 PM PROVATION 06/28/2018 12:4 7 PM EDT Yoko Dhaliwal MD [facility] documented in this encounter Visit Diagnoses Not on filedocumented in this encounter Care Teams Joint Setter Relationship Specialty Start Date End Date Yoko Dhaliwal MD PCP - General Internal Medicine 06/25/18 11/21/24 documented as of this encounter
--- OUTSIDE RECORDS SUMMARY | 2024-12-13 01:23 | XMS_ITS | Encounter Summary ---
Author Organization [facility] [place] [address] Care Team Providers Care Monitor Car Operator Name Role Phone Yoko Dhaliwal MD Primary Care Provider Unavaila ble Reason for Visit * Auth/Cert Specialty Diagnoses / Procedures Referred By Eric jackson Referred To Contact Diagnoses Foreign body in small intestine RETAINED ENDOSCOPIC CAPSULE unk Procedures PRO LAP, SURG, ENTERECTOMY, RESECT & ANAST PRO REMOVE FOREIGN BODY COMPLICATED @LAPAROSCOPIC ASSISTED SM. BOWEL RESECTION, SINGLE (WRVU 23.39) FOREIGN BODY REMOVAL, DEEP, ABDOMEN (WRVU 2.74) Referral ID Status Reason Start Date Expiration Date Visits Re quested Visits Authorized [id number] 1 Encounter Details Date Type Department Care Team (Late st Contact Info) Description 07/23/2018 7:30 AM EDT - 07/23/2018 10:28 AM EDT Surgery [place] [address] Rochelle High MD [facility] [place] [address] @LAPAROSCOPIC ASSISTED SM. BOWEL RESECTION, SINGLE (WRVU 23.39) Social History Tobacco Use Types Packs/Day Years [...] Sign Reading Time Taken Comments Blood Pressure 148/66 07/23/2018 6:16 AM EDT Pulse 92 07/23/2018 6:16 AM EDT Temperature 36.7 ??C (98.1 ??F) 07/23/2018 6:16 AM ED T Respiratory Rate 18 07/23/2018 6:16 AM EDT Oxygen Saturation 100% 07/23/2018 6:16 AM EDT Inhaled Oxygen Concentration - - Weight 93 kg (205 lb) 07/23/2018 6:16 AM EDT Height 174 cm (5' 8.5) 07/23/2018 6:16 AM EDT Body Mass Index 30.72 07/23/2018 6:16 AM EDT documented in this encounter Discharge Summaries * Maisha Melendez PA - 07/24/2018 11:02 AM EDT General Surgery Discharge Summary Patient Name: Warren Noel Patient Age: 68 y.o. Birthdate: 1950 Admit date: 07/23/2018 Discharge date and time: 07/25/2018 Attending Physician: Rochelle High MD Primary Diagnosis: Retained Endoscopic Capsule Secondary Diagnosis: Asthma; HTN Operations and Procedures: Laparoscopic Assisted Small Bowel Resection with Fluoroscopy Surgeons: Surgeon(s) and Role: * Rochelle High MD - Primary * Svitlana Crockett MD - Resident-Chlorobutadiene Scrubber Operator History of Present Illness: Warren Noel is a 68 y.o. male referred by Yoko Dhaliwal MD for andDr. Leslie for abdominal pain and recurrent SBO. Mr. Noel presented in April 2018 with a GI bleedwith a hemoglobin down to 7 requiring transfusion of 2 units of packed red blood cells. On May 14, 2018 he underwent an upper endoscopy as well as a colonoscopy which were normal. A video capsule endoscopy was placed on 06/28/2018 which to the extent of the read at 8 hours was normal. On 07/01/2018 he presented with abdominal pain nausea and vomiting and was found to have a retained capsule in his ileum. A CT scan on 07/01/2018 showed a right lower quadrant capsule with associated small bowel dilation concerning for obstruction. This was managed in [facility]. He thinks that follow-up imagingdid not show evidence of the capsule. He stated that he presented to [facility] due to intermittent mid abdominal pain that dates back to April. He thought that the pain is made better by eating. He denied nausea, vomiting, diarrhea or constipation outside of the episode associated with his presentation for retained capsule. Tylenol generally makes the pain better. He stated the pain is not there on every day basis, however has become quite bothersome to him. He denied any ongoing blood in his stool. He was admitted to [facility] for SBO 07/18-07/20. He has been following a soft diet since discharge. Hospital Course: Warren Noel is a 68 [...] was changed to oral pain medications andthe NUTRITION TECH was discontinued on POD# 1. He was [...] was discharged to home in stable condition. Vital Signs: Last value Range last 24hrs Temperature Temp: 37 ??C (98.6 ??F) Temp: [36.3 ??C (97.3 ??F)-37 ??C (98.6 ??F)] Heart Rate Heart Rate: 70 Heart Rate: [70-72] Blood Pressure BP: 156/85 BP: (149-184)/(75-93) Respiratory Rate Resp: 22 Resp: [18-22] SpO2 SpO2: 97 % SpO2: [95 %-97 %] Pertinent Lab Data: Recent Labs 07/25/18 0442 07/24/18 0533 WBC 8.7 10.8* HGB 9.0* 9.1* HCT 29.9* 29.6* PLATELET 304 288 Recent Labs 07/25/18 0442 07/24/18 0533 NA 141 138 K 3.9 4.3 CL 105 102 CO2 24 24 BUN 19 22* CREATININE 0.97 0.83 GLUCOSE 105 132 CALCIUM 8.9 8.8 Physical Exam: General: NAD, resting comfortably, pleasant, conversant HEENT: PERRL, anicteric sclerae CVS: Mild murmur noted, otherwise RRR Pulm: CTAB Abd: soft, appropriately tender, non-distended. 4 port sites with mid-line incision with mild driedblood noted on the mid-line dressing, but no evidence of active bleeding. No edema, erythema or ecchymosis noted. No drainage or s/s of infection noted : no problems with voiding Skin: warm, dry Ext: no c/c/e Neuro: CN 2-12 grossly intact, nonfocal,moving all four extremities spontaneously Imaging: Xr Fluoro No Rad <1hr - Or Use Result Date: 07/23/2018 This order does not need a radiologist interpretation. Xr Abdomen Flat & Upright Result Date: 07/23/2018 EXAMINATION: XR ABDOMEN FLAT AND UPRIGHT CLINICAL HISTORY: Looking for retained capsule from previous procedure TECHNIQUE: Multiple intraoperative AP views of the abdomen and pelvis. A limited crosstable lateral view where there is extensive motion. And a single radiograph of a bowel specimen. COMPARISON: CT abdomen and pelvis 07/18/2018 and abdominal radiograph 07/18/2018 FINDINGS: Radiodense clamp projects over the soft tissues just lateral to the right hip. A radiodense clamp also projects in the upper abdomen on the crosstable lateral view. There is an enteric tube projecting with its side-port near the gastroesophageal junction. There is a temperature probe with its tip projecting over theexpected location of the distal esophagus. In the visualized radiographic images of the abdomen, the electronic capsule is not visualized. On the lateral view, there is a rectangular radiodensity projecting over the L3 vertebral body, and there is a smaller rectangle projecting over the expected location of L4-5. However, neither of these objects have the configuration or radiographic appearance of the endoscopic capsule that was visualized by radiograph on 07/18/2018. A separate view of a specimen of resected loop of bowel was also reviewed. Radiodense suture material is seen within the specimen. However, there is no radiodense electronic capsule device within the specimen. In the visualized views of the abdomen and of the specimen of resected bowel, no radiodense electronic capsule device with an appearance similar to that of the capsule seen by radiograph on 07/18/2018 is visualized. I, Dr. Huizar, discussed these results with ROCHELLE HIGH on 07/23/2018 10:46 AM and verified that (s)he understood these results. Xr Abdomen Flat & Upright Result Date: 07/18/2018 EXAMINATION: XR ABDOMEN FLAT AND UPRIGHT CLINICAL HISTORY: Assess for retained capsule. PLEASE DO CROSS TABLE LATERAL, AP supine and xtl for foreign body TECHNIQUE: AP supine and cross table lateral radiographs of the abdomen. COMPARISON: CT abdomen and pelvis from [facility] dated 07/01/2018. FINDINGS: An ovoid radiopaque capsule projects over the central mid right hemiabdomen, just inferior to the L1-L2 intervertebral disc space, slightly more cephalad than was seen on the 07/01/2018 CT. A few dilated air- filled loops of small bowel are seen in the left mid abdomen measuring up to 33 mm in diameter with air-fluid levels. Air and stool are noted in nondilated colon tothe level of the distal sigmoid colon. No intraperitoneal free air is seen on these views. Visualized lung bases are clear. No interval osseous findings, including again noted multilevel degenerativechanges throughout the lumbar and imaged lower thoracic spine, and postsurgical changes of L3-L5 pos terior laminectomy, L4-S1 fusion with bilateral pedicle screw and randal fixation with right lateral bone grafting. Minimal retrolisthesis of L4 on L5 and mild anterolisthesis of L5 on S1 appear unchanged. 1. Ovoid radiopaque capsule overlies the central mid right hemiabdomen, projecting slightly more cephalad in location than on the comparison 07/01/2018 CT, cannot determine certainty whether this continues to lie within the small bowel or in the large bowel/transverse colon. 2. A few nonspecific mildly dilated air-filled loops of small bowel in the left mid abdomen, may represent resolving partialsmall bowel obstruction or ileus. 3. No intraperitoneal free air identified. Film Library- Storage Only Ct Abdomen & Pelvis Result Date: 07/18/2018 This exam is for storage only and is auto-finalizing. Film Library- Storage Only Ct Abdomen & Pelvis Result Date: 07/01/2018 This exam is for storage only and is auto-finalizing. Film Library- Storage Only Dx Chest Result Date: 07/01/2018 This exam is for storage only and is auto-finalizing. Condition at discharge: Stable Mental Status: awake and alert, oriented x 3 Medications: Your Medications Notice Some of the medications listed here do not show instructions, such as how often to take the medication. Ask your doctor or nurse how to use these medications. Specifically ask about this and similar medications: naproxen sodium (ALEVE) 220 mg tablet New Medications Dose Details acetaminophen-codeine 300-30 mg Tab Commonly known as: TYLENOL #3 Take 2 tablets by mouth every 6 hours as needed for Pain. Replaces: TYLENOL-CODEINE #4 300-60 mg Tab 2 tablet Quantity: 40 tablet Refills: 0 Continued medications, unchanged Dose Details ALEVE 220 mg Tab ?nk?wn!?? Generic drug: naproxen sodium Refills: 0 CIS FREE TEXT MED 2 [...] TABLET BY MOUTH AT BEDTIME Refills: 3 polyethylene glycol 17 gram Pwpk Commonly known as: MIRALAX Take 17 g by mouth daily. 17 g Refills: 0 SENNA LAXATIVE 8.6 mg Tab TAKE 1 TABLET BY MOUTH AT BEDTIME Generic drug: senna Refills: 0 STOPPED Medications TYLENOL-CODEINE #4 300-60 mg Tab Generic drug: acetaminophen-codeine Replaced by: acetaminophen-codeine 300-30 mg Tab Disposition: Home Allergies: Allergies Allergen Reactions ??? Influenza Virus Vaccine Bivalent Anaphylaxis Outpatient Services/Studies: No discharge procedures on file. Scheduled Appointments: Future Appointments and Orders Future Appointments Provider Department Dept Phone 08/15/2018 11:00 AM Rochelle High MD General [facility] at [place] [phone] Instructions Given to Patient at Discharge: Minimally Invasive Surgery Discharge Instructions If you have any questions or concerns, please call [phone] before 5pm Monday through Monday; or [phone] after 5pm and on weekends. Diet: You have no restrictions to your diet. Activity: No heavy lifting more than 10-15 pounds for the next 4 weeks, then you may gradually liftheavier objects as tolerated by discomfort. Otherwise activity as tolerated by your comfort level. Driving: Do not drive while taking narcotic pain medications. If you are no longer taking pain medication, it should safe to drive when it no longer hurts getting in and out of the vehicle, and when you can quickly move your leg from the gas to the brake pedal without it causing pain. Pain Medications: Take only as needed. -Take the medication exactly as it is prescribed and make sure to read all instructions that come with the medication. -Over the next couple of days you should be requiring less of this medication to control you pain, so that eventually you will not need any at all. You do not have to take all of the medication that was prescribed, you may have some left over. -Use ibuprofen (motrin, advil) and/or tylenol prior to using this medication. If your pain is stillnot controlled, you may then use this medication. -Taking more than the prescribed amount of medication or using with alcohol or other drugs can cause you to stop breathing resulting in coma, brain damage or . -Opioids can slow reaction time, cause drowsiness or cloud judgement. No driving for 8 hours after any dose of opioid pain medication if one was prescribed for you. -Using this drug may cause addiction. While addiction is more common in people with a personal or family history of addiction, it can occur in anyone. -Opioids are at risk of being diverted by anyone with access to your home. Opioids should be storedin a safe and secure place, such as a locked cabinet or safe. -Unused opioids should be disposed of appropriately. They may be returned to a take-back location, or mixed with a small amount of water and poured over an undesirable waste such as used coffee grounds or cat litter. -Please note that most pain medications can cause constipation. You may use a stool softener such as Miralax to prevent this. Other Means for Pain Relief: Other than medications. ?? Learn deep breathing exercises or meditation to help you relax ?? Reduce stress ?? Your body produces natural endorphins from exercise which can help reduce pain. Even walking is considered exercise. Talk with your provider/surgical team about what exercises are appropriate for you to perform. ?? You may use a heating pad or apply ice to the painful area unless specifically discouraged by the surgical team. ?? Find ways to distract yourself from the pain. Other Medication Changes: There have been no changes to your medications. Please resume taking all of them as you had prior to surgery. Call your Dr: Please call if you notice worsening redness or drainage from incision(s) lasting longer than 5 days after your surgery, any foul-smelling drainage from the incision, pain not controlledby pain medications, persistent nausea and vomiting, or for any fevers greater than 101.3 F. Showering: You may shower and let water run over the wound 48 hours after your surgery. No soaking baths or swimming for 2 weeks from surgery. Wound Care: Once showering, wash your incision(s) daily with soap and rinse well, pat dry. Assess for any signs of infection such as increased redness, pain, warmth or drainage. The Steri-Strips willfall off in 7-10 days. The brown bandaids can be removed at any time. Follow-up: You have a follow-up appointment with Dr. High in the General Surgery clinic on Wednesday, August 15, 2018 at 11am. Signed: RAFAL Baker 07/25/2018 Primary Care Physician: Yoko Dhaliwal MD [facility] [address] / [facility] [id number] documented in this encounter Discharge Instructions * Discharge Instructions* Maisha Melendez PA - 07/25/2018 11:13 AM EDT Scheduled Appointments: Future Appointments and Orders Future Appointments Provider Department Dept Phone ?? 08/15/2018 11:00 AM Rochelle High MD [facility] [place] [phone] ? Instructions Given to Patient at Discharge: ?? Minimally Invasive Surgery Discharge Instructions ?? If you have any questions or concerns, please call [phone] before 5pm Monday through Monday; or [phone] after 5pm and on weekends. ?? Diet: You have no restrictions to your diet. ?? Activity: No heavy lifting more than 10-15 pounds for the next 4 weeks, then you may gradually liftheavier objects as tolerated by discomfort. Otherwise activity as tolerated by your comfort level. ?? Driving: Do not drive while taking narcotic pain medications. If you are no longer taking pain medication, it should safe to drive when it no longer hurts getting in and out of the vehicle, and when you can quickly move your leg from the gas to the brake pedal without it causing pain. ?? Pain Medications: Take only as needed. -Take the medication exactly as it is prescribed and make sure to read all instructions that come with the medication. -Over the next couple of days you should be requiring less of this medication to control you pain, so that eventually you will not need any at all. You do not have to take all of the medication that was prescribed, you may have some left over. -Use ibuprofen (motrin, advil) and/or tylenol prior to using this medication. If your pain is stillnot controlled, you may then use this medication. -Taking more than the prescribed amount of medication or using with alcohol or other drugs can cause you to stop breathing resulting in coma, brain damage or . -Opioids can slow reaction time, cause drowsiness or cloud judgement. No driving for 8 hours after any dose of opioid pain medication if one was prescribed for you. -Using this drug may cause addiction. While addiction is more common in people with a personal or family history of addiction, it can occur in anyone. -Opioids are at risk of being diverted by anyone with access to your home. Opioids should be storedin a safe and secure place, such as a locked cabinet or safe. -Unused opioids should be disposed of appropriately. They may be returned to a take-back location, or mixed with a small amount of water and poured over an undesirable waste such as used coffee grounds or cat litter. -Please note that most pain medications can cause constipation. You may use a stool softener such as Miralax to prevent this. ?? Other Means for Pain Relief: Other than medications. ?? Learn deep breathing exercises or meditation to help you relax ?? Reduce stress ?? Your body produces natural endorphins from exercise which can help reduce pain. Even walking is considered exercise. Talk with your provider/surgical team about what exercises are appropriate for you to perform. ?? You may use a heating pad or apply ice to the painful area unless specifically discouraged by the surgical team. ?? Find ways to distract yourself from the pain. ? Other Medication Changes: There have been no changes to your medications. Please resume taking all of them as you had prior to surgery. ?? Call your Dr: Please call if you notice worsening redness or drainage from incision(s) lasting longer than 5 days after your surgery, any foul-smelling drainage from the incision, pain not controlledby pain medications, persistent nausea and vomiting, or for any fevers greater than 101.3 F. ? Showering: You may shower and let water run over the wound 48 hours after your surgery. No soaking baths or swimming for 2 weeks from surgery. ?? Wound Care: Once showering, wash your incision(s) daily with soap and rinse well, pat dry. Assess for any signs of infection such as increased redness, pain, warmth or drainage. The Steri-Strips willfall off in 7-10 days. The brown bandaids can be removed at any time. ?? Follow-up: You have a follow-up appointment with Dr. High in the General Surgery clinic on Wednesday, August 15, 2018 at 11am. ?? documented in this encounter Medications at Time of Discharge Medication Sig Dispensed Refills Start Date End Date acetaminophen-codeine (TYLENOL #3) 300-30 mg Tablet Take [...] BEDTIME 0 06/02/2018 fluticasone (FLONASE) 50 mcg/actuation [place], Suspension USE 2 SPRAYS NASALLY DAILY 3 04/27/2018 lisinopril (PRINIVIL;ZESTRIL) 20 mg Tablet Take 20 mg by mouth daily. CIS Free Text Med - Albuterol 2 Puff(s), Inh, Four times daily PRN 06/22/2006 metoprolol succinate (TOPROL-XL) 50 mg Tablet Sustained Release 24 hr TAKE ONE TABLET BY MOUTH AT BEDTIME 3 04/27/2018 07/19/2023 naproxen sodium (ALEVE) 220 mg tablet 06/22/2006 08/13/2018 documented as of this encounter Progress Notes * Robson Farrell PT - 07/25/2018 1:31 PM EDT Physical Therapy Note Pt observed at the Main Entrance with in wheelchair, he was on his way out. Discussed with patient and if they felt safe with d/c home and they indicated yes. Asked if home services were set up and reported no, educated them to call PCP if any issues arise at home, and that a home PTor RN could come to their home as needed. They are aware to follow up with PCP as needed, and were already d/c'd and heading to car. Educated to use walker at home initially and patient agreed, and recommended 24 hour support at home; and patient aware of recommendations. Robson Farrell PT Beeper# [id number] * Sita Nash RN - 07/25/2018 1:26 PM EDT Pt discharged home with in personal vehicle, transported off unit in wheelchair, denied need for staff assistance. IV access removed, tolerated well. Personal belongings gathered, personal clothing worn. Discharge instructions reviewed with patient and , narcotic prescription faxed to pt'spharmacy by provider. * Maisha Melendez PA - 07/24/2018 11:10 AM EDT Minimally Invasive Surgery Inpatient Progress Note ID: Warren Noel is a 68 y.o. male s/p laparoscopic assisted small bowel resection with fluoroscopy. Now 1 Day Post-Op. 24hr events: ?? No acute events Subjective: He admits to feeling ok this am. He does admit to being tired, and he states the pain in his abdomen worsens with movement, but otherwise the pain is controlled. He denies having passed any gas yet. He has not had any problems from being able to swallow small amounts of water. He currently denies n/v/cp/sob O: Last value Range last 24hrs Temperature Temp: 36.5 ??C (97.7 ??F) Temp: [36.5 ??C (97.7 ??F)-37.4 ??C (99.3 ??F)] Heart Rate Heart Rate: 78 Heart Rate: [78-103] Blood Pressure BP: 133/70 BP: (114-164)/(60-94) Respiratory Rate Resp: 16 Resp: [13-19] SpO2 SpO2: 98 % SpO2: [93 %-98 %] 07/23 0701 - 07/24 0700 In: 2276 [P.O.:30; I.V.:2246] Out: 680 [Urine:675] Physical Exam: General: NAD, resting comfortably, pleasant, conversant HEENT: PERRL, anicteric sclerae CVS: Mild murmur noted, RRR Pulm: CTAB Abd: soft, appropriately tender, non-distended. 4 port sites with mid-line incision with mild driedblood noted on the mid-line dressing, but no evidence of active bleeding. No edema, erythema or ecchymosis noted. No drainage or s/s of infection noted : voiding small amounts, but no problems with voiding Skin: warm, dry Ext: no c/c/e Neuro: non-focal, moving all four extremities spontaneously Labs: Recent Labs 07/24/18 0533 WBC 10.8* HGB 9.1* HCT 29.6* PLATELET 288 Recent Labs 07/24/18 0533 NA 138 K 4.3 CL 102 CO2 24 BUN 22* CREATININE 0.83 GLUCOSE 132 CALCIUM 8.8 Microbiology: None New Studies: None ASSESSMENT: Warren Noel is a 68 y.o. male s/p laparoscopic assisted small bowel resection with fluoroscopy. Now 1 Day Post-Op Progressing post-operatively without any concerns. Will continue to monitor for any ROBF and advance when appropriate. C/S PT/OT to assist with ambulation. PLAN: NEURO: Pain control with IV Tylenol and NUTRITION TECH Dilaudid; will transition to po meds when able to tolerate po. CV: No acute issues. Continue home Lisinopril and Metoprolol. PULM: Encourage frequent ambulation and IS use. GI: Diet Sips and Chips (Give Meds) : no problems with voiding; monitor UOP closely FEK: LR 100cc/hr until tolerating adequate po intake; monitor lytes and replace prn ID: no indication of active infection HEME: no indication of active bleeding ENDO: no active issues PROPHYLAXIS: Lovenox for DVT DISPO: floor status, Full Code No plans for discharge at the present time. RAFAL BAKER 07/24/2018 * Haleigh Colon RN - 07/23/2018 6:39 PM EDT Pt arrived on unit around 1640 in stable condition. States pain well controlled with NUTRITION TECH. Pt tryingto void, but has been unsuccessful. Last bladder scan 159 around 1730. Pt remains NPO, no complaints of nausea. Pt states he has not passed flatus yet. Pt resting in room. * Jocelynn Lynch RN - 07/23/2018 1:06 PM EDT Break coverage for Obie Espino RN. Hand off received * Obie Espino RN - 07/23/2018 11:53 AM EDT 1145: Pt admitted to PACU after report from anesthesia provider; monitors on; alarms settings confirmed and appropriate for pt; admission assessment ongoing; see PACU phase I flowsheet. BUTLER. 1152: Jaqui GARZA at bedside for post-op check; pt to 3L IN after brief RA trial. 1547: Pt's 4W room ready. Nurse unvaible to take report at this time. 1600: Report telephoned to Blanca ARIZA in 4W; pt ready for transport documented in this encounter H&P Notes * Svitlana Crockett MD - 07/23/2018 7:02 AM EDT Surgery Interval H&P ID: Warren Noel is a 68 y.o. male with a history of GI bleed s/p capsule endoscopy with retained capsule causing small bowel obstructin who is here for diagnostic laparoscopy with removal of foreign body. No major changes in health since his last clinic visit with Dr. High on 07/18/18. He was admitted to [facility] for SBO 07/18-07/20. He has been following a soft diet since discharge. Patient Vitals for the past 24 hrs: BP Temp Temp src Pulse Resp SpO2 Height Weight 07/23/18 0616 148/66 36.7 ??C (98.1 ??F) Oral 92 18 100 %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 live on main level, does access the furnace in the basement. Pt's complete cooking, cleaning and laundry, pt does currently drive. Functional Level Prior Prior Functional Level Comment Pt was I w/ mobility / dressing, however recently using a SPC d/t weakness. Pt was Festus w/ bathing/toileting. Pt has a tub shower w/ seat/grab bar and raised toilet seat w/ vantity nearby. Self-Care Dominant Hand right Vision Assessment/Intervention Additional Documentation Vision Assessment/Intervention (Group) Vision Assessment/Intervention Visual Impairment/Limitations corrective lenses for reading Cognitive Assessment/Intervention Additional Documentation Cognitive Assessment Interventions (Group) Cognitive Assessment Interventions Behavior/Mood Observations (Cognitive) WNL/WFL;behavior appropriate to situation;alert;cooperative Orientation Status (Cognitive) oriented x 4 Attention (Cognitive) WNL/WFL Follows Commands/Answers Questions (Cognitive) 100% of the time Pain Scale/Rating Pain Assessment Scale Numbers (Numeric Rating Pain Scale) Pain Goal 5 Pain Assessment Numbers/Faces/Word Pain Body Location abdomen ROM (Range of Motion) Additional Documentation General Assessment (Group) General Range of Motion no range of motion deficits identified MMT (Manual Muscle Testing) Additional Documentation General Assessment (Group) General Assessment General Manual Muscle Testing Assessment no strength deficits identified Mobility Assessment/Training Additional Documentation Bed Mobility Assessment/Treatment (Group);Gait Assessment/Treatment (Group) Bed Mobility Assessment/Treatment Assistive Device (Bed Mobility) bed rails (HOB elevated) Roll Right [place] (Bed Mobility) moderate assist (50% patient effort) (Per PT verbal report. ) Safety Issues (Bed Mobility) other (see comments) (Per PT verbal report, PT instructed pt in log roll technique) Gait Assessment/Treatment [place] (Gait) supervision required;verbal cues required;contact guard assist;1 person + 1 person to manage equipment Assistive Device (Gait) rolling walker Distance in Feet (Gait) (25') Comment (Gait) Pt required CGA and v/c's to increase safety awareness w/ use of FWW. Pt demonstrates increased risk for falls and demontrates limited understanding of importance of using FWW vs. SPC. ADL Assessment/Intervention Additional Documentation Grooming Assessment/Training (Group);Lower Body Dressing Assessment/Training (Group) Lower Body Dressing Assessment/Training Comment (LB Dressing) Pt sat EOB and was able to don pants w/ CGA in standing d/t LLE prosthetic not clicking in properly. Pt demonstrated redcued safety w/ risk of LOB requiring v/c's to increase safety awareness of limitaitons. Grooming Assessment/Training Comment (Grooming) Sitting EOB pt was able to brush teeth and comb hair w/ I. Plan of Care Review Plan Of Care Reviewed With patient;spouse;daughter Occupational Therapy Goal Types Occupational Therapy Goal Types Toileting Goal (Group);LB Dressing Goal (Group);Grooming Goal (Group) Grooming Goal Grooming Goal, Date Established 07/24/18 Grooming Goal, Time to Achieve 1 wk Grooming Goal, Activity Type Pt will complete grooming standing at sink w/ I. Toileting Goal Toileting Goal, Date Established 07/24/18 Toileting Goal, Time to Achieve 1 wk Toileting Goal, Activity Type Pt will complete toileting w/ Festus. LB Dressing Goal LB Dressing Goal, Date Established 07/24/18 LB Dressing Goal, Time to Achieve 1 wk LB Dressing Goal, Activity Type Pt will complete LB dressing w/ I sitting / standing EOB. Clinical Impression Criteria for Skilled Therapeutic Interventions Met treatment indicated Rehab Potential good, to achieve stated therapy goals Therapy Frequency 1-3 more visits Anticipated Discharge Disposition home with assist * Op Note - Rochelle High MD - 07/23/2018 11:16 AM EDT [facility] Patient Name: Warren Noel : [id number] MR#: [id number] Case Date: 07/23/2018 Surgeon: Surgeon(s) and Role: * Rochelle High MD - Primary * Svitlana Crockett MD - Resident-Chlorobutadiene Scrubber Operator Preoperative diagnosis: RETAINED ENDOSCOPIC CAPSULE Postoperative diagnosis: RETAINED ENDOSCOPIC CAPSULE Procedure(s) (LRB): @LAPAROSCOPIC ASSISTED SM. BOWEL RESECTION, SINGLE (WRVU 23.39) (N/A) FLUROSCOPY:UP TO ONE HOUR (WRVU 0.17) (N/A) Findings: Two areas of small bowel stricture of the ileum with underlying firmness, consistent withmasses. Bowel run from LOT to terminal ileum multiple times laparoscopically. Capsule not found. Converted to open, unable to locate capsule despite fluoro and multiple KUB images including cross table images. Capsule presumed to have passed. Small bowel resection performed incorporating both areasof stricture, ~20 cm in length. Stapled side to side anastomosis performed. Liver appeared normal. Anesthesia: General Estimated Blood Loss: 47 cc Specimens removed during surgery: Order Name Source Comment Collection Info Order Time SPECIMEN TO PATHOLOGY RETAINED ENDOSCOPIC CAPSULE small bowel resection. Stitch is distal. excision 07/23/2018 9:58 AM Number of tissue samples (in container) 1 Time specimen removed from patient: 9:54 AM Drains: None Surgical Closure: Primary Closure - skin incision is completely closed without any wires, humera, drains or other devices Disposition: awakened from anesthesia, extubated and taken to the recovery room in a stable condition, having suffered no apparent untoward event. Condition: doing well without problems (Please see the Surgical Encounter Summary for any Implant and Specimen details pertinent to this patient.) HPI/Surgical Indications: The patient is a 68 y.o.-year-old male with a history of a GI bleed, withnormal upper and lower endoscopies. He had a video capsule endoscope placed on 06/28/18 that was found to be retained in his distal ileum on multiple imaging modalities, most recently on 07/18/18, causing multiple admissions for small bowel obstructions, managed conservatively. He was last admitted from 07/18/18-07/20/18. After review of his therapeutic options he presented from diagnostic laparoscopy, small bowel resection and removal of foreign body. Description of Procedure: The patient was brought to the Operating Room and placed in the supine position. IV antibiotics were infused and Venodyne stockings placed. Following uneventful induction ofgeneral endotracheal anesthesia, an orogastric tube were placed. His abdomen was prepped and drapedin the usual sterile fashion. After injection of 0.25% marcaine, a small incision was made in the left upper quadrant followed by insertion of a Veress needle in the abdominal cavity with confirmation by saline drop test. Pneumoperitoneum to 15 mmHg pressure was obtained without difficulty. The first trocar was an optiview 21 mm trocar placed just above the the umbilicus, after injection of localanesthetic. Through this, a 30 degree laparoscope was inserted. Inspection of the abdomen revealed no evidence of injury from abdominal entry. The Veress needle was removed. All remaining trocars were inserted under direct visualization after injection of 0.25% marcaine. The next trocar was a 5 mm t rocar placed in the right upper quadrant. The next trocar was a 5 mm trocar placed in the right lower quadrant. Inspection of the abdomen revealed no evidence of any liver lesions. The bowel was thenrun starting at the ligament of Treitz and continued down towards the terminal ileum. In the proximal jejunum there was a small area of whitened bowel however this otherwise appears soft and normal. There was some proximal dilation of bowel and in the distal ileum there were 2 noted areas of stricture. The bowel distal to these 2 areas were decompressed. These 2 areas were approximately 10 cm apart, and perhaps 20-30 cm from the terminal ileum. Just proximal to the terminal ileum a small serosal tear was made which was reapproximated with a single interrupted stitch of 2 oh Surgilon. Laparoscopically I could not palpate the capsule within the bowel, therefore the decision was made to make asmall midline incision to be able to palpate the bowel. A knife was used to extend the skin incision above the umbilical trocar and electrocautery was used to carry this down through the fascia and into the abdominal cavity. The pneumoperitoneum was released and all trochars were removed. The smallbowel was then elevated into the wound and run again from ligament of Treitz to terminal ileum with2 areas of stricture/with palpable mass were again noted however the capsule was again not found within the bowel. We then used fluoroscopy to locate the capsule using both AP and lateral views, however the capsule was not located. At this point we presume that the capsule had passed, and proceededwith our small bowel resection to encompass the 2 areas of stricture. Resection points were determined approximately 5 cm proximal and distal to the areas of stricture, and the bowel was divided withblue loads of the NADIA stapler 75. Harmonic scalpel was used to resect the mesentery, which we took in a wedge shape down to the root of the mesentery. Hemostasis was assured. The distal margin of thebowel was marked with a stay stitch. We then performed a stapled [id number] functional end-to-end anastomosis using additional blue 75 NADIA staple load. The anastomosis appeared hemostatic. The common enterotomy was then elevated using Allis clamps and closed with a fire of a TA stapler. The anastomosis appeared wide open and hemostatic. The mesenteric defect was closed with a running 3-0 Vicrylsuture. Formal KUB AP and lateral films were taken of the abdominal category cavity as well as the resected specimen, and the capsule was again not visualized, and had presumed to have passed. We then reduce the anastomosis back into the abdomen and brought omentum over the bowel. The fascia was closed with two 0 PDS running sutures. The subcutaneous tissue was irrigated. The skin edges were reapp roximated with 2-0 Vicryl deep dermals. Hemostasis of the port sites and midline incision was assured. All skin sites were closed at the skin level using a running subcuticular closure of 4-0 Monocryl followed by Steri-Strips followed by Band-Aids. Overall, the patient tolerated the procedure well and was taken to the Recovery Room postoperatively in stable condition. I was the attending physician supervising the resident in the above care and I was present with theresident for the entire procedure. Infection Bundle used? N/A * Brief Op Note - Rochelle High MD - 07/23/2018 11:09 AM EDT Brief Operative Note Patient Name: Warren Noel : [id number] MR#: [id number] Case Date: 07/23/2018 Surgeon: Surgeon(s) and Role: * Rochelle High MD - Primary * Svitlana Crockett MD - Resident-Chlorobutadiene Scrubber Operator Preoperative diagnosis: RETAINED ENDOSCOPIC CAPSULE, Recurrent small bowel obstructions Postoperative diagnosis: RETAINED ENDOSCOPIC CAPSULE, Recurrent small bowel obstructions Procedure(s) (LRB): @LAPAROSCOPIC ASSISTED SM. BOWEL RESECTION, SINGLE (WRVU 23.39) (N/A) FLUROSCOPY:UP TO ONE HOUR (WRVU 0.17) (N/A) Anesthesia: General Findings: Two areas of small bowel stricture of the ileum with underlying firmness, consistent withmasses. Bowel run from LOT to terminal ileum multiple times laparoscopically. Capsule not found. Converted to open, unable to locate capsule despite fluoro and multiple KUB images including cross table images. Capsule presumed to have passed. Small bowel resection performed incorporating both areasof stricture, ~20 cm in length. Stapled side to side anastomosis performed. Liver appeared normal. Complications: None Estimated Blood Loss: 47 Specimens removed during surgery: Order Name Source Comment Collection Info Order Time SPECIMEN TO PATHOLOGY RETAINED ENDOSCOPIC CAPSULE small bowel resection. Stitch is distal. excision 07/23/2018 9:58 AM Number of tissue samples (in container) 1 Time specimen removed from patient: 9:54 AM Fluids: Intraprocedure Crystalloid Total None PRBCs: none (See Anesthesia Record/Report for Other Blood Products) Urine Output: (no urine output recorded) Drains: None Disposition: awakened from anesthesia, extubated and taken to the recovery room in a stable condition, having suffered no apparent untoward event. Condition: doing well without problems (Please see the Surgical Encounter Summary for any Implant and Specimen details pertinent to this patient.) Infection Bundle used? N/A documented in this encounter Plan of Treatment Upcoming Encounters Date Type Department Care Team (Late st Contact Info) Description 03/08/2025 10:00 AM EDT Hospital Encounter [place] [phone] Arrived documented as of this encounter Procedures Procedure Name Priority Date/Time Associated Diagnosis Comments HEMOGRAM Routine 07/25/2018 4:42 AM EDT DIFFERENTIAL, AUTOMATED Routine 07/25/2018 4:42 AM EDT CBC (WITH DIFF) Routine 07/25/2018 4:42 AM EDT BASIC METABOLIC PANEL Routine 07/25/2018 4:42 AM EDT HEMOGRAM Routine 07/24/2018 5:33 AM EDT DIFFERENTIAL, AUTOMATED Routine 07/24/2018 5:33 AM EDT CBC (WITH DIFF) Routine 07/24/2018 5:33 AM EDT BASIC METABOLIC PANEL Routine 07/24/2018 5:33 AM EDT XR ABDOMEN FLAT AND UPRIGHT Routine 07/23/2018 10:28 AM EDT SURGICAL PATHOLOGY REPORT Routine 07/23/2018 9:58 AM EDT SPECIMEN TO PATHOLOGY Routine 07/23/2018 9:58 AM EDT XR FLUORO NO RAD <1HR - OR USE Routine 07/23/2018 9:56 AM EDT FLUROSCOPY:UP TO ONE HOUR (WRVU 0.3) Yes 07/23/2018 7:36 AM EDT RETAINED ENDOSCOPIC CAPSULE @LAPAROSCOPIC ASSISTED SM. BOWEL RESECTION, SINGLE (WRVU 23.39) Yes 07/23/2018 7:36 AM EDT RETAINED ENDOSCOPIC CAPSULE SUSTAINABLE COMMUNITIES DESIGNER SCAN 07/23/2018 12:00 AM EDT documented in this encounter Results * (ABNORMAL) Differential, Automated (07/25/2018 4:42 AM EDT) Neutrophil % 72.5 % [facility] Neutrophil Absolute 6.29(H) 1.70 - 6.10 x10(3)/ L [facility] Lymph % 18.0 % [facility] Lymphocytes Abs 1.6 0.9 - 3.2 x10(3)/[facility] Monocyte % 6.8 % [facility] Monocyte Abs 0.6 0.3 - 0.9 x10(3)/ L [facility] Eos % 1.8 % [facility] Eosinophils Abs 0.2 0.0 - 0.4 x10(3)/[facility] Basophil % 0.6 % [facility] Baso Absolute 0.0 0.0 - 0.1 x10(3)/ L [facility] Immature Gran % 0.30 % [facility] Comment: Immature granulocytes(IG's)percentage and absolute count will include metamyelocytes, myelocytes, and promyelocytes. Blood smears from CBCs yielding IG's will be scanned manually for concordance. If this scan disagrees with the automated IG or if promyelocytes are noted, a manual differential will be performed. Immature Gran Absolute 0.03 0.00 - 0.04 x10(3)/ L [facility] Blood specimen (specimen) 07/25/2018 4:42 AM EDT 07/25/2018 4:49 AM EDT Narrative Resulting Agency Comment Spec In Lab Svitlana Crockett MD HEMATOLOGY ORDERABLE S [facility] [place] [address] * (ABNORMAL) Hemogram (07/25/2018 4:42 AM EDT) White Blood Cell 8.7 4.0 - 9.5 x10(3)/mc L [facility] Red Blood Cell 3.80(L) 4.58 - 5.54 x10(6)/mc L [facility] Hemoglobin 9.0(L) 13.7 - 16.5 gm/dL [facility] Hematocrit 29.9(L) 40.5 - 48.5 % [facility] Mean Cell Volume 78.7(L) 82.9 - 93.1 fL [facility] Mean Cell Hemoglobin 23.7(L) 27.5 - 32.1 pg [facility] Mean Cell Hemoglobin Concentration 30.1(L) 32.0 - 35.7 gm/dL [facility] Platelet 304 145 - 357 x10(3)/mc L [facility] RDW Standard Deviation 51.0(H) 36.0 - 45.0 fL [facility] RDW coefficient of variation 17.8(H) 11.4 - 13.8 % [facility] Mean Platelet Volume 11.3 7.6 - 12.9 fL [facility] NRBC% auto 0.0 % [facility] NRBC Absolute 0.000 0.000 - 0.000 x10(3)/mc L [facility] Blood specimen (specimen) 07/25/2018 4:42 AM EDT 07/25/2018 4:49 AM EDT Narrative Resulting Agency Comment Spec In Lab Svitlana Crockett MD HEMATOLOGY ORDERABLE S [facility] [place] [address] * Basic Metabolic Panel (non-fasting) (07/25/2018 4:42 AM EDT) Glucose 105 65 - 199 mg/dL [facility] Comment:Diabetes: >=200 mg/d L plus symptoms Blood Urea Nitrogen 19 10 - 20 mg/dL [facility] Creatinine 0.97 0.80 - 1.50 mg/dL [facility] Sodium 141 135 - 145 mmol/L [facility] Potassium 3.9 3.5 - 5.0 mmol/L [facility] Comment: Please note: ??Patients with WBC >100,000 may have falsely elevated Potassium levels. ??For accurate Potassium quantification in these patients send serum separator tube (gold top) for subsequent determinations. ??Contact the Clinical Chemistry Laboratory if there are any questions. Chloride 105 98 - 107 mmol/L [facility] Carbon Dioxide 24 22 - 31 mmol/L [facility] Anion Gap 12 5 - 15 mmol/L [facility] Calcium 8.9 8.5 - 10.5 mg/dL [facility] Est Glomerular Filtration Rate 79 >=60 mL/min/1. 73 m?? [facility] Comment: The eGFR was calculated using the CKD-EPI equation. As with all creatinine based estimates of kidney function, eGFR values calculated with the CKD-EPI equation are not accurate in patients with acute kidney failure, extremes of body mass or the acutely ill. [email or web address] eGFR 91 >=60 mL/min/1. 73 m?? [facility] Comment: The eGFR was calculated using the CKD-EPI equation. As with all creatinine based estimates of kidney function, eGFR values calculated with the CKD-EPI equation are not accurate in patients with acute kidney failure, extremes of body mass or the acutely ill. [email or web address] Blood specimen (specimen) 07/25/2018 4:42 AM EDT 07/25/2018 4:49 AM EDT Narrative Resulting Agency Comment Spec In Lab Rochelle High MD CHEMISTRY ORDERABLE S Performing Organization Address City/[facility]/ZIP Co de Phone Number [facility] [place] [address] * (ABNORMAL) Differential, Automated (07/24/2018 5:33 AM EDT) Neutrophil % 84.3 % [facility] Neutrophil Absolute 9.10(H) 1.70 - 6.10 x10(3)/mc L [facility] Lymph % 8.4 % [facility] Lymphocytes Abs 0.9 0.9 - 3.2 x10(3)/ L [facility] Monocyte % 6.7 % [facility] Monocyte Abs 0.7 0.3 - 0.9 x10(3)/mc L [facility] Eos % 0.0 % [facility] Eosinophils Abs 0.0 0.0 - 0.4 x10(3)/ L [facility] Basophil % 0.2 % [facility] Baso Absolute 0.0 0.0 - 0.1 x10(3)/ L [facility] Immature Gran % 0.40 % [facility] Comment: Immature granulocytes(IG's)percentage and absolute count will include metamyelocytes, myelocytes, and promyelocytes. Blood smears from CBCs yielding IG's will be scanned manually for concordance. If this scan disagrees with the automated IG or if promyelocytes are noted, a manual differential will be performed. Immature Gran Absolute 0.04 0.00 - 0.04 x10(3)/mc L [facility] Blood specimen (specimen) 07/24/2018 5:33 AM EDT 07/24/2018 5:43 AM EDT Narrative Resulting Agency Comment Spec In Lab Svitlana Crockett MD HEMATOLOGY ORDERABLE S [facility] [place] [address] * (ABNORMAL) Hemogram (07/24/2018 5:33 AM EDT) White Blood Cell 10.8(H) 4.0 - 9.5 x10(3)/[facility] Red Blood Cell 3.76(L) 4.58 - 5.54 x10(6)/[facility] Hemoglobin 9.1(L) 13.7 - 16.5 gm/dL [facility] Hematocrit 29.6(L) 40.5 - 48.5 % [facility] Mean Cell Volume 78.7(L) 82.9 - 93.1 [facility] Mean Cell Hemoglobin 24.2(L) 27.5 - 32.1 pg [facility] Mean Cell Hemoglobin Concentration 30.7(L) 32.0 - 35.7 gm/dL [facility] Platelet 288 145 - 357 x10(3)/[facility] RDW Standard Deviation 51.8(H) 36.0 - 45.0 [facility] RDW coefficient of variation 17.8(H) 11.4 - 13.8 % [facility] Mean Platelet Volume 11.0 7.6 - 12.9 [facility] NRBC% auto 0.0 % [facility] NRBC Absolute 0.000 0.000 - 0.000 x10(3)/[facility] Blood specimen (specimen) 07/24/2018 5:33 AM EDT 07/24/2018 5:43 AM EDT Narrative Resulting Agency Comment Spec In Lab Svitlana Crockett MD HEMATOLOGY ORDERABLE S [facility] [place] [address] * (ABNORMAL) Basic Metabolic Panel (non-fasting) (07/24/2018 5:33 AM EDT) Pathologist [facility] Glucose 132 65 - 199 mg/dL [facility] Comment:Diabetes: >=200 mg/d L plus symptoms Blood Urea Nitrogen 22(H) 10 - 20 mg/dL [facility] Creatinine 0.83 0.80 - 1.50 mg/dL [facility] Sodium 138 135 - 145 mmol/L [facility] Potassium 4.3 3.5 - 5.0 mmol/L [facility] Comment: Please note: ??Patients with WBC >100,000 may have falsely elevated Potassium levels. ??For accurate Potassium quantification in these patients send serum separator tube (gold top) for subsequent determinations. ??Contact the Clinical Chemistry Laboratory if there are any questions. Chloride 102 98 - 107 mmol/L [facility] Carbon Dioxide 24 22 - 31 mmol/L [facility] Anion Gap 12 5 - 15 mmol/L [facility] Calcium 8.8 8.5 - 10.5 mg/dL [facility] Est Glomerular Filtration Rate 89 >=60 mL/min/1. 73 m?? [facility] Comment: The eGFR was calculated using the CKD-EPI equation. As with all creatinine based estimates of kidney function, eGFR values calculated with the CKD-EPI equation are not accurate in patients with acute kidney failure, extremes of body mass or the acutely ill. [email or web address] eGFR 103 >=60 mL/min/1. 73 m?? [facility] Comment: The eGFR was calculated using the CKD-EPI equation. As with all creatinine based estimates of kidney function, eGFR values calculated with the CKD-EPI equation are not accurate in patients with acute kidney failure, extremes of body mass or the acutely ill. [email or web address] Blood specimen (specimen) 07/24/2018 5:33 AM EDT 07/24/2018 5:43 AM EDT Narrative Resulting Agency Comment Spec In Lab Rochelle High MD CHEMISTRY ORDERABLE [place] [address] * XR Abdomen Flat & Upright (07/23/2018 10:28 AM EDT) Anatomical Region Laterality Modality Abdomen N/A Digital Radiogra phy Impressions 07/23/2018 10:46 AM EDT In the visualized views of the abdomen and of the specimen of resected bowel, no radiodense electronic capsule device with an appearance similar to that of the capsule seen by radiograph on 07/18/2018 is visualized. I, Dr. Huizar, discussed these results with ROCHELLE HIGH on 07/23/2018 10:46 AM and verified that (s)he understood these results. Narrative 07/23/2018 10:46 AM EDT EXAMINATION: XR ABDOMEN FLAT AND UPRIGHT CLINICAL HISTORY: Looking for retained capsule from previous procedure TECHNIQUE: Multiple intraoperative AP views of the abdomen and pelvis. A limited crosstable lateral view where there is extensive motion. And a single radiograph of a bowel specimen. COMPARISON: CT abdomen and pelvis 07/18/2018 and abdominal radiograph 07/18/2018 FINDINGS: Radiodense clamp projects over the soft tissues just lateral to the right hip. A radiodense clamp also projects in the upper abdomen on the crosstable lateral view. There is an enteric tube projecting with its side-port near the gastroesophageal junction. There is a temperature probe with its tip projecting over the expected location of the distal esophagus. In the visualized radiographic images of the abdomen, the electronic capsule is not visualized. On the lateral view, there is a rectangular radiodensity projecting over the L3 vertebral body, and there is a smaller rectangle projecting over the expected location of L4-5. However, neither of these objects have the configuration or radiographic appearance of the endoscopic capsule that was visualized by radiograph on 07/18/2018. A separate view of a specimen of resected loop of bowel was also reviewed. Radiodense suture material is seen within the specimen. However, there is no radiodense electronic capsule device within the specimen. Procedure Note Susan Huizar MD - 07/23/2018 EXAMINATION: XR ABDOMEN FLAT AND UPRIGHT CLINICAL HISTORY: Looking for retained capsule from previous procedure TECHNIQUE: Multiple intraoperative AP views of the abdomen and pelvis. A limitedcrosstable lateral view where there is extensive motion. And a single radiograph of abowel specimen. COMPARISON: CT abdomen and pelvis 07/18/2018 and abdominal radiograph 07/18/2018 FINDINGS: Radiodense clamp projects over the soft tissues just lateral to the righthip. A radiodense clamp also projects in the upper abdomen on the crosstablelateral view. There is an enteric tube projecting with its side-port near the gastroesophageal junction. There is a temperature probe with its tipprojecting over the expected location of the distal esophagus. In the visualized radiographic images of the abdomen, the electronic capsule is notvisualized. On the lateral view, there is a rectangular radiodensity projecting over theL3 vertebral body, and there is a smaller rectangle projecting over theexpected location of L4-5. However, neither of these objects have the configurationor radiographic appearance of the endoscopic capsule that was visualized by radiograph on 07/18/2018. A separate view of a specimen of resected loop of bowel was alsoreviewed. Radiodense suture material is seen within the specimen. However, there isno radiodense electronic capsule device within the specimen. IMPRESSION In the visualized views of the abdomen and of the specimen of resectedbowel, no radiodense electronic capsule device with an appearance similar to that ofthe capsule seen by radiograph on 07/18/2018 is visualized. I, Dr. Huizar, discussed these results with ROCHELLE HIGH on 07/23/201810:46 AM and verified that (s)he understood these results. Rochelle High MD G DX ORDERABLES * Surgical Pathology Report (07/23/2018 9:58 AM EDT) Final Diagnosis [id number] ? Location: [facility]; [facility]; B The signing pathologist has (i) examined the relevant preparation(s) for the specimen(s) and (ii) rendered or confirmed the diagnosis(es). . 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 (see Note). NOTE: ??Intestinal mucosa shows regenerative change in the area of strictures. No evidence of dysplasia or granuloma. The findings are nonspecific, however they may be compatible with IBD in a proper clinical context after exclusion of specific etiologies. Electronically signed by: ??Carter Stahl MD Verified: ??08/08/2018 ?Pathologist Performed at: ??-[facility] [place] [facility] [place], [place], [place] DISCUSSION Correction Note: ??Typographical error corrected in the note. ??There are no other changes to the text of this report. _ CLINICAL INFORMATION Specimen Submitted: A - Small bowel resection. Stitch is distal Clinical History and Diagnosis: Retained endoscopic capsule SPECIMEN PROCESSING A - Labeled/Fixative: Small bowel resection, stitch is distal, fresh. SPECIMEN DESCRIPTION Resection Specimen: Intact, small bowel resection. Overall Size: 17.0 x 6.0 x 3.0 cm. Length/Diameter: 17.0 x 4.5 cm. External Architecture: Two strictures are noted. Stricture 1 is located 5.0 cm from distal margin and is narrowed up to 1.9 cm. Stricture 2 is located 5.0 cm from proximal margin, and is narrowed up to 1.6 cm. Serosa: Smooth pink serosal surface. Mucosa: Soft, velvety-pink rugated mucosal surface with focal puckering associated with strictures. Wall Thickness: Average wall thickness 0.9 cm. Sections/Processi ng: (1) passenger service representative distal resection margin; (2) passenger service representative proximal resection margin; (3) passenger service representative stricture 1; (4) passenger service representative stricture 2; (5) passenger service representative bowel between strictures; (6-9)Additional sections of strictures (6/7 from one stricture and 8/9 from second stricture). (R9) 08/08/2018 1:42 PM EDT [facility] STRUCTURE OF SMALL INTESTINE / Unknown 07/23/2018 9:58 AM EDT 07/23/2018 9:58 AM EDT Rochelle High MD PATHOLOGY/CYTOLOGY ORDERABLES Performing Organization Address [facility] [place] [address] * Specimen to Pathology (07/23/2018 9:58 AM EDT) AP Specimen 07/23/2018 9:58 AM EDT 07/23/2018 11:41 AM EDT Narrative [facility] - 07/23/2018 11:41 AM EDT Specimen requisition ordered. ??Separate Pathology report to follow Resulting Agency Comment Spec In Lab Rochelle High MD PATHOLOGY/CYTOLOGY ORDERABLES Performing Organization Address [facility] [place] [address] * XR Fluoro No Rad <1Hr - OR Use (07/23/2018 9:56 AM EDT) Narrative RAD - 07/23/2018 9:57 AM EDT This order does not need a radiologist interpretation. ?? Rochelle High MD IMG FLUORO ORDERABL ES Performing Organization Address [facility] de Phone Number [place], [place] * SCAN DOC: SUSTAINABLE COMMUNITIES DESIGNER (07/23/2018 12:00 AM EDT) Anatomical Region Laterality Modality Other Narrative 07/23/2018 12:00 AM EDT Ordered by an unspecified provider. Scanning Provider MEDIA MGR SCAN EXT O RDR/RSLT documented in this encounter Visit Diagnoses Not on filedocumented in this encounter Admitting Diagnoses Diagnosis Foreign body in small intestine Foreign body in intestine and colon documented in this encounter Administered Medications Inactive Administered Medications - up to 3 most recent administrations Medication Order MAR Action Action Date Dose Rate Site acetaminophen-codeine (TYLENOL #3) 300-30 mg per tablet 2 tablet 2 tablet, Oral, EVERY 6 HOURS PRN, Pain, Starting on Mon07/25/18 at 0722, Until Mon07/25/18 at 1532 Given 07/25/2018 1:22 PM EDT 2 tablets Given 07/25/2018 8:32 AM EDT 2 tablets BUpivacaine (PF) (MARCAINE) 0.25 % (2.5 mg/mL) injection ONCE PRN, Starting on Mon07/23/18 at 1100, Until Mon07/25/18 at 1532, Intra-Operative (Intra-Procedure), Routine Given 07/23/2018 11:00 AM EDT 60 mLs 19- Surgical Site enoxaparin (LOVENOX) injection 40 mg 40 mg, Subcutaneous, NIGHTLY, First dose on Mon07/23/18 at 2100, Until Discontinued, Routine Given 07/24/2018 8:46 PM EDT 40 mg Given 07/23/2018 9:39 PM EDT 40 mg fluticasone (FLONASE) 50 mcg/actuation nasal spray 1 spray 1 spray, Each Nare, DAILY, First dose on Mon07/23/18 at 1800, Until Discontinued, Routine Given 07/25/2018 8:30 AM EDT 1 spray Given 07/24/2018 8:50 AM EDT 1 spray ketorolac (TORADOL) injection 15 mg 15 mg, Intravenous, EVERY 6 HOURS SCHEDULED, 20 doses, First dose on Mon07/23/18 at 1215, Last dose on Mon07/28/18 at 0600, Routine Given 07/25/2018 11:21 AM EDT 1 5 mg Given 07/25/2018 5:30 AM EDT 15 mg Given 07/24/2018 11:47 PM EDT 15 mg lisinopril (PRINIVIL;ZESTRIL) tablet 20 mg 20 mg, Oral, DAILY, First dose on Mon07/24/18 at 0900, Until Discontinued, Routine Given 07/25/2018 8:30 AM EDT 20 mg Given 07/24/2018 8:50 AM EDT 20 mg meTOPROLOL (LOPRESSOR) tablet 12.5 mg 12.5 mg, Oral, EVERY 6 HOURS SCHEDULED, First dose on Mon07/23/18 at 1800, Until Discontinued, Routine Given 07/25/2018 11:21 AM EDT 12.5 mg Given 07/25/2018 5:30 AM EDT 12.5 mg Given 07/24/2018 11:47 PM EDT 12.5 mg ondansetron (ZOFRAN) injection 4-8 mg 4-8 mg, Intravenous, EVERY 8 HOURS PRN, Starting on Mon07/23/18 at 1631, Until Mon07/25/18 at 1532, Nausea, Start with 4mg and if ineffective in 30 minutes, give an additional 4mg If multiple antiemetics are ordered, give ondansetron first. ondansetron (ZOFRAN) tablet 4-8 mg 4-8 mg, Oral, EVERY 8 HOURS PRN, Starting on Mon07/23/18 at 1631, Until Mon07/25/18 at 1532, Nausea, Vomiting, If multiple antiemetics are ordered, use ondansetron first. PO Preferred. If patient unable to take PO, may give IV if ordered. Start with 4mg and if ineffective in 45 minutes, give an additional 4mg. If unable to take PO, may give IV., Routine oxyCODONE (ROXICODONE) immediate release tablet 5 mg 5 mg, Oral, EVERY 4 HOURS PRN, Starting on Mon07/25/18 at 0723, Until Mon07/25/18 at 1532, Pain, Give 5mg for pain 1-4; give 10mg for pain 5-10, To be given for breakthrough pain if no relieve from Tylenol with Codeine., Routine polyethylene glycol (MIRALAX) packet 17 g 17 g, Oral, DAILY, First dose on Mon07/25/18 at 1145, Until Discontinued, Routine prochlorperazine (COMPAZINE) injection 10 mg 10 mg, Intravenous, EVERY 6 HOURS PRN, Starting on Mon07/23/18 at 1631, Until Mon07/25/18 at 1532, Nausea, Nausea/Vomiting, If multiple antiemetics are ordered, use ondansetron first. If ondansetron ineffective use prochlorperazine. , Routine prochlorperazine (COMPAZINE) tablet 10 mg 10 mg, Oral, EVERY 6 HOURS PRN, Starting on Mon07/23/18 at 1631, Until Mon07/25/18 at 1532, Nausea, Nausea/Vomiting, If multiple antiemetics are ordered, use ondansetron first. If ondansetron ineffective use prochlorperazine. PO Preferred. If patient unable to take PO, may give IV if ordered., Routine sodium chloride 0.9 % flush 5 mL 5 mL, Intravenous, 2 TIMES DAILY, First dose on Mon07/23/18 at 2100, Until Discontinued, Routine Given 07/25/2018 8:30 AM EDT 5 mLs Given 07/24/2018 8:46 PM EDT 5 mLs Given 07/24/2018 8:50 AM EDT 5 mLs documented in this encounter Active and Recently Administered Medications Times are shown in EDT. Scheduled Medication Order 07/23/2018 07/24/2018 07/25/2018 acetaminophen (OFIRMEV) injection 1,000 mg (COMPLETED) 1,000 mg, Intravenous, at 400 mL/hr, Administer over 15 Minutes, EVERY 8 HOURS SCHEDULED, 3 doses, First dose on Mon07/23/18 at 1400, Last dose on Mon07/24/18 at 0600, Maximum dose of acetaminophen is 4000 mg from all sources in 24 hours., Routine, Is ketorolac (Toradol) IV contraindicated? No, Can this patient tolerate oral medications or suppositories? No 1328 (Given - Provider: Jocelynn Lynch RN)2139 (Given - Provider: Chelsea Andres, TO) 0541 (Given - Provider: Chelsea Andres RN) acetaminophen (OFIRMEV) injection 1,000 mg (CANCELED) 1,000 mg, Intravenous, at 400 mL/hr, Administer over 15 Minutes, EVERY 8 HOURS SCHEDULED, 3 doses, First dose (after last reorder) on Mon07/24/18 at 1300, Last dose on Mon07/25/18 at 0600, Maximum dose of acetaminophen is 4000 mg from all sources in 24 hours., Routine, Is ketorolac (Toradol) IV contraindicated? No, Can this patient tolerate oral medications or suppositories? No 1212 (Given - Provider: Haleigh Colon RN) ceFAZolin (ANCEF) 2g in dextrose 5% 100 mL (COMPLETED) 2 g, Intravenous, ONCE, 1 dose, On Mon07/23/18 at 0645, Administer over 30 Minutes, Indication for (Active or Suspected): Prophylaxis 0754 (Given - Provider: Celia Santos CRNA)1049 (Given - Provider: Celia Santos CRNA) enoxaparin (LOVENOX) injection 40 mg 40 mg, Subcutaneous, NIGHTLY, First dose on Mon07/23/18 at 2100, Until Discontinued, Routine 2139 (Given - Provider: Chelsea Andres, TO) 2046 (Given - Provider: Jocelynn Silva RN) fluticasone (FLONASE) 50 mcg/actuation nasal spray 1 spray 1 spray, Each Nare, DAILY, First dose on Mon07/23/18 at 1800, Until Discontinued, Routine 1800 (Not Given - Provider: Haleigh Colon RN - Reason: Medication not available) 0850 (Given - Provider: Haleigh Colon RN) 0830 (Given - Provider: Sita Nash RN) heparin (Porcine) subcutaneous injection 5,000 Units (COMPLETED) 5,000 Units, Subcutaneous, ONCE, 1 dose, On Mon07/23/18 at 0645, Give in preop, Routine 0726 (Given - Provider: Royer Diaz RN) ketorolac (TORADOL) injection 15 mg 15 mg, Intravenous, EVERY 6 HOURS SCHEDULED, 20 doses, First dose on Mon07/23/18 at 1215, Last dose on Mon07/28/18 at 0600, Routine 1223 (Given - Provider: Obie Espino RN)1730 (Given - Provider: Haleigh Colon RN)2319 (Given - Provider: Brandi Urrutia RN) 0541 (Given - Provider: Chelsea Andres RN)1212 (Given - Provider: Haleigh Colon RN)1737 (Given - Provider: Haleigh Colon RN)2347 (Given - Provider: Jocelynn Silva RN) 0530 (Given - Provider: Jocelynn Silva RN)1121 (Given - Provider: Sita Nash RN) lisinopril (PRINIVIL;ZESTRIL) tablet 20 mg 20 mg, Oral, DAILY, First dose on Mon07/24/18 at 0900, Until Discontinued, Routine 0850 (Given - Provider: Haleigh Colon RN) 0830 (Given - Provider: Sita Nash RN) meTOPROLOL (LOPRESSOR) tablet 12.5 mg 12.5 mg, Oral, EVERY 6 HOURS SCHEDULED, First dose on Mon07/23/18 at 1800, Until Discontinued, Routine 1730 (Given - Provider: Haleigh Colon RN)2319 (Given - Provider: Brandi Urrutia RN) 0542 (Given - Provider: Chelsea Andres RN)1212 (Given - Provider: Haleigh Colon, TO)1737 (Given - Provider: Haleigh Colon RN)2347 (Given - Provider: Jocelynn Silva, TO) 0530 (Given - Provider: Jocelynn Silva, TO)1121 (Given - Provider: Sita Nash, TO) polyethylene glycol (MIRALAX) packet 17 g 17 g, Oral, DAILY, First dose on Mon07/25/18 at 1145, Until Discontinued, Routine sodium chloride 0.9 % flush 5 mL 5 mL, Intravenous, 2 TIMES DAILY, First dose on Mon07/23/18 at 2100, Until Discontinued, Routine 2140 (Given - Provider: Chelsea Andres RN) 0850 (Given - Provider: Haleigh Colon, TO)2046 (Given - Provider: Jocelynn Silva, TO) 0830 (Given - Provider: Sita Nash RN) Continuous Medication Order 07/23/2018 07/24/2018 07/25/2018 HYDROmorphone (DILAUDID) 1 mg/mL NUTRITION TECH 50 mL (CANCELED) Intravenous, NUTRITION TECH ONLY, Starting on Mon07/23/18 at 1215, Until Mon07/24/18 at 1232 1206 (New Syringe/Cartridge - Provider: Obie Espino, TO) 1340 (Stopped - Provider: Haleigh Colon RN) lactated Ringers infusion 1,000 mL (CANCELED) 1,000 mL, at 100 mL/hr, Intravenous, CONTINUOUS, Starting on Mon07/23/18 at 0645, Until Mon07/23/18 at 1630, Day of Surgery (Day of Procedure) 0734 (New Bag - Provider: Celia Santos CRNA)1142 (Anesthesia Volume Adjustment - Provider: Celia Santos CRNA)1206 (New Bag - Provider: Obie Espino RN) lactated Ringers infusion 1,000 mL (CANCELED) 1,000 mL, at 100 mL/hr, Intravenous, CONTINUOUS, Starting on Mon07/23/18 at 1215, Until Mon07/25/18 at 0724 1632 (New Bag - Provider: Haleigh Colon, TO)2139 (New Bag - Provider: Chelsea Andres, TO) 0743 (Stopped - Provider: Sita Nash RN) PRN Medication Order 07/23/2018 07/24/2018 07/25/2018 acetaminophen (TYLENOL) tablet 650 mg (CANCELED) 650 mg, Oral, EVERY 4 HOURS PRN, Starting on Mon07/24/18 at 1231, Until Mon07/25/18 at 0723, Pain, Maximum dose of acetaminophen is 4000 mg from all sources in 24 hours., Routine 1410 (Given - Provider: Sandra Pretty RN)2121 (Given - Provider: Jocelynn Silva RN) 0145 (Given - Provider: Jocelynn Silva RN) acetaminophen-codeine (TYLENOL #3) 300-30 mg per tablet 2 tablet 2 tablet, Oral, EVERY 6 HOURS PRN, Pain, Starting on Mon07/25/18 at 0722, Until Mon07/25/18 at 1532 0832 (Given - Provider: Sita Nash RN)1322 (Given - Provider: Sita Nash RN - Comment: per team, OK to give early- pt being discharged and has 2 hour ride home) BUpivacaine (PF) (MARCAINE) 0.25 % (2.5 mg/mL) injection (CANCELED) ONCE PRN, Starting on Mon07/23/18 at 1100, Until Mon07/25/18 at 1532, Intra-Operative (Intra-Procedure), Routine 1100 (Given - Provider: Rochelle High MD) diphenhydrAMINE (BENADRYL) injection 25 mg 25 mg, Intravenous, EVERY 30 MIN PRN, 2 doses, Starting on Mon07/23/18 at 1631, Until Mon07/25/18 at 1532, Itching, May repeat dose in 30 minutes if pruritis not relieved. Per NUTRITION TECH order., Routine HYDROmorphone (DILAUDID) injection 0.2-0.4 mg (CANCELED) 0.2-0.4 mg, Intravenous, EVERY 5 MIN PRN, Starting on Mon07/23/18 at 1047, Until Mon07/23/18 at 1630, Pain, Give 0.2 mg every 5 minutes PRN for mild to moderate pain (1-5) Give 0.4 mg every 5 minutes PRN for moderate to severe pain (6-10). Hold for respiratory rate less than 10 per minute. Maximum dose 4 mg over one hour. If multiple pain medications are ordered, start with hydromorphone or morphine and use fentanyl for breakthrough pain., PACU Recovery, Routine 1147 (Given - Provider: Obie Espino, RN)1217 (Given - Provider: Obie Espino RN) lidocaine (XYLOCAINE) 10 mg/mL (1 %) injection 3 mg 3 mg (0.3 mL), Subcutaneous, ONCE PRN, 1 dose, Starting on Mon07/23/18 at 1631, Until Mon07/25/18 at 1532, for discomfort with PIV insertion, Routine nalOXone (NARCAN) injection 0.2 mg 0.2 mg, Intravenous, EVERY 1 MIN PRN, Starting on Mon07/23/18 at 1631, Until Mon07/25/18 at 1532, Opioid Reversal, May repeat every 60 seconds to increase respiratory rate. DO NOT exceed 2 mg total dose. Per NUTRITION TECH order., Routine ondansetron (ZOFRAN) injection 4-8 mg(Linked Group 1) 4-8 mg, Intravenous, EVERY 8 HOURS PRN, Starting on Mon07/23/18 at 1631, Until Mon07/25/18 at 1532, Nausea, Start with 4mg and if ineffective in 30 minutes, give an additional 4mg If multiple antiemetics are ordered, give ondansetron first. ondansetron (ZOFRAN) tablet 4-8 mg(Linked Group 1) 4-8 mg, Oral, EVERY 8 HOURS PRN, Starting on Mon07/23/18 at 1631, Until Mon07/25/18 at 1532, Nausea, Vomiting, If multiple antiemetics are ordered, use ondansetron first. PO Preferred. If patient unable to take PO, may give IV if ordered. Start with 4mg and if ineffective in 45 minutes, give an additional 4mg. If unable to take PO, may give IV., Routine oxyCODONE (ROXICODONE) immediate release tablet 5 mg 5 mg, Oral, EVERY 4 HOURS PRN, Starting on Mon07/25/18 at 0723, Until Mon07/25/18 at 1532, Pain, Give 5mg for pain 1-4; give 10mg for pain 5-10, To be given for breakthrough pain if no relieve from Tylenol with Codeine., Routine oxyCODONE (ROXICODONE) immediate release tablet 5-10 mg (CANCELED) 5-10 mg, Oral, EVERY 4 HOURS PRN, Starting on Mon07/24/18 at 1231, Until Mon07/25/18 at 0724, Pain, Give 5mg for pain 1-4; give 10mg for pain 5-10, Routine 1410 (Given - Provider: Sandra Pretty RN)1855 (Given - Provider: Haleigh Colon RN) prochlorperazine (COMPAZINE) injection 10 mg(Linked Group 2) 10 mg, Intravenous, EVERY 6 HOURS PRN, Starting on Mon07/23/18 at 1631, Until Mon07/25/18 at 1532, Nausea, Nausea/Vomiting, If multiple antiemetics are ordered, use ondansetron first. If ondansetron ineffective use prochlorperazine. , Routine prochlorperazine (COMPAZINE) tablet 10 mg(Linked Group 2) 10 mg, Oral, EVERY 6 HOURS PRN, Starting on Mon07/23/18 at 1631, Until Mon07/25/18 at 1532, Nausea, Nausea/Vomiting, If multiple antiemetics are ordered, use ondansetron first. If ondansetron ineffective use prochlorperazine. PO Preferred. If patient unable to take PO, may give IV if ordered., Routine sodium chloride 0.9 % flush 5-20 mL 5-20 mL, Intravenous, EVERY 1 MIN PRN, Starting on Mon07/23/18 at 1631, Until Mon07/25/18 at 1532, flush, Flush pertains to all indwelling lines. Flush per protocol found in the job aid using the link provided on this medication record., Routine Linked Groups Order Group 1: ondansetron (ZOFRAN) tablet 4-8 mgJump to med 4-8 mg, Oral, EVERY 8 HOURS PRN, Starting on Mon07/23/18 at 1631, Until Mon07/25/18 at 1532, Nausea, Vomiting, If multiple antiemetics are ordered, use ondansetron first. PO Preferred. If patient unable to take PO, may give IV if ordered. Start with 4mg and if ineffective in 45 minutes, give an additional 4mg. If unable to take PO, may give IV., Routine Or ondansetron (ZOFRAN) injection 4-8 mgJump to med 4-8 mg, Intravenous, EVERY 8 HOURS PRN, Starting on Mon07/23/18 at 1631, Until Mon07/25/18 at 1532, Nausea, Start with 4mg and if ineffective in 30 minutes, give an additional 4mg If multiple antiemetics are ordered, give ondansetron first. Group 2: prochlorperazine (COMPAZINE) tablet 10 mgJump to med 10 mg, Oral, EVERY 6 HOURS PRN, Starting on Mon07/23/18 at 1631, Until Mon07/25/18 at 1532, Nausea, Nausea/Vomiting, If multiple antiemetics are ordered, use ondansetron first. If ondansetron ineffective use prochlorperazine. PO Preferred. If patient unable to take PO, may give IV if ordered., Routine Or prochlorperazine (COMPAZINE) injection 10 mgJump to med 10 mg, Intravenous, EVERY 6 HOURS PRN, Starting on Mon07/23/18 at 1631, Until Mon07/25/18 at 1532, Nausea, Nausea/Vomiting, If multiple antiemetics are ordered, use ondansetron first. If ondansetron ineffective use prochlorperazine. , Routine documented in this encounter Care Teams Monitor Car Operator Relationship Specialty Start Date End Date Yoko Dhaliwal MD PCP - General Internal Medicine 06/25/18 11/21/24 documented as of this encounter
--- OUTSIDE RECORDS SUMMARY | 2024-12-13 01:23 | XMS_ITS | Encounter Summary ---
Author Organization [facility]ly [facility] [place] [address] Care Team Providers Care Medical Photographer Name Role Phone Yoko Dhaliwal MD Primary Care Provider Unavaila ble Encounter Details Date Type Department Care Team (Late st Contact Info) Description 12/24/2018 Ancillary Procedure Radiology Library at [facility] [place] [address] Gurvinder Melendez MD [facility] [place] [address] Social History Tobacco Use Types Packs/Day Years [...] AM EDT Hospital Encounter Non-Invasive Cardiology Lab [facility] [place] [address] Arrived documented as of this encounter Procedures Procedure Name Priority Date/Time Associated Diagnosis Comments FILM LIBRARY STORAGE ONLY NUCLEAR MEDICINE Routine 12/24/2018 12:00 AM EST documented in this encounter Results * Film Library- Storage Only nuclear medicine (12/24/2018 12:00 AM EST) Narrative LIN - 12/27/2018 10:10 PM EST This exam is for storage only and is auto-finalizing. Gurvinder Melendez MD G FILM LIBRARY ORD ERABLES Performing Organization Address City/State/[facility] Co de Phone Number [place], [place] documented in this encounter Visit Diagnoses Not on filedocumented in this encounter Care Teams Medical Photographer Relationship Specialty Start Date End Date Yoko Dhaliwal MD PCP - General Internal Medicine 06/25/18 11/21/24 documented as of this encounter
--- OUTSIDE RECORDS SUMMARY | 2024-12-13 01:23 | XMS_ITS | Encounter Summary ---
Author Organization [facility] [place] [address] Care Team Providers Care District Sales Representative Name Role Phone Yoko Dhaliwal MD Primary Care Provider Elias virk Encounter Details Date Type Department Care Team (Late st Contact Info) Description 12/26/2018 [place] [phone] Dalila May MD [address] [address] Social History Tobacco Use Types Packs/Day Years [...] encounter Miscellaneous Notes * Telephone Encounter - Dalila May - 12/26/2018 10:26 PM EST Telephone Triage Note Initial Contact Date: 12/26/18 Initial contact time: 9:45PM Referring Provider: RAFAL Nicole Patient Location: [facility] Presenting Symptoms per OSH: 68 yo male with history of cardiomyopathy (unclear etiology, EF 45% 2015) and recent GIB (05/30) whopresents to [facility] with acute onset chest pain starting at 1700 today. Patient is followed by Dr. Bautista at [facility] for several years and was noted to have a reduced EF of at at 45 % on 07/16/14. No record of cardiac catheterization that I can locate in records. He has had repeat NM stress test in 2014 at which point EF remained reduced at 45%. ECG from 04/27/2018 shows NSR with a LBBB and evidence of Q waves in anterolateral leads. Chest pain onset at rest, while reading newspaper ~ 1700. No associated symptoms. Brought in private vehicle to the ED via ~ 1900. Chest pain has resolved on time of arrival in the ED. ECG showsNSR with LBBB--does not appear to meet Sgarbossa's criteria for AMI. Initial troponin negative. Apparently had NM stress test on 12/24/18 showing EF 34%, hypokinesis of septal wall, normal perfusion with no perfusion defects. Per OSH provider, Dr. Bautista had planned for patient to obtain cardiac cath at [facility] next week. Currently, patient has received ASA 324 mg and chest pain resolved without nitro. He is reported razia feeling 'much better' than earlier today when he had his episode of chest pain. Past Medical History: - GIB in 05/30 with upper and lower endoscopies not showing source of bleeding; has received multiple transfusions at this time - cardiomyopathy of unclear etiology with EF newly reduced from 45% -->34% Pertinent Diagnostic Findings: Vitals: 154/77 77 bpm 97% on R/A RR20 EKG: NSR with LBBB; does not meet Sgarbossa's criteria; largely unchanged from 12/19/18 and 04/27/2018 Hgb 13.7; BUN/sCr 21/1.14, normal lytes Troponin: negative x 1 CXR: not performed BNP: 641 OSH Interventions: - ASA 324 mg x 1 Assessment/Recommendations: 68 yo male with history of cardiomyopathy (unclear etiology, EF 45% 2015) and recent GIB (05/30) whopresents to [facility] with acute onset chest pain starting at 1700 today. His EF per NM stress test appears to be reduced from prior, for which presumably he was planning to have a cardiac cath here at [facility] next week. Given his episode of recurrent rest chest pain, reasonable to transfer patient here onnon-emergent basis for ischemia evaluation via cath. His first troponin is negative, and given his ECG does not appear ischemic or changed from prior, less likely ACS. Moreover, given his relatively recent GIB, would not empirically start him on heparin and plavix; however, recommended that if tropo marcelina does elevate and/or he develops ischemic ECG changes, anticoagulation would be reasonable givenhis Hgb has stabilized. Would recommend double product control, trend serial ECGs and cardiac enzymes and transfer when bed available for cardiac catheterization. OSH provider to call back for deterioration in clinical status, elevation in cardiac biomarkers, or ECG changes. He is currently number 3 on the list of accepted patients for tomorrow. [facility] is faxing Cardiology notes and stress test results for further reference. Above recommendations were based on my discussion with OSH provider; I have not personally interviewed or examined this patient; I have personally reviewed EKGs. Dalila May MD Cardiovascular Disease Fellow, PGY-4 [facility] # [id number] documented in this encounter Plan of Treatment Upcoming Encounters Date Type Department Care Team (Late st Contact Info) Description 03/08/2025 10:00 AM EDT Hospital Encounter [place] [address] Arrived documented as of this encounter Visit Diagnoses Not on filedocumented in this encounter Care Teams District Sales Representative Relationship Specialty Start Date End Date Yoko Dhaliwal MD PCP - General Internal Medicine 06/25/18 11/21/24 documented as of this encounter
--- OUTSIDE RECORDS SUMMARY | 2024-12-13 01:23 | XMS_ITS | Encounter Summary ---
[place] [address] Care Team Providers Care College Or University Registrar Name Role Phone Yoko Dhaliwal MD Primary Care Provider Sona moose Encounter Details Date Type Department Care Team (Late st Contact Info) Description 09/04/2018 [place] [address] Alana Hobson Social History Tobacco Use Types Packs/Day Years [...] encounter Miscellaneous Notes * Telephone Encounter - Alana Hobson - 09/04/2018 1:36 PM EDT Putting correct information into patients procedure case for due next March. documented in this encounter Plan of Treatment Upcoming Encounters Date Type Department Care Team (Late st Contact Info) Description 03/08/2025 10:00 AM EDT Hospital Encounter Non-[place]vasive [place] [address] Arrived documented as of this encounter Visit Diagnoses Not on filedocumented in this encounter Care Teams College [employer] Registrar Relationship Specialty Start Date End Date Yoko Dhaliwal MD PCP - General Internal Medicine 06/25/18 11/21/24 documented as of this encounter
--- OUTSIDE RECORDS SUMMARY | 2024-12-13 01:23 | XMS_ITS | Encounter Summary ---
Author Organization [facility] Address [facility] [address] Care Team Providers Care Greaser And Oiler Name Role Phone Yoko Dhaliwal MD Primary Care Provider Elias virk Encounter Details Date Type Department Care Team (Latest Contact Info) Description 06/28/2018 7:11 AM EDT - 06/28/2018 5:24 PM EDT Hospital Encounter [place] [phone] Rafa Leslie MD [facility] [place] [address] Discharge Disposition: Home Social History Tobacco Use [...] BEDTIME 0 06/02/2018 fluticasone (FLONASE) 50 mcg/actuation [place], Suspension USE 2 SPRAYS NASALLY DAILY 3 [...] AM EDT Hospital Encounter Non-Invasive [place] [address] Arrived documented as of this encounter Procedures Procedure Name Priority Date/Time Associated Diagnosis Comments VIDEO CAPSULE ENDOSCOPY Routine 06/28/2018 12:47 PM EDT VIDEO CAPSULE ENDOSCOPY (WRVU 2.24) 06/28/2018 7:30 AM EDT anemia documented in this encounter Results * VIDEO CAPSULE ENDOSCOPY (06/28/2018 12:47 PM EDT) VIDEO CAPSULE ENDOSCOPY [facility] Endoscopy Procedure Date: 06/28/2018 12:47 PM ? Patient Name: Warren Noel ? Date of : 1950 ? Age: 68 ? Order #: [id number] ? Instrument Name: ? Procedure: ? Video [...] EDT Yoko Dhaliwal MD GENERAL SURGICAL ORD ERABLES Performing Organization Address City/State/[facility] Co de Phone Number [place] documented in this encounter Visit Diagnoses Not on filedocumented in this encounter Care Teams Greaser And Oiler Relationship Specialty Start Date End Date Yoko Dhaliwal MD PCP - General Internal Medicine 06/25/18 11/21/24 documented as of this encounter
--- OUTSIDE RECORDS SUMMARY | 2024-12-13 01:23 | XMS_ITS | Encounter Summary ---
Author Organization [facility] Address [facility] [place] [address] Care Team Providers Care Solution Coordinator Name Role Phone Yoko Dhaliwal MD Primary Care Provider Unavailmakenna ble Encounter Details Date Type Department Care Team (Latest Contact Info) Description 07/01/2018 - 07/01/2018 12:04 AM EDT Hospital Encounter Radiology Library at [facility] [place] [address] Neptali Dye MD [facility] [place] [address] Discharge Disposition: Home Social History Tobacco Use [...] BEDTIME 0 06/02/2018 fluticasone (FLONASE) 50 mcg/actuation [place], Suspension USE 2 SPRAYS NASALLY DAILY 3 [...] AM EDT Hospital Encounter Non-[place] [phone] Arrived documented as of this encounter Procedures Procedure Name Priority Date/Time Associated Diagnosis Comments FILM LIBRARY STORAGE ONLY DX CHEST Routine 07/01/2018 12:00 AM EDT documented in this encounter Results * Film Library- Storage Only DX Chest (07/01/2018 12:00 AM EDT) Narrative [facility] - 07/01/2018 10:12 AM EDT This exam is for storage only and is auto-finalizing. Neptali Dye MD IMG FILM LIBRARY ORD ERABLES [place], [place] documented in this encounter Visit Diagnoses Not on filedocumented in this encounter Care Teams Solution Coordinator Relationship Specialty Start Date End Date Yoko Dhaliwal MD PCP - General Internal Medicine 06/25/18 11/21/24 documented as of this encounter
--- OUTSIDE RECORDS SUMMARY | 2024-12-13 01:23 | XMS_ITS | Encounter Summary ---
Author Organization [facility] Address [facility] [place] [address] Care Team Providers Care Grinder And Plater Name Role Phone Yoko Dhaliwal MD Primary Care Provider Elias virk Encounter Details Date Type Department Care Team (Latest Contact Info) Description 07/01/2018 12:05 AM EDT - 07/01/2018 11:59 PM EDT Hospital Encounter Radiology Library at [facility] [place] [phone] Neptali Dye MD [facility] [place] [address] Discharge Disposition: Home Social History Tobacco Use [...] BEDTIME 0 06/02/2018 fluticasone (FLONASE) 50 mcg/actuation [place], Suspension USE 2 SPRAYS NASALLY DAILY 3 [...] AM EDT Hospital Encounter Non-Invasive [place] [address] Arrived documented as of this encounter Procedures Procedure Name Priority Date/Time Associated Diagnosis Comments FILM LIBRARY STORAGE ONLY CT ABDOMEN AND PELVIS Routine 07/01/2018 12:05 AM EDT documented in this encounter Results * Film Library- Storage Only CT Abdomen & Pelvis (07/01/2018 12:05 AM EDT) Narrative [facility] - 07/01/2018 10:12 AM EDT This exam is for storage only and is auto-finalizing. Neptali Dye MD IMG FILM LIBRARY ORD ERABLES [place], [place] documented in this encounter Visit Diagnoses Not on filedocumented in this encounter Care Teams Grinder And Plater Relationship Specialty Start Date End Date Yoko Dhaliwal MD PCP - General Internal Medicine 06/25/18 11/21/24 documented as of this encounter
--- OUTSIDE RECORDS SUMMARY | 2024-12-13 01:23 | XMS_ITS | Encounter Summary ---
[place] [address] Care Team Providers Care Customs Entry Writer Name Role Phone Yoko Dhaliwal MD Primary [...] Expiration Date Visits Re quested Visits Authorized [id number] 1 1 Encounter Details Date Type Department Care Team (Late st Contact Info) Description 07/23/2018 7:34 AM EDT Anesthesia [place] [address] Coco Nails MD Anesthesia Record Procedure Summary Procedure Name Responsible Anesthesiologist Anesthesia Start Time Anesthesia Stop Time @LAPAROSCOPIC ASSISTED SM. BOWEL RESECTION, SINGLE (WRVU 23.39) (Abdomen) Coco Nails MD 07/23/18 0734 07/23/18 1142 Events Date Time Event Comment 07/23/2018 0725 0734 AN Verify 0734 Start 0736 An Start Data 0743 An Induction 0749 An Intubation 0754 Anesthesia Ready 0817 Procedure Start 0820 Quick Note Insufflation co mplete 0822 Quick Note Patient did not tolerate insufflation, PVCs changed to bradycardia and hypotension, peak pressures 23mmHg at most. Desufflated. 0824 Quick Note Patients abdome n reinsufflated and patient tolerating better 0856 Break/Relief In Danya nguyen, SURGICAL GARMENT FITTER 0906 Quick Note Convert to open abdomen 0910 Break/Relief Out 1118 Procedure Stop 1128 Extubation/LMA Out Patient e xtubated when awake, airway clear, +ETCO2, FM oxygen, VSS. 1131 an stop data 1142 Recovery or ICU Handoff Cindi ent care was transferred to the destination unit staff after review of the patient's medical history, current anesthetic/surgical status and plan, according to the Provider Handoff Checklist. 1142 Stop Meds Name Total fentaNYL 100 mcg IV Lidocaine 60 mg Propofol 200 mg Rocuronium 80 mg PHENYLephrine 200 mcg ePHEDrine 22.5 mg Ondansetron 4 mg Dexamethasone 4 mg Neostigmine 4 mg Glycopyrrolate 0.4 mg ceFAZolin (ANCEF) 2g in dextrose 5% 100 mL 4 g HYDROmorphone 1.2 mg lactated Ringers infusion 1,000 mL 1,000 mL Lactated Ringers 100 mL * Agents Name O2 Air N2O Sevoflurane (et) * Blood No blood administrations on file. Lines, Drains, and Airways Type Details Placement Removal (RETIRED) Peripheral IV Line - Single Lumen 07/23/18; 0647; cephalic vein (lateral side of arm), right; mklt-pyj-mlcymw catheter system; 18 gauge, 1 in length; Renee Diaz RN; distraction, intradermal injection, tolerated well, appears comfortable; 07/25/18; 1328 07/23/18 0647 by Royer Diaz RN 07/25/18 1328 by Sita Charles RN ETT Mask Ventilation: Adjunct (2); ETT Type: Cuffed, Oral; ETT Size: 7.5 mm; Mac Blade: 4; Notes: Asleep, Pre-O2, Stylette; Attempts: 1; Laryngoscopy Grade: 2; ETT Placement Verified By: Auscultation, Capnometry; Secured at Teeth: 23 cm; Inserted by: Nicholas BLACKMAN ; Removal Date: 07/23/18; Removal Time: 1128 07/23/18 0754 by Celia Heller CRNA 07/23/18 1128 by Celia Heller CRNA (RETIRED) Peripheral IV Line - Single Lumen 07/23/18; 0802; cephalic vein (lateral side of arm), left; otrj-cue-imlavs catheter system; 18 gauge; celia johnson. corinna heller; removed inadvertently; 07/25/18; 0900 07/23/18 0802 by Celia Heller CRNA 07/25/18 0900 by Sita Charles RN Incision 07/23/18; 0816; abdo men; laparoscopic punctures (specify); 07/11/22 (LDA cleanup utility RA#[id number]); 1715 (LDA cleanup utility RA#[id number]) 07/23/18 0816 by Svitlana Briggs RN 07/11/22 1715 by Duncan Mroeno documented in this encounter Social History Tobacco Use Types Packs/Day Years [...] on file documented as of this encounter OR Notes * Anesthesia Postprocedure Evaluation - Coco Nails MD - 07/23/2018 11:59 AM EDT [facility] Department of Anesthesiology Post-procedure Note Patient: Warren Noel Procedure Summary Date Anesthesia Start Anesthesia Stop Room / Location 07/23/[address] [facility] OR [address] / [facility] MAIN OR Procedure Diagnosis Surgeon Responsible Provider @LAPAROSCOPIC ASSISTED SM. BOWEL RESECTION, SINGLE (WRVU 23.39) (N/A Abdomen); FLUROSCOPY:UP TO ONEHOUR (WRVU 0.17) (N/A Abdomen) (RETAINED ENDOSCOPIC CAPSULE) Eliza High MD Root, Kristen M, MD All Anesthesia Providers: Anesthesiologist: Coco Nails MD SURGICAL GARMENT FITTER: Celia Heller CRNA Most Recent Vitals: 07/23/18 1145 BP: 153/69 Pulse: (!) 103 Resp: 15 Temp: SpO2: 93% Pain 8 (07/23/18 1147) Patient Location: PACU/LAP Level of Consciousness: Awake and Alert Pain Management: Pain Being Addressed PONV: None Cardiovascular Status: Hemodynamically Stable Respiratory Status: Supplemental O2 (NC or FM) and Stable Respiratory Status Postoperative Fluid Status: Intravascular EUvolemia Possible Anesthetic Complications: NONE apparent at time of evaluation Final Primary Anesthesia Type: General (The anesthetic type performed was the same as planned.) Comments: * Anesthesia Preprocedure Evaluation - Coco Nails MD - 07/20/2018 3:32 PM EDT Pre-Anesthesia Evaluation for: Warren Noel a 68 y.o. male. Procedure(s): @LAPAROSCOPIC ASSISTED SM. BOWEL RESECTION, SINGLE (WRVU 23.39) FOREIGN BODY REMOVAL, DEEP, ABDOMEN (WRVU 2.74) Patient Active Problem List Diagnosis ??? Foreign body in small intestine No past medical history on file. Past Surgical History: Procedure Laterality Date ? ? PRG GI TRACT IMAGING, INTRALUMINAL, ESOPHAGUS THROUGH ILEUM, W INTERP & REPORT N/A 06/28/2018 VIDEO CAPSULE ENDOSCOPY performed by Rafa Leslie MD at [facility] ENDOSCOPY Social History Substance Use Topics ??? Smoking status: Former Smoker Quit date: 07/18/1983 ??? Smokeless tobacco: Not on file ??? Alcohol use Not on file History Drug Use Not on file Allergies Allergen Reactions ??? Influenza Virus Vaccine Bivalent Anaphylaxis Medications: MAR and/or home medications have been reviewed. Physical Exam: There were no vitals filed for this visit. There is no height or weight on file to calculate BMI. Airway Assessment: Mallampati: II TM distance: >3 FB Neck ROM: limited Prior cervical spine fusion, limited flexion Cardiovascular Assessment: Rhythm: regular Rate: normal cardiovascular exam normal Pulmonary Assessment: breath sounds clear to auscultation pulmonary exam normal Dental Assessment: - normal exam Misc Assessment: Anesthesia Plan: ASA 2 general, with a(n) intravenous induction Warren Noel is a 68 y.o. 93kg male former smoker with h/o prior c-spine fusion, HTN (lisinopril, toprol) and recent GI bleed (April 2018, Hgb to 7 requiring 2U PRBC - EGD and colo w/o etiology) and now s/p video capsule endoscopy complicated by retained capsule and ongoing abd pain who presents for Procedure(s): @LAPAROSCOPIC ASSISTED SM. BOWEL RESECTION, SINGLE (WRVU 23.39) FOREIGN BODY REMOVAL, DEEP, ABDOMEN (WRVU 2.74) with Dr. High. Prior anesthetic history: No records on file. Denies prior anesthetic complications or family history of anesthetic complications. Appropriately NPO. Well controlled GERD. No recent URI. METS >4 w/o cardiac symptoms. Plan for GA; standard ASA monitoring. The patient was informed of the risks, benefits and alternatives of anesthesia. These risks included, but were not limited to, post-operative nausea and/or vomiting, pain, sore throat, dental/lip trauma, and other rare but serious complications such as major organ damage, awareness, severe allergicreactions, position-related nerve injuries, and need blood transfusions. All questions sought and answered. Consent was signed and placed in chart. Region - Other Informed Consent: Anesthetic plan and risks discussed with patient. Plan discussed with attending and SURGICAL GARMENT FITTER. PAT Staff Note documented in this encounter Plan of Treatment Upcoming Encounters Date Type Department Care Team (Late st Contact Info) Description 03/08/2025 10:00 AM EDT Hospital Encounter [place] [address] Arrived documented as of this encounter Visit Diagnoses Not on filedocumented in this encounter Administered Medications Inactive Administered Medications - up to 3 most recent administrations Medication Order MAR Action Action Date Dose Rate Site ceFAZolin (ANCEF) 2g in dextrose 5% 100 mL 2 g, Intravenous, ONCE, 1 dose, On Mon07/23/18 at 0645, Administer over 30 Minutes, Indication for (Active or Suspected): Prophylaxis Given 07/23/2018 10:49 AM EDT 2 g Given 07/23/2018 7:54 AM EDT 2 g dexamethasone (DECADRON) injection PRN, Starting on Mon07/23/18 at 0743, Until Mon07/23/18 at 1142, Anesthesia Intra-op, Routine Given 07/23/2018 7:43 AM EDT 4 mg ePHEDrine 5 mg/mL multi-dose injection PRN, Starting on Mon07/23/18 at 0822, Until Mon07/23/18 at 1142, Anesthesia Intra-op, Routine Given 07/23/2018 10:23 AM EDT 2.5 mg Given 07/23/2018 9:27 AM EDT 5 mg Given 07/23/2018 8:50 AM EDT 5 mg fentaNYL 50 mcg/mL multi-dose injection PRN, Starting on Mon07/23/18 at 0740, Until Mon07/23/18 at 1142, Pain, Anesthesia Intra-op, Routine Given 07/23/2018 8:30 AM EDT 25 mcg Given 07/23/2018 8:16 AM EDT 25 mcg Given 07/23/2018 7:40 AM EDT 50 mcg glycopyrrolate (ROBINUL) multi-dose injection PRN, Starting on Mon07/23/18 at 1057, Until Mon07/23/18 at 1142, Anesthesia Intra-op, Routine Given 07/23/2018 10:57 AM EDT 0.4 mg HYDROmorphone (DILAUDID) injection PRN, Starting on Mon07/23/18 at 0903, Until Mon07/23/18 at 1142, Pain, Anesthesia Intra-op, Routine Given 07/23/2018 10:42 AM EDT 0.2 mg Given 07/23/2018 10:32 AM EDT 0.2 mg Given 07/23/2018 9:57 AM EDT 0.2 mg lactated Ringers infusion 1,000 mL 1,000 mL, at 100 mL/hr, Intravenous, CONTINUOUS, Starting on Mon07/23/18 at 0645, Until Mon07/23/18 at 1630, Day of Surgery (Day of Procedure) New Bag 07/23/2018 12:06 PM EDT 1,000 mLs 100 mL/hr New Bag 07/23/2018 7:34 AM EDT lactated Ringers infusion CONTINUOUS PRN, Starting on Mon07/23/18 at 0754, Until Mon07/23/18 at 1142, Anesthesia Intra-op New Bag 07/23/2018 7:54 AM EDT lidocaine (PF) (XYLOCAINE) 100 mg/5 mL (2 %) injection PRN, Starting on Mon07/23/18 at 0743, Until Mon07/23/18 at 1142, Anesthesia Intra-op, Routine Given 07/23/2018 7:43 AM EDT 60 mg neostigmine (BLOXIVERZ) injection PRN, Starting on Mon07/23/18 at 1057, Until Mon07/23/18 at 1142, Anesthesia Intra-op, Routine Given 07/23/2018 10:57 AM EDT 4 mg ondansetron (ZOFRAN) injection PRN, Starting on Mon07/23/18 at 1057, Until Mon07/23/18 at 1142, Nausea, Anesthesia Intra-op, Routine Given 07/23/2018 10:57 AM EDT 4 mg PHENYLephrine in NS (PF) (LM-SYNEPHRINE) 0.8 mg/10 mL (80 mcg/mL) multi-dose injection Syrg PRN, Starting on Mon07/23/18 at 0850, Until Mon07/23/18 at 1142, Anesthesia Intra-op, Routine Given 07/23/2018 10:23 AM EDT 40 mcg Given 07/23/2018 9:27 AM EDT 80 mcg Given 07/23/2018 8:50 AM EDT 80 mcg propofol (DIPRIVAN) 10 mg/mL bolus injection (Anesthesia) PRN, Starting on Mon07/23/18 at 0743, Until Mon07/23/18 at 1142, Anesthesia Intra-op Given 07/23/2018 7:46 AM EDT 50 mg Given 07/23/2018 7:43 AM EDT 150 mg rocuronium (ZEMURON) multi-dose injection PRN, Starting on Mon07/23/18 at 0744, Until Mon07/23/18 at 1142, Anesthesia Intra-op, Routine Given 07/23/2018 10:32 AM EDT 10 mg Given 07/23/2018 9:19 AM EDT 20 mg Given 07/23/2018 7:44 AM EDT 50 mg documented in this encounter Care Teams Customs Entry Writer Relationship Specialty Start Date End Date Yoko Dhaliwal MD PCP - General Internal Medicine 06/25/18 11/21/24 documented as of this encounter
--- OUTSIDE RECORDS SUMMARY | 2024-12-13 01:23 | XMS_ITS | Encounter Summary ---
Author Organization [facility] [place] [address] Care Team Providers Care Marbleizing Machine Tender Name Role Phone Yoko Dhaliwal MD Primary Care Provider Unavaila ble Encounter Details Date Type Department Care Team (Late st Contact Info) Description 12/26/2018 Ancillary Procedure Radiology Library at [facility] [place] [address] Gurvinder Melendez MD [facility] [place] [address] Social History Tobacco Use Types Packs/Day Years [...] AM EDT Hospital Encounter Non-Invasive Cardiology Lab [facility] [place] [address] Arrived documented as of this encounter Procedures Procedure Name Priority Date/Time Associated Diagnosis Comments FILM LIBRARY STORAGE ONLY DX CHEST Routine 12/26/2018 12:00 AM EST documented in this encounter Results * Film Library- Storage Only DX Chest (12/26/2018 12:00 AM EST) Narrative [facility] - 12/27/2018 10:11 PM EST This exam is for storage only and is auto-finalizing. Gurvinder Melendez MD IMG FILM LIBRARY ORD ERABLES Performing Organization Address City/State/[facility] Co de Phone Number [place], [place] documented in this encounter Visit Diagnoses Not on filedocumented in this encounter Care Teams Marbleizing Machine Tender Relationship Specialty Start Date End Date Yoko Dhaliwal MD PCP - General Internal Medicine 06/25/18 11/21/24 documented as of this encounter
--- OUTSIDE RECORDS SUMMARY | 2024-12-13 01:23 | XMS_ITS | Encounter Summary ---
Author Organization [facility] [place] [address] Care Team Providers Care Midwife Name Role Phone Yoko Dhaliwal MD Primary Care Provider Elias virk Encounter Details Date Type Department Care Team (Late st Contact Info) Description 12/27/2018 Telephone Cardiology at [address] [phone] Myrna Stewart, [facility] [address] Social History Tobacco Use Types Packs/Day Years [...] encounter Miscellaneous Notes * Telephone Encounter - Myrna Stewart APRN - 12/27/2018 11:18 AM EST Received a phone call from the hospitalist caring for Mr. Noel at [facility]. She asked if the patientcould eat, as he has been NPO for 16 hours. I reviewed that I cannot definitively predict when a bed will become available for Mr. Noel, but that if he eats and is assigned a bed within the next few hours, he will have to wait until tomorrow for a cardiac cath. The hospitalist reviewed that he has been stable, free of chest pain, and his troponins have been flat at <0.02. Therefore, she would discuss with the patient- if he prefers to eat, his cath would need to be deferred until tomorrowif he is assigned a bed early enough today to potentially cath today. Myrna Stewart, MSN, DIESEL TECHNOLOGY INSTRUCTOR-BC, SEAFOOD MANAGER [facility] documented in this encounter Plan of Treatment Upcoming Encounters Date Type Department Care Team (Late st Contact Info) Description 03/08/2025 10:00 AM EDT Hospital Encounter Non-[place]vasive [place] [address] Arrived documented as of this encounter Visit Diagnoses Not on filedocumented in this encounter Care Teams Midwife Relationship Specialty Start Date End Date Yoko Dhaliwal MD PCP - General Internal Medicine 06/25/18 11/21/24 documented as of this encounter
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
--- OUTSIDE RECORDS SUMMARY | 2024-12-13 01:23 | XMS_ITS | Encounter Summary ---
Author Organization [facility] Address [facility] [place] [address] Care Team Providers Care Chopping Machine Operator Name Role Phone Yoko Dhaliwal MD Primary Care Provider Elias ble Encounter Details Date Type Department Care Team (Latest Contact Info) Description 07/18/2018 1:45 PM EDT - 07/18/2018 11:59 PM EDT Hospital Encounter XRay at [address] [place] [address] Eliza High MD [facility] [place] [address] Chronic abdominal pain Discharge Disposition: Home Social History Tobacco Use Types Packs/Day Years Used Date Smoking Tobacco: Former Cigarettes Q uit: 07/18/1983 Sex and Gender Information Value Date Recorded [...] BEDTIME 0 06/02/2018 fluticasone (FLONASE) 50 mcg/actuation [place], Suspension USE 2 SPRAYS NASALLY DAILY 3 [...] AM EDT Hospital Encounter [place] [address] Arrived documented as of this encounter Procedures Procedure Name Priority Date/Time Associated Diagnosis Comments XR ABDOMEN FLAT AND UPRIGHT Routine 07/18/2018 1:59 PM EDT Chronic abdominal pain documented in this encounter Results * XR Abdomen Flat & Upright (07/18/2018 1:59 PM EDT) Anatomical Region Laterality Modality Abdomen N/A Digital Radiogra phy Impressions 07/18/2018 2:35 PM EDT 1. ??Ovoid radiopaque capsule overlies the central mid right hemiabdomen, projecting slightly more cephalad in location than on the comparison 07/01/2018 CT, cannot determine certainty whether this continues to lie within the small bowel or in the large bowel/transverse colon. 2. ??A few nonspecific mildly dilated air-filled loops of small bowel in the left mid abdomen, may represent resolving partial small bowel obstruction or ileus. 3. ??No intraperitoneal free air identified. Narrative 07/18/2018 2:35 PM EDT EXAMINATION: XR ABDOMEN FLAT AND UPRIGHT CLINICAL HISTORY: Assess for retained capsule. ??PLEASE DO CROSS TABLE LATERAL, AP supine and ??xtl for foreign body TECHNIQUE: AP supine and cross table lateral radiographs of the abdomen. COMPARISON: CT abdomen and pelvis from [facility] dated 07/01/2018. FINDINGS: An ovoid radiopaque capsule projects over the central mid right hemiabdomen, just inferior to the L1-L2 intervertebral disc space, slightly more cephalad than was seen on the 07/01/2018 CT. A few dilated air-filled loops of small bowel are seen in the left mid abdomen measuring up to 33 mm in diameter with air-fluid levels. Air and stool are noted in nondilated colon to the level of the distal sigmoid colon. No intraperitoneal free air is seen on these views. Visualized lung bases are clear. No interval osseous findings, including again noted multilevel degenerative changes throughout the lumbar and imaged lower thoracic spine, and postsurgical changes of L3-L5 posterior laminectomy, L4-S1 fusion with bilateral pedicle screw and randal fixation with right lateral bone grafting. Minimal retrolisthesis of L4 on L5 and mild anterolisthesis of L5 on S1 appear unchanged. Procedure Note Erika Rich MD - 07/18/2018 EXAMINATION: XR ABDOMEN FLAT AND UPRIGHT CLINICAL HISTORY: Assess for retained capsule. PLEASE DO CROSS TABLELATERAL, AP supine and xtl for foreign body TECHNIQUE: AP supine and cross table lateral radiographs of the abdomen. COMPARISON: CT abdomen and pelvis from [facility] dated07/01/2018. FINDINGS: An ovoid radiopaque capsule projects over the central mid righthemiabdomen, just inferior to the L1-L2 intervertebral disc space, slightly morecephalad than was seen on the 07/01/2018 CT. A few dilated air-filled loops of smallbowel are seen in the left mid abdomen measuring up to 33 mm in diameter with air-fluid levels. Air and stool are noted in nondilated colon to the levelof the distal sigmoid colon. No intraperitoneal free air is seen on theseviews. Visualized lung bases are clear. No interval osseous findings, includingagain noted multilevel degenerative changes throughout the lumbar and imagedlower thoracic spine, and postsurgical changes of L3-L5 posterior laminectomy,L4-S1 fusion with bilateral pedicle screw and randal fixation with right lateralbone grafting. Minimal retrolisthesis of L4 on L5 and mild anterolisthesis ofL5 on S1 appear unchanged. IMPRESSION 1. Ovoid radiopaque capsule overlies the central mid right hemiabdomen, projecting slightly more cephalad in location than on the comparison07/01/2018 CT, cannot determine certainty whether this continues to lie within thesmall bowel or in the large bowel/transverse colon. 2. A few nonspecific mildly dilated air-filled loops of small bowel inthe left mid abdomen, may represent resolving partial small bowel obstruction orileus. 3. No intraperitoneal free air identified. Eliza High MD IMG DX ORDERABLES documented in this encounter Visit Diagnoses Diagnosis Chronic abdominal pain Abdominal pain, unspecified site documented in this encounter Care Teams Chopping Machine Operator Relationship Specialty Start Date End Date Yoko Dhaliwal MD PCP - General Internal Medicine 06/25/18 11/21/24 documented as of this encounter
--- OUTSIDE RECORDS SUMMARY | 2024-12-13 01:23 | XMS_ITS | Encounter Summary ---
Author Organization [place] [id number] Care Team Providers Care Hand Paint Mixer Name Role Phone Yoko Dhaliwal MD Primary Care Provider Unavaila ble Encounter Details Date Type Department Care Team (Late st Contact Info) Description 07/01/2018 Telephone [place] [address] Hema Reynolds MD Social History Tobacco Use Types Packs/Day Years Used Date Smoking Tobacco: Never Assessed Sex and Gender Information Value Date Recorded Sex Assigned at Not on file Gender Identity Not on file Sexual Orientation Not on file documented as of this encounter Miscellaneous Notes * Telephone Encounter - Hema Reynolds MD - 07/01/2018 11:45 AM EDT Transfer Center Call: I received a call from Dr. Vyas at [facility] in [facility]. Briefly, this is a 68 y/o M who had a VCE placed 06/28, was doing well until today when he presentedw/ nausea vomiting and abd pain. Got CT A/P showing small bowel obstruction w/ transition point andcapsule retention in the proximal RLQ small bowel. An NG tube has been placed for decompression andsurgery consultation asked for GI input. VS: Stable, afebrile Exam per provider calling: Distended abdomen Labs: Not given Based on the information provided to me that has been outlined above, the general recommendations for this type of patient is NG tube to suction, bowel rest, IV fluids. Reimage in 24 hours and if no improvement radiographically and clinically then he will likely require ex-lap. This is not an official consult, as my recommendations are limited by my inability to interview andexamine the patient as well as personally review the medical record, imaging, and laboratory findings. documented in this encounter Plan of Treatment Upcoming Encounters Date Type Department Care Team (Late st Contact Info) Description 03/08/2025 10:00 AM EDT Hospital Encounter Non-Invasive [place]iology [place] [address] Arrived documented as of this encounter Visit Diagnoses Not on filedocumented in this encounter Care Teams Hand Paint Mixer Relationship Specialty Start Date End Date Yoko Dhaliwal MD PCP - General Internal Medicine 06/25/18 11/21/24 documented as of this encounter
--- OUTSIDE RECORDS SUMMARY | 2024-12-13 01:23 | XMS_ITS | Encounter Summary ---
[place] [address] Care Team Providers Care Tow Picker Name Role Phone Yoko Dhaliwal MD Primary Care Provider Sona ble Encounter Details Date Type Department Care Team (Late st Contact Info) Description 07/18/2018 Telephone [place] [address] Eliza High MD [facility] [place] [address] Social History Tobacco Use Types Packs/Day Years Used Date Smoking Tobacco: Former Cigarettes Q uit: 07/18/1983 Sex and Gender Information Value Date Recorded Sex Assigned at Not on file Gender Identity Not on file Sexual Orientation Not on file documented as of this encounter Miscellaneous Notes * Telephone Encounter - Eliza High MD - 07/18/2018 5:13 PM EDT Called and discussed image findings, and plan for laparoscopic foreign body removal, small bowel resection to determine source of obstruction. All questions answered. documented in this encounter Plan of Treatment Upcoming Encounters Date Type Department Care Team (Late st Contact Info) Description 03/08/2025 10:00 AM EDT Hospital Encounter Non-Invasive [place] [address] Arrived documented as of this encounter Visit Diagnoses Not on filedocumented in this encounter Care Teams Tow Picker Relationship Specialty Start Date End Date Yoko Dhaliwal MD PCP - General Internal Medicine 06/25/18 11/21/24 documented as of this encounter
--- OUTSIDE RECORDS SUMMARY | 2024-12-13 01:23 | XMS_ITS | Encounter Summary ---
Author [place] [address] Care Team Providers Care Graphic User Interface Designer Name Role Phone Yoko Dhaliwal MD Primary Care Provider Unavaila ble Reason for Visit * Reason Comments Follow-up Encounter Details Date Type Department Care Team (Late st Contact Info) Description 08/15/2018 11:00 AM EDT Office Visit [place] [address] Eliza High MD [facility] [address] [place] [address] Status post small bowel resection Social History Tobacco Use Types Packs/Day Years [...] Sign Reading Time Taken Comments Blood Pressure - - Pulse - - Temperature - - Respiratory Rate - - Oxygen Saturation - - Inhaled Oxygen Concentration - - Weight 93 kg (205 lb) 08/15/2018 10:52 AM EDT Height - - Body Mass Index 29.41 08/13/2018 12:58 PM EDT documented in this encounter Progress Notes * Eliza High MD - 08/15/2018 11:00 AM EDT Warren Noel returns one month following his laparoscopic converted to open small bowel resection for a retained capsule on 07/23/18. Two areas of stricuture were removed. The pathology returned: Small bowel, resection: - Segment of small bowel with two strictures, hyperplasia and fibrosis of the ??muscularis mucosae and transmural lymphoid aggregates in the area of stricture ? (see ??Note). NOTE: ??Intestinal mucosa shows regenerative change in the area of strictures. No ??evidence of dysplasia or granuloma. The findings are nonspecific, however they may ??be compatible with IBD in a proper clinical context after exclusion of specific ??etiologies. He has been evaluated for GI. He states he is now essentially asymptomatic and has resumed most of his usual activities. On physical examination, his abdomen is soft and nontender. His trocar incisions and his midline incision are healing well. One piece of suture was removed. Overall, he is doing quite well. We discussed that his hemoglobin has gone up to 11. He will otherwise follow up with his PCP and GI. He knows to contact me if further issues, and I will otherwise follow up with him on a prn basis. documented in this encounter Plan of Treatment Upcoming Encounters Date Type Department Care Team (Late st Contact Info) Description 03/08/2025 10:00 AM EDT Hospital Encounter Non-[place] [address] Arrived documented as of this encounter Visit Diagnoses Diagnosis Status post small bowel resection Other postprocedural status documented in this encounter Care Teams Graphic User Interface Designer Relationship Specialty Start Date End Date Yoko Dhaliwal MD PCP - General Internal Medicine 06/25/18 11/21/24 documented as of this encounter
--- OUTSIDE RECORDS SUMMARY | 2024-12-13 01:23 | XMS_ITS | Encounter Summary ---
[place] [address] Care Team Providers Care Sr. Manager Corporate Communications Name Role Phone Yoko Dhaliwal MD Primary Care Provider Unavaila ble Reason for Referral * Consultation (Routine) - Closed Specialty Diagnoses / Procedures Referred By Eric jackson Referred To Contact Gastroenterology Diagnoses Small bowel stricture Eliza High MD [facility] [place] [address] [facility] [address] [place] [address] Referral ID Status Reason Start Date Expiration Date V isits Requested Visits Authorized [id number] Closed Consult, Test & Treat 07/30/2018 07/30/2019 1 1 Encounter Details Date Type Department Care Team (Late st Contact Info) Description 07/30/2018 Telephone [place] [address] Eliza High MD [facility] [place] [address] Social History Tobacco Use Types Packs/Day Years [...] Telephone Encounter - Eliza High MD - 07/30/2018 1:28 PM EDT Called to review patient's pathology. He states he is doing well after surgery without any major concerns. This showed: DIAGNOSIS Small bowel, resection: - Segment of small bowel with two strictures, hyperplasia and fibrosis of the ??muscularis mucosae and transmural lymphoid aggregates in the area of stricture ? (see ??Note). NOTE: ??Colonic mucosa shows regenerative change in the area of strictures. No ??evidence of dysplasia or granuloma. The findings are nonspecific, however they may ??be compatible with IBD in a proper clinical context after exclusion of specific ??etiologies. (Assume the colonic mucosa should say SB mucosa). I will have him follow up with GI regarding the possible diagnosis of IBD. All questions answered. documented in this encounter Plan of Treatment Upcoming Encounters Date Type Department Care Team (Late st Contact Info) Description 03/08/2025 10:00 AM EDT Hospital Encounter Non-[place] [phone] Arrived Scheduled Referrals Name Type Priority Associated Diagnoses Order Schedule Referral to Gastroenterology Outpatient Referral Routine Small bowel stricture Ordered: 07/30/2018 documented as of this encounter Visit Diagnoses Diagnosis Small bowel stricture Unspecified intestinal obstruction documented in this encounter Care Teams Sr. Manager Corporate Communications Relationship Specialty Start Date End Date Yoko Dhaliwal MD PCP - General Internal Medicine 06/25/18 11/21/24 documented as of this encounter
--- OUTSIDE RECORDS SUMMARY | 2024-12-13 01:23 | XMS_ITS | Encounter Summary ---
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 1632 (New Bag - Provider: Haleigh Colon RN)2139 (New Bag - Provider: Chelsea Andres RN) 0743 (Stopped - Provider: Sita Nash RN) [...] 30 minutes if pruritis not relieved. Per CHOCOLATE PRODUCTION MACHINE OPERATOR order., Routine HYDROmorphone (DILAUDID) injection 0.2-0.4 mg [...] NOT exceed 2 mg total dose. Per CHOCOLATE PRODUCTION MACHINE OPERATOR order., Routine ondansetron (ZOFRAN) injection 4-8 mg(Linked [...] Oral, EVERY 4 HOURS PRN, Starting on Tu07/24/18 at 1231, Until Mon07/25/18 at 0724, Pain, [...] Intravenous, EVERY 8 HOURS PRN, Starting on 07/23/18 at 1631, Until Mon07/25/18 at 1532, Nausea, [...] Routine documented in this encounter Care Teams Asbestos Removal Worker Relationship Specialty Start Date End Date Yoko Dhaliwal MD PCP - General Internal Medicine 06/25/18 11/21/24 documented as of this encounter
--- OUTSIDE RECORDS SUMMARY | 2024-12-13 01:23 | XMS_ITS | Encounter Summary ---
Author Organization [facility] Address [facility] [place] [address] Care Team Providers Care Stamps Or Coins Salesperson Name Role Phone Yoko Dhaliwal MD Primary Care Provider Unavaila ble Encounter Details Date Type Department Care Team (Late st Contact Info) Description 08/28/2018 Telephone Gastroenterology at [facility] [place] [phone] Susi Olivia MD [facility] [place] [address] Social History Tobacco Use Types Packs/Day Years [...] encounter Miscellaneous Notes * Telephone Encounter - Susi Olivia MD - 08/28/2018 9:13 AM EDT I left a message with Dr. Dhaliwal's RN Milagros. Typically we give Venofer 200mg weekly for 4 doses, recheck Hgb/Hct and iron studies, if not improving would give additional Venofer 200mg weekly x 4 doses. documented in this encounter Plan of Treatment Upcoming Encounters Date Type Department Care Team (Late st Contact Info) Description 03/08/2025 10:00 AM EDT Hospital Encounter Non-[place] [address] Arrived documented as of this encounter Visit Diagnoses Not on filedocumented in this encounter Care Teams Stamps Or Coins Salesperson Relationship Specialty Start Date End Date Yoko Dhaliwal MD PCP - General Internal Medicine 06/25/18 11/21/24 documented as of this encounter
--- OUTSIDE RECORDS SUMMARY | 2024-12-13 01:23 | XMS_ITS | Encounter Summary ---
[place] [address] Care Team Providers Care Kier Hand Name Role Phone Yoko Dhaliwal MD Primary Care Provider Sona ble Encounter Details Date Type Department Care Team (Late st Contact Info) Description 12/26/2018 External [place] [address] Social History Tobacco Use Types Packs/Day Years [...] AM EDT Hospital Encounter [place] [phone] Arrived documented as of this encounter Procedures Procedure Name Priority Date/Time Associated Diagnosis Comments ECG SCAN Routine 12/26/2018 ECG SCAN Routine 12/26/2018 ECG SCAN Routine 12/26/2018 documented in this encounter Results * Scan Doc: ECG (12/26/2018) Historical Provider MD MEDIA MGR SCAN EX T ORDR/RSLT * Scan Doc: ECG (12/26/2018) Historical Provider MD MEDIA MGR SCAN EX T ORDR/RSLT * Scan Doc: ECG (12/26/2018) Historical Provider MD MEDIA MGR SCAN EX T ORDR/RSLT documented in this encounter Visit Diagnoses Not on filedocumented in this encounter Care Teams Kier Hand Relationship Specialty Start Date End Date Yoko Dhaliwal MD PCP - General Internal Medicine 06/25/18 11/21/24 documented as of this encounter
--- OUTSIDE RECORDS SUMMARY | 2024-12-13 01:23 | XMS_ITS | Encounter Summary ---
[place] [address] Care Team Providers Care Supervisor Microwave Name Role Phone Yoko Dhaliwal MD Primary Care Provider Unavaila ble Encounter Details Date Type Department Care Team (Latest Contact Info) Description 08/13/2018 2:35 PM EDT Laboratory Appointment Lab [address] [place] [address] Anemia, unspecified type Social History Tobacco Use [...] AM EDT Hospital Encounter Non[place] [phone] Arrived documented as of this encounter Procedures Procedure Name Priority Date/Time Associated Diagnosis Comments HEMOGRAM Routine 08/13/2018 2:42 PM EDT Anemia, unspecified type IRON AND TIBC Routine 08/13/2018 2:42 PM EDT Anemia, unspecified type TISSUE TRANSGLUTAMINASE, IGA Routine 08/13/2018 2:42 PM EDT Anemia, unspecified type IGA Routine 08/13/2018 2:42 PM EDT Anemia, unspecified type FERRITIN Routine 08/13/2018 2:42 PM EDT Anemia, unspecified type documented in this encounter Results * (ABNORMAL) Hemogram (08/13/2018 2:42 PM EDT) White Blood Cell 7.1 4.0 - 9.5 x10(3)/mc L [facility] Red Blood Cell 4.70 4.58 - 5.54 x10(6)/mc L [facility] Hemoglobin 11.0(L) 13.7 - 16.5 gm/dL [facility] Hematocrit 36.7(L) 40.5 - 48.5 % [facility] Mean Cell Volume 78.1(L) 82.9 - 93.1 fL [facility] Mean Cell Hemoglobin 23.4(L) 27.5 - 32.1 pg [facility] Mean Cell Hemoglobin Concentration 30.0(L) 32.0 - 35.7 gm/dL [facility] Platelet 286 145 - 357 x10(3)/mc L [facility] RDW Standard Deviation 45.0 36.0 - [address] [facility] RDW coefficient of variation 15.9(H) 11.4 - 13.8 % [facility] Mean Platelet Volume 11.4 7.6 - 12.9 [facility] NRBC% auto 0.0 % [facility] NRBC Absolute 0.000 0.000 - 0.000 x10(3)/ L [facility] Blood specimen (specimen) 08/13/2018 2:42 PM EDT 08/13/2018 2:57 PM EDT Narrative Resulting Agency Comment Spec In Lab Susi Olivia MD HEMATOLOGY ORDER ADRIEN Performing Organization Address City/[facility]/ZIP Co de Phone Number [facility] [place] [address] * Tissue transglutaminase, IgA (08/13/2018 2:42 PM EDT) [facility] TTG IgA Ab <1.2 <4.0 (Negative) unit/mL [facility] Comment: Test Performed by: [place] [address] Blood specimen (specimen) 08/13/2018 2:42 PM EDT 08/14/2018 8:39 AM EDT Narrative Resulting Agency Comment Spec In Lab Susi Olivia MD IMMUNOLOGY ORDER ADRIEN Performing Organization Address City/[facility]/ZIP Co de Phone Number [facility] [place] [address] * IgA (08/13/2018 2:42 PM EDT) [facility] IgA 139 70 - 400 mg/dL [facility] Blood specimen (specimen) 08/13/2018 2:42 PM EDT 08/13/2018 2:57 PM EDT Narrative Resulting Agency Comment Spec In Lab Susi Olivia MD CHEMISTRY ORDERA BLES Performing Organization Address City/[facility]/ZIP Co de Phone Number [facility] [place] [address] * (ABNORMAL) Ferritin (08/13/2018 2:42 PM EDT) [facility] Ferritin 18(L) 30 - 400 ng/mL [facility] Comment: Pediatric reference ranges not verified at [facility], interpret with caution. Reference ranges for females greater than 50 years of age approach values for men, i.e., 30-400 ng/mL. Blood specimen (specimen) 08/13/2018 2:42 PM EDT 08/13/2018 2:57 PM EDT Narrative Resulting Agency Comment Spec In Lab Susi Olivia MD CHEMISTRY ORDERA BLES Performing Organization Address [facility] Co de Phone Number [facility] [place] [address] * (ABNORMAL) Iron and TIBC (08/13/2018 2:42 PM EDT) Iron 40(L) 45 - 160 mcg/dL [facility] TIBC 374 250 - 450 mcg/dL [facility] Iron Saturation 11(L) 20 - 50 % [facility] Blood specimen (specimen) 08/13/2018 2:42 PM EDT 08/13/2018 2:57 PM EDT Narrative Resulting Agency Comment Spec In Lab Susi Olivia MD CHEMISTRY ORDERA BLES Performing Organization Address [facility] Co de Phone Number [facility] [place] [address] documented in this encounter Visit Diagnoses Diagnosis Anemia, unspecified type documented in this encounter Care Teams Supervisor Microwave Relationship Specialty Start Date End Date Yoko Dhaliwal MD PCP - General Internal Medicine 06/25/18 11/21/24 documented as of this encounter
--- OUTSIDE RECORDS SUMMARY | 2024-12-13 01:23 | XMS_ITS | Encounter Summary ---
[place] [address] Care Team Providers Care Artificial Stone Setter Name Role Phone Yoko Dhaliwal MD Primary Care Provider Sona ble Encounter Details Date Type Department Care Team (Late st Contact Info) Description 08/27/2018 Telephone [place] [address] Sita Gan Social History Tobacco Use Types Packs/Day Years [...] encounter Miscellaneous Notes * Telephone Encounter - Sita Gan - 08/27/2018 12:[address] Yoko Dhaliwal calls to review direction on Iron, sent note to Dr. Olivia. documented in this encounter Plan of Treatment Upcoming Encounters Date Type Department Care Team (Late st Contact Info) Description 03/08/2025 10:00 AM EDT Hospital Encounter Non-Invasive [place] [address] Arrived documented as of this encounter Visit Diagnoses Not on filedocumented in this encounter Care Teams Artificial Stone Setter Relationship Specialty Start Date End Date Yoko Dhaliwal MD PCP - General Internal Medicine 06/25/18 11/21/24 documented as of this encounter
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
--- OUTSIDE RECORDS SUMMARY | 2024-12-13 01:23 | XMS_ITS | Encounter Summary ---
Author Organization [facility] Address [facility] [place] [address] Care Team Providers Care Residency Director Name Role Phone Yoko Dhaliwal MD Primary Care Provider Elias virk Encounter Details Date Type Department Care Team (Latest Contact Info) Description 07/18/2018 - 07/18/2018 1:34 PM EDT Hospital Encounter Radiology Library at [facility] [place] [address] Matt Colunga MD [facility] [place] [address] Discharge Disposition: Home Social History Tobacco Use [...] BEDTIME 0 06/02/2018 fluticasone (FLONASE) 50 mcg/actuation [place], Suspension USE 2 SPRAYS NASALLY DAILY 3 [...] AM EDT Hospital Encounter Non-[place] [address] Arrived documented as of this encounter Procedures Procedure Name Priority Date/Time Associated Diagnosis Comments FILM LIBRARY STORAGE ONLY CT ABDOMEN AND PELVIS Routine 07/18/2018 12:00 AM EDT documented in this encounter Results * Film Library- Storage Only CT Abdomen & Pelvis (07/18/2018 12:00 AM EDT) Narrative [facility] - 07/18/2018 11:32 PM EDT This exam is for storage only and is auto-finalizing. Matt Colunga MD IMG FILM LIBRARY OR DERABLES [place], [place] documented in this encounter Visit Diagnoses Not on filedocumented in this encounter Care Teams Residency Director Relationship Specialty Start Date End Date Yoko Dhaliwal MD PCP - General Internal Medicine 06/25/18 11/21/24 documented as of this encounter
--- OUTSIDE RECORDS SUMMARY | 2024-12-13 01:24 | XMS_ITS | Encounter Summary ---
Author Organization [facility] Address [address] [place] [address] Care Team Providers Care It Security Administrator Name Role Phone Yoko Esqueda MD Primary Care Provider Reason for Visit * Reason Onset Date Comments Pacemaker/Device Check 03/26/2019 Disconnec mckenna remote monitor status Encounter Details Date Type Department Care Team (Late st Contact Info) Description 03/26/2019 Telephone [facility] Cardiology - [address] [place] [address] Pacemaker, Provider 1 Pacemaker/Device Check (Disconnected remote monitor status) Social History Tobacco Use Types Packs/Day Years Used Date Smoking Tobacco: Former Cigarettes Q uit: 1980 Smokeless Tobacco: Never Alcohol Use Standard Drinks/Week Comments Yes 0 (1 standard drink = 0.6 oz pur e alcohol) AUDIT-C Answer Date Recorded Frequency of Alcohol Consumption Monthly or less 03/02/2019 Average Number of Drinks 1 or 2 019 Frequency of Binge Drinking Not on file 02/12 Sex and Gender Information Value Date Recorded Sex Assigned at Not on file Legal Sex Male 18:02 EST Gender Identity Not on file Sexual Orientation Not on file documented as of this encounter Miscellaneous Notes * Telephone Encounter - Nancy Beauchamp - 03/27/2019 1201 EDT Returning calls to Yoko Noel, spoke with Warren. They never received the remote monitor. Told him I would contact the company and get something ordered if it hasn't been taken care of yet. Likely needing land line remote monitor. No further questions at this time. * Telephone Encounter - QuynhNancy camp - 03/26/2019 1508 EDT Calling to follow up on remote monitor that has not received a message since PPM was implanted in February. Left number to call back. documented in this encounter Plan of Treatment Not on file documented as of this encounter Visit Diagnoses Not on filedocumented in this encounter Care Teams It Security Administrator Relationship Specialty Start Date End Date Yoko Esqueda MD [address] [place] [id number] PCP - General 03/04/19 documented as of this encounter
--- OUTSIDE RECORDS SUMMARY | 2024-12-13 01:24 | XMS_ITS | Encounter Summary ---
Author Organization [facility] Address [address] [place] [address] Care Team Providers Care Supervisor Gate Services Name Role Phone Unavailable Primary Care Provider Unavailabl e Encounter Details Date Type Department Care Team (Latest Contact Info) Description 12/08/2014 14:49 EST - 12/08/2014 23:59 EST Hospital Encounter [address] [address] Unknown, Provider, MD Discharge Disposition: Home or Self Care Social History Tobacco Use Types Packs/Day Years Used Date Smoking Tobacco: Never Assessed Sex and Gender Information Value Date Recorded Sex Assigned at Not on file Legal Sex Male 18:02 EST Gender Identity Not on file Sexual Orientation Not on file documented as of this encounter Discharge Disposition Disposition Code Departure Means Destination Home or Self [facility] documented in this encounter Plan of Treatment Not on file documented as of this encounter Visit Diagnoses Not on filedocumented in this encounter
--- OUTSIDE RECORDS SUMMARY | 2024-12-13 01:24 | XMS_ITS | Referral Summary ---
Author Organization [facility] Address [address] [place] [address] Care Team Providers Care Apple Checker Name Role Phone Yoko Esqueda MD [...] Noted Date Diagnosed Date Symptomatic bradycardia 03/02/2019 Social History Tobacco Use Types Packs/Day Years [...] 27.45 03/02/2019 1906 EDT Plan of Treatment Not on file Medical Devices Implanted Type Area Forensic Identification Specialist Device Identifier Shelf Expiration Date Model / Serial / Lot 3830 [employer]secure Mri Surescan - [id number] Implanted:2018 (Quantity not on file) Lead Medtronic 3830 SELECTSECURE MRI SURESCAN / [id number] / Description:Implant record l oaded by [employer] import. 3830 [employer]secure Mri Surescan - [id number] Implanted:2018 (Quantity not on file) Lead Medtronic 3830 [employer]URE MRI SURESCAN / [id number] / Description:Implant record l oaded by [employer] import. [id number] Edora 8 Kenzie - [id number] Implanted:2018 (Quantity not on file) Pacemaker Biotronik [id number] EDORA 8 KENZIE / [id number] / Description:Implant record l oaded by CHILANGO garcia. Advance Directives For more information, please contact: [phone] * Full Code (Latest Code Status on File) Date Activated Date Inactivated Comments 03/02/2019 19:30 03/05/2019 17:55 Question Answer Comments Reason for decision includes: Full code consistent with overall plan of care Who participated in the discussion? Other (pleas e specify) Specify other: Will confirm with patient Care Teams Apple Checker Relationship Specialty Start Date End Date Yoko Esqueda MD [address] [place] [phone] PCP - General 03/04/19
--- OUTSIDE RECORDS SUMMARY | 2024-12-13 01:24 | XMS_ITS | Encounter Summary ---
Author Organization [facility] Address [address] [place] [address] Care Team Providers Care Client Finance Analyst Name Role Phone Yoko Esqueda MD Primary Care Provider Encounter Details Date Type Department Care Team (Late st Contact Info) Description 11/18/2020 Lab Requisition [facility] Pathology & Laboratory Medicine - [facility] [address] [place], [place] [id number] Outr Resulting Lab, Provider Social History Tobacco Use Types Packs/Day Years [...] as of this encounter Plan of Treatment Not on file documented as of this encounter Procedures Procedure Name Priority Date/Time Associated Diagnosis Comments PSA TOTAL, DIAGNOSTIC Routine 11/18/2020 11:45 EST documented in this encounter Results * PSA TOTAL, DIAGNOSTIC (11/18/2020 11:45 EST) PSA 0.3 0.0 - 6.5 ng/mL 11/18/2020 21:55 EST [facility] Blood VENOUS BLOOD / Unknown 11/18/2020 11:45 EST 11/18/2020 20:57 EST Narrative [facility] - 11/18/2020 21:55 EST NOTE: Serum PSA concentration should not be interpreted as absolute evidence for the presence or absence of malignant disease. Assayed on Siemens Hoseannaaur XPT using chemiluminescent technology.??Values obtained by using different assay methods cannot be used interchangeably. us Provider Outr Resulting Lab CHEMISTRY & BLOOD GA S ORDERABLES Final Result [facility] [address] [place] [address] documented in this encounter Visit Diagnoses Not on filedocumented in this encounter Care Teams Client Finance Analyst Relationship Specialty Start Date End Date Yoko Esqueda MD [address] [place] [phone] PCP - General 03/04/19 documented as of this encounter
--- OUTSIDE RECORDS SUMMARY | 2024-12-13 01:24 | XMS_ITS | Encounter Summary ---
Author Organization [facility] Address [address] [place] [address] Care Team Providers Care Cash Register Mechanic Name Role Phone Yoko Esquead MD Primary Care Provider Reason for Visit * Reason Comments Arrhythmia AF Encounter Details Date Type Department Care Team (Late st Contact Info) Description 06/11/2019 Telephone [facility] Cardiology - [address] [place] [address] Pacemaker, Provider 1 Arrhythmia (AF) Social History Tobacco Use Types Packs/Day Years [...] * Telephone Encounter - Nancy Beauchamp - 06/11/2019 4670 EDT Called and spoke with Yoko about some remote monitoring showing AF episodes, which are not new forDavid but 1 episode lasting a little more than 13 hrs with a HR of 109bpm. Yoko states the pt has not had any symptoms and has actually been increasing his activity. Pt is scheduled for [facility] in June for device check, we are working to get his remote monitoring data transferred to them as well. No further questions at this time. documented in this encounter Plan of Treatment Not on file documented as of this encounter Visit Diagnoses Not on filedocumented in this encounter Care Teams Cash Register Mechanic Relationship Specialty Start Date End Date Yoko Esqueda MD [address] [place] [phone] PCP - General 03/04/19 documented as of this encounter
--- OUTSIDE RECORDS SUMMARY | 2024-12-13 01:24 | XMS_ITS | Encounter Summary ---
Author Organization [facility] Address [address] [place] [address] Care Team Providers Care Channel Marketing Manager Name Role Phone Unknown, Provider Primary Care Provider Yoko Miller MD Primary Care Provider Reason for Referral * Referral (Other (Specify in Question)) - New Request Specialty Diagnoses / Procedures Referred By Eric jackson Referred To Contact Diagnoses Complete heart block (HCC-CMS) Symptomatic bradycardia Yoko Page NP Phone: tel: fax: Marcus Bautista MD Phone: tel: fax: Referral ID Status Reason Start Date Expiration Date Visits Requested Visits Authorized [id number] New Request Specialty Services Required 03/04/2019 1 1 Question Answer Reason for Request: 03/04/19 s/p PPM Scheduling Comments (optional ? describe specific scheduling needs if applicable): 3 months at the [facility] cardiology clinic Expected Discharge Date (Inpatient Only): 03/05/2019 SITE [facility] cardiology clinic * Consult (Routine) - New Request Specialty Diagnoses / Procedures Referred By Eric jackson Referred To Contact Diagnoses Symptomatic bradycardia Complete heart block (HCC-CMS) Yoko Page NP Phone: tel: fax: Marcus Bautista MD Phone: tel: fax: Referral ID Status Reason Start Date Expiration Date Visits Requested Visits Authorized [id number] New Request Specialty Services Required 03/04/2019 1 1 Question Answer Reason for Request: 03/04/19 s/p ppm Scheduling Comments (optional ? describe specific scheduling needs if applicable): 4-[address] Bautista in [facility] cards clinic Expected Discharge Date (Inpatient Only): 03/05/2019 SITE Cardiology clinic in [facility] * Follow Up (Other (Specify in Question)) - New Request Specialty Diagnoses / Procedures Referred By Eric jackson Referred To Contact Diagnoses Symptomatic bradycardia Complete heart block (HCC-CMS) Yoko Page NP Phone: tel: fax: Yoko Esqueda MD [address] [place] [id number] Phone: tel: fax: Referral ID Status Reason Start Date Expiration Date Visits Requested Visits Authorized [id number] New Request Continuity of Care 03/04/2019 1 1 Question Answer Reason for Request: 03/04/19 PPM implant Scheduling Comments (optional ? describe specific scheduling needs if applicable): 2 week incision site check Expected Discharge Date (Inpatient Only): 03/05/2019 Encounter Details Date Type Department Care Team (Latest Contact Info) Description 03/02/2019 19:29 EDT - 03/05/2019 15:45 EDT Hospital Encounter [facility] Cardiac/Telemetry Unit [address] [place] [address] [id number] Dimitrios Rand MD [address] [place] [address] [place] [id number] Bradycardia (Primary Dx); Symptomatic bradycardia; Complete heart block (HCC-CMS) Discharge Disposition: Home or Self Care Social [...] Body Mass Index 27.45 03/02/2019 1906 EDT documented in this encounter Discharge Diagnoses Diagnosis I44.1 Atrioventricular block, second degree-I44.1[ICD-10-CM] R00.1 Bradycardia, unspecified-R00.1[ICD-10-CM] I48.92 Unspecified atrial flutter-I48.92[ICD-10-CM] I48.91 Unspecified atrial fibrillation-I48.91[ICD-10-CM] Z89.512 Acquired absence of left leg below knee-Z89.512[ICD-10-CM] I25.10 Atherosclerotic heart disease of [place] coronary artery without angina pectoris-I25.10[ICD-10-CM] I10 Essential (primary) hypertension-I10[ICD-10-CM] E78.5 Hyperlipidemia, unspecified-E78.5[ICD-10-CM] D50.9 Iron deficiency anemia, unspecified-D50.9[ICD-10-CM] G89.4 Chronic pain syndrome-G89.4[ICD-10-CM] J45.909 Unspecified asthma, uncomplicated-J45.909[ICD-10-CM] K21.9 Gastro-esophageal reflux disease without esophagitis-K21.9[ICD-10-CM] K59.00 Constipation, unspecified-K59.00[ICD-10-CM] F32.9 Major depressive disorder, single episode, unspecified-F32.9[ICD-10-CM] Z95.5 Presence of coronary angioplasty implant and graft-Z95.5[ICD-10-CM] Z79.01 terminal gauger (current) use of anticoagulants-Z79.01[ICD-10-CM] Z79.02 terminal gauger (current) use of antithrombotics/antiplatelets-Z79.02[ICD-10-CM] Z87.891 Personal history of nicotine dependence-Z87.891[ICD-10-CM] documented in this encounter Discharge Summaries * Dimitrios Rand MD - 03/05/2019 0544 EDT [facility] Division of Cardiovascular Medicine Department of Medicine DISCHARGE SUMMARY Primary Care Provider: Yoko Dhaliwal Attending Physician: Dimitrios Rand MD Admit Date: 03/02/2019 Discharge Date: 03/05/19 Disposition: Home or self care PROBLEMS Admitting Diagnosis: Bradycardia Final Hospital Diagnosis: Symptomatic Bradycardia Additional Problems Managed in the Hospital Active Hospital Problems Diagnosis Date Noted ??? *Symptomatic bradycardia 03/02/2019 Resolved Hospital Problems No resolved problems to display. HOSPITAL COURSE Bindu Perla is a 68 y.o. male with a previous medical history significant for paroxysmal atrialflutter, ischemic cardiomyopathy, exertional angina s/p PCI w/ ABELARDO to LAD (12/2018), hypertension, hyperlipidemia, iron deficiency anemia who was transferred from [facility] with symptomatic bradycardia for PPM placement. Patient initially presenting there with worsening fatigue, dyspnea on exertion and chest tightness. Patient underwent PPM with no complications. Echo showed intact ejection fraction with no regional wall motion abnormalities and mild LVH Patient was hemodynamically stable during the reminder of hospitalization. Patient was discharged with instructions to continue home medication region. Patient advised to follow up with PCP in [address] Bautista in [facility] in 4-5weeks CARDIAC PROCEDURE EP Device Procedure Note Dual Chamber Pacemaker for high grade AV block (sinus with frequent 2:1 AV block during procedure) ?? EP attending: Nicholas Santillan MD PhD Fellow: Manuel Fontaine MD Ventricular lead to basal right ventricular septum (Left proximal bundle pacing) Atrial lead to high RA septum (Juan's bundle) ?? No apparent complications IMAGING Echocardiogram 1. Left ventricle: The cavity size was normal. Wall thickness was ? increased in a pattern of mild LVH. Systolic function was normal. The ? estimated ejection fraction was 60-65%. Wall motion was normal; there ? were no regional wall motion abnormalities. 2. Right ventricle: The cavity size was normal. Wall thickness was ? normal. Systolic function was normal. FOLLOW UP Follow-up appointments and procedures Amb Consult/Follow Up Cardiac Electrophysiology Reason for Request: 03/04/19 s/p ppm Scheduling Time Frame: 4-[address] Bautista in [facility] Expected Discharge Date (Inpatient Only): 03/05/2019 Practice Site (External Referral Only): Cardiology clinic in [facility] Authorizing Provider: Yoko Page ANP Amb Consult/Follow Up Pacer/ICD Check Reason for Request: 03/04/19 s/p PPM Scheduling Time Frame: 3 months at the [facility] Expected Discharge Date (Inpatient Only): 03/05/2019 Practice Site (External Referral Only): [facility] cardiology [facility] Authorizing Provider: Yoko Page ANP Amb Consult/Follow Up Primary Care Physician Reason for Request: 03/04/19 PPM implant Scheduling Time Frame: 2 week incision site check Expected Discharge Date (Inpatient Only): 03/05/2019 Authorizing Provider: Yoko Page ANP Additional Information: Please follow up with your primary care physician, Dr Yoko Dhaliwal, on March 11, 2019 at 1:20pm. If you have any questions please call [phone]. We have contacted [facility] Cardiology. A nurse will be contacting youto arrange a 5-6 week follow up with the gambling box person and a 3 month pacemaker check. If you have questions please call [phone]. Appointment in [address] Dhaliwal for an incision site check and post hospital follow up has been requested Cardilogy follow up in 5-[address] Bautista at the cardiology clinic in [facility] has been requested and you should be contacted with appointment Cardiology pacemaker check in 3 months at the cardiology clinic in [facility] has been requested and you should be contacted with appointment Christopher Haines MD 03/05/2019 5:44 Attestation statement: Supervising Physician. I saw and examined Mr. Perla on March 05, 2019. I agree with the discharge summary as outlined above. documented in this encounter Discharge Instructions * Appointments* Ofelia Thompson - 03/04/2019 17:33 EDT Please follow up with your primary care physician, Dr Yoko Dhaliwal, on March 11, 2019 at 1:20pm. If you have any questions please call [phone]. We have contacted [facility] Cardiology. A nurse will be contacting youto arrange a 5-6 week follow up with the gambling box person and a 3 month pacemaker check. If you have questions please call [phone]. Appointment in [address] Dhaliwal for an incision site check and post hospital follow up has been requested Cardilogy follow up in 5-[address] Bauitsta at the cardiology clinic in [facility] has been requested and you should be contacted with appointment Cardiology pacemaker check in 3 months at the cardiology clinic in [facility] has been requested and you should be contacted with appointment * Discharge Instr - Other Orders* Camilo Schmitt, SHERI Lwa - 03/04/2019 17:30 EDT DISCHARGE INSTRUCTIONS FOR PATIENTS WITH PACEMAKERS 1. Carry your Pacemaker identification card with you at all times. A permanent card will be sent toyour home in approximately 6-8 weeks. 2. Appointments: 3. Wound Care: A. If Steri Strips were applied: Keep the wound dry for 4 days then you may shower. Leave the Steri strips in place. They will dry out and fall off on their own in 7-10 days. Do not soak or scrub the wound area. To dry, gently pat with a soft towel or cloth. Avoid Topical Medications. Do not apply liquid or ointment medications, lotions, creams, petroleum jelly, mineral oils or any other product to your wound Do not rub, scratch, or pick at the wound. Doing so may prevent the wound from closing appropriately and cause scarring. Check the wound appearance. Some swelling, redness, and pain are common with all wounds and normally will go away as the wound heals. Contact your doctor immediately if swelling, redness or pain increases; if the wound feels warm to the touch; or if the wound edges reopen or separate. B. If Skin adhesive was used: Keep the wound dry. You may shower the next day. Do not soak or scrub the wound area. To dry, gently pat with a soft towel or cloth. If bandaged, keep the bandage dry or replace if it should become wet. Avoid Topical Medications. Do not apply liquid or ointment medications, lotions, creams, petroleum jelly, mineral oils or any other product to your wound while adhesive film is in place. Do not rub, scratch, or pick at the wound. Doing so may prevent the wound from closing appropriately and cause scarring. Protect the wound from prolonged sunlight exposure. Do not use tanning lamps while the film is in place. Check the wound appearance. Some swelling, redness, and pain are common with all wounds and normally will go away as the wound heals. Contact your doctor immediately if swelling, redness or pain increases; if the wound feels warm to the touch; or if the wound edges reopen or separate. The adhesive will naturally shed itself between 5 and 10 days after the procedure. By this time, your wound should be sufficiently healed. Call your physician or nurse if: ??? You develop drainage, increased redness or swelling at the incision site. ??? You develop marked tenderness or bruising over incision site and it does not resolve in 2 days. ??? You develop a fever. Your wound should be checked in approximately 2 weeks by your primary physician. Your first device follow up will be in 3 months, and then every 6 months after that. 4. Activity: ??? You can resume your normal activities as tolerated, unless you have been instructed otherwise. ??? No vigorous activity with the arm on the same side as the device for 1 month. KEEP YOUR ARM BELOW SHOULDER LEVEL FOR 4 WEEKS AFTER IMPLANT. ??? Avoid rough contact/impact with the pacemaker. ??? Lift no more than 10 pounds the first month with the affected arm. Additional Instructions: ??? Avoid strong magnetic salgado as they may interfere with your pacemaker. ??? Example: MRI (Magnetic Resonance Imaging) ??? Note: Some pacemakers are now safe for MRI scanning. ??? When you travel by air please inform the book agent and airport security of your pacemaker. ??? Know your medications, keep a list with you and take them as prescribed. ??? Please tell other physicians and dentist that you have a pacemaker. We may need to make some temporary changes on your pacemaker if you are having surgery. ??? If you use a cellular phone, it should be held a minimum of 6 inches from your pacemaker, and it is recommended to hold the cellular phone on the side opposite your pacemaker. ??? Microwave oven has no ill affects on your pacemaker. Appointments: Your first pacemaker check will be scheduled in three months after implant at your closest chosen clinic location. You will be reminded of this date by mail. ??? Subsequent pacemaker clinics will be done either once a year or twice a year depending on your device and those appointments will be scheduled at your first appointment. ??? Our Outpatient Cardiology [facility] clinic is located at [address] [place] [address] in [place]. ??? Clinics are also held in [facility], [facility], [facility]/[place], [facility]/ [place], [facility]/ [facility], [facility]/ [facility], [facility]/[place], [facility]/ [facility]. We will make arrangementsfor follow up in a clinic closest to where you live. Please Note: If we have not contacted you or you have missed your scheduled appointment, you must contact us. If you have any nursing questions please don???t hesitate to call the Cardiac Arrhythmia Service [facility] at. [phone] or [phone] or1 extension [phone]. For any scheduling of appointments please call [phone] or extension documented in this encounter Medications at Time of Discharge acetaminophen-cod eine (TYLENOL #4) 300-60 mg per tablet Take 1 tablet by mouth every 8 hours as needed. albuterol 90 mcg/actuation inhaler Inhale 2 puffs as directed every 6 hours as needed for Wheezing. amLODIPine (NORVASC) 5 mg tablet Take 10 mg by mouth daily. apixaban (ELIQUIS) 2.5 mg tablet Take 5 mg by mouth 2 times daily. clopidogrel (PLAVIX) 75 mg tablet Take 75 mg by mouth daily. esomeprazole (NEXIUM) 20 mg capsule Take 40 mg by mouth every morning before breakfast. fluticasone propionate (FLONASE) 50 mcg/actuation nasal spray Instill 100 mcg into both nostrils daily. lisinopril (PRINIVIL, ZESTRIL) 10 mg tablet Take 20 mg by mouth daily. metoprolol XL (TOPROL-XL) 25 mg tablet Take 25 mg by mouth daily. nitroGLYCERIN (NITROSTAT) 0.[address] 0.4 mg under the tongue every 5 minutes as needed for Chest Pain. polyethylene glycol 3350 (MIRALAX) 17 gram packet Take 17 g by mouth daily. traMADol (ULTRAM) 50 mg tablet Take 50 mg by mouth every 6 hours as needed for Pain. documented as of this encounter Discharge Disposition Disposition Code Departure Means Destination Home or Self Care documented in this encounter Progress Notes * Burr, Zoey - 03/05/2019 1057 EDT CM Discharge Note DISCHARGE DATE/TIME: 03/05/2019 DESTINATION: Home with SO and daughter ACCEPTING MD AND NUMBER: N/a RN REPORT/UNIT: N/a OPEN HEARTH FURNACE OPERATOR HELPER/CHARGE/MD NOTIFIED (Y/N): YES Forms: n/a IM SIGNED (Y/NA): YES Transportation: Pt's SO is driving Pt home Home Health: n/a DME: N/a Prescriptions: N/a Patient and/or family who participated in discharge plan: CM met with Pt at bedside. Pt is in agreement with his d/c plan -has support from SO as well as his daughter who lives very close by. Pt expects his family to arrive before 1400. Zoey Burr RN BSN [employer] Conveyor Operator II Pager #[phone] *Covering for Ofelia Pitts RN * Aleida Samuels PT - 03/05/2019 1042 EDT Rehabilitation Therapies Acute The[facility] Therapy[facility] Note Date of Service: 03/05/2019 PT referral received. Per RN pt has hospital DC order already placed and pt is independent with functional mobility. Therapist spoke with pt and pt has no concerns about DC and does not want any homehealth or outpatient PT follow-up. Therapist sent text page to Dr. Christopher Haines in order to determine if PT order can be discontinued. Aleida Samuels PT 03/05/2019 10:42 * Genia Schulz MBBS - 03/04/2019 2053 EDT Cardiology Post Procedure Note s/p pacemaker placement S: Pt resting comfortably. Denies chest pain, palpitations, lightheadedness, dizziness, dyspnea, numbness or weakness. Denies pain, bleeding or discharge from the PPM site. Ambulating without complication. O:Blood pressure (!) 162/94, pulse 87, temperature 37.4 ??C (99.3 ??F), temperature source Tympanic, resp. rate 18, height 177.8 cm (70), weight 87.7 kg (193 lb 6.4 oz), SpO2 99 %. Gen: NAD, resting comfortably Chest: CTAB, no w/r/r CV: RRR, S1/S2 normal, no m/r/g Extr: left chest wall bandaged at pacer site no bleeding or discharge, no hematoma or mass Pulse: 2+ Neuro: A+Ox3, 5/5 strength, grossly normal sensation A/P: 68 y.o.male s/p pacemaker placement. -- stable as above, cont to monitor -- cont plan as per morning note Genia Schulz MD PhD Internal Medicine Resident, PGY-2 Pager #[phone] * Rachel Mckenzie - 03/04/2019 0046 EDT Initial Case Management/Social Work Assessment and Discharge Plan/Readmission Risk Assessment REASON FOR ADMISSION: Symptomatic bradycardia Patient understands reason for admission: Yes PATIENT CONTACT INFO VERIFIED: Yes PATIENT ADDRESS VERIFIED: Yes LIVING ARRANGEMENTS AND ACCESSIBILITY ISSUES: Living Arrangements: Spouse / significant other, Private residence Levels: 1 Stairs to enter: 2 Handicap access: None Bathroom located on bedroom level?: Yes What in home social supports are available to the patient? Spouse / significant other, Children Is 24/7 care available? NA ADVANCED DIRECTIVES, POA &/or COLST IN PLACE: Healthcare Directive: Yes, patient has advance directive for healthcare treatment Type of Healthcare Directive: Durable power of jig inspector for health care Copy in Chart: No, copy requested from family DIRECTIVES FOR FINANCES: Directive For Finances: No TRANSPORTATION: Transportation: Self CULTURAL, PROTESTANT and/or LANGUAGE factors affecting health care/discharge planning: Spiritual/Cultural Requests: None Any factors affecting health care/discharge planning?: No Insurance in Place: Yes Medical Insurance: Yes Type of insurance: Medicare Medicare type: A, B, D Referred to patient financial services: No DISCHARGE RISK ASSESSMENT: Polypharmacy, > 7 medications Total # selected above: Score of 1 - 2: This patient is at LOW RISK for re-hospitalization Tentative plan to address the risk of re-hospitalization for those at HIGH MODERATE RISK: Other:patient is low risk for rehospitalization RAPT TOOL: Age: 66-73 Gender: Male Ambulation distance: Housebound most of the time Gait device: Crutch/Walker Community Services: Home health, MOW, SASH-none of one time a week Will you live with someone who will care for you?: Yes RAPT Tool Score: 7 Patient expects to be discharged to: Home with family support SBIRT: SASQ (Single Alcohol Screening Question) How many times in the past year have you had 5 or more drinks in a single day?: Never How many times in the past year have you used an illegal drug or used a prescription medication fornon-medical reasons?: Never Intervention in place/initiated?: No, not indicated FUNCTIONAL STATUS: Activities patient requires assistance: None Assistive Device: Front wheel walker COMMUNITY RESOURCES/SUPPORTS: Primary Care Provider: Yoko Dhaliwal PCP Verified: Yes(Dr Yoko Dhaliwal, [place]) Specialists: Cardiology(Dr. [place]) Type of Home Health Services: None DME Provider: not at this time Pharmacy: [facility] in [place] Home Health: Not at this time Other: POST HOSPITAL TRANSITION PLAN: Home with family support. Either spouse Lisa or daughter Ofelia or both will drive patient home at discharge. Rachel Mckenzie 03/04/2019 16:36 * Neto Conner, PT - 03/04/2019 4302 EDT [facility] Therapy[facility] Note Date of Service: 03/04/2019 A physical therapy consult order was received and the medical record was reviewed. The patient was unavailable for an examination due to being off the floor for test/procedure. He is now recently returned to the cardiac floor but with 3 hours bedrest. PT will follow up 03/05/2019, if medically indicated. NETO CONNER PT 03/04/2019 14:52 * Dimitrios Rand MD - 03/04/2019 2823 EDT [facility] Division of Cardiovascular Medicine Department of Medicine Progress Note Service Date: 03/04/2019 Admit Date: 03/02/2019 19:29 Reason for Admission Symptomatic bradycardia 24 Hour Events -Bradycardiac to 30s Subjective/Objective SUBJECTIVE -complains of fatigue and chest tightness -denies fever, chills, nausea, vomiting, abdominal pain, chest pain or shortness of breath REVIEW OF SYSTEMS Pertinent positives and negatives as noted in the Subjective portion. OBJECTIVE BP Min: 141/59 Max: 170/53 Resp Min: 16 Max: 18 Temp Min: 36.4 ??C (97.5 ??F) Max: 37.6 ??C (99.7 ??F) SpO2 Min: 99 % Max: 100 % PHYSICAL EXAM GENERAL: elderly male in no acute distress NEURO: Alert and oriented to person, place and time. HEENT: Normocephalic, atraumatic. NECK: Neck supple. no JVD CARDIAC: bradycardiac. No murmurs, rubs or gallops LUNGS: clear to ausculation bilaterally ABDOMEN: Positive bowel sounds. Soft, non-distended, non-tender. No guarding or rebound. No masses. EXTREMITIES: Left BKA with prosthetic limb, scar across right knee, jeter on right thumb and fingers with diminished sensation, no peripheral edema, normal perfusion. SKIN: normal color, texture and turgor with no lesions or eruptions. LABS Recent Labs 03/02/19201703/03/19 0622 03/04/19 0709 NA 143 141 140 K 4.2 4.3 4.1 CL 111* 111* 110 CO2 22 22 23 BUN 13 17 16 CREATININE 0.74 0.78 0.80 CARDIAC IMAGING Echocardiogram 1. Left ventricle: The cavity size was normal. Wall thickness was ? increased in a pattern of mild LVH. Systolic function was normal. The ? estimated ejection fraction was 60-65%. Wall motion was normal; there ? were no regional wall motion abnormalities. 2. Right ventricle: The cavity size was normal. Wall thickness was ? normal. Systolic function was normal. Assessment/Plan ASSESSMENT 68 y.o. male with a previous medical history significant for paroxysmal atrial flutter, ischemic cardiomyopathy, exertional angina s/p PCI w/ ABELARDO to LAD (12/2018), hypertension, hyperlipidemia, iron deficiency anemia due to recent GI bleed, resolved SBO s/p small bowel resection, chronic pain syndrome, asthma, GERD, and depression transferred from [facility] with symptomatic bradycardia. Active Problems: 1. Symptomatic Bradycardia 2. Atrial fibrillation PLAN #Symptomatic bradycardia w/ atrial fibrillation: ??Dx??of aflutter 04/2018, bradycardia observed s/pDES in December on metoprolol, persistent despite decreasing metoprolol. ??Symptoms of fatigue, chest tightness, FINLEY. ??Troponin negative at [facility]. - Echocardiogram performed - Hold TUBE DISPATCHER metoprolol 25 mg XR. - Continue TUBE DISPATCHER apixaban 5 mg BID. - Pacemaker placement likely today - Maintain K > 4.0, Mg > 2.0. ?? #CAD s/p ABELARDO w/ HTN and HLD: ??Stent placed in December, additional 40% and 25% lesions. ??On plavix, aspirin recently changed to eliquis, normal EF in December with regional wall motion abnormalities. - Continue plavix 75 mg daily. - Continue lisinopril 20 mg daily. - Continue amlodipine 10 mg daily. ?? Normocytic anemia w/ prior GI bleed and iron deficiency - Monitor daily hemagram - Transfuse Hb < 7.0. ?? Chronic pain syndrome - Holding tylenol-codeine 300-60 (not on formulary). - Starting on oxycodone 5 mg at qhs prn. - Additional tylenol 1000 mg q8h prn. ?? Chronic medical problems: GERD, asthma - Continue TUBE DISPATCHER albuterol and flonase - Starting on pantoprazole 40 mg daily. - Additional miralax for constipation. MISCELLANEOUS CONSULTS: none CODE: full DVT PROPHYLAXIS: on apixiban DIET: restart after PPM DISPOSITION: likely home tomorrow Christopher Haines MD 03/04/19 Attestation statement: Supervising Physician. I saw and examined Mr. Perla on morning rounds of the cardiac electrophysiology service on March 04, 2019. I agree with the history,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 03/05/2019 12:20 PM Clinical History/Comments: R00.1 Bradycardia, unspecified sp dual chamber ppm COMPARISON: Radiograph 03/04/2019. TECHNIQUE: Two views of the semiupright chest were performed using dual energy technique with bone and soft tissue reconstruction. FINDINGS: Soft tissues: A left-sided cardiac pacer pack overlies the chest wall obscuring part of the left upper lung. Radiopaque clips are seen within the right lower neck. Multiple support lines overly the patient. Bones: No acute abnormality. Cardiac and mediastinal contours:Right atrial and right ventricular pacer leads appear in expected position, unchanged from prior imaging. Otherwise, within normal limits. Lungs: The lungs are clear and the pulmonary vasculature is normal. There is hazy opacity in the upper and mid lung on the left compared to right likely related to a chest wall asymmetry Pleura/diaphragms: No pneumothorax or pleural effusion is seen. IMPRESSION: No acute abnormality. I have personally reviewed the images and the above interpretation and agree with the findings. us Manuel Fontaine MD IMG DIAGNOSTIC IMAGING JUAN DEL CID Final Result * ECG REPORT - SCANNED (03/05/2019 11:00 EDT) 03/05/2019 11:0 0 EDT us Scan 2 Hand Washer PROCEDURE/MINOR SURGICAL OR DERABLES Final Result * CREATININE (03/05/2019 6:56 EDT) Creatinine 0.87 0.66 - 1.25 mg/dl 03/05/2019 8:19 EDT [facility] GFR, Calculated 87 >60 ml/min/1.7 3m2 03/05/2019 8:19 EDT [facility] Comment: eGFR calculated using CKD-EPI equation for non Americans. Multiply eGFR by 1.16 for Americans. Blood specimen (specimen) BLOOD SPECIMEN / Unknown 03/05/2019 6:56 EDT 03/05/2019 7:35 EDT us Genia TAYLOR CHEMISTRY & BLOOD GAS O RDERABLES Final Result Performing Organization Address City/[facility]/ZIP Co de Phone Number [facility] [address] [place] [address] * BUN (03/05/2019 6:56 EDT) BUN 15 10 - 26 mg/dl 03/05/2019 8:19 EDT [facility] Blood specimen (specimen) BLOOD SPECIMEN / Unknown 03/05/2019 6:56 EDT 03/05/2019 7:35 EDT Genia CAI CHEMISTRY & BLOOD GAS O RDERABLES Final Result Performing Organization Address City/[facility]/ZIP Co de Phone Number [facility] [address] [place] [address] * ELECTROLYTES (03/05/2019 6:56 EDT) Sodium 138 136 - 145 mEq/L 03/05/2019 8:19 EDT [facility] Potassium 4.0 3.5 - 5.0 mEq/L 03/05/2019 8:19 [facility] Chloride 105 96 - 110 mEq/L 03/05/2019 8:19 [facility] CO2 27 22 - 32 mEq/L 03/05/2019 8:19 [facility] Blood specimen (specimen) BLOOD SPECIMEN / Unknown 03/05/2019 6:56 EDT 03/05/2019 7:35 EDT us Genia TAYLOR CHEMISTRY & BLOOD GAS O RDERABLES Final Result [facility] [address] [place] [address] * (ABNORMAL) COMPLETE BLOOD COUNT (03/05/2019 6:56 EDT) WBC 7.08 4.0 - 10.4 K/cmm 03/05/2019 7:49 [facility] RBC 3.94(L) 4.36 - 5.78 M/cmm 03/05/2019 7:49 [facility] Hemoglobin 11.5(L) 13.8 - 17.3 gm/dl 03/05/2019 7:49 [facility] HCT 34.4(L) 39.5 - 50.2 % 03/05/2019 7:49 [facility] MCV 87 81 - 95 fl 03/05/2019 7:49 [facility] MCH 29.2 27.6 - 33.0 pg 03/05/2019 7:49 [facility] MCHC 33.4 32.8 - 36.4 gm/dl 03/05/2019 7:49 [facility] RDW-CV 14.6(H) <14.2 % 03/05/2019 7:49 [facility] RDW-SD 47.3(H) <46.0 fl 03/05/2019 7:49 [facility] PLT 201 141 - 377 K/cmm 03/05/2019 7:49 [facility] MPV 13.0(H) 9.5 - 12.7 fl 03/05/2019 7:49 EDT [facility] Blood specimen (specimen) BLOOD SPECIMEN / Unknown 03/05/2019 6:56 EDT 03/05/2019 7:35 EDT us Genia Schulz MBBS HEMATOLOGY & PF4 ORDERA BLES Final Result [facility] [address] [place] [address] * EKG 12-LEAD (03/04/2019 14:54 EDT) 03/04/2019 14:5 4 EDT Narrative [facility] - 03/05/2019 21:33 EDT ? [facility] ? Test Date: ?2019-03-04 Pat Name: ? BINDU PERLA ?Department: ?? [facility] ? Room: ? ME507 Gender: ? Male ? Bobj Developer: ?? [id number] : ?1950 ? Requested By: MICKI Guillory Order Number: [id number] ? Anastasia GARZA: ?? REAGAN QUINTERO MD ? Measurements Intervals ?[place] ? Rate: ? 77 ? P: ?60 GA: ? 216 ?QRS: ?-25 QRSD: ? 118 ?T: ?161 QT: ? 418 ? QTc: ?474 ? Interpretive Statements ELECTRONIC VENTRICULAR PACEMAKER WITH VENTRICULAR PREMATURE COMPLEXES AND ATRIAL SENSING Compared to ECG 03/03/2019 14:12:15 Atrial fibrillation no longer present I reviewed the tracing and have either agreed or edited the findings in this report. Electronically Signed On 03-05-2019 21:33:48 EDT by REAGAN QUINTERO MD. Procedure Note Reagan Quintero MD - 03/05/2019 [facility] Test Date: 2019-03-04 Pat Name: BINDU JOHNSONIRES Department: [place] [address] [place] [facility] Gender: Male Bobj Developer: [id number] : 1950 Requested By: MICKI Guillory Order Number: [id number] Reading MD: REAGAN QUINTERO MD Measurements Intervals [place] Rate: 77 P: 60 GA: 216 QRS: -25 QRSD: 118 T: 161 QT: 418 QTc: 474 Interpretive Statements ELECTRONIC VENTRICULAR PACEMAKER WITH VENTRICULAR PREMATURE COMPLEXES AND ATRIAL SENSING Compared to ECG 03/03/2019 14:12:15 Atrial fibrillation no longer present I reviewed the tracing and have either agreed or edited the findings inthis report. Electronically Signed On 03-05-2019 21:33:48 EDT by REAGAN SLADE. Manuel Fontaine MD CARDIAC ECG ORDERABLES Ale johnson Result [facility] EKG * PORTABLE CHEST 1 VIEW (03/04/2019 14:52 EDT) Anatomical Region Laterality Modality Other 03/04/2019 14:5 2 EDT 03/04/2019 15:38 EDT Narrative 03/04/2019 15:38 EDT PORTABLE CHEST 1 VIEW ??03/04/2019 2:52 PM Clinical History/Comments: sp dual chamber ppm Comparison: None TECHNIQUE: Semiupright AP chest Findings: There is no evidence of pneumothorax following placement of a dual-chamber pacemaker through the left subclavian vein. Leads overlie the right atrium and ventricle. The cardiac silhouette and pulmonary vascularity are normal, and the lungs are clear. Surgical clips are present in the lower right neck. Procedure Note Petr Luis MD, MD - 03/04/2019 PORTABLE CHEST 1 VIEW 03/04/2019 2:52 PM Clinical History/Comments: sp dual chamber ppm Comparison: None TECHNIQUE: Semiupright AP chest Findings: There is no evidence of pneumothorax following placement of a dual-chamber pacemaker through the left subclavian vein. Leads overlie the right atrium and ventricle. The cardiac silhouette and pulmonary vascularity are normal, and the lungs are clear. Surgical clips are present in the lower right neck. Manuel Fontaine MD IMG DIAGNOSTIC IMAGING JUAN DEL CID Final Result * PERMANENT PACEMAKER PROCEDURE (03/04/2019 12:46 EDT) Anatomical Region Laterality Modality Other 03/04/2019 12:4 6 EDT Narrative 03/06/2019 19:40 EDT *Cardiology* [address] [place] [address] Device Implantation Patient: Bindu Perla ?Study Date: ? 03/04/2019 ?Accession #: ?[id number] : ? 1950 Referring: Unknown Doctor Attending: Nicholas Santillan MD, PhD ? Tyrell Fellow: ?Manuel Fontaine MD Assisting: Copies: ATTESTATION: Dr. Nicholas Santillan was present and supervising for the entire procedure, I Dr. Manuel Fontaine was the initial author of this report. I, Dr. Nicholas Santillan have reviewed and agree with the findings of this report. SUMMARY OF PROCEDURE: - There were no complications. - Successful Dual chamber pacemaker implant. HISTORY AND INDICATIONS: ??Non-valvular atrial fibrillation. ??2:1 AV block. PROCEDURE: - Implant of a dual chamber pacemaker ANESTHESIA: Conscious sedation and local anesthesia. PROCEDURE: The risks, benefits, and alternatives to the procedure and sedation were explained and informed consent was obtained. The patient name, date of , surgical site, and procedure were verified prior to the procedure. The patient was brought to the OR in the fasting state. The chest was prepped and draped in the usual sterile manner. ??Lidocaine 2% and Bupivacaine 0.5% was administered to the left deltopectoral groove. ??Left axillary vein access. With the patient in Trendelenburg position and under fluoroscopic guidance the vessel was entered on 2 occasion(s) allowing for placement of 2 soft-tipped J-wire(s) to the level of the inferior vena cava. The attending physician was present for the entire procedure. An incision was made medial and perpendicular to the left deltopectoral groovesubcutaneous. Using blunt dissection and electrocautery to achieve hemostasis, a device pocket was constructed. Lead implantation. The wire was tunneled into the incision area. Using a 7Fr safety sheath, a lead was advanced to the right ventricle under fluoroscopic guidance and actively fixed to the basal right ventricular septum under electrographic guidance to find a W pattern on V1 with pacing from the lead then lead advanced further until electrogram narrowed. Using a 7Fr safety sheath, a lead was then advanced to right atrium under fluoroscopic guidance and actively fixed to the high right atrial septum. The lead(s) were tested before and after suturing the lead sleeve(s) to the pre-pectoralis fascia. Device detail in table below. Wound closure. The pocket was copiously irrigated with bacitracin solution. The leads were attached to the device and the system was placed in the pocket. The wound was closed in three layers. The skin was approximated with steri-strips. The deepest layer was interrupted vertical mattress using 2-0 Monocryl. The mid layer was interrupted horizontal mattress using 3-0 Monocryl. The superficial layer was continuous horizontal mattress using 4-0 Monocryl. Tincture of Benzoin was applied and the skin was approximated with steri-strips. A pressure dressing was applied. IMPLANTED HARDWARE: Implanted device: Biotronik - Gina AponteNABILA - Serial number: [id number]. LEAD PARAMETERS + + + + Lead # ? 1 ? 2 ? + + + + Chamber ? RA ? RV ? + + + + Date implanted ?? 03/04/2019 ? 03/04/2019 ? + + + + Model information Medtronic 3830 Medtronic 3830 ? + + + + Serial number ? [id number] ? [id number] ? + + + + Location ? High RA septum High RV septum ? + + + + Capture ? 1V@ 0.4ms ? 0.5V@ 1ms ? + + + + Impedance ? 741Ohms ? 409Ohms ? + + + + Sensing ? 1.8mV ? No intrinsic value + + + + Status ? Active ? Active ? + + + + PACING SETTINGS + +------+ Mode ? DDDR ?? + +------+ Lower rate ? 60bpm + +------+ Upper rate ? 130bpm + +------+ Mode switch ? On ? + +------+ Mode switch rate 160bpm + +------+ Paced AV delay ?? 180ms + +------+ Sensed AV delay 135ms + +------+ CHAMBER SETTINGS + + + + ? RA ? RV ? + + + + Pacing polarity Uni/bipolar Uni/bipolar + + + + Amplitude ? 2.5V ? 3.6V ? + + + + Pulse width ? 0.4ms ? 0.4ms ? + + + + Sensing polarity Bipolar ? Bipolar ? + + + + Sensitivity ? Auto ? Auto ? + + + + STUDY COMPLETION Administered medications: ?? Cefazolin (Ancef, Kefzol) , prior to the procedure for infection prophylaxis. - Fluoroscopy time: 3.2min. - Isovue Contrast: 10ml. - Patient in-room time: 11:40 AM. - Patient out-of-room time: 02:15 PM. - Intake: 750ml - Estimated blood loss: 30ml. Clinical Trial: ??The patient is not enrolled in a clinical trial._ PLAN: ??See post procedure orders. Bed rest for 3hours. At the completion of the procedure, findings, results, any complications, and treatment plan were communicated to the patient and reinforced after recovery from anesthesia. With the patient's consent, the attending physician communicated findings, results, any complications, and treatment plan to family members and patient support persons who were present at the conclusion of the procedure. POST PROCEDURAL DISPOSITION: Patient was admitted as an inpatient prior to this procedure. Electronically signed by Nicholas Santillan MD, PhD 03/06/2019 19:40 Procedure Note Nicholas Santillan MD, MD - 03/06/2019 *Cardiology* [address] [place] [address] Device Implantation Patient: Bindu Perla Study Date: 03/04/2019 : 1950 Referring: Unknown Doctor Attending: Nicholas Santillan MD, PhD Tyrell Fellow: Manuel Fontaine MD Assisting: Copies: ATTESTATION: Dr. Nicholas Santillan was present and supervising for the entire procedure, I Dr. Manuel Fontaine was the initial author of this report. I, Dr. Nicholas Santillan have reviewed and agree with the findings of this report. SUMMARY OF PROCEDURE: - There were no complications. - Successful Dual chamber pacemaker implant. HISTORY AND INDICATIONS: Non-valvular atrial fibrillation. 2:1 AV block. PROCEDURE: - Implant of a dual chamber pacemaker ANESTHESIA: Conscious sedation and local anesthesia. PROCEDURE: The risks, benefits, and alternatives to the procedure and sedation were explained and informed consent was obtained. The patient name, date of , surgical site, and procedure were verified prior to the procedure. The patient was brought to the OR in the fasting state. The chest was prepped and draped in the usual sterile manner. Lidocaine 2% and Bupivacaine 0.5% was administered to the left deltopectoral groove. Left axillary vein access. With the patient in Trendelenburg position and under fluoroscopic guidance the vessel was entered on 2 occasion(s) allowing for placement of 2 soft-tipped J-wire(s) to the level of the inferior vena cava. The attending physician was present for the entire procedure. An incision was made medial and perpendicular to the left deltopectoral groovesubcutaneous. Using blunt dissection and electrocautery to achieve hemostasis, a device pocket was constructed. Lead implantation. The wire was tunneled into the incision area. Using a 7Fr safety sheath, a lead was advanced to the right ventricle under fluoroscopic guidance and actively fixed to the basal right ventricular septum under electrographic guidance to find a W pattern on V1 with pacing from the lead then lead advanced further until electrogram narrowed. Using a 7Fr safety sheath, a lead was then advanced to right atrium under fluoroscopic guidance and actively fixed to the high right atrial septum. The lead(s) were tested before and after suturing the lead sleeve(s) to the pre-pectoralis fascia. Device detail in table below. Wound closure. The pocket was copiously irrigated with bacitracin solution. The leads were attached to the device and the system was placed in the pocket. The wound was closed in three layers. The skin was approximated with steri-strips. The deepest layer was interrupted vertical mattress using 2-0 Monocryl. The mid layer was interrupted horizontal mattress using 3-0 Monocryl. The superficial layer was continuous horizontal mattress using 4-0 Monocryl. Tincture of Benzoin was applied and the skin was approximated with steri-strips. A pressure dressing was applied. IMPLANTED HARDWARE: Implanted device: Biotronik - Gina Yao - Serial number: [id number]. LEAD PARAMETERS + + + + Lead # 1 2 + + + + Chamber RA RV + + + + Date implanted 03/04/2019 03/04/2019 + + + + [employer] information [employer] 1970 Edupathtronic 3830 + + + + Serial number [id number] + + + + Location High RA septum High RV septum + + + + Capture 1V@ 0.4ms 0.5V@ 1ms + + + + Impedance 741Ohms 409Ohms + + + + Sensing 1.8mV No intrinsic value + + + + Status Active Active + + + + PACING SETTINGS + +------+ Mode DDDR + +------+ Lower rate 60bpm + +------+ Upper rate 130bpm + +------+ Mode switch On + +------+ Mode switch rate 160bpm + +------+ Paced AV delay 180ms + +------+ Sensed AV delay 135ms + +------+ CHAMBER SETTINGS + + + + RA RV + + + + Pacing polarity Uni/bipolar Uni/bipolar + + + + Amplitude 2.5V 3.6V + + + + Pulse width 0.4ms 0.4ms + + + + Sensing polarity Bipolar Bipolar + + + + Sensitivity Auto Auto + + + + STUDY COMPLETION Administered medications: Cefazolin (Ancef, Kefzol) , prior to the procedure for infection prophylaxis. - Fluoroscopy time: 3.2min. - Isovue Contrast: 10ml. - Patient in-room time: 11:40 AM. - Patient out-of-room time: 02:15 PM. - Intake: 750ml - Estimated blood loss: 30ml. Clinical Trial: The patient is not enrolled in a clinical trial._ PLAN: See post procedure orders. Bed rest for 3hours. At the completion of the procedure, findings, results, any complications, and treatment plan were communicated to the patient and reinforced after recovery from anesthesia. With the patient's consent, the attending physician communicated findings, results, any complications, and treatment plan to family members and patient support persons who were present at the conclusion of the procedure. POST PROCEDURAL DISPOSITION: Patient was admitted as an inpatient prior to this procedure. Electronically signed by Nicholas Santillan MD, PhD 03/06/2019 19:40 Dimitrios Rand MD CARDIAC EP ORDERABLES Final Result * ECHOCARDIOGRAM (03/04/2019 9:24 EDT) Anatomical Region Laterality Modality Other 03/04/2019 9:24 EDT Narrative 03/04/2019 9:41 EDT *Interpreting Group:* *[facility]* [address] [place] [address] Date of study: 03/04/2019 Transthoracic Echocardiography M-mode, complete 2D, complete spectral Doppler, and color Doppler *STUDY CONCLUSIONS* Summary: 1. Left ventricle: The cavity size was normal. Wall thickness was ?? increased in a pattern of mild LVH. Systolic function was normal. The ?? estimated ejection fraction was 60-65%. Wall motion was normal; there ?? were no regional wall motion abnormalities. 2. Right ventricle: The cavity size was normal. Wall thickness was ?? normal. Systolic function was normal. *PATIENT PRESENTATION* Height: ? 177.8cm ((70in) ) S/D Pressure: 141 / 59 Weight: ? 88kg ((193.6lb) ) BSA: ?2.1m^2 Test start time: ??08:40 AM. Test stop time: ??09:13 AM. REFERRING ?Unknown Doctor ADMITTING ?iDmitrios Rand MD ATTENDING ?Dimitrios Rand MD PERFORMING ?? [facility], Op ORDERING ? Steven Solano SPECIAL DELIVERY CARRIER ??Idalia Chinchilla [facility] *PROCEDURE DATA* Procedure information: ??The patient was identified by two identifiers. This study was interpreted by [facility]. Pertinent images and digital data are archived for permanent storage and are available for subsequent review. ??Study status: Routine. Transthoracic echocardiography. ??M-mode, complete 2D, complete spectral Doppler, and color Doppler. A Transthoracic Echocardiogram was performed. Scanning was performed from the parasternal, apical, subcostal, and suprasternal notch acoustic windows. Images were obtained using an ProtonMail 17 cardiac ultrasound machine. Image quality was adequate. Study completion: ??The patient tolerated the procedure well. *INDICATIONS AND HISTORY* Indications: ?? Bradycardia (R00.1). *CARDIAC ANATOMY* Left ventricle: ??The cavity size was normal. Wall thickness was increased in a pattern of mild LVH. Systolic function was normal. The estimated ejection fraction was 60-65%. Wall motion was normal; there were no regional wall motion abnormalities. Diastolic parameters were normal for age. Aortic valve: ?? Trileaflet; normal thickness leaflets. Mobility was not restricted. ??Doppler: ??Transvalvular velocity was within the normal range. There was no stenosis. There was no significant regurgitation. VTI ratio of LVOT to aortic valve: 0.59. Valve area (VTI): 2cm^2. Indexed valve area (VTI): 0.9cm^2/m^2. Peak velocity ratio of LVOT to aortic valve: 0.59. Valve area (Vmax): 1.8cm^2. Indexed valve area (Vmax): 0.9cm^2/m^2. Mean velocity ratio of LVOT to aortic valve: 0.63. Valve area (Vmean): 2cm^2. Indexed valve area (Vmean): 0.9cm^2/m^2. Mean gradient (S): 7.3mm Hg. Peak gradient (S): 16mm Hg. Aorta: ??Aortic root: The aortic root was normal in size. Mitral valve: ?? Structurally normal valve. ?? Mobility was not restricted. ??Doppler: ??Transvalvular velocity was within the normal range. There was no evidence for stenosis. There was trivial regurgitation. ?Valve area by continuity equation (using LVOT flow): 2cm^2. Indexed valve area by continuity equation (using LVOT flow): 0.9cm^2/m^2. ?Mean gradient (D): 2mm Hg. Peak gradient (D): 11mm Hg. Left atrium: ??The atrium was normal in size. Right ventricle: ??The cavity size was normal. Wall thickness was normal. Systolic function was normal. Pulmonic valve: ?Doppler: ??Transvalvular velocity was within the normal range. There was no evidence for stenosis. There was no significant regurgitation. Tricuspid valve: ?? Structurally normal valve. ?Doppler: ??Transvalvular velocity was within the normal range. There was no evidence for stenosis. There was mild regurgitation. Pulmonary artery: ?? Pulmonary systolic pressure was within the normal range. Right atrium: ??The atrium was normal in size. Pericardium: ??There was no pericardial effusion. Systemic veins: Inferior vena cava: The vessel was normal in size. Measurements Left ventricle ?Value ?Reference LV ID, ED, PLAX ? 4.9 ?? cm ? 3.5 - 6.0 LV ID, ES, PLAX ? 3.3 ?? cm ? 2.1 - 4.0 LV PW thickness, ED, PLAX ? 1.2 ?? cm ? --------- LV end-diastolic volume, 1-p A2C ?122 ?? ml ? --------- LV ejection fraction, 1-p A2C ? 69 ?% ?--------- LV end-diastolic volume, 1-p A4C ?102 ?? ml ? --------- LV ejection fraction, 1-p A4C ? 57 ?% ?--------- LV e', lateral ?0.082 m/sec ?--------- LV E/e', lateral ?17 ? --------- LV e', medial ? 0.069 m/sec ?--------- LV E/e', medial ? 20 ? --------- LV e', average ?0.075 m/sec ?--------- LV E/e', average ?18 ? --------- Ventricular septum ?Value ?Reference IVS thickness, ED, PLAX ? 1.2 ?? cm ? --------- LVOT ?Value ?Reference LVOT ID, S ?2.0 ?? cm ? --------- LVOT area ? 3.1 ?? cm^2 ? --------- LVOT peak velocity, S ? 1.17 ??m/sec ?--------- LVOT mean velocity, S ? 0.8 ?? m/sec ?--------- LVOT VTI, S ? 27.3 ??cm ? --------- LVOT peak gradient, S ? 5.5 ?? mm Hg ?--------- LVOT mean gradient, S ? 3 ? mm Hg ?--------- Stroke volume (SV), LVOT DP ? 90 ?ml ? --------- Stroke index (SV/bsa), LVOT DP ?43 ?ml/m^2 ?? --------- Aortic valve ?Value ?Reference Aortic valve peak velocity, S ? 2 ? m/sec ?--------- Aortic valve mean velocity, S ? 1.26 ??m/sec ?--------- Aortic valve VTI, S ? 46.0 ??cm ? --------- Aortic mean gradient, S ? 7.3 ?? mm Hg ?--------- Aortic peak gradient, S ? 16 ?mm Hg ?--------- VTI ratio, LVOT/AV ?0.59 ? --------- Aortic valve area, VTI ?2 ? cm^2 ? --------- Velocity ratio, peak, LVOT/AV ? 0.59 ? --------- Aortic valve area, peak velocity ?1.8 ?? cm^2 ? --------- Velocity ratio, mean, LVOT/AV ? 0.63 ? --------- Aortic valve area, mean velocity ?2 ? cm^2 ? --------- Aortic valve area/bsa, mean velocity ?0.9 ?? cm^2/m^2 --------- Aorta ? Value ?Reference Aortic root ID ?2.8 ?? cm ? --------- Ascending aorta ID, A-P ? 2.8 ?? cm ? --------- Ascending aorta ID, A-P, S ?2.8 ?? cm ? --------- Left atrium ? Value ?Reference LA ID, A-P, ES ?3.4 ?? cm ? --------- LA ID/bsa, A-P ?1.6 ?? cm/m^2 ?? <=2.2 LA area, ES, A4C ?19.8 ??cm^2 ? 8.8 - ?23.4 LA area, ES, A2C ?21 ?cm^2 ? --------- LA volume, ES, 2-p ?59 ?ml ? --------- LA volume/bsa, ES, 2-p ?28 ?ml/m^2 ?? --------- LA/aortic root ratio ?1.21 ? --------- Mitral valve ?Value ?Reference Mitral E-wave peak velocity ? 1.38 ??m/sec ?--------- Mitral A-wave peak velocity ? 0.74 ??m/sec ?--------- Mitral deceleration time ?222 ?? ms ? 150 - 230 Mitral mean gradient, D ? 2 ? mm Hg ?--------- Mitral peak gradient, D ? 11 ?mm Hg ?--------- Mitral E/A ratio, peak ?1.9 ?--------- Mitral valve area, LVOT continuity ?2 ? cm^2 ? --------- Mitral valve area/bsa, LVOT ? 0.9 ?? cm^2/m^2 --------- continuity Legend: (L) ??and ??(H) ??adam values outside specified reference range. I have personally reviewed the images and have reviewed and edited the reported findings. Electronically signed by Bon Nelson MD 03/04/2019 09:41 Procedure Note Bon Nelson MD - 03/04/2019 *Interpreting Group:* *[facility]* [address] [place] [id number] Date of study: 03/04/2019 Transthoracic Echocardiography M-mode, complete 2D, complete spectral Doppler, and color Doppler *STUDY CONCLUSIONS* Summary: 1. Left ventricle: The cavity size was normal. Wall thickness was increased in a pattern of mild LVH. Systolic function was normal. The estimated ejection fraction was 60-65%. Wall motion was normal; there were no regional wall motion abnormalities. 2. Right ventricle: The cavity size was normal. Wall thickness was normal. Systolic function was normal. *PATIENT PRESENTATION* Height: 177.8cm ((70in) ) S/D Pressure: 141 / 59 Weight: 88kg ((193.6lb) ) BSA: 2.1m^2 Test start time: 08:40 AM. Test stop time: 09:13 AM. REFERRING Unknown Doctor ADMITTING Dimitrios Rand MD ATTENDING Dimitrios Rand MD PERFORMING [facility], Op ORDERING Steven Solano SPECIAL DELIVERY CARRIER Idalia Chinchilla RDCS *PROCEDURE DATA* Procedure information: The patient was identified by two identifiers. This study was interpreted by [facility]. Pertinent images and digital data are archived for permanent storage and are available for subsequent review. Study status: Routine. Transthoracic echocardiography. M-mode, complete 2D, complete spectral Doppler, and color Doppler. A Transthoracic Echocardiogram was performed. Scanning was performed from the parasternal, apical, subcostal, and suprasternal notch acoustic windows. Images were obtained using an [employer] 17 cardiac ultrasound machine. Image quality was adequate. Study completion: The patient tolerated the procedure well. *INDICATIONS AND HISTORY* Indications: Bradycardia (R00.1). *CARDIAC ANATOMY* Left ventricle: The cavity size was normal. Wall thickness was increased in a pattern of mild LVH. Systolic function was normal. The estimated ejection fraction was 60-65%. Wall motion was normal; there were no regional wall motion abnormalities. Diastolic parameters were normal for age. Aortic valve: Trileaflet; normal thickness leaflets. Mobility was not restricted. Doppler: Transvalvular velocity was within the normal range. There was no stenosis. There was no significant regurgitation. VTI ratio of LVOT to aortic valve: 0.59. Valve area (VTI): 2cm^2. Indexed valve area (VTI): 0.9cm^2/m^2. Peak velocity ratio of LVOT to aortic valve: 0.59. Valve area (Vmax): 1.8cm^2. Indexed valve area (Vmax): 0.9cm^2/m^2. Mean velocity ratio of LVOT to aortic valve: 0.63. Valve area (Vmean): 2cm^2. Indexed valve area (Vmean): 0.9cm^2/m^2. Mean gradient (S): 7.3mm Hg. Peak gradient (S): 16mm Hg. Aorta: Aortic root: The aortic root was normal in size. Mitral valve: Structurally normal valve. Mobility was not restricted. Doppler: Transvalvular velocity was within the normal range. There was no evidence for stenosis. There was trivial regurgitation. Valve area by continuity equation (using LVOT flow): 2cm^2. Indexed valve area by continuity equation (using LVOT flow): 0.9cm^2/m^2. Mean gradient (D): 2mm Hg. Peak gradient (D): 11mm Hg. Left atrium: The atrium was normal in size. Right ventricle: The cavity size was normal. Wall thickness was normal. Systolic function was normal. Pulmonic valve: Doppler: Transvalvular velocity was within the normal range. There was no evidence for stenosis. There was no significant regurgitation. Tricuspid valve: Structurally normal valve. Doppler: Transvalvular velocity was within the normal range. There was no evidence for stenosis. There was mild regurgitation. Pulmonary artery: Pulmonary systolic pressure was within the normal range. Right atrium: The atrium was normal in size. Pericardium: There was no pericardial effusion. Systemic veins: Inferior vena cava: The vessel was normal in size. Measurements Left ventricle Value Reference LV ID, ED, PLAX 4.9 cm 3.5 - 6.0 LV ID, ES, PLAX 3.3 cm 2.1 - 4.0 LV PW thickness, ED, PLAX 1.2 cm --------- LV end-diastolic volume, 1-p A2C 122 ml --------- LV ejection fraction, 1-p A2C 69 % --------- LV end-diastolic volume, 1-p A4C 102 ml --------- LV ejection fraction, 1-p A4C 57 % --------- LV e', lateral 0.082 m/sec --------- LV E/e', lateral 17 --------- LV e', medial 0.069 m/sec --------- LV E/e', medial 20 --------- LV e', average 0.075 m/sec --------- LV E/e', average 18 --------- Ventricular septum Value Reference IVS thickness, ED, PLAX 1.2 cm --------- LVOT Value Reference LVOT ID, S 2.0 cm --------- LVOT area 3.1 cm^2 --------- LVOT peak velocity, S 1.17 m/sec --------- LVOT mean velocity, S 0.8 m/sec --------- LVOT VTI, S 27.3 cm --------- LVOT peak gradient, S 5.5 mm Hg --------- LVOT mean gradient, S 3 mm Hg --------- Stroke volume (SV), LVOT DP 90 ml --------- Stroke index (SV/bsa), LVOT DP 43 ml/m^2 --------- Aortic valve Value Reference Aortic valve peak velocity, S 2 m/sec --------- Aortic valve mean velocity, S 1.26 m/sec --------- Aortic valve VTI, S 46.0 cm --------- Aortic mean gradient, S 7.3 mm Hg --------- Aortic peak gradient, S 16 mm Hg --------- VTI ratio, LVOT/AV 0.59 --------- Aortic valve area, VTI 2 cm^2 --------- Velocity ratio, peak, LVOT/AV 0.59 --------- Aortic valve area, peak velocity 1.8 cm^2 --------- Velocity ratio, mean, LVOT/AV 0.63 --------- Aortic valve area, mean velocity 2 cm^2 --------- Aortic valve area/bsa, mean velocity 0.9 cm^2/m^2 --------- Aorta Value Reference Aortic root ID 2.8 cm --------- Ascending aorta ID, A-P 2.8 cm --------- Ascending aorta ID, A-P, S 2.8 cm --------- Left atrium Value Reference LA ID, A-P, ES 3.4 cm --------- LA ID/bsa, A-P 1.6 cm/m^2 <=2.2 LA area, ES, A4C 19.8 cm^2 8.8 - 23.4 LA area, ES, A2C 21 cm^2 --------- LA volume, ES, 2-p 59 ml --------- LA volume/bsa, ES, 2-p 28 ml/m^2 --------- LA/aortic root ratio 1.21 --------- Mitral valve Value Reference Mitral E-wave peak velocity 1.38 m/sec --------- Mitral A-wave peak velocity 0.74 m/sec --------- Mitral deceleration time 222 ms 150 - 230 Mitral mean gradient, D 2 mm Hg --------- Mitral peak gradient, D 11 mm Hg --------- Mitral E/A ratio, peak 1.9 --------- Mitral valve area, LVOT continuity 2 cm^2 --------- Mitral valve area/bsa, LVOT 0.9 cm^2/m^2 --------- continuity Legend: (L) and (H) adam values outside specified reference range. I have personally reviewed the images and have reviewed and edited the reported findings. Electronically signed by Bon Nelson MD 03/04/2019 09:41 Steven Solano MD CARDIAC ECHO ORDERABLES Final R esult * CREATININE (03/04/2019 7:09 EDT) Creatinine 0.80 0.66 - 1.25 mg/dl 03/04/2019 7:49 EDT [facility] GFR, Calculated 91 >60 ml/min/1.7 3m2 03/04/2019 7:49 EDT [facility] Comment: eGFR calculated using CKD-EPI equation for non Americans. Multiply eGFR by 1.16 for Americans. Blood specimen (specimen) BLOOD SPECIMEN / Unknown 03/04/2019 7:09 EDT 03/04/2019 7:14 EDT Genia CAI CHEMISTRY & BLOOD GAS O RDERABLES Final Result Performing Organization Address City/[facility]/ZIP Co de Phone Number [facility] [address] [place] [address] * BUN (03/04/2019 7:09 EDT) BUN 16 10 - 26 mg/dl 03/04/2019 7:49 EDT [facility] Blood specimen (specimen) BLOOD SPECIMEN / Unknown 03/04/2019 7:09 EDT 03/04/2019 7:14 EDT Genia CAI CHEMISTRY & BLOOD GAS O RDERABLES Final Result [facility] [address] [place] [address] * ELECTROLYTES (03/04/2019 7:09 EDT) Sodium 140 136 - 145 mEq/L 03/04/2019 7:49 EDT [facility] Potassium 4.1 3.5 - 5.0 mEq/L 03/04/2019 7:49 EDT [facility] Chloride 110 96 - 110 mEq/L 03/04/2019 7:49 EDT [facility] CO2 23 22 - 32 mEq/L 03/04/2019 7:49 [facility] Blood specimen (specimen) BLOOD SPECIMEN / Unknown 03/04/2019 7:09 EDT 03/04/2019 7:14 EDT us Genia CAIBS CHEMISTRY & BLOOD GAS O RDERABLES Final Result [facility] [address] [place] [address] * (ABNORMAL) COMPLETE BLOOD COUNT (03/04/2019 7:09 EDT) WBC 6.61 4.0 - 10.4 K/cmm 03/04/2019 7:25 [facility] RBC 3.75(L) 4.36 - 5.78 M/cmm 03/04/2019 7:25 [facility] Hemoglobin 10.9(L) 13.8 - 17.3 gm/dl 03/04/2019 7:25 [facility] HCT 32.7(L) 39.5 - 50.2 % 03/04/2019 7:25 [facility] MCV 87 81 - 95 fl 03/04/2019 7:25 [facility] MCH 29.1 27.6 - 33.0 pg 03/04/2019 7:25 [facility] MCHC 33.3 32.8 - 36.4 gm/dl 03/04/2019 7:25 [facility] RDW-CV 14.9(H) <14.2 % 03/04/2019 7:25 [facility] RDW-SD 48.0(H) <46.0 fl 03/04/2019 7:25 [facility] PLT 185 141 - 377 K/cmm 03/04/2019 7:25 [facility] MPV 12.7 9.5 - 12.7 fl 03/04/2019 7:25 [facility] Blood specimen (specimen) BLOOD SPECIMEN / Unknown 03/04/2019 7:09 EDT 03/04/2019 7:14 EDT us Genia CAIBS HEMATOLOGY & PF4 ORDERA BLES Final Result [facility] [address] [place] [address] * EKG 12-LEAD (03/03/2019 14:12 EDT) 03/03/2019 14:1 2 EDT Narrative [facility] - 03/05/2019 14:27 EDT ? [facility] ? Test Date: ?2019-03-03 Pat Name: ? BINDU PERLA ?Department: ?? [facility] ? Room: ? ME507 Gender: ? Male ? Bobj Developer: ?? [id number] : ?1950 ? Requested By: JARROD FABIAN Order Number: [id number] ? Anastasia GARZA: ?? KATELIN SCHRADER MD ? Measurements Intervals ?[place] ? Rate: ? 37 ? P: ? GA: ? 0 ?QRS: ?41 QRSD: ? 138 ?T: ?254 QT: ? 579 ? QTc: ?457 ? Interpretive Statements ATRIAL FIBRILLATION WITH SLOW VENTRICULAR RESPONSE INTRAVENTRICULAR CONDUCTION DELAY NONSPECIFIC ST & T-WAVE ABNORMALITY Compared to ECG 03/02/2019 19:39:49 No significant change Edited by JOSE FERREIRA MD on 03-05-2019 11:53:50 EDT. I reviewed the tracing and have either agreed or edited the findings in this report. Electronically Signed On 03-05-2019 14:27:05 EDT by KATELIN SCHRADER MD. Procedure Note Katelin Schrader MD - 03/05/2019 [facility] Test Date: 2019-03-03 Pat Name: BINDU PERLA Department: [facility] Room: [facility] Gender: Male Bobj Developer: [id number] : 1950 Requested By: JARROD FABIAN Order Number: [id number] Reading MD: KATELIN SCHRADER MD Measurements Intervals [place] Rate: 37 P: GA: 0 QRS: 41 QRSD: 138 T: 254 QT: 579 QTc: 457 Interpretive Statements ATRIAL FIBRILLATION WITH SLOW VENTRICULAR RESPONSE INTRAVENTRICULAR CONDUCTION DELAY NONSPECIFIC ST & T-WAVE ABNORMALITY Compared to ECG 03/02/2019 19:39:49 No significant change Edited by JOSE FERREIRA MD on 03-05-2019 11:53:50 EDT. I reviewed the tracing and have either agreed or edited the findings inthis report. Electronically Signed On 03-05-2019 14:27:05 EDT by KATELIN MENA. Steven Solano MD CARDIAC ECG ORDERABLES Final Re sult [facility] * CREATININE (03/03/2019 6:22 EDT) Creatinine 0.78 0.66 - 1.25 mg/dl 03/03/2019 7:00 EDT [facility] GFR, Calculated 91 >60 ml/min/1.7 3m2 03/03/2019 7:00 EDT [facility] Comment: eGFR calculated using CKD-EPI equation for non Americans. Multiply eGFR by 1.16 for Americans. Blood specimen (specimen) BLOOD SPECIMEN / Unknown 03/03/2019 6:22 EDT 03/03/2019 6:26 EDT Genia TAYLOR CHEMISTRY & BLOOD GAS O RDERABLES Final Result Performing Organization Address City/[facility]/ZIP Co de Phone Number [facility] [address] [place] [address] * BUN (03/03/2019 6:22 EDT) BUN 17 10 - 26 mg/dl 03/03/2019 7:00 EDT [facility] Blood specimen (specimen) BLOOD SPECIMEN / Unknown 03/03/2019 6:22 EDT 03/03/2019 6:26 EDT Genia TAYLOR CHEMISTRY & BLOOD GAS O RDERABLES Final Result Performing Organization Address City/[facility]/ZIP Co de Phone Number [facility] [address] [place] [address] * (ABNORMAL) ELECTROLYTES (03/03/2019 6:22 EDT) Sodium 141 136 - 145 mEq/L 03/03/2019 7:00 EDT [facility] Potassium 4.3 3.5 - 5.0 mEq/L 03/03/2019 7:00 [facility] Chloride 111(H) 96 - 110 mEq/L 03/03/2019 7:00 T [facility] CO2 22 22 - 32 mEq/L 03/03/2019 7:00 T [facility] Blood specimen (specimen) BLOOD SPECIMEN / Unknown 03/03/2019 6:22 EDT 03/03/2019 6:26 EDT us Genia CAIBS CHEMISTRY & BLOOD GAS O RDERABLES Final Result [facility] [address] [place] [address] * (ABNORMAL) COMPLETE BLOOD COUNT (03/03/2019 6:22 EDT) WBC 6.61 4.0 - 10.4 K/cmm 03/03/2019 6:47 [facility] RBC 3.67(L) 4.36 - 5.78 M/cmm 03/03/2019 6:47 [facility] Hemoglobin 10.7(L) 13.8 - 17.3 gm/dl 03/03/2019 6:47 [facility] HCT 31.9(L) 39.5 - 50.2 % 03/03/2019 6:47 [facility] MCV 87 81 - 95 fl 03/03/2019 6:47 [facility] MCH 29.2 27.6 - 33.0 pg 03/03/2019 6:47 [facility] MCHC 33.5 32.8 - 36.4 gm/dl 03/03/2019 6:47 [facility] RDW-CV 15.1(H) <14.2 % 03/03/2019 6:47 EDT [facility] RDW-SD 48.4(H) <46.0 fl 03/03/2019 6:47 EDT [facility] PLT 180 141 - 377 K/cmm 03/03/2019 6:47 T [facility] MPV 12.6 9.5 - 12.7 fl 03/03/2019 6:47 EDT [facility] Blood specimen (specimen) BLOOD SPECIMEN / Unknown 03/03/2019 6:22 EDT 03/03/2019 6:26 EDT Genia TAYLOR HEMATOLOGY & PF4 ORDERA BLES Final Result Performing Organization Address [facility]/ZIP Co de Phone Number [facility] [address] [place] [address] * HOLD GREEN TOP (03/02/2019 20:18 EDT) Hold Green Top Hold for further testing. Specimen will be held for 5 days. 03/02/2019 20:22 T [facility] BLOOD SPECIMEN / Unknown 03/02/2019 20:18 EDT 03/02/2019 20:22 EDT Genia TAYLOR LAB INFO SERVICE AND GUERRERO PPORT & PHONE RESULT Final Result Performing Organization Address [facility] Co de Phone Number [facility] [address] [place] [address] * (ABNORMAL) COMPLETE BLOOD COUNT (03/02/2019 20:18 EDT) WBC 8.07 4.0 - 10.4 K/cmm 03/02/2019 20:33 T [facility] RBC 3.99(L) 4.36 - 5.78 M/cmm 03/02/2019 20:33 [facility] Hemoglobin 11.5(L) 13.8 - 17.3 gm/dl 03/02/2019 20:33 T [facility] HCT 34.7(L) 39.5 - 50.2 % 03/02/2019 20:33 [facility] MCV 87 81 - 95 fl 03/02/2019 20:33 [facility] MCH 28.8 27.6 - 33.0 pg 03/02/2019 20:33 [facility] MCHC 33.1 32.8 - 36.4 gm/dl 03/02/2019 20:33 [facility] RDW-CV 15.0(H) <14.2 % 03/02/2019 20:33 [facility] RDW-SD 48.1(H) <46.0 fl 03/02/2019 20:33 [facility] PLT 202 141 - 377 K/cmm 03/02/2019 20:33 [facility] MPV 12.7 9.5 - 12.7 fl 03/02/2019 20:33 [facility] Blood specimen (specimen) BLOOD SPECIMEN / Unknown 03/02/2019 20:18 EDT 03/02/2019 20:22 EDT Genia CAIBS HEMATOLOGY & PF4 ORDERA BLES Final Result Performing Organization Address City/State/[facility] Co de Phone Number [facility] [address] [place] [id number] * (ABNORMAL) PROTIME (03/02/2019 20:18 EDT) Pro Time 15.5(H) 10.3 - 13.4 secs 03/02/2019 20:56 [facility] I.N.R. 1.3(H) 0.9 - 1.1 Ratio 03/02/2019 20:56 [facility] Comment: Moderate Intensity Coumadin INR = 2.0-3.0 Adjustments in anticoagulant therapy dose should be based upon the INR and NOT the Pro Time. Blood specimen (specimen) BLOOD SPECIMEN / Unknown 03/02/2019 20:18 EDT 03/02/2019 20:22 EDT Genia TAYLOR HEMATOLOGY & PF4 ORDERA BLES Final Result Performing Organization Address [facility] Co de Phone Number [facility] [address] [place] [address] * TSH (03/02/2019 20:18 EDT) TSH 2.15 0.47 - 4.68 uIU/ml 03/02/2019 21:16 EDT [facility] Comment: The results of this assay can be falsely lowered due to the consumption of Biotin. Blood specimen (specimen) BLOOD SPECIMEN / Unknown 03/02/2019 20:18 EDT 03/02/2019 20:22 EDT Genia TAYLOR CHEMISTRY & BLOOD GAS O RDERABLES Final Result Performing Organization Address [facility] Phone Number [facility] [address] [place] [address] * (ABNORMAL) SCREENING GLUCOSE (03/02/2019 20:18 EDT) Glucose, Screening 108(H) 70 - 100 mg/dl 03/02/2019 20:41 EDT [facility] Blood specimen (specimen) BLOOD SPECIMEN / Unknown 03/02/2019 20:18 EDT 03/02/2019 20:22 EDT Genia TAYLOR CHEMISTRY & BLOOD GAS O RDERABLES Final Result Performing Organization Address [facility] Co de Phone Number [facility] [address] [place] [address] * MAGNESIUM (03/02/2019 20:18 EDT) Magnesium 2.1 1.7 - 2.8 mg/dl 03/02/2019 20:41 EDT [facility] Blood specimen (specimen) BLOOD SPECIMEN / Unknown 03/02/2019 20:18 EDT 03/02/2019 20:22 EDT Geina TAYLOR CHEMISTRY & BLOOD GAS O RDERABLES Final Result Performing Organization Address City/[facility]/ZIP Co de Phone Number [facility] [address] [place] [address] * (ABNORMAL) ELECTROLYTES (03/02/2019 20:18 EDT) Sodium 143 136 - 145 mEq/L 03/02/2019 20:41 EDT [facility] Potassium 4.2 3.5 - 5.0 mEq/L 03/02/2019 20:41 EDT [facility] Chloride 111(H) 96 - 110 mEq/L 03/02/2019 20:41 EDT [facility] CO2 22 22 - 32 mEq/L 03/02/2019 20:41 EDT [facility] Blood specimen (specimen) BLOOD SPECIMEN / Unknown 03/02/2019 20:18 EDT 03/02/2019 20:22 EDT Genia TAYLOR CHEMISTRY & BLOOD GAS O RDERABLES Final Result Performing Organization Address [facility] Co de Phone Number [facility] [address] [place] [address] * CREATININE (03/02/2019 20:18 EDT) Creatinine 0.74 0.66 - 1.25 mg/dl 03/02/2019 20:41 EDT [facility] GFR, Calculated 93 >60 ml/min/1.7 3m2 03/02/2019 20:41 EDT [facility] Comment: eGFR calculated using CKD-EPI equation for non Americans. Multiply eGFR by 1.16 for Americans. Blood specimen (specimen) BLOOD SPECIMEN / Unknown 03/02/2019 20:18 EDT 03/02/2019 20:22 EDT Genia TAYLOR CHEMISTRY & BLOOD GAS O RDERABLES Final Result Performing Organization Address City/[facility]/ZIP Co de Phone Number [facility] [address] [place] [address] * BUN (03/02/2019 20:18 EDT) BUN 13 10 - 26 mg/dl 03/02/2019 20:41 EDT [facility] Blood specimen (specimen) BLOOD SPECIMEN / Unknown 03/02/2019 20:18 EDT 03/02/2019 20:22 EDT us Genia Schulz BS CHEMISTRY & BLOOD GAS O RDERABLES Final Result [facility] [address] [place] [address] * AST (03/02/2019 20:18 EDT) AST 36 15 - 46 U/L 03/02/2019 20:41 EDT [facility] Blood specimen (specimen) BLOOD SPECIMEN / Unknown 03/02/2019 20:18 EDT 03/02/2019 20:22 EDT us Genia Schulz BS CHEMISTRY & BLOOD GAS O RDERABLES Final Result Performing Organization Address City/[facility]/ZIP Co de Phone Number [facility] [address] [place] [address] * ALT (03/02/2019 20:18 EDT) ALT 49 21 - 72 U/L 03/02/2019 20:41 EDT [facility] Blood specimen (specimen) BLOOD SPECIMEN / Unknown 03/02/2019 20:18 EDT 03/02/2019 20:22 EDT Genia Schulz BS CHEMISTRY & BLOOD GAS O RDERABLES Final Result Performing Organization Address City/[facility]/ZIP Co de Phone Number [facility] [address] [place] [address] * ALKALINE PHOSPHATASE (03/02/2019 20:18 EDT) Total Alkaline Phosphatase 85 38 - 126 U/L 03/02/2019 20:41 EDT [facility] Blood specimen (specimen) BLOOD SPECIMEN / Unknown 03/02/2019 20:18 EDT 03/02/2019 20:22 EDT us Genia Schulz MBBS CHEMISTRY & BLOOD GAS O RDERABLES Final Result [facility] [address] [place] [address] * EKG 12-LEAD (03/02/2019 19:39 EDT) 03/02/2019 19:3 9 EDT Narrative [facility] - 03/05/2019 10:53 EDT ? [facility] ? Test Date: ?2019-03-02 Pat Name: ? BINDU PERLA ?Department: ?? [facility] [address] ? Room: ? ME507 Gender: ? Male ? Bobj Developer: ?? [id number] : ?1950 ? Requested By: ROMY Guevara Order Number: [id number] ? Anastasia GARZA: ?? KEY JARVIS MD ? Measurements Intervals ?[place] ? Rate: ? 36 ? P: ? GA: ? 0 ?QRS: ?71 QRSD: ? 141 ?T: ?-63 QT: ? 586 ? QTc: ?457 ? Interpretive Statements ATRIAL FIBRILLATION Intraventricular conduction delay I reviewed the tracing and have either agreed or edited the findings in this report. Electronically Signed On 03-05-2019 10:53:33 EDT by KEY JARVIS MD. Procedure Note Key Jarvis MD - 03/05/2019 [facility] Test Date: 2019-03-02 Pat Name: BINDU PERLA Department: [place] [address] Room: [facility] Gender: Male Bobj Developer: [id number] : 1950 Requested By: ROMY Guevara Order Number: [id number] Anastasia MD: KEY JARVIS MD Measurements Intervals [place] Rate: 36 P: GA: 0 QRS: 71 QRSD: 141 T: -63 QT: 586 QTc: 457 Interpretive Statements ATRIAL FIBRILLATION Intraventricular conduction delay I reviewed the tracing and have either agreed or edited the findings inthis report. Electronically Signed On 03-05-2019 10:53:33 EDT by KEY PICHARDO. us Genia TAYLOR CARDIAC ECG ORDERABLES Final Result [facility] EKG documented in this encounter Visit Diagnoses Diagnosis Symptomatic bradycardia- Primary Other specified cardiac dysrhythmias Bradycardia Other specified cardiac dysrhythmias Symptomatic bradycardia Other specified cardiac dysrhythmias Complete heart block (HCC-CMS) Atrioventricular block, complete documented in this encounter Administered Medications Inactive Administered Medications - up to 3 most recent administrations Medication Order MAR Action Action Date Dose Rate Site acetaminophen (TYLENOL) tablet 650 mg 650 mg, oral, EVERY 4 HOURS PRN, Starting on Mon03/02/19 at 1930, Until Mon03/05/19 at 1750, Pain, Routine Given 03/05/2019 9:25 EDT 650 mg Given 03/05/2019 1:46 EDT 650 mg Given 03/04/2019 21:57 EDT 650 mg albuterol inhaler 2 puff 2 Puff, inhalation, EVERY 4 HOURS PRN, Starting on Mon03/02/19 at 2257, Until Mon03/05/19 at 1750, Wheezing, Routine amLODIPine (NORVASC) tablet 10 mg 10 mg, oral, DAILY, First dose on Mon03/03/19 at 0900, Until Discontinued, Routine Given 03/05/2019 9:19 EDT 10 mg Given 03/04/2019 9:49 EDT 10 mg Given 03/03/2019 9:43 EDT 10 mg apixaban (ELIQUIS) tablet 5 mg 5 mg, oral, 2 TIMES DAILY, First dose on Mon03/02/19 at 2100, Until Discontinued, Routine Given 03/04/2019 9:49 EDT 5 mg Given 03/03/2019 20:21 EDT 5 mg Given 03/03/2019 9:43 EDT 5 mg apixaban (ELIQUIS) tablet 5 mg 5 mg, oral, 2 TIMES DAILY, First dose (after last modification) on Mon03/05/19 at 2100, Until Discontinued, Routine bupivacaine (PF) (MARCAINE) 0.5 % (5 mg/mL) injection 1 dose, Starting on Mon03/04/19 at 1126, Until Mon03/05/19 at 1750 ceFAZolin (ANCEF) 2 g in sodium chloride 0.9% 50 mL IVPB 2 g, intravenous, Administer over 30 Minutes, EVERY 8 HOURS, 3 doses, First dose on Mon03/04/19 at 2000, Last dose on Mon03/05/19 at 1200, Routine, On Unit Given 03/05/2019 11:38 EDT 2 g Given 03/05/2019 3:52 EDT 2 g Given 03/04/2019 20:00 EDT 2 g ceFAZolin (ANCEF) injection intravenous, PRN, Starting on Mon03/04/19 at 1158, Until Mon03/04/19 at 1158, Routine Given 03/04/2019 11:58 EDT 2 g IV chlorhexidine gluconate 2 % cloth 1 each 1 Each, topical, PRE-OP MULTIPLE, 2 doses, Starting on Mon03/04/19 at 0827, Until Mon03/05/19 at 1750, Other, Pre-Procedure, Routine Given 03/04/2019 9:56 E DT 1 Each clopidogrel (PLAVIX) tablet 75 mg 75 mg, oral, DAILY, First dose on Mon03/03/19 at 0900, Until Discontinued, Routine Given 03/05/2019 9:20 EDT 75 mg Given 03/04/2019 9:49 EDT 75 mg Given 03/03/2019 9:43 EDT 75 mg fentaNYL citrate (PF) 50 mcg/mL injection 1 dose, Starting on Mon03/04/19 at 1126, Until Mon03/05/19 at 1750 fentaNYL citrate (PF) injection intravenous, PRN, Starting on Mon03/04/19 at 1158, Until Mon03/04/19 at 1325, Routine Given 03/04/2019 13:25 EDT 25 mc g Given 03/04/2019 13:20 EDT 25 mcg Given 03/04/2019 13:08 EDT 25 mcg fluticasone propionate (FLONASE) nasal spray 100 mcg 100 mcg, nasal - both, DAILY, First dose on Mon03/02/19 at 2100, Until Discontinued, Routine Given 03/05/2019 9:27 EDT 10 0 mcg Given 03/04/2019 10:24 EDT 100 mcg Given 03/03/2019 9:43 EDT 100 mcg ketOROLAC (TORADOL) 30 mg/mL (1 mL) injection 1 dose, Starting on Mon03/04/19 at 1232, Until Mon03/05/19 at 1750 ketOROLAC (TORADOL) injection intravenous, PRN, Starting on Mon03/04/19 at 1231, Until Mon03/04/19 at 1231, Routine Given 03/04/2019 12:31 EDT 30 mg IV lidocaine 20 mg/mL (2 %) injection 1 dose, Starting on Mon03/04/19 at 1126, Until Mon03/05/19 at 1750 lisinopril (PRINIVIL, ZESTRIL) tablet 20 mg 20 mg, oral, DAILY, First dose on Mon03/03/19 at 0900, Until Discontinued, Routine Given 03/05/2019 9:20 EDT 20 mg Given 03/04/2019 9:49 EDT 20 mg Given 03/03/2019 9:43 EDT 20 mg midazolam (PF) (VERSED) 1 mg/mL injection 1 dose, Starting on Mon03/04/19 at 1126, Until Mon03/05/19 at 1750 midazolam (PF) (VERSED) 1 mg/mL injection 1 dose, Starting on Mon03/04/19 at 1335, Until Mon03/05/19 at 1750 midazolam (PF) (VERSED) injection intravenous, PRN, Starting on Mon03/04/19 at 1159, Until Mon03/04/19 at 1347, Routine Given 03/04/2019 13:47 EDT 1 mg Given 03/04/2019 13:36 EDT 1 mg Given 03/04/2019 13:25 EDT 0.5 mg oxyCODONE (ROXICODONE) immediate release tablet 5 mg 5 mg, oral, AT BEDTIME PRN, Starting on 03/02/19 at 2121, Until Mon03/05/19 at 1750, Pain, Routine Given 03/04/2019 19:59 EDT 5 mg Given 03/03/2019 20:21 EDT 5 mg Given 03/02/2019 22:31 EDT 5 mg pantoprazole (PROTONIX) tablet 40 mg 40 mg, oral, DAILY, First dose on Mon03/03/19 at 0900, Until Discontinued Given 03/05/2019 9:21 EDT 40 mg Given 03/04/2019 9:49 EDT 40 mg Given 03/03/2019 9:43 EDT 40 mg sodium chloride 0.9 % (NS) infusion intravenous, FA IP EQF CONTINUOUS PRN FOR ONE STEP MEDS, Starting on 03/04/19 at 1317, Until Mon03/04/19 at 1317, Routine New Bag 03/04/2019 13:17 EDT 25 mL/hr 25 mL/hr sodium chloride 0.9 % flush 3 mL 3 mL, intravenous, EVERY 8 HOURS, First dose on 03/03/19 at 0000, Until Discontinued, Routine Given 03/05/2019 9:27 EDT 3 mL Given 03/04/2019 23:39 EDT 3 mL Given 03/04/2019 17:13 EDT 3 mL documented in this encounter Historical Medications * This list may reflect changes made after this encounter. nitroGLYCERIN (NITROSTAT) 0.[address] 0.4 mg under the tongue every 5 minutes as needed for Chest Pain. polyethylene glycol 3350 (MIRALAX) 17 gram packet Take 17 g by mouth daily. fluticasone propionate (FLONASE) 50 mcg/actuation nasal spray Instill 100 mcg into both nostrils daily. metoprolol XL (TOPROL-XL) 25 mg tablet Take 25 mg by mouth daily. esomeprazole (NEXIUM) 20 mg capsule Take 40 mg by mouth every morning before breakfast. acetaminophen-cod eine (TYLENOL #4) 300-60 mg per tablet Take 1 tablet by mouth every 8 hours as needed. amLODIPine (NORVASC) 5 mg tablet Take 10 mg by mouth daily. lisinopril (PRINIVIL, ZESTRIL) 10 mg tablet Take 20 mg by mouth daily. traMADol (ULTRAM) 50 mg tablet Take 50 mg by mouth every 6 hours as needed for Pain. albuterol 90 mcg/actuation inhaler Inhale 2 puffs as directed every 6 hours as needed for Wheezing. clopidogrel (PLAVIX) 75 mg tablet Take 75 mg by mouth daily. apixaban (ELIQUIS) 2.5 mg tablet Take 5 mg by mouth 2 times daily. added in this encounter Active and Recently Administered Medications Times are shown in EDT. Scheduled Medication Order 03/03/2019 03/04/2019 03/05/2019 amLODIPine (NORVASC) tablet 10 mg 10 mg, oral, DAILY, First dose on Mon03/03/19 at 0900, Until Discontinued, Routine 0943 (Given - Provider: Monserrat Lawrence RN) 0949 (Given - Provider: Monserrat Lawrence RN) 0919 (Given - Provider: Sarah Beth Barton) apixaban (ELIQUIS) tablet 5 mg (CANCELED) 5 mg, oral, 2 TIMES DAILY, First dose on Mon03/02/19 at 2100, Until Discontinued, Routine 0943 (Given - Provider: Monserrat Lawrence RN)2020 (Given - Provider: Monserrat Lawrence RN) 0949 (Given - Provider: Monserrat Lawrence RN) apixaban (ELIQUIS) tablet 5 mg 5 mg, oral, 2 TIMES DAILY, First dose (after last modification) on Mon03/05/19 at 2100, Until Discontinued, Routine ceFAZolin (ANCEF) 2 g in sodium chloride 0.9% 50 mL IVPB (COMPLETED) 2 g, intravenous, Administer over 30 Minutes, EVERY 8 HOURS, 3 doses, First dose on Mon03/04/19 at 2000, Last dose on Mon03/05/19 at 1200, Routine, On Unit 2000 (Given - Provider: Beti Ferguson RN) 0352 (Given - Provider: Beti Ferguson RN)1138 (Given - Provider: Sarah Beth Barton) clopidogrel (PLAVIX) tablet 75 mg 75 mg, oral, DAILY, First dose on Mon03/03/19 at 0900, Until Discontinued, Routine 0943 (Given - Provider: Monserrat Lawrence RN) 0949 (Given - Provider: Monserrat Lawrence RN) 0920 (Given - Provider: Sarah Beth Barton) fluticasone propionate (FLONASE) nasal spray 100 mcg 100 mcg, nasal - both, DAILY, First dose on Mon03/02/19 at 2100, Until Discontinued, Routine 0943 (Given - Provider: Monserrat Lawrence RN) 1024 (Given - Provider: Monserrat Lawrnece RN) 0927 (Given - Provider: Sarah Beth Barton - Comment: pt report self administering this morning) lisinopril (PRINIVIL, ZESTRIL) tablet 20 mg 20 mg, oral, DAILY, First dose on Mon03/03/19 at 0900, Until Discontinued, Routine 0943 (Given - Provider: Monserrat Lawrence RN) 0949 (Given - Provider: Monserrat Lawrence RN) 0920 (Given - Provider: Sarah Beth Barton) pantoprazole (PROTONIX) tablet 40 mg 40 mg, oral, DAILY, First dose on 03/03/19 at 0900, Until Discontinued 0943 (Given - Provider: Monserrat Lawrence RN) 0949 (Given - Provider: Monserrat Lawrence RN) 0921 (Given - Provider: Sarah Beth Barton) polyethylene glycol 3350 (MIRALAX) packet 17 g 17 g, oral, DAILY, First dose on 03/03/19 at 0900, Until Discontinued, Routine 0953 (Not Given - Provider: Monserrat Lawrence RN - Reason: Patient/family refused) 0949 (Not Given - Provider: Monserrat Lawrence RN - Reason: Patient/family refused) 1001 (Not Given - Provider: Monserrat Lawrence RN - Reason: Patient/family refused) sodium chloride 0.9 % flush 3 mL 3 mL, intravenous, EVERY 8 HOURS, First dose on 03/03/19 at 0000, Until Discontinued, Routine 0942 (Given - Provider: Monserrat Lawrence RN)1558 (Given - Provider: Monserrat Lawrence RN)2325 (Given - Provider: Froylan Aleman RN) 0949 (Given - Provider: Monserrat Lawrence RN)1713 (Given - Provider: Monserrat Lawrence RN)2339 (Given - Provider: Beti Ferguson RN) 0927 (Given - Provider: Sarah Beth Barton)1600 (Canceled Entry - Provider: Batch Job User Admin - Comment: Automatically canceled at discontinue of medication order) PRN Medication Order 03/03/2019 03/04/2019 03/05/2019 acetaminophen (TYLENOL) tablet 650 mg 650 mg, oral, EVERY 4 HOURS PRN, Starting on 03/02/19 at 1930, Until Tu03/05/19 at 1750, Pain, Routine 1447 (Given - Provider: Monserrat Lawrence RN)2316 (Given - Provider: Froylan Aleman RN) 2157 (Given - Provider: Froylan Aleman, TO) 0146 (Given - Provider: Beti Ferguson RN)0925 (Given - Provider: Sarah Beth Barton) albuterol inhaler 2 puff 2 Puff, inhalation, EVERY 4 HOURS PRN, Starting on Mon03/02/19 at 2257, Until Mon03/05/19 at 1750, Wheezing, Routine ceFAZolin (ANCEF) injection (COMPLETED) intravenous, PRN, Starting on Mon03/04/19 at 1158, Until Mon03/04/19 at 1158, Routine 1158 (Given - Provider: Lesli Obrien, TO) chlorhexidine gluconate 2 % cloth 1 each 1 Each, topical, PRE-OP MULTIPLE, 2 doses, Starting on Mon03/04/19 at 0827, Until Mon03/05/19 at 1750, Other, Pre-Procedure, Routine 0956 (Given - Provider: Monserrat Lawrence RN) fentaNYL citrate (PF) injection (COMPLETED) intravenous, PRN, Starting on Mon03/04/19 at 1158, Until Mon03/04/19 at 1325, Routine 1158 (Given - Provider: Lesli Obrien RN)1229 (Given - Provider: Lesli Obrien RN)1308 (Given - Provider: Lesli Obrien RN)1320 (Given - Provider: Lesli Obrien RN)1325 (Given - Provider: Lesli Obrien RN) ketOROLAC (TORADOL) injection (COMPLETED) intravenous, PRN, Starting on Mon03/04/19 at 1231, Until Mon03/04/19 at 1231, Routine 1231 (Given - Provider: Lesli Obrien RN) midazolam (PF) (VERSED) injection (COMPLETED) intravenous, PRN, Starting on Mon03/04/19 at 1159, Until Mon03/04/19 at 1347, Routine 1159 (Given - Provider: Lesli Obrien RN)1229 (Given - Provider: Lesli Obrien RN)1320 (Given - Provider: Tunde José, RN)1325 (Given - Provider: Tunde José, RN)1336 (Given - Provider: Tunde José, RN)1347 (Given - Provider: Tunde José, RN) oxyCODONE (ROXICODONE) immediate release tablet 5 mg 5 mg, oral, AT BEDTIME PRN, Starting on 03/02/19 at 2121, Until Mon03/05/19 at 1750, Pain, Routine 2020 (Given - Provider: Monserrat Lawrence, RN) 1958 (Given - Provider: Beti Ferguson RN) sodium chloride 0.9 % (NS) infusion (COMPLETED) intravenous, FA IP EQF CONTINUOUS PRN FOR ONE STEP MEDS, Starting on Mon03/04/19 at 1317, Until Mon03/04/19 at 1317, Routine 1317 (New Bag - Provider: Lesli Obrien, TO - Comment: 500 CC BAG) No Frequency Medication Order 03/03/2019 03/04/2019 03/05/2019 bupivacaine (PF) (MARCAINE) 0.5 % (5 mg/mL) injection 1 dose, Starting on Mon03/04/19 at 1126, Until Mon03/05/19 at 1750 fentaNYL citrate (PF) 50 mcg/mL injection 1 dose, Starting on Mon03/04/19 at 1126, Until Mon03/05/19 at 1750 ketOROLAC (TORADOL) 30 mg/mL (1 mL) injection 1 dose, Starting on Mon03/04/19 at 1232, Until Mon03/05/19 at 1750 lidocaine 20 mg/mL (2 %) injection 1 dose, Starting on Mon03/04/19 at 1126, Until Mon03/05/19 at 1750 midazolam (PF) (VERSED) 1 mg/mL injection 1 dose, Starting on Mon03/04/19 at 1126, Until Mon03/05/19 at 1750 midazolam (PF) (VERSED) 1 mg/mL injection 1 dose, Starting on Mon03/04/19 at 1335, Until Mon03/05/19 at 1750 documented in this encounter Orders Medications Ordered That Alex ht Not Have Been Administered Count Last Ordered Date First Ordered Date apixaban (ELIQUIS) tablet 5 mg 1 03/04/2019 bupivacaine (PF) (MARCAINE) 0.5 % (5 mg/mL) injection 1 03/04/2019 fentaNYL citrate (PF) 50 mcg/mL injection 1 03/04/2019 ketOROLAC (TORADOL) 30 mg/mL (1 mL) injection 1 03/04/2019 lidocaine 20 mg/mL (2 %) injection 1 2018 midazolam (PF) (VERSED) 1 mg/mL injection 2 03/04/2019 albuterol inhaler 2 puff 2 03/02/2019 oxyCODONE (ROXICODONE) immed iate release tablet 10 mg 1 03/02/2019 polyethylene glycol 3350 (NM RALAX) packet 17 g 1 03/02/2019 Diet Count Last Ordered Date First Orde red Date DISCHARGE DIET 2 03/04/2019 Nursing Count Last Ordered Date First Orde red Date INSERT PERIPHERAL IV 1 03/04/2019 WOUND CARE INSTRUCTIONS 1 03/04/2019 VTE PHARMACOLOGIC PROPHYLAXI S CURRENTLY ORDERED OR ON ALTERNATIVE THER 1 03/02/2019 IV Count Last Ordered Date First Orde red Date IV REQUEST 1 03/04/2019 Admission Count Last Ordered Date First Orde red Date STATUS: INPATIENT ACUTE ADMISSION 1 019 Transfer Count Last Ordered Date First Orde red Date NOTIFY PPS OF DISCHARGE COMPLETE 2 03/05/20 19 UR PATIENT STATUS CHANGE 1 03/02/2019 Discharge Count Last Ordered Date First Orde red Date DISCHARGE PATIENT 1 03/05/2019 Legal Count Last Ordered Date First Orde red Date MISCELLANEOUS DISCHARGE INSTRUCTIONS 2 02/12 documented in this encounter Care Teams Channel Marketing Manager Relationship Specialty Start Date End Date Unknown, Provider, PCP - General 12/10/14 03/03/19 Yoko Esqueda MD [address] [facility] [place] [phone] PCP - General 03/04/19 documented as of this encounter
--- OUTSIDE RECORDS SUMMARY | 2024-12-13 01:24 | XMS_ITS | Encounter Summary ---
Author Organization [facility] Address [address] [place] [address] Care Team Providers Care Hot Press Operator Name Role Phone Yoko Esqueda MD Primary Care Provider Reason for Visit * Reason Comments Other Encounter Details Date Type Department Care Team (Late st Contact Info) Description 02/17/2020 Refill [facility] Cardiology Clinic [address] [place] [address] Marcus Bautista MD [address] [facility] [place] [address] Other Social History Tobacco Use Types Packs/Day Years [...] encounter Miscellaneous Notes * Telephone Encounter - Warren Acosta RN - 02/17/2020 1113 EDT Rx refused. Pt is followed by [facility] Cardiology. documented in this encounter Plan of Treatment Not on file documented as of this encounter Visit Diagnoses Not on filedocumented in this encounter Care Teams Hot Press Operator Relationship Specialty Start Date End Date Yoko Esqueda MD [address] [facility] [address] [place] [phone] PCP - General 03/04/19 documented as of this encounter
--- OUTSIDE RECORDS SUMMARY | 2024-12-13 01:24 | XMS_ITS | Encounter Summary ---
Author Organization [facility] Address [address] [place] [address] Care Team Providers Care Player Development Manager Name Role Phone Unavailable Primary Care Provider Unavailabl e Encounter Details Date Type Department Care Team (Late st Contact Info) Description 12/15/1999 Results Only [facility] - [facility] [address] [place] [address] Talat Esquivel MD Social History Tobacco Use Types Packs/Day [...] Procedure Name Priority Date/Time Associated Diagnosis Comments SURGICAL PATHOLOGY Routine 12/15/1999 15 :19 EST documented in this encounter Results * SURGICAL PATHOLOGY (12/15/1999 15:19 EST) Pathology Report: SURGICAL PATHOLOGY REPORT Reports generated via electronic interface contain original data; however they are lacking the format of the original report. Caution should be taken when reading/interpreti ng unformatted reports. Name: ? BINDU PERLA ? Accession #: ? [id number] ? : ? 1950 (Age: 49) ??M ? Collect Date: ? 12/15/1999 ? Location: ?Receive Date: ? 12/15/1999 ? Provider: TALAT ESQUIVEL MD Copy to: ATLAT ROSADO MD ? Final Pathologic Diagnosis: MICROSCOPIC DIAGNOSIS: ? 1. ??Stomach, antrum, biopsy: ? - Oxyntic type mucosa with no specific pathologic features. ? 2. ??Gastroesophageal junction, biopsies: ? - Squamous mucosa with no specific pathologic features. Document reviewed and electronically signed by: Conversion for GIANNA SORIANO Report ??Date: 12/17/1999 00:00 By the signature above, the attending physician certifies that he/she has personally conducted a gross and/or microscopic examination of the described specimens and rendered or confirmed the above diagnosis. Specimen(s) Received: TISSUE SUBMITTED: ? 1. Antrum ? 2. EG junction CLINICAL DATA: ? 1. R/O H. pylori etc.; 2. R/O GERD; nl exam; sympt GERD --> JEGD Gross Description: GROSS: ? Received in Hollande's fixative labelled Bert and 1. ? antrum is a aguirre-sun irregular 0.3 x 0.2 x 0.2 soft tissue ? fragment. ??The specimen is entirely submitted as (A). ? Received in Hollande's fixative labelled Ebrt and 2. EG ? junction are three aguirre-sun irregular soft tissues ranging from ? 0.2 x 0.2 x 0.2 to 0.6 x 0.2 x 0.1 cm. ??The specimen is entirely ? submitted as (B). ??(Renee Becker)/[facility] ? End of Report MARYA MALDONADO 12/15/1999 15:1 9 EST 12/15/1999 15:20 EST us Talat Esquivel MD PATHOLOGY ORDERABLES Final Resul t Performing Organization Address City/State/[facility] Co de Phone Number MARYA [facility] [address] [place] [address] documented in this encounter Visit Diagnoses Not on filedocumented in this encounter
--- OUTSIDE RECORDS SUMMARY | 2024-12-13 01:24 | XMS_ITS | Encounter Summary ---
Author Organization [facility] Address [address] [place] [address] Care Team Providers Care Software Engineer Mobile Name Role Phone Yoko Esqueda MD Primary Care Provider Reason for Visit * Reason Comments Other Encounter Details Date Type Department Care Team (Late st Contact Info) Description 12/23/2019 Refill [facility] Cardiology Clinic [address] [place] [address] Marcus Bautista MD [address] [facility] [place] [address] Other Social History Tobacco Use [...] encounter Miscellaneous Notes * Telephone Encounter - Judy Singh RN - 12/23/2019 2999 EST Refused RF as patient is not seen in this office documented in this encounter Plan of Treatment Not on file documented as of this encounter Visit Diagnoses Not on filedocumented in this encounter Care Teams Software Engineer Mobile Relationship Specialty Start Date End Date Yoko Esqueda MD [address] [facility] [address] [place] [phone] PCP - General 03/04/19 documented as of this encounter
--- OUTSIDE RECORDS SUMMARY | 2024-12-13 01:24 | XMS_ITS | Encounter Summary ---
Author Organization [facility] Address [address] [place] [address] Care Team Providers Care Stamp Mounter Name Role Phone Yoko Esqueda MD Primary Care Provider Reason for Visit * Reason Onset Date Comments Pacemaker/Device Check 01/24/2020 remote mo nitor status Encounter Details Date Type Department Care Team (Late st Contact Info) Description 01/24/2020 Telephone [facility] Cardiology - [address] [place] [address] Pacemaker, Provider 1 Pacemaker/Device Check (remote monitor status) Social History Tobacco Use Types [...] * Telephone Encounter - Nancy Beauchamp - 01/24/2020 1537 EDT Called [facility] device clinic to follow up on remote monitor status for pt. Looking to transfer information to them as pt has their device managed there. According to them [facility] manages their remotes. [facility] will call [facility] to follow up as it doesn't appear that they are getting any remote information (monitor has been deactivated since May 2019.) documented in this encounter Plan of Treatment Not on file documented as of this encounter Visit Diagnoses Not on filedocumented in this encounter Care Teams Stamp Mounter Relationship Specialty Start Date End Date Yoko Esqueda MD [address] [place] [phone] PCP - General 03/04/19 documented as of this encounter
--- OUTSIDE RECORDS SUMMARY | 2024-12-13 01:24 | XMS_ITS | Encounter Summary ---
Author Organization [facility] Address [address] [place] [address] Care Team Providers Care Clinical Rehabilitation Aide Name Role Phone Unavailable Primary Care Provider Unavailabl e Encounter Details Date Type Department Care Team (Late st Contact Info) Description 12/08/2014 Results Only [facility] [phone] Nahun Duong MD [address] [place] [address] [address] [place], [place] [phone] Social History Tobacco Use Types Packs/Day Years [...] Date/Time Associated Diagnosis Comments SURGICAL PATHOLOGY Routine 12/08/2014 9:06 EST documented in this encounter Results * SURGICAL PATHOLOGY (12/08/2014 9:06 EST) Pathology Report: SURGICAL PATHOLOGY REPORT Reports generated via electronic interface contain original data; however they are lacking the format of the original report. Caution should be taken when reading/interpret ing unformatted reports. Name: ? BINDU PERLA ? Accession #: ? [id number] ? : ? 1950 (Age: 64) ??M ? Collect Date: ? 12/08/2014 ? Location: ? [facility] ? Receive Date: ? 12/09/2014 ? Provider: NAHUN DUONG MD Copy to: ALLAN DOBBS MD ? Final Pathologic Diagnosis: RECTUM, POLYP, BIOPSY: - ??Tubular adenoma. Document reviewed and electronically signed by: RENA DEXTER MD Report ??Date: 12/12/2014 10:02 By the signature above, the attending physician certifies that he/she has personally conducted a gross and/or microscopic examination of the described specimens and rendered or confirmed the above diagnosis. Specimen(s) Received: Rectal polyp Clinical History: Colorectal screen Gross Description: ? Received in formalin labelled with proper patient identification (initials S, D) and rectal polyp is a single pink-aguirre tissue fragment (0.3 x 0.3 x 0.3 cm). Submitted intact in block 1. Carol Mahoney 12/09/2014 09:54 AM End of Report [facility] 12/08/2014 9:06 EST 12/09/2014 9:06 EST us Nahun Duong MD PATHOLOGY ORDERABLES Fin al Result [facility] [address] [place] [address] documented in this encounter Visit Diagnoses Not on filedocumented in this encounter
[2024-12-13 12:27] LABS: HCT 45.6 % (40.0-50.0); HGB 15.4 g/dL (13.5-17.5); MCH 31.6 pg (27.0-33.0); MCHC 33.8 % (32.0-36.0); MCV 93 fL (80-95); MPV 11.9 fL (8.0-11.0); Platelet Count 214 10^3/uL (130-400); RBC 4.88 10^6/uL (4.36-5.78); RDW 12.7 % (11.8-14.1); RDW-SD 44.1 fL; WBC 7.65 10^3/uL (4.4-10.8)
[2024-12-13 13:00] LABS: ALT 52 U/L (16-63); AST 40 U/L (15-37); Alkaline Phosphatase 98 U/L (46-116); Anion Gap 8.4 mmol/L (3-11); BUN 15 mg/dL (7-18); CO2 29.6 mmol/L (21.0-32.0); CREATININE 1.2 mg/dL (0.70-1.30); Calcium 9.8 mg/dL (8.5-10.1); Calculated LDL 124 mg/dL (<100); Chloride 104 mmol/L (98-107); Cholesterol 208 mg/dL (<200); Estimated GFR 62.67 (mL/min/1.73m2); Glucose 143 mg/dL (74-106); HDL Cholesterol 74 mg/dL (40-60); Potassium 4.3 mmol/L (3.5-5.1); Sodium 142 mmol/L (136-145); Total Protein 8.3 g/dL (6.4-8.2); Triglyceride 54 mg/dL (<150); Vitamin B12 227 pg/mL (193-986)
== END 2024-12-13 01:01 | disposition home or self-care (01) ==
LOC: LOS 01:00
PROVIDERS: PCP Family Medicine; Visit Provider Family Medicine
DX: I10 Essential (primary) hypertension (principal); Z79.01 Long term (current) use of anticoagulants
CPT/HCPCS: 36415; 80053; 80061; 85027; 82607

== ENCOUNTER → 2025-02-25 13:10 | Outpatient (BNVA) | payer MEDICARE, MEDICAID, SELFPAY | PROVIDERS: PCP Family Medicine; Referring Provider Family Medicine; Visit Provider Internal Medicine Cardiovascular Disease | DX: I48.0 Paroxysmal atrial fibrillation (principal); Z79.01 Long term (current) use of anticoagulants; I25.5 Ischemic cardiomyopathy; Z95.0 Presence of cardiac pacemaker; R00.0 Tachycardia, unspecified; I48.92 Unspecified atrial flutter | CPT/HCPCS: 99214 ==

== ENCOUNTER 2025-04-16 08:26 | Outpatient (CLI) | payer MEDICARE, MEDICAID, SELFPAY ==
--- NOTE | 2025-04-16 08:15 | RT.EKG_ITS ---
APPROVED REPORT Exam: Resting ECG Reason for Exam: afib Patient Location: O HR:91 bpm ECG Measurements Heart Rate 91 AXIS MD [id number] P [id number] QRSd 139 QRS 264 QT 417 T 62 QTc 514 Conclusion Atrial fibrillation...? atrial activity Paired ventricular premature complexes...sequence of 2 V complexes Anterior infarct, old...Q >40mS, abnormal ST-T, V2-V5
== END 2025-04-16 08:27 | disposition home or self-care (01) ==
LOC: DI.CARD 08:27
PROVIDERS: PCP Family Medicine; Visit Provider Registered Nurse
DX: R00.0 Tachycardia, unspecified (principal); I48.0 Paroxysmal atrial fibrillation; I49.3 Ventricular premature depolarization
CPT/HCPCS: 93010

== ENCOUNTER → 2025-04-16 12:40 | Outpatient (BNVA) | payer MEDICARE, MEDICAID, SELFPAY | PROVIDERS: PCP Family Medicine; Visit Provider Registered Nurse | DX: I48.0 Paroxysmal atrial fibrillation (principal); R00.0 Tachycardia, unspecified; Z45.018 Encounter for adjustment and management of other part of cardiac pacemaker; Z79.01 Long term (current) use of anticoagulants | CPT/HCPCS: 93005; 93280 ==

== ENCOUNTER 2025-08-11 17:42 | Outpatient (REF) | payer MEDICARE, MEDICAID, SELFPAY ==
[2025-08-11 16:59] LABS: Cannabinoids THC Negative (Negative); METHADONE URINE SCREEN Negative (Negative)
== END 2025-08-11 17:43 | disposition home or self-care (01) ==
LOC: LBN 17:42
PROVIDERS: PCP Family Medicine; Visit Provider Family Medicine
DX: G89.4 Chronic pain syndrome (principal); Z51.81 Encounter for therapeutic drug level monitoring
CPT/HCPCS: 80307; 80373

== ENCOUNTER 2025-08-28 05:44 | Outpatient (CLI) | payer MEDICARE, MEDICAID, SELFPAY ==
--- NOTE | 2025-08-28 12:30 | DI.US_ITS ---
APPROVED REPORT EXAM: Comprehensive 2D, Doppler, and color-flow Echocardiogram Patient Location: Out-Patient Embossing Toolsetter: Susan Shahid RDCS (AE) Indications: Recheck LV Function, Cardiomyopathy,Atrial Fibrillation Other Information Study Quality: Adequate. Technically limited study due to body habitus, arrhythmia throughout exam. Conclusion Normal left ventricular wall thickness and chamber size. Ejection fraction is 35 to 40%. There is global hypokinesis. Patient is also in atrial fibrillation with [id number] variation Normal right ventricular size and function Both atria are enlarged Aortic valve is sclerotic and trileaflet without stenosis or regurgitation Normal mitral valve with trace to mild regurgitation Trace tricuspid regurgitation. Normal estimated right ventricular systolic pressure 27 mmHg Wall motion Left Ventricle The left ventricle is normal size. Left ventricular systolic function is moderately decreased. There is normal left ventricular wall thickness. There is no ventricular septal defect visualized. LVEF is 35-40%. Right Ventricle Right ventricle is grossly normal in size. The right ventricular systolic function is normal. Pacemaker lead is present in the right ventricle. Atria Left atrium is moderately dilated. Right atrium is moderately dilated. The interatrial septum is intact with no evidence for an atrial septal defect. Aortic Valve The Aortic valve is sclerotic. Aortic valve is trileaflet. There is no aortic valvular stenosis. No aortic regurgitation is present. Mitral Valve The mitral valve is normal in structure. No evidence of mitral valve stenosis. Trace to mild mitral regurgitation. Tricuspid Valve The tricuspid valve is normal in structure. There is no tricuspid valve stenosis. Trace tricuspid regurgitation. The RVSP is 27.1_ mmHg. Pulmonic Valve The pulmonary valve is normal in structure. There is no pulmonic valvular stenosis. Trace pulmonic regurgitation. Great Vessels The aortic root is normal in size. The ascending aorta is normal in size. Aortic arch is not well visualized. The IVC collapses <50% with inspiration. Pericardium There is no pericardial effusion. 2D Dimensions IVSD d PLAX 0.93 cm M: 0.6-1.2 Ao Root d 2.95 cm M: 3.1 - 3.7 LVPW d PLAX 0.90 cm M: 0.6 - 1.2 Ao Asc Diam d 3.25 cm M: 2.6 - 3.4 LVID d PLAX 5.74 cm M: 4.2 - 5.8 LVDs 4.91 cm M: 2.5 - 4.0 LV EF Teichholz 30.0 % FS 14.31 % LV EDV (Teich) 162.3 mL LV ESV (Teich) 113.6 mL M-Mode TAPSE 1.85 cm (M/F) >1.7 Auto EF LV EDV A4C 138.3 mL LV EDV A2C 139.3 mL LV EDV BP 136.9 mL LV ESV A4C 89.9 mL LV ESV A2C 83.4 mL LV ESV BP 86.0 mL LVEF(%) A4C 35.0 % LVEF(%) A2C 40.2 % LVEF(%) BP 37.2 % LV SV A4C 48.4 ml LV SV A2C 56.0 ml LV SV BP 50.9 ml LV CO A4C 2.9 L/min LV CO A2C 3.4 L/min LV CO BP 3.1 L/min HR A4C 59.98 BPM HR A2C 59.90 BPM LV EDV Index (BP) LA Volume LA Length A4C 6.4 cm LA Length A2C 7.0 cm LA Area A4C s 22.91 cm2 LA Area A2C s 27.69 cm2 LA Vol A4C A-L 69.52 mL LA Vol A2C A-L 93.08 mL LA Vol Biplane A-L 84.0 mL LA Vol/BSA A4C A-L LA Vol/BSA A2C A-L LA Vol/BSA BP A-L 40.6 mL/m2 LA Vol A4C MOD 65.0 mL LA Vol A2C MOD 89.9 mL LA Vol BP MOD 79.6 mL RA Volume RA Area A4C 26.9 cm2 RA ESV A4C (A-L) 106.1mL RA Vol/BSA A4C A-L RA Length A4C 5.8 cm RA ESV A4C (MOD) 101.4mL LV Diastology MV E' medial 0.108 (>0.07 m/s) MV E Vmax 1.20 (0.4-1.3 m/s) MV E/E' MED 11.12 (<14) MV E' lateral 0.118 (>0.1 m/s) MV E/E' LAT 10.19 (<14) MV E' Average 0.113 m/s MV E/E'(average) 10.63 Aortic Valve AoV Vmax 1.41 m/s LVOT Vmax 1.05 m/s AoV Peak Grad 8.0 mmHg LVOT Peak Grad 4.4 mmHg AoV Area (Vmax) 2.11 cm2 LVOT VTI 0.221 m AoV VTI 0.293 m LVOT Mean Carlos. 0.79 m/s AoV Mean Carlos. 0.99 m/s LVOT Mean Grad 2.8 mmHg AoV Mean Grad 4.5 mmHg LVOT SV 63.08 mL AoV Area (VTI) 2.15 cm2 LVOT Diam s 1.90 cm Velocity Ratio 0.74 Mitral Valve MV DT 179 (160-240 msec) MV Vmax TIPS 1.24 m/s MV Mean Grad 1.7 (<2mmHg) MV VTI 0.312 m Pulmonary Valve PV Vmax 1.07 (0.5-1.5 m/s) RVOT Vmax 0.81 m/s PV Peak Grad 4.7 mmHg RVOT Peak Gr. 2.7 mmHg PV Mean Carlos 0.70 m/s RVOT VTI 0.170 m PV Mean Grad 2.3 mmHg RVOT Mean Gr. 1.5 mmHg Tricuspid Valve RA Pressure 3.00 mmHg TR Vmax 2.45 m/s TV S' 0.12 m/s TR Peak Grad 24.0 mmHg RVSP (TR) 27.1 mmHg
== END 2025-08-28 06:04 ==
LOC: DI 05:44
PROVIDERS: PCP Family Medicine; Visit Provider Internal Medicine Cardiovascular Disease
DX: I25.5 Ischemic cardiomyopathy (principal); I48.0 Paroxysmal atrial fibrillation
CPT/HCPCS: 93306

== ENCOUNTER → 2025-09-04 13:29 | Outpatient (BNVA) | payer MEDICARE, MEDICAID, SELFPAY | PROVIDERS: PCP Family Medicine; Visit Provider Internal Medicine Cardiovascular Disease | DX: I48.0 Paroxysmal atrial fibrillation (principal); Z95.0 Presence of cardiac pacemaker; I25.5 Ischemic cardiomyopathy; Z79.01 Long term (current) use of anticoagulants | CPT/HCPCS: 99214 ==